=== PATIENT | female | born 1940 | race Caucasian/White ===

== ENCOUNTER → 2018-01-03 07:42 | Outpatient (CLI) | payer MEDICARE, SELFPAY ==
[2018-01-03 09:02] LABS: Anion Gap 8 (5-15); BUN 23 mg/dL (7-18); Calcium,Total 10.3 mg/dL (8.5-10.1); Chloride 104 mmol/L (98-107); Creatinine, Serum 1.21 mg/dL (0.55-1.02); EST Glomerular Filtration Rate 46 mL/min (>60); Est Glom Filt Rate - Afr Amer 55 mL/min (>60); Glucose 93 mg/dL (74-106); Potassium 3.9 mmol/L (3.5-5.1); Sodium Level 144 mmol/L (136-145); T4 Free Direct 1.19 ng/dL (0.76-1.46); Thyroid Stim Hormone (TSH) 2.64 uIU/mL (0.358-3.74)
[2018-01-03 09:19] LABS: PTHIN 152.3 pg/mL (18.4-80.1); Vitamin D,25 Hydroxy 32.3 ng/mL (29.95-100.01)
== END ==
PROVIDERS: Family Provider Family Medicine; PCP Family Medicine; Visit Provider Internal Medicine Endocrinology, Diabetes & Metabolism
DX: E21.0 Primary hyperparathyroidism (principal); E03.9 Hypothyroidism, unspecified; E55.9 Vitamin D deficiency, unspecified
CPT/HCPCS: 36415; 80048; 82306; 82330; 83970; 84439; 84443

== ENCOUNTER → 2018-01-17 09:53 | Outpatient (CLI) | payer MEDICARE, SELFPAY ==
--- NOTE | 2018-01-17 10:10 | RAD_ITS ---
STUDY: X-RAY CHEST REASON FOR EXAM: Female, 77 years old. SOB / SOA TECHNIQUE: Frontal and lateral views of the chest. COMPARISON: 8.917 FINDINGS: Chronic appearing increased interstitial lung markings. There is an elevated right hemidiaphragm. Scoliosis of the thoracic spine. There is no demonstrated pleural abnormality. Enlarged heart size. Normal mediastinum and awais. Normal visualized pulmonary arteries. There is atherosclerotic calcification of the aortic arch with tortuosity. There are diffuse degenerative changes of the visualized thoracic spine. There is degenerative osteoarthritis of the bilateral shoulders. There is no demonstrated abnormality of the visualized soft tissue structures of the upper abdomen. RAD/Chest PA and Lateral IMPRESSION: There are no acute findings. Electronically Signed: Cb Ng MD at 17:02 EDT , Service support ,
== END ==
PROVIDERS: Family Provider Family Medicine; PCP Family Medicine; Visit Provider Family Medicine
DX: R06.02 Shortness of breath (principal); I48.0 Paroxysmal atrial fibrillation
CPT/HCPCS: 71046

== ENCOUNTER → 2018-03-06 12:34 | Outpatient (CLI) | payer MEDICARE, SELFPAY ==
--- NOTE | 2018-03-06 13:54 | STE_ITS ---
Reason For Study: DYSPNEA/SOB Stress Results Protocol: Dobutamine Stress Echocardiogram Maximum Predicted HR: 141 bpm Target HR: 120 bpm% Maximum Predicted HR: 95 % DurationHeart Rate Stage (mm:ss) (bpm) BPDos eComment BASELINE 81 136/62 PT UNABLE TO TURN, STUDY DONE ON BACK DSE- 10 MCG 4:06 84 144/6810.00 DSE- 20 MCG 3:15 11 0 137/6720.00 DSE- 30 MCG 3:23 13 4 143/5730.00ATRIAL FIBRILLATION RECOVERY 81 103/50 SPONTANEOUSLY CONVERTED BACK TO SR W/RBBB Stress Duration: 10:44 mm:ss Maximum Stress HR: 134 bpm Baseline Echocardiogram Findings The estimated ejection fraction is 65 %. Stress Echo Wall motion Data Resting WMIntermediate WMStress WM Resting Wall Motion Wall Motion Stress No regional wall motion No regional wall motion abnormalities noted. abnormalities noted. EKG Data The baseline ECG demonstrates normal sinus rhythm with at rate of _ beats per minute. The patient was titrated from 10 mcg to a maximun of 30 mcg of dobutamine during the stress. The maximum heart rate attained was 134 beats per minute. This was 95% of maximum predicted heart rate. At peak infusion, upsloping ST changes only were noted, which did not meet the criteria for ischemia. No clinical angina was noted. Interpretation Summary The estimated ejection fraction is 65 %. The patient was titrated from 10 mcg to a maximun of 30 mcg of dobutamine during the stress. Normal, adequate, dobutamine echocardiogram. Negative for ischemia by EKG and echocardiographic criteria. No anginal symptoms noted. Patient developed frequent PACs and probably transient atrial fibrillation at peak infusion which spontaneously reverted back to normal sinus rhythm during recovery. Appropriate blood pressure response to dobutamine. Final LVEF is 75%. No complications. Ordering Physician: Prakash Cordova Referring Physician: Prakash Cordova Performed By: Lisa Coats RDCS
--- NOTE | 2018-03-06 14:28 | PFTCOMP ---
COMPLETE PULMONARY FUNCTION TEST INTERPRETATION Brief HPI: Patient is a 77 year old female, currently under the care of Dr. Cordova, who presents to [facility] for complete pulmonary function tests secondary to diagnosis of dyspnea. Respiratory therapist reports good effort and reproducible results. Interpretation: Forced expiration spirometry shows no large airways obstructive ventilatory defect with an FEV1 of 87% predicted. There is no significant bronchodilator response by ATS criteria. Spirograms are of poor quality and plateau slowly, indicating slowly emptying areas of the lungs. The patient had only 4 seconds of exhalation, likely underestimating FVC. The respiratory flow volume loop shows a normal pattern. Lung volumes by body plethysmography show an elevated total lung capacity at 5.15 L, 131% predicted. All other lung volumes are elevated symmetrically. Diffusion capacity by carbon monoxide is decreased at 45% predicted. The airway resistance is normal. No previous pulmonary function tests were available for review. Impression: Isolated reduction in diffusion capacity consistent with a pulmonary vascular disorder. Patient does have hyperinflation on lung exam. Consider chest imaging if not done previously.
== END ==
PROVIDERS: Family Provider Family Medicine; PCP Family Medicine; Visit Provider Internal Medicine Cardiovascular Disease
DX: R06.09 Other forms of dyspnea (principal); I50.31 Acute diastolic (congestive) heart failure; R00.1 Bradycardia, unspecified
CPT/HCPCS: 93017; 93350; 94060; 94726; 94729; J7030; A4216

== ENCOUNTER → 2018-03-20 10:16 | Outpatient (CLI) | payer MEDICARE, SELFPAY ==
--- NOTE | 2018-03-20 10:29 | BD_ITS ---
STUDY: DUAL ENERGY X-RAY ABSORPTIOMETRY / DXA REASON FOR EXAM: Female, 78 years old. The patient is postmenopausal. Loss of height. TECHNIQUE: Bone Mineral Density (BMD) measurements of lumbar spine and left hip were obtained. The patient is status post right hip replacement. COMPARISON: Comparison is made with prior study dated March 27, 2005. FINDINGS: Lumbar Spine (L1-L4): g/cm2 (0.869) / T-score (-2.5) / Z-score (-0.6) Findings are suggestive of osteoporosis with a high fracture risk. Left Femur Total: g/cm2 (0.663) / T-score (-2.7) / Z-score (-0.7) Left Femoral Neck: g/cm2 (0.605) / T-score (-3.1) / Z-score (-1.0) The T-Scores on the most recent prior examination were: Lumbar Spine (L1-L4): There has been worsening of bone density since the previous examination. Left Femur Total: which represents a worsening of 31.3%. BD/Dexa Bone Density Study IMPRESSION: The patient is considered osteoporotic as outlined below according to World Awais Organization (WHO) criteria with a high fracture risk. There has been worsening of bone density since the previous examination. Reference Information: The T-score is the number of standard deviations above or below the standard which is normal for young adults at their peak bone mineral density. The World Health Organization (WHO) interprets the T-scores as follows: Above -1 Normal bone density Between -1 and -2.5 Osteopenia Equal to / or below -2.5 Osteoporosis As a practical clinical guideline, osteopenia may be graded as follows: Mild -1 through -1.5 Moderate -1.6 through -2.0 Severe -2.1 through -2.4 The Z-score is the number of standard deviations above or below age-matched controls. A Z-score of less than -1.5 would be considered abnormal. References: 1. NIH Osteoporosis and Related Bone Diseases http://www.osteo.org 2. International Society for Clinical Densitometry http://www.iscd.org 3. National Osteoporosis Foundation http://www.nof.org Electronically Signed: Bharath Barclay MD at 13:04 EDT Tel [phone], Service support ,
== END ==
PROVIDERS: Family Provider Family Medicine; PCP Family Medicine; Visit Provider Internal Medicine Endocrinology, Diabetes & Metabolism
DX: M85.9 Disorder of bone density and structure, unspecified (principal); N95.9 Unspecified menopausal and perimenopausal disorder
CPT/HCPCS: 77080

== ENCOUNTER 2018-03-24 14:01 | Emergency (ER) | payer MEDICARE, SELFPAY ==
[2018-03-24 14:02] VITALS: BP 154/55; PULSE 69; RESP 22; TEMP 36.8; O2SAT 95; BMI 36.1
--- NOTE | 2018-03-24 16:18 | ED.DCSUM_ITS ---
- ER Visit Summary Date of Service: 03/24/18 Chief Complaint: Tongue bleeding History of Present Illness: The patient is a 78 F who presents with a bleeding tongue wound. She is on Eliquis due to history of atrial fibrillation. She states that about 3 hours prior to presentation she began to have bleeding from her tongue. She is uncertain if she bit it or if it was related to something she ate. She denies any pain. She did feel dizzy when she first started bleeding but that has improved. No chest pain or shortness of breath. Physical Examination: Physical exam afebrile vitals are unremarkable There is a 5 mm wound on the top left side of the tongue with mild persistent oozing and bleeding that appeared consistent with having bitten her tongue Heart regular rate Lungs clear Test Results: Not indicated Emergency Department Course and Treatment: Initially had the patient hold pressure but she would not consistently apply pressure because she states it hurt to do so. I took a piece of gauze and soaked this in thrombin placed this on the tongue and used a nosebleed clamp to hold pressure. When I went back into reevaluate her the patient had removed this. Given that she is unable to persistently apply pressure or hold topical medications she was injected with a half a cc of 1% lidocaine with epinephrine which did achieve hemostasis. Patient was advised to use a soft diet. She will continue her current medications and follow-up with her primary care physician. She was discharged. Treatment Plan: [] Disposition: Discharge Impression: Tongue laceration This note was generated with [employer] dictation software. It may contain incorrect words, spelling, and punctuation that were not noted in review of the chart prior to signing ED Disposition - Plan for ED Patient: Chief Complaint: Dental Referrals: Wu Elena MD [Primary Care Provider] -
--- NOTE | 2018-03-24 16:18 | ED.DEP ---
ED Disposition - Plan for ED Patient: Chief Complaint: Dental Instructions: ED Laceration Mouth Referrals: Wu Elena MD [Primary Care Provider] -
== END 2018-03-24 16:33 | disposition home or self-care (01) ==
PROVIDERS: Emergency Provider Emergency Medicine; Family Provider Family Medicine; PCP Family Medicine
DX: S01.512A Laceration without foreign body of oral cavity, initial encounter (principal); I48.91 Unspecified atrial fibrillation; I11.0 Hypertensive heart disease with heart failure; I50.9 Heart failure, unspecified; E78.00 Pure hypercholesterolemia, unspecified; F32.9 Major depressive disorder, single episode, unspecified; Z86.73 Personal history of transient ischemic attack (TIA), and cerebral infarction without residual deficits; Z79.02 Long term (current) use of antithrombotics/antiplatelets; Z79.51 Long term (current) use of inhaled steroids; Z79.82 Long term (current) use of aspirin; Z79.899 Other long term (current) drug therapy; W26.9XXA Contact with unspecified sharp object(s), initial encounter; Y93.89 Activity, other specified; Y92.89 Other specified places as the place of occurrence of the external cause; Y99.8 Other external cause status
CPT/HCPCS: 99282

== ENCOUNTER → 2018-05-06 10:46 | Outpatient (CLI) | payer MEDICARE, SELFPAY ==
[2018-05-06 11:00] VITALS: PULSE 55; PULSE 58; PULSE 64; PULSE 66; PULSE 74; PULSE 77; PULSE 80; O2SAT 90; O2SAT 92; O2SAT 93; O2SAT 94; O2SAT 96; O2SAT 98
--- NOTE | 2018-05-06 11:00 | CPS ---
Pt arrived via walker on 3L oxygen pulse dose flow via nasal cannula. Spo2 on 3L was 98%. Pt placed on room air prior to start of test. Spo2 remained at 98%.
--- NOTE | 2018-05-06 13:30 | PCM.PSN.6M ---
PSN 6 Minute Walk Test - 6 Minute Walk Test 6 Minute Walk Test: 6 Minute Walk Test PSN:6-Minute Walk Test Start: 05/06/18 11:34 Freq: Status: Active Protocol: RESP.6MINW [place] 05/06/18 11:[place] [facility] [place]06/18 11:47 [facility] [id number] 6 Minute Walk Test Date Performed 05/06/18 Time Performed 11:00 Height 4 ft 11 in Weight: 83.915 kg Weight in Pounds 185.[address]: Jonah Daley Assistive device used: Walker Pre-test Oxygen Delivery Method Room Air Pulse Ox (%) 98 Pulse Rate (60-100 beats/min) 55 L Dyspnea Johnathan Scale (0-10) 1 Exertion Johnathan Scale (6-20) 6 1st minute Oxygen Delivery Method Room Air Pulse Ox (%) 96 Pulse Rate (60-100 beats/min) 64 Number of Rests Taken 0 2nd minute Oxygen Delivery Method Room Air Pulse Ox (%) 94 Pulse Rate (60-100 beats/min) 66 Number of Rests Taken 0 Reported Symptoms Increased Work of Breathing 3rd minute Oxygen Delivery Method Room Air Pulse Ox (%) 92 Pulse Rate (60-100 beats/min) 74 Number of Rests Taken 0 Reported Symptoms Increased Work of Breathing 4th minute Oxygen Delivery Method Room Air Pulse Ox (%) 94 Pulse Rate (60-100 beats/min) 74 Number of Rests Taken 0 Reported Symptoms Increased Work of Breathing 5th minute Oxygen Delivery Method Room Air Pulse Ox (%) 90 Pulse Rate (60-100 beats/min) 80 Number of Rests Taken 0 Reported Symptoms Increased Work of Breathing 6th minute Oxygen Delivery Method Room Air Pulse Ox (%) 93 Pulse Rate (60-100 beats/min) 77 Number of Rests Taken 0 Reported Symptoms Increased Work of Breathing Post-test Oxygen Delivery Method Room Air Pulse Ox (%) 98 Pulse Rate (60-100 beats/min) 58 L Dyspnea Johnathan Scale (0-10) 3 Exertion Johnathan Scale (6-20) 13 Number of Rests Taken 0 Full Laps Walked 6 Partial Lap, Number of Tiles Walked 15 Total Distance Walked (ft) 369 05/06/18 11:00 (created 05/06/18 11:39) Cardiopulmonary Services by Gilda Wood Pt arrived via walker on 3L oxygen pulse dose flow via nasal cannula. Spo2 on 3L was 98%. Pt placed on room air prior to start of test. Spo2 remained at 98%. Initialized on 05/06/18 11:39 - END OF NOTE - Interpretation Interpretation: The patient arrived on 3 L pulse dose oxygen, but testing was completed on room air. The patient was able to walk a total of 369 feet over the course of 6 minutes on room air with the assistance of a walker in no breaks. The patient did experience significant desaturation from a baseline of 98% to as low as 90% with ambulation. No significant tachycardia was noted. These findings are consistent with a respiratory limitation exercise tolerance. - Recommendations Recommendations: No supplemental oxygen is indicated at this time based on this testing. Cannot exclude nocturnal hypoxemia.
== END ==
PROVIDERS: Family Provider Family Medicine; PCP Family Medicine; Visit Provider Internal Medicine Critical Care Medicine
DX: R06.02 Shortness of breath (principal)
CPT/HCPCS: 94618

== ENCOUNTER → 2018-07-07 07:55 | Outpatient (CLI) | payer MEDICARE, SELFPAY ==
[2018-07-07 09:19] LABS: PTHIN 167.6 pg/mL (18.4-80.1); Vitamin D,25 Hydroxy 26.2 ng/mL (29.95-100.01)
[2018-07-07 09:22] LABS: BUN 28 mg/dL (7-18); Glucose 92 mg/dL (74-106)
[2018-07-07 09:23] LABS: Anion Gap 8 (5-15); BUN/Creat Ratio 23.3 RATIO (10-20); Calcium,Total 10.2 mg/dL (8.5-10.1); Chloride 105 mmol/L (98-107); EST Glomerular Filtration Rate 46 mL/min (>60); Est Glom Filt Rate - Afr Amer 56 mL/min (>60); Sodium Level 143 mmol/L (136-145); T4 Free Direct 1.26 ng/dL (0.76-1.46); Thyroid Stim Hormone (TSH) 0.64 uIU/mL (0.358-3.74)
== END ==
PROVIDERS: Family Provider Family Medicine; PCP Family Medicine; Referring Provider Internal Medicine Endocrinology, Diabetes & Metabolism; Visit Provider Internal Medicine Endocrinology, Diabetes & Metabolism
DX: E03.9 Hypothyroidism, unspecified (principal); E21.0 Primary hyperparathyroidism; E55.9 Vitamin D deficiency, unspecified
CPT/HCPCS: 36415; 80048; 82306; 82330; 83970; 84439; 84443

== ENCOUNTER → 2018-09-30 10:19 | Outpatient (CLI) | payer MEDICARE, SELFPAY ==
[2018-07-24 14:31] VITALS: BMI 36.9
--- NOTE | 2018-09-30 10:22 | BI_ITS ---
MAMMOGRAPHY - BILATERAL SCREENING REASON FOR EXAM: Female, 78 years old. Routine annual screening examination. PERTINENT HISTORY: Non-contributory. TECHNIQUE: Digital bilateral breast neal (3D mammographic acquisition) in the CC and MLO projections. 2-D mediolateral oblique (MLO) and craniocaudad (CC) views of both breasts were obtained. CAD: Full Field Digital Mammography with Computer Added Detection was performed. COMPARISON: Comparison is made with prior examination dated September 13, 2017 and August 29, 2016. FINDINGS: Breast Composition: There are scattered areas of fibroglandular density. There are no dominant masses or suspicious calcifications. No other significant abnormalities are identified. There has been no significant change since the prior study. BI/SCREENING MAMM (CAD), BILAT IMPRESSION: Stable bilateral screening mammogram. Yearly follow-up mammogram recommended. (A) ASSESSMENT CATEGORY: BIRADS Category 1: Negative. A letter regarding these results will be sent to the patient by the facility within 30 days. Approximately 10% of breast cancers are not detected by mammography. A normal mammogram should not delay biopsy of a clinically suspicious abnormality. [id number] Electronically Signed: Bharath Barclay MD at 11:18 EST Tel [phone], Service support ,
--- OUTSIDE RECORDS SUMMARY | 2018-12-02 13:02 | XMS RPT_ITS ---
:1940 Author Organization [place] Support Name Relationship Address Phone MITRA DE LA CRUZ Unavailable [address] + [place] [address] PRAKASH DE LA CRUZ Unavailable Unavailable + R Unavailable Unavailable Unavailable MITRA DE LA CRUZ Unavailable [address] + [place] [address] PRAKASH DE LA CRUZ Unavailable . + [place] [address] R Unavailable Unavailable Unavailable MITRA DE LA CRUZ Unavailable [address] + [place] [address] PRAKASH DE LA CRUZ Unavailable Unavailable + [place] [address] R Unavailable Unavailable Unavailable MITRA DE LA CRUZ Unavailable [address] + [place] [address] PRAKASH DE LA CRUZ Unavailable Unavailable + [place] [address] R Unavailable Unavailable Unavailable MITRA DE LA CRUZ Unavailable [address] + [place] [address] PRAKASH DE LA CRUZ Unavailable Unavailable + [place] [address] R Unavailable Unavailable Unavailable MITRA DE LA CRUZ Unavailable [address] + [place] [address] PRAKASH DE LA CRUZ Unavailable Unavailable [phone] MITRA DE LA CRUZ Unavailable [address] + [place] [address] PRAKASH DE LA CRUZ Unavailable Unavailable [phone] MITRA DE LA CRUZ Unavailable [address] + [place] [address] PRAKASH DE LA CRUZ Unavailable [address] + [place] [address] R Unavailable Unavailable Unavailable MITRA DE LA CRUZ Unavailable [address] + [place] [address] PRAKASH DE LA CRUZ Unavailable [address] + [place] [address] R Unavailable Unavailable Unavailable MITRA DE LA CRUZ Unavailable [address] + [place] [address] PRAKASH DE LA CRUZ Unavailable [address] + [place] [address] R Unavailable Unavailable Unavailable MITRA DE LA CRUZ Unavailable [address] + [place] [address] PRAKASH DE LA CRUZ Unavailable Unavailable [phone] MITRA DE LA CRUZ Unavailable [address] + [place] [address] PRAKASH DE LA CRUZ Unavailable [address] + [place] [address] R Unavailable Unavailable Unavailable MITRA DE LA CRUZ Unavailable [address] + [place] [address] PRAKASH DE LA CRUZ Unavailable [address] + [place] [address] R Unavailable Unavailable Unavailable MITRA DE LA CRUZ Unavailable [address] + [place] [address] PRAKASH DE LA CRUZ Unavailable [address] + [place] [address] R Unavailable Unavailable Unavailable MITRA DE LA CRUZ Unavailable [address] + [place] [address] PRAKASH DE LA CRUZ Unavailable [address] + [place] [address] R Unavailable Unavailable Unavailable MITRA DE LA CRUZ Unavailable [address] + [place] [address] PRAKASH DE LA CRUZ Unavailable [address] + [place] [address] R Unavailable Unavailable Unavailable KATTY ANAND Unavailable Unavailable + PRAKASH ANAND Unavailable Unavailable + KATTY ANAND Unavailable Unavailable + CHENGPRAKASH Unavailable Unavailable + MITRA DE LA CRUZ Unavailable [address] + [place] [address] R Unavailable Unavailable Unavailable MITRA DE LA CRUZ Unavailable [address] + [place] [address] R Unavailable Unavailable Unavailable MITRA DE LA CRUZ Unavailable [address] + [place] [address] R Unavailable Unavailable Unavailable Care Team Providers Name Role Phone Arley Malik Attending Unavailable [place], Wu Primary Care Unavailable Tyrell, Noel Y Attending Unavailable Tyrell, Noel Y Referring Unavailable [place], Wu Primary Care Unavailable Mireille Sofia Attending Unavailable Oswaldo, Wu Referring Unavailable Tyrell, Noel Y Attending Unavailable Tyrell, Noel Y Referring Unavailable [place], Wu Primary Care Unavailable Pablo Jang Attending Unavailable Jonah Daley D.O. Referring Unavailable Jonah Daley D.O. Attending Unavailable Jonah Daley D.O. Referring Unavailable [place], Wu Primary Care Unavailable Jonah Daley D.O. Attending Unavailable [place], Wu Referring Unavailable [place], Wu Primary Care Unavailable Jelly Fernández Attending Unavailable Prakash Cordova Attending Unavailable Pablo Jang Attending Unavailable Prakash Cordova Referring Unavailable [place], Wu Primary Care Unavailable Vidal Franks Attending Unavailable Prakash Cordova Attending Unavailable Prakash Cordova Referring Unavailable [place], Wu Primary Care Unavailable Prakash Cordova Attending Unavailable Oswaldo, Wu Referring Unavailable [place], Wu Primary Care Unavailable Oswaldo, Wu Attending Unavailable [place], Wu Referring Unavailable [place], Wu Primary Care Unavailable Tyrell, Noel Y Attending Unavailable Tyrell, Noel Y Referring Unavailable [place], Wu Primary Care Unavailable Prakash Cordova Attending Unavailable [place], Wu Referring Unavailable [place], Wu Primary Care Unavailable Naomi WHARTON (LEBRON) Referring Unavailable WU ELENA Attending Unavailable WU ELENA Attending Unavailable Naomi WHARTON (LEBRON) Referring Unavailable WU ELENA Attending Unavailable WU ELENA Referring Unavailable WU ELENA Referring Unavailable WU ELENA Attending Unavailable WU ELENA Referring Unavailable WU ELENA Referring Unavailable WU ELENA Attending Unavailable WU ELENA Referring Unavailable WU ELENA Referring Unavailable WU ELENA Attending Unavailable LUCHO CURTIS., DR. YONY Drew. Attending Unavailable OSWALDO CURTIS, WU Primary Care Unavailable TYRELL CURTIS, NOEL Y Attending Unavailable OSWALDO CURTIS, WU Primary Care Unavailable TYRELL CURTIS, NOEL Y Attending Unavailable OSWALDO CURTIS, WU Primary Care Unavailable Gerhard, Dr. Kirk Linares Attending Unavailable *SELF, REFERRED Referring Unavailable *SELF, REFERRED Primary Care Unavailable Dr. Nathen Newton Attending Unavailable Gerhard, Dr. Kirk Linares Referring Unavailable *SELF, REFERRED Primary Care Unavailable PROBLEMS PROBLEMS DATE TYPE CONDITION / CODE ATTENDING STATUS SOURCE Unknown E21.0 - Primary Tyrell, Active [facility] hyperparathyroidism / [facility] Community E21.0(ICD-10) Hospital Repository Unknown E55.9 - Vitamin D Tyrell, Active [facility] deficiency, unspecified No[facility] Y Community / E55.9(ICD-10) Hospital Repository Unknown E03.9 - Hypothyroidism, Tyrell, Active [facility] 8 unspecified / Noel Y Community E03.9(ICD-10) Hospital Repository Active Occlusion and stenosis NA Active [facility] 8 of unspecified carotid Clinic Main artery / I65.29(ICD-10) [facility] Repository Unknown R06.02 - Shortness of Pablo Jang Active [facility] 8 breath / R06.02(ICD-10) [facility] Hospital Repository Unknown E78.5 - Hyperlipidemia, Prakash Cordova Active [facility] 8 unspecified / Community E78.5(ICD-10) Hospital Repository Unknown I48.0 - Paroxysmal Prakash Cordova Active [facility] 8 atrial fibrillation / Community I48.0(ICD-10) Hospital Repository Unknown Z86.73 - Personal Prakash Cordova Active [facility] 8 history of transient Community ischemic attack (TIA), Hospital and cerebral infarction Repository without residual deficits / Z86.73(ICD-10) Unknown R06.09 - Other forms of Pablo Jang Active [facility] 8 dyspnea / R06.09(ICD-10) [facility] Hospital Repository Unknown I50.31 - Acute diastolic Prakash Cordova Active [facility] 8 (congestive) heart Community failure / I50.31(ICD-10) Hospital Repository Unknown R00.1 - Bradycardia, Prakash Cordova Active [facility] 8 unspecified / Community R00.1(ICD-10) Hospital Repository Active Hypothyroidism, NA Active [facility] unspecified / Clinic Main E03.9(ICD-10) [facility] Rep[facility] Active Bradycardia, unspecified NA Active [facility] / R00.1(ICD-10) Clinic Main [facility] Active Shortness of breath / NA Active [facility] 8 R06.02(ICD-10) [facility] Main [place] Repository Active Unknown / UNK(Unknown) WU ELENA Active [facility] 8 J [facility] Main [place] Repository Active Thoracic aortic NA Active [facility] 7 aneurysm, without Clinic Main rupture / I71.2(ICD-10) [facility] Repository Active Hypercalcemia / NA Active [facility] 8 E83.52(ICD-10) [facility] Repository PROCEDURES PROCEDURES No Procedure Records FoundRESULTS RESULTS SCREENING MAMM (CAD), Observed: 09/30/2018 Status: F Source: [facility] 10:23 AM [facility] REPOSITORY Imaging Services [address] [place] [address] SCREENING MAMM (CAD), BIL MR#: [id number] Acct: [id number] Name: KALINA DE LA CRUZ Rep #: [id number] : 1940 F 78 From: Bharath Barclay MD PCP: Wu Elena MD Status: [facility] Study: SCREENING MAMM (CAD), BILAT Date of Exam: 09/30/18 Exam# [id number] Ordering Dr: Arley Malik MD MAMMOGRAPHY - BILATERAL SCREENING REASON FOR EXAM: Female, 78 years old. Routine annual screening examination. PERTINENT HISTORY: Non-contributory. TECHNIQUE: Digital bilateral breast neal (3D mammographic acquisition) in the CC and MLO projections. 2-D mediolateral oblique (MLO) and craniocaudad (CC) views of both breasts were obtained. CAD: Full Field Digital Mammography with Computer Added Detection was performed. COMPARISON: Comparison is made with prior examination dated September 13, 2017 and August 29, 2016. FINDINGS: Breast Composition: There are scattered areas of fibroglandular density. There are no dominant masses or suspicious calcifications. No other significant abnormalities are identified. There has been no significant change since the prior study. BI/SCREENING MAMM (CAD), BILAT IMPRESSION: Stable bilateral screening mammogram. Yearly follow-up mammogram recommended. (A) ASSESSMENT CATEGORY: BIRADS Category 1: Negative. A letter regarding these results will be sent to the patient by the facility within 30 days. Approximately 10% of breast cancers are not detected by mammography. A normal mammogram should not delay biopsy of a clinically suspicious abnormality. [id number] Electronically Signed: Bharath Barclay MD at 11:18 EST Tel [phone], Service support , CC: Arley Malik MD; Wu Elena MD Database Programmer: Signed CARDIOLOGY VISIT Observed: 07/28/2018 Status: F Source: [facility] RE[facility] 3:46 PM [facility] REPOSITORY [facility] [address] [place] [address]. [address] [place] [address] OFFICE VISIT Date of Service: 07/24/18 MR#: [id number] Acct: [id number] Name: KALINA DE LA CRUZ Rep #: [id number] : 1940 Provider: Mireille Sofia Age/Sex: 78/F Location[place] [facility] [place]: Signed HPI HPI Chief Complaint: Routine f/u Details: KALINA DE LA CRUZ, is a 78 F who presents to the office today for a cardiovascular follow-up. She recently established cardiac care with us. She has a history of hypertension, diastolic dysfunction, atrial fibrillation with history of CVA in 2016, hyperlipidemia and obstructive sleep apnea. She does not have any chest discomfort/heaviness/tightness. Her exercise tolerance is stable for her age. She does not have any worsening symptoms of shortness of breath. She does not have any orthopnea. She denies PND. She does not have any symptoms of congestive heart failure. She does occasionally have palpitations, especially when she is stressed. She does occasionally have lightheadedness /dizziness. She does not have any near-syncope or syncope. She does occasionally have lower extremity edema. She does not have any symptoms of claudication. Intake Vital Signs07/24/18 Height 4 ft 11 in 07/24/18 Weight: 183 lb 07/24/18 Body Mass Index (BMI) 36.9 07/24/18 Blood Pressure 128/60 H 07/24/18 Blood Pressure Location Lt brachial 07/24/18 Blood Pressure Position Sitting Intake Visit Reasons: 6 M Haz Tech Required: No Accompanied by: None Is patient in pain?: No Allergies adhesive Allergy (Verified 07/24/18 14:39) Rash irbesartan Allergy (Verified 07/24/18 14:39) Unknown solifenacin [From Vesicare] Allergy (Verified 07/24/18 14:39) Unknown sulindac [Sulindac] Allergy (Verified 07/24/18 14:39) Unknown atorvastatin [From Lipitor] Adverse Reaction (Verified 07/24/18 14:39) Unknown lisinopril Adverse Reaction (Verified 07/24/18 14:39) Other losartan potassium [From Cozaar] Adverse Reaction (Verified 07/24/18 14:39) Other metoprolol Adverse Reaction (Verified 07/24/18 14:39) GI Upset ramipril [From Altace] Adverse Reaction (Verified 07/24/18 14:39) Other tramadol Adverse Reaction (Verified 07/24/18 14:39) Unknown Medications Apixaban [Eliquis] 5 mg PO BID 04/17/17 [History Confirmed 07/24/18] Aspirin [Aspirin, Baby] 81 mg PO DAILY@0800 04/17/17 [History Confirmed 07/24/18] Atorvastatin Calcium [Lipitor] 10 mg PO QHS 04/17/17 [History Confirmed 07/24/18] Clobetasol Propionate [Temovate Cream (BKC)] 1 applic TOPICAL BID 04/17/17 [History Confirmed 07/24/18] Fluticasone 0.05% [Flonase Nasal [place]] 1 spray NASAL DAILY 04/17/17 [History Confirmed 07/24/18] Polyethylene Glycol 3350 [Miralax] 17 gm PO DAILY 04/17/17 [History Confirmed 07/24/18] Sertraline HCl [Zoloft] 50 mg PO DAILY 04/17/17 [History Confirmed 07/24/18] albuterol sulfate HFA 90 mcg/actuation aerosol inhaler 2 puff INHALATION Q4H PRN g 09/27/17 [History Confirmed 07/24/18] hydrocortisone 2.5 % topical cream 1 applic TOPICAL BID-QID PRN 09/27/17 [History Confirmed 07/24/18] ketoconazole 2 % topical cream 1 applic TOPICAL .COMPLEX 09/27/17 [History Confirmed 07/24/18] levothyroxine 100 mcg tablet 100 mcg PO .COMPLEX 09/27/17 [History Confirmed 07/24/18] nystatin 100,000 unit/gram topical powder 1 applic TOPICAL .COMPLEX 09/27/17 [History Confirmed 07/24/18] potassium chloride ER 10 mEq tablet,extended release 10 meq PO QDAY 09/27/17 [History Confirmed 07/24/18] flecainide 50 mg tablet 50 mg PO Q12H 10/01/17 [History Confirmed 07/24/18] amlodipine 5 mg tablet 5 mg PO QDAY 01/21/18 [History Confirmed 07/24/18] atenolol 50 mg tablet 25 mg PO BID tab 01/21/18 [History Confirmed 07/24/18] hydrochlorothiazide 25 mg tablet 25 mg PO QDAY #30 tab 01/30/18 [Rx Confirmed 07/24/18] Ejection fraction %: 65 to 70 PFSH Medical History Hyperlipidemia (Chronic) Obstructive sleep apnea (Chronic) Carotid stenosis (Chronic) Chronic kidney disease (Chronic) Dementia (Chronic) Meningioma (Chronic) Chronic diastolic heart failure (Chronic) Paroxysmal atrial fibrillation (Chronic) Diastolic CHF, acute (Chronic) Dyspnea on exertion (Chronic) Hyperparathyroidism (Chronic) Hypothyroidism (Chronic) Lymphomatoid papulosis (Chronic) Hypertension (Chronic) Obesity (Chronic) Right bundle branch block (Chronic) AV block, 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) GERD (gastroesophageal reflux disease) (Chronic) Anxiety and depression (Chronic) Thoracic aortic aneurysm (Chronic) History of CVA (cerebrovascular accident) (Chronic) Osteoarthritis (Chronic) Surgical History History of esophageal dilatation (Chronic) H/O total knee replacement (Chronic) History of incisional hernia repair (Chronic) History of total hip replacement (Chronic) Hx of cholecystectomy (Chronic) Family History Father CVA (cerebral vascular accident) Mother CAD (coronary artery disease) Congestive heart failure Social History Smoking Status: Never smoker second hand exposure: No alcohol intake: never substance use type: does not use caffeine: No what type of physical activity do you participate in: walking ROS Const Const: Negative for weakness, fatigue, fever(s) or headache(s) Eyes Eyes: Negative for blind spots, loss of peripheral vision or transient loss of vision ENT ENT: Negative for headache(s), dizziness, tinnitus or Nosebleed/epistaxis Cardio Chest Pain: No Palpitations: No Edema: None Muscle aches with walking: None Resp Respiratory: Negative for SOB with activity, SOB at rest, SOB orthopnea\SOB lying down or Cough GI GI: Negative nausea, vomiting, heartburn or vomiting blood/hematemesis : Negative for hematuria Musc Musc: Negative for muscle aches/ myalgia Neuro Neuro: Negative for weakness, headache(s), dizziness, near syncope, syncope, lightheadedness or orthostatic symptoms Wood Hematologic/Lymphatic: Negative for easy bleeding Endo Endo: Negative for fatigue Cardiology Exam Const Appearance: cooperative, no acute distress and well developed Orientation: alert, awake and oriented x3 Head Head: normocephalic and atraumatic Mouth: moist mucous membranes Eyes General: appearance normal, both eyes and all related structures Conjunctivae: conjunctivae normal Pupils: PERRL EOM: EOM intact bilaterally Neck Neck: normal visual inspection, no lymphadenopathy and no JVD Carotids: Negative bruit Neck Mass: Negative Neck mass Chest Chest inspection: normal inspection of the chest and symmetric chest movement Auscultation: Bilateral: Diminished Lung Sounds Cardio Palpation: normal PMI Rate: regular rate Rhythm: regular rhythm Heart sounds: S1 normal and S2 normal; negative rub, gallop or murmur GI GI: normal to inspection, soft, no hepatosplenomegaly and bowel sounds present; negative tender Neuro General: alert, awake, oriented x3, CN's II-XI intact bilaterally and moves all extremities Extremities Pulses: Normal: Right Posterior Tibial Pulse, Left Posterior Tibial Pulse, Right Radial Pulse, Left Radial Pulse Lower Extremity Edema: None: Bilateral Psych Psychological: anxious Supplemental Info Stress echocardiogram in 2018 demonstrated: The estimated ejection fraction is 65 %. The patient was titrated from 10 mcg to a maximun of 30 mcg of dobutamine during the stress. Normal, adequate, dobutamine echocardiogram. Negative for ischemia by EKG and echocardiographic criteria. No anginal symptoms noted. Patient developed frequent PACs and probably transient atrial fibrillation at peak infusion which spontaneously reverted back to normal sinus rhythm during recovery. Appropriate blood pressure response to dobutamine. Final LVEF is 75%. No complications. PFT in 2018 demonstrated: Isolated reduction in diffusion capacity consistent with a pulmonary vascular disorder. Patient does have hyperinflation on lung exam. Consider chest imaging if not done previously. Assessment AND Plan 1. Essential hypertension I10 Plan Blood pressure is well controlled on current medications, we do not recommend any changes at this time. 2. Dyspnea on exertion R06.09 Plan Patient does not feel that this has worsened. She does continue to have shortness of breath with exertion. She is concerned about her oxygen being discontinued. Encouraged her to discuss this with her primary care doctor and pulmonology. Feel that her shortness of breath is multifactorial and is likely related to her debility in addition to anxiety. 3. Paroxysmal atrial fibrillation I48.0 Plan Patient has had a few minimal recurrences. She will continue with her rate limiting medication her anti-arrhythmic and her factor Xa inhibitor. 4. Pure hypercholesterolemia E78.00; E78.0 Plan This is managed by her primary care doctor. She will continue with her low-dose statin. Plan Detail Additional Comments Thank you for allowing us to participate in patient's plan of care, if you have any questions please do not hesitate to call. This note was generated using a voice recognition system and there may be incorrect words, spelling or punctuation errors that were not noted when reviewing the office note prior to saving. Follow Up 6 Months (6-9 months with MARTHAN) Coding Level of Care Code Off vis,est,level 3 Diagnoses Essential hypertension I10 Hypertension type: essential hypertension Dyspnea on exertion R06.09 Paroxysmal atrial fibrillation I48.0 Pure hypercholesterolemia E78.00; E78.0 Hyperlipidemia type: pure hypercholesterolemia Coding Level of Care Code Off vis,est,level 3 Diagnoses Essential hypertension I10 Hypertension type: essential hypertension Dyspnea on exertion R06.09 Paroxysmal atrial fibrillation I48.0 Pure hypercholesterolemia E78.00; E78.0 Hyperlipidemia type: pure hypercholesterolemia 07/28/18 0819 <Electronically signed by Mireille FRANCOIS> Date Mireille FRANCOIS Cosigner Signature: Date (if applicable) CC: Wu Elena MD PROGRESS Observed: 07/11/2018 Status: COMPLETED Source: [place] 8:42 AM [facility] [place] REPOSITORY [facility] ID: [id number] Author: Wu Elena Service: (none) Author Type: Physician Type: Progress Notes Filed: 07/11/2018 8:59 AM Note Text: Patient presents with: Recheck HPI: Patient presents today for office visit for follow up. Overall doing well. CARDIO:no significant chest pain. Sees cardiology and pulmonary soon. Breathing is gradually a little worse. No worsening cough. No edema. Never got results of her 6 minute walk test. ENDO:sees endo for her hypercalcemia. Just had labs done. HYPOTHYROID:stable. ANTICOAG:no bleeding issues. PSYCH:deals with her husbands memory issues. DERM: sees derm regularly. Still using oxygen. Using walker. No falls. Component Latest Ref Rng AND Units 01/17/2018 WBC 3.70 - 11.00 k/uL 10.13 RBC 3.90 - 5.20 m/uL 4.20 Hemoglobin 11.5 - 15.5 g/dL 13.0 Hematocrit 36.0 - 46.0 % 41.1 MCV 80.0 - 100.0 fL 97.9 MCH 26.0 - 34.0 pG 31.0 MCHC 30.5 - 36.0 g/dL 31.6 RDW-CV 11.5 - 15.0 % 14.0 Platelet Count 150 - 400 k/uL 249 MPV 9.0 - 12.7 fL 12.7 Neut% % 69.6 Abs Neut (ANC) 1.45 - 7.50 k/uL 7.06 Lymph% % 17.4 Abs Lymph 1.00 - 4.00 k/uL 1.76 Placer% % 9.5 Abs Placer <0.87 k/uL 0.96 (H) Eosin% % 2.9 Abs Eosin <0.46 k/uL 0.29 Baso% % 0.6 Abs Baso <0.11 k/uL 0.06 Nucleated Reds 0 /100 WBC 0.0 Absolute nRBC <0.01 k/uL <0.01 Diff Type Auto Diff Protein, Total 6.3 - 8.0 g/dL 7.2 Albumin 3.9 - 4.9 g/dL 4.2 Calcium 8.5 - 10.2 mg/dL 11.0 (H) Bilirubin, Total 0.2 - 1.3 mg/dL 0.4 Alkaline Phosphatase 32 - 117 U/L 100 AST 13 - 35 U/L 23 Glucose 74 - 99 mg/dL 87 BUN 7 - 21 mg/dL 19 Creatinine 0.58 - 0.96 mg/dL 1.14 (H) Sodium 136 - 144 mmol/L 142 Potassium 3.7 - 5.1 mmol/L 4.4 Chloride 97 - 105 mmol/L 100 CO2 22 - 30 mmol/L 27 Anion Gap 9 - 18 mmol/L 15 ALT 7 - 38 U/L 9 eGFR- 56 eGFR-All Other Races . 46 Total Cholesterol, Nonfasting <200 mg/dL 182 Triglycerides, Nonfasting <150 mg/dL 132 HDL Cholesterol, Nonfasting >39 mg/dL 57 LDL Cholesterol, Nonfasting <100 mg/dL 99 Non HDL Cholesterol, Nonfasting <130 mg/dL 125 VLDL Cholesterol, Nonfasting <30 mg/dL 26 Total Chol/HDL Ratio, Nonfasting <5.10 mg/dL 3.19 LDL/HDL Ratio, Nonfasting <2.54 mg/dL 1.74 TSH 0.400 - 5.500 uU/mL 2.510 NT Pro BNP <450 pg/mL 290 MEDICATIONS: Current Outpatient Prescriptions: hydroCHLOROthiazide (HYDRODIURIL, ESIDRIX) 25 mg tablet Take 25 mg by mouth once daily. levothyroxine (SYNTHROID) 100 mcg tablet Take 1 tablet by mouth once daily. Does not take on Saturday fluticasone (FLONASE) 50 mcg/actuation nasal spray Use 1 [place] in each nostril daily at bedtime. before lying down. hydrocortisone 2.5 % cream Apply 1 application to affected area twice daily. Location: under breasts and groin area apixaban (ELIQUIS) 5 mg tab(s) Take 1 tablet by mouth twice daily. atenolol (TENORMIN) 50 mg tablet Take 0.5 tablets by mouth twice daily. amLODIPine (NORVASC) 5 mg tablet Take 1 tablet by mouth once daily. nystatin (MYCOSTATIN) powder Apply 1 application to affected area four times daily. flecainide (TAMBOCOR) 50 mg tablet Take 1 tablet by mouth twice daily. sertraline (ZOLOFT) 50 mg tablet Take 1 tablet by mouth once daily. ketoconazole (NIZORAL) 2 % cream Apply to affected area sparingly twice daily for fungal rash clobetasol (TEMOVATE) 0.05 % ointment Apply 1 application to affected area twice daily. apply as directed Facial Mask misc To use with Oxygen.Hypoxia, rhinitis potassium chloride (KLOR-CON 10) 10 mEq tablet Take 1 tablet by mouth once daily. atorvastatin (LIPITOR) 10 mg tablet Take 1 tablet by mouth daily at bedtime. For cholesterol. polyethylene glycol 3350 (MIRALAX) 17 gram/dose powder One capful with 8 oz of water each day albuterol HFA (PROAIR HFA) 90 mcg/actuation inhaler Inhale 2 Puffs as instructed every 4 hours as needed for Wheezing/Shortness of Breath. aspirin, enteric coated (ASPIRIN, ENTERIC COATED) 81 mg EC tablet Take 81 mg by mouth once daily. No current facility-administered medications for this visit. ALLERGIES: ALLERGIES Allergen Reactions - Adhesive Tape (Lora* Other: See Comments skin thinning, peels - Altace [Ramipril] Cough see note 04/01/06 - Cozaar [Losartan Po* Cough sx began shortly after stopping BRII-I 04/14 - Irbesartan Other: See Comments headache, dizziness - Lipitor [Atorvastat* Elevated CK. - Lisinopril Cough see note 05/12/03 - Sulindac GI Upset - Tramadol Rash - Vesicare [Solifenac* Intolerance Patient had constipation; dry mouth; nausea PAST MEDICAL HISTORY Diagnosis Date - Abnormal electrocardiogram (ECG) (EKG) RBBB, 1 degree AVB - Adjustment disorder with depressed mood - Benign neoplasm of colon - Carotid stenosis recheck in 03/24 - Chronic kidney disease, stage III (moderate) (HCC) - CVA (cerebral vascular accident) (HCC) - Dementia - Diverticulosis of colon (without mention of hemorrhage) - Essential hypertension, benign - Generalized osteoarthrosis, unspecified site - Gout - Headache(784.0) - Hyperparathyroidism (HCC) 2013 - Lymphomatoid papulosis (HCC) - Meningioma (HCC) - Obesity, unspecified - Other and unspecified hyperlipidemia - Unspecified hypothyroidism PAST SURGICAL HISTORY Procedure Laterality Date - COLONOSCOP W/ OR W/O [facility] SPEC 02/08/99 Colonoscopy - COLONOSCOP W/ OR W/O [facility] SPEC 07/12/2008 Colonoscopy - EGD 01/18/2017 - EGD W/O OR W/BRUSH/WASH 11/04/2012 EGD - EGD W/O OR W/BRUSH/WASH 01/18/2017 - INSER NON-TUNNEL CVC >= 5 YR 06/19/07 - LAP CHOLECYSTECT/CHOLANGIOGRAPHY 06/19/07 - LAPAROSCOPY, SURGICAL, APPENDECTOMY 06/19/07 - REPAIR INCIS HERNIA W MESH 11-18-12 - REPAIR INCISIONAL HERNIA,MATILDE 11-18-12 - TOTAL HIP REPLACEMENT Hip replacement, total, right - TOTAL KNEE REPLACEMENT Knee replacement, total, left and right - TOTAL KNEE REPLACEMENT 2013 Right FAMILY HISTORY Problem Relation Age of Onset - other (tia) Father - other (chf) Mother - other (mi) Maternal Grandfather - other (chf) Maternal Grandmother - other (nonhodgkins lymphoma) Daughter - Prostate Cancer Brother Social History Marital status: Spouse name: Mitra Years of education: Number of children: 3 Occupational History Occupation Employer Comment [employer]* Social History Main Topics Smoking status: Never Smoker Smokeless tobacco: Never Used Alcohol use: Yes Comment: socially Drug use: No Reviewed current medications, allergies, past medical history, surgical history, family history and social history today. REVIEW OF SYSTEMS GI: Negative for change in bowel habit : No history of dysuria, frequency or incontinence All other reviewed and negative other than HPI. HEALTH MAINTENANCE: Reviewed health maintenance issues today and recommended the following in detail. There are no preventive care reminders to display for this patient. VITALS: BP 132/62 Pulse (!) 52 Resp 18 Wt 83.5 kg (184 lb) BMI 35.94 kg/m? Last 4 Encounter Wt Readings: Date: Wt: 07/11/2018 83.5 kg (184 lb) 05/21/2018 82.1 kg (181 lb) 01/17/2018 81.9 kg (180 lb 9.6 oz) 10/03/2017 83.5 kg (184 lb) PHYSICAL EXAMINATION: General appearance: Well appearing, alert, in no acute distress, well-hydrated, well nourished. Skin: Skin color, texture, turgor normal, no suspicious rashes or lesions Head: Normocephalic, no masses, lesions, tenderness or abnormalities Neck: Supple, no adenopathy; thyroid symmetric, normal size, no bruits Lungs: Lungs clear to auscultation. No wheezing, rhonchi, rales Heart: RRR without murmur, gallop, or rubs. No ectopy Abdomen: Normal abdominal exam, Abdomen soft, non-tender. Bowel sounds normal. No masses, organomegaly Extremities: No deformities, edema, skin discoloration, clubbing or cyanosis. Good capillary refill. Musculoskeletal: No joint swelling, deformity, or tenderness Psych: alert and pleasant. ASSESSMENT/PLAN: 1. Paroxysmal atrial fibrillation (HCC) - ICD9: 427.31, ICD10: I48.0 (primary diagnosis) - call if any issues. 2. Chronic anticoagulation - ICD9: V58.61, ICD10: Z79.01 - call if any issues. 3. Essential hypertension, benign - ICD9: 401.1, ICD10: I10 - good control - Continue current medication(s) - Goal of BP <130/80 4. Chronic kidney disease, stage III (moderate) (HCC) - ICD9: 585.3, ICD10: N18.3 - Call if any issues. - CBC + DIFF - BASIC METABOLIC PNL 5. Hyperlipidemia, unspecified hyperlipidemia type - ICD9: 272.4, ICD10: E78.5 Wu Elena MD RTO in six months and prn. CNOV Observed: 07/11/2018 Status: COMPLETED Source: [place] 8:00 AM [facility] REPOSITORY Office Visit (FAMPWS) KALINA DE LA CRUZ ([id number]) 1940 F Date Time Provider Department 07/11/18 8:00 AM [facility] ELENA During your visit today, we recorded the following information about you: Pulse Respiration Blood pressure Weight 52/minute 18/minute 132/62 83.5 kg Sylvie Garcia [employer] COUNCIL DIRECTOR 07/11/2018 8:15 AM Signed Has been a little more short of breath. Is scheduled to see Dr Cordova on 07/24/18. Denies swelling. Having a little more palpitations. Feels her nose is a little more stuffed up. Using [place], Vicks, and Vicks nasal spray. Seeing Dr Santillan next week for follow up. Wu Elena MD 07/11/2018 8:59 AM Signed Patient presents with: Recheck HPI: Patient presents today for office visit for follow up. Overall doing well. CARDIO:no significant chest pain. Sees cardiology and pulmonary soon. Breathing is gradually a little worse. No worsening cough. No edema. Never got results of her 6 minute walk test. ENDO:sees endo for her hypercalcemia. Just had labs done. HYPOTHYROID:stable. ANTICOAG:no bleeding issues. PSYCH:deals with her husbands memory issues. DERM: sees derm regularly. Still using oxygen. Using walker. No falls. Component Latest Ref Rng AND Units 01/17/2018 WBC 3.70 - 11.00 k/uL 10.13 RBC 3.90 - 5.20 m/uL 4.20 Hemoglobin 11.5 - 15.5 g/dL 13.0 Hematocrit 36.0 - 46.0 % 41.1 MCV 80.0 - 100.0 fL 97.9 MCH 26.0 - 34.0 pG 31.0 MCHC 30.5 - 36.0 g/dL 31.6 RDW-CV 11.5 - 15.0 % 14.0 Platelet Count 150 - 400 k/uL 249 MPV 9.0 - 12.7 fL 12.7 Neut% % 69.6 Abs Neut (ANC) 1.45 - 7.50 k/uL 7.06 Lymph% % 17.4 Abs Lymph 1.00 - 4.00 k/uL 1.76 Placer% % 9.5 Abs Placer <0.87 k/uL 0.96 (H) Eosin% % 2.9 Abs Eosin <0.46 k/uL 0.29 Baso% % 0.6 Abs Baso <0.11 k/uL 0.06 Nucleated Reds 0 /100 WBC 0.0 Absolute nRBC <0.01 k/uL <0.01 Diff Type Auto Diff Protein, Total 6.3 - 8.0 g/dL 7.2 Albumin 3.9 - 4.9 g/dL 4.2 Calcium 8.5 - 10.2 mg/dL 11.0 (H) Bilirubin, Total 0.2 - 1.3 mg/dL 0.4 Alkaline Phosphatase 32 - 117 U/L 100 AST 13 - 35 U/L 23 Glucose 74 - 99 mg/dL 87 BUN 7 - 21 mg/dL 19 Creatinine 0.58 - 0.96 mg/dL 1.14 (H) Sodium 136 - 144 mmol/L 142 Potassium 3.7 - 5.1 mmol/L 4.4 Chloride 97 - 105 mmol/L 100 CO2 22 - 30 mmol/L 27 Anion Gap 9 - 18 mmol/L 15 ALT 7 - 38 U/L 9 eGFR- 56 eGFR-All Other Races . 46 Total Cholesterol, Nonfasting <200 mg/dL 182 Triglycerides, Nonfasting <150 mg/dL 132 HDL Cholesterol, Nonfasting >39 mg/dL 57 LDL Cholesterol, Nonfasting <100 mg/dL 99 Non HDL Cholesterol, Nonfasting <130 mg/dL 125 VLDL Cholesterol, Nonfasting <30 mg/dL 26 Total Chol/HDL Ratio, Nonfasting <5.10 mg/dL 3.19 LDL/HDL Ratio, Nonfasting <2.54 mg/dL 1.74 TSH 0.400 - 5.500 uU/mL 2.510 NT Pro BNP <450 pg/mL 290 MEDICATIONS: Current Outpatient Prescriptions: hydroCHLOROthiazide (HYDRODIURIL, ESIDRIX) 25 mg tablet Take 25 mg by mouth once daily. levothyroxine (SYNTHROID) 100 mcg tablet Take 1 tablet by mouth once daily. Does not take on Saturday fluticasone (FLONASE) 50 mcg/actuation nasal spray Use 1 [place] in each nostril daily at bedtime. before lying down. hydrocortisone 2.5 % cream Apply 1 application to affected area twice daily. Location: under breasts and groin area apixaban (ELIQUIS) 5 mg tab(s) Take 1 tablet by mouth twice daily. atenolol (TENORMIN) 50 mg tablet Take 0.5 tablets by mouth twice daily. amLODIPine (NORVASC) 5 mg tablet Take 1 tablet by mouth once daily. nystatin (MYCOSTATIN) powder Apply 1 application to affected area four times daily. flecainide (TAMBOCOR) 50 mg tablet Take 1 tablet by mouth twice daily. sertraline (ZOLOFT) 50 mg tablet Take 1 tablet by mouth once daily. ketoconazole (NIZORAL) 2 % cream Apply to affected area sparingly twice daily for fungal rash clobetasol (TEMOVATE) 0.05 % ointment Apply 1 application to affected area twice daily. apply as directed Facial Mask misc To use with Oxygen.Hypoxia, rhinitis potassium chloride (KLOR-CON 10) 10 mEq tablet Take 1 tablet by mouth once daily. atorvastatin (LIPITOR) 10 mg tablet Take 1 tablet by mouth daily at bedtime. For cholesterol. polyethylene glycol 3350 (MIRALAX) 17 gram/dose powder One capful with 8 oz of water each day albuterol HFA (PROAIR HFA) 90 mcg/actuation inhaler Inhale 2 Puffs as instructed every 4 hours as needed for Wheezing/Shortness of Breath. aspirin, enteric coated (ASPIRIN, ENTERIC COATED) 81 mg EC tablet Take 81 mg by mouth once daily. No current facility-administered medications for this visit. ALLERGIES: ALLERGIES Allergen Reactions - Adhesive Tape (Lora* Other: See Comments skin thinning, peels - Altace [Ramipril] Cough see note 04/01/06 - Cozaar [Losartan Po* Cough sx began shortly after stopping BRII-I 04/14 - Irbesartan Other: See Comments headache, dizziness - Lipitor [Atorvastat* Elevated CK. - Lisinopril Cough see note 05/12/03 - Sulindac GI Upset - Tramadol Rash - Vesicare [Solifenac* Intolerance Patient had constipation; dry mouth; nausea PAST MEDICAL HISTORY Diagnosis Date - Abnormal electrocardiogram (ECG) (EKG) RBBB, 1 degree AVB - Adjustment disorder with depressed mood - Benign neoplasm of colon - Carotid stenosis recheck in 03/24 - Chronic kidney disease, stage III (moderate) (HCC) - CVA (cerebral vascular accident) (HCC) - Dementia - Diverticulosis of colon (without mention of hemorrhage) - Essential hypertension, benign - Generalized osteoarthrosis, unspecified site - Gout - Headache(784.0) - Hyperparathyroidism (HCC) 2013 - Lymphomatoid papulosis (HCC) - Meningioma (HCC) - Obesity, unspecified - Other and unspecified hyperlipidemia - Unspecified hypothyroidism PAST SURGICAL HISTORY Procedure Laterality Date - COLONOSCOP W/ OR W/O [facility] SPEC 02/08/99 Colonoscopy - COLONOSCOP W/ OR W/O [facility] SPEC 07/12/2008 Colonoscopy - EGD 01/18/2017 - EGD W/O OR W/BRUSH/WASH 11/04/2012 EGD - EGD W/O OR W/BRUSH/WASH 01/18/2017 - INSER NON-TUNNEL CVC >= 5 YR 06/19/07 - LAP CHOLECYSTECT/CHOLANGIOGRAPHY 06/19/07 - LAPAROSCOPY, SURGICAL, APPENDECTOMY 06/19/07 - REPAIR INCIS HERNIA W MESH 11-18-12 - REPAIR INCISIONAL HERNIA,MATILDE 11-18-12 - TOTAL HIP REPLACEMENT Hip replacement, total, right - TOTAL KNEE REPLACEMENT Knee replacement, total, left and right - TOTAL KNEE REPLACEMENT 2013 Right FAMILY HISTORY Problem Relation Age of Onset - other (tia) Father - other (chf) Mother - other (mi) Maternal Grandfather - other (chf) Maternal Grandmother - other (nonhodgkins lymphoma) Daughter - Prostate Cancer Brother Social History Marital status: Spouse name: Mitra Years of education: Number of children: 3 Occupational History Occupation Employer Comment [employer]* Social History Main Topics Smoking status: Never Smoker Smokeless tobacco: Never Used Alcohol use: Yes Comment: socially Drug use: No Reviewed current medications, allergies, past medical history, surgical history, family history and social history today. REVIEW OF SYSTEMS GI: Negative for change in bowel habit : No history of dysuria, frequency or incontinence All other reviewed and negative other than HPI. HEALTH MAINTENANCE: Reviewed health maintenance issues today and recommended the following in detail. There are no preventive care reminders to display for this patient. VITALS: BP 132/62 Pulse (!) 52 Resp 18 Wt 83.5 kg (184 lb) BMI 35.94 kg/m? Last 4 Encounter Wt Readings: Date: Wt: 07/11/2018 83.5 kg (184 lb) 05/21/2018 82.1 kg (181 lb) 01/17/2018 81.9 kg (180 lb 9.6 oz) 10/03/2017 83.5 kg (184 lb) PHYSICAL EXAMINATION: General appearance: Well appearing, alert, in no acute distress, well-hydrated, well nourished. Skin: Skin color, texture, turgor normal, no suspicious rashes or lesions Head: Normocephalic, no masses, lesions, tenderness or abnormalities Neck: Supple, no adenopathy; thyroid symmetric, normal size, no bruits Lungs: Lungs clear to auscultation. No wheezing, rhonchi, rales Heart: RRR without murmur, gallop, or rubs. No ectopy Abdomen: Normal abdominal exam, Abdomen soft, non-tender. Bowel sounds normal. No masses, organomegaly Extremities: No deformities, edema, skin discoloration, clubbing or cyanosis. Good capillary refill. Musculoskeletal: No joint swelling, deformity, or tenderness Psych: alert and pleasant. ASSESSMENT/PLAN: 1. Paroxysmal atrial fibrillation (HCC) - ICD9: 427.31, ICD10: I48.0 (primary diagnosis) - call if any issues. 2. Chronic anticoagulation - ICD9: V58.61, ICD10: Z79.01 - call if any issues. 3. Essential hypertension, benign - ICD9: 401.1, ICD10: I10 - good control - Continue current medication(s) - Goal of BP <130/80 4. Chronic kidney disease, stage III (moderate) (HCC) - ICD9: 585.3, ICD10: N18.3 - Call if any issues. - CBC + DIFF - BASIC METABOLIC PNL 5. Hyperlipidemia, unspecified hyperlipidemia type - ICD9: 272.4, ICD10: E78.5 Wu Elena MD RTO in six months and prn. Referring Provider: SELF [[id number]] Allergies As of Date: 07/11/2018 Noted Allergy Reaction ADHESIVE TAPE (ROSINS) 02/21/2011 14 - Other: See Comments Comments: skin thinning, peels ALTACE (RAMIPRIL) 04/01/2006 3 - Cough Comments: see note 04/01/06 COZAAR (LOSARTAN POTASSIUM) 05/06/2006 3 - Cough Comments: sx began shortly after stopping BRII-I 04/14 IRBESARTAN 04/16/2013 14 - Other: See Comments Comments: headache, dizziness LIPITOR (ATORVASTATIN CALCIUM) 03/28/2009 Comments: Elevated CK. LISINOPRIL 11/29/2005 3 - Cough Comments: see note 05/12/03 SULINDAC 11/09/2009 8 - GI Upset TRAMADOL 07/04/2011 2 - Rash VESICARE (SOLIFENACIN SUCCINATE) 10/05/2010 5 - Intolerance Comments: Patient had constipation; dry mouth; nausea Date Reviewed: 07/11/2018 Reviewed by: Sylvie Garcia LPN - Fully Assessed Reason for Visit: Recheck [92] Primary Visit Diagnosis:Paroxysmal atrial fibrillation (HCC) [I48.0] Other Visit Diagnoses:Chronic anticoagulation [Z79.01] Essential hypertension, benign [I10] Chronic kidney disease, stage III (moderate) (HCC) [N18.3] Hyperlipidemia, unspecified hyperlipidemia type [E78.5] Order(s):CBC + DIFF [SQCBCDIF] Order #: [id number] FUTURE BASIC METABOLIC PNL [SQBMP] Order #: [id number] FUTURE Prescriptions as of 07/11/2018 Sig: HYDROCHLOROTHIAZIDE 25 MG TAB* Take 25 mg by mouth once shital* LEVOTHYROXINE 100 MCG TABLET Take 1 tablet by mouth once d* FLUTICASONE 50 MCG/ACTUATION * Use 1 [place] in each nostril d* HYDROCORTISONE 2.5 % TOPICAL * Apply 1 application to affect* APIXABAN 5 MG TABLET Take 1 tablet by mouth twice * ATENOLOL 50 MG TABLET Take 0.5 tablets by mouth twi* AMLODIPINE 5 MG TABLET Take 1 tablet by mouth once d* NYSTATIN 100,000 UNIT/GRAM TO* Apply 1 application to affect* FLECAINIDE 50 MG TABLET Take 1 tablet by mouth twice * SERTRALINE 50 MG TABLET Take 1 tablet by mouth once d* KETOCONAZOLE 2 % TOPICAL CREAM Apply to affected area sparin* CLOBETASOL 0.05 % TOPICAL OIN* Apply 1 application to affect* FACIAL MASK To use with Oxygen. Hypoxi* POTASSIUM CHLORIDE ER 10 MEQ * Take 1 tablet by mouth once d* ATORVASTATIN 10 MG TABLET Take 1 tablet by mouth daily * POLYETHYLENE GLYCOL 3350 17 G* One capful with 8 oz of water* ALBUTEROL SULFATE HFA 90 MCG/* Inhale 2 Puffs as instructed * ASPIRIN 81 MG TABLET,DELAYED * Take 81 mg by mouth once shital* Problem List As Of Date 07/11/2018 Noted Resolved BENIGN HYPERTENSION [I10] INVALID FOR* Hypothyroidism [E03.9] INVALID FOR* More... OBESITY NOS [E66.9] INVALID FOR* Major depressive disorder, recurrent episode, u*INVALID FOR*08/30/2014 GENERAL OSTEOARTHROSIS [M15.9] INVALID FOR*01/12/2008 Hyperlipidemia [E78.5] INVALID FOR* CHOLECYSTITIS SEE ALSO GALLBLADDER ACUTE WITH*INVALID FOR*09/20/2008 CHRONIC KIDNEY DISEASE, STAGE I [N18.1] INVALID FOR*09/20/2008 Osteoarthritis [M19.90] INVALID FOR* CHRONIC KIDNEY DISEASE, STAGE III (MOD) [N18.3] INVALID FOR* More... 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 Bilateral carotid artery stenosis [I65.23] INVALID FOR* More... Shortness of breath [R06.02] INVALID FOR*01/25/2017 More... RODOLFO (obstructive sleep apnea) [G47.33] INVALID FOR* Meningioma (HCC) [D32.9] More... Memory loss [R41.3] INVALID FOR* More... Atrial fibrillation (HCC) [I48.91] INVALID FOR* More... Thoracic aortic aneurysm without rupture (HCC) *INVALID FOR* More... Hypercalcemia [E83.52] INVALID FOR* Chronic anticoagulation [Z79.01] INVALID FOR* Left renal mass [N28.89] INVALID FOR* More... Other osteoporosis without current pathological*INVALID FOR* More... Chronic respiratory failure with hypoxia (HCC) *INVALID FOR* More... Visit Notes: >> Sylvie Garcia [employer] COUNCIL DIRECTOR SatJul 11, 2018 8:09 AM Status: Signed Has been a little more short of breath. Is scheduled to see Dr Cordova on 07/24/18. Denies swelling. Having a little more palpitations. Feels her nose is a little more stuffed up. Using [place], Vicks, and Vicks nasal spray. Seeing Dr Santillan next week for follow up. Disposition: Return in about 6 months (around 01/08/2019). Follow-up and Disposition History Recorded Encounter Status:Closed by [facility] ELENA MD on 07/11/18 VITAMIN D,25 HYDROXY Collected: 07/07/2018 Status: F Source: [place] 8:02 AM [facility] REPOSITORY TYPE CODE TESTS RESULT OUT OF REFERENCE UNITS RANGE LAB L506.1000 29.95-100.01 ng/mL Low Vitamin D 26.2 25-OH Result Comment: Vitamin D 25(OH) Status Range Deficiency <20 ng/mL (50nmol/L) Insuffciency 20 - 30 ng/mL (50 - 75 nmol/L) Sufficiency 30 - 100 ng/mL (75 - 250 nmol/L) Toxicity >100 ng/mL (>250 nmol/L) Performed By: #### L506.1000 #### [facility] [address] [place], [address] PTHIN Collected: 07/07/2018 Status: F Source: [place] 8:02 AM [facility] REPOSITORY TYPE CODE TESTS RESULT OUT OF RANGE REFERENCE UNITS LAB L509.1000 18.4-80.1 pg/mL High PTHIN 167.6 Performed By: #### L509.1000 #### [facility] [address] [place], [address] BASIC METABOLIC Collected: 07/07/2018 Status: F Source: [place] PROFILE (BMP) 8:02 AM [facility] REPOSITORY TYPE CODE TESTS RESULT OUT OF RANGE REFERENCE UNITS LAB L501.0100 74-106 mg/dL Normal GLU 92 Result Comment: Please note revised GLUCOSE reference range effective 2017. LAB L501.1000 7-18 mg/dL High BUN 28 LAB L501.1100 0.55-1.02 mg/dL High CREAT,SERUM 1.20 Result Comment: The validity of the calculated GFR AND GFRAA in patients over 70 years has not been determined. Clinical correlation is essential. LAB L501.1110 >60 mL/min Low EST GFR 46 Result Comment: Non- GFR Calc LAB L501.1115 >60 mL/min Low EST GFR - AA 56 Result Comment: GFR Calc LAB L501.1300 10-20 RATIO High BUN/CRE 23.3 LAB L501.2200 8.5-10.1 mg/dL High CA 10.2 LAB L501.5300 136-145 mmol/L NA Normal 143 LAB L501.5600 3.5-5.1 mmol/L K Normal 4.0 LAB L501.5900 98-107 mmol/L CL Normal 105 LAB L501.6100 21.0-32.0 mmol/L Normal CO2 30.0 LAB L501.6200 5-15 Normal GAP 8 Performed By: #### L500.2500, L501.9520, L506.0400 #### [facility] [address] [place], [place], [id number] THYROID STIM HORMONE Collected: 07/07/2018 Status: F Source: [place] (TSH) 8:02 AM [facility] REPOSITORY TYPE CODE TESTS RESULT OUT OF RANGE REFERENCE UNITS LAB L501.9520 0.358-3.74 uIU/mL Normal TSH 0.64 Performed By: #### L500.2500, L501.9520, L506.0400 #### [facility] [address] [place], [place], [id number] T4 FREE DIRECT Collected: 07/07/2018 Status: F Source: [place] 8:02 AM [facility] REPOSITORY TYPE CODE TESTS RESULT OUT OF RANGE REFERENCE UNITS LAB L506.0400 0.76-1.46 ng/dL Normal T4 FREE 1.26 DIRECT Performed By: #### L500.2500, L501.9520, L506.0400 #### [facility] [place], [address] CALCIUM IONIZED Collected: 07/07/2018 Status: F Source: [place] 8:02 AM [facility] REPOSITORY TYPE CODE TESTS RESULT OUT OF REFERENCE UNITS RANGE LAB L3100.9600 4.5-5.6 mg/dL High IONIZED CA 6.2 Result Comment: Performed at: - [facility] [address] [id number] Project Account Manager: Garret Bean PhD, Phone: [phone] Performed By: #### L3100.9600 #### [facility] (refer to report for specific site) refer to report for address and phone number PROGRESS Observed: 05/21/2018 Status: COMPLETED Source: [place] 8:21 AM [facility] REPOSITORY HNO ID: [id number] Author: Wu Elena Service: (none) Author Type: Physician Type: Progress Notes Filed: 05/21/2018 9:08 AM Note Text: Patient presents with: Recheck Imm/Inj: Flu Vaccine HPI: Patient presents today for office visit for follow up. HYPERTENSION: bp at home has been stable. No side effects from meds. HLD: no myalgias.requests cholesterol was just done. Anticoagulation: had bitten her tongue and had bleeding. They ended up giving her an injection to stop it. She said they called in an ? ENT to fix it. CAD:sees Dr Cordova in July. No chest pain, no increased swelling. No new dizziness. NEURO: has seen neurology. No changes in mentation. HYPOTHYROID:most recent tsh was stable. No new issues. PULM: no worsening shortness of breath. Has seen Dr. Daley. Has not been there recently. Still wearing oxygen Just saw urology. Now seeing every other year. No changes. PSYCH: DERM: no new skin lesions. Only has to see derm prn ENDO:saw Dr. Santillan. She had bone density and is now being treated for her bone density, Component Latest Ref Rng AND Units 01/17/2018 WBC 3.70 - 11.00 k/uL 10.13 RBC 3.90 - 5.20 m/uL 4.20 Hemoglobin 11.5 - 15.5 g/dL 13.0 Hematocrit 36.0 - 46.0 % 41.1 MCV 80.0 - 100.0 fL 97.9 MCH 26.0 - 34.0 pG 31.0 MCHC 30.5 - 36.0 g/dL 31.6 RDW-CV 11.5 - 15.0 % 14.0 Platelet Count 150 - 400 k/uL 249 MPV 9.0 - 12.7 fL 12.7 Neut% % 69.6 Abs Neut (ANC) 1.45 - 7.50 k/uL 7.06 Lymph% % 17.4 Abs Lymph 1.00 - 4.00 k/uL 1.76 Placer% % 9.5 Abs Placer <0.87 k/uL 0.96 (H) Eosin% % 2.9 Abs Eosin <0.46 k/uL 0.29 Baso% % 0.6 Abs Baso <0.11 k/uL 0.06 Nucleated Reds 0 /100 WBC 0.0 Absolute nRBC <0.01 k/uL <0.01 Diff Type Auto Diff Protein, Total 6.3 - 8.0 g/dL 7.2 Albumin 3.9 - 4.9 g/dL 4.2 Calcium 8.5 - 10.2 mg/dL 11.0 (H) Bilirubin, Total 0.2 - 1.3 mg/dL 0.4 Alkaline Phosphatase 32 - 117 U/L 100 AST 13 - 35 U/L 23 Glucose 74 - 99 mg/dL 87 BUN 7 - 21 mg/dL 19 Creatinine 0.58 - 0.96 mg/dL 1.14 (H) Sodium 136 - 144 mmol/L 142 Potassium 3.7 - 5.1 mmol/L 4.4 Chloride 97 - 105 mmol/L 100 CO2 22 - 30 mmol/L 27 Anion Gap 9 - 18 mmol/L 15 ALT 7 - 38 U/L 9 eGFR- 56 eGFR-All Other Races . 46 Total Cholesterol, Nonfasting <200 mg/dL 182 Triglycerides, Nonfasting <150 mg/dL 132 HDL Cholesterol, Nonfasting >39 mg/dL 57 LDL Cholesterol, Nonfasting <100 mg/dL 99 Non HDL Cholesterol, Nonfasting <130 mg/dL 125 VLDL Cholesterol, Nonfasting <30 mg/dL 26 Total Chol/HDL Ratio, Nonfasting <5.10 mg/dL 3.19 LDL/HDL Ratio, Nonfasting <2.54 mg/dL 1.74 TSH 0.400 - 5.500 uU/mL 2.510 NT Pro BNP <450 pg/mL 290 MEDICATIONS: Current Outpatient Prescriptions: hydroCHLOROthiazide (HYDRODIURIL, ESIDRIX) 25 mg tablet Take 25 mg by mouth once daily. fluticasone (FLONASE) 50 mcg/actuation nasal spray Use 1 [place] in each nostril daily at bedtime. before lying down. hydrocortisone 2.5 % cream Apply 1 application to affected area twice daily. Location: under breasts and groin area apixaban (ELIQUIS) 5 mg tab(s) Take 1 tablet by mouth twice daily. atenolol (TENORMIN) 50 mg tablet Take 0.5 tablets by mouth twice daily. amLODIPine (NORVASC) 5 mg tablet Take 1 tablet by mouth once daily. nystatin (MYCOSTATIN) powder Apply 1 application to affected area four times daily. flecainide (TAMBOCOR) 50 mg tablet Take 1 tablet by mouth twice daily. sertraline (ZOLOFT) 50 mg tablet Take 1 tablet by mouth once daily. ketoconazole (NIZORAL) 2 % cream Apply to affected area sparingly twice daily for fungal rash clobetasol (TEMOVATE) 0.05 % ointment Apply 1 application to affected area twice daily. apply as directed Facial Mask misc To use with Oxygen.Hypoxia, rhinitis potassium chloride (KLOR-CON 10) 10 mEq tablet Take 1 tablet by mouth once daily. atorvastatin (LIPITOR) 10 mg tablet Take 1 tablet by mouth daily at bedtime. For cholesterol. levothyroxine (SYNTHROID) 100 mcg tablet Take 1 tablet by mouth once daily. Does not take on Saturday polyethylene glycol 3350 (MIRALAX) 17 gram/dose powder One capful with 8 oz of water each day albuterol HFA (PROAIR HFA) 90 mcg/actuation inhaler Inhale 2 Puffs as instructed every 4 hours as needed for Wheezing/Shortness of Breath. aspirin, enteric coated (ASPIRIN, ENTERIC COATED) 81 mg EC tablet Take 81 mg by mouth once daily. No current facility-administered medications for this visit. ALLERGIES: ALLERGIES Allergen Reactions - Adhesive Tape (Lora* Other: See Comments skin thinning, peels - Altace [Ramipril] Cough see note 04/01/06 - Cozaar [Losartan Po* Cough sx began shortly after stopping BRII-I 04/14 - Irbesartan Other: See Comments headache, dizziness - Lipitor [Atorvastat* Elevated CK. - Lisinopril Cough see note 05/12/03 - Sulindac GI Upset - Tramadol Rash - Vesicare [Solifenac* Intolerance Patient had constipation; dry mouth; nausea PAST MEDICAL HISTORY Diagnosis Date - Abnormal electrocardiogram (ECG) (EKG) RBBB, 1 degree AVB - Adjustment disorder with depressed mood - Benign neoplasm of colon - Carotid stenosis recheck in 03/24 - Chronic kidney disease, stage III (moderate) (HCC) - CVA (cerebral vascular accident) (HCC) - Dementia - Diverticulosis of colon (without mention of hemorrhage) - Essential hypertension, benign - Generalized osteoarthrosis, unspecified site - Gout - Headache(784.0) - Hyperparathyroidism (HCC) 2013 - Lymphomatoid papulosis (HCC) - Meningioma (HCC) - Obesity, unspecified - Other and unspecified hyperlipidemia - Unspecified hypothyroidism PAST SURGICAL HISTORY Procedure Laterality Date - COLONOSCOP W/ OR W/O [facility] SPEC 02/08/99 Colonoscopy - COLONOSCOP W/ OR W/O [facility] SPEC 07/12/2008 Colonoscopy - EGD 01/18/2017 - EGD W/O OR W/BRUSH/WASH 11/04/2012 EGD - EGD W/O OR W/BRUSH/WASH 01/18/2017 - INSER NON-TUNNEL CVC >= 5 YR 06/19/07 - LAP CHOLECYSTECT/CHOLANGIOGRAPHY 06/19/07 - LAPAROSCOPY, SURGICAL, APPENDECTOMY 06/19/07 - REPAIR INCIS HERNIA W MESH 11-18-12 - REPAIR INCISIONAL HERNIA,MATILDE 11-18-12 - TOTAL HIP REPLACEMENT Hip replacement, total, right - TOTAL KNEE REPLACEMENT Knee replacement, total, left and right - TOTAL KNEE REPLACEMENT 2013 Right FAMILY HISTORY Problem Relation Age of Onset - other (tia) Father - other (chf) Mother - other (mi) Maternal Grandfather - other (chf) Maternal Grandmother - other (nonhodgkins lymphoma) Daughter - Prostate Cancer Brother Social History Marital status: Spouse name: Mitra Years of education: Number of children: 3 Occupational History Occupation Employer Comment [employer]* Social History Main Topics Smoking status: Never Smoker Smokeless tobacco: Never Used Alcohol use: Yes Comment: socially Drug use: No Reviewed current medications, allergies, past medical history, surgical history, family history and social history today. REVIEW OF SYSTEMS Neuro: uses walker at home. GI: Negative for change in bowel habit, uses occasional mirlax : some chronic frequency. wears depends. All other reviewed and negative other than HPI. HEALTH MAINTENANCE: Reviewed health maintenance issues today and recommended the following in detail. BP CONTROLLED (<130/80) due on 1956 INFLUENZA(1) due on 05/10/2018 VITALS: BP 118/68 Pulse (!) 52 Resp 16 Wt 82.1 kg (181 lb) BMI 35.35 kg/m? Last 4 Encounter Wt Readings: Date: Wt: 05/21/2018 82.1 kg (181 lb) 01/17/2018 81.9 kg (180 lb 9.6 oz) 10/03/2017 83.5 kg (184 lb) 04/18/2017 85.7 kg (189 lb) PHYSICAL EXAMINATION: General appearance: Well appearing, alert, in no acute distress, well-hydrated, well nourished. and wearing oxygen and using walker Skin: Skin color, texture, turgor normal, no suspicious rashes or lesions Head: Normocephalic, no masses, lesions, tenderness or abnormalities Oropharynx: tongue shows no lesion. Neck: Supple, no adenopathy; thyroid symmetric, normal size, no bruits Lungs: Lungs clear to auscultation. No wheezing, rhonchi, rales Heart: RRR without murmur, gallop, or rubs. No ectopy Abdomen: Normal abdominal exam, Abdomen soft, non-tender. Bowel sounds normal. No masses, organomegaly Extremities: No deformities, edema, skin discoloration, clubbing or cyanosis. Good capillary refill. Psych: alert and oriented. ASSESSMENT/PLAN: 1. Paroxysmal atrial fibrillation (HCC) - ICD9: 427.31, ICD10: I48.0 (primary diagnosis) - continue to see Dr. Cordova. Call if any issues. 2. Need for vaccination - ICD9: V05.9, ICD10: Z23 - INFLUENZA SEASONAL HIGH DOSE AGE 65+ 3. Other osteoporosis without current pathological fracture - ICD9: 733.09, ICD10: M81.8 - Reviewed the need for Calcium and Vitamin D supplements and weight bearing exercise as tolerated 4. Chronic respiratory failure with hypoxia (HCC) - ICD9: 518.83, 799.02, ICD10: J96.11 - continue oxygen. 5. Left renal mass - ICD9: 593.9, ICD10: N28.89 - seeing [facility]. 6. Chronic anticoagulation - ICD9: V58.61, ICD10: Z79.01 - call if any bleeding. 7. Meningioma (HCC) - ICD9: 225.2, ICD10: D32.9 - most recent mri was negative. 8. Memory loss - ICD9: 780.93, ICD10: R41.3 - stable. 9. Hyperparathyroidism (HCC) - ICD9: 252.00, ICD10: E21.3 - sees Dr. Palmer 10. Lymphomatoid papulosis (HCC) - ICD9: 709.8, ICD10: C86.6 - no new skin lesions 11. Essential hypertension, benign - ICD9: 401.1, ICD10: I10 - good control - Continue current medication(s) - Goal of BP <130/80 12. Hypothyroidism, unspecified type - ICD9: 244.9, ICD10: E03.9 - Instructed patient on importance of taking on an empty stomach either first thing in the morning or at bedtime. - LEVOTHYROXINE 100 MCG TABLET 13. Hyperlipidemia, unspecified hyperlipidemia type - ICD9: 272.4, ICD10: E78.5 - good control - Continue current medication. 14. Chronic kidney disease, stage III (moderate) (HCC) - ICD9: 585.3, ICD10: N18.3 - stable 15. Thoracic aortic aneurysm without rupture (HCC) - ICD9: 441.2, ICD10: I71.2 - most recent ct showed just ectasia. 16. Stenosis of carotid artery, unspecified laterality - ICD9: 433.10, ICD10: I65.29 - recheck - US CAROTID ARTERIES [facility]TA [facility] Wu Elena MD PROGRESS Observed: 05/21/2018 Status: COMPLETED Source: [place] 8:15 AM [facility] REPOSITORY HNO ID: [id number] Author: Katty Morales Ma Service: (none) Author Type: (none) Type: Progress Notes Filed: 05/21/2018 9:08 AM Note Text: Influenza Vaccine Documentation: ? Patient is identified by name and date of : Yes ? Patient is older than 6 months of age: Yes ? Patient denies a severe allergy to any vaccine component or to a previous dose of influenza vaccine: Yes FOR EGG ALLERGY CONCERNS, REFER TO PROVIDER. ? Denies allergy to gelatin, formaldehyde, thimerosol :Yes ? Patient is afebrile and not moderately or severely ill: Yes ? Does the patient have a history of Guillain ?Comfort Syndrome (a severe paralytic illness): No ? Denies bone marrow transplant prior 6 months or solid organ transplant prior 3 months: Yes ? Denies a history of fainting after a prior injection or medical procedure? Yes If patient has fainted in the past, the CDC recommends sitting or lying down for 15 minutes after the vaccination. ? VIS sheet provided: Yes ? See Immunization Form in [facility] for details of immunizations administered today. If patient reports dizziness, vision changes or ringing in the ears post vaccination ? please have patient sit or lie down for 15 minutes. CNOV Observed: 05/21/2018 Status: COMPLETED Source: [place] 8:00 AM [facility] REPOSITORY [facility] KALINA DE LA CRUZ ([id number]) 1940 F Date Time Provider Department 05/21/18 8:00 AM [facility] During your visit today, we recorded the following information about you: Pulse Respiration Blood pressure Weight 52/minute 16/minute 118/68 82.1 kg Katty Morales Ma 05/21/2018 9:08 AM Signed Influenza Vaccine Documentation: ? Patient is identified by name and date of : Yes ? Patient is older than 6 months of age: Yes ? Patient denies a severe allergy to any vaccine component or to a previous dose of influenza vaccine: Yes FOR EGG ALLERGY CONCERNS, REFER TO PROVIDER. ? Denies allergy to gelatin, formaldehyde, thimerosol :Yes ? Patient is afebrile and not moderately or severely ill: Yes ? Does the patient have a history of Guillain ?Comfort Syndrome (a severe paralytic illness): No ? Denies bone marrow transplant prior 6 months or solid organ transplant prior 3 months: Yes ? Denies a history of fainting after a prior injection or medical procedure? Yes If patient has fainted in the past, the CDC recommends sitting or lying down for 15 minutes after the vaccination. ? VIS sheet provided: Yes ? See Immunization Form in [facility] for details of immunizations administered today. If patient reports dizziness, vision changes or ringing in the ears post vaccination ? please have patient sit or lie down for 15 minutes. Wu Elena MD 05/21/2018 9:08 AM Signed Patient presents with: Recheck Imm/Inj: Flu Vaccine HPI: Patient presents today for office visit for follow up. HYPERTENSION: bp at home has been stable. No side effects from meds. HLD: no myalgias.requests cholesterol was just done. Anticoagulation: had bitten her tongue and had bleeding. They ended up giving her an injection to stop it. She said they called in an ? ENT to fix it. CAD:sees Dr Cordova in July. No chest pain, no increased swelling. No new dizziness. NEURO: has seen neurology. No changes in mentation. HYPOTHYROID:most recent tsh was stable. No new issues. PULM: no worsening shortness of breath. Has seen Dr. Daley. Has not been there recently. Still wearing oxygen Just saw urology. Now seeing every other year. No changes. PSYCH: DERM: no new skin lesions. Only has to see derm prn ENDO:saw Dr. Santillan. She had bone density and is now being treated for her bone density, Component Latest Ref Rng AND Units 01/17/2018 WBC 3.70 - 11.00 k/uL 10.13 RBC 3.90 - 5.20 m/uL 4.20 Hemoglobin 11.5 - 15.5 g/dL 13.0 Hematocrit 36.0 - 46.0 % 41.1 MCV 80.0 - 100.0 fL 97.9 MCH 26.0 - 34.0 pG 31.0 MCHC 30.5 - 36.0 g/dL 31.6 RDW-CV 11.5 - 15.0 % 14.0 Platelet Count 150 - 400 k/uL 249 MPV 9.0 - 12.7 fL 12.7 Neut% % 69.6 Abs Neut (ANC) 1.45 - 7.50 k/uL 7.06 Lymph% % 17.4 Abs Lymph 1.00 - 4.00 k/uL 1.76 Placer% % 9.5 Abs Placer <0.87 k/uL 0.96 (H) Eosin% % 2.9 Abs Eosin <0.46 k/uL 0.29 Baso% % 0.6 Abs Baso <0.11 k/uL 0.06 Nucleated Reds 0 /100 WBC 0.0 Absolute nRBC <0.01 k/uL <0.01 Diff Type Auto Diff Protein, Total 6.3 - 8.0 g/dL 7.2 Albumin 3.9 - 4.9 g/dL 4.2 Calcium 8.5 - 10.2 mg/dL 11.0 (H) Bilirubin, Total 0.2 - 1.3 mg/dL 0.4 Alkaline Phosphatase 32 - 117 U/L 100 AST 13 - 35 U/L 23 Glucose 74 - 99 mg/dL 87 BUN 7 - 21 mg/dL 19 Creatinine 0.58 - 0.96 mg/dL 1.14 (H) Sodium 136 - 144 mmol/L 142 Potassium 3.7 - 5.1 mmol/L 4.4 Chloride 97 - 105 mmol/L 100 CO2 22 - 30 mmol/L 27 Anion Gap 9 - 18 mmol/L 15 ALT 7 - 38 U/L 9 eGFR- 56 eGFR-All Other Races . 46 Total Cholesterol, Nonfasting <200 mg/dL 182 Triglycerides, Nonfasting <150 mg/dL 132 HDL Cholesterol, Nonfasting >39 mg/dL 57 LDL Cholesterol, Nonfasting <100 mg/dL 99 Non HDL Cholesterol, Nonfasting <130 mg/dL 125 VLDL Cholesterol, Nonfasting <30 mg/dL 26 Total Chol/HDL Ratio, Nonfasting <5.10 mg/dL 3.19 LDL/HDL Ratio, Nonfasting <2.54 mg/dL 1.74 TSH 0.400 - 5.500 uU/mL 2.510 NT Pro BNP <450 pg/mL 290 MEDICATIONS: Current Outpatient Prescriptions: hydroCHLOROthiazide (HYDRODIURIL, ESIDRIX) 25 mg tablet Take 25 mg by mouth once daily. fluticasone (FLONASE) 50 mcg/actuation nasal spray Use 1 [place] in each nostril daily at bedtime. before lying down. hydrocortisone 2.5 % cream Apply 1 application to affected area twice daily. Location: under breasts and groin area apixaban (ELIQUIS) 5 mg tab(s) Take 1 tablet by mouth twice daily. atenolol (TENORMIN) 50 mg tablet Take 0.5 tablets by mouth twice daily. amLODIPine (NORVASC) 5 mg tablet Take 1 tablet by mouth once daily. nystatin (MYCOSTATIN) powder Apply 1 application to affected area four times daily. flecainide (TAMBOCOR) 50 mg tablet Take 1 tablet by mouth twice daily. sertraline (ZOLOFT) 50 mg tablet Take 1 tablet by mouth once daily. ketoconazole (NIZORAL) 2 % cream Apply to affected area sparingly twice daily for fungal rash clobetasol (TEMOVATE) 0.05 % ointment Apply 1 application to affected area twice daily. apply as directed Facial Mask misc To use with Oxygen.Hypoxia, rhinitis potassium chloride (KLOR-CON 10) 10 mEq tablet Take 1 tablet by mouth once daily. atorvastatin (LIPITOR) 10 mg tablet Take 1 tablet by mouth daily at bedtime. For cholesterol. levothyroxine (SYNTHROID) 100 mcg tablet Take 1 tablet by mouth once daily. Does not take on Saturday polyethylene glycol 3350 (MIRALAX) 17 gram/dose powder One capful with 8 oz of water each day albuterol HFA (PROAIR HFA) 90 mcg/actuation inhaler Inhale 2 Puffs as instructed every 4 hours as needed for Wheezing/Shortness of Breath. aspirin, enteric coated (ASPIRIN, ENTERIC COATED) 81 mg EC tablet Take 81 mg by mouth once daily. No current facility-administered medications for this visit. ALLERGIES: ALLERGIES Allergen Reactions - Adhesive Tape (Lora* Other: See Comments skin thinning, peels - Altace [Ramipril] Cough see note 04/01/06 - Cozaar [Losartan Po* Cough sx began shortly after stopping BRII-I 04/14 - Irbesartan Other: See Comments headache, dizziness - Lipitor [Atorvastat* Elevated CK. - Lisinopril Cough see note 05/12/03 - Sulindac GI Upset - Tramadol Rash - Vesicare [Solifenac* Intolerance Patient had constipation; dry mouth; nausea PAST MEDICAL HISTORY Diagnosis Date - Abnormal electrocardiogram (ECG) (EKG) RBBB, 1 degree AVB - Adjustment disorder with depressed mood - Benign neoplasm of colon - Carotid stenosis recheck in 03/24 - Chronic kidney disease, stage III (moderate) (HCC) - CVA (cerebral vascular accident) (HCC) - Dementia - Diverticulosis of colon (without mention of hemorrhage) - Essential hypertension, benign - Generalized osteoarthrosis, unspecified site - Gout - Headache(784.0) - Hyperparathyroidism (HCC) 2013 - Lymphomatoid papulosis (HCC) - Meningioma (HCC) - Obesity, unspecified - Other and unspecified hyperlipidemia - Unspecified hypothyroidism PAST SURGICAL HISTORY Procedure Laterality Date - COLONOSCOP W/ OR W/O [facility] SPEC 02/08/99 Colonoscopy - COLONOSCOP W/ OR W/O [facility] SPEC 07/12/2008 Colonoscopy - EGD 01/18/2017 - EGD W/O OR W/BRUSH/WASH 11/04/2012 EGD - EGD W/O OR W/BRUSH/WASH 01/18/2017 - INSER NON-TUNNEL CVC >= 5 YR 06/19/07 - LAP CHOLECYSTECT/CHOLANGIOGRAPHY 06/19/07 - LAPAROSCOPY, SURGICAL, APPENDECTOMY 06/19/07 - REPAIR INCIS HERNIA W MESH 11-18-12 - REPAIR INCISIONAL HERNIA,MATILDE 11-18-12 - TOTAL HIP REPLACEMENT Hip replacement, total, right - TOTAL KNEE REPLACEMENT Knee replacement, total, left and right - TOTAL KNEE REPLACEMENT 2013 Right FAMILY HISTORY Problem Relation Age of Onset - other (tia) Father - other (chf) Mother - other (mi) Maternal Grandfather - other (chf) Maternal Grandmother - other (nonhodgkins lymphoma) Daughter - Prostate Cancer Brother Social History Marital status: Spouse name: Mitra Years of education: Number of children: 3 Occupational History Occupation Employer Comment [employer]* Social History Main Topics Smoking status: Never Smoker Smokeless tobacco: Never Used Alcohol use: Yes Comment: socially Drug use: No Reviewed current medications, allergies, past medical history, surgical history, family history and social history today. REVIEW OF SYSTEMS Neuro: uses walker at home. GI: Negative for change in bowel habit, uses occasional mirlax : some chronic frequency. wears depends. All other reviewed and negative other than HPI. HEALTH MAINTENANCE: Reviewed health maintenance issues today and recommended the following in detail. BP CONTROLLED (<130/80) due on 1956 INFLUENZA(1) due on 05/10/2018 VITALS: BP 118/68 Pulse (!) 52 Resp 16 Wt 82.1 kg (181 lb) BMI 35.35 kg/m? Last 4 Encounter Wt Readings: Date: Wt: 05/21/2018 82.1 kg (181 lb) 01/17/2018 81.9 kg (180 lb 9.6 oz) 10/03/2017 83.5 kg (184 lb) 04/18/2017 85.7 kg (189 lb) PHYSICAL EXAMINATION: General appearance: Well appearing, alert, in no acute distress, well-hydrated, well nourished. and wearing oxygen and using walker Skin: Skin color, texture, turgor normal, no suspicious rashes or lesions Head: Normocephalic, no masses, lesions, tenderness or abnormalities Oropharynx: tongue shows no lesion. Neck: Supple, no adenopathy; thyroid symmetric, normal size, no bruits Lungs: Lungs clear to auscultation. No wheezing, rhonchi, rales Heart: RRR without murmur, gallop, or rubs. No ectopy Abdomen: Normal abdominal exam, Abdomen soft, non-tender. Bowel sounds normal. No masses, organomegaly Extremities: No deformities, edema, skin discoloration, clubbing or cyanosis. Good capillary refill. Psych: alert and oriented. ASSESSMENT/PLAN: 1. Paroxysmal atrial fibrillation (HCC) - ICD9: 427.31, ICD10: I48.0 (primary diagnosis) - continue to see Dr. Cordova. Call if any issues. 2. Need for vaccination - ICD9: V05.9, ICD10: Z23 - INFLUENZA SEASONAL HIGH DOSE AGE 65+ 3. Other osteoporosis without current pathological fracture - ICD9: 733.09, ICD10: M81.8 - Reviewed the need for Calcium and Vitamin D supplements and weight bearing exercise as tolerated 4. Chronic respiratory failure with hypoxia (HCC) - ICD9: 518.83, 799.02, ICD10: J96.11 - continue oxygen. 5. Left renal mass - ICD9: 593.9, ICD10: N28.89 - seeing [facility]. 6. Chronic anticoagulation - ICD9: V58.61, ICD10: Z79.01 - call if any bleeding. 7. Meningioma (HCC) - ICD9: 225.2, ICD10: D32.9 - most recent mri was negative. 8. Memory loss - ICD9: 780.93, ICD10: R41.3 - stable. 9. Hyperparathyroidism (HCC) - ICD9: 252.00, ICD10: E21.3 - sees Dr. Palmer 10. Lymphomatoid papulosis (HCC) - ICD9: 709.8, ICD10: C86.6 - no new skin lesions 11. Essential hypertension, benign - ICD9: 401.1, ICD10: I10 - good control - Continue current medication(s) - Goal of BP <130/80 12. Hypothyroidism, unspecified type - ICD9: 244.9, ICD10: E03.9 - Instructed patient on importance of taking on an empty stomach either first thing in the morning or at bedtime. - LEVOTHYROXINE 100 MCG TABLET 13. Hyperlipidemia, unspecified hyperlipidemia type - ICD9: 272.4, ICD10: E78.5 - good control - Continue current medication. 14. Chronic kidney disease, stage III (moderate) (HCC) - ICD9: 585.3, ICD10: N18.3 - stable 15. Thoracic aortic aneurysm without rupture (HCC) - ICD9: 441.2, ICD10: I71.2 - most recent ct showed just ectasia. 16. Stenosis of carotid artery, unspecified laterality - ICD9: 433.10, ICD10: I65.29 - recheck - US CAROTID ARTERIES [facility] Wu Elena MD Referring Provider: WU ELENA [[id number]] Allergies As of Date: 05/21/2018 Noted Allergy Reaction ADHESIVE TAPE (ROSINS) 02/21/2011 14 - Other: See Comments Comments: skin thinning, peels ALTACE (RAMIPRIL) 04/01/2006 3 - Cough Comments: see note 04/01/06 COZAAR (LOSARTAN POTASSIUM) 05/06/2006 3 - Cough Comments: sx began shortly after stopping BRII-I 04/14 IRBESARTAN 04/16/2013 14 - Other: See Comments Comments: headache, dizziness LIPITOR (ATORVASTATIN CALCIUM) 03/28/2009 Comments: Elevated CK. LISINOPRIL 11/29/2005 3 - Cough Comments: see note 05/12/03 SULINDAC 11/09/2009 8 - GI Upset TRAMADOL 07/04/2011 2 - Rash VESICARE (SOLIFENACIN SUCCINATE) 10/05/2010 5 - Intolerance Comments: Patient had constipation; dry mouth; nausea Date Reviewed: 05/21/2018 Reviewed by: Katty Morales Ma - Fully Assessed Reason for Visit: Recheck [92] Imm/Inj [58] Cmt: Flu Vaccine Reason For Visit History Recorded Primary Visit Diagnosis:Paroxysmal atrial fibrillation (HCC) [I48.0] Other Visit Diagnoses:Need for vaccination [Z23] Other osteoporosis without current pathological fracture [M81.8] Chronic respiratory failure with hypoxia (HCC) [J96.11] Left renal mass [N28.89] Chronic anticoagulation [Z79.01] Meningioma (HCC) [D32.9] Memory loss [R41.3] Hyperparathyroidism (HCC) [E21.3] Lymphomatoid papulosis (HCC) [C86.6] Essential hypertension, benign [I10] Hypothyroidism, unspecified type [E03.9] Hyperlipidemia, unspecified hyperlipidemia type [E78.5] Chronic kidney disease, stage III (moderate) (HCC) [N18.3] Thoracic aortic aneurysm without rupture (HCC) [I71.2] Stenosis of carotid artery, unspecified laterality [I65.29] Order(s):INFLUENZA SEASONAL HIGH DOSE AGE 65+ [[id number]] Order #: [id number] levothyroxine (SYNTHROID) 100 mcg tabletTake 1 tablet by mouth once daily. Does not take on SaturdayDisp: 30 tabletRfl: 11 CAROTID ARTERIES [facility] [[id number]] Order #: [id number] FUTURE Prescriptions as of 05/21/2018 Sig: HYDROCHLOROTHIAZIDE 25 MG TAB* Take 25 mg by mouth once shital* LEVOTHYROXINE 100 MCG TABLET Take 1 tablet by mouth once d* FLUTICASONE 50 MCG/ACTUATION * Use 1 [place] in each nostril d* HYDROCORTISONE 2.5 % TOPICAL * Apply 1 application to affect* APIXABAN 5 MG TABLET Take 1 tablet by mouth twice * ATENOLOL 50 MG TABLET Take 0.5 tablets by mouth twi* AMLODIPINE 5 MG TABLET Take 1 tablet by mouth once d* NYSTATIN 100,000 UNIT/GRAM TO* Apply 1 application to affect* FLECAINIDE 50 MG TABLET Take 1 tablet by mouth twice * SERTRALINE 50 MG TABLET Take 1 tablet by mouth once d* KETOCONAZOLE 2 % TOPICAL CREAM Apply to affected area sparin* CLOBETASOL 0.05 % TOPICAL OIN* Apply 1 application to affect* FACIAL MASK To use with Oxygen. Hypoxi* POTASSIUM CHLORIDE ER 10 MEQ * Take 1 tablet by mouth once d* ATORVASTATIN 10 MG TABLET Take 1 tablet by mouth daily * POLYETHYLENE GLYCOL 3350 17 G* One capful with 8 oz of water* ALBUTEROL SULFATE HFA 90 MCG/* Inhale 2 Puffs as instructed * ASPIRIN 81 MG TABLET,DELAYED * Take 81 mg by mouth once shital* Problem List As Of Date 05/21/2018 Noted Resolved BENIGN HYPERTENSION [I10] INVALID FOR* Hypothyroidism [E03.9] INVALID FOR* More... OBESITY NOS [E66.9] INVALID FOR* Major depressive disorder, recurrent episode, u*INVALID FOR*08/30/2014 GENERAL OSTEOARTHROSIS [M15.9] INVALID FOR*01/12/2008 Hyperlipidemia [E78.5] INVALID FOR* CHOLECYSTITIS SEE ALSO GALLBLADDER ACUTE WITH*INVALID FOR*09/20/2008 CHRONIC KIDNEY DISEASE, STAGE I [N18.1] INVALID FOR*09/20/2008 Osteoarthritis [M19.90] INVALID FOR* CHRONIC KIDNEY DISEASE, STAGE III (MOD) [N18.3] INVALID FOR* More... 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 Bilateral carotid artery stenosis [I65.23] INVALID FOR* More... Shortness of breath [R06.02] INVALID FOR*01/25/2017 More... RODOLFO (obstructive sleep apnea) [G47.33] INVALID FOR* Meningioma (HCC) [D32.9] More... Memory loss [R41.3] INVALID FOR* More... Atrial fibrillation (HCC) [I48.91] INVALID FOR* More... Thoracic aortic aneurysm without rupture (HCC) *INVALID FOR* More... Hypercalcemia [E83.52] INVALID FOR* Chronic anticoagulation [Z79.01] INVALID FOR* Left renal mass [N28.89] INVALID FOR* More... Other osteoporosis without current pathological*INVALID FOR* More... Chronic respiratory failure with hypoxia (HCC) *INVALID FOR* More... Prescriptions ordered this encounter Disp Refills Start End LEVOTHYROXINE 100 MCG TABLET 30 t* 11 05/21/2018 Route: ORAL Sig: Take 1 tablet by mouth once daily. Does not take on Saturday Medications Discontinued During This Encounter furosemide (LASIX) 20 mg tablet 60 t* 1 01/27/2018 05/21/2018 Route: ORAL Sig: Take 1 tablet by mouth once daily. Disc: Discontinued by another Health Care Provider pantoprazole DR (PROTONIX) 40 mg tab* 30 t* 5 02/07/2017 05/21/2018 Route: ORAL Sig: Take 1 tablet by mouth once daily. Disc: Discontinued by another Health Care Provider levothyroxine (SYNTHROID) 100 mcg ta* 07/19/2017 05/21/2018 Class: Med Update Route: ORAL Sig: Take 1 tablet by mouth once daily. Does not take on Saturday Disc: Reason for discontinue is not on file. Disposition: Return in about 3 months (around 08/20/2018). Follow-up and Disposition History Recorded Encounter Status:Closed by WU ELENA MD on 05/21/18 6 MINUTE WALK TEST Observed: 05/06/2018 Status: F Source: [facility] 1:31 PM [facility] REPOSITORY Pulmonary Services/Neurology [address] [place] [address] MR#: [id number] Acct: [id number] Name: KALINA DE LA CRUZ Rep #: [id number] : 1940 78 From: Pablo Jang MD Referring Dr: Jonah Daley D.O. Date: Ordering Dr: Sex: F C Location: PSN PSN 6 Minute Walk Test - 6 Minute Walk Test 6 Minute Walk Test: 6 Minute Walk Test PSN:6-Minute Walk Test Start: 05/06/18 11:34 Freq: Status: Active Protocol: [id number] Document 05/06/18 11:00 [facility] (Rec: 05/06/18 11:47 [facility] [id number]) 6 Minute Walk Test Date Performed 05/06/18 Time Performed 11:00 Height 4 ft 11 in Weight: 83.915 kg Weight in Pounds 185.[address]: Jonah Daley Assistive device used: Walker Pre-test Oxygen Delivery Method Room Air Pulse Ox (%) 98 Pulse Rate (60-100 beats/min) 55 L Dyspnea Johnathan Scale (0-10) 1 Exertion Johnathan Scale (6-20) 6 1st minute Oxygen Delivery Method Room Air Pulse Ox (%) 96 Pulse Rate (60-100 beats/min) 64 Number of Rests Taken 0 2nd minute Oxygen Delivery Method Room Air Pulse Ox (%) 94 Pulse Rate (60-100 beats/min) 66 Number of Rests Taken 0 Reported Symptoms Increased Work of Breathing 3rd minute Oxygen Delivery Method Room Air Pulse Ox (%) 92 Pulse Rate (60-100 beats/min) 74 Number of Rests Taken 0 Reported Symptoms Increased Work of Breathing 4th minute Oxygen Delivery Method Room Air Pulse Ox (%) 94 Pulse Rate (60-100 beats/min) 74 Number of Rests Taken 0 Reported Symptoms Increased Work of Breathing 5th minute Oxygen Delivery Method Room Air Pulse Ox (%) 90 Pulse Rate (60-100 beats/min) 80 Number of Rests Taken 0 Reported Symptoms Increased Work of Breathing 6th minute Oxygen Delivery Method Room Air Pulse Ox (%) 93 Pulse Rate (60-100 beats/min) 77 Number of Rests Taken 0 Reported Symptoms Increased Work of Breathing Post-test Oxygen Delivery Method Room Air Pulse Ox (%) 98 Pulse Rate (60-100 beats/min) 58 L Dyspnea Johnathan Scale (0-10) 3 Exertion Johnathan Scale (6-20) 13 Number of Rests Taken 0 Full Laps Walked 6 Partial Lap, Number of Tiles Walked 15 Total Distance Walked (ft) 369 05/06/18 11:00 (created 05/06/18 11:39) Cardiopulmonary Services by Gilda Wood Pt arrived via walker on 3L oxygen pulse dose flow via nasal cannula. Spo2 on 3L was 98%. Pt placed on room air prior to start of test. Spo2 remained at 98%. Initialized on 05/06/18 11:39 - END OF NOTE - Interpretation Interpretation: The patient arrived on 3 L pulse dose oxygen, but testing was completed on room air. The patient was able to walk a total of 369 feet over the course of 6 minutes on room air with the assistance of a walker in no breaks. The patient did experience significant desaturation from a baseline of 98% to as low as 90% with ambulation. No significant tachycardia was noted. These findings are consistent with a respiratory limitation exercise tolerance. - Recommendations Recommendations: No supplemental oxygen is indicated at this time based on this testing. Cannot exclude nocturnal hypoxemia. 05/06/18 1331 <Electronically signed by Pablo Jang MD> Date Pablo Jang MD CC: Date Dictated: 05/06/181329 Date Transcribed: 05/06/181329 Database Programmer: Pablo Jang Signed BMP Collected: 04/22/2018 Status: F Source: [facility] 9:27 AM [facility] REPOSITORY TYPE CODE TESTS RESULT OUT OF REFERENCE UNITS RANGE LAB GLU(LOINC) 82-115 mg/dL Glucose Level 84 LAB NA(LOINC) 136-145 mEq/L Sodium Level 144 LAB K(LOINC) 3.5-5.0 mEq/L Potassium Level 4.0 LAB CL(LOINC) 98-110 mEq/L Chloride 106 LAB CO2(LOINC) 22-32 mEq/L CO2 30 LAB EBAL(LOINC 4.0-15.0 mEq/L ) Electrolyte Balance 8.0 LAB BUN(LOINC) 8.0-22.0 mg/dL BUN High 25.0 LAB CRE(LOINC) 0.50-1.20 mg/dL Creatinine Lvl (s) 1.08 LAB BC(LOINC) 10.0-22.0 ratio High BUN/Creatinine 23.1 Ratio LAB CA(LOINC) 8.4-10.1 mg/dL Calcium Lvl High 10.7 Performed By: #### BMP, GFR #### [place] [address] .GFR Collected: 04/22/2018 Status: F Source: [facility] 9:27 AM [facility] REPOSITORY TYPE CODE TESTS RESULT OUT OF REFERENCE UNITS RANGE LAB GFRAA(LOINC ml/min/1.73 ) sqm GFR 59 [place] Result Comment: GFR Population mean for , Non- Americans Ages 20-29 = 116 mL/min/1.73 sq.m. Ages 30-39 = 107 mL/min/1.73 sq.m. Ages 40-49 = 99 mL/min/1.73 sq.m. Ages 50-59 = 93 mL/min/1.73 sq.m. Ages 60-69 = 85 mL/min/1.73 sq.m. Ages 70+ = 75 mL/min/1.73 sq.m. Chronic Kidney Disease: Less than 60 mL/min/1.73 square meters End Stage Renal Disease: Less than 15 mL/min/1.73 square meters LAB GFRNO(LOINC) ml/min/1.73sqm GFR Non- 49 Result Comment: GFR Population mean for , Non- Americans Ages 20-29 = 116 mL/min/1.73 sq.m. Ages 30-39 = 107 mL/min/1.73 sq.m. Ages 40-49 = 99 mL/min/1.73 sq.m. Ages 50-59 = 93 mL/min/1.73 sq.m. Ages 60-69 = 85 mL/min/1.73 sq.m. Ages 70+ = 75 mL/min/1.73 sq.m. Chronic Kidney Disease: Less than 60 mL/min/1.73 square meters End Stage Renal Disease: Less than 15 mL/min/1.73 square meters Performed By: #### BMP, GFR #### [facility] [address] [place] [id number] CARDIOLOGY VISIT Observed: 04/17/2018 Status: F Source: [facility] 1:55 PM [facility] REPOSITORY [facility] [address] [place] [address] OFFICE VISIT Date of Service: 04/17/18 MR#: [id number] Acct: [id number] Name: KALINA DE LA CRUZ Rep #: [id number] : 1940 Provider: Prakash Cordova MD Age/Sex: 78/F Location: [facility] Status: Signed HPI [facility] Chief Complaint: Routine f/u Details: KALINA DE LA CRUZ, is a 78 nondiabetic f who is a former patient of Dr. Caceres and Dr. Clements, originally referred for establishment of care. She has a history of hypertension, diastolic dysfunction, hypertension, nondiabetic, lifelong non-smoker, who apparently has chronic O2 requirements for unknown reasons, previously seen Dr. Daley. She has never had a catheterization. She is a lifelong non-smoker. In addition she has hyperlipidemia, atrial fibrillation on chronic flecainide and Eliquis therapy, last EKG dated 07/19/17 showed normal sinus rhythm with right bundle branch block, previous to that her last atrial fibrillation EKG documented was April 28, 2017. She reports that she had a CVA in July 2016, affecting her speech and some lower extremity movement, which has completely resolved. She is unclear whether she was diagnosed with atrial fibrillation at that time. Apparently she has a history of reactive airway disease and was taken off beta-kaila therapy and allegedly substituted for Cardizem therapy. She was also diagnosed with obstructive sleep apnea, and tried CPAP for 3 months but was unable to tolerate it. She apparently underwent a recent non-walking nuclear stress test in January 2017 which was negative for inducible ischemia. Her most recent echocardiogram dated 11/12/16 showed an EF of 65%, normal RV function, unable to estimate RVSP. Most recent carotid ultrasound dated 02/07/17 showed minimal bilateral disease. She is on chronic O2 therapy, although her PCP apparently orders it. Apparently she was to undergo a DC cardioversion in July 2017 however she had spontaneously converted. Patient denies any chest pain, angina, but does complain of dyspnea on exertion and shortness of breath. I was called by Dr. Daley, her balance screwhead polisher this morning to address her oxygen therapy issues. Apparently her 6 minute walk test demonstrated no desaturation in the past, and he cannot ascertain why she has been on chronic oxygen therapy all this time. Upon asking the patient she adamantly requests continuing her oxygen as she has significant dyspnea on exertion with oxygen walking with her walker. Her symptoms are markedly worsened without oxygen. It is also possible that this may induce anxiety which may trigger her atrial fibrillation despite flecainide therapy In our office today her blood pressure is 120/60, pulse of 56 and regular. Her physical exam is as below. Her lipids as of 01/24/17 show an HDL of 49 and an LDL of 71. Her echocardiogram dated 11/12/16 showed EF of 60%, mild left atrial enlargement. Intake Vital Signs04/17/18 Height 4 ft 11 in 04/17/18 Weight: 183 lb 04/17/18 Body Mass Index (BMI) 36.9 04/17/18 Blood Pressure 120/60 Intake Visit Reasons: 6 M Haz Tech Required: No Is patient in pain?: No Allergies adhesive Allergy (Verified 04/17/18 13:07) Rash irbesartan Allergy (Verified 04/17/18 13:07) Unknown solifenacin [From Vesicare] Allergy (Verified 04/17/18 13:07) Unknown sulindac [Sulindac] Allergy (Verified 04/17/18 13:07) Unknown atorvastatin [From Lipitor] Adverse Reaction (Verified 04/17/18 13:07) Unknown lisinopril Adverse Reaction (Verified 04/17/18 13:07) Other losartan potassium [From Cozaar] Adverse Reaction (Verified 04/17/18 13:07) Other metoprolol Adverse Reaction (Verified 04/17/18 13:07) GI Upset ramipril [From Altace] Adverse Reaction (Verified 04/17/18 13:07) Other tramadol Adverse Reaction (Verified 04/17/18 13:07) Unknown Medications Apixaban [Eliquis] 5 mg PO BID 04/17/17 [History Confirmed 04/17/18] Aspirin [Aspirin, Baby] 81 mg PO DAILY@0800 04/17/17 [History Confirmed 04/17/18] Atorvastatin Calcium [Lipitor] 10 mg PO QHS 04/17/17 [History Confirmed 04/17/18] Clobetasol Propionate [Temovate Cream (BKC)] 1 applic TOPICAL BID 04/17/17 [History Confirmed 04/17/18] Fluticasone 0.05% [Flonase Nasal [place]] 1 spray NASAL DAILY 04/17/17 [History Confirmed 04/17/18] Polyethylene Glycol 3350 [Miralax] 17 gm PO DAILY 04/17/17 [History Confirmed 04/17/18] Sertraline HCl [Zoloft] 50 mg PO DAILY 04/17/17 [History Confirmed 04/17/18] albuterol sulfate HFA 90 mcg/actuation aerosol inhaler 2 puff INHALATION Q4H PRN g 09/27/17 [History Confirmed 04/17/18] hydrocortisone 2.5 % topical cream 1 applic TOPICAL BID-QID PRN 09/27/17 [History Confirmed 04/17/18] ketoconazole 2 % topical cream 1 applic TOPICAL .COMPLEX 09/27/17 [History Confirmed 04/17/18] levothyroxine 100 mcg tablet 100 mcg PO .COMPLEX 09/27/17 [History Confirmed 04/17/18] nystatin 100,000 unit/gram topical powder 1 applic TOPICAL .COMPLEX 09/27/17 [History Confirmed 04/17/18] potassium chloride ER 10 mEq tablet,extended release 10 meq PO QDAY 09/27/17 [History Confirmed 04/17/18] flecainide 50 mg tablet 50 mg PO Q12H 10/01/17 [History Confirmed 04/17/18] amlodipine 5 mg tablet 5 mg PO QDAY 01/21/18 [History Confirmed 04/17/18] atenolol 50 mg tablet 25 mg PO BID tab 01/21/18 [History Confirmed 04/17/18] hydrochlorothiazide 25 mg tablet 25 mg PO QDAY #30 tab 01/30/18 [Rx Confirmed 04/17/18] [facility] Medical History Hyperlipidemia (Chronic) Obstructive sleep apnea (Chronic) Carotid stenosis (Chronic) Chronic kidney disease (Chronic) Dementia (Chronic) Meningioma (Chronic) Chronic diastolic heart failure (Chronic) Paroxysmal atrial fibrillation (Chronic) Diastolic CHF, acute (Chronic) Dyspnea on exertion (Chronic) Hyperparathyroidism (Chronic) Hypothyroidism (Chronic) Lymphomatoid papulosis (Chronic) Hypertension (Chronic) Obesity (Chronic) Right bundle branch block (Chronic) AV block, 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) GERD (gastroesophageal reflux disease) (Chronic) Anxiety and depression (Chronic) Thoracic aortic aneurysm (Chronic) History of CVA (cerebrovascular accident) (Chronic) History of incisional hernia repair (Chronic) Osteoarthritis (Chronic) Surgical History History of esophageal dilatation (Chronic) 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) Hx of cholecystectomy (Chronic) Family History Father CVA (cerebral vascular accident) Mother CAD (coronary artery disease) Congestive heart failure Social History Smoking Status: Never smoker second hand exposure: No alcohol intake: never substance use type: does not use caffeine: No what type of physical activity do you participate in: walking ROS Const Const: Positive for other (Wears oxygen); negative for fatigue, weakness, body ache, fever(s), headache(s), chills, frequent falls, night sweats, daytime sleepiness, difficulty sleeping, excessive sweating, weight gain, weight loss, increased appetite, poor appetite or anorexia Eyes Eyes: Negative for blind spots, loss of peripheral vision, transient loss of vision, blurry vision, change in vision, double vision, floaters, tunnel vision or other ENT ENT: Negative for headache(s), dizziness, hearing loss, tinnitus, Nosebleed/epistaxis, balance problems, post nasal drip, lip swelling, tongue swelling, bleeding gums, hoarseness, neck pain, dry mouth or other Cardio Chest Pain: No Palpitations: No Muscle aches with walking: None Resp Respiratory: Positive for SOB with activity and wheezing; negative for SOB at rest, SOB orthopnea\SOB lying down, Coughing up blood/hemoptysis, chest congestion, pain on inspiration, snoring, stridor, crackles, paroxysmal nocturnal dyspnea or other GI GI: Negative nausea, vomiting, heartburn, constipation, belching, bloating, cramping, vomiting blood/hematemesis, bright, red blood in stools, black,tarry stools, loose stools, Difficulty Swallowing or other : Negative for hematuria, frequent nighttime urination/ nocturia, erectile dysfunction or abnormal vaginal bleeding Musc Musc: Negative for balance problems, muscle aches/ myalgia, muscle weakness or joint pain Skin Skin: Negative redness, non-healing lesions, rash, unusual bruising, skin ulcer, wounds, jaundice or other Neuro Neuro: Positive for other (walker for balance, has scoliosis); negative for weakness, headache(s), frequent falls, blurry vision, double vision, dizziness, lightheadedness, near syncope, syncope, orthostatic symptoms, confusion, memory loss, restless legs, vertigo, seizures or lack of coordination Wood Hematologic/Lymphatic: Negative for easy bleeding, easy bruising, enlarged lymph nodes or other Endo Endo: Negative for fatigue, excessive sweating, cold intolerance, heat intolerance, flushing, increased thirst/drinking, increased hunger, hair loss, hair growth or other Psych Psych: Negative for anxiety, depression, thoughts of harming anyone, thoughts of harming yourself, visual hallucinations, panic attacks or audible hallucinations Allergy Allergy/Immunology: Negative for lip swelling, Negative for tongue swelling, Negative for rash, Negative for throat swelling, Negative for hives Cardiology Exam Const Appearance: cooperative, healthy appearing and no acute distress Nutritional Appearance: well nourished Orientation: alert, oriented x3 and oriented to person Head Head: normal to inspection, atraumatic and normocephalic Nose: external nose normal Face and Sinus: face symmetric Mouth: oral mucosae normal Eyes General: appearance normal, both eyes and all related structures Eyelids: eyelids normal Conjunctivae: conjunctivae normal Pupils: PERRL and normal by confrontation EOM: EOM intact bilaterally Neck Neck: normal visual inspection and full ROM Carotids: normal carotid upstroke Chest Chest inspection: normal inspection of the chest Auscultation: Bilateral: Clear to Auscultation Cardio Palpation: normal PMI Rate: regular rate Rhythm: regular rhythm Heart sounds: S1 normal and S2 normal GI GI: normal to inspection, no hepatosplenomegaly and bowel sounds present Neuro General: alert, oriented x3, awake, CN's II-XI intact bilaterally and moves all extremities Skin Skin: no rashes or lesions noted Extremities Pulses: Normal: Right Femoral Pulse, Left Femoral Pulse, Right Dorsalis Pedis Pulse, Left Dorsalis Pedis Pulse, Right Posterior Tibial Pulse, Left Posterior Tibial Pulse, Right Radial Pulse, Left Radial Pulse Lower Extremity Edema: None: Bilateral Psych Psychological: normal affect Assessment AND Plan 1. Paroxysmal atrial fibrillation I48.0 Plan 1. Atrial fibrillation: The patient appears to be in normal sinus rhythm by physical exam today. EKG confirms that. Her recent stress test in January 2017 was negative for inducible ischemia. She is asymptomatic from a anginal standpoint. Recommend the patient continue her baby aspirin, atenolol, flecainide, hydrochlorothiazide and potassium supplementation. We will hold off on repeat stress testing at this time. I would also recommend that the patient continue chronic O2 therapy going forward despite less than obvious reasons for substantiating her O2 therapy as this will decrease the chance of anxiety, which would precipitate atrial fibrillation. 2. Hyperlipidemia E78.5 Plan 2. Hyperlipidemia: Her LDL and HDL cholesterol are fairly well-controlled as of January 2016. Repeat lipid profile is pending. Continue Zocor. 3. History of CVA (cerebrovascular accident) Z86.73 Plan 3. History of CVA: Patient is currently on chronic Eliquis therapy and doing well. Continue antilipid therapy. Her blood pressure is optimized. 4. Return office in 4 months with either myself or an COUNTY MANAGER This note was generated using a voice recognition system and there may be incorrect words, spelling or punctuation that were not noted when reviewing the office note prior to saving. Plan Detail Follow Up +4M (Cordova or COUNTY MANAGER) Coding Level of Care Code Off vis,est,level 3 Diagnoses Paroxysmal atrial fibrillation I48.0 Hyperlipidemia E78.5 History of CVA (cerebrovascular accident) Z86.73 Coding Level of Care Code Off vis,est,level 3 Diagnoses Paroxysmal atrial fibrillation I48.0 Hyperlipidemia E78.5 History of CVA (cerebrovascular accident) Z86.73 04/17/18 1355 <Electronically signed by Prakash Cordova MD> Date Prakash Cordova MD Cosigner Signature: Date (if applicable) CC: Wu Elena MD PULMONARY VISIT REPORT Observed: 04/17/2018 Status: F Source: [facility] 7:26 AM [facility] Pulmonary Medicine of [address] [place] [address] OFFICE VISIT Date of Service: 04/17/18 MR#: [id number] Acct: [id number] Name: KALINA DE LA CRUZ Rep #: [id number] : 1940 Provider: Jonah Daley D.O. Age/Sex: 78/F [facility] Status: Signed Assessment AND Plan 1. SOB (shortness of breath) R06.02 Plan The patient's exertional dyspnea is likely multifactorial in etiology with obesity, generalized deconditioning, paroxysmal atrial fibrillation and heart failure with preserved ejection fraction all likely contributing. In addition, the patient is a great deal of underlying anxiety, which may also be contributing to her perception of dyspnea. Although the patient was previously being treated for asthma, my clinical suspicion for underlying reactive airway disease is low. Her previous spirometric results indicated no evidence of an obstructive impairment and showed no bronchodilator response. In addition, the patient has never had a significant subjective improvement with the use of albuterol. The patient was started on supplemental oxygen in 2016 following a hospitalization for atrial fibrillation with RVR and decompensated heart failure. Her ongoing oxygen need has never been reassessed since that time. Therefore, I have asked the patient to obtain a repeat 6 minute walk test to assess for ongoing exertional hypoxemia. Orders Orders: 2. RODOLFO (obstructive sleep apnea) G47.33 Plan The patient has known obstructive sleep apnea, but has been adamant that she is not willing to utilize nocturnal Pap therapy, despite recommendations to the contrary. 3. Obesity E66.9 Plan Weight loss through dietary modification and a graded exercise regimen is strongly encouraged. Plan Detail Follow Up 6 Months (CSM) HPI HPI Comments Details: The patient is an 78-year-old female who presents to the clinic today for a routine scheduled follow-up office visit. If you recall, the patient was initially referred to me in 2015 for evaluation of shortness of breath. The patient had been previously followed by Dr. Hicks and was on treatment for presumed asthma. Pulmonary function testing dated January 2016 revealed normal spirometry without a significant response to aerosolized bronchodilators and normal lung volumes. Repeat pulmonary function testing completed in February 2018 revealed normal spirometry, with lung volumes indicating a trend towards hyperinflation and air-trapping. Diffusing capacity was moderately reduced. The patient did complete a walking oximetry study in October 2016 which revealed no need for supplemental oxygen with exertion. However, the patient was hospitalized in January 2017 with atrial fibrillation and decompensated heart failure. When she was discharged from that hospitalization, she was sent home on supplemental oxygen. She has never been reevaluated for her ongoing oxygen requirement since that time. She also has known obstructive sleep apnea with an AHI of 27.5 noted on her last polysomnogram dated February 2016. She has severe underlying anxiety and depression, which has limited her tolerance to nocturnal positive pressure ventilation. She remains noncompliant with use of nocturnal Pap therapy to this day. Today, she reports a multitude of various medical ailments. She is scheduled to follow-up with her newspaper peddler, Dr. Cordova, this afternoon. She remains on 3 L/min of supplemental oxygen with exertion. She reports little overall change in the degree of her exertional dyspnea. She is currently anticoagulated and rate controlled for her underlying paroxysmal atrial fibrillation. She also has underlying heart failure with preserved ejection fraction, for which she is prescribed a daily diuretic. As noted previously, the patient has never had any significant symptom response to the use of albuterol. She reports that she primarily sleeps in her recliner due to shortness of breath upon assuming a supine position. She does report a great deal of fatigue and an occasional dry cough. Her weight has been relatively stable. She denies fevers, chills or night sweats. Intake Vital Signs04/17/18 Height 4 ft 11 in 04/17/18 Weight: 183 lb 04/17/18 Body Mass Index (BMI) 36.9 04/17/18 Blood Pressure 135/57 Intake Visit Reasons: Abnormal PFT Chief Complaint: Routine f/u DME Vendor: [employer] Accompanied by: Self Allergies adhesive Allergy (Verified 04/15/18 18:08) Rash irbesartan Allergy (Verified 04/15/18 18:08) Unknown solifenacin [From Vesicare] Allergy (Verified 04/15/18 18:08) Unknown sulindac [Sulindac] Allergy (Verified 04/15/18 18:08) Unknown atorvastatin [From Lipitor] Adverse Reaction (Verified 04/15/18 18:08) Unknown lisinopril Adverse Reaction (Verified 04/15/18 18:08) Other losartan potassium [From Cozaar] Adverse Reaction (Verified 04/15/18 18:08) Other metoprolol Adverse Reaction (Verified 04/15/18 18:08) GI Upset ramipril [From Altace] Adverse Reaction (Verified 04/15/18 18:08) Other tramadol Adverse Reaction (Verified 04/15/18 18:08) Unknown Medications Apixaban [Eliquis] 5 mg PO BID 04/17/17 [History Confirmed 03/24/18] Aspirin [Aspirin, Baby] 81 mg PO DAILY@0800 04/17/17 [History Confirmed 03/24/18] Atorvastatin Calcium [Lipitor] 10 mg PO QHS 04/17/17 [History Confirmed 03/24/18] Clobetasol Propionate [Temovate Cream (BKC)] 1 applic TOPICAL BID 04/17/17 [History Confirmed 03/24/18] Fluticasone 0.05% [Flonase Nasal [place]] 1 spray NASAL DAILY 04/17/17 [History Confirmed 03/24/18] Polyethylene Glycol 3350 [Miralax] 17 gm PO DAILY 04/17/17 [History Confirmed 03/24/18] Sertraline HCl [Zoloft] 50 mg PO DAILY 04/17/17 [History Confirmed 03/24/18] albuterol sulfate HFA 90 mcg/actuation aerosol inhaler 2 puff INHALATION Q4H PRN g 09/27/17 [History Confirmed 03/24/18] hydrocortisone 2.5 % topical cream 1 applic TOPICAL BID-QID PRN 09/27/17 [History Confirmed 03/24/18] ketoconazole 2 % topical cream 1 applic TOPICAL .COMPLEX 09/27/17 [History Confirmed 03/24/18] levothyroxine 100 mcg tablet 100 mcg PO .COMPLEX 09/27/17 [History Confirmed 03/24/18] nystatin 100,000 unit/gram topical powder 1 applic TOPICAL .COMPLEX 09/27/17 [History Confirmed 03/24/18] potassium chloride ER 10 mEq tablet,extended release 10 meq PO QDAY 09/27/17 [History Confirmed 03/24/18] flecainide 50 mg tablet 50 mg PO Q12H 10/01/17 [History Confirmed 03/24/18] amlodipine 5 mg tablet 5 mg PO QDAY 01/21/18 [History Confirmed 03/24/18] atenolol 50 mg tablet 25 mg PO BID tab 01/21/18 [History Confirmed 03/24/18] hydrochlorothiazide 25 mg tablet 25 mg PO QDAY #30 tab 01/30/18 [Rx Confirmed 03/24/18] PFSH Medical History Hyperlipidemia (Chronic) Obstructive sleep apnea (Chronic) Carotid stenosis (Chronic) Chronic kidney disease (Chronic) Dementia (Chronic) Meningioma (Chronic) Chronic diastolic heart failure (Chronic) Paroxysmal atrial fibrillation (Chronic) Diastolic CHF, acute (Chronic) Dyspnea on exertion (Chronic) Hyperparathyroidism (Chronic) Hypothyroidism (Chronic) Lymphomatoid papulosis (Chronic) Hypertension (Chronic) Obesity (Chronic) Right bundle branch block (Chronic) AV block, 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) GERD (gastroesophageal reflux disease) (Chronic) Anxiety and depression (Chronic) Thoracic aortic aneurysm (Chronic) History of CVA (cerebrovascular accident) (Chronic) History of incisional hernia repair (Chronic) Osteoarthritis (Chronic) Surgical History History of esophageal dilatation (Chronic) 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) Hx of cholecystectomy (Chronic) Family History Father CVA (cerebral vascular accident) Mother CAD (coronary artery disease) Congestive heart failure Social History Smoking Status: Never smoker second hand exposure: No alcohol intake: never substance use type: does not use caffeine: No what type of physical activity do you participate in: walking Review of Systems Const CONSTITUTIONAL: Positive fatigue; negative anorexia, body ache, chills, daytime sleepiness, fever(s), night sweats, oral thrush, stops breathing during sleep, weight loss, sleeping in chair, weight loss, weight gain, frequent colds, seasonal allergies, other, headache(s) or orthopnea EETM Ear Nose Throat Mouth: Positive dry mouth in morning and hard of hearing; negative hoarseness, change in vision, itchy eyes, eye pain, swallowing Difficulty, ear pain, nose bleed, headache(s), mouth pain, nasal congestion, nasal discharge, post nasal drip, sinus pain, sinus pressure, sore throat, other or hearing normal Cardio Cardiovascular: Negative chest pain, chest pain at rest, chest pain with activity, irregular heart rhythm, edema, shortness of breath when lying down, palpitations, murmur or other Resp Respiratory: Positive as per HPI and cough cough: Positive non-productive; negative shortness of breath, pain with cough, wheezing, chest congestion, chest tightness, pain on inspiration, inhalers, increase use of rescue inhalers, snoring, apnea or other Gastro Gastrointestional: Negative bloody stools, change in appetite, difficulty swallowing, reflux, hematemesis, melena stool, loose stool, constipation or other Genitourinary: Negative blood in urine, nocturia, pain with urination or other Musc Musculoskeletal: Negative body pain, back pain, neck pain or other Skin/Breast Skin/Breast: Negative dry skin, itching, rash, unusual bruising, breast lump or other Neuro Neurological: Negative restless legs, confusion, weakness or other Psych Psychocological: Negative abnormal sleep pattern, anxiety, thoughts of hurting self/others, hopelessness or other Lymph Lymphatic: Negative easy bleeding, easy bruising, swollen lymph nodes or other Exam Const Constitutional: Positive conversant, cooperative, in no acute respiratory distress, well developed, well nourished, good hygiene, obese and wearing supplemental oxygen Head Head: Positive normocephalic and atraumatic; negative cyanosis of lips/distal nose Eyes Eye: Positive clear conjunctiva; negative nystagmus or scleral abnormality Ears Ear: Positive hard of hearing and external ears normal; negative hearing normal Nose Nose: Positive external nose normal; negative epistaxis Mouth Mouth: Positive oral mucosae normal and posterior oropharynx is adequate; negative no lesions or post nasal drip Mallampati Score: III: Mallampati Score Neck Neck: Positive normal visual inspection and trachea midline; negative lymphadenopathy Chest Wall Chest: Positive symmetric chest movement Normal AP diameter. Resp lung sounds: Positive good air exchange and normal expiratory time; negative wheezes, rhonchi or rales Cardio Cardiac: Positive regular rate, regular rhythm, S1 normal and S2 normal; negative rub, gallop or murmur GI GI: Positive normal bowel sounds and obese Soft without distention Genitourinary: Positive deferred [facility] Musculoskeletal: Positive using an assistive device for ambulation Skin Pulmonary Skin Exam: Positive intact and dermal atrophy; negative lesion, ulcers or rash Scattered ecchymoses over forearms. Pulses Pulse: Yes Pedal pulses present: Extremities Extremities: No clubbing, No cyanosis, Yes edema Location: lower extremity Neuro Neurologic: Yes conversant, Yes no focal neuro deficits, Yes cooperative Lymph Lymphatic: No lymphadenopathy Psych Appearance: Positive grossly normal Mental Status: Positive mental status grossly normal Mood: Positive congruent mood Affect: Positive normal affect Coding Level of Care Code Off vis,est,level 3 Diagnoses SOB (shortness of breath) R06.02 RODOLFO (obstructive sleep apnea) G47.33 Obesity E66.9 04/17/18 0726 <Electronically signed by Jonah Daley DO> Date Jonah Daley DO Cosigner Signature: Date (if applicable) CC: Wu Elena MD US RENAL Observed: 03/27/2018 Status: F Source: [facility] 8:00 AM [facility] REPOSIT[facility] ORIGINAL Ultrasound retroperitoneum Complete: Attention Urinary tract Clinical Statement: LEFT RENAL MASS, Comparison: Ultrasound 03/21/2017 The right and left kidneys measure 8.3 cm. and 10.3 cm. in length, respectively. RIGHT renal echogenicity is borderline increased. There is no pelvocaliectasis, mass or stone RIGHT kidney. The LEFT kidn ey again demonstrates an exophytic hypoechoic lesion of 1.9 cm that is unchanged from the earlier study. There is moderate posterior acoustic enhancement and this is strongly favored to be a complex cyst with some internal echoes.. There is no free fluid seen in the abdomen. Urinary bladder is poorly distended. Impression: Stable LEFT renal hypoechoic lesion that is favored to be a complex cyst. Interpreted By: Cosmo Segura MD Preliminary Report By: Cosmo Segura MD Electronically Signed By: Cosmo Segura MD Dictated Date: 03/27/2018 8:51:50 AM Prelim Date: 03/27/2018 8:51:50 AM Sign Date: 03/27/2018 8:56:10 AM DISCHARGE INSTRUCTION Observed: 03/24/2018 Status: F Source: [facility] 4:19 PM [facility] REPOSITORY Medical Records Department [address] [place] [address] Discharge Instruction 03/24/18 1618 MR#: [id number] Acct: [id number] Name: KALINA DE LA CRUZ Rep #: [id number] : 1940 78 From: Vidal Franks MD PCP: Wu Elena MD Status: REG ER ED Disposition - Plan for ED Patient: Chief Complaint: Dental Instructions: ED Laceration Mouth Referrals: Wu Elena MD [Primary Care Provider] - What to do if you have Problems For any increased pain, shortness of breath, bleeding, nausea or vomiting, chest pain, or any unexpected problems, contact your Primary Care Provider. Call [facility] ([phone]) or report to the closest Emergency Room. Call 911 if necessary. 03/24/18 1619 <Electronically signed by Vidal Franks MD> Date Vidal Franks MD Cosigner Signature (If Indicated): Date CC: Wu Elena MD EMERGENCY DEPARTMENT Observed: 03/24/2018 Status: F Source: [facility] SUMMARY 4:18 PM [facility] REPOSITORY Medical Records Department [address] [place] [address] Emergency Department Summary 03/24/18 1615 MR#: [id number] Acct: [id number] Name: KALINA DE LA CRUZ Rep #: [id number] : 1940 78 From: Vidal Franks MD PCP: Wu Elena MD Status: REG ER - ER Visit Summary Date of Service: 03/24/18 Chief Complaint: Tongue bleeding History of Present Illness: The patient is a 78 F who presents with a bleeding tongue wound. She is on Eliquis due to history of atrial fibrillation. She states that about 3 hours prior to presentation she began to have bleeding from her tongue. She is uncertain if she bit it or if it was related to something she ate. She denies any pain. She did feel dizzy when she first started bleeding but that has improved. No chest pain or shortness of breath. Physical Examination: Physical exam afebrile vitals are unremarkable There is a 5 mm wound on the top left side of the tongue with mild persistent oozing and bleeding that appeared consistent with having bitten her tongue Heart regular rate Lungs clear Test Results: Not indicated Emergency Department Course and Treatment: Initially had the patient hold pressure but she would not consistently apply pressure because she states it hurt to do so. I took a piece of gauze and soaked this in thrombin placed this on the tongue and used a nosebleed clamp to hold pressure. When I went back into reevaluate her the patient had removed this. Given that she is unable to persistently apply pressure or hold topical medications she was injected with a half a cc of 1% lidocaine with epinephrine which did achieve hemostasis. Patient was advised to use a soft diet. She will continue her current medications and follow-up with her primary care physician. She was discharged. Treatment Plan: [] Disposition: Discharge Impression: Tongue laceration This note was generated with Chirpme dictation software. It may contain incorrect words, spelling, and punctuation that were not noted in review of the chart prior to signing ED Disposition - Plan for ED Patient: Chief Complaint: Dental Referrals: Wu Elena MD [Primary Care Provider] - What to do if you have Problems For any increased pain, shortness of breath, bleeding, nausea or vomiting, chest pain, or any unexpected problems, contact your Primary Care Provider. Call [facility] ([phone]) or report to the closest Emergency Room. Call 911 if necessary. 03/24/18 1798 <Electronically signed by Vidal Franks MD> Date Vidal Franks MD Cosigner Signature (If Indicated): Date CC: Wu Elena MD DEXA BONE DENSITY Observed: 03/20/2018 Status: F Source: [facility] STUDY 10:21 AM [facility] REPOSITORY Imaging Services [address] [place], [place] [address] [address] Dexa Bone Density Study MR#: [id number] Acct: [id number] Name: KALINA DE LA CRUZ Rep #: [id number] : 1940 F 78 From: Bharath Barclay MD PCP: Wu Elena MD Status: REG CLI Study: Dexa Bone Density Study Date of Exam: 03/20/18 Exam# [id number] Ordering Dr: Noel Santillan STUDY: DUAL ENERGY X-RAY ABSORPTIOMETRY / DXA REASON FOR EXAM: Female, 78 years old. The patient is postmenopausal. Loss of height. TECHNIQUE: Bone Mineral Density (BMD) measurements of lumbar spine and left hip were obtained. The patient is status post right hip replacement. COMPARISON: Comparison is made with prior study dated March 27, 2005. FINDINGS: Lumbar Spine (L1-L4): g/cm2 (0.869) / T-score (-2.5) / Z-score (-0.6) Findings are suggestive of osteoporosis with a high fracture risk. Left Femur Total: g/cm2 (0.663) / T-score (-2.7) / Z- score (-0.7) Left Femoral Neck: g/cm2 (0.605) / T-score (-3.1) / Z- score (-1.0) The T-Scores on the most recent prior examination were: Lumbar Spine (L1-L4): There has been worsening of bone density since the previous examination. Left Femur Total: which represents a worsening of 31.3%. BD/Dexa Bone Density Study IMPRESSION: The patient is considered osteoporotic as outlined below according to World Awais Organization (WHO) criteria with a high fracture risk. There has been worsening of bone density since the previous examination. Reference Information: The T-score is the number of standard deviations above or below the standard which is normal for young adults at their peak bone mineral density. The World Health Organization (WHO) interprets the T-scores as follows: Above -1 Normal bone density Between -1 and -2.5 Osteopenia Equal to / or below -2.5 Osteoporosis As a practical clinical guideline, osteopenia may be graded as follows: Mild -1 through -1.5 Moderate -1.6 through -2.0 Severe -2.1 through -2.4 The Z-score is the number of standard deviations above or below age-matched controls. A Z-score of less than -1.5 would be considered abnormal. References: 1. NIH Osteoporosis and Related Bone Diseases http://www.osteo.org 2. International Society for Clinical Densitometry http://www.iscd.org 3. National Osteoporosis Foundation http://www.nof.org Electronically Signed: Bharath Barclay MD at 13:04 EDT Tel [phone], Service support , CC: Noel Santillan; Wu Elena MD Database Programmer: Signed STRESS TEST ECHO W/O Observed: 03/07/2018 Status: F Source: [facility] CONTRAST 9:21 AM [facility] REPOSITORY Cardiovascular Services [address] [place] [address] Stress Test Echo w/o Contrast MR#: [id number] Acct: [id number] Name: KALINA DE LA CRUZ Rep #: [id number] : 1940 77 From: Prakash Cordova MD Primary Care: Wu Elena MD Status: REG CLI Ordering Dr: Prakash Cordova MD Sex: F C Reason For Study: DYSPNEA/SOB Stress Results Protocol: Dobutamine Stress Echocardiogram Maximum Predicted HR: 141 bpm Target HR: 120 bpm% Maximum Predicted HR: 95 % DurationHeart Rate Stage (mm:ss) (bpm) BPDos eComment BASELINE 81 136/62 PT UNABLE TO TURN, STUDY DONE ON BACK DSE- 10 MCG 4:06 84 144/6810.00 DSE- 20 MCG 3:15 11 0 137/6720.00 DSE- 30 MCG 3:23 13 4 143/5730.00ATRIAL FIBRILLATION RECOVERY 81 103/50 SPONTANEOUSLY CONVERTED BACK TO SR W/RBBB Stress Duration: 10:44 mm:ss Maximum Stress HR: 134 bpm Baseline Echocardiogram Findings The estimated ejection fraction is 65 %. Stress Echo Wall motion Data Resting WMIntermediate WMStress WM Resting Wall Motion Wall Motion Stress No regional wall motion No regional wall motion abnormalities noted. abnormalities noted. EKG Data The baseline ECG demonstrates normal sinus rhythm with at rate of _ beats per minute. The patient was titrated from 10 mcg to a maximun of 30 mcg of dobutamine during the stress. The maximum heart rate attained was 134 beats per minute. This was 95% of maximum predicted heart rate. At peak infusion, upsloping ST changes only were noted, which did not meet the criteria for ischemia. No clinical angina was noted. Interpretation Summary The estimated ejection fraction is 65 %. The patient was titrated from 10 mcg to a maximun of 30 mcg of dobutamine during the stress. Normal, adequate, dobutamine echocardiogram. Negative for ischemia by EKG and echocardiographic criteria. No anginal symptoms noted. Patient developed frequent PACs and probably transient atrial fibrillation at peak infusion which spontaneously reverted back to normal sinus rhythm during recovery. Appropriate blood pressure response to dobutamine. Final LVEF is 75%. No complications. Ordering Physician: Prakash Cordova Referring Physician: Prakash Cordova Performed By: Lisa Coats RDCS 03/07/18919 Date Prakash Cordova MD CC: Prakash Cordova MD; Wu Elena MD Date Dictated: 03/06/18 1357 Date Transcribed: 03/07/18919 Database Programmer: Signed PULMONARY FUNCTION Observed: 03/06/2018 Status: F Source: [facility] REPORT COMP 2:31 PM [facility] REPOSITORY Pulmonary Services/Neurology [address] [place] [address] MR#: [id number] Acct: [id number] Name: KALINA DE LA CRUZ Rep #: [id number] : 1940 77 From: Pablo Jang MD Referring Dr: Prakash Cordova MD Status: REG CLI Ordering Dr: Date: Location: [facility] Sex: F C COMPLETE PULMONARY FUNCTION TEST INTERPRETATION Brief HPI: Patient is a 77 year old female, currently under the care of Dr. Cordova, who presents to [facility] for complete pulmonary function tests secondary to diagnosis of dyspnea. Respiratory therapist reports good effort and reproducible results. Interpretation: Forced expiration spirometry shows no large airways obstructive ventilatory defect with an FEV1 of 87% predicted. There is no significant bronchodilator response by ATS criteria. Spirograms are of poor quality and plateau slowly, indicating slowly emptying areas of the lungs. The patient had only 4 seconds of exhalation, likely underestimating FVC. The respiratory flow volume loop shows a normal pattern. Lung volumes by body plethysmography show an elevated total lung capacity at 5.15 L, 131% predicted. All other lung volumes are elevated symmetrically. Diffusion capacity by carbon monoxide is decreased at 45% predicted. The airway resistance is normal. No previous pulmonary function tests were available for review. Impression: Isolated reduction in diffusion capacity consistent with a pulmonary vascular disorder. Patient does have hyperinflation on lung exam. Consider chest imaging if not done previously. 03/06/18 1431 <Electronically signed by Pablo Jang MD> Date Pablo Jang MD CC: Pablo Jang MD; Prakash Cordova MD; Wu Elena MD Date Dictated: 03/06/18 1428 Date Transcribed: 03/06/181427 Database Programmer: AVRIL Signed DERMATOPATHOLOGY Observed: 02/04/2018 Status: F Source: [place] 12:00 [facility] Pathologist: NATHEN NEWTON MD Date of Procedure: 02/04/2018 Date Received: 02/05/2018 Date Reported 02/06/2018 Submitting Physician: KIRK LOO MD Location: [facility] Copy To/Referring/Attending: CHANDLER CORDOVA MD FINAL DIAGNOSIS SKIN, CENTRAL NECK, SHAVE BIOPSY: SEBORRHEIC KERATOSIS, PRESENT ON THE DEEP AND PERIPHERAL MARGIN. Electronically Signed Out by NATHEN NEWTON M.D. Electronically Signed Out By NATHEN NEWTON MD/[facility] Microscopic Description: Microscopic analysis shows a papillomatous proliferation of bland keratinocytes with hyperkeratosis, acanthosis and pseudohorn cysts. Inflammatory cells are present in the dermis and infiltrate the keratosis. Clinical History: PInk exophytic verrucous papule. Acrochordon vs. VV vs. SCCIS. Shave Biopsy. ([facility]) Specimens Submitted As: A: SKIN, CENTRAL NECK Gross Description: Received in formalin is a ryan-brown piece of skin measuring [id number]. The specimen is inked and embedded in toto. ink/02/05/2018 Performed By: #### D #### Dermatopathology CARDIOLOGY VISIT Observed: 01/21/2018 Status: F Source: [facility] REPORT 2:31 PM [facility] REPOSITORY [facility] [address] [place] [address] OFFICE VISIT Date of Service: 01/21/18 MR#: [id number] Acct: [id number] Name: KALINA DE LA CRUZ Rep #: [id number] : 1940 Provider: Prakash Cordova MD Age/Sex: 77/F Location: [facility] Status: Signed HPI HPI Chief Complaint: Routine f/u Details: CHF, needs local card.: Chief Complaint: Afib.CHF; establishment of care Details: KALINA DE LA CRUZ, is a 77 nondiabetic f who is a former patient of Dr. Caceres and Dr. Clements, referred for establishment of care. She has a history of hypertension, diastolic dysfunction, hypertension, nondiabetic, lifelong non-smoker, who apparently has chronic O2 requirements for unknown reasons, previously seen Dr. Daley. She has never had a catheterization. She is a lifelong non-smoker. In addition she has hyperlipidemia, atrial fibrillation on chronic flecainide and Eliquis therapy, last EKG dated 07/19/17 showed normal sinus rhythm with right bundle branch block, previous to that her last atrial fibrillation EKG documented was April 28, 2017. She reports that she had a CVA in July 2016, affecting her speech and some lower extremity movement, which has completely resolved. She is unclear whether she was diagnosed with atrial fibrillation at that time. Apparently she has a history of reactive airway disease and was taken off beta-kaila therapy and allegedly substituted for Cardizem therapy. She was also diagnosed with obstructive sleep apnea, and tried CPAP for 3 months but was unable to tolerated. She apparently underwent a recent non-walking nuclear stress test in January 2017 which was a non-walking nuclear stress test and which was negative for inducible ischemia. Her most recent echocardiogram dated 11/12/16 showed an EF of 65%, normal RV function, unable to estimate RVSP. Most recent carotid ultrasound dated 02/07/17 showed minimal bilateral disease. She is on chronic O2 therapy, although her PCP apparently orders it. Apparently she was to undergo a DC cardioversion in July 2017 however she had spontaneously converted. He reports that approximately 2 months ago she was restarted on her atenolol, but I am uncertain whether she is taking both atenolol and Cardizem. The patient claims that she is not taking Cardizem but she is not sure. In addition approximately 3 weeks ago her atenolol was increased from 25 twice daily to 50 twice daily and since that time the patient has had progressively worsening dyspnea on exertion, shortness of breath and bradycardia. When the patient was shown a picture of the Cardizem pill, she claims that she is taking that as well twice a day. Recently in Dr. Mcpherson's office on 01/17/18 EKG was performed which showed normal sinus rhythm with first-degree AV block and right bundle branch block. In our office today her blood pressure is 112/60, pulse of 50 and regular. Her physical exam is as below. Her lipids as of 01/24/17 show an HDL of 49 and an LDL of 71. Her echocardiogram dated 11/12/16 showed EF of 60%, mild left atrial enlargement. Intake Vital Signs01/21/18 Height 5 ft 01/21/18 Weight: 183 lb Intake Visit Reasons: per PCP, sob Allergies adhesive Allergy (Verified 09/27/17 09:19) Rash irbesartan Allergy (Verified 09/27/17 09:19) Unknown solifenacin [From Vesicare] Allergy (Verified 09/27/17 09:19) Unknown sulindac [Sulindac] Allergy (Verified 09/27/17 09:19) Unknown atorvastatin [From Lipitor] Adverse Reaction (Verified 09/27/17 09:19) Unknown lisinopril Adverse Reaction (Verified 09/27/17 09:19) Other losartan potassium [From Cozaar] Adverse Reaction (Verified 09/27/17 09:19) Other ramipril [From Altace] Adverse Reaction (Verified 09/27/17 09:19) Other tramadol Adverse Reaction (Verified 09/27/17 09:19) Unknown Medications Apixaban [Eliquis] 5 mg PO BID 04/17/17 [History Confirmed 01/21/18] Aspirin [Aspirin, Baby] 81 mg PO DAILY@0800 04/17/17 [History Confirmed 01/21/18] Atorvastatin Calcium [Lipitor] 10 mg PO QHS 04/17/17 [History Confirmed 01/21/18] Clobetasol Propionate [Temovate Cream (BKC)] 1 applic TOPICAL BID 04/17/17 [History Confirmed 01/21/18] Fluticasone 0.05% [Flonase Nasal [place]] 1 spray NASAL DAILY 04/17/17 [History Confirmed 01/21/18] Polyethylene Glycol 3350 [Miralax] 17 gm PO DAILY 04/17/17 [History Confirmed 01/21/18] Sertraline HCl [Zoloft] 50 mg PO DAILY 04/17/17 [History Confirmed 01/21/18] albuterol sulfate HFA 90 mcg/actuation aerosol inhaler 2 puff INHALATION Q4H PRN g 09/27/17 [History Confirmed 01/21/18] furosemide 20 mg tablet 20 mg PO QDAY 09/27/17 [History Confirmed 01/21/18] hydrocortisone 2.5 % topical cream 1 applic TOPICAL BID-QID PRN 09/27/17 [History Confirmed 01/21/18] ketoconazole 2 % topical cream 1 applic TOPICAL .COMPLEX 09/27/17 [History Confirmed 01/21/18] levothyroxine 100 mcg tablet 100 mcg PO .COMPLEX 09/27/17 [History Confirmed 01/21/18] nystatin 100,000 unit/gram topical powder 1 applic TOPICAL .COMPLEX 09/27/17 [History Confirmed 01/21/18] potassium chloride ER 10 mEq tablet,extended release 10 meq PO QDAY 09/27/17 [History Confirmed 01/21/18] flecainide 50 mg tablet 50 mg PO Q12H 10/01/17 [History Confirmed 01/21/18] amlodipine 5 mg tablet 5 mg PO QDAY 01/21/18 [History Confirmed 01/21/18] atenolol 50 mg tablet 25 mg PO BID tab 01/21/18 [History Confirmed 01/21/18] PFSH Medical History Paroxysmal atrial fibrillation (Chronic) Diastolic CHF, acute (Chronic) Dyspnea on exertion (Chronic) Hyperlipemia (Chronic) Hyperparathyroidism (Chronic) Hypothyroidism (Chronic) Lymphomatoid papulosis (Chronic) Hypertension (Chronic) Obesity (Chronic) Right bundle branch block (Chronic) AV block, 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) GERD (gastroesophageal reflux disease) (Chronic) Anxiety and depression (Chronic) Thoracic aortic aneurysm (Chronic) History of CVA (cerebrovascular accident) (Chronic) Carotid stenosis (Chronic) Chronic diastolic heart failure (Chronic) Chronic kidney disease (Chronic) Dementia (Chronic) History of incisional hernia repair (Chronic) Meningioma (Chronic) Obstructive sleep apnea (Chronic) Osteoarthritis (Chronic) Surgical History History of esophageal dilatation (Chronic) 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) Hx of cholecystectomy (Chronic) Family History Father CVA (cerebral vascular accident) Social History Smoking Status: Never smoker ROS Const Const: Positive for weakness and fatigue; negative for headache(s) Eyes Eyes: Negative for loss of peripheral vision, transient loss of vision or blurry vision ENT ENT: Negative for headache(s), dizziness, Nosebleed/epistaxis or balance problems Cardio Chest Pain: No Palpitations: Yes (occasional fluttering) Edema: None Muscle aches with walking: None Resp Respiratory: Positive for SOB with activity (SOB with little activity); negative for SOB at rest, SOB orthopnea\SOB lying down or paroxysmal nocturnal dyspnea Additional Details: continuous O2 at 2L GI GI: Negative nausea or heartburn : Negative for hematuria Musc Musc: Negative for muscle aches/ myalgia, muscle weakness, joint pain or balance problems Skin Skin: Negative non-healing lesions, unusual bruising or rash Neuro Neuro: Positive for weakness; negative for blurry vision, headache(s) or dizziness Wood Hematologic/Lymphatic: Negative for easy bruising Endo Endo: Positive for fatigue Psych Psych: Negative for anxiety or depression Allergy Allergy/Immunology: Negative for hives, Negative for rash Cardiology Exam Const Appearance: cooperative, healthy appearing and no acute distress Nutritional Appearance: well nourished Orientation: alert, oriented x3 and oriented to person Head Head: normal to inspection, atraumatic and normocephalic Nose: external nose normal Face and Sinus: face symmetric Mouth: oral mucosae normal Eyes General: appearance normal, both eyes and all related structures Eyelids: eyelids normal Conjunctivae: conjunctivae normal Pupils: PERRL and normal by confrontation EOM: EOM intact bilaterally Neck Neck: normal visual inspection and full ROM Carotids: normal carotid upstroke Chest Chest inspection: normal inspection of the chest Auscultation: Bilateral: Clear to Auscultation Cardio Palpation: normal PMI Rate: regular rate Rhythm: regular rhythm Heart sounds: S1 normal and S2 normal GI GI: normal to inspection, no hepatosplenomegaly and bowel sounds present Neuro General: alert, oriented x3, awake, CN's II-XI intact bilaterally and moves all extremities Skin Skin: no rashes or lesions noted Extremities Pulses: Normal: Right Femoral Pulse, Left Femoral Pulse, Right Dorsalis Pedis Pulse, Left Dorsalis Pedis Pulse, Right Posterior Tibial Pulse, Left Posterior Tibial Pulse, Right Radial Pulse, Left Radial Pulse Lower Extremity Edema: None: Bilateral Psych Psychological: normal affect Assessment AND Plan 1. Bradycardia R00.1 Plan 1. Bradycardia: The patient may have inadvertently doubled up on both Cardizem as well as atenolol at home. She seems somewhat confused about her medications, not surprisingly given the complexity of her illness and multiple doctors. I believe the patient requires a medicine audit and when she gets home she is going to line up her medicines and call our office regarding what she is on right now. My suggestion at this point assuming she is not on Cardizem is to reduce her atenolol from 50 twice daily to 25 twice daily and return in 2 weeks time for a blood pressure check. If the patient is on Cardizem, I would recommend discontinuation of her atenolol and replacing it with another antihypertensive medication that will not cause bronchospasm. This could be in the form of Imdur 30 mg p.o. daily. Orders Orders: 2. Hyperlipemia E78.5 Plan 2. Hyperlipidemia: We will repeat a lipid profile. 3. Paroxysmal atrial fibrillation I48.0 Plan 3. Paroxysmal atrial fibrillation: The patient is in normal sinus rhythm by EKG on 01/17/18 as well as clinically today. Ideally she should be on beta-blockers however this may be affecting her pulmonary health. I recommended that she undergo a dobutamine echocardiogram to evaluate for possible ischemia as well as to maintain her flecainide therapy. In addition I recommend that she be referred to Dr. Pablo Jang specifically to evaluate her pulmonary status to determine why it is she requires chronic O2 therapy. She does not wish to go back to Dr. Daley or Dr. Hicks. We will order pulmonary function test to determine if she has intrinsic pulmonary disease. 4. Return office in 6 months. This note was generated using a voice recognition system and there may be incorrect words, spelling or punctuation that were not noted when reviewing the office note prior to saving. Plan Detail Other Orders Orders: Other Medications New: Discontinued: Follow Up +6M (Art) +2 weeks (BP Check) Coding Level of Care Code Off vis,est,level 3 Diagnoses Bradycardia R00.1 Hyperlipemia E78.5 Paroxysmal atrial fibrillation I48.0 Coding Level of Care Code Off vis,est,level 3 Diagnoses Bradycardia R00.1 Hyperlipemia E78.5 Paroxysmal atrial fibrillation I48.0 01/21/18 1431 <Electronically signed by Prakash Cordova MD> Date Prakash Cordova MD [facility] Signature: Date (if applicable) CC: Wu Elena MD CNPN Observed: 01/21/2018 Status: COMPLETED Source: JAMIE 12:00 AM [facility] Quietly Telephone (FAMPWS) DE LA CRUZKALINA ([id number]) 1940 F Date Time Provider Department 01/21/18 WU ELENA During your visit today, we recorded the following information about you: Lora Nina RN, RN 01/21/2018 4:33 PM Signed Pt calls to report she saw Dr. Cordova today who scheduled her for a nuclear stress test and echo at the end of February. Pt states her Atenolol was decreased to 25mg (from 50mg) and Cardizem was d/c. Pt aware PCP is out of office this week. Pt wanted to provide an update. Sylvie Garcia LPN 01/21/2018 5:[address] Cordova office sent note to office for update also. Allergies As of Date: 01/21/2018 Noted Allergy Reaction ADHESIVE TAPE (ROSINS) 02/21/2011 14 - Other: See Comments Comments: skin thinning, peels ALTACE (RAMIPRIL) 04/01/2006 3 - Cough Comments: see note 04/01/06 COZAAR (LOSARTAN POTASSIUM) 05/06/2006 3 - Cough Comments: sx began shortly after stopping BRII-I 04/14 IRBESARTAN 04/16/2013 14 - Other: See Comments Comments: headache, dizziness LIPITOR (ATORVASTATIN CALCIUM) 03/28/2009 Comments: Elevated CK. LISINOPRIL 11/29/2005 3 - Cough Comments: see note 05/12/03 SULINDAC 11/09/2009 8 - GI Upset TRAMADOL 07/04/2011 2 - Rash VESICARE (SOLIFENACIN SUCCINATE) 10/05/2010 5 - Intolerance Comments: Patient had constipation; dry mouth; nausea Date Reviewed: 12/04/2017 Reviewed by: Katty Morales Ma - Fully Assessed Reason for Visit: Pt Update [Other] Visit Diagnoses:Paroxysmal atrial fibrillation (HCC) [I48.0] Essential hypertension, benign [I10] Order(s):atenolol (TENORMIN) 50 mg tabletTake 0.5 tablets by mouth twice daily.Disp: 60 tabletRfl: 5 Prescriptions as of 01/21/2018 Sig: ATENOLOL 50 MG TABLET Take 0.5 tablets by mouth twi* AMLODIPINE 5 MG TABLET Take 1 tablet by mouth once d* NYSTATIN 100,000 UNIT/GRAM TO* Apply 1 application to affect* FLECAINIDE 50 MG TABLET Take 1 tablet by mouth twice * SERTRALINE 50 MG TABLET Take 1 tablet by mouth once d* KETOCONAZOLE 2 % TOPICAL CREAM Apply to affected area sparin* HYDROCORTISONE 2.5 % TOPICAL * Apply 1 application to affect* FLUTICASONE 50 MCG/ACTUATION * Use 1 [place] in each nostril d* CLOBETASOL 0.05 % TOPICAL OIN* Apply 1 application to affect* ELIQUIS 5 MG TABLET TAKE 1 TABLET TWICE DAILY FACIAL MASK To use with Oxygen. Hypoxi* POTASSIUM CHLORIDE ER 10 MEQ * Take 1 tablet by mouth once d* ATORVASTATIN 10 MG TABLET Take 1 tablet by mouth daily * LEVOTHYROXINE 100 MCG TABLET Take 1 tablet by mouth once d* FUROSEMIDE 20 MG TABLET Take 1 tablet by mouth once d* POLYETHYLENE GLYCOL 3350 17 G* One capful with 8 oz of water* PANTOPRAZOLE 40 MG TABLET,DEL* Take 1 tablet by mouth once d* ALBUTEROL SULFATE HFA 90 MCG/* Inhale 2 Puffs as instructed * ASPIRIN 81 MG TABLET,DELAYED * Take 81 mg by mouth once shital* Problem List As Of Date 01/21/2018 Noted Resolved BENIGN HYPERTENSION [I10] INVALID FOR* Hypothyroidism [E03.9] INVALID FOR* More... OBESITY NOS [E66.9] INVALID FOR* Major depressive disorder, recurrent episode, u*INVALID FOR*08/30/2014 GENERAL OSTEOARTHROSIS [M15.9] INVALID FOR*01/12/2008 Hyperlipidemia [E78.5] INVALID FOR* CHOLECYSTITIS SEE ALSO GALLBLADDER ACUTE WITH*INVALID FOR*09/20/2008 CHRONIC KIDNEY DISEASE, STAGE I [N18.1] INVALID FOR*09/20/2008 Osteoarthritis [M19.90] INVALID FOR* CHRONIC KIDNEY DISEASE, STAGE III (MOD) [N18.3] INVALID FOR* More... 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 Bilateral carotid artery stenosis [I65.23] INVALID FOR* More... Shortness of breath [R06.02] INVALID FOR*01/25/2017 More... RODOLFO (obstructive sleep apnea) [G47.33] INVALID FOR* Meningioma (HCC) [D32.9] More... Memory loss [R41.3] INVALID FOR* More... Atrial fibrillation (HCC) [I48.91] INVALID FOR* More... Thoracic aortic aneurysm without rupture (HCC) *INVALID FOR* More... Hypercalcemia [E83.52] INVALID FOR* Chronic anticoagulation [Z79.01] INVALID FOR* Left renal mass [N28.89] INVALID FOR* More... Prescriptions ordered this encounter Disp Refills Start End ATENOLOL 50 MG TABLET 60 t* 5 01/21/2018 Class: Med Update Route: ORAL Sig: Take 0.5 tablets by mouth twice daily. Cosign required by WU ELENA[[id number]] Medications Discontinued During This Encounter atenolol (TENORMIN) 50 mg tablet 60 t* 5 12/13/2017 01/21/2018 Route: ORAL Sig: Take 1 tablet by mouth twice daily. Disc: Reason for discontinue is not on file. Encounter Status:Closed by SYLVIE GARCIA LPN on 01/21/18 CHEST PA AND LATERAL Observed: 01/17/2018 Status: F Source: YOLANDA 10:07 AM [facility] REPOSITORY Imaging Services [address] [place] [address] Chest PA and Lateral MR#: [id number] Acct: [id number] Name: KALINA DE LA CRUZ Rep #: [id number] : 1940 F 77 From: Cb Ng MD PCP: Wu Elena MD Status: REG CLI Study: Chest PA and Lateral Date of Exam: 01/17/18 Exam# [id number] Ordering Dr: Wu Elena MD STUDY: X-RAY CHEST REASON FOR EXAM: Female, 77 years old. SOB / SOA TECHNIQUE: Frontal and lateral views of the chest. COMPARISON: 8.9 FINDINGS: Chronic appearing increased interstitial lung markings. There is an elevated right hemidiaphragm. Scoliosis of the thoracic spine. There is no demonstrated pleural abnormality. Enlarged heart size. Normal mediastinum and awais. Normal visualized pulmonary arteries. There is atherosclerotic calcification of the aortic arch with tortuosity. There are diffuse degenerative changes of the visualized thoracic spine. There is degenerative osteoarthritis of the bilateral shoulders. There is no demonstrated abnormality of the visualized soft tissue structures of the upper abdomen. RAD/Chest PA and Lateral IMPRESSION: There are no acute findings. Electronically Signed: Cb Ng MD at 17:02 EDT , Service support , CC: Wu Elena MD Database Programmer: Signed CBC AND DIFFERENTIAL Collected: 01/17/2018 Status: F Source: MAG[place]OL[place] 9:35 AM [facility] REPOS[facility] TYPE CODE TESTS RESULT OUT OF REFERENCE UNITS RANGE LAB WBC 3.70-11.00 k/uL WBC 10.13 LAB RBC 3.90-5.20 m/uL RBC 4.20 LAB HGB 11.5-15.5 g/dL Hemoglobin 13.0 LAB HCT 36.0-46.0 % Hematocrit 41.1 LAB MCV 80.0-100.0 fL MCV 97.9 LAB MCH 26.0-34.0 pG MCH 31.0 LAB MCHC 30.5-36.0 g/dL MCHC 31.6 LAB RDWCV 11.5-15.0 % RDW-CV 14.0 LAB PLTCT 150-400 k/uL Platelet Count 249 LAB MPV 9.0-12.7 fL MPV 12.7 LAB ANEUT % Neut% 69.6 LAB AANEUT 1.45-7.50 k/uL Abs Neut 7.06 LAB ALYMP % Lymph% 17.4 LAB AALYMP 1.00-4.00 k/uL Abs Lymph 1.76 LAB AMONO % Placer% 9.5 LAB AAMONO <0.87 k/uL Abs Placer High 0.96 LAB AEOS % Eosin% 2.9 LAB AAEOS <0.46 k/uL Abs Eosin 0.29 LAB ABASO % Baso% 0.6 LAB AABASO <0.11 k/uL Abs Baso 0.06 LAB AUNRBC 0 /100 WBC NRBCs 0.0 LAB ABNRBC <0.01 k/uL Absolute nRBC <0.01 LAB DTYP DTYPE Auto Diff Performed By: #### CBCDIF, CMP, LIPNF, NTBNP, TSH #### [facility] [address] [place], [place] [address] COMP METABOLIC PANEL Collected: 01/17/2018 Status: F Source: [place] 9:35 AM [facility] REPOSITORY TYPE CODE TESTS RESULT OUT OF REFERENCE UNITS RANGE LAB TP 6.3-8.0 g/dL Protein, Total 7.2 LAB ALB 3.9-4.9 g/dL Albumin 4.2 LAB CA 8.5-10.2 mg/dL Calcium, High Total 11.0 LAB TBIL 0.2-1.3 mg/dL Bilirubin, Total 0.4 LAB ALKP 32-117 U/L Alkaline Phosphatase 100 LAB AST 13-35 U/L AST 23 LAB GLU 74-99 mg/dL Glucose 87 Result Comment: The [place] Diabetes Association (ADA) provides guidance for cutoff values for fasting glucose and random glucose. The ADA defines fasting as no caloric intake for at least 8 hours. Fas ting plasma glucose results between 100 to 125 mg/dL indicate increased risk for diabetes (prediabetes). Fasting plasma glucose results greater than or equal to 126 mg/dL meet the criteria for diagnosis of diabetes. In the absence of unequivocal hyperglycemia, results should be confirmed by repeat testing. In a patient with classic symptoms of hyperglycemia or hyperglycemic crisis, random plasma glucose results greater than or equal to 200 mg/dL meet the criteria for diagnosis of diabetes. Reference: Standards of Medical Care in Diabetes 2016, [place] Diabetes Association. Diabetes Care. 2016.39(Suppl 1). LAB BUN 7-21 mg/dL BUN 19 LAB CRET 0.58-0.96 mg/dL Creatinine High 1.14 LAB NA 136-144 mmol/L Sodium 142 LAB K 3.7-5.1 mmol/L Potassium 4.4 LAB CL 97-105 mmol/L Chloride 100 LAB CO2 22-30 mmol/L CO2 27 LAB AGAP 9-18 mmol/L Anion Gap 15 LAB ALT 7-38 U/L ALT 9 LAB GFRAA eGFR- Amer. 56 LAB GFRNAA . eGFR-All Other Races 46 Result Comment: eGFR (Estimated GFR) Units of measure: mL/min/1.73 meters squared eGFR is derived from the reexpressed MDRD Study equation using the following parameters: serum creatinine, age, gender and race. The creatinine assay has been calibrated to be traceable to IDMS. An eGFR <60 mL/min/1.73m2 for >3 months is consistent with chronic kidney disease. Refer to KDOQI guidelines for clinical interpretation. In patients with unstable renal function, e.g. those with acute kidney injury, the eGFR may not accurately reflect actual GFR. Performed By: #### CBCDIF, CMP, LIPNF, NTBNP, TSH #### [facility] [address] [place] [address] LIPID PANEL, NONFAST Collected: 01/17/2018 Status: F Source: [place] 9:35 AM [facility] REPOSITORY TYPE CODE TESTS RESULT OUT OF REFERENCE UNITS RANGE LAB CHOLNF <200 mg/dL Total Cholesterol NF 182 Result Comment: <200 mg/dL, Desirable 200-239 mg/dL, Borderline high >239 mg/dL, High LAB TRIGNF <150 mg/dL Triglycerides, NF 132 Result Comment: <150 mg/dL, Normal 150-199 mg/dL, Borderline high 200-499 mg/dL, High >499 mg/dL, Very high LAB HDLNF >39 mg/dL HDL Cholesterol, NF 57 Result Comment: 40-59 mg/dL, Acceptable >59 mg/dL, High: Negative risk factor for coronary heart disease <40 mg/dL, Low: Positive risk factor for coronary heart disease LAB LDLNF <100 mg/dL LDL Cholesterol, NF 99 Result Comment: <100 mg/dL, Optimal 100-129 mg/dL, Near optimal/above optimal 130-159 mg/dL, Borderline high 160-189 mg/dL, High >189 mg/dL, Very high Secondary prevention optimal LDL Cholesterol levels are recommended to be < 70 mg/dL LAB NOHDLN <130 mg/dL Non HDL Chol, 125 NF Result Comment: <130 mg/dL, Optimal 130-159 mg/dL, Near optimal/above optimal 160-189 mg/dL, Borderline high 190-219 mg/dL, High >219 mg/dL, Very high Secondary prevention optimal non HDL Cholesterol levels are recommended to be < 100 mg/dL LAB VLDLNF <30 mg/dL VLDL Cholesterol, NF 26 LAB TCHDLN <5.10 mg/dL T Chol/HDL Ratio NF 3.19 LAB LDLHDN <2.54 mg/dL LDL/HDL Ratio, NF 1.74 Result Comment: Reference: 1. National Cholesterol Education Program ATP III Guideline At-A-Glance Quick Desk Reference: National Heart, Lung, and Blood [place]. National Institutes of Health. 2001: NIH Publication No. 01-3305. 2. An International Atherosclerosis Society position paper: global recommendations for the management of dyslipidemia: executive summary, Atherosclerosis. 2014: 232(2):410-413. Performed By: #### CBCDIF, CMP, LIPNF, NTBNP, TSH #### [facility] [address] [address] NT PRO BNP Collected: 01/17/2018 Status: F Source: MAG[place] 9:35 AM [facility] REPOSITORY TYPE CODE TESTS RESULT OUT OF REFERENCE UNITS RANGE LAB PBNP <450 pg/mL PRO B Natr 290 Peptide Performed By: #### CBCDIF, CMP, LIPNF, NTBNP, TSH #### [facility] [address] [place], [place] [address] TSH Collected: 01/17/2018 Status: F Source: MAG[place] 9:35 AM [facility] REPOSITORY TYPE CODE TESTS RESULT OUT OF RANGE REFERENCE UNITS LAB TSH 0.400-5.500 uU/mL TSH 2.510 Performed By: #### CBCDIF, CMP, LIPNF, NTBNP, TSH #### [facility] [address] [place], [place] [address] PROGRESS Observed: 01/17/2018 Status: COMPLETED Source: MAGNOLIA 8:31 AM [facility] REPOSITORY O ID: [id number] Author: Wu Elena Service: (none) Author Type: Physician Type: Progress Notes Filed: 01/17/2018 9:11 AM Note Text: Patient presents with: Hypertension Bradycardia HPI: Patient presents today for office visit for follow up. Nursing Notes: Katty Morales Ma 01/17/2018 8:27 AM Signed CARDIO: Pt received call from Dr. David's office yesterday. Fax came in from her [employer]. Dr David feels her pulse is too low and his blood pressure was too high. She was told to stop her Diltiazem and start Amlodipine 5 mg. Pt states that she has been short of breath for the last week. She still has a cough. She has several pulse rates dipping into the 40's. bp is good, however, her pulse rate is 49 today. She is actually seeing Dr. Cordova now. Will forward the [employer] notes to him. I will see if there is a way we can notify them to have them routed to the correct specialist. I do agree that we need to try and see if we can get her heart rate up. Her bp has overall not been bad recently as well. Usually in the 130's. She did have one recent systolic bp of 99. No chest pain, new palpitations. No new dizziness. No syncope. Having some shortness of breath for two weeks since sick. Still coughing some. Has a mild cough is occasionally productive and is white. No fever. No increased swelling. Usually resolves with rest. She wonders if some of it is anxiety related. MEDICATIONS: Current Outpatient Prescriptions: nystatin (MYCOSTATIN) powder Apply 1 application to affected area four times daily. flecainide (TAMBOCOR) 50 mg tablet Take 1 tablet by mouth twice daily. sertraline (ZOLOFT) 50 mg tablet Take 1 tablet by mouth once daily. ketoconazole (NIZORAL) 2 % cream Apply to affected area sparingly twice daily for fungal rash hydrocortisone 2.5 % cream Apply 1 application to affected area twice daily. Location: under breasts and groin area fluticasone (FLONASE) 50 mcg/actuation nasal spray Use 1 [place] in each nostril daily at bedtime. before lying down. clobetasol (TEMOVATE) 0.05 % ointment Apply 1 application to affected area twice daily. apply as directed ELIQUIS 5 mg tab tab(s) TAKE 1 TABLET TWICE DAILY Facial Mask misc To use with Oxygen.Hypoxia, rhinitis potassium chloride (KLOR-CON 10) 10 mEq tablet Take 1 tablet by mouth once daily. atorvastatin (LIPITOR) 10 mg tablet Take 1 tablet by mouth daily at bedtime. For cholesterol. levothyroxine (SYNTHROID) 100 mcg tablet Take 1 tablet by mouth once daily. Does not take on Saturday furosemide (LASIX) 20 mg tablet Take 1 tablet by mouth once daily. polyethylene glycol 3350 (MIRALAX) 17 gram/dose powder One capful with 8 oz of water each day pantoprazole DR (PROTONIX) 40 mg tablet Take 1 tablet by mouth once daily. albuterol HFA (PROAIR HFA) 90 mcg/actuation inhaler Inhale 2 Puffs as instructed every 4 hours as needed for Wheezing/Shortness of Breath. aspirin, enteric coated (ASPIRIN, ENTERIC COATED) 81 mg EC tablet Take 81 mg by mouth once daily. amLODIPine (NORVASC) 5 mg tablet Take 1 tablet by mouth once daily. atenolol (TENORMIN) 50 mg tablet Take 1 tablet by mouth twice daily. No current facility-administered medications for this visit. ALLERGIES: ALLERGIES Allergen Reactions - Adhesive Tape (Lora* Other: See Comments skin thinning, peels - Altace [Ramipril] Cough see note 04/01/06 - Cozaar [Losartan Po* Cough sx began shortly after stopping BRII-I 04/14 - Irbesartan Other: See Comments headache, dizziness - Lipitor [Atorvastat* Elevated CK. - Lisinopril Cough see note 05/12/03 - Sulindac GI Upset - Tramadol Rash - Vesicare [Solifenac* Intolerance Patient had constipation; dry mouth; nausea PAST MEDICAL HISTORY Diagnosis Date - Adjustment disorder with depressed mood - Benign neoplasm of colon - Carotid stenosis recheck in 03/24 - Chronic kidney disease, stage III (moderate) - CVA (cerebral vascular accident) (HCC) - Dementia - Diverticulosis of colon (without mention of hemorrhage) - Essential hypertension, benign - Generalized osteoarthrosis, unspecified site - Gout - Headache(784.0) - Hyperparathyroidism (HCC) 2013 - Lymphomatoid papulosis (HCC) - Meningioma (HCC) - Obesity, unspecified - Other and unspecified hyperlipidemia - Unspecified hypothyroidism PAST SURGICAL HISTORY Procedure Laterality Date - COLONOSCOP W/ OR W/O BRS SPEC 02/08/99 Colonoscopy - COLONOSCOP W/ OR W/O BRSH SPEC 07/12/2008 Colonoscopy - EGD 01/18/2017 - EGD W/O OR W/BRUSH/WASH 11/04/2012 EGD - EGD W/O OR W/BRUSH/WASH 01/18/2017 - INSER NON-TUNNEL CVC >= 5 YR 06/19/07 - LAP CHOLECYSTECT/CHOLANGIOGRAPHY 06/19/07 - LAPAROSCOPY, SURGICAL, APPENDECTOMY 06/19/07 - REPAIR INCIS HERNIA W MESH 11-18-12 - REPAIR INCISIONAL HERNIA,MATILDE 11-18-12 - TOTAL HIP REPLACEMENT Hip replacement, total, right - TOTAL KNEE REPLACEMENT Knee replacement, total, left and right - TOTAL KNEE REPLACEMENT 2013 Right FAMILY HISTORY Problem Relation Age of Onset - tia [OTHER] Father - chf [OTHER] Mother - mi [OTHER] Maternal Grandfather - chf [OTHER] Maternal Grandmother - nonhodgkins lymphoma [OTHER] Daughter - Prostate Cancer Brother Social History Marital status: Spouse name: Mitra Years of education: Number of children: 3 Occupational History Occupation Employer Comment [employer]* Social History Main Topics Smoking status: Never Smoker Smokeless tobacco: Never Used Alcohol use: Yes Comment: socially Drug use: No Reviewed current medications, allergies, past medical history, surgical history, family history and social history today. REVIEW OF SYSTEMS All other reviewed and negative other than HPI. HEALTH MAINTENANCE: Reviewed health maintenance issues today and recommended the following in detail. VITALS: BP 132/60 Pulse (!) 49 Wt 81.9 kg (180 lb 9.6 oz) SpO2 98% BMI 35.27 kg/m? Last 4 Encounter Wt Readings: Date: Wt: 01/17/2018 81.9 kg (180 lb 9.6 oz) 10/03/2017 83.5 kg (184 lb) 04/18/2017 85.7 kg (189 lb) 04/11/2017 88 kg (194 lb) PHYSICAL EXAMINATION: General appearance: Well appearing, alert, in no acute distress, well-hydrated, well nourished. Skin: Skin color, texture, turgor normal, no suspicious rashes or lesions Head: Normocephalic, no masses, lesions, tenderness or abnormalities Neck: supple, no lymphadenopathy. Lungs: Lungs clear to auscultation. No wheezing, rhonchi, rales Heart: RRR without murmur, gallop, or rubs. No ectopy Abdomen: Normal abdominal exam, Abdomen soft, non-tender. Bowel sounds normal. No masses, organomegaly Extremities: No deformities, edema, skin discoloration, clubbing or cyanosis. Good capillary refill. ASSESSMENT/PLAN: 1. Bradycardia - ICD9: 427.89, ICD10: R00.1 (primary diagnosis) - stop diltiazem and start amlodipine. - check labs. Call with bp and pulses in one week. -RTO in one month - will send info to Dr. Cordova and see if we can get [employer] to send the info to them - ECG COMPLETE W INTERPRETATION-appears to be unchanged. 2. Paroxysmal atrial fibrillation (HCC) - ICD9: 427.31, ICD10: I48.0 - -continue meds. Follow vitals. - XR CHEST 2V FRONTAL/LAT 3. Chronic anticoagulation - ICD9: V58.61, ICD10: Z79.01 - stable. 4. SOB (shortness of breath) - ICD9: 786.05, ICD10: R06.02 - will have her follow with cardiology. Check labs and chest xray - CBC + DIFF - COMP METABOLIC PANEL - NT PRO BNP - XR CHEST 2V FRONTAL/LAT - ECG COMPLETE W INTERPRETATION 5. Hypothyroidism, unspecified type - ICD9: 244.9, ICD10: E03.9 - TSH BLD - LIPID PANEL, NONFASTING 6. Essential hypertension, benign - ICD9: 401.1, ICD10: I10 - Bp is actually better controlled currently. Will follow with med change. Wu Elena MD RTO in one month and prn. CNOV Observed: 01/17/2018 Status: COMPLETED Source: [place] 8:20 AM [facility] REPOSITORY Office Visit (FAMPWS) KALINA DE LA CRUZ ([id number]) 1940 F Date Time Provider Department 01/17/18 8:20 AM WU ELENAWS During your visit today, we recorded the following information about you: Pulse Blood pressure Weight 49/minute 132/60 81.9 kg Katty Morales Ma 01/17/2018 8:27 AM Signed CARDIO: Pt received call from Dr. David's office yesterday. Fax came in from her [employer]. Dr David feels her pulse is too low and his blood pressure was too high. She was told to stop her Diltiazem and start Amlodipine 5 mg. Pt states that she has been short of breath for the last week. She still has a cough. Wu Elena 01/17/2018 9:11 AM Signed Patient presents with: Hypertension Bradycardia HPI: Patient presents today for office visit for follow up. Nursing Notes: Katty Morales Ma 01/17/2018 8:27 AM Signed CARDIO: Pt received call from Dr. David's office yesterday. Fax came in from her [employer]. Dr David feels her pulse is too low and his blood pressure was too high. She was told to stop her Diltiazem and start Amlodipine 5 mg. Pt states that she has been short of breath for the last week. She still has a cough. She has several pulse rates dipping into the 40's. bp is good, however, her pulse rate is 49 today. She is actually seeing Dr. Cordova now. Will forward the [employer] notes to him. I will see if there is a way we can notify them to have them routed to the correct specialist. I do agree that we need to try and see if we can get her heart rate up. Her bp has overall not been bad recently as well. Usually in the 130's. She did have one recent systolic bp of 99. No chest pain, new palpitations. No new dizziness. No syncope. Having some shortness of breath for two weeks since sick. Still coughing some. Has a mild cough is occasionally productive and is white. No fever. No increased swelling. Usually resolves with rest. She wonders if some of it is anxiety related. MEDICATIONS: Current Outpatient Prescriptions: nystatin (MYCOSTATIN) powder Apply 1 application to affected area four times daily. flecainide (TAMBOCOR) 50 mg tablet Take 1 tablet by mouth twice daily. sertraline (ZOLOFT) 50 mg tablet Take 1 tablet by mouth once daily. ketoconazole (NIZORAL) 2 % cream Apply to affected area sparingly twice daily for fungal rash hydrocortisone 2.5 % cream Apply 1 application to affected area twice daily. Location: under breasts and groin area fluticasone (FLONASE) 50 mcg/actuation nasal spray Use 1 [place] in each nostril daily at bedtime. before lying down. clobetasol (TEMOVATE) 0.05 % ointment Apply 1 application to affected area twice daily. apply as directed ELIQUIS 5 mg tab tab(s) TAKE 1 TABLET TWICE DAILY Facial Mask misc To use with Oxygen.Hypoxia, rhinitis potassium chloride (KLOR-CON 10) 10 mEq tablet Take 1 tablet by mouth once daily. atorvastatin (LIPITOR) 10 mg tablet Take 1 tablet by mouth daily at bedtime. For cholesterol. levothyroxine (SYNTHROID) 100 mcg tablet Take 1 tablet by mouth once daily. Does not take on Saturday furosemide (LASIX) 20 mg tablet Take 1 tablet by mouth once daily. polyethylene glycol 3350 (MIRALAX) 17 gram/dose powder One capful with 8 oz of water each day pantoprazole DR (PROTONIX) 40 mg tablet Take 1 tablet by mouth once daily. albuterol HFA (PROAIR HFA) 90 mcg/actuation inhaler Inhale 2 Puffs as instructed every 4 hours as needed for Wheezing/Shortness of Breath. aspirin, enteric coated (ASPIRIN, ENTERIC COATED) 81 mg EC tablet Take 81 mg by mouth once daily. amLODIPine (NORVASC) 5 mg tablet Take 1 tablet by mouth once daily. atenolol (TENORMIN) 50 mg tablet Take 1 tablet by mouth twice daily. No current facility-administered medications for this visit. ALLERGIES: ALLERGIES Allergen Reactions - Adhesive Tape (Lora* Other: See Comments skin thinning, peels - Altace [Ramipril] Cough see note 04/01/06 - Cozaar [Losartan Po* Cough sx began shortly after stopping BRII-I 04/14 - Irbesartan Other: See Comments headache, dizziness - Lipitor [Atorvastat* Elevated CK. - Lisinopril Cough see note 05/12/03 - Sulindac GI Upset - Tramadol Rash - Vesicare [Solifenac* Intolerance Patient had constipation; dry mouth; nausea PAST MEDICAL HISTORY Diagnosis Date - Adjustment disorder with depressed mood - Benign neoplasm of colon - Carotid stenosis recheck in 03/24 - Chronic kidney disease, stage III (moderate) - CVA (cerebral vascular accident) (HCC) - Dementia - Diverticulosis of colon (without mention of hemorrhage) - Essential hypertension, benign - Generalized osteoarthrosis, unspecified site - Gout - Headache(784.0) - Hyperparathyroidism (HCC) 2013 - Lymphomatoid papulosis (HCC) - Meningioma (HCC) - Obesity, unspecified - Other and unspecified hyperlipidemia - Unspecified hypothyroidism PAST SURGICAL HISTORY Procedure Laterality Date - COLONOSCOP W/ OR W/O BRSH SPEC 02/08/99 Colonoscopy - COLONOSCOP W/ OR W/O BRSH SPEC 07/12/2008 Colonoscopy - EGD 01/18/2017 - EGD W/O OR W/BRUSH/WASH 11/04/2012 EGD - EGD W/O OR W/BRUSH/WASH 01/18/2017 - INSER NON-TUNNEL CVC >= 5 YR 06/19/07 - LAP CHOLECYSTECT/CHOLANGIOGRAPHY 06/19/07 - LAPAROSCOPY, SURGICAL, APPENDECTOMY 06/19/07 - REPAIR INCIS HERNIA W MESH 11-18-12 - REPAIR INCISIONAL HERNIA,MATILDE 11-18-12 - TOTAL HIP REPLACEMENT Hip replacement, total, right - TOTAL KNEE REPLACEMENT Knee replacement, total, left and right - TOTAL KNEE REPLACEMENT 2013 Right FAMILY HISTORY Problem Relation Age of Onset - tia [OTHER] Father - chf [OTHER] Mother - mi [OTHER] Maternal Grandfather - chf [OTHER] Maternal Grandmother - nonhodgkins lymphoma [OTHER] Daughter - Prostate Cancer Brother Social History Marital status: Spouse name: Mitra Years of education: Number of children: 3 Occupational History Occupation Employer Comment [employer]* Social History Main Topics Smoking status: Never Smoker Smokeless tobacco: Never Used Alcohol use: Yes Comment: socially Drug use: No Reviewed current medications, allergies, past medical history, surgical history, family history and social history today. REVIEW OF SYSTEMS All other reviewed and negative other than HPI. HEALTH MAINTENANCE: Reviewed health maintenance issues today and recommended the following in detail. VITALS: BP 132/60 Pulse (!) 49 Wt 81.9 kg (180 lb 9.6 oz) SpO2 98% BMI 35.27 kg/m? Last 4 Encounter Wt Readings: Date: Wt: 01/17/2018 81.9 kg (180 lb 9.6 oz) 10/03/2017 83.5 kg (184 lb) 04/18/2017 85.7 kg (189 lb) 04/11/2017 88 kg (194 lb) PHYSICAL EXAMINATION: General appearance: Well appearing, alert, in no acute distress, well-hydrated, well nourished. Skin: Skin color, texture, turgor normal, no suspicious rashes or lesions Head: Normocephalic, no masses, lesions, tenderness or abnormalities Neck: supple, no lymphadenopathy. Lungs: Lungs clear to auscultation. No wheezing, rhonchi, rales Heart: RRR without murmur, gallop, or rubs. No ectopy Abdomen: Normal abdominal exam, Abdomen soft, non-tender. Bowel sounds normal. No masses, organomegaly Extremities: No deformities, edema, skin discoloration, clubbing or cyanosis. Good capillary refill. ASSESSMENT/PLAN: 1. Bradycardia - ICD9: 427.89, ICD10: R00.1 (primary diagnosis) - stop diltiazem and start amlodipine. - check labs. Call with bp and pulses in one week. -RTO in one month - will send info to Dr. Cordova and see if we can get [employer] to send the info to them - ECG COMPLETE W INTERPRETATION-appears to be unchanged. 2. Paroxysmal atrial fibrillation (HCC) - ICD9: 427.31, ICD10: I48.0 - -continue meds. Follow vitals. - XR CHEST 2V FRONTAL/LAT 3. Chronic anticoagulation - ICD9: V58.61, ICD10: Z79.01 - stable. 4. SOB (shortness of breath) - ICD9: 786.05, ICD10: R06.02 - will have her follow with cardiology. Check labs and chest xray - CBC + DIFF - COMP METABOLIC PANEL - NT PRO BNP - XR CHEST 2V FRONTAL/LAT - ECG COMPLETE W INTERPRETATION 5. Hypothyroidism, unspecified type - ICD9: 244.9, ICD10: E03.9 - TSH BLD - LIPID PANEL, NONFASTING 6. Essential hypertension, benign - ICD9: 401.1, ICD10: I10 - Bp is actually better controlled currently. Will follow with med change. Wu Elena MD RTO in one month and prn. Wu Elena 01/17/2018 9:06 AM Signed Make changes with bp meds Call list of bp's and pulses in one week. Referring Provider: SELF [[id number]] Allergies As of Date: 01/17/2018 Noted Allergy Reaction ADHESIVE TAPE (ROSINS) 02/21/2011 14 - Other: See Comments Comments: skin thinning, peels ALTACE (RAMIPRIL) 04/01/2006 3 - Cough Comments: see note 04/01/06 COZAAR (LOSARTAN POTASSIUM) 05/06/2006 3 - Cough Comments: sx began shortly after stopping BRII-I 04/14 IRBESARTAN 04/16/2013 14 - Other: See Comments Comments: headache, dizziness LIPITOR (ATORVASTATIN CALCIUM) 03/28/2009 Comments: Elevated CK. LISINOPRIL 11/29/2005 3 - Cough Comments: see note 05/12/03 SULINDAC 11/09/2009 8 - GI Upset TRAMADOL 07/04/2011 2 - Rash VESICARE (SOLIFENACIN SUCCINATE) 10/05/2010 5 - Intolerance Comments: Patient had constipation; dry mouth; nausea Date Reviewed: 12/04/2017 Reviewed by: Katty Morales Ma - Fully Assessed Reason for Visit: Hypertension [168] Bradycardia [998] Primary Visit Diagnosis:Bradycardia [R00.1] Other Visit Diagnoses:Paroxysmal atrial fibrillation (HCC) [I48.0] Chronic anticoagulation [Z79.01] SOB (shortness of breath) [R06.02] Hypothyroidism, unspecified type [E03.9] Essential hypertension, benign [I10] Order(s):CBC + DIFF [SQCBCDIF] Order #: [id number] FUTURE COMP METABOLIC PANEL [SQCMP] Order #: [id number] FUTURE TSH BLD [SQTSH] Order #: [id number] FUTURE LIPID PANEL, NONFASTING [SQLIPNF] Order #: [id number] FUTURE NT PRO BNP [SQNTBNP] Order #: [id number] FUTURE XR CHEST 2V FRONTAL/LAT [3828516] Order #: [id number] FUTURE ECG COMPLETE W INTERPRETATION [ECG01] Order #: [id number] FUTURE CONSULT TO CARDIOLOGY [9004] Order #: [id number]: 1 Prescriptions as of 01/17/2018 Sig: NYSTATIN 100,000 UNIT/GRAM TO* Apply 1 application to affect* FLECAINIDE 50 MG TABLET Take 1 tablet by mouth twice * SERTRALINE 50 MG TABLET Take 1 tablet by mouth once d* KETOCONAZOLE 2 % TOPICAL CREAM Apply to affected area sparin* HYDROCORTISONE 2.5 % TOPICAL * Apply 1 application to affect* FLUTICASONE 50 MCG/ACTUATION * Use 1 [place] in each nostril d* CLOBETASOL 0.05 % TOPICAL OIN* Apply 1 application to affect* ELIQUIS 5 MG TABLET TAKE 1 TABLET TWICE DAILY FACIAL MASK To use with Oxygen. Hypoxi* POTASSIUM CHLORIDE ER 10 MEQ * Take 1 tablet by mouth once d* ATORVASTATIN 10 MG TABLET Take 1 tablet by mouth daily * LEVOTHYROXINE 100 MCG TABLET Take 1 tablet by mouth once d* FUROSEMIDE 20 MG TABLET Take 1 tablet by mouth once d* POLYETHYLENE GLYCOL 3350 17 G* One capful with 8 oz of water* PANTOPRAZOLE 40 MG TABLET,DEL* Take 1 tablet by mouth once d* ALBUTEROL SULFATE HFA 90 MCG/* Inhale 2 Puffs as instructed * ASPIRIN 81 MG TABLET,DELAYED * Take 81 mg by mouth once shital* AMLODIPINE 5 MG TABLET Take 1 tablet by mouth once d* ATENOLOL 50 MG TABLET Take 1 tablet by mouth twice * Problem List As Of Date 01/17/2018 Noted Resolved BENIGN HYPERTENSION [I10] INVALID FOR* Hypothyroidism [E03.9] INVALID FOR* More... OBESITY NOS [E66.9] INVALID FOR* Major depressive disorder, recurrent episode, u*INVALID FOR*08/30/2014 GENERAL OSTEOARTHROSIS [M15.9] INVALID FOR*01/12/2008 Hyperlipidemia [E78.5] INVALID FOR* CHOLECYSTITIS SEE ALSO GALLBLADDER ACUTE WITH*INVALID FOR*09/20/2008 CHRONIC KIDNEY DISEASE, STAGE I [N18.1] INVALID FOR*09/20/2008 Osteoarthritis [M19.90] INVALID FOR* CHRONIC KIDNEY DISEASE, STAGE III (MOD) [N18.3] INVALID FOR* More... 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 Bilateral carotid artery stenosis [I65.23] INVALID FOR* More... Shortness of breath [R06.02] INVALID FOR*01/25/2017 More... RODOLFO (obstructive sleep apnea) [G47.33] INVALID FOR* Meningioma (HCC) [D32.9] More... Memory loss [R41.3] INVALID FOR* More... Atrial fibrillation (HCC) [I48.91] INVALID FOR* More... Thoracic aortic aneurysm without rupture (HCC) *INVALID FOR* More... Hypercalcemia [E83.52] INVALID FOR* Chronic anticoagulation [Z79.01] INVALID FOR* Left renal mass [N28.89] INVALID FOR* More... Other instructions from your clinician: Make changes with bp meds Call list of bp's and pulses in one week. Visit Notes: >> Carmen EasonKatty SatJanuary 17, 2018 8:21 AM Status: Signed CARDIO: Pt received call from Dr. David's office yesterday. Fax came in from her [employer]. Dr David feels her pulse is too low and his blood pressure was too high. She was told to stop her Diltiazem and start Amlodipine 5 mg. Pt states that she has been short of breath for the last week. She still has a cough. Medications Discontinued During This Encounter benzonatate (TESSALON PERLE) 100 mg * 30 c* 0 12/04/2017 01/17/2018 Route: ORAL Sig: Take 1 capsule by mouth three times daily as needed for Cough. Disc: Course of therapy completed cholecalciferol, vitamin D3, 400 uni* 11/23/2017 01/17/2018 Class: Med Update Route: ORAL Sig: Take 1 capsule by mouth once daily. Disc: Discontinued by another Health Care Provider Disposition: Return in about 4 weeks (around 02/14/2018). Follow-up and Disposition History Recorded Encounter Status:Closed by WU ELENA MD on 01/17/18 CNNURSE Observed: 01/13/2018 Status: COMPLETED Source: [place] 2:15 PM [facility] REPOSITORY Nurse Visit (FAMPWS) KALINA DE LA CRUZ ([id number]) 1940 F Date Time Provider Department 01/13/18 2:15 PM [facility] your visit today, we recorded the following information about you: Pulse Blood pressure 54/minute 110/58 Liliya Rivers LPN 01/13/2018 2:16 PM Signed Manual Readin/58 Pulse: 54 Reason for blood pressure check - Last BP elevated and Medication adjustment Patient is: Taking medication as prescribed Yes Took medication today Yes If no, date medication last taken N/A Experiencing side effects No BP was elevated at home per TE on 12/13/17. Atenolol was increased to 50mg twice daily. Tolerating medication change well. Reports home readings have ranged 138-162/58-69 (did not bring home monitor today). Denies any chest pain, unusual shortness of breath, or dizziness. Does note headaches 1-2/wk; does not treat with anything. Drinks decaf. No personal history of tobacco use; no current exposure. Alert and oriented. Pt has been identified by name and birthdate: Yes Allergies reviewed: Yes Latex allergy: no. Medication - prescribed and OTC reviewed and updated: Yes Do you need any prescription refills prior to your next visit: No Health Maintenance: Reviewed and not up to date and provider notified Patient advised to continue with current medications and would be contacted with any further instructions after review by PCP. Liliya Rivers LPN Referring Provider: WU ELENA [[id number]] Allergies As of Date: 01/13/2018 Noted Allergy Reaction ADHESIVE TAPE (ROSINS) 02/21/2011 14 - Other: See Comments Comments: skin thinning, peels ALTACE (RAMIPRIL) 04/01/2006 3 - Cough Comments: see note 04/01/06 COZAAR (LOSARTAN POTASSIUM) 05/06/2006 3 - Cough Comments: sx began shortly after stopping BRII-I 04/14 IRBESARTAN 04/16/2013 14 - Other: See Comments Comments: headache, dizziness LIPITOR (ATORVASTATIN CALCIUM) 03/28/2009 Comments: Elevated CK. LISINOPRIL 11/29/2005 3 - Cough Comments: see note 05/12/03 SULINDAC 11/09/2009 8 - GI Upset TRAMADOL 07/04/2011 2 - Rash VESICARE (SOLIFENACIN SUCCINATE) 10/05/2010 5 - Intolerance Comments: Patient had constipation; dry mouth; nausea Date Reviewed: 12/04/2017 Reviewed by: Katty Morlaes Ma - Fully Assessed Reason for Visit: Blood Pressure Check [195] Primary Visit Diagnosis:Essential hypertension, benign [I10] Prescriptions as of 01/13/2018 Sig: NYSTATIN 100,000 UNIT/GRAM TO* Apply 1 application to affect* ATENOLOL 50 MG TABLET Take 1 tablet by mouth twice * BENZONATATE 100 MG CAPSULE Take 1 capsule by mouth three* FLECAINIDE 50 MG TABLET Take 1 tablet by mouth twice * CHOLECALCIFEROL (VITAMIN D3) * Take 1 capsule by mouth once * SERTRALINE 50 MG TABLET Take 1 tablet by mouth once d* KETOCONAZOLE 2 % TOPICAL CREAM Apply to affected area sparin* HYDROCORTISONE 2.5 % TOPICAL * Apply 1 application to affect* FLUTICASONE 50 MCG/ACTUATION * Use 1 [place] in each nostril d* CLOBETASOL 0.05 % TOPICAL OIN* Apply 1 application to affect* DILTIAZEM SR 120 MG 24 HR CAP Take 1 capsule by mouth twice* ELIQUIS 5 MG TABLET TAKE 1 TABLET TWICE DAILY FACIAL MASK To use with Oxygen. Hypoxi* POTASSIUM CHLORIDE ER 10 MEQ * Take 1 tablet by mouth once d* ATORVASTATIN 10 MG TABLET Take 1 tablet by mouth daily * LEVOTHYROXINE 100 MCG TABLET Take 1 tablet by mouth once d* FUROSEMIDE 20 MG TABLET Take 1 tablet by mouth once d* POLYETHYLENE GLYCOL 3350 17 G* One capful with 8 oz of water* PANTOPRAZOLE 40 MG TABLET,DEL* Take 1 tablet by mouth once d* ALBUTEROL SULFATE HFA 90 MCG/* Inhale 2 Puffs as instructed * ASPIRIN 81 MG TABLET,DELAYED * Take 81 mg by mouth once shital* Problem List As Of Date 01/13/2018 Noted Resolved BENIGN HYPERTENSION [I10] INVALID FOR* Hypothyroidism [E03.9] INVALID FOR* More... OBESITY NOS [E66.9] INVALID FOR* Major depressive disorder, recurrent episode, u*INVALID FOR*08/30/2014 GENERAL OSTEOARTHROSIS [M15.9] INVALID FOR*01/12/2008 Hyperlipidemia [E78.5] INVALID FOR* CHOLECYSTITIS SEE ALSO GALLBLADDER ACUTE WITH*INVALID FOR*09/20/2008 CHRONIC KIDNEY DISEASE, STAGE I [N18.1] INVALID FOR*09/20/2008 Osteoarthritis [M19.90] INVALID FOR* CHRONIC KIDNEY DISEASE, STAGE III (MOD) [N18.3] INVALID FOR* More... 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 Bilateral carotid artery stenosis [I65.23] INVALID FOR* More... Shortness of breath [R06.02] INVALID FOR*01/25/2017 More... RODOLFO (obstructive sleep apnea) [G47.33] INVALID FOR* Meningioma (HCC) [D32.9] More... Memory loss [R41.3] INVALID FOR* More... Atrial fibrillation (HCC) [I48.91] INVALID FOR* More... Thoracic aortic aneurysm without rupture (HCC) *INVALID FOR* More... Hypercalcemia [E83.52] INVALID FOR* Chronic anticoagulation [Z79.01] INVALID FOR* Left renal mass [N28.89] INVALID FOR* More... Encounter Status:Closed by LILIYA RIEVRS LPN on 01/13/18 PROGRESS Observed: 01/13/2018 Status: COMPLETED Source: [place] 2:07 PM [facility] REPOSITORY HNO ID: [id number] Author: Liliya Rivers LPN Service: (none) Author Type: (none) Type: Progress Notes Filed: 01/13/2018 2:16 PM Note Text: Manual Readin/58 Pulse: 54 Reason for blood pressure check - Last BP elevated and Medication adjustment Patient is: Taking medication as prescribed Yes Took medication today Yes If no, date medication last taken N/A Experiencing side effects No BP was elevated at home per TE on 12/13/17. Atenolol was increased to 50mg twice daily. Tolerating medication change well. Reports home readings have ranged 138-162/58-69 (did not bring home monitor today). Denies any chest pain, unusual shortness of breath, or dizziness. Does note headaches 1-2/wk; does not treat with anything. Drinks decaf. No personal history of tobacco use; no current exposure. Alert and oriented. Pt has been identified by name and birthdate: Yes Allergies reviewed: Yes Latex allergy: no. Medication - prescribed and OTC reviewed and updated: Yes Do you need any prescription refills prior to your next visit: No Health Maintenance: Reviewed and not up to date and provider notified Patient advised to continue with current medications and would be contacted with any further instructions after review by PCP. Liliya Rivers LPN BASIC METABOLIC Collected: 01/03/2018 Status: F Source: [place] PROFILE (BMP) 7:55 AM [facility] REPOSITORY TYPE CODE TESTS RESULT OUT OF RANGE REFERENCE UNITS LAB L501.0100 74-106 mg/dL Normal GLU 93 Result Comment: Please note revised GLUCOSE reference range effective 2017. LAB L501.1000 7-18 mg/dL High BUN 23 LAB L501.1100 0.55-1.02 mg/dL High CREAT,SERUM 1.21 Result Comment: The validity of the calculated GFR AND GFRAA in patients over 70 years has not been determined. Clinical correlation is essential. LAB L501.1110 >60 mL/min Low EST GFR 46 Result Comment: Non- GFR Calc LAB L501.1115 >60 mL/min Low EST GFR - AA 55 Result Comment: GFR Calc LAB L501.1300 10-20 RATIO Normal BUN/CRE 19.0 LAB L501.2200 8.5-10.1 mg/dL High CA 10.3 LAB L501.5300 136-145 mmol/L NA Normal 144 LAB L501.5600 3.5-5.1 mmol/L K Normal 3.9 LAB L501.5900 98-107 mmol/L CL Normal 104 LAB L501.6100 21.0-32.0 mmol/L Normal CO2 32.0 LAB L501.6200 5-15 Normal GAP 8 Performed By: #### L500.2500, L501.9520, L506.0400 #### [facility] [address] [place], [address] THYROID STIM HORMONE Collected: 01/03/2018 Status: F Source: HOLT (TSH) 7:55 AM [facility] REPOSITORY TYPE CODE TESTS RESULT OUT OF RANGE REFERENCE UNITS LAB L501.9520 0.358-3.74 uIU/mL Normal TSH 2.64 Performed By: #### L500.2500, L501.9520, L506.0400 #### [facility] [address] [place], [address] T4 FREE DIRECT Collected: 01/03/2018 Status: F Source: HOLT 7:55 AM [facility] REPOSITORY TYPE CODE TESTS RESULT OUT OF RANGE REFERENCE UNITS LAB L506.0400 0.76-1.46 ng/dL Normal T4 FREE 1.19 DIRECT Performed By: #### L500.2500, L501.9520, L506.0400 #### [facility] [address] [place], [address] PTHIN Collected: 01/03/2018 Status: F Source: HOLT 7:55 AM [facility] REPOSITORY TYPE CODE TESTS RESULT OUT OF RANGE REFERENCE UNITS LAB L509.1000 18.4-80.1 pg/mL High PTHIN 152.3 Result Comment: Please Note: PTH INTACT METHOD AND REFERENCE RANGE CHANGE Effective 08/28/2017. Performed By: #### L509.1000 #### [facility] [address] [place], [id number] VITAMIN D,25 HYDROXY Collected: 01/03/2018 Status: F Source: HOLT 7:55 AM [facility] REPOSITORY TYPE CODE TESTS RESULT OUT OF RANGE REFERENCE UNITS LAB L506.1000 29.95-100.01 ng/mL Normal Vitamin D 32.3 25-OH Result Comment: Vitamin D 25(OH) Status Range Deficiency <20 ng/mL (50nmol/L) Insuffciency 20 - 30 ng/mL (50 - 75 nmol/L) Sufficiency 30 - 100 ng/mL (75 - 250 nmol/L) Toxicity >100 ng/mL (>250 nmol/L) Performed By: #### [id number] #### [facility] [address] [place], [address] CALCIUM IONIZED Collected: 01/03/2018 Status: F Source: HOLT 7:55 AM [facility] REPOSITORY TYPE CODE TESTS RESULT OUT OF REFERENCE UNITS RANGE LAB L3100.9600 4.5-5.6 mg/dL High IONIZED CA 6.2 Result Comment: Performed at: - [facility] [id number] Project Account Manager: Garret Bean PhD, Phone: [phone] Performed By: #### [id number] #### [facility] (refer to report for specific site) refer to report for address and phone number CNPN Observed: 12/12/2017 Status: COMPLETED Source: JAMIE 12:00 AM [facility] REPOSITORY [facility] KALINA DE LA CRUZ ([id number]) 1940 F Date Time Provider Department 12/12/17 [facility]WS During your visit today, we recorded the following information about you: Zohreh Barahona, RN, RN 12/12/2017 2:43 PM Signed Pt called back to report that [employer] insurance voiced that pt does need a referral to see Dr Loo her Internet Developer @ . Wu Elena MD 12/12/2017 2:53 PM Signed Ok, see other te December Shyanne PAC 12/16/2017 4:57 PM Signed Tried to reach patients insurance to inquire about this request, on hold for 10+ minutes and was unable to wait any longer. Will try again tomorrow. December Shyanne PAC 12/17/2017 11:12 AM Signed Spoke to [facility] with patients [employer] insurance, she stated that referral is required for with Dr Loo. PSR does not handle so will forward to an email [employer] team to work on referral. Unsure why Epic referral states not required as it was never worked and automatically falls to that status of not required. December Shyanne PAC 12/19/2017 10:12 AM Signed Spoke with spouse who will inform patient still pending referral, informed him that she may be able to expedite the process by calling the insurance herself. Syvlie Garcia LPN 12/27/2017 9:26 AM Signed Letter received that this is authorized. Faxed to number below and insurance sent letter to patient. Allergies As of Date: 12/12/2017 Noted Allergy Reaction ADHESIVE TAPE (ROSINS) 02/21/2011 14 - Other: See Comments Comments: skin thinning, peels ALTACE (RAMIPRIL) 04/01/2006 3 - Cough Comments: see note 04/01/06 COZAAR (LOSARTAN POTASSIUM) 05/06/2006 3 - Cough Comments: sx began shortly after stopping BRII-I 04/14 IRBESARTAN 04/16/2013 14 - Other: See Comments Comments: headache, dizziness LIPITOR (ATORVASTATIN CALCIUM) 03/28/2009 Comments: Elevated CK. LISINOPRIL 11/29/2005 3 - Cough Comments: see note 05/12/03 SULINDAC 11/09/2009 8 - GI Upset TRAMADOL 07/04/2011 2 - Rash VESICARE (SOLIFENACIN SUCCINATE) 10/05/2010 5 - Intolerance Comments: Patient had constipation; dry mouth; nausea Date Reviewed: 12/04/2017 Reviewed by: Katty Morales Ma - Fully Assessed Reason for Visit: Referral Request [124] Prescriptions as of 12/12/2017 Sig: BENZONATATE 100 MG CAPSULE Take 1 capsule by mouth three* FLECAINIDE 50 MG TABLET Take 1 tablet by mouth twice * CHOLECALCIFEROL (VITAMIN D3) * Take 1 capsule by mouth once * SERTRALINE 50 MG TABLET Take 1 tablet by mouth once d* KETOCONAZOLE 2 % TOPICAL CREAM Apply to affected area sparin* HYDROCORTISONE 2.5 % TOPICAL * Apply 1 application to affect* FLUTICASONE 50 MCG/ACTUATION * Use 1 [place] in each nostril d* CLOBETASOL 0.05 % TOPICAL OIN* Apply 1 application to affect* DILTIAZEM SR 120 MG 24 HR CAP Take 1 capsule by mouth twice* X ATENOLOL 25 MG TABLET Take 1 tablet by mouth twice * ELIQUIS 5 MG TABLET TAKE 1 TABLET TWICE DAILY FACIAL MASK To use with Oxygen. Hypoxi* POTASSIUM CHLORIDE ER 10 MEQ * Take 1 tablet by mouth once d* ATORVASTATIN 10 MG TABLET Take 1 tablet by mouth daily * LEVOTHYROXINE 100 MCG TABLET Take 1 tablet by mouth once d* FUROSEMIDE 20 MG TABLET Take 1 tablet by mouth once d* POLYETHYLENE GLYCOL 3350 17 G* One capful with 8 oz of water* PANTOPRAZOLE 40 MG TABLET,DEL* Take 1 tablet by mouth once d* ALBUTEROL SULFATE HFA 90 MCG/* Inhale 2 Puffs as instructed * ASPIRIN 81 MG TABLET,DELAYED * Take 81 mg by mouth once shital* Problem List As Of Date 12/12/2017 Noted Resolved BENIGN HYPERTENSION [I10] INVALID FOR* Hypothyroidism [E03.9] INVALID FOR* More... OBESITY NOS [E66.9] INVALID FOR* Major depressive disorder, recurrent episode, u*INVALID FOR*08/30/2014 GENERAL OSTEOARTHROSIS [M15.9] INVALID FOR*01/12/2008 Hyperlipidemia [E78.5] INVALID FOR* CHOLECYSTITIS SEE ALSO GALLBLADDER ACUTE WITH*INVALID FOR*09/20/2008 CHRONIC KIDNEY DISEASE, STAGE I [N18.1] INVALID FOR*09/20/2008 Osteoarthritis [M19.90] INVALID FOR* CHRONIC KIDNEY DISEASE, STAGE III (MOD) [N18.3] INVALID FOR* More... 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 Bilateral carotid artery stenosis [I65.23] INVALID FOR* More... Shortness of breath [R06.02] INVALID FOR*01/25/2017 More... RODOLFO (obstructive sleep apnea) [G47.33] INVALID FOR* Meningioma (HCC) [D32.9] More... Memory loss [R41.3] INVALID FOR* More... Atrial fibrillation (HCC) [I48.91] INVALID FOR* More... Thoracic aortic aneurysm without rupture (HCC) *INVALID FOR* More... Hypercalcemia [E83.52] INVALID FOR* Chronic anticoagulation [Z79.01] INVALID FOR* Left renal mass [N28.89] INVALID FOR* More... Encounter Status:Closed by JESSI DOUGHERTY on 12/19/17 PROGRESS Observed: 12/06/2017 Status: COMPLETED Source: [place]OL[place] 11:25 AM [facility] REPOSITORY O ID: [id number] Author: Rebekah Arevalo Ct Service: (none) Author Type: (none) Type: Progress Notes Filed: 12/06/2017 11:25 AM Note Text: Radiology Service Progress Note PATIENT NAME: Kalina De La Cruz DATE OF SERVICE: December 06, 2017 TIME: 11:25 AM PATIENT IDENTITY VERIFICATION COMPLETED USING TWO (2) METHODS: Patient confirmed name verbally and Date of . PATIENT GENDER DATA: Female. status: : No status: NO. PATIENT RELEVANT IMPLANT DATA REVIEWED: Not Applicable RADIOLOGY DEPARTMENT: CT; Exam(s) Completed: Chest PERIPHERAL IV DATA: Not applicable SIGNED BY: Rebekah Arevalo Ct December 06, 2017 11:[address] CHEST WO IVCON Observed: 12/06/2017 Status: F Source: MAGNOLIA 8:37 AM [facility] REPOSITORY * * *Final Report* * * DATE OF EXAM: Dec 06 2017 8:37AM [facility] 0541 - CT CHEST WO IVCON / PROCEDURE REASON: Thoracic aortic aneurysm, without rupture * * * * Physician Interpretation * * * * EXAMINATION: CHEST CT WITHOUT CONTRAST Indication: Thoracic aortic aneurysm, without rupture Technique: Spiral CT acquisition of the chest from the thoracic inlet to the upper abdomen without contrast. MQ: [id number] CT Dose-Length Product: 295 mGy*cm CT Dose Reduction Employed: Automated exposure control (AEC) Comparison: 09/04/2017 chest radiograph RESULT: Limitations: None. Lines, tubes, and devices: None. Lung parenchyma and pleura: No consolidation. More likely benign 4 mm nodule in the left upper lobe 5:32. Benign calcified granuloma in the right lower lobe. Scattered subpleural linear and to a lesser degree groundglass density in the mid and lower lungs more likely secondary to chronic disease. Bronchial calcifications centrally. Minimal traction bronchiectasis in the left base. No pleural effusion. Thoracic inlet, heart, and mediastinum: Mild ascending aorta ectasia measures 4 cm diameter at level of pulmonary trunk. Aortic arteriosclerosis. Calcification at aortic and mitral annulus. Calcification at distal left anterior descending coronary artery. No lymphadenopathy. No pericardial effusion. Bones and soft tissues: Dorsal spondylosis and scoliosis with a right convex thoracic curvature. Upper abdomen: No abnormality in the imaged upper abdomen. IMPRESSION: Mild ascending aorta ectasia measures 4 cm diameter. No lung consolidation. Scattered subpleural linear and to a lesser degree groundglass density in the mid and lower lungs more likely secondary to chronic disease. More likely benign 4 mm nodule in the left upper lobe. Incidental Finding: No follow-up imaging for this incidentally detected lung nodule is recommended. If there are risk factors for lung malignancy or if the nodule has suspicious features (eg spiculated or upper lobe location), a follow-up chest CT exam could be obtained in 12 months. Database Programmer: CLEOPATRA Transcribe Date/Time: Dec 08 2017 5:17P Dictated by : Rajendra DAILEY MD This examination was interpreted and the report reviewed and electronically signed by: Rajendra DAILEY MD on Dec 08 2017 5:26PM EST [id number] PROGRESS Observed: 12/04/2017 Status: COMPLETED Source: MAGNOLIA 10:27 AM [facility] REPOSITORY O ID: [id number] Author: Wu Elena Service: (none) Author Type: Physician Type: Progress Notes Filed: 12/04/2017 10:47 AM Note Text: Patient presents with: URI HPI: Patient presents today for office visit for follow up. Nursing Notes: Katty Morales Ma 12/04/2017 10:16 AM Signed DURATION OF SYMPTOMS: Began 4 days ago ONSET OF SYMPTOMS: Gradual FEVER: Not checked BODYACHES: No TIREDNESS: Mild HEADACHE: Mild EAR SYMPTOMS: no STUFFY NOSE: Yes POST NASAL DRIP: yes SNEEZING: Yes SORE THROAT: Yes - mild COUGH: Yes, dry and with sputum production CHEST DISCOMFORT: No SHORTNESS OF BREATH: Yes - at rest WHEEZING: No SPUTUM PRODUCTION: Yellow OVER THE COUNTER MEDICATION PATIENT IS TAKING: Patient is using saline and vicks nasal inhaler Seems more in her head. and son are ill. Can't breathe out of her nose. No nausea, vomiting, diarrhea. MEDICATIONS: Current Outpatient Prescriptions: flecainide (TAMBOCOR) 50 mg tablet Take 1 tablet by mouth twice daily. cholecalciferol, vitamin D3, 400 unit cap Take 1 capsule by mouth once daily. sertraline (ZOLOFT) 50 mg tablet Take 1 tablet by mouth once daily. ketoconazole (NIZORAL) 2 % cream Apply to affected area sparingly twice daily for fungal rash hydrocortisone 2.5 % cream Apply 1 application to affected area twice daily. Location: under breasts and groin area fluticasone (FLONASE) 50 mcg/actuation nasal spray Use 1 [place] in each nostril daily at bedtime. before lying down. clobetasol (TEMOVATE) 0.05 % ointment Apply 1 application to affected area twice daily. apply as directed atenolol (TENORMIN) 25 mg tablet Take 1 tablet by mouth twice daily. diltiazem CD (CARDIZEM CD) 120 mg 24 hr capsule Take 1 capsule by mouth twice daily. ELIQUIS 5 mg tab tab(s) TAKE 1 TABLET TWICE DAILY Facial Mask misc To use with Oxygen.Hypoxia, rhinitis potassium chloride (KLOR-CON 10) 10 mEq tablet Take 1 tablet by mouth once daily. atorvastatin (LIPITOR) 10 mg tablet Take 1 tablet by mouth daily at bedtime. For cholesterol. levothyroxine (SYNTHROID) 100 mcg tablet Take 1 tablet by mouth once daily. Does not take on Saturday furosemide (LASIX) 20 mg tablet Take 1 tablet by mouth once daily. polyethylene glycol 3350 (MIRALAX) 17 gram/dose powder One capful with 8 oz of water each day pantoprazole DR (PROTONIX) 40 mg tablet Take 1 tablet by mouth once daily. albuterol HFA (PROAIR HFA) 90 mcg/actuation inhaler Inhale 2 Puffs as instructed every 4 hours as needed for Wheezing/Shortness of Breath. aspirin, enteric coated (ASPIRIN, ENTERIC COATED) 81 mg EC tablet Take 81 mg by mouth once daily. No current facility-administered medications for this visit. ALLERGIES: ALLERGIES Allergen Reactions - Adhesive Tape (Lora* Other: See Comments skin thinning, peels - Altace [Ramipril] Cough see note 04/01/06 - Cozaar [Losartan Po* Cough sx began shortly after stopping BRII-I 04/14 - Irbesartan Other: See Comments headache, dizziness - Lipitor [Atorvastat* Elevated CK. - Lisinopril Cough see note 05/12/03 - Sulindac GI Upset - Tramadol Rash - Vesicare [Solifenac* Intolerance Patient had constipation; dry mouth; nausea PAST MEDICAL HISTORY Diagnosis Date - Adjustment disorder with depressed mood - Benign neoplasm of colon - Carotid stenosis recheck in 03/24 - Chronic kidney disease, stage III (moderate) - CVA (cerebral vascular accident) (HCC) - Dementia - Diverticulosis of colon (without mention of hemorrhage) - Essential hypertension, benign - Generalized osteoarthrosis, unspecified site - Gout - Headache(784.0) - Hyperparathyroidism (HCC) 2013 - Lymphomatoid papulosis (HCC) - Meningioma (HCC) - Obesity, unspecified - Other and unspecified hyperlipidemia - Unspecified hypothyroidism PAST SURGICAL HISTORY Procedure Laterality Date - COLONOSCOP W/ OR W/O [facility] SPEC 02/08/99 Colonoscopy - COLONOSCOP W/ OR W/O [facility] SPEC 07/12/2008 Colonoscopy - EGD 01/18/2017 - EGD W/O OR W/BRUSH/WASH 11/04/2012 EGD - EGD W/O OR W/BRUSH/WASH 01/18/2017 - INSER NON-TUNNEL CVC >= 5 YR 06/19/07 - LAP CHOLECYSTECT/CHOLANGIOGRAPHY 06/19/07 - LAPAROSCOPY, SURGICAL, APPENDECTOMY 06/19/07 - REPAIR INCIS HERNIA W MESH 11-18-12 - REPAIR INCISIONAL HERNIA,MATILDE 11-18-12 - TOTAL HIP REPLACEMENT Hip replacement, total, right - TOTAL KNEE REPLACEMENT Knee replacement, total, left and right - TOTAL KNEE REPLACEMENT 2014 Right FAMILY HISTORY Problem Relation Age of Onset - tia [OTHER] Father - chf [OTHER] Mother - mi [OTHER] Maternal Grandfather - chf [OTHER] Maternal Grandmother - nonhodgkins lymphoma [OTHER] Daughter - Prostate Cancer Brother Social History Marital status: Spouse name: Mitra Years of education: Number of children: 3 Occupational History Occupation Employer Comment [employer]* Social History Main Topics Smoking status: Never Smoker Smokeless status: Never Used Alcohol use: Yes Comment: socially Drug use: No Reviewed current medications, allergies, past medical history, surgical history, family history and social history today. REVIEW OF SYSTEMS All other reviewed and negative other than HPI. HEALTH MAINTENANCE: Reviewed health maintenance issues today and recommended the following in detail. There are no preventive care reminders to display for this patient. VITALS: BP 126/60 Pulse (!) 50 Temp 36.3 ?C (97.3 ?F) (Tympanic) SpO2 96% Brought in home cuff. Last 4 Encounter Wt Readings: Date: Wt: 10/03/2017 83.5 kg (184 lb) 04/18/2017 85.7 kg (189 lb) 04/11/2017 88 kg (194 lb) 03/29/2017 87.2 kg (192 lb 3.2 oz) PHYSICAL EXAMINATION: General appearance: Well appearing, alert, in no acute distress, well-hydrated, well nourished. Skin: Skin color, texture, turgor normal, no suspicious rashes or lesions Head: Normocephalic, no masses, lesions, tenderness or abnormalities Ears: External ears normal, canals clear Nose/Sinuses: Nares normal, septum midline, mucosa normal, no drainage or sinus tenderness Oropharynx: Lips, mucosa, and tongue normal, teeth and gums normal, oropharynx normal Neck: Supple, no adenopathy Lungs: Lungs clear to auscultation. No wheezing, rhonchi, rales Heart: RRR without murmur, gallop, or rubs. No ectopy Abdomen: Normal abdominal exam, Abdomen soft, non-tender. Bowel sounds normal. No masses, organomegaly Extremities: No deformities, edema, skin discoloration, clubbing or cyanosis. Good capillary refill. ASSESSMENT/PLAN: 1. URI, acute - ICD9: 465.9, ICD10: J06.9 - Discussed viral etiology and rationale for treatment. - Symptomatic treatment with prn analgesia - Supportive care with fluids and rest - Follow up in one week if symptoms persist or sooner if worsening of symptoms - use mucinex prn - BENZONATATE 100 MG CAPSULE Wu Elena MD CNOV Observed: 12/04/2017 Status: COMPLETED Source: [place] 10:00 AM [facility] REPOSITORY [facility] KALINA DE LA CRUZ ([id number]) 1940 F Date Time Provider Department 12/04/17 10:00 AM [facility] During your visit today, we recorded the following information about you: Temperature Pulse Blood pressure 97.3 degrees 50/minute 126/60 Katty Morales Ma 12/04/2017 10:16 AM Signed DURATION OF SYMPTOMS: Began 4 days ago ONSET OF SYMPTOMS: Gradual FEVER: Not checked BODYACHES: No TIREDNESS: Mild HEADACHE: Mild EAR SYMPTOMS: no STUFFY NOSE: Yes POST NASAL DRIP: yes SNEEZING: Yes SORE THROAT: Yes - mild COUGH: Yes, dry and with sputum production CHEST DISCOMFORT: No SHORTNESS OF BREATH: Yes - at rest WHEEZING: No SPUTUM PRODUCTION: Yellow OVER THE COUNTER MEDICATION PATIENT IS TAKING: Patient is using saline and vicks nasal inhaler Wu Elena MD 12/04/2017 10:47 AM Signed Patient presents with: URI HPI: Patient presents today for office visit for follow up. Nursing Notes: Katty Morales Ma 12/04/2017 10:16 AM Signed DURATION OF SYMPTOMS: Began 4 days ago ONSET OF SYMPTOMS: Gradual FEVER: Not checked BODYACHES: No TIREDNESS: Mild HEADACHE: Mild EAR SYMPTOMS: no STUFFY NOSE: Yes POST NASAL DRIP: yes SNEEZING: Yes SORE THROAT: Yes - mild COUGH: Yes, dry and with sputum production CHEST DISCOMFORT: No SHORTNESS OF BREATH: Yes - at rest WHEEZING: No SPUTUM PRODUCTION: Yellow OVER THE COUNTER MEDICATION PATIENT IS TAKING: Patient is using saline and vicks nasal inhaler Seems more in her head. and son are ill. Can't breathe out of her nose. No nausea, vomiting, diarrhea. MEDICATIONS: Current Outpatient Prescriptions: flecainide (TAMBOCOR) 50 mg tablet Take 1 tablet by mouth twice daily. cholecalciferol, vitamin D3, 400 unit cap Take 1 capsule by mouth once daily. sertraline (ZOLOFT) 50 mg tablet Take 1 tablet by mouth once daily. ketoconazole (NIZORAL) 2 % cream Apply to affected area sparingly twice daily for fungal rash hydrocortisone 2.5 % cream Apply 1 application to affected area twice daily. Location: under breasts and groin area fluticasone (FLONASE) 50 mcg/actuation nasal spray Use 1 [place] in each nostril daily at bedtime. before lying down. clobetasol (TEMOVATE) 0.05 % ointment Apply 1 application to affected area twice daily. apply as directed atenolol (TENORMIN) 25 mg tablet Take 1 tablet by mouth twice daily. diltiazem CD (CARDIZEM CD) 120 mg 24 hr capsule Take 1 capsule by mouth twice daily. ELIQUIS 5 mg tab tab(s) TAKE 1 TABLET TWICE DAILY Facial Mask misc To use with Oxygen.Hypoxia, rhinitis potassium chloride (KLOR-CON 10) 10 mEq tablet Take 1 tablet by mouth once daily. atorvastatin (LIPITOR) 10 mg tablet Take 1 tablet by mouth daily at bedtime. For cholesterol. levothyroxine (SYNTHROID) 100 mcg tablet Take 1 tablet by mouth once daily. Does not take on Saturday furosemide (LASIX) 20 mg tablet Take 1 tablet by mouth once daily. polyethylene glycol 3350 (MIRALAX) 17 gram/dose powder One capful with 8 oz of water each day pantoprazole DR (PROTONIX) 40 mg tablet Take 1 tablet by mouth once daily. albuterol HFA (PROAIR HFA) 90 mcg/actuation inhaler Inhale 2 Puffs as instructed every 4 hours as needed for Wheezing/Shortness of Breath. aspirin, enteric coated (ASPIRIN, ENTERIC COATED) 81 mg EC tablet Take 81 mg by mouth once daily. No current facility-administered medications for this visit. ALLERGIES: ALLERGIES Allergen Reactions - Adhesive Tape (Lora* Other: See Comments skin thinning, peels - Altace [Ramipril] Cough see note 04/01/06 - Cozaar [Losartan Po* Cough sx began shortly after stopping BRII-I 04/14 - Irbesartan Other: See Comments headache, dizziness - Lipitor [Atorvastat* Elevated CK. - Lisinopril Cough see note 05/12/03 - Sulindac GI Upset - Tramadol Rash - Vesicare [Solifenac* Intolerance Patient had constipation; dry mouth; nausea PAST MEDICAL HISTORY Diagnosis Date - Adjustment disorder with depressed mood - Benign neoplasm of colon - Carotid stenosis recheck in 03/24 - Chronic kidney disease, stage III (moderate) - CVA (cerebral vascular accident) (HCC) - Dementia - Diverticulosis of colon (without mention of hemorrhage) - Essential hypertension, benign - Generalized osteoarthrosis, unspecified site - Gout - Headache(784.0) - Hyperparathyroidism (HCC) 2013 - Lymphomatoid papulosis (HCC) - Meningioma (HCC) - Obesity, unspecified - Other and unspecified hyperlipidemia - Unspecified hypothyroidism PAST SURGICAL HISTORY Procedure Laterality Date - COLONOSCOP W/ OR W/O [facility] SPEC 02/08/99 Colonoscopy - COLONOSCOP W/ OR W/O [facility] SPEC 07/12/2008 Colonoscopy - EGD 01/18/2017 - EGD W/O OR W/BRUSH/WASH 11/04/2012 EGD - EGD W/O OR W/BRUSH/WASH 01/18/2017 - INSER NON-TUNNEL CVC ANDgt;= 5 YR 06/19/07 - LAP CHOLECYSTECT/CHOLANGIOGRAPHY 06/19/07 - LAPAROSCOPY, SURGICAL, APPENDECTOMY 06/19/07 - REPAIR INCIS HERNIA W MESH 11-18-12 - REPAIR INCISIONAL HERNIA,MATILDE 11-18-12 - TOTAL HIP REPLACEMENT Hip replacement, total, right - TOTAL KNEE REPLACEMENT Knee replacement, total, left and right - TOTAL KNEE REPLACEMENT 2013 Right FAMILY HISTORY Problem Relation Age of Onset - tia [OTHER] Father - chf [OTHER] Mother - mi [OTHER] Maternal Grandfather - chf [OTHER] Maternal Grandmother - nonhodgkins lymphoma [OTHER] Daughter - Prostate Cancer Brother Social History Marital status: Spouse name: Mitra Years of education: Number of children: 3 Occupational History Occupation Employer Comment [employer]* Social History Main Topics Smoking status: Never Smoker Smokeless status: Never Used Alcohol use: Yes Comment: socially Drug use: No Reviewed current medications, allergies, past medical history, surgical history, family history and social history today. REVIEW OF SYSTEMS All other reviewed and negative other than HPI. HEALTH MAINTENANCE: Reviewed health maintenance issues today and recommended the following in detail. There are no preventive care reminders to display for this patient. VITALS: BP 126/60 Pulse (!) 50 Temp 36.3 ?C (97.3 ?F) (Tympanic) SpO2 96% Brought in home cuff. Last 4 Encounter Wt Readings: Date: Wt: 10/03/2017 83.5 kg (184 lb) 04/18/2017 85.7 kg (189 lb) 04/11/2017 88 kg (194 lb) 03/29/2017 87.2 kg (192 lb 3.2 oz) PHYSICAL EXAMINATION: General appearance: Well appearing, alert, in no acute distress, well-hydrated, well nourished. Skin: Skin color, texture, turgor normal, no suspicious rashes or lesions Head: Normocephalic, no masses, lesions, tenderness or abnormalities Ears: External ears normal, canals clear Nose/Sinuses: Nares normal, septum midline, mucosa normal, no drainage or sinus tenderness Oropharynx: Lips, mucosa, and tongue normal, teeth and gums normal, oropharynx normal Neck: Supple, no adenopathy Lungs: Lungs clear to auscultation. No wheezing, rhonchi, rales Heart: RRR without murmur, gallop, or rubs. No ectopy Abdomen: Normal abdominal exam, Abdomen soft, non-tender. Bowel sounds normal. No masses, organomegaly Extremities: No deformities, edema, skin discoloration, clubbing or cyanosis. Good capillary refill. ASSESSMENT/PLAN: 1. URI, acute - ICD9: 465.9, ICD10: J06.9 - Discussed viral etiology and rationale for treatment. - Symptomatic treatment with prn analgesia - Supportive care with fluids and rest - Follow up in one week if symptoms persist or sooner if worsening of symptoms - use mucinex prn - BENZONATATE 100 MG CAPSULE Wu Elena MD Referring Provider: SELF [[id number]] Allergies As of Date: 12/04/2017 Noted Allergy Reaction ADHESIVE TAPE (ROSINS) 02/21/2011 14 - Other: See Comments Comments: skin thinning, peels ALTACE (RAMIPRIL) 04/01/2006 3 - Cough Comments: see note 04/01/06 COZAAR (LOSARTAN POTASSIUM) 05/06/2006 3 - Cough Comments: sx began shortly after stopping BRII-I 04/14 IRBESARTAN 04/16/2013 14 - Other: See Comments Comments: headache, dizziness LIPITOR (ATORVASTATIN CALCIUM) 03/28/2009 Comments: Elevated CK. LISINOPRIL 11/29/2005 3 - Cough Comments: see note 05/12/03 SULINDAC 11/09/2009 8 - GI Upset TRAMADOL 07/04/2011 2 - Rash VESICARE (SOLIFENACIN SUCCINATE) 10/05/2010 5 - Intolerance Comments: Patient had constipation; dry mouth; nausea Date Reviewed: 12/04/2017 Reviewed by: Katty Morales Ma - Fully Assessed Reason for Visit: URI [115] Primary Visit Diagnosis:URI, acute [J06.9] Order(s):benzonatate (TESSALON PERLE) 100 mg capsuleTake 1 capsule by mouth three times daily as needed for Cough.Disp: 30 capsuleRfl: 0 Prescriptions as of 12/04/2017 Sig: FLECAINIDE 50 MG TABLET Take 1 tablet by mouth twice * CHOLECALCIFEROL (VITAMIN D3) * Take 1 capsule by mouth once * SERTRALINE 50 MG TABLET Take 1 tablet by mouth once d* KETOCONAZOLE 2 % TOPICAL CREAM Apply to affected area sparin* HYDROCORTISONE 2.5 % TOPICAL * Apply 1 application to affect* FLUTICASONE 50 MCG/ACTUATION * Use 1 [place] in each nostril d* CLOBETASOL 0.05 % TOPICAL OIN* Apply 1 application to affect* ATENOLOL 25 MG TABLET Take 1 tablet by mouth twice * DILTIAZEM SR 120 MG 24 HR CAP Take 1 capsule by mouth twice* ELIQUIS 5 MG TABLET TAKE 1 TABLET TWICE DAILY FACIAL MASK To use with Oxygen. Hypoxi* POTASSIUM CHLORIDE ER 10 MEQ * Take 1 tablet by mouth once d* ATORVASTATIN 10 MG TABLET Take 1 tablet by mouth daily * LEVOTHYROXINE 100 MCG TABLET Take 1 tablet by mouth once d* FUROSEMIDE 20 MG TABLET Take 1 tablet by mouth once d* POLYETHYLENE GLYCOL 3350 17 G* One capful with 8 oz of water* PANTOPRAZOLE 40 MG TABLET,DEL* Take 1 tablet by mouth once d* ALBUTEROL SULFATE HFA 90 MCG/* Inhale 2 Puffs as instructed * ASPIRIN 81 MG TABLET,DELAYED * Take 81 mg by mouth once shital* BENZONATATE 100 MG CAPSULE Take 1 capsule by mouth three* Problem List As Of Date 12/04/2017 Noted Resolved BENIGN HYPERTENSION [I10] INVALID FOR* Hypothyroidism [E03.9] INVALID FOR* More... OBESITY NOS [E66.9] INVALID FOR* Major depressive disorder, recurrent episode, u*INVALID FOR*08/30/2014 GENERAL OSTEOARTHROSIS [M15.9] INVALID FOR*01/12/2008 Hyperlipidemia [E78.5] INVALID FOR* CHOLECYSTITIS SEE ALSO GALLBLADDER ACUTE WITH*INVALID FOR*09/20/2008 CHRONIC KIDNEY DISEASE, STAGE I [N18.1] INVALID FOR*09/20/2008 Osteoarthritis [M19.90] INVALID FOR* CHRONIC KIDNEY DISEASE, STAGE III (MOD) [N18.3] INVALID FOR* More... 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 Bilateral carotid artery stenosis [I65.23] INVALID FOR* More... Shortness of breath [R06.02] INVALID FOR*01/25/2017 More... RODOLFO (obstructive sleep apnea) [G47.33] INVALID FOR* Meningioma (HCC) [D32.9] More... Memory loss [R41.3] INVALID FOR* More... Atrial fibrillation (HCC) [I48.91] INVALID FOR* More... Thoracic aortic aneurysm without rupture (HCC) *INVALID FOR* More... Hypercalcemia [E83.52] INVALID FOR* Chronic anticoagulation [Z79.01] INVALID FOR* Left renal mass [N28.89] INVALID FOR* More... Visit Notes: >> Katty Morales Ma SatDec 04, 2017 9:58 AM Status: Signed DURATION OF SYMPTOMS: Began 4 days ago ONSET OF SYMPTOMS: Gradual FEVER: Not checked BODYACHES: No TIREDNESS: Mild HEADACHE: Mild EAR SYMPTOMS: no STUFFY NOSE: Yes POST NASAL DRIP: yes SNEEZING: Yes SORE THROAT: Yes - mild COUGH: Yes, dry and with sputum production CHEST DISCOMFORT: No SHORTNESS OF BREATH: Yes - at rest WHEEZING: No SPUTUM PRODUCTION: Yellow OVER THE COUNTER MEDICATION PATIENT IS TAKING: Patient is using saline and vicks nasal inhaler Prescriptions ordered this encounter Disp Refills Start End BENZONATATE 100 MG CAPSULE 30 c* 0 12/04/2017 Route: ORAL Sig: Take 1 capsule by mouth three times daily as needed for Cough. Disposition: Return if symptoms worsen or fail to improve. Follow-up and Disposition History Recorded Classic SmartForms filed during this visit: [place] Encounter Status:Closed by WU ELENA MD on 12/04/17 PROGRESS Observed: 11/23/2017 Status: COMPLETED Source: [place] 11:36 AM [facility] RE[facility] O ID: [id number] Author: Wu Elena Service: (none) Author Type: Physician Type: Progress Notes Filed: 11/23/2017 12:01 PM Note Text: Patient presents with: Blood Pressure: reports still with minimal elevation at home when checking HPI: Patient presents today for office visit for follow up. HYPERTENSION: changed back to atenolol. bp is good here. Last time she checked her machine it was invalid. No chest pain. Occasional shortness of breath. I discussed that I would like to recheck her bp cuff one more time since she reports they got a new cuff. She brings in papers from her insurance asking about tetanus, bone density and lipids. All have been done. endo has been watching her bone density. Sees Dr. Hathaway next week. Sees [facility]. Sees endo regularly. Sees Dr. Cordova as well. Sees derm at -Dr. Loo.-due for follow up. MEDICATIONS: Current Outpatient Prescriptions: sertraline (ZOLOFT) 50 mg tablet Take 1 tablet by mouth once daily. atenolol (TENORMIN) 25 mg tablet Take 1 tablet by mouth twice daily. diltiazem CD (CARDIZEM CD) 120 mg 24 hr capsule Take 1 capsule by mouth twice daily. flecainide (TAMBOCOR) 50 mg tablet Take 2 tablets by mouth twice daily. ELIQUIS 5 mg tab tab(s) TAKE 1 TABLET TWICE DAILY potassium chloride (KLOR-CON 10) 10 mEq tablet Take 1 tablet by mouth once daily. atorvastatin (LIPITOR) 10 mg tablet Take 1 tablet by mouth daily at bedtime. For cholesterol. furosemide (LASIX) 20 mg tablet Take 1 tablet by mouth once daily. Cholecalciferol, Vitamin D3, 1,000 unit cap Take 1 capsule by mouth twice daily. albuterol HFA (PROAIR HFA) 90 mcg/actuation inhaler Inhale 2 Puffs as instructed every 4 hours as needed for Wheezing/Shortness of Breath. aspirin, enteric coated (ASPIRIN, ENTERIC COATED) 81 mg EC tablet Take 81 mg by mouth once daily. ketoconazole (NIZORAL) 2 % cream Apply to affected area sparingly twice daily for fungal rash hydrocortisone 2.5 % cream Apply 1 application to affected area twice daily. Location: under breasts and groin area fluticasone (FLONASE) 50 mcg/actuation nasal spray Use 1 [place] in each nostril daily at bedtime. before lying down. clobetasol (TEMOVATE) 0.05 % ointment Apply 1 application to affected area twice daily. apply as directed Facial Mask misc To use with Oxygen.Hypoxia, rhinitis levothyroxine (SYNTHROID) 100 mcg tablet Take 1 tablet by mouth once daily. Does not take on Saturday polyethylene glycol 3350 (MIRALAX) 17 gram/dose powder One capful with 8 oz of water each day pantoprazole DR (PROTONIX) 40 mg tablet Take 1 tablet by mouth once daily. (Patient not taking: Reported on 10/14/2017 ) No current facility-administered medications for this visit. ALLERGIES: ALLERGIES Allergen Reactions - Adhesive Tape (Lora* Other: See Comments skin thinning, peels - Altace [Ramipril] Cough see note 04/01/06 - Cozaar [Losartan Po* Cough sx began shortly after stopping BRII-I 04/14 - Irbesartan Other: See Comments headache, dizziness - Lipitor [Atorvastat* Elevated CK. - Lisinopril Cough see note 05/12/03 - Sulindac GI Upset - Tramadol Rash - Vesicare [Solifenac* Intolerance Patient had constipation; dry mouth; nausea PAST MEDICAL HISTORY Diagnosis Date - Adjustment disorder with depressed mood - Benign neoplasm of colon - Carotid stenosis recheck in 03/24 - Chronic kidney disease, stage III (moderate) - CVA (cerebral vascular accident) (HCC) - Dementia - Diverticulosis of colon (without mention of hemorrhage) - Essential hypertension, benign - Generalized osteoarthrosis, unspecified site - Gout - Headache(784.0) - Hyperparathyroidism (HCC) 2013 - Lymphomatoid papulosis (HCC) - Meningioma (HCC) - Obesity, unspecified - Other and unspecified hyperlipidemia - Unspecified hypothyroidism PAST SURGICAL HISTORY Procedure Laterality Date - COLONOSCOP W/ OR W/O [facility] SPEC 02/08/99 Colonoscopy - COLONOSCOP W/ OR W/O [facility] SPEC 07/12/2008 Colonoscopy - EGD 01/18/2017 - EGD W/O OR W/BRUSH/WASH 11/04/2012 EGD - EGD W/O OR W/BRUSH/WASH 01/18/2017 - INSER NON-TUNNEL CVC >= 5 YR 06/19/07 - LAP CHOLECYSTECT/CHOLANGIOGRAPHY 06/19/07 - LAPAROSCOPY, SURGICAL, APPENDECTOMY 06/19/07 - REPAIR INCIS HERNIA W MESH 11-18-12 - REPAIR INCISIONAL HERNIA,MATILDE 11-18-12 - TOTAL HIP REPLACEMENT Hip replacement, total, right - TOTAL KNEE REPLACEMENT Knee replacement, total, left and right - TOTAL KNEE REPLACEMENT 2013 Right FAMILY HISTORY Problem Relation Age of Onset - tia [OTHER] Father - chf [OTHER] Mother - mi [OTHER] Maternal Grandfather - chf [OTHER] Maternal Grandmother - nonhodgkins lymphoma [OTHER] Daughter - Prostate Cancer Brother Social History Marital status: Spouse name: Mitra Years of education: Number of children: 3 Occupational History Occupation Employer Comment [employer]* Social History Main Topics Smoking status: Never Smoker Smokeless status: Never Used Alcohol use: Yes Comment: socially Drug use: No Reviewed current medications, allergies, past medical history, surgical history, family history and social history today. REVIEW OF SYSTEMS All other reviewed and negative other than HPI. HEALTH MAINTENANCE: Reviewed health maintenance issues today and recommended the following in detail. There are no preventive care reminders to display for this patient. VITALS: BP 132/62 Pulse 60 Resp 14 Last 4 Encounter Wt Readings: Date: Wt: 10/03/2017 83.5 kg (184 lb) 04/18/2017 85.7 kg (189 lb) 04/11/2017 88 kg (194 lb) 03/29/2017 87.2 kg (192 lb 3.2 oz) PHYSICAL EXAMINATION: General appearance: Well appearing, alert, in no acute distress, well-hydrated, well nourished. Skin: Skin color, texture, turgor normal, no suspicious rashes or lesions Head: Normocephalic, no masses, lesions, tenderness or abnormalities Lungs: Lungs clear to auscultation. No wheezing, rhonchi, rales Heart: RRR without murmur, gallop, or rubs. No ectopy Abdomen: Normal abdominal exam, Abdomen soft, non-tender. Bowel sounds normal. No masses, organomegaly Extremities: No deformities, edema, skin discoloration, clubbing or cyanosis. Good capillary refill. ASSESSMENT/PLAN: 1. Essential hypertension, benign - ICD9: 401.1, ICD10: I10 (primary diagnosis) - Recommended regular aerobic exercise. - Recommend home blood pressure monitoring, to bring results in on next visit - Will bring in her machine - Goal of BP <140/90 2. Left renal mass - ICD9: 593.9, ICD10: N28.89 - follow with urology 3. Hypothyroidism, unspecified type - ICD9: 244.9, ICD10: E03.9 - continue current meds. 4. Chronic kidney disease, stage III (moderate) - ICD9: 585.3, ICD10: N18.3 - follow labs. 5. Lymphomatoid papulosis (HCC) - ICD9: 709.8, ICD10: C86.6 - see derm 6. Meningioma (HCC) - ICD9: 225.2, ICD10: D32.9 7. Paroxysmal atrial fibrillation (HCC) - ICD9: 427.31, ICD10: I48.0 - call if any issues. 8. Thoracic aortic aneurysm without rupture (HCC) - ICD9: 441.2, ICD10: I71.2 - check ct. - CT CHEST WO IVCON Wu Elena MD RTO in three months and prn. CNOV Observed: 11/23/2017 Status: COMPLETED Source: [place] 11:20 AM [facility] REPOSITORY [facility] KALINA DE LA CRUZ ([id number]) 1940 F Date Time Provider Department 11/23/17 11:20 AM [facility] During your visit today, we recorded the following information about you: Pulse Respiration Blood pressure 60/minute 14/minute 132/62 Wu Elena MD 11/23/2017 12:01 PM Signed Patient presents with: Blood Pressure: reports still with minimal elevation at home when checking HPI: Patient presents today for office visit for follow up. HYPERTENSION: changed back to atenolol. bp is good here. Last time she checked her machine it was invalid. No chest pain. Occasional shortness of breath. I discussed that I would like to recheck her bp cuff one more time since she reports they got a new cuff. She brings in papers from her insurance asking about tetanus, bone density and lipids. All have been done. rylan has been watching her bone density. Sees Dr. Hathaway next week. Sees [facility]. Sees rylan regularly. Sees Dr. Cordova as well. Sees tejal at -Dr. Loo.-due for follow up. MEDICATIONS: Current Outpatient Prescriptions: sertraline (ZOLOFT) 50 mg tablet Take 1 tablet by mouth once daily. atenolol (TENORMIN) 25 mg tablet Take 1 tablet by mouth twice daily. diltiazem CD (CARDIZEM CD) 120 mg 24 hr capsule Take 1 capsule by mouth twice daily. flecainide (TAMBOCOR) 50 mg tablet Take 2 tablets by mouth twice daily. ELIQUIS 5 mg tab tab(s) TAKE 1 TABLET TWICE DAILY potassium chloride (KLOR-CON 10) 10 mEq tablet Take 1 tablet by mouth once daily. atorvastatin (LIPITOR) 10 mg tablet Take 1 tablet by mouth daily at bedtime. For cholesterol. furosemide (LASIX) 20 mg tablet Take 1 tablet by mouth once daily. Cholecalciferol, Vitamin D3, 1,000 unit cap Take 1 capsule by mouth twice daily. albuterol HFA (PROAIR HFA) 90 mcg/actuation inhaler Inhale 2 Puffs as instructed every 4 hours as needed for Wheezing/Shortness of Breath. aspirin, enteric coated (ASPIRIN, ENTERIC COATED) 81 mg EC tablet Take 81 mg by mouth once daily. ketoconazole (NIZORAL) 2 % cream Apply to affected area sparingly twice daily for fungal rash hydrocortisone 2.5 % cream Apply 1 application to affected area twice daily. Location: under breasts and groin area fluticasone (FLONASE) 50 mcg/actuation nasal spray Use 1 [place] in each nostril daily at bedtime. before lying down. clobetasol (TEMOVATE) 0.05 % ointment Apply 1 application to affected area twice daily. apply as directed Facial Mask misc To use with Oxygen.Hypoxia, rhinitis levothyroxine (SYNTHROID) 100 mcg tablet Take 1 tablet by mouth once daily. Does not take on Saturday polyethylene glycol 3350 (MIRALAX) 17 gram/dose powder One capful with 8 oz of water each day pantoprazole DR (PROTONIX) 40 mg tablet Take 1 tablet by mouth once daily. (Patient not taking: Reported on 10/14/2017 ) No current facility-administered medications for this visit. ALLERGIES: ALLERGIES Allergen Reactions - Adhesive Tape (Lora* Other: See Comments skin thinning, peels - Altace [Ramipril] Cough see note 04/01/06 - Cozaar [Losartan Po* Cough sx began shortly after stopping BRII-I 04/14 - Irbesartan Other: See Comments headache, dizziness - Lipitor [Atorvastat* Elevated CK. - Lisinopril Cough see note 05/12/03 - Sulindac GI Upset - Tramadol Rash - Vesicare [Solifenac* Intolerance Patient had constipation; dry mouth; nausea PAST MEDICAL HISTORY Diagnosis Date - Adjustment disorder with depressed mood - Benign neoplasm of colon - Carotid stenosis recheck in 03/24 - Chronic kidney disease, stage III (moderate) - CVA (cerebral vascular accident) (HCC) - Dementia - Diverticulosis of colon (without mention of hemorrhage) - Essential hypertension, benign - Generalized osteoarthrosis, unspecified site - Gout - Headache(784.0) - Hyperparathyroidism (HCC) 2013 - Lymphomatoid papulosis (HCC) - Meningioma (HCC) - Obesity, unspecified - Other and unspecified hyperlipidemia - Unspecified hypothyroidism PAST SURGICAL HISTORY Procedure Laterality Date - COLONOSCOP W/ OR W/O [facility] SPEC 02/08/99 Colonoscopy - COLONOSCOP W/ OR W/O [facility] SPEC 07/12/2008 Colonoscopy - EGD 01/18/2017 - EGD W/O OR W/BRUSH/WASH 11/04/2012 EGD - EGD W/O OR W/BRUSH/WASH 01/18/2017 - INSER NON-TUNNEL CVC ANDgt;= 5 YR 06/19/07 - LAP CHOLECYSTECT/CHOLANGIOGRAPHY 06/19/07 - LAPAROSCOPY, SURGICAL, APPENDECTOMY 06/19/07 - REPAIR INCIS HERNIA W MESH 11-18-12 - REPAIR INCISIONAL HERNIA,MATILDE 11-18-12 - TOTAL HIP REPLACEMENT Hip replacement, total, right - TOTAL KNEE REPLACEMENT Knee replacement, total, left and right - TOTAL KNEE REPLACEMENT 2013 Right FAMILY HISTORY Problem Relation Age of Onset - tia [OTHER] Father - chf [OTHER] Mother - mi [OTHER] Maternal Grandfather - chf [OTHER] Maternal Grandmother - nonhodgkins lymphoma [OTHER] Daughter - Prostate Cancer Brother Social History Marital status: Spouse name: Mitra Years of education: Number of children: 3 Occupational History Occupation Employer Comment [employer]* Social History Main Topics Smoking status: Never Smoker Smokeless status: Never Used Alcohol use: Yes Comment: socially Drug use: No Reviewed current medications, allergies, past medical history, surgical history, family history and social history today. REVIEW OF SYSTEMS All other reviewed and negative other than HPI. HEALTH MAINTENANCE: Reviewed health maintenance issues today and recommended the following in detail. There are no preventive care reminders to display for this patient. VITALS: BP 132/62 Pulse 60 Resp 14 Last 4 Encounter Wt Readings: Date: Wt: 10/03/2017 83.5 kg (184 lb) 04/18/2017 85.7 kg (189 lb) 04/11/2017 88 kg (194 lb) 03/29/2017 87.2 kg (192 lb 3.2 oz) PHYSICAL EXAMINATION: General appearance: Well appearing, alert, in no acute distress, well-hydrated, well nourished. Skin: Skin color, texture, turgor normal, no suspicious rashes or lesions Head: Normocephalic, no masses, lesions, tenderness or abnormalities Lungs: Lungs clear to auscultation. No wheezing, rhonchi, rales Heart: RRR without murmur, gallop, or rubs. No ectopy Abdomen: Normal abdominal exam, Abdomen soft, non-tender. Bowel sounds normal. No masses, organomegaly Extremities: No deformities, edema, skin discoloration, clubbing or cyanosis. Good capillary refill. ASSESSMENT/PLAN: 1. Essential hypertension, benign - ICD9: 401.1, ICD10: I10 (primary diagnosis) - Recommended regular aerobic exercise. - Recommend home blood pressure monitoring, to bring results in on next visit - Will bring in her machine - Goal of BP ANDlt;140/90 2. Left renal mass - ICD9: 593.9, ICD10: N28.89 - follow with urology 3. Hypothyroidism, unspecified type - ICD9: 244.9, ICD10: E03.9 - continue current meds. 4. Chronic kidney disease, stage III (moderate) - ICD9: 585.3, ICD10: N18.3 - follow labs. 5. Lymphomatoid papulosis (HCC) - ICD9: 709.8, ICD10: C86.6 - see derm 6. Meningioma (HCC) - ICD9: 225.2, ICD10: D32.9 7. Paroxysmal atrial fibrillation (HCC) - ICD9: 427.31, ICD10: I48.0 - call if any issues. 8. Thoracic aortic aneurysm without rupture (HCC) - ICD9: 441.2, ICD10: I71.2 - check ct. - CT CHEST WO IVCON Wu Elena MD RTO in three months and prn. Wu Elena MD 11/23/2017 12:01 PM Signed Addended by: WU ELENA MD on: 11/23/2017 12:01 PM Modules accepted: Orders Referring Provider: Naomi WHARTON (LEBRON) [[id number]] Allergies As of Date: 11/23/2017 Noted Allergy Reaction ADHESIVE TAPE (ROSINS) 02/21/2011 14 - Other: See Comments Comments: skin thinning, peels ALTACE (RAMIPRIL) 04/01/2006 3 - Cough Comments: see note 04/01/06 COZAAR (LOSARTAN POTASSIUM) 05/06/2006 3 - Cough Comments: sx began shortly after stopping BRII-I 04/14 IRBESARTAN 04/16/2013 14 - Other: See Comments Comments: headache, dizziness LIPITOR (ATORVASTATIN CALCIUM) 03/28/2009 Comments: Elevated CK. LISINOPRIL 11/29/2005 3 - Cough Comments: see note 05/12/03 SULINDAC 11/09/2009 8 - GI Upset TRAMADOL 07/04/2011 2 - Rash VESICARE (SOLIFENACIN SUCCINATE) 10/05/2010 5 - Intolerance Comments: Patient had constipation; dry mouth; nausea Date Reviewed: 10/14/2017 Reviewed by: Sylvie Garcia LPN - Fully Assessed Reason for Visit: Blood Pressure [15] Cmt: reports still with minimal elevation at home when checking Reason For Visit History Recorded Primary Visit Diagnosis:Essential hypertension, benign [I10] Other Visit Diagnoses:Left renal mass [N28.89] Hypothyroidism, unspecified type [E03.9] Chronic kidney disease, stage III (moderate) [N18.3] Lymphomatoid papulosis (HCC) [C86.6] Meningioma (HCC) [D32.9] Paroxysmal atrial fibrillation (HCC) [I48.0] Thoracic aortic aneurysm without rupture (HCC) [I71.2] Mixed hyperlipidemia [E78.2] Order(s):flecainide (TAMBOCOR) 50 mg tabletTake 1 tablet by mouth twice daily.Disp: 60 tabletRfl: 1 cholecalciferol, vitamin D3, 400 unit capTake 1 capsule by mouth once daily.Disp: Rfl: CT CHEST WO IVCON [[id number]] Order #: [id number] FUTURE CBC + DIFF [SQCBCDIF] Order #: [id number] FUTURE COMP METABOLIC PANEL [SQCMP] Order #: [id number] FUTURE LIPID PANEL BASIC [SQLIPB] Order #: [id number] FUTURE TSH BLD [SQTS] Order #: [id number] FUTURE CONSULT TO DERMATOLOGY [9006] Order #: [id number]: 1 Prescriptions as of 11/23/2017 Sig: FLECAINIDE 50 MG TABLET Take 1 tablet by mouth twice * SERTRALINE 50 MG TABLET Take 1 tablet by mouth once d* ATENOLOL 25 MG TABLET Take 1 tablet by mouth twice * DILTIAZEM SR 120 MG 24 HR CAP Take 1 capsule by mouth twice* ELIQUIS 5 MG TABLET TAKE 1 TABLET TWICE DAILY POTASSIUM CHLORIDE ER 10 MEQ * Take 1 tablet by mouth once d* ATORVASTATIN 10 MG TABLET Take 1 tablet by mouth daily * FUROSEMIDE 20 MG TABLET Take 1 tablet by mouth once d* ALBUTEROL SULFATE HFA 90 MCG/* Inhale 2 Puffs as instructed * ASPIRIN 81 MG TABLET,DELAYED * Take 81 mg by mouth once shital* CHOLECALCIFEROL (VITAMIN D3) * Take 1 capsule by mouth once * KETOCONAZOLE 2 % TOPICAL CREAM Apply to affected area sparin* HYDROCORTISONE 2.5 % TOPICAL * Apply 1 application to affect* FLUTICASONE 50 MCG/ACTUATION * Use 1 [place] in each nostril d* CLOBETASOL 0.05 % TOPICAL OIN* Apply 1 application to affect* FACIAL MASK To use with Oxygen. Hypoxi* LEVOTHYROXINE 100 MCG TABLET Take 1 tablet by mouth once d* POLYETHYLENE GLYCOL 3350 17 G* One capful with 8 oz of water* PANTOPRAZOLE 40 MG TABLET,DEL* Take 1 tablet by mouth once d* Patient not taking: Reported on 10/14/2017 Problem List As Of Date 11/23/2017 Noted Resolved BENIGN HYPERTENSION [I10] INVALID FOR* Hypothyroidism [E03.9] INVALID FOR* More... OBESITY NOS [E66.9] INVALID FOR* Major depressive disorder, recurrent episode, u*INVALID FOR*08/30/2014 GENERAL OSTEOARTHROSIS [M15.9] INVALID FOR*01/12/2008 Hyperlipidemia [E78.5] INVALID FOR* CHOLECYSTITIS SEE ALSO GALLBLADDER ACUTE WITH*INVALID FOR*09/20/2008 CHRONIC KIDNEY DISEASE, STAGE I [N18.1] INVALID FOR*09/20/2008 Osteoarthritis [M19.90] INVALID FOR* CHRONIC KIDNEY DISEASE, STAGE III (MOD) [N18.3] INVALID FOR* More... 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 Bilateral carotid artery stenosis [I65.23] INVALID FOR* More... Shortness of breath [R06.02] INVALID FOR*01/25/2017 More... RODOLFO (obstructive sleep apnea) [G47.33] INVALID FOR* Meningioma (HCC) [D32.9] More... Memory loss [R41.3] INVALID FOR* More... Atrial fibrillation (HCC) [I48.91] INVALID FOR* More... Thoracic aortic aneurysm without rupture (HCC) *INVALID FOR* More... Hypercalcemia [E83.52] INVALID FOR* Chronic anticoagulation [Z79.01] INVALID FOR* Left renal mass [N28.89] INVALID FOR* More... Prescriptions ordered this encounter Disp Refills Start End FLECAINIDE 50 MG TABLET 60 t* 1 11/23/2017 Class: Med Update Route: ORAL Sig: Take 1 tablet by mouth twice daily. CHOLECALCIFEROL (VITAMIN D3) 400 UNI* 11/23/2017 Class: Med Update Route: ORAL Sig: Take 1 capsule by mouth once daily. Medications Discontinued During This Encounter flecainide (TAMBOCOR) 50 mg tablet 60 t* 1 08/22/2017 11/23/2017 Route: ORAL Sig: Take 2 tablets by mouth twice daily. Disc: Reason for discontinue is not on file. Cholecalciferol, Vitamin D3, 1,000 u* 01/28/2017 11/23/2017 Class: Med Update Route: ORAL Sig: Take 1 capsule by mouth twice daily. Disc: Reason for discontinue is not on file. Disposition: Return in about 3 months (around 02/23/2018). Follow-up and Disposition History Recorded Encounter Status:Closed by WU ELENA MD on 11/23/17 PROGRESS Observed: 10/14/2017 Status: COMPLETED Source: [place] 3:27 PM [facility] HNO ID: [id number] Author: Wu Elena Service: (none) Author Type: Physician Type: Progress Notes Filed: 10/14/2017 6:45 PM Note Text: Patient presents with: Blood Pressure Wants to go back on atenolol. Is on a much lower dose of beta kaila than when we first switched her due to manufacturing isseus. She basically wants back on atenolol which is now available again. Says she feels tired and has headaches. She states she was fine until that was changed No new chest pain No new shortness of breath. No new edema. Reviewed labs. Labs show hypercalcemia but she normally sees endo for the same regularly. She is not a surgical candidate. Component Latest Ref Rng AND Units 10/03/2017 10/07/2017 WBC 3.70 - 11.00 k/uL 8.05 RBC 3.90 - 5.20 m/uL 3.92 Hemoglobin 11.5 - 15.5 g/dL 12.2 Hematocrit 36.0 - 46.0 % 38.3 MCV 80.0 - 100.0 fL 97.7 MCH 26.0 - 34.0 pG 31.1 MCHC 30.5 - 36.0 g/dL 31.9 RDW-CV 11.5 - 15.0 % 13.7 Platelet Count 150 - 400 k/uL 240 MPV 9.0 - 12.7 fL 12.5 Neut% % 65.0 Abs Neut (ANC) 1.45 - 7.50 k/uL 5.23 Lymph% % 19.1 Abs Lymph 1.00 - 4.00 k/uL 1.54 Placer% % 9.7 Abs Placer <0.87 k/uL 0.78 Eosin% % 5.5 Abs Eosin <0.46 k/uL 0.44 Baso% % 0.7 Abs Baso <0.11 k/uL 0.06 Nucleated Reds 0 /100 WBC 0.0 Absolute nRBC <0.01 k/uL <0.01 Diff Type Auto Diff Protein, Total 6.3 - 8.0 g/dL 7.1 Albumin 3.9 - 4.9 g/dL 3.9 Calcium 8.5 - 10.2 mg/dL 10.8 (H) Bilirubin, Total 0.2 - 1.3 mg/dL 0.5 Alkaline Phosphatase 32 - 117 U/L 120 (H) AST 13 - 35 U/L 18 Glucose 74 - 99 mg/dL 94 BUN 7 - 21 mg/dL 15 Creatinine 0.58 - 0.96 mg/dL 1.17 (H) Sodium 136 - 144 mmol/L 143 Potassium 3.7 - 5.1 mmol/L 4.0 Chloride 97 - 105 mmol/L 103 CO2 22 - 30 mmol/L 29 Anion Gap 9 - 18 mmol/L 11 ALT 7 - 38 U/L 8 eGFR- 54 eGFR-All Other Races . 45 Ionized Calcium 1.08 - 1.30 mmol/L 1.43 (H) Normalized CAlcium 1.08 - 1.30 mmol/L 1.39 (H) NT Pro BNP <450 pg/mL 174 PTH, Intact 15 - 65 pg/mL 98 (H) Vitamin D 25 Hydroxy 31.0 - 80.0 ng/mL 38.6 MEDICATIONS: Current Outpatient Prescriptions: ELIQUIS 5 mg tab tab(s) TAKE 1 TABLET TWICE DAILY metoprolol succinate ER (TOPROL XL) 25 mg 24 hr tablet Take one tablet daily potassium chloride (KLOR-CON 10) 10 mEq tablet Take 1 tablet by mouth once daily. atorvastatin (LIPITOR) 10 mg tablet Take 1 tablet by mouth daily at bedtime. For cholesterol. levothyroxine (SYNTHROID) 100 mcg tablet Take 1 tablet by mouth once daily. Does not take on Saturday furosemide (LASIX) 20 mg tablet Take 1 tablet by mouth once daily. sertraline (ZOLOFT) 50 mg tablet Take 1 tablet by mouth once daily. polyethylene glycol 3350 (MIRALAX) 17 gram/dose powder One capful with 8 oz of water each day diltiazem CD (CARDIZEM CD) 120 mg 24 hr capsule Take 2 capsules by mouth once daily. (Patient taking differently: Take 120 mg by mouth twice daily. ) Cholecalciferol, Vitamin D3, 1,000 unit cap Take 1 capsule by mouth twice daily. aspirin, enteric coated (ASPIRIN, ENTERIC COATED) 81 mg EC tablet Take 81 mg by mouth once daily. nystatin (MYCOSTATIN) powder Apply 1 application to affected area four times daily. flecainide (TAMBOCOR) 50 mg tablet Take 2 tablets by mouth twice daily. Facial Mask misc To use with Oxygen.Hypoxia, rhinitis ketoconazole (NIZORAL) 2 % cream Apply to affected area sparingly twice daily for fungal rash hydrocortisone 2.5 % cream Apply 1 application to affected area twice daily. Location: under breasts and groin area fluticasone (FLONASE) 50 mcg/actuation nasal spray Use 1 [place] in each nostril daily at bedtime. before lying down. pantoprazole DR (PROTONIX) 40 mg tablet Take 1 tablet by mouth once daily. (Patient not taking: Reported on 10/14/2017 ) clobetasol (TEMOVATE) 0.05 % ointment Apply 1 application to affected area twice daily. apply as directed albuterol HFA (PROAIR HFA) 90 mcg/actuation inhaler Inhale 2 Puffs as instructed every 4 hours as needed for Wheezing/Shortness of Breath. hydrocortisone (PROCTOCORT) 1 % crea 1 application by RECTAL route twice daily as needed. No current facility-administered medications for this visit. ALLERGIES: ALLERGIES Allergen Reactions - Adhesive Tape (Lora* Other: See Comments skin thinning, peels - Altace [Ramipril] Cough see note 04/01/06 - Cozaar [Losartan Po* Cough sx began shortly after stopping BRII-I 04/14 - Irbesartan Other: See Comments headache, dizziness - Lipitor [Atorvastat* Elevated CK. - Lisinopril Cough see note 05/12/03 - Sulindac GI Upset - Tramadol Rash - Vesicare [Solifenac* Intolerance Patient had constipation; dry mouth; nausea PAST MEDICAL HISTORY Diagnosis Date - Adjustment disorder with depressed mood - Benign neoplasm of colon - Carotid stenosis recheck in 03/24 - Chronic kidney disease, stage III (moderate) - CVA (cerebral vascular accident) (HCC) - Dementia - Diverticulosis of colon (without mention of hemorrhage) - Essential hypertension, benign - Generalized osteoarthrosis, unspecified site - Gout - Headache(784.0) - Hyperparathyroidism (HCC) 2013 - Lymphomatoid papulosis (HCC) - Meningioma (HCC) - Obesity, unspecified - Other and unspecified hyperlipidemia - Unspecified hypothyroidism PAST SURGICAL HISTORY Procedure Laterality Date - COLONOSCOP W/ OR W/O [facility] SPEC 02/08/99 Colonoscopy - COLONOSCOP W/ OR W/O [facility] SPEC 07/12/2008 Colonoscopy - EGD 01/18/2017 - EGD W/O OR W/BRUSH/WASH 11/04/2012 EGD - EGD W/O OR W/BRUSH/WASH 01/18/2017 - INSER NON-TUNNEL CVC >= 5 YR 06/19/07 - LAP CHOLECYSTECT/CHOLANGIOGRAPHY 06/19/07 - LAPAROSCOPY, SURGICAL, APPENDECTOMY 06/19/07 - REPAIR INCIS HERNIA W MESH 11-18-12 - REPAIR INCISIONAL HERNIA,MATILDE 11-18-12 - TOTAL HIP REPLACEMENT Hip replacement, total, right - TOTAL KNEE REPLACEMENT Knee replacement, total, left and right - TOTAL KNEE REPLACEMENT 2014 Right FAMILY HISTORY Problem Relation Age of Onset - tia [OTHER] Father - chf [OTHER] Mother - mi [OTHER] Maternal Grandfather - chf [OTHER] Maternal Grandmother - nonhodgkins lymphoma [OTHER] Daughter - Prostate Cancer Brother Social History Marital status: Spouse name: Mitra Years of education: Number of children: 3 Occupational History Occupation Employer Comment [employer]* Social History Main Topics Smoking status: Never Smoker Smokeless status: Never Used Alcohol use: Yes Comment: socially Drug use: No Reviewed current medications, allergies, past medical history, surgical history, family history and social history today. REVIEW OF SYSTEMS All other reviewed and negative other than HPI. HEALTH MAINTENANCE: Reviewed health maintenance issues today and recommended the following in detail. There are no preventive care reminders to display for this patient. VITALS: BP 132/62 Pulse (!) 56 Resp 14 Last 4 Encounter Wt Readings: Date: Wt: 10/03/2017 83.5 kg (184 lb) 04/18/2017 85.7 kg (189 lb) 04/11/2017 88 kg (194 lb) 03/29/2017 87.2 kg (192 lb 3.2 oz) PHYSICAL EXAMINATION: General appearance: alert Skin: Skin color, texture, turgor normal, no suspicious rashes or lesions Lungs: Lungs clear to auscultation. No wheezing, rhonchi, rales Heart: RRR without murmur, gallop, or rubs. No ectopy Abdomen: Normal abdominal exam, Abdomen soft, non-tender. Bowel sounds normal. No masses, organomegaly Extremities: No deformities, edema, skin discoloration, clubbing or cyanosis. Good capillary refill. ASSESSMENT/PLAN: 1. Paroxysmal atrial fibrillation (HCC) - ICD9: 427.31, ICD10: I48.0 (primary diagnosis) - stop metoprolol. Start atenol at a lower dose that what she used to take. She is to check pulse and bp daily and call results on Saturday. Call if any issues. Will let cardiology know. - ATENOLOL 25 MG TABLET - DILTIAZEM SR 120 MG 24 HR CAP 2. Hyperparathyroidism (HCC) - ICD9: 252.00, ICD10: E21.3 - continue to see Dr. Santillan 3. Hypothyroidism, unspecified type - ICD9: 244.9, ICD10: E03.9 - Instructed patient on importance of taking on an empty stomach either first thing in the morning or at bedtime. 4. Chronic kidney disease, stage III (moderate) - ICD9: 585.3, ICD10: N18.3 5. Essential hypertension, benign - ICD9: 401.1, ICD10: I10 - good control - Goal of BP <140/90 - ATENOLOL 25 MG TABLET - DILTIAZEM SR 120 MG 24 HR CAP Wu Elena MD RTO in one month and prn. CALCIUM, IONIZED Collected: 10/07/2017 Status: F Source: [place] 11:14 AM [facility] REPOSITORY TYPE CODE TESTS RESULT OUT OF REFERENCE UNITS RANGE LAB ICAL 1.08-1.30 mmol/L Calcium, High Ionized 1.43 LAB NCA 1.08-1.30 mmol/L Calcium, High Normalized 1.39 Performed By: #### ICA, PTHI, VITD #### [facility] [address] [place], [place] [address] PTH, INTACT Collected: 10/07/2017 Status: F Source: [place] 11:14 AM [facility] REPOSITORY TYPE CODE TESTS RESULT OUT OF REFERENCE UNITS RANGE LAB PTH 15-65 pg/mL High PTH, Intact 98 Performed By: #### ICA, PTHI, VITD #### [facility] [address] [place], [place] [address] VITAMIN D 25 HYDROXY Collected: 10/07/2017 Status: F Source: [place] 11:14 AM [facility] REPOSITORY TYPE CODE TESTS RESULT OUT OF REFERENCE UNITS RANGE LAB VITD 31.0-80.0 ng/mL Vitamin D 25 38.6 Hydroxy Result Comment: Classification of 25 [place] Vitamin D status: Insufficiency/Moderate Deficiency: < or = 30 ng/mL Sufficiency/Optimal Levels: 31 to 80 ng/mL Toxicity: > 100 ng/mL Test performed by chemiluminescent immunoassay. Performed By: #### ICA, PTHI, VITD #### [facility] [address] [place], [place] [address] ALLERGIES ALLERGIES DATE TYPE / NAME / CODE REACTION SEVERITY SOURCE CODE 07/24/2018 Drug losartan Other Unknown [place] Allergy/41 potassium/[id number] [facility] [id number]([facility](RXNORM) [facility]) Repository 07/24/2018 Drug lisinopril/[id number] Other Unknown [place] Allergy/41 658(RXNORM) [facility] 3939459([facility]) Repository 07/24/2018 Drug sulindac/[id number] Unknown Unknown [place] Allergy/41 6(RXNORM) [facility] 3117031([facility]) Repository 07/24/2018 Drug adhesive/[id number] Rash Unknown [place] Allergy/41 5(RXNORM) [facility] 4583223([facility]) Repository 07/24/2018 Drug ramipril/[id number] Other Unknown [place] Allergy/41 5(RXNORM) [facility] 3895564([facility]) Repository 07/24/2018 Drug metoprolol/[id number] gi upset Unknown [place] Allergy/41 627(RXNORM) [facility] 0029477([facility]) Repository 07/24/2018 Drug tramadol/[id number] Unknown Unknown [place] Allergy/41 0(RXNORM) [facility] 6586488([facility]) Repository 07/24/2018 Drug atorvastatin/F0060 Unknown Unknown [place] Allergy/41 67984(RXNORM) [facility] 6206145([facility]) Repository 07/24/2018 Drug irbesartan/[id number] Unknown Unknown [place] Allergy/41 921(RXNORM) [facility] 0248753([facility]) Repository 07/24/2018 Drug solifenacin/V15758 Unknown Unknown [place] Allergy/41 8712(RXNORM) [facility] 7632496( Hospital OMED CT) Repository 04/16/2013 DRUG IRBESARTAN OTHER: SEE C [facility] INGREDI/[address] [place] 7997638(SN Repository OMED CT) 07/04/2011 DRUG TRAMADOL RASH [facility] INGREDI/[address] [place] 2663327(SN Repository OMED CT) 02/21/2011 Chemical/4 ADHESIVE TAPE OTHER: SEE C [facility] [id number](S (ROSINS) [place] NOMED CT) Repository 10/05/2010 DRUG SOLIFENACIN INTOLERANCE [facility] INGREDI/41 SUCCINATE [place] 3612161(SN Repository OMED CT) 11/09/2009 DRUG SULINDAC GI UPSET [facility] INGREDI/41 [place] 1224074(SN Repository OMED CT) 03/28/2009 [facility] [place] 4066375(SN Repository OMED CT) 05/06/2006 DRUG LOSARTAN POTASSIUM COUGH [facility] INGREDI/ [place] 2734416(SN Repository OMED CT) 04/01/2006 DRUG RAMIPRIL COUGH [facility] INGREDI/ [place] 3868928(SN Repository OMED CT) 11/29/2005 DRUG L[facility]INOPRIL COUGH [facility] [place] 4918767(SN Repository OMED CT) ENCOUNTERS ENCOUNTERS ADMIT/DISCHARGE ACCOUNT NUMBER ADMITTING ENCOUNTER LOCATION SOURCE CLASS 09/30/2018 [id number] Ambulatory [facility] ding:OPBI Repository 07/24/2018/07/24/20 [id number] Ambulatory BMSBuilding: [place] Repository 07/11/2018/07/14/20 [id number] Ambulatory [address] [place] Repository 07/07/2018 [id number] Ambulatory [facility] ding:LAB Repository 05/22/2018/05/22/20 [id number] Ambulatory [address] [place] Repository 05/21/2018/05/22/20 [id number] Ambulatory [address] [place] Repository 05/06/2018 [id number] Ambulatory BMSBuilding: [place] [facility] Repository 05/06/2018 [id number] Ambulatory [facility] ding:PSN Repository 04/30/2018 [id number] Ambulatory ABuilding:IN [facility] Repository 04/22/2018/04/22/20 [id number] Ambulatory AULTMANBuild Ricardo 18 ing:[facility] Repository 04/17/2018/04/17/20 [id number] Ambulatory BMSBuilding: [place] 18 BMS.[facility] Repository 04/17/2018/04/17/20 [id number] Ambulatory BMSBuilding: [place] 18 BMS.[facility] Repository 04/15/2018 [id number] Ambulatory BMSBuilding: [place] BMS.[facility] Repository 03/27/2018/03/27/20 [id number] Ambulatory AULTMANBuild [place] 18 ing:[facility] Repository 03/24/2018/03/24/20 [id number] Emergency [address] ding:ED Repository 03/20/2018 [id number] Ambulatory [facility] ding:OPBD Repository 03/06/2018 [id number] Ambulatory BMSBuilding: [facility] Repository 03/06/2018 [id number] Ambulatory BMSBuilding: [facility] Repository 03/06/2018 [id number] Ambulatory [facility] ding:PSN Repository 02/04/2018 [id number] Ambulatory [address] [place] [address] Repository 02/04/2018 [id number] Ambulatory [address] [place] [address] Repository 01/21/2018/01/22/20 [id number] Ambulatory BMSBuilding: [place] 18 BMS.[facility] Repository 01/17/2018 [id number] Ambulatory [facility] ding:RAD Repository 01/17/2018/02/01/20 [id number] Ambulatory [address] Repository 01/17/2018/01/18/20 [id number] Ambulatory [address] Repository 01/17/2018/01/21/20 [id number] Ambulatory [address] Repository 01/13/2018/01/15/20 [id number] Ambulatory [address] Repository 01/03/2018 [id number] Ambulatory [facility] ding:LAB Repository 12/06/2017/12/07/19 [id number] Ambulatory [address] Repository 12/04/2017/12/06/19 [id number] Ambulatory [address] Repository 11/23/2017/11/26/19 [id number] Ambulatory [address] Repository 10/14/2017/10/14/19 [id number] Ambulatory [address] Repository 10/07/2017/10/07/[id number] Repository PAYERS PAYERS ENCOUNTER GUARANTOR PAYER SUBSCRIBER SOURCE 09/30/2018 MITRA [id number] Insurance:LINDA [facility] [id number] Number: Repository [address]Zdz: 330 [id number] [phone] () Date:7773-50-24BX [address] [place] [address]JC: 09/30/2018 Secondary NOT GIVENUNK [place] Insurance:SELF PAY [facility] Number: Effective Repository Date:2018-08-08 07/24/2018 MITRA Guerrero [id number] Insurance:LINDA [facility]OB: [facility] [id number]. [facility] Number: Repository [id number]: 330 [id number] [phone] () Date:4253-19-18NU [address] [address]RF: 07/24/2018 Secondary NOT GIVENUNK [place] Insurance:SELF PAY [facility] Number: Effective Repository Date:2018-07-23 07/07/2018 MITRA MADERA Naomi [place] [id number] Insurance:LINDA [facility]ITRICKNCOB: [facility] [id number]. Rita's Hospital Number: Repository [id number]: (330 [id number] [phone] () Date:2464-70-18ZS [facility] [address] [place] [address]WZ: 07/07/2018 Secondary NOT GIVENUNK [place] Insurance:SELF PAY [facility] Number: Effective Repository Date:2018-07-07 05/06/2018 Mitra B Primary KALINA Salgado [id number] Insurance:LINDA HENDRICKSDOB: [facility] HEALTH PLAN [id number] [facility] Number: Repository [address]Xro: 330 [id number] [phone] () Date:5333-68-41SP [facility] [address] [place] [address]DZ: 05/06/2018 Secondary NOT GIVENUNK [place] Insurance:SELF PAY [facility] Number: Effective Repository Date:2018-05-06 05/06/2018 Mitra B Primary KALINA Salgado [facility] [id number] Insurance:LINDA HENDRICKSDOB: [facility] HEALTH [facility] [id number] J. Carter Specialty Hospital and Nursing FacilityOPolunitypoint [facility] Number: Repository [id number]: 330 [id number] [phone] () Date:5933-13-62AB [facility] [address] [place] [address]KC: 05/06/2018 Secondary NOT GIVENUNK [place] Insurance:SELF PAY [facility] Number: Effective Repository Date:2018-04-17 04/30/2018 [facility] Primary KALINA Salgado [facility]SD[facility]: Insurance:PRIME TIME HENDRICKSDOB: [facility] HEALTH ([place])Policy [id number] Repository [facility] Number: [address] [place], [place] [id number] [place], [place] [address]Efq: (330) Date:2018-04-17 91254Cer: [id number] [phone] ()Tel: ([phone]) Name:[address] () [address], [place] [phone] () [address]WL: 04/22/2018 KALINA Salgado Primary KALINA Salgado [facility] HospitalRICKSDOB: Insurance:PRIME TIME HENDRICKSDOB: [facility] HEALTH ([place])Policy [id number] Repository [facility] Number: [address] [place], [place] [id number] [place], [place] [address]Qxt: ([phone]) Date:2018-04-22 70[address]Nrj: [id number] [phone] ()Tel: ([phone]) Name:[address] () [address], [place] [phone] (WP) [address]GL: 04/17/2018 Mitra Sanchez Primary KALINA CurtisBl[facility] Medical [id number] Insurance:LINDA [facility]SDOB: [facility] HEALTH PLAN [id number] J. Carter Specialty Hospital and Nursing FacilityOPolunitypoint [facility] Number: Repository [id number]: 330 [id number] [phone] () Date:3840-39-65HW [address] [address]OC: 04/17/2018 Secondary NOT GIVENUNK [place] Insurance:SELF PAY [facility] Number: Effective Repository Date:2018-04-17 04/17/2018 Mitra Sanchez Primary KALINA CurtisBluffton Regional Medical [id number] Insurance:LINDA [facility]ITRICKSDOB: [facility] HEALTH [facility] [id number] J. Carter Specialty Hospital and Nursing FacilityOPolunitypoint health[facility] Number: Repository [id number]: 330 [id number] [phone] () Date:3921-05-42HA [address] [address]ZD: 04/17/2018 Secondary NOT GIVENUNK [place] Insurance:SELF PAY [facility] Number: Effective Repository Date:2018-04-10 04/15/2018 Mitra B Primary KALINA Guerrero [id number] Insurance:LINDA HENDRICKSDOB: [facility] HEALTH PLAN [id number], [place] HMOPolunitypoint health-[facility] Number: Repository [address]Udk: 330 [id number] [phone] (HP) Date:4613-07-23KM [address] [address]MJ: 04/15/2018 Secondary NOT GIVENUNK [place] Insurance:SELF PAY [facility] Number: Effective Repository Date:2018-04-15 03/27/2018 KALINA Salgado Primary KALINA Salgado [facility] HENDRICKSDOB: Insurance:PRIME TIME HENDRICKSDOB: [facility] [id number] HEALTH ([place])Policy [id number] [facility] Number: [address] [place], [place] [id number] [place], [place] [address]Cno: 330) Date:2017-09-09 32327Axv: 6948-09-51Hgvs [phone] (HP)Tel: ([phone]) Name:NPO AKI () () [address], [place] [phone] () [address]ZX: 03/24/2018 Mitra Sanchez Primary KALINA Guerrero [id number] Insurance:LINDA BEATRIZRICKSDOB: [facility] [id number] J. Carter Specialty Hospital and Nursing FacilityOPolunitypoint health[facility] Number: Repository [id number]: 330 [id number] [phone] (HP) Date:7225-75-51YV [address] [address]MK: 03/24/2018 Secondary NOT GIVENUNK [place] Insurance:SELF PAY [facility] Number: Effective Repository Date:2018-03-24 03/20/2018 Mitra Sanchez Primary KALINA Guerrero [id number] Insurance:LINDA HENDRICKSDOB: [facility] Center[facility] [id number] Healthcare System [facility] Number: Repository [address]Ooh: 330 [id number] [phone] (HP) Date:6817-96-83QQ [address] [address]MO: 03/20/2018 Secondary NOT GIVENUNK [place] Insurance:SELF PAY [facility] Number: Effective Repository Date:2018-02-17 03/06/2018 Mitra B Primary KALINA Guerrero [id number] Insurance:LINDA HENDRICKSDOB: [facility] [id number] Healthcare System [facility] Number: Repository [id number]: (330 [id number] [phone] (HP) Date:1443-93-12KE [address] [address]UB: 03/06/2018 Secondary NOT GIVENUNK [place] Insurance:SELF PAY [facility] Number: Effective Repository Date:2018-03-06 03/06/2018 Mitra B Primary KALINA Guerrero [id number] Insurance:LINDA HENDRICKSDOB: [facility] [id number] Healthcare System [facility] Number: Repository [id number]: (330 [id number] [phone] (HP) Date:3020-45-12LM [address] [address]IT: 03/06/2018 Secondary NOT GIVENUNK [place] Insurance:SELF PAY [facility] Number: Effective Repository Date:2018-03-06 03/06/2018 Mitra B Primary KALINA Guerrero [id number] Insurance:LINDA HENDRICKSDOB: [facility] [id number] Healthcare System [facility] Number: Repository [address]Vas: 330 [id number] [phone] (HP) Date:7487-26-57US [address] [address]HN: 03/06/2018 Secondary NOT GIVENUNK [place] Insurance:SELF PAY [facility] Number: Effective Repository Date:2018-01-21 02/04/2018 Count includes the [facility] AKUASDOB: Insurance:Medicare [facility]IT[facility]ICKSDOB: [facility] Number: [id number] Repository MARTINEZ STAPPLE [id number] [address] [place], [place] Date:5811-95-14Hfxe [place] [phone]: Name:[facility] [id number]: [address] [place] [address] () [phone]: [phone]) () [phone] 02/04/2018 Critical access hospitalJOANSDOB: Insurance:Medicare [facility]ITRICKSDOB: [facility] Number: [id number] Repository MARTINEZ STAPPLE [id number] [address] [place], [place] Date:2494-73-48Vkkb [place] [id number]: Name:[facility] [id number]: [address], [place] (HP) [phone]: [phone]) (HP) [phone] 01/21/2018 Mitra [facility] KALINA Guerrero [id number] Insurance:LINDA HENDRICKSDOB: [facility] StApple [facility] HEALTH PLAN [id number] Healthcare [facility] Number: Repository [address]Ohm: 330 [id number] [phone] (HP) Date:2417-71-69IM [address] [place] [address]XR: 01/21/2018 Secondary NOT GIVENUNK [place] Insurance:SELF PAY [facility] Number: Effective Repository Date:2018-01-21 01/17/2018 [facility] KALINA Salgado [place] [id number] Insurance:LINDA HENDRICKSDOB: [facility] HEALTH PLAN [id number] [facility] Hospital[facility]: Repository [id number]: [phone] [id number] [phone] () Date:[id number] [address] [address]DW: 01/17/2018 Secondary NOT GIVENUNK [place] Insurance:SELF PAY [facility] Number: Effective Repository Date:2018-01-17 01/03/2018 Mitra [id number] Insurance:LINDA FOSTEROB: [facility] [id number] HMOPolicy Number: Repository [id number]: [phone] [id number] [phone] () Date:[id number] [facility] [address] [address]SF: 01/03/2018 Secondary NOT GIVENUNK [place] Insurance:SELF PAY [facility] Number: Effective Repository Date:2018-01-03
== END ==
PROVIDERS: Family Provider Family Medicine; PCP Family Medicine; Visit Provider Obstetrics & Gynecology
DX: Z12.31 Encounter for screening mammogram for malignant neoplasm of breast (principal)
CPT/HCPCS: 77063; 77067

== ENCOUNTER → 2018-12-26 | Outpatient (CLI) | payer MEDICARE, SELFPAY ==
[2018-07-24 14:31] VITALS: BMI 36.9
[2018-12-26 08:53] LABS: Anion Gap 3 (5-15); BUN 23 mg/dL (7-18); BUN/Creat Ratio 21.7 RATIO (10-20); Calcium,Total 10.2 mg/dL (8.5-10.1); Chloride 110 mmol/L (98-107); Creatinine, Serum 1.06 mg/dL (0.55-1.02); EST Glomerular Filtration Rate 53 mL/min (>60); Est Glom Filt Rate - Afr Amer 64 mL/min (>60); Glucose 87 mg/dL (74-106); Potassium 3.9 mmol/L (3.5-5.1); Sodium Level 142 mmol/L (136-145); T4 Free Direct 1.42 ng/dL (0.76-1.46); Thyroid Stim Hormone (TSH) 0.54 uIU/mL (0.358-3.74)
[2018-12-26 08:55] LABS: Vitamin D,25 Hydroxy 20.4 ng/mL (29.95-100.01)
[2018-12-26 08:56] LABS: PTHIN 176.5 pg/mL (18.4-80.1)
== END | disposition home or self-care (01) ==
PROVIDERS: Family Provider Family Medicine; PCP Family Medicine; Referring Provider Internal Medicine Endocrinology, Diabetes & Metabolism; Visit Provider Internal Medicine Endocrinology, Diabetes & Metabolism
DX: E55.9 Vitamin D deficiency, unspecified (principal); E21.0 Primary hyperparathyroidism; E03.9 Hypothyroidism, unspecified
CPT/HCPCS: 36415; 80048; 82306; 82330; 83970; 84439; 84443

== ENCOUNTER → 2019-02-06 | Outpatient (CLI) | payer MEDICARE, SELFPAY ==
[2019-01-02 13:58] VITALS: BMI 36.3
--- NOTE | 2019-02-06 09:21 | STE_ITS ---
Reason For Study: Paroxysmal Atrial Fibrillation Stress Results Maximum Predicted HR: 140 bpm Target HR: 119 bpm % Maximum Predicted HR: 87 % DurationHeart Rate Stage (mm:ss) (bpm) BP Dose Baseline 61 126/62 10 mcg 3:00 60 141/6510.00 20 mcg 3:00 85 151/5820.00 30 mcg 3:00 116 153/4230.00 40 mcg 2:04 122 132/8540.00 Recovery 86 138/72 Stress Duration: 11:04 mm:ss Maximum Stress HR: 122 bpm Baseline Echocardiogram Findings The estimated ejection fraction is 65 %. Stress Echo Wall motion Data Resting WM Intermediate WM Stress WM Resting Wall Motion Wall Motion Stress No regional wall motion No regional wall motion abnormalities noted. abnormalities noted. EKG Data The baseline ECG displays normal sinus rhythm. The patient was titrated from 10 mcg to a maximum of 40 mcg of dobutamine during the stress. The maximum heart rate attained was 148 beats per minute. This was 105% of maximum predicted heart rate. During dobutamine infusion, there were no ST or T wave changes noted to suggest ischemia. No clinical angina was noted. Interpretation Summary The estimated ejection fraction is 65 %. Normal, adequate, dobutamine echocardiogram. Negative for ischemia by EKG and echocardiographic criteria. No anginal symptoms noted. No arrhythmias noted. Appropriate blood pressure response to dobutamine. Test terminated due to the attainment of target heart rate. Final LVEF of 75%. No complications. Ordering Physician: Prakash Cordova Referring Physician: Prakash Cordova Performed By: Danielle Enciso, CLAYTON, RVT
== END | disposition home or self-care (01) ==
LOC: CVS 09:20
PROVIDERS: Family Provider Family Medicine; PCP Family Medicine; Referring Provider Internal Medicine Cardiovascular Disease; Visit Provider Internal Medicine Cardiovascular Disease
DX: I50.32 Chronic diastolic (congestive) heart failure (principal); I48.0 Paroxysmal atrial fibrillation
CPT/HCPCS: 93017; 93350; J7040; Q9957; A4216

== ENCOUNTER → 2019-02-19 | Outpatient (CLI) | payer MEDICARE, SELFPAY ==
[2019-02-12 14:25] VITALS: BMI 37.0
[2019-02-19 10:17] LABS: AST(SGOT) 15 U/L (15-37); Alanine Aminotransfer ALT/SGPT 15 U/L (13-56); Albumin, Serum 3.4 g/dL (3.2-5.0); Alkaline Phosphatase 87 U/L (45-117); Bilirubin, Direct 0.22 mg/dL (0.00-0.30); Cholesterol 161 mg/dL (200); Globulin 3.8 g/dL (2.2-4.2); High Density Lipoprotein 61 mg/dL; Protein, Total 7.2 g/dL (6.4-8.2); Triglycerides 88 mg/dL; Very Low Density Lipoprotein 18 mg/dL (5-40)
== END | disposition home or self-care (01) ==
LOC: LAB 08:15
PROVIDERS: Family Provider Family Medicine; PCP Family Medicine; Referring Provider Internal Medicine Cardiovascular Disease; Visit Provider Internal Medicine Cardiovascular Disease
DX: E78.5 Hyperlipidemia, unspecified (principal)
CPT/HCPCS: 36415; 80061; 80076

== ENCOUNTER → 2019-05-08 | Outpatient (CLI) | payer MEDICARE, SELFPAY ==
[2019-02-12 14:25] VITALS: BMI 37.0
== END | disposition home or self-care (01) ==
LOC: LABSPEC 15:41
PROVIDERS: Family Provider Family Medicine; PCP Family Medicine; Referring Provider Otolaryngology Otolaryngology/Facial Plastic Surgery; Visit Provider Otolaryngology Otolaryngology/Facial Plastic Surgery
DX: J34.89 Other specified disorders of nose and nasal sinuses (principal)
CPT/HCPCS: 87070; 87205

== ENCOUNTER → 2019-07-06 | Outpatient (CLI) | payer MEDICARE, SELFPAY ==
[2019-02-12 14:25] VITALS: BMI 37.0
[2019-07-06 09:45] LABS: Vitamin D,25 Hydroxy 31.6 ng/mL (29.95-100.01)
[2019-07-06 09:47] LABS: PTHIN 205.6 pg/mL (18.4-80.1)
[2019-07-06 09:48] LABS: Anion Gap 5 (5-15); BUN 23 mg/dL (7-18); BUN/Creat Ratio 19.3 RATIO (10-20); Calcium,Total 10.2 mg/dL (8.5-10.1); Chloride 106 mmol/L (98-107); Creatinine, Serum 1.19 mg/dL (0.55-1.02); EST Glomerular Filtration Rate 46 mL/min (>60); Est Glom Filt Rate - Afr Amer 56 mL/min (>60); Glucose 92 mg/dL (74-106); Potassium 3.6 mmol/L (3.5-5.1); Sodium Level 142 mmol/L (136-145); T4 Free Direct 1.37 ng/dL (0.76-1.46); Thyroid Stim Hormone (TSH) 0.69 uIU/mL (0.358-3.74)
== END | disposition home or self-care (01) ==
LOC: LAB 08:38
PROVIDERS: Family Provider Family Medicine; PCP Family Medicine; Referring Provider Internal Medicine Endocrinology, Diabetes & Metabolism; Visit Provider Internal Medicine Endocrinology, Diabetes & Metabolism
DX: E21.0 Primary hyperparathyroidism (principal); E03.9 Hypothyroidism, unspecified; E55.9 Vitamin D deficiency, unspecified
CPT/HCPCS: 36415; 80048; 82306; 82330; 83970; 84439; 84443

== ENCOUNTER → 2019-08-14 12:51 | Outpatient (CLI) | payer MEDICARE, SELFPAY ==
[2019-07-27 11:03] VITALS: BMI 37.1
--- NOTE | 2019-08-14 12:52 | ECHOCS_ITS ---
Reason For Study: AFib/Flutter Procedure This was a 2D Doppler, Color Flow transthoracic echocardiogram. The study was technically difficult. Contrast injection was performed. Exam performed in department. Left Ventricle Normal size and thickness. The estimated ejection fraction is 65 %. Stage 2 diastolic dysfunction. No regional wall motion abnormalities noted. Right Ventricle Normal size and thickness. Normal systolic function. Atria The left atrium is mildly enlarged. Normal right atrium. Normal atrial septum. Bubble contrast study negative for right to left interatrial shunt. Mitral Valve Mild diffuse mitral valve thickening. Mild mitral annular calcification extending into the posterior leaflet. Tricuspid Valve Normal tricuspid valve. Mild (1+) tricuspid valve insufficiency. Right ventricular systolic pressure estimated to be 29 mmHg. Aortic Valve Trisinus/trileaflet aortic valve. Mild focal aortic valve thickening. Pulmonic Valve Normal pulmonic valve. Trivial pulmonic valve insufficiency. Great Vessels Normal aortic root. Normal arch. Normal inferior vena cava. Inferior vena cava collapse with sniff. Pericardium/Pleural No pericardial effusion. Medication 22 gauge I.V. with prn adaptor inserted into right arm. Diluted definity 3ml given slow IV push to enhance endocardial definition. Performed a rapid injection of agitated mix of 9 cc saline and 1cc air to assess for atrial septal defect. MMode/2D Measurements & Calculations LVIDd: 3.4 cm IVSd: 1.00 cm Ao root diam: 3.6 cm LVIDs: 2.3 cm LVPWd: 0.91 cm LA dimension: 3.9 cm FS: 30.9 % LAV(MOD-sp4): 79.7 ml LA A4 area: 24.6 cm2 RA A4 area: 15.5 cm2 Time Measurements MV dec time: 0.25 sec Doppler Measurements & Calculations MV E max rl: 99.0 cm/sec MV V2 max: 110.7 cm/sec MV P1/2t max rl: 107.9 cm/sec MV A max rl: 45.1 cm/sec MV max P.9 mmHg MV P1/2t: 132.2 msec MV E/A: 2.2 MV V2 mean: 62.5 cm/sec MV dec slope: 239.0 cm/sec2 MV mean P.8 mmHg MV V2 VTI: 38.6 cm MVA(P1/2t): 1.7 cm2 Ao V2 max: 104.9 cm/sec LV V1 max: 100.3 cm/sec PA V2 max: 103.0 cm/sec Ao max P.4 mmHg LV V1 max P.0 mmHg Ao V2 mean: 71.2 cm/sec LV V1 mean P.9 mmHg Ao mean P.3 mmHg LV V1 mean: 64.7 cm/sec Ao V2 VTI: 24.0 cm LV V1 VTI: 21.6 cm TR max rl: 247.0 cm/sec TR max P.4 mmHg Interpretation Summary The estimated ejection fraction is 65 %. Stage 2 diastolic dysfunction. The left atrium is mildly enlarged. Bubble contrast study negative for right to left interatrial shunt. Mild (1+) tricuspid valve insufficiency. Right ventricular systolic pressure estimated to be 29 mmHg. Compared to echo report dated 01/14/2017, no appreciable changes noted. Ordering Physician: Prakash Cordova Referring Physician: Prakash Cordova Performed By: Markus Palacio RCS
== END ==
PROVIDERS: Family Provider Family Medicine; PCP Family Medicine; Referring Provider Internal Medicine Cardiovascular Disease; Visit Provider Internal Medicine Cardiovascular Disease
DX: G47.33 Obstructive sleep apnea (adult) (pediatric) (principal)
CPT/HCPCS: 93306; Q9957; A4216; C8929

== ENCOUNTER → 2019-10-01 10:24 | Outpatient (CLI) | payer MEDICARE, SELFPAY ==
[2019-07-27 11:03] VITALS: BMI 37.1
--- NOTE | 2019-10-01 10:30 | BI_ITS ---
MAMMOGRAPHY - BILATERAL SCREENING REASON FOR EXAM: Female, 79 years old. Routine annual screening examination. PERTINENT HISTORY: Non-contributory. TECHNIQUE: Digital bilateral breast debbie (3D mammographic acquisition) in the CC and MLO projections. 2-D mediolateral oblique (MLO) and craniocaudad (CC) views of both breasts were obtained. CAD: Full Field Digital Mammography with Computer Added Detection was performed. COMPARISON: Comparison is made with prior examination dated September 30, 2018 and September 13, 2017. FINDINGS: Breast Composition: There are scattered areas of fibroglandular density. There are no dominant masses or suspicious calcifications. The right breast is smaller than the left. This is unchanged. No other significant abnormalities are identified. There has been no significant change since the prior study. BI/SCREEN MAMM (CAD) W/DEBBIE BILAT IMPRESSION: Stable bilateral screening mammogram. Yearly follow-up mammogram recommended. (A) ASSESSMENT CATEGORY: BIRADS Category 2: Benign. A letter regarding these results will be sent to the patient by the facility within 30 days. Approximately 10% of breast cancers are not detected by mammography. A normal mammogram should not delay biopsy of a clinically suspicious abnormality. [id number] Electronically Signed: Bharath Barclay, at 13:39 EST , Service support ,
== END ==
PROVIDERS: Family Provider Family Medicine; PCP Family Medicine; Referring Provider Obstetrics & Gynecology; Visit Provider Obstetrics & Gynecology
DX: Z12.31 Encounter for screening mammogram for malignant neoplasm of breast (principal)
CPT/HCPCS: 77063; 77067

== ENCOUNTER → 2019-10-21 15:20 | Outpatient (CLI) | payer MEDICARE, SELFPAY ==
[2019-07-27 11:03] VITALS: BMI 37.1
[2019-10-21 18:31] LABS: Absolute Lymphocyte Count 2.39 X10^3/uL (0.83-4.51); Absolute Neutrophil Count 7.5 X10^3/uL (2.0-7.7); Basophil# 0.09 X10^3/uL; Basophil% 0.8 % (0-1); Eosinophil# 0.25 X10^3/uL; Eosinophils% 2.2 % (0-5); Hematocrit 40.9 % (37-47); Hemoglobin 13.1 g/dL (12.0-15.0); Lymphocyte # 2.39 X10^3/ul (4.0); Lymphocyte % 21.2 % (19-41); Mean Corpuscular Hgb 30.5 pg (27.0-32.0); Mean Corpuscular Volume 95.3 fL (81-99); Mean Platelet Vol. 11.3 fl (6.2-12.0); Monocyte# 0.99 X10^3/uL; Monocyte% 8.8 % (0-10); NRBC Flagged by Analyzer 0 % (0-5); Neutrophil # 7.49 X10^3/uL (2.7-7.7); Neutrophil % 66.6 % (47-70); Platelet Count 225 K/mm3 (150-450); RBC Distribution Width CV 13.4 % (11.6-14.6); RBC Distribution Width SD 47.5 fl (35.1-43.9); Red Blood Count 4.29 M/mm3 (4.2-5.4); White Blood Count 11.3 K/mm3 (4.4-11.0)
[2019-10-21 19:03] LABS: ALB/GLOB Ratio 0.9 RATIO (0.9-2.4); AST(SGOT) 15 U/L (15-37); Alanine Aminotransfer ALT/SGPT 19 U/L (13-56); Albumin, Serum 3.6 g/dL (3.2-5.0); Alkaline Phosphatase 73 U/L (45-117); Anion Gap 6 (5-15); BUN 23 mg/dL (7-18); BUN/Creat Ratio 19.2 RATIO (10-20); Calcium,Total 10.8 mg/dL (8.5-10.1); Chloride 108 mmol/L (98-107); EST Glomerular Filtration Rate 46 mL/min (>60); Est Glom Filt Rate - Afr Amer 55 mL/min (>60); Globulin 3.8 g/dL (2.2-4.2); Glucose 99 mg/dL (74-106); Potassium 3.9 mmol/L (3.5-5.1); Protein, Total 7.4 g/dL (6.4-8.2); Sodium Level 140 mmol/L (136-145); Thyroid Stim Hormone (TSH) 0.95 uIU/mL (0.358-3.74)
== END ==
PROVIDERS: PCP Family Medicine Geriatric Medicine; Referring Provider Family Medicine Geriatric Medicine; Visit Provider Family Medicine Geriatric Medicine
DX: R53.83 Other fatigue (principal)
CPT/HCPCS: 36415; 80053; 84443; 85025

== ENCOUNTER → 2019-10-22 16:13 | Outpatient (CLI) | payer MEDICARE, SELFPAY ==
[2019-07-27 11:03] VITALS: BMI 37.1
[2019-10-22 17:37] LABS: Erythrocyte Sedimentation Rate 9 mm/hr (0-30)
[2019-10-22 17:50] LABS: Uric Acid 9.3 mg/dL (2.6-6.0)
== END ==
PROVIDERS: PCP Family Medicine Geriatric Medicine; Visit Provider Family Medicine Geriatric Medicine
DX: R79.9 Abnormal finding of blood chemistry, unspecified (principal)
CPT/HCPCS: 36415; 84550; 85652; 86140

== ENCOUNTER → 2019-10-23 12:16 | Outpatient (CLI) | payer MEDICARE, SELFPAY ==
[2019-07-27 11:03] VITALS: BMI 37.1
== END ==
PROVIDERS: PCP Family Medicine Geriatric Medicine; Referring Provider Family Medicine Geriatric Medicine; Visit Provider Family Medicine Geriatric Medicine
DX: R06.02 Shortness of breath (principal)

== ENCOUNTER → 2019-12-01 07:57 | Outpatient (CLI) | payer MEDICARE, SELFPAY ==
[2019-11-20 14:07] VITALS: BMI 35.5
[2019-12-01 09:05] LABS: Anion Gap 5 (5-15); BUN 23 mg/dL (7-18); BUN/Creat Ratio 19.5 RATIO (10-20); Calcium,Total 10.4 mg/dL (8.5-10.1); Chloride 108 mmol/L (98-107); Creatinine, Serum 1.18 mg/dL (0.55-1.02); EST Glomerular Filtration Rate 47 mL/min (>60); Est Glom Filt Rate - Afr Amer 56 mL/min (>60); Glucose 96 mg/dL (74-106); Sodium Level 142 mmol/L (136-145)
== END ==
PROVIDERS: PCP Family Medicine Geriatric Medicine; Referring Provider Psychiatry & Neurology Neurology; Visit Provider Psychiatry & Neurology Neurology
DX: I69.30 Unspecified sequelae of cerebral infarction (principal)
CPT/HCPCS: 36415; 80048

== ENCOUNTER 2019-12-05 10:35 | Emergency (ER) | payer MEDICARE, SELFPAY ==
[2019-11-20 14:07] VITALS: BMI 35.5
[2019-12-05] VITALS (10 sets, daily range): BP systolic 96–174; BP diastolic 60–110; PULSE 65–100; RESP 16–36; TEMP 36.4; O2SAT 93–98; BMI 35.8
--- NOTE | 2019-12-05 10:54 | RAD_ITS ---
STUDY: X-RAY CHEST REASON FOR EXAM: Female, 79 years old. PALPITATIONS TECHNIQUE: AP upright portable view. COMPARISON: 01/17/2018. FINDINGS: The lungs are clear and expanded. There is no demonstrated pleural abnormality. Normal size heart. Normal mediastinum and awais. Normal visualized pulmonary arteries. Mild atherosclerotic calcification of the thoracic aorta. S-shaped scoliosis of the thoracolumbar spine is unchanged. Normal visualized ribs, clavicles, and shoulders. There is no demonstrated abnormality of the visualized soft tissue structures of the upper abdomen. RAD/Chest 1 View (Portable) IMPRESSION: 1. No acute cardiopulmonary pathology. 2. Moderate S-shaped scoliosis of the thoracolumbar spine. 3. No significant interval change when compared to 01/17/2018. Electronically Signed: Nato Elder MD at 11:57 EDT , Service support ,
--- NOTE | 2019-12-05 10:54 | EKG12_ITS ---
Test Reason : Blood Pressure : / mmHG Vent. Rate : 093 BPM Atrial Rate : 096 BPM P-R Int : 000 ms QRS Dur : 162 ms QT Int : 414 ms P-R-T Axes : 000 041 -10 degrees QTc Int : 514 ms Atrial fibrillation Indeterminate axis Right bundle branch block Abnormal ECG Confirmed by SARAH CURTIS, EVA ([id number]), newspaper copy editor IZABELA CALLAWAY ([id number]) on 12/08/2019 9:19:18 AM Referred By: MARTI Confirmed By:EVA SMITH MD
--- NOTE | 2019-12-05 10:55 | ED.VIS.GEN ---
History of Present Illness Chief Complaint: Palpitations Detail of Chief Complaint: CALABRESE Informant: Patient, PCP - Dr. Cordova Onset: - - unk -- see below Timing: Intermittent Quality: dyspnea with exertion Location: chest Current Severity: gone, now that she is at rest Maximum Severity: Moderate Worsened by: exertion Relieved by: rest Associated Symptoms: mild dull left lower chest / upper abd pain that lasts seconds, random Narrative: Patient has a history of A. fib, for which she is on metoprolol and flecainide, as well as Eliquis long-term. She has had dyspnea with exertion chronically, that is been no different lately but she noticed when she took her vital signs at home that her pulse was in the 90s and occasionally just over 100, she states that is unusual for her. Other than that she has no specific symptoms to lead her to believe that maybe she was in atrial fibrillation, which usually she is not. She talked with her fitting room maintenance mechanic, and as a result took extra doses of her medications which she otherwise has not missed, and still having symptoms so she was advised to come to the ED for possible cardioversion. She states she first noticed her tachycardia 4 days ago. She denies any recent travel. No fevers or coughing, she has intermittent chest discomfort that is chronic and no different or worse in the past 4 days, her last episode was 5 minutes prior to arrival. She denies any associated symptoms with that, she feels no palpitations, lightheadedness, syncope. No leg swelling. She has a history of congestive heart failure and has home oxygen in case she needs it, she has used it off and on last couple days with no significant difference in her symptoms which occur only with exertion. Her intermittent left lower chest discomfort does not radiate in to arms, back, jaw, neck when she gets it. 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 (14) Meningioma Status: Chronic (15) Obesity Status: Chronic (16) Obstructive sleep apnea Status: Chronic (17) Paroxysmal atrial fibrillation Status: Chronic (18) Right bundle branch block Status: Chronic (19) Thoracic aortic aneurysm Status: Chronic Comment: 3.9 cm Past Medical History - Allergies and Home Meds Allergies/Adverse Reactions: Allergies adhesive Allergy (Verified 12/05/19 10:42) Rash irbesartan Allergy (Verified 12/05/19 10:42) Unknown solifenacin [From Vesicare] Allergy (Verified 12/05/19 10:42) Unknown sulindac [Sulindac] Allergy (Verified 12/05/19 10:42) Unknown atorvastatin [From Lipitor] Adverse Reaction (Verified 12/05/19 10:42) Unknown lisinopril Adverse Reaction (Verified 12/05/19 10:42) Other COUGH losartan potassium [From Cozaar] Adverse Reaction (Verified 12/05/19 10:42) Other metoprolol Adverse Reaction (Verified 12/05/19 10:42) GI Upset ramipril [From Altace] Adverse Reaction (Verified 12/05/19 10:42) Other tramadol Adverse Reaction (Verified 12/05/19 10:42) Unknown Primary Care Physician: Denny Romano Chi, MD [Primary Care Provider] - Surgical History: appendectomy, cholecystectomy, herniorrhaphy - With mesh, extensive per patient, total hip arthroplasty - Right, total knee arthroplasty - Bilateral, - - Esophageal dilation Lives: Alone Smoking Status: Never smoker Drugs: None - Family History Paternal Family History: Family History (Last Reviewed 11/20/19 @ 14:08 by Jelly Fernández) Father CVA (cerebral vascular accident) Mother CAD (coronary artery disease) Congestive heart failure Family History: Reports: Stroke, No pertinent history - No history of lung disease or autoimmune disease Maternal Family History: Family History (Last Reviewed 11/20/19 @ 14:08 by Jelly Fernández) Father CVA (cerebral vascular accident) Mother CAD (coronary artery disease) Congestive heart failure Family History: Reports: Stroke, No pertinent history - No history of lung disease autoimmune disease Review of Systems General: Denies: Chills, Fever, Sweats Eyes: Denies: Visual changes - bilaterally, Diplopia ENT: Denies: Bilateral ear pain, Rhinorrhea, Sore throat Cardiovascular: Reports: Chest pain. Denies: Palpitations, Heart racing Respiratory: Reports: Dyspnea on exertion. Denies: Cough, Sputum, Orthopnea Gastrointestinal: Denies: Abdominal pain, Nausea, Vomiting, Diarrhea, Melena, Hematochezia Genitourinary: Denies: Dysuria, Hematuria, Frequency Musculoskeletal: Denies: Neck pain, Back pain, Swelling, Extremity Pain Skin: Denies: Rash, Wounds Neurological: Denies: Headache, Weakness, Numbness Psych: Reports: Anxiety. Denies: Suicidal thoughts Physical Exam Vital Signs/Narrative: Vital Signs Temp Pulse Resp BP 12/05/19 10:39 97.5 F L 90 26 H 131/82 H Inital Vital Signs reviewed: Yes General: Well nourished, Well developed, No Acute Distress Head: Normocephalic, Atraumatic Eyes: Perrl, EOMI ENT: Moist mucous membranes, No rhinorrhea Neck: Supple, Nontender, No lymphadenopathy, No JVD Cardiovascular: Normal S1, Irregular, Murmur - 1/6 systolic. split S2.. Negative for: Tachycardia Respiratory: No distress, CTA bilaterally, Chest nontender Abdomen: Soft, Nontender, Nondistended, Normal bowel sounds Back: Nontender, Normal Inspection Extremities: Nontender, No edema. Negative for: Calf Tenderness Skin: Normal color, No rash, No Trauma Neurological: Alert, Oriented x3, Cranial nerves II-XII grossly intact, Normal Strength, Normal Sensation, Normal Gait Psychological: Normal affect, Normal Mood Diagnostic/Tx/Re-eval Impressions Chest X-Ray 12/05/19 10:54 IMPRESSION: 1. No acute cardiopulmonary pathology. 2. Moderate S-shaped scoliosis of the thoracolumbar spine. 3. No significant interval change when compared to 01/17/2018. Electronically Signed: Nato Elder MD at 11:57 EDT , Service support , 12/05/19 10:54 Chest 1 View (Portable) [RAD] Stat Laboratory Results 12/05/19 12/05/19 10:50 10:50 WBC 8.5 RBC 4.51 Hgb 14.1 Hct 43.9 MCV 97.3 MCH 31.3 MCHC 32.1 RDW Std Deviation 47.9 H RDW Coeff of Cricket 13.3 Plt Count 224 MPV 11.1 Immature Gran % (Auto) 0.400 Neut % (Auto) 72.6 H Lymph % (Auto) 17.5 L [place] % (Auto) 8.2 Eos % (Auto) 0.7 Baso % (Auto) 0.6 Absolute Neuts (auto) 6.2 Absolute Lymphs (auto) 1.49 Nucleated RBC % 0 Sodium 143 Potassium 3.6 Chloride 106 Carbon Dioxide 31.0 Anion Gap 6 BUN 34 H Creatinine 1.39 H Estim Creat Clear Calc 40.34 Est GFR (MDRD) Af Amer 47 L Est GFR (MDRD) Non-Af 39 L BUN/Creatinine Ratio 24.5 H Glucose 116 H Calcium 10.7 H Troponin I < 0.015 - Rhythm Strip Rhythm Strip: A-fib Rate: 93 Ectopy: None - EKG Initial EKG Interpretation: No Acute Injury Pattern, Atrial Fibrillation, RBBB Prior: Unchanged - Medical Decision Making Other than chronic renal insufficiency, labs and troponin are unremarkable. Her EKG shows a stable right bundle branch block with rate controlled atrial fibrillation and no acute injury. Her chest x-ray is unremarkable, showing chronic changes but nothing acute to suggest acute illness. Discussed with Dr. Cordova her fitting room maintenance mechanic, who agrees that cardioversion would be appropriate for her and if successful, discharging her home to follow-up as an outpatient. The patient consents to that, but she ate a couple hours prior to arrival. She had a very light meal, some cereal, milk, prune juice. Therefore we waited 4 hours postprandial, she consented, was monitored, and sedated with etomidate 10 mg in addition to fentanyl 25 mcg for pain control. With 1 attempt at 200 J she was successfully cardioverted. When she awoke, she felt fine and there were no complications. She was monitored for period of time and discharged home in stable condition and advised to follow-up with her fitting room maintenance mechanic after the weekend. - Critical Care Time Critical care time (excluding procedures): 30-74 minutes - 30 min, Including time spent:, Discussing w/Patient &/or Family/Thimble Press Operator, Discussing w/Consultants, Performing Direct Patient Care at Bedside - Not including procedure time Procedures Procedure(s): 1. -Procedural sedation --after informed consent, patient was n.p.o. for 4.5 hours, she was pretreated with fentanyl 25 mcg, followed by etomidate 10 mg. Nasal cannula was placed as well as slow IV fluids. She was monitored closely on the monitor and by nursing. I push the etomidate IV myself. There were no complications and the patient recovered uneventfully. 2. -Electric cardioversion --patient underwent synchronized cardioversion at 200 J biphasic once which was successful in converting her from atrial fibrillation to normal sinus rhythm. This was verified by repeat EKG. There were no complications and patient tolerated well. ED Disposition - Plan for ED Patient: Disposition: Home or Assisted Living Diagnosis: Atrial fibrillation status post cardioversion Instructions: ED AFIB, ED Cardioversion Electrical Referrals: Denny Romano Chi, MD [Primary Care Provider] - Prakash Cordova MD [STAFF PHYSICIAN] - 5-7 Days
[2019-12-05 11:10] LABS: Absolute Lymphocyte Count 1.49 X10^3/uL (0.83-4.51); Absolute Neutrophil Count 6.2 X10^3/uL (2.0-7.7); Basophil# 0.05 X10^3/uL; Basophil% 0.6 % (0-1); Eosinophil# 0.06 X10^3/uL; Eosinophils% 0.7 % (0-5); Hematocrit 43.9 % (37-47); Hemoglobin 14.1 g/dL (12.0-15.0); Lymphocyte # 1.49 X10^3/ul (4.0); Lymphocyte % 17.5 % (19-41); Mean Corp Hgb Conc 32.1 g/dL (32-36); Mean Corpuscular Hgb 31.3 pg (27.0-32.0); Mean Corpuscular Volume 97.3 fL (81-99); Mean Platelet Vol. 11.1 fl (6.2-12.0); Monocyte% 8.2 % (0-10); NRBC Flagged by Analyzer 0 % (0-5); Neutrophil % 72.6 % (47-70); Platelet Count 224 K/mm3 (150-450); RBC Distribution Width CV 13.3 % (11.6-14.6); RBC Distribution Width SD 47.9 fl (35.1-43.9); Red Blood Count 4.51 M/mm3 (4.2-5.4); White Blood Count 8.5 K/mm3 (4.4-11.0)
[2019-12-05 11:23] LABS: BUN 34 mg/dL (7-18); Creatinine, Serum 1.39 mg/dL (0.55-1.02); Estimated Creatinine Clearance 40.34 ml/min; Glucose 116 mg/dL (74-106)
[2019-12-05 11:24] LABS: Anion Gap 6 (5-15); BUN/Creat Ratio 24.5 RATIO (10-20); Calcium,Total 10.7 mg/dL (8.5-10.1); Chloride 106 mmol/L (98-107); EST Glomerular Filtration Rate 39 mL/min (>60); Est Glom Filt Rate - Afr Amer 47 mL/min (>60); Potassium 3.6 mmol/L (3.5-5.1); Sodium Level 143 mmol/L (136-145)
[2019-12-05] MEDS: 0.9% Normal Saline 1,000 ML 15 ML IV (13:08)
[2019-12-05] MEDS: fentaNYL 100 MCG/2 ML Ampul 25 MCG IV (13:08)
[2019-12-05] MEDS: Etomidate 20 MG/10 ML Vial 10 MG IV (13:36)
--- NOTE | 2019-12-05 13:40 | EKG12_ITS ---
Test Reason : Blood Pressure : / mmHG Vent. Rate : 066 BPM Atrial Rate : 066 BPM P-R Int : 292 ms QRS Dur : 174 ms QT Int : 458 ms P-R-T Axes : 090 005 -16 degrees QTc Int : 480 ms Sinus rhythm with 1st degree A-V block Right bundle branch block Abnormal ECG Confirmed by SARAH CURTIS, EVA ([id number]), editorial manager IZABELA CALLAWAY ([id number]) on 12/08/2019 9:20:20 AM Referred By: REBECCA Confirmed By:EVA SMITH MD
== END 2019-12-05 14:39 | disposition home or self-care (01) ==
PROVIDERS: Emergency Provider Emergency Medicine; PCP Family Medicine Geriatric Medicine
DX: I48.0 Paroxysmal atrial fibrillation (principal); Z79.01 Long term (current) use of anticoagulants; Z99.81 Dependence on supplemental oxygen
CPT/HCPCS: 71045; 80048; 84484; 85025; 92960; 93005; 96374; 96375; 99284; J7030; A4216

== ENCOUNTER → 2020-02-02 14:24 | Outpatient (CLI) | payer MEDICARE, SELFPAY ==
[2019-12-16 13:23] VITALS: BMI 35.8
[2020-02-02 16:19] LABS: Absolute Lymphocyte Count 1.44 X10^3/uL (0.83-4.51); Absolute Neutrophil Count 7.6 X10^3/uL (2.0-7.7); Basophil# 0.06 X10^3/uL; Basophil% 0.6 % (0-1); Eosinophil# 0.17 X10^3/uL; Eosinophils% 1.6 % (0-5); Hematocrit 41.3 % (37-47); Hemoglobin 13.1 g/dL (12.0-15.0); Lymphocyte # 1.44 X10^3/ul (4.0); Lymphocyte % 13.7 % (19-41); Mean Corp Hgb Conc 31.7 g/dL (32-36); Mean Corpuscular Hgb 31.3 pg (27.0-32.0); Mean Corpuscular Volume 98.6 fL (81-99); Mean Platelet Vol. 11.7 fl (6.2-12.0); Monocyte# 1.12 X10^3/uL; Monocyte% 10.7 % (0-10); NRBC Flagged by Analyzer 0 % (0-5); Neutrophil # 7.62 X10^3/uL (2.7-7.7); Neutrophil % 72.7 % (47-70); Platelet Count 285 K/mm3 (150-450); RBC Distribution Width CV 13.2 % (11.6-14.6); Red Blood Count 4.19 M/mm3 (4.2-5.4); White Blood Count 10.5 K/mm3 (4.4-11.0)
[2020-02-02 16:34] LABS: Anion Gap 8 (5-15); BUN 28 mg/dL (7-18); BUN/Creat Ratio 23.1 RATIO (10-20); Calcium,Total 10.5 mg/dL (8.5-10.1); Chloride 103 mmol/L (98-107); Creatinine, Serum 1.21 mg/dL (0.55-1.02); EST Glomerular Filtration Rate 45 mL/min (>60); Est Glom Filt Rate - Afr Amer 55 mL/min (>60); Glucose 98 mg/dL (74-106); Potassium 3.5 mmol/L (3.5-5.1); Sodium Level 140 mmol/L (136-145); Uric Acid 4.9 mg/dL (2.6-6.0)
[2020-02-02 16:38] LABS: Erythrocyte Sedimentation Rate 24 mm/hr (0-30)
== END ==
PROVIDERS: PCP Family Medicine Geriatric Medicine; Visit Provider Family Medicine Geriatric Medicine
DX: R79.9 Abnormal finding of blood chemistry, unspecified (principal)
CPT/HCPCS: 36415; 80048; 84550; 85025; 85652; 86140

== ENCOUNTER 2020-02-06 07:17 | Inpatient (IN) | payer MEDICARE, SELFPAY ==
[2019-12-16 13:23] VITALS: BMI 35.8
[2020-02-06] VITALS (12 sets, daily range): BP systolic 98–111; BP diastolic 56–81; PULSE 93–118; RESP 18–19; TEMP 36.6–37.2; O2SAT 98–100; BMI 35.4; BMI 34.6
--- NOTE | 2020-02-06 07:35 | EKG12_ITS ---
Test Reason : GI BLEED Blood Pressure : / mmHG Vent. Rate : 110 BPM Atrial Rate : 122 BPM P-R Int : 000 ms QRS Dur : 162 ms QT Int : 384 ms P-R-T Axes : 000 065 -21 degrees QTc Int : 519 ms Atrial fibrillation Right bundle branch block Abnormal ECG Confirmed by SARAH CURTIS, EVA ([id number]), editorial assistant MARIALUISA SWENSON ([id number]) on 02/09/2020 1:33:40 PM Referred By: BB Confirmed By:EVA SMITH MD
--- NOTE | 2020-02-06 07:38 | ED.DCSUM_ITS ---
History of Present Illness Chief Complaint: GI Bleed Informant: Patient Onset: Days - 3 Context: Gradual Onset Timing: Intermittent Quality: melena, followed by BRB Location: rectal Current Severity: Moderate Maximum Severity: Moderate Worsened by: nothing Relieved by: nothing Associated Symptoms: weak, dizzy, a little sob, palpitations off and on Narrative: Patient states 3 days ago the day after she saw her PCP and chemical supervisor, she started having melanotic stools. This morning she awoke and had mostly bright red blood mixed with melena. She has been feeling weak and lightheaded, no near syncope or syncope. Mild left lower quadrant abdominal pain intermittently, gone right now. A little short of breath and feeling palpitations off and on, without any chest discomfort. She has a history of atrial fibrillation for which she takes multiple medications including Eliquis. She last took her dose last evening around 12 hours ago. She states before seen her doctor and chemical supervisor, she had a near syncopal versus syncopal episode while she was at a grocery store the day before that, and felt poorly the rest of that day but did not go to the hospital. She said her foot was hurting because of gout and she received an injection in her buttock at her doctor's visit which really helped with that pain which now is better. She had some medication adjustments by her chemical supervisor. She has a history of congestive heart failure as well. 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 (13) Meningioma Status: Chronic (14) Obstructive sleep apnea Status: Chronic (15) Paroxysmal atrial fibrillation Status: Chronic (16) Thoracic aortic aneurysm Status: Chronic Comment: 3.9 cm Past Medical History - Allergies and Home Meds Allergies/Adverse Reactions: Allergies adhesive Allergy (Verified 02/06/20 07:22) Rash irbesartan Allergy (Verified 02/06/20 07:22) Unknown solifenacin [From Vesicare] Allergy (Verified 02/06/20 07:22) Unknown sulindac [Sulindac] Allergy (Verified 02/06/20 07:22) Unknown atorvastatin [From Lipitor] Adverse Reaction (Verified 02/06/20 07:22) Unknown lisinopril Adverse Reaction (Verified 02/06/20 07:22) Other COUGH losartan potassium [From Cozaar] Adverse Reaction (Verified 02/06/20 07:22) Other metoprolol Adverse Reaction (Verified 02/06/20 07:22) GI Upset ramipril [From Altace] Adverse Reaction (Verified 02/06/20 07:22) Other tramadol Adverse Reaction (Verified 02/06/20 07:22) Unknown Primary Care Physician: Denny Romano Chi, MD [Primary Care Provider] - Surgical History: appendectomy, cholecystectomy, herniorrhaphy - With mesh, extensive per patient, total hip arthroplasty - Right, total knee arthroplasty - Bilateral, - - Esophageal dilation Lives: Spouse/ Significant Other Smoking Status: Never smoker - Family History Paternal Family History: Family History (Last Reviewed 12/16/19 @ 13:27 by JOANN VelazquezC) Father CVA (cerebral vascular accident) Mother CAD (coronary artery disease) Congestive heart failure Family History: Reports: Stroke, No pertinent history - No history of lung disease or autoimmune disease Maternal Family History: Family History (Last Reviewed 12/16/19 @ 13:27 by JOANN VelazquezC) Father CVA (cerebral vascular accident) Mother CAD (coronary artery disease) Congestive heart failure Family History: Reports: Stroke, No pertinent history - No history of lung disease autoimmune disease Review of Systems General: Reports: Malaise. Denies: Chills, Fever, Sweats Eyes: Denies: Visual changes - bilaterally, Diplopia ENT: Denies: Rhinorrhea, Sore throat Cardiovascular: Reports: Palpitations. Denies: Chest pain Respiratory: Denies: Dyspnea, Cough, Dyspnea on exertion Gastrointestinal: Reports: Abdominal pain, Melena, Hematochezia. Denies: Nausea, Vomiting, Diarrhea Genitourinary: Denies: Dysuria, Hematuria, Frequency Musculoskeletal: Denies: Neck pain, Back pain, Swelling, Extremity Pain Skin: Denies: Rash, Wounds Neurological: Denies: Headache, Weakness, Numbness Physical Exam Vital Signs/Narrative: Vital Signs Temp Pulse Resp BP Pulse Ox 02/06/20 07:18 98.9 F 118 H 19 H 110/81 H 100 Inital Vital Signs reviewed: Yes General: Well nourished, Well developed, No Acute Distress Head: Normocephalic, Atraumatic Eyes: Perrl, EOMI ENT: Moist mucous membranes, No rhinorrhea Neck: Supple, Nontender, No JVD Cardiovascular: No murmurs, Irregular, Tachycardia Respiratory: No distress, CTA bilaterally, Chest nontender Abdomen: Soft, Nontender, Nondistended, Hyperactive bowel sounds. Negative for: Pulsatile mass Rectal: Nontender, - - Stool melanotic without gross bleeding, possibly a trace of red grossly; presumed to be guaiac positive given history Back: Nontender, Normal Inspection. Negative for: CVA tenderness Extremities: Nontender, No edema. Negative for: Calf Tenderness Skin: Normal color, No rash, No Trauma Neurological: Alert, Oriented x3, Cranial nerves II-XII grossly intact, Normal Strength, Normal Sensation Psychological: Normal affect, Normal Mood Diagnostic/Tx/Re-eval Laboratory Tests 02/06/20 02/06/20 Range/Units 07:25 07:25 WBC 15.0 H (4.4-11.0) K/mm3 RBC 3.14 L (4.2-5.4) M/mm3 Hgb 10.1 L (12.0-15.0) g/dL Hct 30.6 L (37-47) % MCV 97.5 (81-99) fL MCH 32.2 H (27.0-32.0) pg MCHC 33.0 (32-36) g/dL RDW Std Deviation 47.8 H (35.1-43.9) fl RDW Coeff of Cricket 13.5 (11.6-14.6) % Plt Count 302 (150-450) K/mm3 MPV 11.9 (6.2-12.0) fl Immature Gran % (Auto) 0.900 (0.0-0.9) % Neut % (Auto) 84.5 H (47-70) % Lymph % (Auto) 7.2 L (19-41) % [place] % (Auto) 7.3 (0-10) % Eos % (Auto) 0.0 (0-5) % Baso % (Auto) 0.1 (0-1) % Absolute Neuts (auto) 12.7 H (2.0-7.7) X10^3/uL Absolute Lymphs (auto) 1.08 (0.83-4.51) X10^3/uL Nucleated RBC % 0.2 (0-5) % Sodium 145 (136-145) mmol/L Potassium 4.2 (3.5-5.1) mmol/L Chloride 108 H (98-107) mmol/L Carbon Dioxide 27.0 (21.0-32.0) mmol/L Anion Gap 10 (5-15) BUN 117 H* (7-18) mg/dL Creatinine 1.64 H (0.55-1.02) mg/dL Estim Creat Clear Calc 33.85 ml/min Est GFR (MDRD) Af Amer 39 L (>60) mL/min Est GFR (MDRD) Non-Af 32 L (>60) mL/min BUN/Creatinine Ratio 71.3 H (10-20) RATIO Glucose 172 H (74-106) mg/dL Calcium 9.9 (8.5-10.1) mg/dL Troponin I 0.017 (<0.045) ng/mL - Rhythm Strip Rhythm Strip: A-fib Rate: 120 Ectopy: None - EKG Initial EKG Interpretation: No Acute Injury Pattern, Atrial Fibrillation, RBBB, AV Block - 1st deg, Non-Specific ST Changes Prior: Unchanged - Medical Decision Making Patient was typed and screened for blood transfusion, she was given IV fluids and Protonix 80 mg IV. She did not have active gross bleeding in the emergency department. Her hemoglobin is down 3 g in less than 1 week, with a BUN over 100, all consistent with her clinical appearance of upper GI bleeding. She was given fluids and we saw a trend toward lower heart rate and her rapid A. fib, I do not think emergent imaging is necessary, she has a very benign abdominal exam and her lungs are clear. I think she is feeling a little short of breath because of her rapid A. fib, she is not currently feeling short of breath lying/sitting in the ER. She does not need a transfusion right now, but as her blood counts equilibrate after the IV fluids, her numbers could appear lower. Discussed with surgery Dr. Velazquez since we do not have gastroenterology avai lable here. She is comfortable consulting on this pt for poss EGD. Discussed w/ hospitalist. ED Disposition - Plan for ED Patient: Disposition: Acute Care Hospital [facility] Diagnosis: Upper GI bleeding, Acute blood loss anemia, Atrial fibrillation with rapid ventricular response Referrals: Denny Romano Chi, MD [Primary Care Provider] -
[2020-02-06 07:49] LABS: Absolute Lymphocyte Count 1.08 X10^3/uL (0.83-4.51); Absolute Neutrophil Count 12.7 X10^3/uL (2.0-7.7); Basophil# 0.01 X10^3/uL; Basophil% 0.1 % (0-1); Hematocrit 30.6 % (37-47); Hemoglobin 10.1 g/dL (12.0-15.0); Lymphocyte # 1.08 X10^3/ul (4.0); Lymphocyte % 7.2 % (19-41); Mean Corpuscular Hgb 32.2 pg (27.0-32.0); Mean Corpuscular Volume 97.5 fL (81-99); Mean Platelet Vol. 11.9 fl (6.2-12.0); Monocyte# 1.09 X10^3/uL; Monocyte% 7.3 % (0-10); NRBC Flagged by Analyzer 0.2 % (0-5); Neutrophil % 84.5 % (47-70); Platelet Count 302 K/mm3 (150-450); RBC Distribution Width CV 13.5 % (11.6-14.6); RBC Distribution Width SD 47.8 fl (35.1-43.9); Red Blood Count 3.14 M/mm3 (4.2-5.4)
[2020-02-06] MEDS: 0.9% Normal Saline 1,000 ML 1000 ML IV (08:00)
[2020-02-06 08:08] LABS: Anion Gap 10 (5-15); BUN 117 mg/dL (7-18); BUN/Creat Ratio 71.3 RATIO (10-20); Calcium,Total 9.9 mg/dL (8.5-10.1); Chloride 108 mmol/L (98-107); Creatinine, Serum 1.64 mg/dL (0.55-1.02); EST Glomerular Filtration Rate 32 mL/min (>60); Est Glom Filt Rate - Afr Amer 39 mL/min (>60); Estimated Creatinine Clearance 33.85 ml/min; Glucose 172 mg/dL (74-106); Potassium 4.2 mmol/L (3.5-5.1); Sodium Level 145 mmol/L (136-145)
--- NOTE | 2020-02-06 08:53 | ED.RN ---
SPOKE TO SON THADDEUS, UPDATED ON ADMISSION
--- NOTE | 2020-02-06 09:11 | PCM.HP.STD ---
Problem List (1) Upper GI bleeding Status: Acute (2) Acute blood loss anemia Status: Acute (3) Atrial fibrillation with rapid ventricular response Status: Acute (4) Hyperlipidemia Status: Chronic Qualifiers: Hyperlipidemia type: pure hypercholesterolemia Qualified Code(s): E78.00 - Pure hypercholesterolemia, unspecified; E78.0 - Pure hypercholesterolemia (5) Obstructive sleep apnea Status: Chronic (6) Carotid stenosis Status: Chronic (7) Chronic kidney disease Status: Chronic (8) Dementia Status: Chronic (9) Meningioma Status: Chronic (10) Chronic diastolic heart failure Status: Chronic (11) Bradycardia Status: Acute (12) Paroxysmal atrial fibrillation Status: Chronic (13) Diastolic CHF, acute Status: Chronic (14) Dyspnea on exertion Status: Chronic (15) Hyperparathyroidism Status: Chronic (16) Hypothyroidism Status: Chronic (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 (18) Hypertension Status: Chronic Qualifiers: Hypertension type: essential hypertension Qualified Code(s): I10 - Essential (primary) hypertension (19) Obesity Status: Chronic (20) Right bundle branch block Status: Chronic (21) AV block, 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 Today patient developed melena plus some small bouts of blood. Presented to the emergency room. In the emergency room patient was noted to be melanotic and had a hemoglobin of 10.1. Patient had a CBC performed on the of this month and her hemoglobin was 13.1 at that time. Patient has been on apixaban for atrial fibrillation. Denies any NSAIDs. Does have some abdominal pain in the left flank. [] Past Medical History Past Medical History (Chronic Problems): Chronic Problems (Last Reviewed 12/16/19 @ 13:27 by JOANN VelazquezC) Hyperlipidemia (Chronic) Obstructive sleep apnea (Chronic) Carotid stenosis (Chronic) Chronic kidney disease (Chronic) Dementia (Chronic) Meningioma (Chronic) Chronic diastolic heart failure (Chronic) Paroxysmal atrial fibrillation (Chronic) Diastolic CHF, acute (Chronic) Dyspnea on exertion (Chronic) Hyperparathyroidism (Chronic) Hypothyroidism (Chronic) Lymphomatoid papulosis (Chronic) Hypertension (Chronic) Obesity (Chronic) Right bundle branch block (Chronic) AV block, 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) GERD (gastroesophageal reflux disease) (Chronic) History of esophageal dilatation (Chronic) Anxiety and depression (Chronic) Thoracic aortic aneurysm (Chronic) 3.9 cm History of CVA (cerebrovascular accident) (Chronic) Medical History: Medical History (Last Reviewed 02/06/20 @ 09:[address] Dakota Yanes, DO) Hyperlipidemia (Chronic) E78.5 Obstructive sleep apnea (Chronic) G47.33 Carotid stenosis (Chronic) I65.29 Chronic kidney disease (Chronic) N18.9 Dementia (Chronic) F03.90 Meningioma (Chronic) D32.9 Chronic diastolic heart failure (Chronic) I50.32 Paroxysmal atrial fibrillation (Chronic) I48.0 Diastolic CHF, acute (Chronic) I50.31 Dyspnea on exertion (Chronic) R06.09 Hyperparathyroidism (Chronic) E21.3 Hypothyroidism (Chronic) E03.9 Lymphomatoid papulosis (Chronic) C86.6 Hypertension (Chronic) I10 Obesity (Chronic) E66.9 Right bundle branch block (Chronic) I45.10 AV block, 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) I44.0 GERD (gastroesophageal reflux disease) (Chronic) K21.9 Anxiety and depression (Chronic) F41.9, F32.9 Thoracic aortic aneurysm (Chronic) I71.2 3.9 cm History of CVA (cerebrovascular accident) (Chronic) Z86.73 Osteoarthritis M19.90 Allergies adhesive Allergy (Verified 02/06/20 07:22) Rash irbesartan Allergy (Verified 02/06/20 07:22) Unknown solifenacin [From Vesicare] Allergy (Verified 02/06/20 07:22) Unknown sulindac [Sulindac] Allergy (Verified 02/06/20 07:22) Unknown atorvastatin [From Lipitor] Adverse Reaction (Verified 02/06/20 07:22) Unknown lisinopril Adverse Reaction (Verified 02/06/20 07:22) Other COUGH losartan potassium [From Cozaar] Adverse Reaction (Verified 02/06/20 07:22) Other metoprolol Adverse Reaction (Verified 02/06/20 07:22) GI Upset ramipril [From Altace] Adverse Reaction (Verified 02/06/20 07:22) Other tramadol Adverse Reaction (Verified 02/06/20 07:22) Unknown Home Medications: Ambulatory Orders Medication Instructions Recorded Apixaban [Eliquis] 5 mg PO BID 04/17/17 Atorvastatin Calcium [Lipitor] 10 mg PO QHS 04/17/17 Clobetasol Propionate [Temovate 1 applic TOPICAL BID 04/17/17 Cream ([facility])] Fluticasone 0.05% [Flonase Nasal 1 spray NASAL DAILY 04/17/17 [place]] albuterol sulfate 90 mcg/actuation 2 puff INHALATION Q4H PRN g 09/27/17 aerosol inhaler hydrocortisone 2.5 % topical cream 1 applic TOPICAL BID-QID PRN 09/27/17 ketoconazole 2 % topical cream 1 applic TOPICAL .COMPLEX 09/27/17 levothyroxine 100 mcg tablet 100 mcg PO .COMPLEX 09/27/17 flecainide 50 mg tablet 50 mg PO Q12H #180 tab 09/10/19 atenolol 25 mg tablet 25 mg PO BID #180 tab 11/13/19 febuxostat 40 mg tablet 80 mg PO DAILY 11/20/19 phenylephrine HCl 0.5 % nasal spray 1 spray INTRANASAL QHS ml 11/20/19 nystatin 100,000 unit/gram topical 1 applic TOPICAL .COMPLEX PRN 12/16/19 powder amlodipine 5 mg tablet 5 mg PO QDAY #90 tab 01/04/20 furosemide 40 mg tablet 40 mg PO DAILY #90 tab 02/03/20 potassium chloride 20 mEq 20 meq PO BID #180 tab 02/03/20 tablet,extended release prednisone 10 mg tablet 10 mg PO .COMPLEX #1 tab 02/03/20 Colchicine 0.6 mg PO DAILY PRN 02/06/20 Surgical History: Surgical History (Last Reviewed 02/06/20 @ 09:[address] Dakota Yanes, DO) History of esophageal dilatation (Chronic) Z98.890 H/O total knee replacement Z96.659 History of incisional hernia repair Z98.890, Z87.19 History of total hip replacement Z96.649 Hx of cholecystectomy Z98.890, Z90.49 Surgical History: appendectomy, cholecystectomy, herniorrhaphy - With mesh, extensive per patient, total hip arthroplasty - Right, total knee arthroplasty - Bilateral, - - Esophageal dilation Psychiatric History: No pertinent psych hx [employer] History: - - Tubal ligation Lives: Spouse/ Significant Other Smoking Status: Never smoker - *Family History Paternal Family History: Family History (Last Reviewed 02/06/20 @ 09:[address] Dakota Yanes DO) Father CVA (cerebral vascular accident) Mother CAD (coronary artery disease) Congestive heart failure History Items: Stroke, No pertinent history - No history of lung disease or autoimmune disease Maternal Family History: Family History (Last Reviewed 02/06/20 @ 09:[address] Dakota Yanes DO) Father CVA (cerebral vascular accident) Mother CAD (coronary artery disease) Congestive heart failure History Items: Stroke, No pertinent history - No history of lung disease autoimmune disease Review of Systems Constitutional: Denies: Chills, Fever, Weight Change Eyes: Denies: Blurred vision, Double vision HEENT: Denies: Head Aches, Sinus Congestion, Sinus Drainage Cardiovascular: Reports: Light Headedness, Palpitations. Denies: Chest Pain Respiratory: Denies: Cough, Shortness of breath at rest, Sputum production Gastrointestinal: Reports: Abdominal Pain, Hematochezia, Melena. Denies: Hematemesis Genitourinary: Denies: Dysuria Skin: Denies: Rash, Wounds Hematologic/ Lymphatic: Reports: Easy Bruising. Denies: Easy Bleeding, Hx of blood clot Comment: All review of systems were negative except as mentioned above in the history of present illness and the other review of systems. VTE Information - Inpt Only VTE Present on Admission: No VTE Mechan Device Prophylaxis: SCD's VTE Pharm Prophylaxis ordered?: No Reason prophylaxis not ordered:: Medical Contraindication Patient Problems: Active and Suspected Problems (Last Reviewed 12/16/19 @ 13:27 by Arley Garcia, MANAGER LIBRARY-C) Upper GI bleeding (Acute) Acute blood loss anemia (Acute) Atrial fibrillation with rapid ventricular response (Acute) - Physical Exam Vitals/I&O's: Vital Signs Temp Pulse Resp BP Pulse Ox 37.2 C 104 H 18 109/78 100 02/06/20 08:51 02/06/20 08:51 02/06/20 08:51 02/06/20 08:51 02/06/20 08:51 Oxygen Flow Rate (L/min) 3 Oxygen Delivery Method Nasal Cannula Weight: 79.7 kg Body Mass Index (BMI) 35.4 Finger Stick Blood Glucose 132 Intake and Output for Last 24 Hours 02/04/20 02/05/20 02/06/20 23:59 23:59 23:59 Intake Total 1035 / 1035 Balance 1035 / 1035 General: Alert, Cooperative, No apparent distress, - - hard of hearing HEENT: Atraumatic, Normocephalic Oral: Moist Mucosa, No Gingival or Mucosal Lesions/ Ulcerations Neck: No Nodes, Thyroid Normal Size and Texture Lungs: Clear to auscultation, Normal air movement, No rhonchi, No wheeze, No rales Cardiovascular: Regular rate, Regular Rhythm, Normal S1, Normal S2, No murmurs Abdomen: Bowel Sounds Present, Soft, Non-Distended, Tender - Slight in the left side of her abdomen. No rebound Extremities: No edema, No Calf Tenderness Skin: No rashes, No breakdown, - - Some old bruising on her hands Musculoskeletal: No Tenderness to Palpation of Joints or Extremities, No Muscle Wasting Neurological: Sensory exam intact to light touch and pain, - - No clonus Psych/Mental Status: Normal Affect, Appropriate Laboratory Results 02/06/20 07:25: WBC 15.0 H, RBC 3.14 L, Hgb 10.1 L, Hct 30.6 L, MCV 97.5, MCH 32.2 H, MCHC 33.0, RDW Std Deviation 47.8 H, RDW Coeff of Cricket 13.5, Plt Count 302, MPV 11.9, Immature Gran % (Auto) 0.900, Neut % (Auto) 84.5 H, Lymph % (Auto) 7.2 L, [place] % (Auto) 7.3, Eos % (Auto) 0.0, Baso % (Auto) 0.1, Absolute Neuts (auto) 12.7 H, Absolute Lymphs (auto) 1.08, Nucleated RBC % 0.2 02/06/20 07:25: Sodium 145, Potassium 4.2, Chloride 108 H, Carbon Dioxide 27.0, Anion Gap 10, BUN 117 H*, Creatinine 1.64 H, Estim Creat Clear Calc 33.85, Est GFR (MDRD) Af Amer 39 L, Est GFR (MDRD) Non-Af 32 L, BUN/Creatinine Ratio 71.3 H, Glucose 172 H, Calcium 9.9, Troponin I 0.017 02/06/20 07:25: Blood Type Pending, Antibody Screen Pending Assessment/Plan All Active Problems (Last Reviewed 12/16/19 @ 13:27 by Arley Garcia, MANAGER LIBRARY-C) Upper GI bleeding (Acute) Acute blood loss anemia (Acute) Atrial fibrillation with rapid ventricular response (Acute) Bradycardia (Acute) Confusion (Resolved) Esophageal stricture (Resolved) Expressive aphasia (Resolved) Hypoxia (Resolved) 1. GI bleed: Suspect upper. Exacerbated by apixaban. Patient be n.p.o. with exception of meds. Protonix has been given in the emergency room and will continue with Protonix [address] Velazquez, general surgery, was contacted through the emergency room and will be on consultation. Plan is for endoscopy on the as patient did receive apixaban last night. Appears that this started several days ago this patient has been noticing melena since Saturday. 2. Acute blood loss anemia: Secondary to above. Hemoglobin 10.1. No indication to transfuse at this time. Patient has been typed and screened already. 3. Atrial fibrillation with RVR: Likely reactive with the acute blood loss anemia. Would continue with the flecainide for now. Patient is on atenolol but will hold with that as her blood pressure is on the lower end of normal. Blood pressure is stable or improved, then could consider adding atenolol. Apixaban will be held given the anemia and GI bleed 4. VTE prophylaxis with SCDs as chemical prophylaxis contraindicated in light of the acute hemorrhage. 5. Advanced care planning: Discussed with patient. Patient wished to be full CODE STATUS. Patient has had no recent exposure to anyone with COVID nor denies any symptoms associated with disease at this point time. Inpatient E&M: 50968 Init Hosp L3
[2020-02-06 09:40] LABS: Hematocrit 28.7 % (37-47); Hemoglobin 9.1 g/dL (12.0-15.0)
[2020-02-06] MEDS: 0.9% Saline Lock 10 ML Syringe IV (09:50)
[2020-02-06] MEDS: Lactated Ringers 1,000 ML 100 ML IV ×2 (09:50→18:58)
--- NOTE | 2020-02-06 10:04 | PCM.CONS.GEN ---
Reason for Consult Date of Consultation: 02/06/20 History of Present Illness: The patient is a 79 year old F presented to the ER due to melena. Patient's normal hemoglobins previously was 13 on admit it was 10.1 currently it was 9.1. Patient has had no further bowel movement since she came to the ER. Patient states that prior to the ER she had black stools as well as some red stools. Patient is on Eliquis due to A. fib last took last night. Patient states since she is been having black stools. Patient is not on any PPI at home. Patient denies ever having EGD previously in the past. Patient states her last colonoscopy was in [address] Carias and states it was normal. Currently patient is n.p.o. with sips/ice chips and on Protonix IV gtt. Past Medical History Past Medical History (Chronic Problems): Chronic Problems (Last Reviewed 02/06/20 @ 09:[address] Dakota Yanes DO) Hyperlipidemia (Chronic) Obstructive sleep apnea (Chronic) Carotid stenosis (Chronic) Chronic kidney disease (Chronic) Dementia (Chronic) Meningioma (Chronic) Chronic diastolic heart failure (Chronic) Paroxysmal atrial fibrillation (Chronic) Diastolic CHF, acute (Chronic) Dyspnea on exertion (Chronic) Hyperparathyroidism (Chronic) Hypothyroidism (Chronic) Lymphomatoid papulosis (Chronic) Hypertension (Chronic) Obesity (Chronic) Right bundle branch block (Chronic) AV block, 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) GERD (gastroesophageal reflux disease) (Chronic) History of esophageal dilatation (Chronic) Anxiety and depression (Chronic) Thoracic aortic aneurysm (Chronic) 3.9 cm History of CVA (cerebrovascular accident) (Chronic) Medical History: Medical History (Last Reviewed 02/06/20 @ 09:[address] Dakota Yanes DO) Hyperlipidemia (Chronic) E78.5 Obstructive sleep apnea (Chronic) G47.33 Carotid stenosis (Chronic) I65.29 Chronic kidney disease (Chronic) N18.9 Dementia (Chronic) F03.90 Meningioma (Chronic) D32.9 Chronic diastolic heart failure (Chronic) I50.32 Paroxysmal atrial fibrillation (Chronic) I48.0 Diastolic CHF, acute (Chronic) I50.31 Dyspnea on exertion (Chronic) R06.09 Hyperparathyroidism (Chronic) E21.3 Hypothyroidism (Chronic) E03.9 Lymphomatoid papulosis (Chronic) C86.6 Hypertension (Chronic) I10 Obesity (Chronic) E66.9 Right bundle branch block (Chronic) I45.10 AV block, 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) I44.0 GERD (gastroesophageal reflux disease) (Chronic) K21.9 Anxiety and depression (Chronic) F41.9, F32.9 Thoracic aortic aneurysm (Chronic) I71.2 3.9 cm History of CVA (cerebrovascular accident) (Chronic) Z86.73 Osteoarthritis M19.90 Allergies adhesive Allergy (Verified 02/06/20 07:22) Rash irbesartan Allergy (Verified 02/06/20 07:22) Unknown solifenacin [From Vesicare] Allergy (Verified 02/06/20 07:22) Unknown sulindac [Sulindac] Allergy (Verified 02/06/20 07:22) Unknown atorvastatin [From Lipitor] Adverse Reaction (Verified 02/06/20 07:22) Unknown lisinopril Adverse Reaction (Verified 02/06/20 07:22) Other COUGH losartan potassium [From Cozaar] Adverse Reaction (Verified 02/06/20 07:22) Other metoprolol Adverse Reaction (Verified 02/06/20 07:22) GI Upset ramipril [From Altace] Adverse Reaction (Verified 02/06/20 07:22) Other tramadol Adverse Reaction (Verified 02/06/20 07:22) Unknown Home Medications: Ambulatory Orders Medication Instructions Recorded Apixaban [Eliquis] 5 mg PO BID 04/17/17 Atorvastatin Calcium [Lipitor] 10 mg PO QHS 04/17/17 Clobetasol Propionate [Temovate 1 applic TOPICAL BID 04/17/17 Cream ([facility])] Fluticasone 0.05% [Flonase Nasal 1 spray NASAL DAILY 04/17/17 [place]] albuterol sulfate 90 mcg/actuation 2 puff INHALATION Q4H PRN g 09/27/17 aerosol inhaler hydrocortisone 2.5 % topical cream 1 applic TOPICAL BID-QID PRN 09/27/17 ketoconazole 2 % topical cream 1 applic TOPICAL .COMPLEX PRN 09/27/17 levothyroxine 100 mcg tablet 100 mcg PO .COMPLEX 09/27/17 flecainide 50 mg tablet 50 mg PO Q12H #180 tab 09/10/19 atenolol 25 mg tablet 25 mg PO BID #180 tab 11/13/19 febuxostat 40 mg tablet 80 mg PO DAILY 11/20/19 phenylephrine HCl 0.5 % nasal spray 1 spray INTRANASAL QHS ml 11/20/19 nystatin 100,000 unit/gram topical 1 applic TOPICAL .COMPLEX PRN 12/16/19 powder amlodipine 5 mg tablet 5 mg PO QDAY #90 tab 01/04/20 furosemide 40 mg tablet 40 mg PO DAILY #90 tab 02/03/20 potassium chloride 20 mEq 20 meq PO BID #180 tab 02/03/20 tablet,extended release prednisone 10 mg tablet 10 mg PO .COMPLEX #1 tab 02/03/20 Colchicine 0.6 mg PO DAILY PRN 02/06/20 Surgical History: Surgical History (Last Reviewed 02/06/20 @ 09:[address] Dakota Yanes DO) History of esophageal dilatation (Chronic) Z98.890 H/O total knee replacement Z96.659 History of incisional hernia repair Z98.890, Z87.19 History of total hip replacement Z96.649 Hx of cholecystectomy Z98.890, Z90.49 Surgical History: appendectomy, cholecystectomy, herniorrhaphy - With mesh, extensive per patient, total hip arthroplasty - Right, total knee arthroplasty - Bilateral, - - Esophageal dilation Psychiatric History: No pertinent psych hx [employer] History: - - Tubal ligation Lives: Spouse/ Significant Other Smoking Status: Never smoker - *Family History Paternal Family History: Family History (Last Reviewed 02/06/20 @ 09:[address] Dakota Yanes DO) Father CVA (cerebral vascular accident) Mother CAD (coronary artery disease) Congestive heart failure History Items: Stroke, No pertinent history - No history of lung disease or autoimmune disease Maternal Family History: Family History (Last Reviewed 02/06/20 @ 09:[address] Dakota Yanes DO) Father CVA (cerebral vascular accident) Mother CAD (coronary artery disease) Congestive heart failure History Items: Stroke, No pertinent history - No history of lung disease autoimmune disease Review of Systems Constitutional: Denies: Fever Eyes: Denies: Drainage HEENT: Denies: Difficulty Swallowing Cardiovascular: Denies: Chest Pain Respiratory: Reports: Shortness of Breath - Patient states she is on 2-1/2 L of O2 at night and occasionally during the day Gastrointestinal: Reports: Abdominal Pain - Occasional left-sided abdominal pain, none currently, Hematochezia, Melena. Denies: Nausea, Vomiting Genitourinary: Denies: Dysuria Musculoskeletal: Denies: Joint Tenderness Skin: Denies: Rash Neurological: Reports: Balance problems - Patient states she did fall at the grocery store on Saturday Psychiatric: Denies: Anxiety, Depression Hematologic/ Lymphatic: Reports: Easy Bruising, Easy Bleeding Patient Problems: Active and Suspected Problems (Last Reviewed 02/06/20 @ 09:[address] Dakota Yanes, DO) Upper GI bleeding (Acute) Acute blood loss anemia (Acute) Atrial fibrillation with rapid ventricular response (Acute) - Physical Exam Vitals/I&O's: Vital Signs Temp Pulse Resp BP Pulse Ox 98.9 F 115 H 18 110/68 98 02/06/20 09:54 02/06/20 09:54 02/06/20 09:54 02/06/20 09:54 02/06/20 09:54 Oxygen Flow Rate (L/min) 2.5 Oxygen Delivery Method Nasal Cannula Weight: 171 lb 8.314 oz Body Mass Index (BMI) 34.6 Finger Stick Blood Glucose 132 Intake and Output for Last 24 Hours 02/04/20 02/05/20 02/06/20 23:59 23:59 23:59 Intake Total 1035 / 1035 Balance 1035 / 1035 General: Alert, Oriented x3, Cooperative, No apparent distress HEENT: Atraumatic Lungs: Normal air movement Cardiovascular: Irregular Rate, Tachycardic Abdomen: Soft, Non Tender, Non-Distended, - - CHELSY only showed melanotic stool no bright red blood or maroon blood on exam Extremities: No clubbing, No cyanosis, No edema Neurological: Cranial nerves II-XII grossly intact Psych/Mental Status: Anxious Laboratory Results 02/06/20 07:25: WBC 15.0 H, RBC 3.14 L, Hgb 10.1 L, Hct 30.6 L, MCV 97.5, MCH 32.2 H, MCHC 33.0, RDW Std Deviation 47.8 H, RDW Coeff of Cricket 13.5, Plt Count 302, MPV 11.9, Immature Gran % (Auto) 0.900, Neut % (Auto) 84.5 H, Lymph % (Auto) 7.2 L, [place] % (Auto) 7.3, Eos % (Auto) 0.0, Baso % (Auto) 0.1, Absolute Neuts (auto) 12.7 H, Absolute Lymphs (auto) 1.08, Nucleated RBC % 0.2 02/06/20 07:25: Sodium 145, Potassium 4.2, Chloride 108 H, Carbon Dioxide 27.0, Anion Gap 10, BUN 117 H*, Creatinine 1.64 H, Estim Creat Clear Calc 33.85, Est GFR (MDRD) Af Amer 39 L, Est GFR (MDRD) Non-Af 32 L, BUN/Creatinine Ratio 71.3 H, Glucose 172 H, Calcium 9.9, Troponin I 0.017 02/06/20 07:25: Blood Type A POSITIVE, Antibody Screen NEGATIVE 02/06/20 09:35: Hgb 9.1 L, Hct 28.7 L Current Medications Acetaminophen (Tylenol) 650 mg PO Q6H PRN PRN PRN Reason: Pain Score 1-10/Temp > 100.7 F Acetaminophen (Tylenol) 650 mg RECTAL Q4H PRN PRN PRN Reason: Pain Score 1-10/Temp > 100.7 F Albuterol Sulfate (Ventolin Aerosols) 2.5 mg INHALATION Q4H PRN PRN Reason: SOB &/OR WHEEZING Clobetasol Propionate (Temovate Cream (Bkc)) 1 applic TOPICAL BID [facility]; Protocol Dextrose (D50w Syringe) 0 gm IV X1 PRN; Protocol PRN Reason: Hypoglycemia Flecainide Acetate (Tambocor) 50 mg PO Q12 [facility] Fluticasone Propionate (Flonase Nasal [place]) 1 spray NASAL DAILY [facility] Glucagon () 1 mg IM .X1 PRN PRN Reason: Hypoglycemia Hydrocortisone (Hytone) 1 applic TOPICAL 4X/DAY PRN PRN; Protocol PRN Reason: RASH/TOPICAL IRRITATION Lactated Ringer's () 1,000 mls @ 100 mls/hr IV .Q10H [facility] Last Admin: 02/06/20 09:50 Dose: 100 mls/hr Documented by: Pantoprazole Sodium 40 mg/ (Sodium Chloride) 110 mls @ 330 mls/hr IV Q12 [facility] Sodium Chloride () 500 mls @ 15 mls/hr IV PRN PRN PRN Reason: Blood Transfusion Sodium Chloride () 250 mls @ 15 mls/hr IV .[id number] PRN PRN Reason: Saline Flush Sodium Chloride () 250 mls @ 15 mls/hr IV .[id number] PRN PRN Reason: Additional IVPB Infusion Ketoconazole (Nizoral) 1 applic TOPICAL .COMPLEX [facility]; Protocol Nystatin (Mycostatin Powder) 1 applic TOPICAL BID PRN PRN; Protocol PRN Reason: IRRITATION Ondansetron HCl (Zofran) 4 mg IV Q8H PRN PRN PRN Reason: NAUSEA/VOMITING Phenylephrine HCl (Umesh-Synephrine) 1 spray NASAL QHS [facility] Sodium Chloride () 10 - 40 ml IV UD PRN PRN Reason: SALINE FLUSH Last Admin: 02/06/20 09:50 Dose: 10 ml Documented by: Assessment/Plan All Active Problems (Last Reviewed 02/06/20 @ 09:[address] Dakota Yanes, DO) Upper GI bleeding (Acute) Acute blood loss anemia (Acute) Atrial fibrillation with rapid ventricular response (Acute) Bradycardia (Acute) Confusion (Resolved) Esophageal stricture (Resolved) Expressive aphasia (Resolved) Hypoxia (Resolved) 79-year-old female with GI bleed, melena, on Eliquis for A. fib last taken last night, anemia Admit to hospitalist, continue H&H checks-type and screen completed, Protonix IV, Eliquis held I have discussed the above with the patient. EGD is scheduled for 8 AM tomorrow morning. I have offered the patient EGD for evaluation. Discussed with patient that if did not find an obvious source on EGD would plan to prep for colonoscopy to be completed on Saturday--CHELSY did not show any maroon or bright red blood only Melena will continue to monitor bowel movements. I have explained the risks/benefits of the procedure and described the procedure. I have discussed the risks with the patient, including but not limited to: infection, bleeding, perforation of the GI tract requiring emergency surgery, inability to complete the procedure, injury to any internal organs, complications of anesthesia, etc. - the patient understands and agrees to proceed. I have answered all the patient's questions to the patient's satisfaction and the patient has no further questions. Josiane Velazquez M.D. Pager: [phone] [facility] [address] [place], [place] [address], [address] [place] [address] Office: [phone] Procedure Criteria Procedure Type: Essential Procedure Essential: Yes Criteria Statement: On 11/24/2019 the [facility] ([facility]) Public Order signed by [facility] Director Noelle Saenz M.D., regarding the Management of Non-Essential Surgeries and Procedures for the purpose of preserving Personal Protective Equipment (PPE) and critical hospital capacity and resources within [place] went into effect as of 11/25/2019 at 5:00PM. According to the [facility] Public Order: This action will remain in full force and effect until the State of Emergency declared by the Governor no longer exists or the Director of the [facility] rescinds or modifies this Order. This [facility] order stated all non-essential or elective surgeries and procedures that utilize PPE should be delayed unless there is undue risk to the current or future health of a patient. After reviewing the aforementioned [facility] Public Order and the patient's clinical case, I have determined that the scheduled procedure meets the criteria to go forward. Risk to Patient if Procedure Delayed: Threat to patient's life if surgery or procedure is delayed Inpatient E&M: 33298 Init Hosp L2
--- NOTE | 2020-02-06 11:09 | NURSING ---
This RN called and updated the pt's son, Prakash and .
[2020-02-06] MEDS: Flecainide 100 MG Tablet 50 MG PO ×2 (11:59→20:49)
[2020-02-06] MEDS: Fluticasone 0.05% 1 SPRAY NASAL.SRY NASAL (12:00)
[2020-02-06 13:26] LABS: Hematocrit 26.3 % (37-47); Hemoglobin 8.3 g/dL (12.0-15.0)
[2020-02-06] MEDS: Acetaminophen 325 MG Tablet 650 MG PO ×2 (16:06→23:42)
--- NOTE | 2020-02-06 16:15 | NURSING ---
This RN taking over care at this time
[2020-02-06 19:38] LABS: Hematocrit 26.5 % (37-47); Hemoglobin 8.5 g/dL (12.0-15.0)
[2020-02-06] MEDS: Phenylephrine 0.25% 15 ML NASAL.SRY 1 SPRAY NASAL (20:48)
--- NOTE | 2020-02-06 20:58 | NURSING ---
Patient requesting all HS medications given early this shift
[2020-02-07] VITALS (18 sets, daily range): BP systolic 83–116; BP diastolic 44–70; PULSE 72–121; RESP 16–20; TEMP 36.3–36.6; O2SAT 96–100; BMI 34.6
[2020-02-07 01:35] LABS: Hematocrit 25.2 % (37-47)
[2020-02-07] MEDS: Lactated Ringers 1,000 ML 100 ML IV ×2 (05:07→09:12)
--- NOTE | 2020-02-07 05:55 | EKG12_ITS ---
Test Reason : AM EKG Blood Pressure : / mmHG Vent. Rate : 094 BPM Atrial Rate : 214 BPM P-R Int : 000 ms QRS Dur : 166 ms QT Int : 406 ms P-R-T Axes : 000 066 -33 degrees QTc Int : 507 ms Atrial fibrillation Right bundle branch block Abnormal ECG When compared with ECG of 05-DEC-2019 13:48, Atrial fibrillation has replaced Sinus rhythm Questionable change in QRS axis Confirmed by SARAH CURTIS, EVA ([id number]), medical editor MARIALUISA SWENSON ([id number]) on 02/09/2020 1:59:26 PM Referred By: Confirmed By:EVA SMITH MD
[2020-02-07] MEDS: Nystatin Powder 15gm Bottle 1 APPLIC TOPICAL (06:07)
[2020-02-07 06:58] LABS: Absolute Lymphocyte Count 1.78 X10^3/uL (0.83-4.51); Basophil# 0.01 X10^3/uL; Basophil% 0.1 % (0-1); Eosinophil# 0.02 X10^3/uL; Eosinophils% 0.2 % (0-5); Hematocrit 27.9 % (37-47); Hemoglobin 8.7 g/dL (12.0-15.0); Lymphocyte # 1.78 X10^3/ul (4.0); Lymphocyte % 16.6 % (19-41); Mean Corp Hgb Conc 31.2 g/dL (32-36); Mean Corpuscular Hgb 32.1 pg (27.0-32.0); Monocyte# 0.79 X10^3/uL; Monocyte% 7.4 % (0-10); NRBC Flagged by Analyzer 0 % (0-5); Neutrophil # 8.04 X10^3/uL (2.7-7.7); Neutrophil % 75.1 % (47-70); Platelet Count 212 K/mm3 (150-450); RBC Distribution Width CV 13.7 % (11.6-14.6); RBC Distribution Width SD 51.3 fl (35.1-43.9); Red Blood Count 2.71 M/mm3 (4.2-5.4); White Blood Count 10.7 K/mm3 (4.4-11.0)
[2020-02-07 07:11] LABS: Anion Gap 2 (5-15); BUN 76 mg/dL (7-18); BUN/Creat Ratio 67.9 RATIO (10-20); Chloride 116 mmol/L (98-107); Creatinine, Serum 1.12 mg/dL (0.55-1.02); EST Glomerular Filtration Rate 50 mL/min (>60); Est Glom Filt Rate - Afr Amer 60 mL/min (>60); Estimated Creatinine Clearance 48.38 ml/min; Glucose 90 mg/dL (74-106); Potassium 3.9 mmol/L (3.5-5.1); Sodium Level 147 mmol/L (136-145)
--- NOTE | 2020-02-07 07:45 | PN.SURG_ITS ---
Patient Problems: Active and Suspected Problems (Last Reviewed 02/06/20 @ 09:[address] Dakota Yanes, DO) Upper GI bleeding (Acute) Acute blood loss anemia (Acute) Atrial fibrillation with rapid ventricular response (Acute) Subjective: Hemoglobin in mid eights yesterday around 8 at night - Physical Exam Vitals/I&O's: Vital Signs Temp Pulse Resp BP Pulse Ox 97.6 F L 113 H 18 116/44 L 99 02/07/20 06:10 02/07/20 07:00 02/07/20 06:10 02/07/20 06:10 02/07/20 07:05 Oxygen Flow Rate (L/min) 2.5 Oxygen Delivery Method Room Air Weight: 171 lb 8.314 oz Body Mass Index (BMI) 34.6 Finger Stick Blood Glucose 132 Intake and Output for Last 24 Hours 02/05/20 02/06/20 02/07/20 23:59 23:59 23:59 Intake Total 2579.99 / 2579.99 513.33 / 513.33 Output Total 1050 / 1050 625 / 625 Balance 1529.99 / 1529.99 -111.67 / -111.67 Microbiology Past 72 Hours 02/06/20 11:00 Mucosa - Nasopharyngeal Coronavirus COVID-19 PCR - Final Laboratory Results 02/06/20 07:25: WBC 15.0 H, RBC 3.14 L, Hgb 10.1 L, Hct 30.6 L, MCV 97.5, MCH 32.2 H, MCHC 33.0, RDW Std Deviation 47.8 H, RDW Coeff of Cricket 13.5, Plt Count 302, MPV 11.9, Immature Gran % (Auto) 0.900, Neut % (Auto) 84.5 H, Lymph % (Auto) 7.2 L, [place] % (Auto) 7.3, Eos % (Auto) 0.0, Baso % (Auto) 0.1, Absolute Neuts (auto) 12.7 H, Absolute Lymphs (auto) 1.08, Nucleated RBC % 0.2 02/06/20 07:25: Sodium 145, Potassium 4.2, Chloride 108 H, Carbon Dioxide 27.0, Anion Gap 10, BUN 117 H*, Creatinine 1.64 H, Estim Creat Clear Calc 33.85, Est GFR (MDRD) Af Amer 39 L, Est GFR (MDRD) Non-Af 32 L, BUN/Creatinine Ratio 71.3 H , Glucose 172 H, Calcium 9.9, Troponin I 0.017 02/06/20 07:25: Blood Type A POSITIVE, Antibody Screen NEGATIVE 02/06/20 09:35: Hgb 9.1 L, Hct 28.7 L 02/06/20 13:05: Hgb 8.3 L, Hct 26.3 L 02/06/20 19:13: Hgb 8.5 L, Hct 26.5 L 02/07/20 01:26: Hgb 8.0 L, Hct 25.2 L 02/07/20 06:19: WBC Pending, RBC Pending, Hgb Pending, Hct Pending, MCV Pending, MCH Pending, MCHC Pending, RDW Std Deviation Pending, RDW Coeff of Cricket Pending, Plt Count Pending, Neut % (Auto) Pending, Absolute Neuts (auto) Pending 02/07/20 06:19: Sodium 147 H, Potassium 3.9, Chloride 116 H, Carbon Dioxide 29.0, Anion Gap 2 L, BUN 76 H, Creatinine 1.12 H, Estim Creat Clear Calc 48.38, Est GFR (MDRD) Af Amer 60, Est GFR (MDRD) Non-Af 50 L, BUN/Creatinine Ratio 67.9 H, Glucose 90, Calcium 10.0 Current Medications Acetaminophen (Tylenol) 650 mg PO Q6H PRN PRN PRN Reason: Pain Score 1-10/Temp > 100.7 F Last Admin: 02/06/20 23:42 Dose: 650 mg Documented by: Acetaminophen (Tylenol) 650 mg RECTAL Q4H PRN PRN PRN Reason: Pain Score 1-10/Temp > 100.7 F Albuterol Sulfate (Ventolin Aerosols) 2.5 mg INHALATION Q4H PRN PRN Reason: SOB &/OR WHEEZING Clobetasol Propionate (Temovate Cream (Bkc)) 1 applic TOPICAL BID [facility]; Protocol Last Admin: 02/06/20 20:49 Dose: Not Given Documented by: Dextrose (D50w Syringe) 0 gm IV X1 PRN; Protocol PRN Reason: Hypoglycemia Flecainide Acetate (Tambocor) 50 mg PO Q12 [facility] Last Admin: 02/06/20 20:49 Dose: 50 mg Documented by: Fluticasone Propionate (Flonase Nasal [place]) 1 spray NASAL DAILY [facility] Last Admin: 02/06/20 12:00 Dose: 1 spray Documented by: Glucagon () 1 mg IM .X1 PRN PRN Reason: Hypoglycemia Hydrocortisone (Hytone) 1 applic TOPICAL 4X/DAY PRN PRN; Protocol PRN Reason: RASH/TOPICAL IRRITATION Lactated Ringer's () 1,000 mls @ 100 mls/hr IV .Q10H [facility] Last Admin: 02/07/20 05:07 Dose: 100 mls/hr Documented by: Pantoprazole Sodium 40 mg/ (Sodium Chloride) 110 mls @ 330 mls/hr IV Q12 [facility] Last Infusion: 02/06/20 21:15 Dose: Infused Documented by: Sodium Chloride () 500 mls @ 15 mls/hr IV PRN PRN PRN Reason: Blood Transfusion Sodium Chloride () 250 mls @ 15 mls/hr IV .[id number] PRN PRN Reason: Saline Flush Sodium Chloride () 250 mls @ 15 mls/hr IV .[id number] PRN PRN Reason: Additional IVPB Infusion Nystatin (Mycostatin Powder) 1 applic TOPICAL BID PRN PRN; Protocol PRN Reason: IRRITATION Last Admin: 02/07/20 06:07 Dose: 1 applic Documented by: Ondansetron HCl (Zofran) 4 mg IV Q8H PRN PRN PRN Reason: NAUSEA/VOMITING Phenylephrine HCl (Umesh-Synephrine) 1 spray NASAL QHS [facility] Last Admin: 02/06/20 20:48 Dose: 1 spray Documented by: Sodium Chloride () 10 - 40 ml IV UD PRN PRN Reason: SALINE FLUSH Last Admin: 02/06/20 09:50 Dose: 10 ml Documented by: Medical Necessity - Tobacco Use Smoking Status: Never smoker Assessment/Plan All Active Problems (Last Reviewed 02/06/20 @ 09:[address] Dakota Yanes, DO) Upper GI bleeding (Acute) Acute blood loss anemia (Acute) Atrial fibrillation with rapid ventricular response (Acute) Bradycardia (Acute) Confusion (Resolved) Esophageal stricture (Resolved) Expressive aphasia (Resolved) Hypoxia (Resolved) 79-year-old female with GI bleed, melena, on Eliquis for A. fib last taken last night, anemia EGD this morning. Josiane Velazquez M.D. Pager: [phone] [facility] [address] [place] [address], [address] [place] [address] Office: [phone]
--- NOTE | 2020-02-07 08:05 | IMM_PTH ---
PATIENT: SANTY DE LA CRUZ LOC: [facility] U#:[id number] AGE/SX: 79/F ROOM: [facility] RE02/06/[address]: Dr. Benjamin Erwin MD : 1940 BED: 1 DIS: 02/10/2020 SPEC #: [id number] RECD: 02/08/20 09:48 STATUS: SOUT REQ #: [id number] BROOK: 02/07/20 08:[address]: Josiane Velazquez DEPT: IMMUNOHISTOCHEMISTRY RECD BY: Germaine Saini ENTERED: 02/08/20 09:49 SP TYPE: IMMUNO OTHR DR: MD Dr. Dakota Lopez DO Dr. Tai Chi Kwok, MD Tissues: A - Stomach, NOS Procedures: H Pylori (initial) PHYSICIAN & INSTITUTION [place] [id number] SPECIMEN INFORMATION: Tissue Source: A - Antrum biopsy Clinical Info: Upper GI bleed Specimen Number: [id number] CPT code: 99600 METHODOLOGY: Deparaffinized sections of prefer/formalin-fixed tissue or PAP/DQ stained slides are incubated with monoclonal/polyclonal antibodies/oligonucleotide probes. Localization is made via biotin free immunoperoxidase method. Appropriate controls are performed and reacted as expected. Results on target cell population are indicated in the following table: RESULTS: ANTIBODY / CLONE RESULT Block A H Pylori (polyclonal) negative These tests were developed and their performance characteristics determined by [facility]. They may not have been cleared or approved by the U.S. Food and Drug Administration. The FDA has determined that such clearance or approval is not necessary. INTERPRETATION: A. Antrum biopsy: Negative for Helicobacter pylori organisms. AM:ana 02/10/20
--- NOTE | 2020-02-07 08:05 | EGD_PTH ---
PATIENT: SANTY DE LA CRUZ LOC: [facility] U#:[id number] AGE/SX: 79/F ROOM: [facility] RE02/06/[address]: Dr. Benjamin Erwin MD : 1940 BED: 1 DIS: 02/10/2020 SPEC #: [id number] RECD: 02/07/20 09:32 STATUS: LISA REChristine #: [id number] BROOK: 02/07/20 08:[address]: Josiane Velazquez DEPT: SURGICAL PATHOLOGY RECD BY: Bran Uribe ENTERED: 02/08/20 09:21 SP TYPE: EGD BIOPSY OTHR DR: MD Dr. Dakota Lopez DO Dr. Tai Chi Kwok, MD Tissues: A - Gastric mucous membrane B - Gastric mucous membrane Procedures: Special Stain Group II Special Stain Group I Surgery Specimen Level IV GMS Stain (control) Alcian Blue/PAS (control) HEADER OPERATION: EGD ([facility]) PRE-OP DIAGNOSIS: Upper GI bleed TISSUE SUBMITTED: A - Antrum biopsy for histo and H. pylori, B - GE junction biopsy MICROSCOPIC DIAGNOSIS A. Gastric antrum, biopsy: Mild chronic gastritis. See comment. B. Gastroesophageal junction, biopsy: Junctional mucosa with mild chronic inflammation. Squamous mucosa with mild acute inflammation. Negative for fungal organisms. See comment. AM:ana 02/09/20 COMMENT A. The results of immunohistochemistry for Helicobacter pylori will be reported separately ([id number]). B. Alcian blue/PAS stain with matched control supports the above diagnosis. GMS stain with matched control was used in the evaluation of this case. MICROSCOPIC DESCRIPTION Slides are reviewed. GROSS DESCRIPTION A - Received in fixative is one container labeled with the patient's name and designated antrum biopsy. The specimen consists of one irregular fragment of light ryan soft tissue that measures 0.6 x 0.3 x 0.1 cm. The specimen is totally submitted in one cassette. B - Received in fixative is one container labeled with the patient's name and designated GE junction. The specimen consists of two irregular fragments of light ryan soft tissue that in aggregate measure 0.5 x 0.2 x 0.1 cm. The specimen is totally submitted in one cassette. / AM:ana 02/08/20 TC:5 CPT: 67155 x2, 36808, 05993
--- NOTE | 2020-02-07 09:11 | PCM.PN.HOSP ---
Patient Problems: Active and Suspected Problems (Last Reviewed 02/06/20 @ 09:[address] Dakota Yanes, DO) Upper GI bleeding (Acute) Acute blood loss anemia (Acute) Atrial fibrillation with rapid ventricular response (Acute) Reason for Visit: GI bleed Subjective: EGD today showing an ulcer with adherent clot. Pt tired. Denies abdominal pain. Vitals/I&O's: Vital Signs Temp Pulse Resp BP Pulse Ox 36.3 C L 106 H 18 114/68 100 02/07/20 08:50 02/07/20 08:50 02/07/20 08:50 02/07/20 08:50 02/07/20 08:50 Oxygen Flow Rate (L/min) 2 Oxygen Delivery Method Nasal Cannula Weight: 77.8 kg Body Mass Index (BMI) 34.6 Finger Stick Blood Glucose 132 Intake and Output for Last 24 Hours 02/05/20 02/06/20 02/07/20 23:59 23:59 23:59 Intake Total 2579.99 / 2579.99 513.33 / 513.33 Output Total 1050 / 1050 625 / 625 Balance 1529.99 / 1529.99 -111.67 / -111.67 General: Alert, No apparent distress HEENT: Atraumatic, Normocephalic Oral: Moist Mucosa, No Gingival or Mucosal Lesions/ Ulcerations Neck: No Nodes, Thyroid Normal Size and Texture Lungs: Clear to auscultation, Normal air movement, No rhonchi, No wheeze, No rales Cardiovascular: Regular rate, Regular Rhythm, Normal S1, Normal S2, No murmurs Abdomen: Bowel Sounds Present, Soft, Non Tender, Non-Distended, No Hepato-splenomegaly Extremities: No edema, No Calf Tenderness Psych/Mental Status: Normal Affect, Appropriate Microbiology Past 72 Hours 02/06/20 11:00 Mucosa - Nasopharyngeal Coronavirus COVID-19 PCR - Final Laboratory Results 02/06/20 07:25: Blood Type A POSITIVE, Antibody Screen NEGATIVE 02/06/20 09:35: Hgb 9.1 L, Hct 28.7 L 02/06/20 13:05: Hgb 8.3 L, Hct 26.3 L 02/06/20 19:13: Hgb 8.5 L, Hct 26.5 L 02/07/20 01:26: Hgb 8.0 L, Hct 25.2 L 02/07/20 06:19: WBC 10.7, RBC 2.71 L, Hgb 8.7 L, Hct 27.9 L, MCV 103.0 H D, MCH 32.1 H, MCHC 31.2 L D, RDW Std Deviation 51.3 H, RDW Coeff of Cricket 13.7, Plt Count 212, MPV 12.0, Immature Gran % (Auto) 0.600, Neut % (Auto) 75.1 H, Lymph % (Auto) 16.6 L, [place] % (Auto) 7.4, Eos % (Auto) 0.2, Baso % (Auto) 0.1, Absolute Neuts (auto) 8.0 H, Absolute Lymphs (auto) 1.78, Nucleated RBC % 0 02/07/20 06:19: Sodium 147 H, Potassium 3.9, Chloride 116 H, Carbon Dioxide 29.0, Anion Gap 2 L, BUN 76 H, Creatinine 1.12 H, Estim Creat Clear Calc 48.38, Est GFR (MDRD) Af Amer 60, Est GFR (MDRD) Non-Af 50 L, BUN/Creatinine Ratio 67.9 H, Glucose 90, Calcium 10.0 Current Medications Acetaminophen (Tylenol) 650 mg PO Q6H PRN PRN PRN Reason: Pain Score 1-10/Temp > 100.7 F Last Admin: 02/06/20 23:42 Dose: 650 mg Documented by: Acetaminophen (Tylenol) 650 mg RECTAL Q4H PRN PRN PRN Reason: Pain Score 1-10/Temp > 100.7 F Albuterol Sulfate (Ventolin Aerosols) 2.5 mg INHALATION Q4H PRN PRN Reason: SOB &/OR WHEEZING Clobetasol Propionate (Temovate Cream (Bkc)) 1 applic TOPICAL BID [facility]; Protocol Last Admin: 02/06/20 20:49 Dose: Not Given Documented by: Dextrose (D50w Syringe) 0 gm IV X1 PRN; Protocol PRN Reason: Hypoglycemia Flecainide Acetate (Tambocor) 50 mg PO Q12 [facility] Last Admin: 02/06/20 20:49 Dose: 50 mg Documented by: Fluticasone Propionate (Flonase Nasal [place]) 1 spray NASAL DAILY [facility] Last Admin: 02/06/20 12:00 Dose: 1 spray Documented by: Glucagon () 1 mg IM .X1 PRN PRN Reason: Hypoglycemia Hydrocortisone (Hytone) 1 applic TOPICAL 4X/DAY PRN PRN; Protocol PRN Reason: RASH/TOPICAL IRRITATION Lactated Ringer's () 1,000 mls @ 100 mls/hr IV .Q10H [facility] Last Admin: 02/07/20 05:07 Dose: 100 mls/hr Documented by: Pantoprazole Sodium 40 mg/ (Sodium Chloride) 110 mls @ 330 mls/hr IV Q12 [facility] Last Infusion: 02/06/20 21:15 Dose: Infused Documented by: Sodium Chloride () 500 mls @ 15 mls/hr IV PRN PRN PRN Reason: Blood Transfusion Sodium Chloride () 250 mls @ 15 mls/hr IV .[id number] PRN PRN Reason: Saline Flush Sodium Chloride () 250 mls @ 15 mls/hr IV .[id number] PRN PRN Reason: Additional IVPB Infusion Nystatin (Mycostatin Powder) 1 applic TOPICAL BID PRN PRN; Protocol PRN Reason: IRRITATION Last Admin: 02/07/20 06:07 Dose: 1 applic Documented by: Ondansetron HCl (Zofran) 4 mg IV Q8H PRN PRN PRN Reason: NAUSEA/VOMITING Phenylephrine HCl (Umesh-Synephrine) 1 spray NASAL QHS [facility] Last Admin: 02/06/20 20:48 Dose: 1 spray Documented by: Sodium Chloride () 10 - 40 ml IV UD PRN PRN Reason: SALINE FLUSH Last Admin: 02/06/20 09:50 Dose: 10 ml Documented by: Sucralfate (Carafate) 1 gm PO 1HR_ACHS [facility] STROKE Vital Signs/Narrative: Vital Signs Temp Pulse Resp BP Pulse Ox 02/07/20 08:50 36.3 C L 106 H 18 114/68 100 02/07/20 08:31 36.3 C L 83 18 99/70 100 02/07/20 08:25 105 H 16 93/65 100 02/07/20 08:20 102 H 18 95/62 100 02/07/20 08:15 121 H 16 99/55 L 100 02/07/20 08:11 36.4 C L 72 16 83/52 L 100 02/07/20 07:05 99 02/07/20 07:00 113 H 02/07/20 06:10 36.4 C L 111 H 18 116/44 L 99 Medical Necessity - Tobacco Use Smoking Status: Never smoker Assessment/Plan All Active Problems (Last Reviewed 02/06/20 @ 09:[address] Dakota Yanes, DO) Upper GI bleeding (Acute) Acute blood loss anemia (Acute) Atrial fibrillation with rapid ventricular response (Acute) Bradycardia (Acute) Confusion (Resolved) Esophageal stricture (Resolved) Expressive aphasia (Resolved) Hypoxia (Resolved) 1. GI bleed: Suspect upper. Exacerbated by apixaban. DW Dr. Velazquez, PUD with adherent clot that could not be removed. No anticoagulation until she follows up in the coming weeks and no ASA for 1 week. Continue PPI. 2. Acute blood loss anemia: Secondary to above. Hemoglobin 10.1. No indication to transfuse at this time. Patient has been typed and screened already. Keep Hg greater than or equal to 8 given known cardiac history. 3. Atrial fibrillation with RVR: Likely reactive with the acute blood loss anemia. Would continue with the flecainide for now. Resume atenolol. No anticoagulation given PUD and GI bleed for now (see above) 4. VTE prophylaxis with SCDs as chemical prophylaxis contraindicated in light of the acute hemorrhage. 5. Advanced care planning: Discussed with patient. Patient wished to be full CODE STATUS. 6. Gout: resume febuxostat. hold colchicine and prednisone for now. 7. HFpEF: EF 65% from 08/17/2019. Chronic and compensated. Continue to hold furosemide given low normal BP at this time. Consider restarting if BP remains stable. Also hold potassium while off furosemide Inpatient E&M: 62763 Subs Hosp L2
[2020-02-07] MEDS: Fluticasone 0.05% 1 SPRAY NASAL.SRY NASAL (09:14)
[2020-02-07] MEDS: Flecainide 100 MG Tablet 50 MG PO ×2 (09:15→22:31)
--- NOTE | 2020-02-07 09:24 | OP.EGD_ITS ---
Patient Name: Kalina Casey Procedure Date: 02/07/2020 7:14 AM Date of : 1940 Age: 79 Procedure: Upper GI endoscopy Indications: Melena Providers: Josiane Velazquez MD Medicines: Monitored Anesthesia Care Patient Profile: This is an 79 year old female. Complications: No immediate complications. Procedure: Pre-Anesthesia Assessment: - Prior to the procedure, a History and Physical was performed, and patient medications and allergies were reviewed. The patient's tolerance of previous anesthesia was also reviewed. The risks and benefits of the procedure and the sedation options and risks were discussed with the patient. All questions were answered, and informed consent was obtained. Prior Anticoagulants: The patient has taken Eliquis (apixaban), last dose was 2 days prior to procedure. ASA Grade Assessment: Per anesthesia. After reviewing the risks and benefits, the patient was deemed in satisfactory condition to undergo the procedure. After obtaining informed consent, the endoscope was passed under direct vision. Throughout the procedure, the patient's blood pressure, pulse, and oxygen saturations were monitored continuously. The gastroscope was introduced through the mouth, and advanced to the second part of duodenum. The upper GI endoscopy was accomplished without difficulty. The patient tolerated the procedure well. Scope In: 7:58:59 AM Scope Out: 8:06:43 AM Total Procedure Duration Time 0 hours 7 minutes 44 seconds Findings: The Z-line was irregular and was found 40 cm from the incisors. Biopsies were taken with a cold forceps for histology. One non-bleeding cratered gastric ulcer with adherent clot was found in the prepyloric region of the stomach. The lesion was 4 mm in largest dimension. Biopsies were taken with a cold forceps for histology. Biopsies were taken with a cold forceps for Helicobacter pylori cultures. Localized mildly erythematous mucosa without active bleeding was found in the duodenal bulb. The exam of the duodenum was otherwise normal. A small hiatal hernia was present. Impression: - Z-line irregular, 40 cm from the incisors. Biopsied. - Non-bleeding gastric ulcer with adherent clot. Biopsied. - Erythematous duodenopathy. - Small hiatal hernia. Recommendation: - Await pathology results. - Return patient to hospital [facility] for ongoing care. - Clear liquid diet. - - Use Protonix (pantoprazole) 40 mg PO BID at discharge - Use sucralfate tablets 1 gram PO QID for 1 month. - OK to restart aspirin in 5-7 days if hemoglobin improving and no further melena; hold eliquis for 3 weeks, may rescope before resuming. - No aspirin, ibuprofen, naproxen, or other non-steroidal anti-inflammatory drugs for 5 days. Procedure Code(s): --- Professional --- 68380, Esophagogastroduodenoscopy, flexible, transoral; with biopsy, single or multiple Diagnosis Code(s): --- Professional --- K22.8, Other specified diseases of esophagus K25.4, Chronic or unspecified gastric ulcer with hemorrhage K31.89, Other diseases of stomach and duodenum K44.9, Diaphragmatic hernia without obstruction or gangrene K92.1, Melena (includes Hematochezia) CPT copyright 2017 [employer]. All rights reserved. The codes documented in this report are preliminary and upon journalism professor review may be revised to meet current compliance requirements. MD Josiane Larsen MD 02/07/2020 9:24:00 AM This report has been signed electronically. Number of Addenda: 0 Note Initiated On: 02/07/2020 7:14 AM
--- NOTE | 2020-02-07 09:24 | OP.CCLET_ITS ---
02/07/2020 Denny Romano MD [address] [place] [address] Re : Upper GI endoscopy procedure for Kalina Casey Dear Dr. Romano This procedure was performed on Friday, February 07, 2020. My impressions and recommendations are as follows: Impressions : - Z-line irregular, 40 cm from the incisors. Biopsied. - Non-bleeding gastric ulcer with adherent clot. Biopsied. - Erythematous duodenopathy. - Small hiatal hernia. Recommendations : - Await pathology results. - Return patient to hospital [facility] for ongoing care. - Clear liquid diet. - - Use Protonix (pantoprazole) 40 mg PO BID at discharge - Use sucralfate tablets 1 gram PO QID for 1 month. - OK to restart aspirin in 5-7 days if hemoglobin improving and no further melena; hold eliquis for 3 weeks, may rescope before resuming. - No aspirin, ibuprofen, naproxen, or other non-steroidal anti-inflammatory drugs for 5 days. My findings are described in the full procedure note, which is enclosed. If I can be of further assistance, please feel free to contact me at Doctor phone number(s): , Work: . Sincerely, MD Josiane Larsen MD 02/07/2020 9:24:00 AM This report has been signed electronically.
[2020-02-07] MEDS: Atenolol 25 MG Tablet PO ×2 (09:28→22:32)
[2020-02-07] MEDS: 0.9% Saline Lock 10 ML Syringe IV (09:39)
[2020-02-07] MEDS: Febuxostat 40 MG TABLET 80 MG PO (10:55)
[2020-02-07] MEDS: Sucralfate 1 GM Tablet PO ×3 (10:56→22:30)
[2020-02-07] MEDS: Acetaminophen 325 MG Tablet 650 MG PO (15:19)
[2020-02-07] MEDS: Phenylephrine 0.25% 15 ML NASAL.SRY 1 SPRAY NASAL (22:31)
[2020-02-08] VITALS (17 sets, daily range): BP systolic 100–134; BP diastolic 56–80; PULSE 89–117; RESP 14–19; TEMP 36.2–37.1; O2SAT 98–100
--- NOTE | 2020-02-08 00:03 | NURSING ---
Pt. report given to Marisel AQUINO who is taking over care for this pt.
--- NOTE | 2020-02-08 00:18 | NURSING ---
Verbal report received from Itz Tobar RN. This RN resuming care of pt at this time.
[2020-02-08 05:19] LABS: Eosinophil# 0.16 X10^3/uL; Eosinophils% 1.6 % (0-5); Lymphocyte % 13.6 % (19-41); Mean Platelet Vol. 11.6 fl (6.2-12.0); Monocyte% 6.8 % (0-10); NRBC Flagged by Analyzer 0.2 % (0-5); Neutrophil # 7.95 X10^3/uL (2.7-7.7); Neutrophil % 77.2 % (47-70); Platelet Count 186 K/mm3 (150-450); RBC Distribution Width CV 13.2 % (11.6-14.6); RBC Distribution Width SD 48.3 fl (35.1-43.9); White Blood Count 10.3 K/mm3 (4.4-11.0)
[2020-02-08 05:37] LABS: Anion Gap 3 (5-15); BUN 49 mg/dL (7-18); BUN/Creat Ratio 50.1 RATIO (10-20); Calcium,Total 9.7 mg/dL (8.5-10.1); Chloride 114 mmol/L (98-107); Creatinine, Serum 0.98 mg/dL (0.55-1.02); EST Glomerular Filtration Rate 58 mL/min (>60); Est Glom Filt Rate - Afr Amer 70 mL/min (>60); Glucose 98 mg/dL (74-106); Potassium 3.9 mmol/L (3.5-5.1); Sodium Level 146 mmol/L (136-145)
[2020-02-08] MEDS: Levothyroxine 100 MCG Tablet PO (06:27)
[2020-02-08] MEDS: Sucralfate 1 GM Tablet PO ×4 (06:27→21:41)
--- NOTE | 2020-02-08 08:34 | PCM.PN.HOSP ---
Patient Problems: Active and Suspected Problems (Last Reviewed 02/06/20 @ 09:[address] Dakota Yanes, DO) Upper GI bleeding (Acute) Acute blood loss anemia (Acute) Atrial fibrillation with rapid ventricular response (Acute) Reason for Visit: GI bleed and symptomatic anemia Subjective: Patient is an 79-year-old lady with history of paroxysmal A. fib on systemic anticoagulation with apixaban who presented with melena. Patient underwent EGD on 02/07/2020 which demonstrated a gastric ulcer with an adherent clot Patient seen complains of feeling excessively tired. Hemoglobin did drop from 8.6-8.0 decision was made to transfuse patient with 1 unit PRBC Objective: GENERAL: cooperative HEENT: Atraumatic; EYES; Anicteric, Normal Conjunctiva NECK; supple, normal thyroid, RESPIRATORY: Diminished to auscultation CARDIOVASCULAR: Irregular S1 S2, GI: soft, normoactive bowel sounds, : No Renal angle tenderness; EXTREMITIES: No edema, no clubbing, MUSCULOSKELETAL: no muscle waisting NEURO: Awake; no lateralizing signs. SKIN: No Rash PSYCH; Flat affect Vitals/I&O's: Vital Signs Temp Pulse Resp BP Pulse Ox 97.8 F 90 17 113/68 100 02/08/20 06:22 02/08/20 06:54 02/08/20 06:22 02/08/20 06:22 02/08/20 06:22 Oxygen Flow Rate (L/min) 3 Oxygen Delivery Method Nasal Cannula Weight: 78.4 kg Body Mass Index (BMI) 34.6 Finger Stick Blood Glucose 132 Intake and Output for Last 24 Hours 02/06/20 02/07/20 02/08/20 23:59 23:59 23:59 Intake Total 2579.99 / 2579.99 1701.66 / 1701.66 250 / 250 Output Total 1050 / 1050 1925 / 1925 350 / 350 Balance 1529.99 / 1529.99 -223.34 / -223.34 -100 / -100 Microbiology Past 72 Hours 02/06/20 11:00 Mucosa - Nasopharyngeal Coronavirus COVID-19 PCR - Final Laboratory Results 02/08/20 05:10: WBC 10.3, RBC 2.50 L, Hgb 8.0 L, Hct 25.0 L, MCV 100.0 H, MCH 32.0, MCHC 32.0, RDW Std Deviation 48.3 H, RDW Coeff of Cricket 13.2, Plt Count 186, MPV 11.6, Immature Gran % (Auto) 0.800, Neut % (Auto) 77.2 H, Lymph % (Auto) 13.6 L, [place] % (Auto) 6.8, Eos % (Auto) 1.6, Baso % (Auto) 0.0, Absolute Neuts (auto) 8.0 H, Absolute Lymphs (auto) 1.40, Nucleated RBC % 0.2 02/08/20 05:10: Sodium 146 H, Potassium 3.9, Chloride 114 H, Carbon Dioxide 29.0, Anion Gap 3 L, BUN 49 H, Creatinine 0.98, Estim Creat Clear Calc 55.30, Est GFR (MDRD) Af Amer 70, Est GFR (MDRD) Non-Af 58 L, BUN/Creatinine Ratio 50.1 H, Glucose 98, Calcium 9.7 Current Medications Acetaminophen (Tylenol) 650 mg PO Q6H PRN PRN PRN Reason: Pain Score 1-10/Temp > 100.7 F Last Admin: 02/07/20 15:19 Dose: 650 mg Documented by: Acetaminophen (Tylenol) 650 mg RECTAL Q4H PRN PRN PRN Reason: Pain Score 1-10/Temp > 100.7 F Albuterol Sulfate (Ventolin Aerosols) 2.5 mg INHALATION Q4H PRN PRN Reason: SOB &/OR WHEEZING Atenolol (Tenormin (Beta Ivan)) 25 mg PO BID [facility] Last Admin: 02/07/20 22:32 Dose: 25 mg Documented by: Clobetasol Propionate (Temovate Cream (Bkc)) 1 applic TOPICAL BID [facility]; Protocol Last Admin: 02/07/20 22:32 Dose: Not Given Documented by: Dextrose (D50w Syringe) 0 gm IV X1 PRN; Protocol PRN Reason: Hypoglycemia Febuxostat (Uloric) 80 mg PO DAILY [facility] Last Admin: 02/07/20 10:55 Dose: 80 mg Documented by: Flecainide Acetate (Tambocor) 50 mg PO Q12 [facility] Last Admin: 02/07/20 22:31 Dose: 50 mg Documented by: Fluticasone Propionate (Flonase Nasal [place]) 1 spray NASAL DAILY [facility] Last Admin: 02/07/20 09:14 Dose: 1 spray Documented by: Glucagon () 1 mg IM .X1 PRN PRN Reason: Hypoglycemia Hydrocortisone (Hytone) 1 applic TOPICAL 4X/DAY PRN PRN; Protocol PRN Reason: RASH/TOPICAL IRRITATION Pantoprazole Sodium 40 mg/ (Sodium Chloride) 110 mls @ 330 mls/hr IV Q12 [facility] Last Infusion: 02/07/20 22:50 Dose: Infused Documented by: Sodium Chloride () 500 mls @ 15 mls/hr IV PRN PRN PRN Reason: Blood Transfusion Sodium Chloride () 250 mls @ 15 mls/hr IV .[id number] PRN PRN Reason: Saline Flush Sodium Chloride () 250 mls @ 15 mls/hr IV .[id number] PRN PRN Reason: Additional IVPB Infusion Levothyroxine Sodium (Synthroid) 100 mcg PO [id number]@0600 [facility] Last Admin: 02/08/20 06:27 Dose: 100 mcg Documented by: Nystatin (Mycostatin Powder) 1 applic TOPICAL BID PRN PRN; Protocol PRN Reason: IRRITATION Last Admin: 02/07/20 06:07 Dose: 1 applic Documented by: Ondansetron HCl (Zofran) 4 mg IV Q8H PRN PRN PRN Reason: NAUSEA/VOMITING Phenylephrine HCl (Umesh-Synephrine) 1 spray NASAL QHS [facility] Last Admin: 02/07/20 22:31 Dose: 1 spray Documented by: Sodium Chloride () 10 - 40 ml IV UD PRN PRN Reason: SALINE FLUSH Last Admin: 02/07/20 09:39 Dose: 10 ml Documented by: Sucralfate (Carafate) 1 gm PO 1HR_ACHS [facility] Last Admin: 02/08/20 06:27 Dose: 1 gm Documented by: STROKE Vital Signs/Narrative: Vital Signs Temp Pulse Resp BP Pulse Ox 02/08/20 06:54 90 02/08/20 06:22 97.8 F 93 17 113/68 100 Medical Necessity - Tobacco Use Smoking Status: Never smoker Assessment/Plan All Active Problems (Last Reviewed 02/06/20 @ 09:[address] Dakota Yanes, DO) Upper GI bleeding (Acute) Acute blood loss anemia (Acute) Atrial fibrillation with rapid ventricular response (Acute) Bradycardia (Acute) Confusion (Resolved) Esophageal stricture (Resolved) Expressive aphasia (Resolved) Hypoxia (Resolved) Patient is an 79-year-old lady with history of paroxysmal A. fib on systemic anticoagulation with apixaban who presented with melena. Patient underwent EGD on 02/07/2020 which demonstrated a gastric ulcer with an adherent clot . Upper GI bleed ?Patient underwent EGD on 02/06/1930 which demonstrated nonbleeding gastric ulcer with adherent clot which was biopsied. Patient was also noted to have erythematous to adenopathy with small hiatal hernia. It was thought patient apixaban might of exacerbated her GI bleed has subsequently been stopped. Patient placed on PPI 2. Acute blood loss anemia ?With patient being symptomatic an order was given for patient to be transfused with 1 unit PRBC with posttransfusion H&H ordered for a.m. 3. Paroxysmal A. fib with RVR ?It was felt patient anemia contributing did continue patient's rate controlling agents including flecainide. Atenolol was held in view of relatively low blood pressure 4. Essential hypertension ?Patient BP meds held in view of relatively low BP this a.m. 5. Gout ?Patient is on febuxostat 6. Chronic congestive heart failure with preserved ejection fraction ?EF 65% from an echo obtained on 08/17/2019. Currently compensated. Patient is on Lasix at home held in view of relatively low blood pressure 7. DVT prophylaxis ?Chemoprophylaxis contraindicated in view of patient presentation CODE STATUS full code Inpatient E&M: 27220 Subs Hosp L2
[2020-02-08] MEDS: Febuxostat 40 MG TABLET 80 MG PO (08:38)
[2020-02-08] MEDS: Fluticasone 0.05% 1 SPRAY NASAL.SRY NASAL (08:39)
[2020-02-08] MEDS: Clobetasol Propionate 0.05% Cream 1 APPLIC TOPICAL (08:40)
[2020-02-08] MEDS: Flecainide 100 MG Tablet 50 MG PO ×2 (09:31→21:42)
[2020-02-08] MEDS: Acetaminophen 325 MG Tablet 650 MG PO ×2 (11:13→23:54)
--- NOTE | 2020-02-08 11:19 | CASEMGMT ---
MILES ABRAHAM assessment: Face to Face with patient for initial transition planning/care coordination assessment. MILES ABRAHAM introduced self and role at [facility], pt voices understanding and consents to assessment at this time. Pt is hard of hearing. Pt is A/Ox4 at this time and answers all questions appropriately at this time. Care providers, pharmacy, and demographics verified at this time. Presentation: Hx Afib, on eliquis-SOB, dk red stools and some bright red bleeding Admitting dx: GI bleed PCP: Juan Antonio Specialists: Art, cardio; Tyrell, catering administrative assistant in [place]; King, lighting fixtures decorator Preferred Pharmacy: [facility] Insurance: [employer] Prescription Benefit: [employer] Living Will/HPOA: Pt does have LW/HPOA and is aware that they are on file at [facility] at this time. Pt's , Hector Casey, is HPOA. LNOK: Hector Casey, ; Prakash Casey, son Living Arrangements: Pt states lives with and son in 1 story home and states no concerns at home at this time. Pt states son assists with ADL's, if needed. Transportation: Pt states /son drive and states no transportation concerns at this time. DME/HHC: Pt states has a walk-in shower, walker, and 2.5liters home oxygen thru [facility]. Pt states no need for any further DME at this time. Pt states no hx of HHC or SNF in the past, but pt is active with [facility]. Call to Moncho at [facility] to notify of pt admission, voices understanding. Pt states no concerns with going home at time of discharge. Pt is retired. Pt states does not smoke or drink ETOH. Pt states no further concerns/needs at this time. CM to follow for any further discharge planning/needs. Advised pt to ask for CM if any further questions/concerns/needs arise, voices understanding. Pt Goal: Home Plan: [place] MILES ABRAHAM
--- NOTE | 2020-02-08 12:46 | CASEMGMT ---
Pt is aware that LW/POA forms are not on chart. She informed CM that her is Healthcare POA. KEERTHI Chopra
[2020-02-08] MEDS: Atenolol 25 MG Tablet PO (21:43)
[2020-02-08] MEDS: Phenylephrine 0.25% 15 ML NASAL.SRY 1 SPRAY NASAL (21:44)
[2020-02-08] MEDS: 0.9% Saline Lock 10 ML Syringe IV (21:48)
[2020-02-09] VITALS (12 sets, daily range): BP systolic 108–125; BP diastolic 57–91; PULSE 93–121; RESP 16–19; TEMP 36.6–37; O2SAT 93–99
[2020-02-09 05:34] LABS: Hematocrit 28.1 % (37-47); Hemoglobin 9.2 g/dL (12.0-15.0); Mean Corp Hgb Conc 32.7 g/dL (32-36); Mean Corpuscular Hgb 31.7 pg (27.0-32.0); Mean Corpuscular Volume 96.9 fL (81-99); Mean Platelet Vol. 11.5 fl (6.2-12.0); Platelet Count 192 K/mm3 (150-450); RBC Distribution Width SD 49.3 fl (35.1-43.9); White Blood Count 12.6 K/mm3 (4.4-11.0)
[2020-02-09 05:54] LABS: Anion Gap 4 (5-15); BUN 33 mg/dL (7-18); Calcium,Total 9.6 mg/dL (8.5-10.1); Chloride 111 mmol/L (98-107); Creatinine, Serum 1.03 mg/dL (0.55-1.02); EST Glomerular Filtration Rate 55 mL/min (>60); Est Glom Filt Rate - Afr Amer 66 mL/min (>60); Estimated Creatinine Clearance 53.02 ml/min; Glucose 107 mg/dL (74-106); Magnesium 1.8 mg/dL (1.6-2.6); Sodium Level 143 mmol/L (136-145)
[2020-02-09] MEDS: Sucralfate 1 GM Tablet PO ×4 (06:17→21:20)
[2020-02-09] MEDS: Levothyroxine 100 MCG Tablet PO (06:17)
[2020-02-09] MEDS: Fluticasone 0.05% 1 SPRAY NASAL.SRY NASAL (08:43)
[2020-02-09] MEDS: Flecainide 100 MG Tablet 50 MG PO ×2 (08:44→21:21)
[2020-02-09] MEDS: Atenolol 25 MG Tablet PO ×2 (08:44→21:20)
[2020-02-09] MEDS: Febuxostat 40 MG TABLET 80 MG PO (08:45)
--- NOTE | 2020-02-09 09:12 | PCM.PN.HOSP ---
Patient Problems: Active and Suspected Problems (Last Reviewed 02/06/20 @ 09:[address] Dakota Yanes, DO) Upper GI bleeding (Acute) Acute blood loss anemia (Acute) Atrial fibrillation with rapid ventricular response (Acute) Reason for Visit: Follow-up upper GI bleed Subjective: Hemoglobin came up from 8-9.2. Complains of feeling weak this a.m. Patient to undergo PT/OT eval and treatment this a.m. Objective: GENERAL: cooperative HEENT: Atraumatic; EYES; Anicteric, Normal Conjunctiva NECK; supple, normal thyroid, RESPIRATORY: Diminished to auscultation CARDIOVASCULAR: Irregular S1 S2, GI: soft, normoactive bowel sounds, : No Renal angle tenderness; EXTREMITIES: No edema, no clubbing, MUSCULOSKELETAL: no muscle waisting NEURO: Awake; no lateralizing signs. SKIN: No Rash PSYCH; Flat affect Vitals/I&O's: Vital Signs Temp Pulse Resp BP Pulse Ox 98.0 F 102 H 18 110/57 L 93 02/09/20 08:42 02/09/20 08:42 02/09/20 08:42 02/09/20 08:42 02/09/20 08:42 Oxygen Flow Rate (L/min) 2 Oxygen Delivery Method Room Air Weight: 79.2 kg Body Mass Index (BMI) 34.6 Finger Stick Blood Glucose 132 Intake and Output for Last 24 Hours 02/07/20 02/08/20 02/09/20 23:59 23:59 23:59 Intake Total 1701.66 / 1701.66 1820 / 1820 Output Total 1925 / 1925 850 / 850 Balance -223.34 / -223.34 970 / 970 Microbiology Past 72 Hours 02/06/20 11:00 Mucosa - Nasopharyngeal Coronavirus COVID-19 PCR - Final Laboratory Results 02/06/20 07:25: Crossmatch See Detail 02/09/20 05:28: WBC 12.6 H, RBC 2.90 L, Hgb 9.2 L, Hct 28.1 L, MCV 96.9, MCH 31.7, MCHC 32.7, RDW Std Deviation 49.3 H, RDW Coeff of Cricket 14.0, Plt Count 192, MPV 11.5 02/09/20 05:28: Sodium 143, Potassium 4.0, Chloride 111 H, Carbon Dioxide 28.0, Anion Gap 4 L, BUN 33 H, Creatinine 1.03 H, Estim Creat Clear Calc 53.02, Est GFR (MDRD) Af Amer 66, Est GFR (MDRD) Non-Af 55 L, BUN/Creatinine Ratio 32.0 H, Glucose 107 H, Calcium 9.6, Magnesium 1.8 Current Medications Acetaminophen (Tylenol) 650 mg PO Q6H PRN PRN PRN Reason: Pain Score 1-10/Temp > 100.7 F Last Admin: 02/08/20 23:54 Dose: 650 mg Documented by: Acetaminophen (Tylenol) 650 mg RECTAL Q4H PRN PRN PRN Reason: Pain Score 1-10/Temp > 100.7 F Albuterol Sulfate (Ventolin Aerosols) 2.5 mg INHALATION Q4H PRN PRN Reason: SOB &/OR WHEEZING Atenolol (Tenormin (Beta Ivan)) 25 mg PO BID [facility] Last Admin: 02/09/20 08:44 Dose: 25 mg Documented by: Clobetasol Propionate (Temovate Cream (Bkc)) 1 applic TOPICAL BID [facility]; Protocol Last Admin: 02/09/20 08:45 Dose: Not Given Documented by: Dextrose (D50w Syringe) 0 gm IV X1 PRN; Protocol PRN Reason: Hypoglycemia Febuxostat (Uloric) 80 mg PO DAILY [facility] Last Admin: 02/09/20 08:45 Dose: 80 mg Documented by: Flecainide Acetate (Tambocor) 50 mg PO Q12 [facility] Last Admin: 02/09/20 08:44 Dose: 50 mg Documented by: Fluticasone Propionate (Flonase Nasal [place]) 1 spray NASAL DAILY [facility] Last Admin: 02/09/20 08:43 Dose: 1 spray Documented by: Glucagon () 1 mg IM .X1 PRN PRN Reason: Hypoglycemia Hydrocortisone (Hytone) 1 applic TOPICAL 4X/DAY PRN PRN; Protocol PRN Reason: RASH/TOPICAL IRRITATION Pantoprazole Sodium 40 mg/ (Sodium Chloride) 110 mls @ 330 mls/hr IV Q12 [facility] Last Admin: 02/09/20 08:43 Dose: 330 mls/hr Documented by: Sodium Chloride () 500 mls @ 15 mls/hr IV PRN PRN PRN Reason: Blood Transfusion Sodium Chloride () 250 mls @ 15 mls/hr IV .[id number] PRN PRN Reason: Saline Flush Sodium Chloride () 250 mls @ 15 mls/hr IV .[id number] PRN PRN Reason: Additional IVPB Infusion Levothyroxine Sodium (Synthroid) 100 mcg PO MoTuWeThFrSa@0600 [facility] Last Admin: 02/09/20 06:17 Dose: 100 mcg Documented by: Nystatin (Mycostatin Powder) 1 applic TOPICAL BID PRN PRN; Protocol PRN Reason: IRRITATION Last Admin: 02/07/20 06:07 Dose: 1 applic Documented by: Ondansetron HCl (Zofran) 4 mg IV Q8H PRN PRN PRN Reason: NAUSEA/VOMITING Phenylephrine HCl (Umesh-Synephrine) 1 spray NASAL QHS [facility] Last Admin: 02/08/20 21:44 Dose: 1 spray Documented by: Sodium Chloride () 10 - 40 ml IV UD PRN PRN Reason: SALINE FLUSH Last Admin: 02/08/20 21:48 Dose: 10 ml Documented by: Sucralfate (Carafate) 1 gm PO 1HR_ACHS [facility] Last Admin: 02/09/20 06:17 Dose: 1 gm Documented by: STROKE Vital Signs/Narrative: Vital Signs Temp Pulse Resp BP Pulse Ox 02/09/20 08:42 98.0 F 102 H 18 110/57 L 93 02/09/20 07:45 98 02/09/20 06:54 93 Medical Necessity - Tobacco Use Smoking Status: Never smoker Assessment/Plan All Active Problems (Last Reviewed 02/06/20 @ 09:[address] Dakota Yanes, DO) Upper GI bleeding (Acute) Acute blood loss anemia (Acute) Atrial fibrillation with rapid ventricular response (Acute) Bradycardia (Acute) Confusion (Resolved) Esophageal stricture (Resolved) Expressive aphasia (Resolved) Hypoxia (Resolved) Patient is an 79-year-old lady with history of paroxysmal A. fib on systemic anticoagulation with apixaban who presented with melena. Patient underwent EGD on 02/07/2020 which demonstrated a gastric ulcer with an adherent clot 1. Upper GI bleed ?Patient underwent EGD on 02/06/1930 which demonstrated nonbleeding gastric ulcer with adherent clot which was biopsied. Patient was also noted to have erythematous to adenopathy with small hiatal hernia. It was thought patient apixaban might of exacerbated her GI bleed has subsequently been stopped. Patient placed on PPI 2. Acute blood loss anemia ?With patient being symptomatic an order was given for patient to be transfused with 1 unit PRBC with posttransfusion H&H ordered for a.m. ?02/09/2020: Hemoglobin up to 9.2 3. Paroxysmal A. fib with RVR ?It was felt patient anemia contributing did continue patient's rate controlling agents including flecainide. Atenolol was held in view of relatively low blood pressure 4. Essential hypertension ?Patient BP meds held in view of relatively low BP this a.m. 5. Gout ?Patient is on febuxostat 6. Chronic congestive heart failure with preserved ejection fraction ?EF 65% from an echo obtained on 08/17/2019. Currently compensated. Patient is on Lasix at home held in view of relatively low blood pressure 7. DVT prophylaxis ?Chemoprophylaxis contraindicated in view of patient presentation 8. Physical deconditioning - Requested for PT OT eval and social work program coordinator to assist with discharge planning CODE STATUS full code Inpatient E&M: 84232 Subs Hosp L2
[2020-02-09] MEDS: Acetaminophen 325 MG Tablet 650 MG PO (10:15)
--- NOTE | 2020-02-09 17:35 | NURSING ---
Updated patient's son, Prakash, on patient status. He is requesting CM/SW call him in regards to discharge planning.
[2020-02-09] MEDS: Phenylephrine 0.25% 15 ML NASAL.SRY 1 SPRAY NASAL (21:22)
[2020-02-09] MEDS: 0.9% Saline Lock 10 ML Syringe IV (21:23)
[2020-02-10] MEDS: Acetaminophen 325 MG Tablet 650 MG PO ×2 (00:09→09:10)
[2020-02-10 02:45] VITALS: BP 117/68; PULSE 99; RESP 19; TEMP 36.9; O2SAT 99
[2020-02-10 03:08] VITALS: PULSE 86
[2020-02-10 06:11] LABS: Hematocrit 27.9 % (37-47); Hemoglobin 9.2 g/dL (12.0-15.0); Mean Corpuscular Hgb 32.3 pg (27.0-32.0); Mean Corpuscular Volume 97.9 fL (81-99); Mean Platelet Vol. 12.1 fl (6.2-12.0); Platelet Count 200 K/mm3 (150-450); RBC Distribution Width CV 13.8 % (11.6-14.6); RBC Distribution Width SD 48.7 fl (35.1-43.9); Red Blood Count 2.85 M/mm3 (4.2-5.4); White Blood Count 12.4 K/mm3 (4.4-11.0)
[2020-02-10] MEDS: Levothyroxine 100 MCG Tablet PO (06:19)
[2020-02-10] MEDS: Sucralfate 1 GM Tablet PO ×2 (06:19→11:12)
[2020-02-10 06:39] LABS: Anion Gap 6 (5-15); BUN 27 mg/dL (7-18); BUN/Creat Ratio 23.5 RATIO (10-20); Calcium,Total 9.5 mg/dL (8.5-10.1); Chloride 111 mmol/L (98-107); Creatinine, Serum 1.15 mg/dL (0.55-1.02); EST Glomerular Filtration Rate 48 mL/min (>60); Est Glom Filt Rate - Afr Amer 58 mL/min (>60); Estimated Creatinine Clearance 48.03 ml/min; Glucose 125 mg/dL (74-106); Potassium 3.7 mmol/L (3.5-5.1); Sodium Level 144 mmol/L (136-145)
[2020-02-10 07:00] VITALS: PULSE 97
[2020-02-10 07:29] VITALS: O2SAT 96
[2020-02-10 08:45] VITALS: BP 106/65; PULSE 75; RESP 18; TEMP 36.8; O2SAT 97
[2020-02-10] MEDS: Fluticasone 0.05% 1 SPRAY NASAL.SRY NASAL (09:10)
[2020-02-10] MEDS: Febuxostat 40 MG TABLET 80 MG PO (09:11)
[2020-02-10] MEDS: Flecainide 100 MG Tablet 50 MG PO (09:11)
[2020-02-10] MEDS: Atenolol 25 MG Tablet PO (09:11)
[2020-02-10] MEDS: Clobetasol Propionate 0.05% Cream 1 APPLIC TOPICAL (09:12)
--- NOTE | 2020-02-10 10:45 | PCM.DC ---
- Discharge Diagnoses Current Active Problems: Current Active and Chronic Problems (Last Reviewed 02/06/20 @ 09:[address] Dakota Yanes, DO) Upper GI bleeding (Acute) Acute blood loss anemia (Acute) Atrial fibrillation with rapid ventricular response (Acute) You will use the following diet at home:: Regular Your food should be the consistency of: Regular Discharge Activity: Return to Normal Activity Allergies/Adverse Reactions: Allergies adhesive Allergy (Verified 02/06/20 07:22) Rash irbesartan Allergy (Verified 02/06/20 07:22) Unknown solifenacin [From Vesicare] Allergy (Verified 02/06/20 07:22) Unknown sulindac [Sulindac] Allergy (Verified 02/06/20 07:22) Unknown atorvastatin [From Lipitor] Adverse Reaction (Verified 02/06/20 07:22) Unknown lisinopril Adverse Reaction (Verified 02/06/20 07:22) Other COUGH losartan potassium [From Cozaar] Adverse Reaction (Verified 02/06/20 07:22) Other metoprolol Adverse Reaction (Verified 02/06/20 07:22) GI Upset ramipril [From Altace] Adverse Reaction (Verified 02/06/20 07:22) Other tramadol Adverse Reaction (Verified 02/06/20 07:22) Unknown Medications to take at Discharge Atorvastatin Calcium [Lipitor] 10 mg PO QHS 04/17/17 Clobetasol Propionate [Temovate Cream (BKC)] 1 applic TOPICAL BID 04/17/17 Fluticasone 0.05% [Flonase Nasal [place]] 1 spray NASAL DAILY 04/17/17 albuterol sulfate 90 mcg/actuation aerosol inhaler 2 puff INHALATION Q4H PRN g 09/27/17 hydrocortisone 2.5 % topical cream 1 applic TOPICAL BID-QID PRN 09/27/17 ketoconazole 2 % topical cream 1 applic TOPICAL .COMPLEX PRN 09/27/17 levothyroxine 100 mcg tablet 100 mcg PO .COMPLEX 09/27/17 flecainide 50 mg tablet 50 mg PO Q12H #180 tab 09/10/19 atenolol 25 mg tablet 25 mg PO BID #180 tab 11/13/19 febuxostat 40 mg tablet 80 mg PO DAILY 11/20/19 phenylephrine HCl 0.5 % nasal spray 1 spray INTRANASAL QHS ml 11/20/19 nystatin 100,000 unit/gram topical powder 1 applic TOPICAL .COMPLEX PRN 12/16/19 amlodipine 5 mg tablet 5 mg PO QDAY #90 tab 01/04/20 furosemide 40 mg tablet 40 mg PO DAILY #90 tab 02/03/20 potassium chloride 20 mEq tablet,extended release 20 meq PO BID #180 tab 02/03/20 Colchicine 0.6 mg PO DAILY PRN 02/06/20 Pantoprazole Sodium [Protonix] 40 mg PO DAILY #120 tab 02/10/20 Sucralfate [Carafate] 1 gm PO 1HR_ACHS #120 tab 02/10/20 The following prescriptions were given: Sucralfate [Carafate] 1 gm PO 1HR_ACHS #120 tab Transmission Status: Pending to [facility] Pantoprazole Sodium [Protonix] 40 mg PO DAILY #120 tab Transmission Status: Pending to [facility] Primary Care Physician: Denyn Romano Chi, MD [Primary Care Provider] - Please follow up with your Primary Care Physician in: In 1 to 2 weeks Test Results: Test results from this visit will be discussed in further detail at your follow-up appointment, if applicable. Please Follow Up With: Stress/Echo Please Follow Up With: Denny Romano Chi, MD Please Follow Up With: Josiane Velazquez MD When: In 2 to 3 weeks Proposed Discharge Date: 02/10/20
--- NOTE | 2020-02-10 10:51 | PCM.DC.SUM ---
Discharge Date and Diagnosis - Problem List Patient Problems: Active and Suspected Problems (Last Reviewed 02/06/20 @ 09:[address] Dakota Yanes DO) Upper GI bleeding (Acute) Acute blood loss anemia (Acute) Atrial fibrillation with rapid ventricular response (Acute) Date of Admission: 02/06/20 Date of Discharge: 02/10/20 - Primary Discharge Diagnosis Acute Problems: Active Problems (Last Reviewed 02/06/20 @ 09:[address] Dakota Yanes DO) Upper GI bleeding (Acute) Acute blood loss anemia (Acute) Atrial fibrillation with rapid ventricular response (Acute) - Secondary Discharge Diagnosis Chronic Problems: Chronic Problems (Last Reviewed 02/06/20 @ 09:[address] Dakota Yanes DO) Hyperlipidemia (Chronic) Obstructive sleep apnea (Chronic) Carotid stenosis (Chronic) Chronic kidney disease (Chronic) Dementia (Chronic) Meningioma (Chronic) Chronic diastolic heart failure (Chronic) Paroxysmal atrial fibrillation (Chronic) Diastolic CHF, acute (Chronic) Dyspnea on exertion (Chronic) Hyperparathyroidism (Chronic) Hypothyroidism (Chronic) Lymphomatoid papulosis (Chronic) Hypertension (Chronic) Obesity (Chronic) Right bundle branch block (Chronic) AV block, 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) GERD (gastroesophageal reflux disease) (Chronic) History of esophageal dilatation (Chronic) Anxiety and depression (Chronic) Thoracic aortic aneurysm (Chronic) 3.9 cm History of CVA (cerebrovascular accident) (Chronic) Hospital Course and Treatment Operations: None Summary of Care Provided: Patient is an 79-year-old lady with history of paroxysmal A. fib on systemic anticoagulation with apixaban who presented with melena. Patient underwent EGD on 02/07/2020 which demonstrated a gastric ulcer with an adherent clot 1. Upper GI bleed ?Patient underwent EGD on 02/06/1930 which demonstrated nonbleeding gastric ulcer with adherent clot which was biopsied. Patient was also noted to have erythematous to adenopathy with small hiatal hernia. It was thought patient apixaban might of exacerbated her GI bleed has subsequently been stopped. Patient placed on PPI -02/10/2020; patient was deemed stable for discharge prescription was written for PPI as well as sucralfate. Instructed to follow-up with PCP and general surgery. 2. Acute blood loss anemia ?With patient being symptomatic an order was given for patient to be transfused with 1 unit PRBC with posttransfusion H&H ordered for a.m. ?02/09/2020: Hemoglobin up to 9.2 3. Paroxysmal A. fib with RVR ?It was felt patient anemia contributing did continue patient's rate controlling agents including flecainide. Atenolol was held in view of relatively low blood pressure 4. Essential hypertension ?Patient BP meds held in view of relatively low BP this a.m. ?02/10/2020: Amlodipine was discontinued on discharge 5. Gout ?Patient is on febuxostat 6. Chronic congestive heart failure with preserved ejection fraction ?EF 65% from an echo obtained on 08/17/2019. Currently compensated. Patient is on Lasix at home held in view of relatively low blood pressure 7. DVT prophylaxis ?Chemoprophylaxis contraindicated in view of patient presentation 8. Physical deconditioning - Requested for PT OT eval and social research assistant to assist with discharge planning ?Patient was discharged home with home health with PT. Patient Problems: Active and Suspected Problems (Last Reviewed 02/06/20 @ 09:[address] Dakota Yanes, DO) Upper GI bleeding (Acute) Acute blood loss anemia (Acute) Atrial fibrillation with rapid ventricular response (Acute) Objective: GENERAL: cooperative HEENT: Atraumatic; EYES; Anicteric, Normal Conjunctiva NECK; supple, normal thyroid, RESPIRATORY: Diminished to auscultation CARDIOVASCULAR: Irregular S1 S2, GI: soft, normoactive bowel sounds, : No Renal angle tenderness; EXTREMITIES: No edema, no clubbing, MUSCULOSKELETAL: no muscle waisting NEURO: Awake; no lateralizing signs. SKIN: No Rash PSYCH; Flat affect - Physical Exam Vitals/I&O's: Vital Signs Temp Pulse Resp BP Pulse Ox 98.3 F 75 18 106/65 97 02/10/20 08:45 02/10/20 08:45 02/10/20 08:45 02/10/20 08:45 02/10/20 08:45 Oxygen Flow Rate (L/min) 2 Oxygen Delivery Method Room Air Weight: 79.3 kg Body Mass Index (BMI) 34.6 Finger Stick Blood Glucose 132 Intake and Output for Last 24 Hours 02/08/20 02/09/20 02/10/20 23:59 23:59 23:59 Intake Total 1820 / 1820 960 / 960 732 / 732 Output Total 850 / 850 800 / 800 250 / 250 Balance 970 / 970 160 / 160 482 / 482 Laboratory Results 02/10/20 05:32: WBC 12.4 H, RBC 2.85 L, Hgb 9.2 L, Hct 27.9 L, MCV 97.9, MCH 32.3 H, MCHC 33.0, RDW Std Deviation 48.7 H, RDW Coeff of Cricket 13.8, Plt Count 200, MPV 12.1 H 02/10/20 05:32: Sodium 144, Potassium 3.7, Chloride 111 H, Carbon Dioxide 27.0, Anion Gap 6, BUN 27 H, Creatinine 1.15 H, Estim Creat Clear Calc 48.03, Est GFR (MDRD) Af Amer 58 L, Est GFR (MDRD) Non-Af 48 L, BUN/Creatinine Ratio 23.5 H, Glucose 125 H, Calcium 9.5 Current Medications Acetaminophen (Tylenol) 650 mg PO Q6H PRN PRN PRN Reason: Pain Score 1-10/Temp > 100.7 F Last Admin: 02/10/20 09:10 Dose: 650 mg Documented by: Acetaminophen (Tylenol) 650 mg RECTAL Q4H PRN PRN PRN Reason: Pain Score 1-10/Temp > 100.7 F Albuterol Sulfate (Ventolin Aerosols) 2.5 mg INHALATION Q4H PRN PRN Reason: SOB &/OR WHEEZING Atenolol (Tenormin (Beta Ivan)) 25 mg PO BID [facility] Last Admin: 02/10/20 09:11 Dose: 25 mg Documented by: Clobetasol Propionate (Temovate Cream (Bkc)) 1 applic TOPICAL BID [facility]; Protocol Last Admin: 02/10/20 09:12 Dose: 1 applicatio Documented by: Dextrose (D50w Syringe) 0 gm IV X1 PRN; Protocol PRN Reason: Hypoglycemia Febuxostat (Uloric) 80 mg PO DAILY [facility] Last Admin: 02/10/20 09:11 Dose: 80 mg Documented by: Flecainide Acetate (Tambocor) 50 mg PO Q12 [facility] Last Admin: 02/10/20 09:11 Dose: 50 mg Documented by: Fluticasone Propionate (Flonase Nasal [place]) 1 spray NASAL DAILY [facility] Last Admin: 02/10/20 09:10 Dose: 1 spray Documented by: Glucagon () 1 mg IM .X1 PRN PRN Reason: Hypoglycemia Hydrocortisone (Hytone) 1 applic TOPICAL 4X/DAY PRN PRN; Protocol PRN Reason: RASH/TOPICAL IRRITATION Pantoprazole Sodium 40 mg/ (Sodium Chloride) 110 mls @ 330 mls/hr IV Q12 [facility] Last Infusion: 02/10/20 09:30 Dose: Infused Documented by: Sodium Chloride () 500 mls @ 15 mls/hr IV PRN PRN PRN Reason: Blood Transfusion Sodium Chloride () 250 mls @ 15 mls/hr IV .[id number] PRN PRN Reason: Saline Flush Sodium Chloride () 250 mls @ 15 mls/hr IV .[id number] PRN PRN Reason: Additional IVPB Infusion Levothyroxine Sodium (Synthroid) 100 mcg PO MoTuWeThFrSa@0600 [facility] Last Admin: 02/10/20 06:19 Dose: 100 mcg Documented by: Nystatin (Mycostatin Powder) 1 applic TOPICAL BID PRN PRN; Protocol PRN Reason: IRRITATION Last Admin: 02/07/20 06:07 Dose: 1 applic Documented by: Ondansetron HCl (Zofran) 4 mg IV Q8H PRN PRN PRN Reason: NAUSEA/VOMITING Phenylephrine HCl (Umesh-Synephrine) 1 spray NASAL QHS [facility] Last Admin: 02/09/20 21:22 Dose: 1 spray Documented by: Sodium Chloride () 10 - 40 ml IV UD PRN PRN Reason: SALINE FLUSH Last Admin: 02/09/20 21:23 Dose: 10 ml Documented by: Sucralfate (Carafate) 1 gm PO 1HR_ACHS [facility] Last Admin: 02/10/20 06:19 Dose: 1 gm Documented by: Discharge Diet: No Restrictions Discharge Activity: Return to Normal Activity Home Medications: Medications to take at Discharge Atorvastatin Calcium [Lipitor] 10 mg PO QHS 04/17/17 Clobetasol Propionate [Temovate Cream (BKC)] 1 applic TOPICAL BID 04/17/17 Fluticasone 0.05% [Flonase Nasal [place]] 1 spray NASAL DAILY 04/17/17 albuterol sulfate 90 mcg/actuation aerosol inhaler 2 puff INHALATION Q4H PRN g 09/27/17 hydrocortisone 2.5 % topical cream 1 applic TOPICAL BID-QID PRN 09/27/17 ketoconazole 2 % topical cream 1 applic TOPICAL .COMPLEX PRN 09/27/17 levothyroxine 100 mcg tablet 100 mcg PO .COMPLEX 09/27/17 flecainide 50 mg tablet 50 mg PO Q12H #180 tab 09/10/19 atenolol 25 mg tablet 25 mg PO BID #180 tab 11/13/19 febuxostat 40 mg tablet 80 mg PO DAILY 11/20/19 phenylephrine HCl 0.5 % nasal spray 1 spray INTRANASAL QHS ml 11/20/19 nystatin 100,000 unit/gram topical powder 1 applic TOPICAL .COMPLEX PRN 12/16/19 furosemide 40 mg tablet 40 mg PO DAILY #90 tab 02/03/20 potassium chloride 20 mEq tablet,extended release 20 meq PO BID #180 tab 02/03/20 Colchicine 0.6 mg PO DAILY PRN 02/06/20 Pantoprazole Sodium [Protonix] 40 mg PO DAILY #120 tab 02/10/20 Sucralfate [Carafate] 1 gm PO 1HR_ACHS #120 tab 02/10/20 Following Prescrptions Were Given to Patient: Sucralfate [Carafate] 1 gm PO 1HR_ACHS #120 tab Transmission Status: Received by [facility] Pantoprazole Sodium [Protonix] 40 mg PO DAILY #120 tab Transmission Status: Received by [facility] Primary Care Physician: Denny Romano Chi, MD [Primary Care Provider] - Please follow up with your Primary Care Physician in: In 1 to 2 weeks Please Follow Up With: Stress/Echo Please Follow Up With: Denny Romano Chi, MD Please Follow Up With: Josiane Velazquez MD When: In 2 to 3 weeks Disposition: Home with Home Health Minutes spent on discharge:: 35 Patient Condition:: Stable Medical Necessity - Tobacco Use Smoking Status: Never smoker Meaningful Use Info Meaningful Use Diagnoses (Choose all that apply): None applicable Inpatient E&M: 33214 [facility]
--- NOTE | 2020-02-10 10:58 | CASEMGMT ---
YIN spoke with patient about a d/c plan. She was adamant with SW and physician she has to go home as she has a who has Dementia and she helps care for him. RN CM spoke with patient's son who was concerned with patient returning home as patient told him it took 2 people to help her get up. This is not the case and she went over therapy notes with him and he said she doesn't walk much around there home to begin with. YIN spoke with patient and she is in agreement with [facility] as they are the only in network agency in [facility]. YIN called [facility] with referral for PT/OT. Plan: Home with [facility] PT and OT Nedra ROBLES MSW
--- NOTE | 2020-02-10 11:33 | PHA.DC.MC ---
Pharmacy Service has performed discharge medication reconciliation and counseling for this patient. 1. PANTOPRAZOLE 40MG PO DAILY 2. SUCRALFATE 1GM PO 1HR_ACHS The patient's discharge medication list was reviewed for discrepancies and discrepancies were resolved. Home Medications Atorvastatin Calcium [Lipitor] 10 mg PO QHS 04/17/17 Clobetasol Propionate [Temovate Cream (BKC)] 1 applic TOPICAL BID 04/17/17 Fluticasone 0.05% [Flonase Nasal [place]] 1 spray NASAL DAILY 04/17/17 albuterol sulfate 90 mcg/actuation aerosol inhaler 2 puff INHALATION Q4H PRN g 09/27/17 hydrocortisone 2.5 % topical cream 1 applic TOPICAL BID-QID PRN 09/27/17 ketoconazole 2 % topical cream 1 applic TOPICAL .COMPLEX PRN 09/27/17 levothyroxine 100 mcg tablet 100 mcg PO .COMPLEX 09/27/17 flecainide 50 mg tablet 50 mg PO Q12H #180 tab 09/10/19 atenolol 25 mg tablet 25 mg PO BID #180 tab 11/13/19 febuxostat 40 mg tablet 80 mg PO DAILY 11/20/19 phenylephrine HCl 0.5 % nasal spray 1 spray INTRANASAL QHS ml 11/20/19 nystatin 100,000 unit/gram topical powder 1 applic TOPICAL .COMPLEX PRN 12/16/19 furosemide 40 mg tablet 40 mg PO DAILY #90 tab 02/03/20 potassium chloride 20 mEq tablet,extended release 20 meq PO BID #180 tab 02/03/20 Colchicine 0.6 mg PO DAILY PRN 02/06/20 Pantoprazole Sodium [Protonix] 40 mg PO DAILY #120 tab 02/10/20 Sucralfate [Carafate] 1 gm PO 1HR_ACHS #120 tab 02/10/20 The patient was counseled on the following discharge medications and changes in medications for homegoing were reviewed. The Reason for Use, instructions for use, and potential side effects were reviewed for all new medications. The patient's questions regarding all of their medications were answered. The patient was able to verbally demonstrate an understanding of their discharge medications.
--- NOTE | 2020-02-10 12:52 | CASEMGMT ---
Call to Moncho at [facility] to notify of pt discharge today and that pt set up with [facility] PT/OT at discharge, voices understanding and states they will still see pt in conjunction with C. Gerber AQUINO CM
[2020-02-10 14:31] VITALS: BP 125/81; PULSE 101; RESP 18; TEMP 36.6; O2SAT 96
--- NOTE | 2020-02-11 15:27 | CASEMGMT ---
MILES ABRAHAM Discharge F/U Phone Call LACE: 13 Strata: 3 Discharge date: 02/10/2020 Call date: 02/11/2020 Call time: [id number] Admission dx: GI Bleed Pt states has been doing 'a lot better' since discharge and states no further black stools. Pt states no questions regarding discharge instructions or medications at this time. Pt states she has not heard from [facility] to set up time for PT/OT to come out and this MILES ABRAHAM advised her that would place call to check on referral, pt voices understanding and gratitude at this time. Pt states no suggestions for [facility] at this time. Pt voices no further questions/concerns/needs at this time. Call to Keisha at [facility] and she states that therapy should go out tomorrow to see pt. Gerber AQUINO CM
== END 2020-02-10 15:01 | disposition home or self-care (01) | DRG 377 ==
LOC: ED 08:46 → PCU 09:21
PROVIDERS: Surgery; Emergency Provider Emergency Medicine; PCP Family Medicine Geriatric Medicine; Visit Provider Internal Medicine
PROC: 0DJ08ZZ Inspection of Upper Intestinal Tract, Via Natural or Artificial Opening Endoscopic (ICD-10-PCS; CPT 43235; principal; 2020-02-07 08:00)
DX: K25.4 Chronic or unspecified gastric ulcer with hemorrhage (principal); I50.33 Acute on chronic diastolic (congestive) heart failure; D62 Acute posthemorrhagic anemia; I48.0 Paroxysmal atrial fibrillation; M10.9 Gout, unspecified; F32.9 Major depressive disorder, single episode, unspecified; F41.9 Anxiety disorder, unspecified; I11.0 Hypertensive heart disease with heart failure; F03.90 Unspecified dementia, unspecified severity, without behavioral disturbance, psychotic disturbance, mood disturbance, and anxiety; Z86.73 Personal history of transient ischemic attack (TIA), and cerebral infarction without residual deficits; E78.5 Hyperlipidemia, unspecified; E21.3 Hyperparathyroidism, unspecified; E03.9 Hypothyroidism, unspecified; Z85.72 Personal history of non-Hodgkin lymphomas; G47.33 Obstructive sleep apnea (adult) (pediatric); I71.2 Thoracic aortic aneurysm, without rupture; Z79.02 Long term (current) use of antithrombotics/antiplatelets; Z79.899 Other long term (current) drug therapy; K44.9 Diaphragmatic hernia without obstruction or gangrene; E66.9 Obesity, unspecified; Z68.35 Body mass index [BMI] 35.0-35.9, adult; K29.50 Unspecified chronic gastritis without bleeding; K21.0 Gastro-esophageal reflux disease with esophagitis
CPT/HCPCS: 36415; 80048; 83735; 84484; 85014; 85018; 85025; 85027; 86644; 86850; 86900; 86901; 86920; 87635; 88305; 88312; 88313; 88342; 93005; 97110; 97116; 97162; 97165; 97530; 97535; 99285; G2023; J7030; J7040; J7120; P9040; A4216; J3490; U0004

== ENCOUNTER → 2020-02-17 09:21 | Outpatient (CLI) | payer MEDICARE, SELFPAY ==
[2019-12-16 13:23] VITALS: BMI 35.8
[2020-02-07 01:05] VITALS: BMI 34.6
--- NOTE | 2020-02-17 09:26 | STEWCON_ITS ---
Reason For Study: AFIB/FLUTTER Stress Results Protocol: Dobutamine Stress With Definity Maximum Predicted HR: 139 bpm Target HR: 118 bpm % Maximum Predicted HR: 91 % DurationHeart Rate Stage (mm:ss) (bpm) BP Dose Comment BASELINE 111 119/68 5 CC TOTAL DEFINITY FOR TEST STAGE 1 4:20 127 114/7010.00 RECOVERY 116 102/64 Stress Duration: 4:20 mm:ss Maximum Stress HR: 127 bpm Baseline Echocardiogram Findings The estimated ejection fraction is 65 %. Stress Echo Wall motion Data Resting WM Intermediate WM Stress WM Resting Wall Motion Wall Motion Stress No regional wall motion No regional wall motion abnormalities noted. abnormalities noted. EKG Data The baseline ECG displays normal sinus rhythm. The patient was titrated from 10 mcg to a maximum of 20 mcg of dobutamine during the stress. The maximum heart rate attained was 134 beats per minute. This was 96% of maximum predicted heart rate. During dobutamine infusion, there were no ST or T wave changes noted to suggest ischemia. No clinical angina was noted. No arrhythmias noted. Interpretation Summary The estimated ejection fraction is 65 %. Normal, adequate, dobutamine echocardiogram. Negative for ischemia by EKG and echocardiographic criteria. No anginal symptoms noted. No arrhythmias noted. Appropriate blood pressure response to dobutamine. Test terminated due to the attainment target heart rate. Final LVEF is 75%. Decrease sensitivity due to poor echo windows requiring Definity agent. Patient tolerated procedure well. No complications. The study was technically difficult. Contrast injection was performed. Ordering Physician: Prakash Cordova Referring Physician: Prakash Cordova Performed By: Danielle Enciso, C[place], RVT
[2020-02-17 10:57] LABS: Anion Gap 8 (5-15); BUN 40 mg/dL (7-18); Calcium,Total 10.5 mg/dL (8.5-10.1); Chloride 105 mmol/L (98-107); EST Glomerular Filtration Rate 25 mL/min (>60); Est Glom Filt Rate - Afr Amer 31 mL/min (>60); Glucose 109 mg/dL (74-106); Potassium 4.5 mmol/L (3.5-5.1); Sodium Level 141 mmol/L (136-145)
== END ==
PROVIDERS: Nurse Practitioner Family; PCP Family Medicine Geriatric Medicine; Referring Provider Internal Medicine Cardiovascular Disease; Visit Provider Internal Medicine Cardiovascular Disease
DX: I48.0 Paroxysmal atrial fibrillation (principal); I48.92 Unspecified atrial flutter; I50.32 Chronic diastolic (congestive) heart failure; N18.9 Chronic kidney disease, unspecified
CPT/HCPCS: 36415; 80048; 93017; 93350; J7040; Q9957; A4216; C8928

== ENCOUNTER → 2020-03-01 10:25 | Outpatient (CLI) | payer MEDICARE, SELFPAY ==
[2020-02-07 01:05] VITALS: BMI 34.6
[2020-03-01 12:48] LABS: Albumin, Serum 3.2 g/dL (3.2-5.0); BUN 38 mg/dL (7-18); BUN/Creat Ratio 22.2 RATIO (10-20); Calcium,Total 10.5 mg/dL (8.5-10.1); Chloride 103 mmol/L (98-107); Creatinine, Serum 1.71 mg/dL (0.55-1.02); EST Glomerular Filtration Rate 30 mL/min (>60); Est Glom Filt Rate - Afr Amer 37 mL/min (>60); Glucose 101 mg/dL (74-106); Phosphorus 2.3 mg/dL (2.5-4.9); Potassium 4.4 mmol/L (3.5-5.1); Sodium Level 141 mmol/L (136-145)
== END ==
PROVIDERS: PCP Family Medicine Geriatric Medicine; Referring Provider Internal Medicine Nephrology; Visit Provider Internal Medicine Nephrology
DX: N17.9 Acute kidney failure, unspecified (principal)
CPT/HCPCS: 36415; 80069

== ENCOUNTER 2020-03-04 09:04 | Outpatient (RCR) | payer MEDICARE, SELFPAY ==
[2020-02-07 01:05] VITALS: BMI 34.6
[2020-03-03 09:40] VITALS: BMI 34.9
[2020-03-04 10:34] VITALS: BP 120/82; PULSE 107; RESP 18; TEMP 36.2; BMI 34.3
--- NOTE | 2020-03-04 17:03 | PCM.WC.HP ---
(1) Pressure ulcer of right buttock, stage 2 Status: Chronic Current Visit: Yes Code(s): L89.312 - Pressure ulcer of right buttock, stage 2 (2) Chronic kidney disease Status: Chronic Current Visit: Yes Qualifiers: Chronic kidney disease stage: unspecified stage Qualified Code(s): N18.9 - Chronic kidney disease, unspecified Code(s): N18.9 - Chronic kidney disease, unspecified (3) Hypothyroidism Status: Chronic Current Visit: Yes Qualifiers: Hypothyroidism type: unspecified Qualified Code(s): E03.9 - Hypothyroidism, unspecified Code(s): E03.9 - Hypothyroidism, unspecified (4) Hypertension Status: Chronic Current Visit: Yes Qualifiers: Hypertension type: unspecified Qualified Code(s): I10 - Essential (primary) hypertension Code(s): I10 - Essential (primary) hypertension (5) Obesity Status: Chronic Current Visit: No Qualifiers: Obesity type: unspecified obesity type Code(s): E66.9 - Obesity, unspecified History of Present Illness Date of Service: 03/04/20 Chief Complaint: Ulcer of right buttock History of Wound: Kalina is a pleasant 79 yo female who presents to the wound healing center for evaluation and treatment of a nonhealing ulcer of her right buttock. She was recently hospitalized for an upper GI bleed and developed a pressure ulcer of right buttock. She sits and sleeps in a recliner due to chronic back pain from scoliosis. She has been trying to offload the area but has not been able to tolerate this. Her daughter has been applying duoderm to the area based on recommendation of RN from Home Health. She has moderate drainage from the ulcer and denies any odor or erythema. She does have urinary and bowel incontinence. Her daughter has been trying to keep the area clean and washes with soap and water. Denies fever, chills. Past Medical History Past Medical History: Chronic Problems (Last Reviewed 03/03/20 @ 09:40 by Jelly Fernández) Pressure ulcer of right buttock, stage 2 (Chronic) Hyperlipidemia (Chronic) Obstructive sleep apnea (Chronic) Carotid stenosis (Chronic) Chronic kidney disease (Chronic) Dementia (Chronic) Meningioma (Chronic) Chronic diastolic heart failure (Chronic) Paroxysmal atrial fibrillation (Chronic) Diastolic CHF, acute (Chronic) Dyspnea on exertion (Chronic) Hyperparathyroidism (Chronic) Hypothyroidism (Chronic) Lymphomatoid papulosis (Chronic) Hypertension (Chronic) Obesity (Chronic) Right bundle branch block (Chronic) AV block, 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) GERD (gastroesophageal reflux disease) (Chronic) History of esophageal dilatation (Chronic) Anxiety and depression (Chronic) Thoracic aortic aneurysm (Chronic) 3.9 cm History of CVA (cerebrovascular accident) (Chronic) Surgical History: appendectomy, cholecystectomy, herniorrhaphy - With mesh, extensive per patient, total hip arthroplasty - Right, total knee arthroplasty - Bilateral, - - Esophageal dilation Allergies/Adverse Reactions: Allergies adhesive Allergy (Verified 03/04/20 09:23) Rash irbesartan Allergy (Verified 03/04/20 09:23) Unknown solifenacin [From Vesicare] Allergy (Verified 03/04/20 09:23) Unknown sulindac [Sulindac] Allergy (Verified 03/04/20 09:23) Unknown atorvastatin [From Lipitor] Adverse Reaction (Verified 03/04/20 09:23) Unknown lisinopril Adverse Reaction (Verified 03/04/20 09:23) Other COUGH losartan potassium [From Cozaar] Adverse Reaction (Verified 03/04/20 09:23) Other metoprolol Adverse Reaction (Verified 03/04/20 09:23) GI Upset ramipril [From Altace] Adverse Reaction (Verified 03/04/20 09:23) Other tramadol Adverse Reaction (Verified 02/06/20 07:22) Unknown Home Medications: Ambulatory Orders Medication Instructions Recorded Atorvastatin Calcium [Lipitor] 10 mg PO QHS 04/17/17 Clobetasol Propionate [Temovate 1 applic TOPICAL BID 04/17/17 Cream ([facility])] Fluticasone 0.05% [Flonase Nasal 1 spray NASAL DAILY 04/17/17 [place]] albuterol sulfate 90 mcg/actuation 2 puff INHALATION Q4H PRN g 09/27/17 aerosol inhaler hydrocortisone 2.5 % topical cream 1 applic TOPICAL BID-QID PRN 09/27/17 levothyroxine 100 mcg tablet 100 mcg PO .COMPLEX 09/27/17 flecainide 50 mg tablet 50 mg PO Q12H #180 tab 09/10/19 atenolol 25 mg tablet 25 mg PO BID #180 tab 11/13/19 phenylephrine HCl 0.5 % nasal spray 1 spray INTRANASAL QHS ml 11/20/19 nystatin 100,000 unit/gram topical 1 applic TOPICAL .COMPLEX PRN 12/16/19 powder potassium chloride 20 mEq 20 meq PO BID #180 tab 02/03/20 tablet,extended release Colchicine 0.6 mg PO DAILY PRN 02/06/20 Pantoprazole Sodium [Protonix] 40 mg PO DAILY #120 tab 02/10/20 Sucralfate [Carafate] 1 gm PO 1HR_ACHS #120 tab 02/10/20 allopurinol 300 mg tablet 300 mg PO DAILY 03/03/20 furosemide 40 mg tablet 40 mg PO DAILY tab 03/03/20 Colchicine 0.6 mg PO DAILY 03/04/20 - Family History Paternal Family History: Family History (Last Reviewed 03/03/20 @ 09:40 by Jelly Fernández) Father CVA (cerebral vascular accident) Mother CAD (coronary artery disease) Congestive heart failure Stroke, No pertinent history - No history of lung disease or autoimmune disease Maternal Family History: Family History (Last Reviewed 03/03/20 @ 09:40 by Jelly Fernández) Father CVA (cerebral vascular accident) Mother CAD (coronary artery disease) Congestive heart failure Stroke, No pertinent history - No history of lung disease autoimmune disease Lives: With Family Smoking Status: Never smoker Tobacco Use: Non-smoker Alcohol: None Drugs: None Review of Systems Constitutional: Denies: Chills, Fever, Weight Change Eyes: Denies: Pain, Vision Change HEENT: Denies: Difficulty Hearing, Difficulty Swallowing, Sinus Congestion Cardiovascular: Denies: Chest Pain, Palpitations Respiratory: Denies: Cough, Shortness of Breath Gastrointestinal: Denies: Diarrhea, Nausea, Vomiting Genitourinary: Denies: Dysuria, Hematuria Musculoskeletal: Reports: Back Pain, Muscle pain Skin: Reports: Wounds Endocrine: Denies: Heat/ Cold Intolerance, Polydipsia, Polyuria Hematologic/ Lymphatic: Denies: Easy Bruising, Easy Bleeding - Physical Exam Vital Signs Temp Pulse Resp BP 97.2 F L 107 H 18 120/82 H 03/04/20 10:34 03/04/20 10:34 03/04/20 10:34 03/04/20 10:34 General: Alert, Oriented x3, Cooperative, No apparent distress HEENT: Atraumatic, Normocephalic Oral: Moist Mucosa Abdomen: Obese Skin: Ulcer/ Wound Wound Measurements and Assessment - Nurse 1 - General Ulcer Measurement Start: 03/04/20 09:22 Freq: Status: Active Protocol: Activity Type Activity Date Activity User E-Sign Co-Sign Detail Recorded Client Recorded Date Recorded By Document 03/04/20 10:34 RB [id number] 03/04/20 10:43 RB 03/04/20 10:34 Wound Center Nurse 1 [Ulcer Assessment] R buttocks -Combined with other wound No -Current Size (cm) - Length 0.4 -Current Size (cm) - Width 0.2 -Current Size (cm) - Depth 0.2 -Total Square Cm 0.08 -Photo Taken Yes -Tunneling No -Undermining/Tunneling No -Circular Undermining No -Exudate Amt Medium -Exudate Type Serosanguineous -Wound Margin Flat & Intact -Granulation Amt Medium (34-66%) -Granulation Quality [place] -Slough/Fibrin Yes -Necrosis Amt Small (1-33%) -Necrotic Tissue Type Adherent Slough -Structure Exposed N/A -Texture (Neha-wound Skin Appearance) Assessed, Scarring -Moisture (Neha-wound Skin Appearance Assessed ) -Color (Neha-wound Skin Appearance) Assessed -Temperature (Neha-wound Skin No Abnormality Appearance) (Pt Warm) -Tenderness on Palpation (Neha-wound No Skin Appearance) -Ulcer Cleansing Wound Cleanser -Foul Odor after Cleansing No -Anesthetic Used 4% Lidocaine Solution - Nurse 2 - General Ulcer CM Notes Start: 03/04/20 09:22 Freq: Status: Active Protocol: Activity Type Activity Date Activity User E-Sign Co-Sign Detail Recorded Client Recorded Date Recorded By Document 03/04/20 11:02 DV [id number] 03/04/20 11:05 DV 03/04/20 11:02 Wound Center Nurse 2 [Procedure/Treatment] -Time 11:02 -Correct Patient Yes -Correct Side, Site, Position Yes -Correct Procedure Yes -Procedure Performed Yes -Type of Procedure Debridement -Clinical Debridement Subcutaneous -Post Debridement Size (cm) - Length 0.4 -Post Debridement Size (cm) - Width 0.3 -Post Debridement Size (cm) - Depth 0.2 -Total Square Cm 0.12 -Wound/Ulcer Outcome Healed- Epithelialized -Ulcer Cleansing Rinsed/ Irrigated with Saline -Foul Odor after Cleansing No -Bioengineered Tissue No -Bleeding Controlled with Pressure -Offloading No -Treatment Response Procedure Tolerated Well [See Physician Procedure note for Specifics] Psych/Mental Status: Normal Affect, Appropriate Debridement Note Post-Debridement Measurements/Treatment WC - Nurse 2 - General Ulcer CM Notes Start: 03/04/20 09:22 Freq: Status: Active Protocol: Activity Type Activity Date Activity User E-Sign Co-Sign Detail Recorded Client Recorded Date Recorded By Document 03/04/20 11:02 DV [id number] 03/04/20 11:05 DV 03/04/20 11:02 Wound Center Nurse 2 R buttocks -Time 11:02 -Correct Patient Yes -Correct Side, Site, Position Yes -Correct Procedure Yes -Procedure Performed Yes -Type of Procedure Debridement -Clinical Debridement Subcutaneous -Post Debridement Size (cm) - Length 0.4 -Post Debridement Size (cm) - Width 0.3 -Post Debridement Size (cm) - Depth 0.2 -Total Square Cm 0.12 -Wound/Ulcer Outcome Healed- Epithelialized -Ulcer Cleansing Rinsed/ Irrigated with Saline -Foul Odor after Cleansing No -Bioengineered Tissue No -Bleeding Controlled with Pressure -Offloading No -Treatment Response Procedure Tolerated Well Wound debrided: right buttocks Laterality: Right Wound Grade/Stage: Stage 2 Type of Debridement: Excisional debridement Anesthesia Used: 4% Lidocaine Solution, 5% Lidocaine Gel Depth: Down to and including healthy tissue, in the subcutaneous layer Percentage of wound debrided: 100 Instrument Used: 3mm curette Tissue Removed: Yellow slough, devitalized tissue Severity: Fat Layer Exposed Amount of bleeding with debridement: Mild Bleeding Controlled with: Compression and gauze Patient tolerated procedure well Assessment/Plan Active Problems (Last Reviewed 03/03/20 @ 09:40 by eJlly Fernández) Pressure ulcer of right buttock, stage 2 (Chronic) Chronic kidney disease (Chronic) Hypothyroidism (Chronic) Hypertension (Chronic) Assessment: Stage 2 pressure ulcer right buttock Plan: Kalina's ulcer was evaluated and debrided today as above. No signs of infection are present. Will initiate dressings of Sophia moistened for moderate drainage and cover with optifoam or allevyn or other foam dressing with adhesive border to provide offloading and prevent contamination with urine or feces. Changes daily and as needed for soiling the dressing. Wash with soap and water and pat dry. She will increase protein intake, offload the area with a blanket or pillow as demonstrated. Continue Home Health services and will have her follow up in 1 week for nurse visit and 2 weeks for wound care visit. Advised to call with any worsening of ulcer, increased drainage or erythema.
== END 2020-03-08 23:59 ==
LOC: WC 09:04
PROVIDERS: PCP Family Medicine Geriatric Medicine; Visit Provider Family Medicine
DX: L89.312 Pressure ulcer of right buttock, stage 2 (principal); N17.9 Acute kidney failure, unspecified; E11.22 Type 2 diabetes mellitus with diabetic chronic kidney disease; I13.0 Hypertensive heart and chronic kidney disease with heart failure and stage 1 through stage 4 chronic kidney disease, or unspecified chronic kidney disease; I50.32 Chronic diastolic (congestive) heart failure; N18.9 Chronic kidney disease, unspecified; I48.0 Paroxysmal atrial fibrillation; E78.5 Hyperlipidemia, unspecified; E03.9 Hypothyroidism, unspecified; G89.29 Other chronic pain; M54.9 Dorsalgia, unspecified; R15.9 Full incontinence of feces; R32 Unspecified urinary incontinence; F03.90 Unspecified dementia, unspecified severity, without behavioral disturbance, psychotic disturbance, mood disturbance, and anxiety; G47.33 Obstructive sleep apnea (adult) (pediatric); K21.9 Gastro-esophageal reflux disease without esophagitis; F32.9 Major depressive disorder, single episode, unspecified; F41.9 Anxiety disorder, unspecified; E66.9 Obesity, unspecified; Z79.01 Long term (current) use of anticoagulants; Z79.899 Other long term (current) drug therapy; Z79.51 Long term (current) use of inhaled steroids; Z79.890 Hormone replacement therapy; Z96.641 Presence of right artificial hip joint; Z96.653 Presence of artificial knee joint, bilateral; Z86.73 Personal history of transient ischemic attack (TIA), and cerebral infarction without residual deficits
CPT/HCPCS: 11042; 36415; 80048; 99213; G0463

== ENCOUNTER → 2020-03-04 09:56 | Outpatient (CLI) | payer MEDICARE, SELFPAY ==
[2020-02-07 01:05] VITALS: BMI 34.6
[2020-03-03 09:40] VITALS: BMI 34.9
[2020-03-04 12:38] LABS: Anion Gap 5 (5-15); BUN 33 mg/dL (7-18); BUN/Creat Ratio 21.9 RATIO (10-20); Calcium,Total 10.8 mg/dL (8.5-10.1); Chloride 109 mmol/L (98-107); Creatinine, Serum 1.51 mg/dL (0.55-1.02); EST Glomerular Filtration Rate 35 mL/min (>60); Est Glom Filt Rate - Afr Amer 42 mL/min (>60); Glucose 105 mg/dL (74-106); Potassium 4.3 mmol/L (3.5-5.1); Sodium Level 141 mmol/L (136-145)
== END ==
PROVIDERS: PCP Family Medicine Geriatric Medicine; Referring Provider Internal Medicine Nephrology; Visit Provider Internal Medicine Nephrology
DX: N17.9 Acute kidney failure, unspecified (principal)
CPT/HCPCS: 36415; 80048

== ENCOUNTER → 2020-03-08 08:06 | Outpatient (CLI) | payer MEDICARE, SELFPAY ==
[2020-02-07 01:05] VITALS: BMI 34.6
[2020-03-04 10:34] VITALS: BMI 34.3
--- NOTE | 2020-03-08 08:08 | US_ITS ---
STUDY: RENAL ULTRASOUND - COMPLETE REASON FOR EXAM: Female, 79 years old. RENAL MASS TECHNIQUE: Ultrasound evaluation of the kidneys was performed with real-time and static elise-scale imaging. COMPARISON: None. FINDINGS: RIGHT KIDNEY: Normal location of the right kidney, which is atrophic. The right kidney measures 8.7 x 4 x 3.2 cm. There is a thin cortex of the right kidney. The renal cortex measures 0.9 cm. There is no right renal mass or cyst. There are no right renal calculi. There is no right hydronephrosis. DISTAL RIGHT URETER: There is non-visualization of the distal right ureter. There is no demonstrated right ureterovesical junction calculus. There is a visualized right ureteral jet. LEFT KIDNEY: Normal location of the left kidney, which is normal in size. The left kidney measures 9.9 x 4.7 x 3.9 cm. There is a normal cortex of the left kidney. The renal cortex measures 1 cm. There is a hypoechoic nodule measuring 1.5 x 1.6 x 1.3 possibly representing complex cyst. CT would be helpful for more definitive evaluation There are no left renal calculi. There is no left hydronephrosis. DISTAL LEFT URETER: There is non-visualization of the distal left ureter. There is no demonstrated left ureterovesical junction calculus. There is a visualized left ureteral jet. Diffusely increased cortical echoes are seen consistent with nonspecific renal parenchymal disease BLADDER: Not visualized due to patient voiding prior to exam. US/Kidney and Bladder IMPRESSION: Findings consistent with nonspecific renal parenchymal disease. Small hypoechoic nodule in the left kidney possibly representing complex cyst however CT with contrast or MRI would be helpful for further evaluation Electronically Signed: Parag Bender MD at 16:56 EDT , Service support ,
== END ==
PROVIDERS: PCP Family Medicine Geriatric Medicine; Referring Provider Internal Medicine Nephrology; Visit Provider Internal Medicine Nephrology
DX: N28.89 Other specified disorders of kidney and ureter (principal)
CPT/HCPCS: 76770

== ENCOUNTER → 2020-03-08 13:28 | Outpatient (CLI) | payer MEDICARE, SELFPAY ==
[2020-03-04 10:34] VITALS: BMI 34.3
[2020-03-08 13:52] LABS: Hematocrit 35.1 % (37-47); Hemoglobin 10.9 g/dL (12.0-15.0); Mean Corp Hgb Conc 31.1 g/dL (32-36); Mean Corpuscular Volume 102.9 fL (81-99); Platelet Count 238 K/mm3 (150-450); RBC Distribution Width CV 13.6 % (11.6-14.6); RBC Distribution Width SD 51.4 fl (35.1-43.9); Red Blood Count 3.41 M/mm3 (4.2-5.4)
[2020-03-08 14:11] LABS: AST(SGOT) 11 U/L (15-37); Alanine Aminotransfer ALT/SGPT 21 U/L (13-56); Alkaline Phosphatase 78 U/L (45-117); Anion Gap 4 (5-15); BUN 30 mg/dL (7-18); BUN/Creat Ratio 18.5 RATIO (10-20); Bilirubin, Direct 0.22 mg/dL (0.00-0.30); Chloride 108 mmol/L (98-107); Cholesterol 127 mg/dL (200); Creatinine, Serum 1.62 mg/dL (0.55-1.02); EST Glomerular Filtration Rate 32 mL/min (>60); Est Glom Filt Rate - Afr Amer 39 mL/min (>60); Glucose 127 mg/dL (74-106); High Density Lipoprotein 46 mg/dL; Potassium 3.6 mmol/L (3.5-5.1); Sodium Level 141 mmol/L (136-145); Triglycerides 114 mg/dL; Very Low Density Lipoprotein 23 mg/dL (5-40)
== END ==
PROVIDERS: Internal Medicine Cardiovascular Disease; PCP Family Medicine Geriatric Medicine; Referring Provider Surgery; Visit Provider Surgery
DX: E78.5 Hyperlipidemia, unspecified (principal); N17.9 Acute kidney failure, unspecified; D62 Acute posthemorrhagic anemia
CPT/HCPCS: 76770; 80048; 80061; 80076; 85027

== ENCOUNTER 2020-03-18 12:01 | Outpatient (RCR) | payer MEDICARE, SELFPAY ==
[2020-03-09 00:39] VITALS: BP 120/82; PULSE 107; RESP 18; TEMP 36.2
--- NOTE | 2020-03-10 09:58 | WC ---
Returned a call to Ana, a nurse from [facility] regarding patient supplies and why we did not provide them. Patient has MCR and HH is to order supplies for the patient. The patient was provided with 2 Sophia before she left office last week and she was told if any issues arose to please call us. Ana informed me that the patients supplies were ordered but it can take a week or longer to receive them so I offered to give another Sophia and was told it wasnt needed. I will inform Charli of the situation.
[2020-03-18 12:17] VITALS: BP 110/65; PULSE 98; RESP 20; TEMP 37.1; BMI 34.3
[2020-03-18 12:27] VITALS: BMI 34.3
--- NOTE | 2020-03-18 16:49 | PCM.WC.PN ---
(1) Pressure ulcer of right buttock, stage 2 Status: Chronic Current Visit: Yes Code(s): L89.312 - Pressure ulcer of right buttock, stage 2 (2) Dementia Status: Chronic Current Visit: Yes Qualifiers: Dementia type: unspecified type Dementia behavioral disturbance: without behavioral disturbance Qualified Code(s): F03.90 - Unspecified dementia without behavioral disturbance Code(s): F03.90 - Unspecified dementia without behavioral disturbance (3) Obesity Status: Chronic Current Visit: Yes Qualifiers: Obesity type: unspecified obesity type Code(s): E66.9 - Obesity, unspecified Type of Wound Date of Service: 03/18/20 Chief Complaint: Ulcer of right buttock History of Wound: Kalina is a pleasant 79 yo female who presents to the wound healing center for evaluation and treatment of a nonhealing ulcer of her right buttock. She was recently hospitalized for an upper GI bleed and developed a pressure ulcer of right buttock. She sits and sleeps in a recliner due to chronic back pain from scoliosis. She has been trying to offload the area but has not been able to tolerate this. Her daughter has been applying duoderm to the area based on recommendation of RN from Home Health. She has moderate drainage from the ulcer and denies any odor or erythema. She does have urinary and bowel incontinence. Her daughter has been trying to keep the area clean and washes with soap and water. Denies fever, chills. Progress of Wound: Kalina presents for follow up of a stage 2 pressure ulcer of her right buttock. It is healed today. - Physical Exam Vital Signs Temp Pulse Resp BP 98.7 F 98 20 H 110/65 03/18/20 12:17 03/18/20 12:17 03/18/20 12:17 03/18/20 12:17 General: Alert, Oriented x3, Cooperative, No apparent distress HEENT: Atraumatic, Normocephalic Abdomen: Obese Skin: Ulcer/ Wound Wound Measurements and Assessment WC - Nurse 1 - General Ulcer Measurement Start: 03/18/20 12:17 Freq: Status: Active Protocol: Activity Type Activity Date Activity User E-Sign Co-Sign Detail Recorded Client Recorded Date Recorded By Document 03/18/20 12:17 MW [id number] 03/18/20 12:28 MW Document 03/18/20 12:27 MW [id number] 03/18/20 12:28 MW 03/18/20 03/18/20 12:17 12:27 Wound Center Nurse 1 [Ulcer Assessment] R buttocks -Combined with other wound No -Current Size (cm) - Length 0.1 -Current Size (cm) - Width 0.1 -Current Size (cm) - Depth 0.1 -Total Square Cm 0.01 -Date of Last Picture (Recall this 03/18/20 field) -Photo Taken Yes -Epithelialization Large 67-100% -Tunneling No -Undermining/Tunneling No -Circular Undermining No -Exudate Amt None Present -Granulation Amt None Present (0 %) -Granulation Quality N/A -Slough/Fibrin No -Necrosis Amt None Present (0 %) -Texture (Neha-wound Skin Appearance) Assessed, Scarring -Moisture (Neha-wound Skin Appearance No Abnormality, ) Assessed -Color (Neha-wound Skin Appearance) No Abnormality, Assessed -Temperature (Neha-wound Skin No Abnormality Appearance) (Pt Warm) -Tenderness on Palpation (Neha-wound No Skin Appearance) -Ulcer Cleansing Rinsed/ Irrigated with Saline -Foul Odor after Cleansing No [Edema Assessment] -Lower Limb Edema Present No WC - Nurse 2 - General Ulcer CM Notes Start: 03/18/20 12:17 Freq: Status: Active Protocol: Activity Type Activity Date Activity User E-Sign Co-Sign Detail Recorded Client Recorded Date Recorded By Document 03/18/20 12:40 DV [id number] 03/18/20 12:43 DV 03/18/20 12:40 Wound Center Nurse 2 [Procedure/Treatment] R buttocks -Time 12:40 -Correct Patient Yes -Correct Side, Site, Position Yes -Correct Procedure No -Procedure Performed No -Post Debridement Size (cm) - Length 0 -Post Debridement Size (cm) - Width 0 -Post Debridement Size (cm) - Depth 0 -Total Square Cm 0 -Wound/Ulcer Outcome Healed- Epithelialized [See Physician Procedure note for Specifics] Pain Scale: 0-10 Numeric [Pain] -Is Patient Pain Free? Yes Psych/Mental Status: Normal Affect Debridement Note Post-Debridement Measurements/Treatment WC - Nurse 2 - General Ulcer CM Notes Start: 03/18/20 12:17 Freq: Status: Active Protocol: Activity Type Activity Date Activity User E-Sign Co-Sign Detail Recorded Client Recorded Date Recorded By Document 03/18/20 12:40 DV [id number] 03/18/20 12:43 DV 03/18/20 12:40 Wound Center Nurse 2 R buttocks -Time 12:40 -Correct Patient Yes -Correct Side, Site, Position Yes -Correct Procedure No -Procedure Performed No -Post Debridement Size (cm) - Length 0 -Post Debridement Size (cm) - Width 0 -Post Debridement Size (cm) - Depth 0 -Total Square Cm 0 -Wound/Ulcer Outcome Healed- Epithelialized Pain Scale: 0-10 Numeric Is Patient Pain Free? Yes Wound debrided: right buttock Laterality: Right No debridement was completed today - ulcer is healed Assessment/Plan Active Problems (Last Reviewed 03/08/20 @ 13:02 by Amie Gordillo) Pressure ulcer of right buttock, stage 2 (Chronic) Dementia (Chronic) Obesity (Chronic) Assessment: Stage 2 pressure ulcer right buttock Plan: Kalina's ulcer was evaluated and is healed today. She was encouraged to use Desitin or calmoseptine to prevent breakdown of her skin. Continue offloading. Advised to call with any new ulcerations but will be discharged currently.
== END 2020-04-08 23:59 ==
LOC: WC 12:01
PROVIDERS: PCP Family Medicine Geriatric Medicine; Visit Provider Family Medicine
DX: L89.312 Pressure ulcer of right buttock, stage 2 (principal); F03.90 Unspecified dementia, unspecified severity, without behavioral disturbance, psychotic disturbance, mood disturbance, and anxiety; E66.9 Obesity, unspecified; N17.9 Acute kidney failure, unspecified; M54.9 Dorsalgia, unspecified; G89.29 Other chronic pain; R15.9 Full incontinence of feces
CPT/HCPCS: 99212; G0463

== ENCOUNTER 2020-03-19 10:00 | Inpatient (IN) | payer MEDICARE, SELFPAY ==
[2020-03-18 12:27] VITALS: BMI 34.3
[2020-03-19] VITALS (16 sets, daily range): BP systolic 108–147; BP diastolic 64–104; PULSE 95–118; RESP 18–26; TEMP 36.6–37.1; O2SAT 95–100; BMI 35.8; BMI 34.0
--- NOTE | 2020-03-19 10:15 | EKG12_ITS ---
Test Reason : CP SOB Blood Pressure : / mmHG Vent. Rate : 114 BPM Atrial Rate : 102 BPM P-R Int : 000 ms QRS Dur : 098 ms QT Int : 338 ms P-R-T Axes : 000 110 -48 degrees QTc Int : 465 ms Atrial fibrillation with rapid ventricular response Incomplete right bundle branch block Possible Right ventricular hypertrophy ST elevation consider inferior injury or acute infarct Consider right ventricular involvement in acute inferior infarct Abnormal ECG Confirmed by SARAH CURTIS, EVA ([id number]), social media editor IZABELA CALLAWAY ([id number]) on 03/21/2020 1:07:41 PM Referred By: CARMEN Confirmed By:EVA SMITH MD
--- NOTE | 2020-03-19 10:15 | RAD_ITS ---
STUDY: X-RAY CHEST REASON FOR EXAM: Female, 80 years old. Chest pain. TECHNIQUE: Single AP portable view of the chest. COMPARISON: December 05, 2019. FINDINGS: The lungs are clear and expanded. There is no demonstrated pleural abnormality. Normal size heart. Normal mediastinum and awais. Normal visualized pulmonary arteries. There is atherosclerotic calcification of the aortic arch with tortuosity. Stable degenerative changes and dextroscoliosis. Normal visualized ribs, clavicles, and shoulders. There is no demonstrated abnormality of the visualized soft tissue structures of the upper abdomen. RAD/Chest 1 View (Portable) IMPRESSION: No acute abnormality or interval change. Electronically Signed: Zak Ashby DO at 11:04 EDT Tel [phone], Service support ,
--- NOTE | 2020-03-19 10:16 | ED.DCSUM_ITS ---
History of Present Illness Chief Complaint: Shortness of Breath Informant: Patient Narrative: Patient is an 80-year-old female with a complicated past medical history including strokes, DVTs, atrial fibrillation not currently anticoagulated, thoracic aortic aneurysm, CHF, hypothyroidism who presents to the emergency department for shortness of breath. She is also been having some intermittent back pain starting yesterday. She denies ever having this before in the past. She does not know any aggravating or relieving factors. Movement does not aggravate it. Deep breaths also does not aggravate it. She is currently denying having any back pain at this point. She has not had any chest pain through any of this. She has not had any cough, cold, congestion symptoms. Denies any fevers or chills. She does have a history of COPD and 2.5 L of supplemental oxygen at baseline. She does have chronic leg swelling which she takes Lasix for. The swelling is currently at her baseline. She denies an abdominal pain or nausea/vomiting. No diaphoresis. Past Medical History - Allergies and Home Meds Allergies/Adverse Reactions: Allergies adhesive Allergy (Verified 03/19/20 10:03) Rash irbesartan Allergy (Verified 03/19/20 10:03) Unknown solifenacin [From Vesicare] Allergy (Verified 03/19/20 10:03) Unknown sulindac [Sulindac] Allergy (Verified 03/19/20 10:03) Unknown atorvastatin [From Lipitor] Adverse Reaction (Verified 03/19/20 10:03) Unknown lisinopril Adverse Reaction (Verified 03/19/20 10:03) Other COUGH losartan potassium [From Cozaar] Adverse Reaction (Verified 03/19/20 10:03) Other metoprolol Adverse Reaction (Verified 03/19/20 10:03) GI Upset ramipril [From Altace] Adverse Reaction (Verified 03/19/20 10:03) Other tramadol Adverse Reaction (Verified 03/19/20 10:03) Unknown Prior records reviewed: Yes Past Medical History: - - See HPI Surgical History: appendectomy, cholecystectomy, herniorrhaphy - With mesh, extensive per patient, total hip arthroplasty - Right, total knee arthroplasty - Bilateral, - - Esophageal dilation Smoking Status: Never smoker Drugs: None - Family History Paternal Family History: Family History (Last Reviewed 03/08/20 @ 13:02 by Amie Gordillo) Father CVA (cerebral vascular accident) Mother CAD (coronary artery disease) Congestive heart failure Family History: Reports: Stroke, No pertinent history - No history of lung disease or autoimmune disease Maternal Family History: Family History (Last Reviewed 03/08/20 @ 13:02 by Amie Gordillo) Father CVA (cerebral vascular accident) Mother CAD (coronary artery disease) Congestive heart failure Family History: Reports: Stroke, No pertinent history - No history of lung disease autoimmune disease Review of Systems All systems negative except as indicated General: Denies: Chills, Fever, Sweats Eyes: Denies: Visual changes - bilaterally, Diplopia ENT: Denies: Rhinorrhea, Sore throat Cardiovascular: Denies: Chest pain, Palpitations Respiratory: Reports: Dyspnea. Denies: Cough Gastrointestinal: Denies: Abdominal pain, Nausea, Vomiting, Diarrhea, Melena, Hematochezia Genitourinary: Denies: Dysuria, Hematuria, Frequency Musculoskeletal: Reports: Back pain. Denies: Extremity Pain Skin: Denies: Rash, Wounds Neurological: Denies: Headache, Weakness, Numbness Physical Exam Vital Signs/Narrative: Vital Signs Temp Pulse Resp BP Pulse Ox 03/19/20 10:06 26 H 147/104 H 03/19/20 10:05 98.7 F 95 19 H 121/82 H 100 03/19/20 10:01 98.7 F 95 19 H 121/82 H 100 Inital Vital Signs reviewed: Yes General: Well nourished, Well developed, No Acute Distress Head: Normocephalic, Atraumatic Eyes: Perrl, EOMI ENT: Moist mucous membranes, No rhinorrhea Neck: Supple, Nontender Cardiovascular: Regular rate, No murmurs, Irregular, - - 2+ radial pulse bilaterally Respiratory: No distress, CTA bilaterally, Chest nontender Abdomen: Soft, Nontender, Nondistended, Normal bowel sounds Back: Nontender, Normal Inspection Extremities: Nontender, Edema - 1+ pitting edema bilaterally, slightly worse on the right Skin: Normal color, No rash Neurological: Alert, Cranial nerves II-XII grossly intact, Normal Strength, Normal Sensation Psychological: Normal affect, Normal Mood Diagnostic/Tx/Re-eval - EKG Initial EKG Interpretation: - - EKG interpretation shows a ventricular rate of 114 bpm and irregularly irregular rhythm. Right bundle branch block present. Mild ST segment elevations in lead III and V1. Typical changes. No contingent lead ST changes. Prior EKG for comparison was performed on February 062019 which does have a similar appearance. - Medical Decision Making Patient presents to the emerge department for back pain and shortness of breath. She states that she still has some difficulty breathing although she is on her baseline oxygen and satting 100%. Her back pain has resolved at this point. Basic lab work being obtained along with chest x-ray. Reviewing the patient's medical history she has a history of thoracic aneurysm. She is still complaining of the back pain. That does not seem musculoskeletal. We will do a CT angios of the chest/abdomen/pelvis to evaluate this. She does have chronic kidney disease. I did discuss risks associated with contrast on top of this. Given the life-threatening situation of a thoracic aneurysm/dissection I do feel that this is still an appropriate test. CT scan did not show any evidence of dissection but unfortunately there were bilateral pulmonary embolism. She has been off of her Eliquis which was stopped by her foot caster whenever she had a upper GI bleed from a ulcer. Are planning on restarting the Eliquis in the next 2 weeks. Given the fact she has a bleeding ulcer we will start her on heparin without the bolus. She otherwise has been stable throughout ED stay. No evidence of right heart strain on CT scan. CT scan of the abdomen showed a mass off the posterior aspect of the left kidney. She does not have a elevated troponin. BNP is mildly elevated. She is on her baseline oxygen. Will bring into the hospital for further evaluation and management. This was all made aware to the patient and she understands and is agreeable with this. ED Disposition - Plan for ED Patient: Disposition: Acute Care Hospital [facility] Diagnosis: Bilateral pulmonary embolism, Dyspnea, Back pain, Kidney mass
[2020-03-19 10:22] LABS: Absolute Lymphocyte Count 0.85 X10^3/uL (0.83-4.51); Absolute Neutrophil Count 10.2 X10^3/uL (2.0-7.7); Basophil# 0.03 X10^3/uL; Basophil% 0.2 % (0-1); Eosinophil# 0.03 X10^3/uL; Eosinophils% 0.2 % (0-5); Hematocrit 35.7 % (37-47); Lymphocyte # 0.85 X10^3/ul (4.0); Lymphocyte % 6.9 % (19-41); Mean Corp Hgb Conc 30.8 g/dL (32-36); Mean Corpuscular Hgb 31.6 pg (27.0-32.0); Mean Corpuscular Volume 102.6 fL (81-99); Monocyte# 1.17 X10^3/uL; Monocyte% 9.5 % (0-10); NRBC Flagged by Analyzer 0 % (0-5); Neutrophil # 10.23 X10^3/uL (2.7-7.7); Neutrophil % 82.6 % (47-70); Platelet Count 224 K/mm3 (150-450); RBC Distribution Width CV 14.1 % (11.6-14.6); RBC Distribution Width SD 52.9 fl (35.1-43.9); Red Blood Count 3.48 M/mm3 (4.2-5.4); White Blood Count 12.4 K/mm3 (4.4-11.0)
[2020-03-19 10:37] LABS: Anion Gap 4 (5-15); BUN 29 mg/dL (7-18); BUN/Creat Ratio 18.7 RATIO (10-20); Calcium,Total 10.1 mg/dL (8.5-10.1); Chloride 107 mmol/L (98-107); Creatinine, Serum 1.55 mg/dL (0.55-1.02); EST Glomerular Filtration Rate 34 mL/min (>60); Est Glom Filt Rate - Afr Amer 41 mL/min (>60); Estimated Creatinine Clearance 35.52 ml/min; Glucose 116 mg/dL (74-106); Magnesium 1.9 mg/dL (1.6-2.6); Potassium 4.5 mmol/L (3.5-5.1); Sodium Level 142 mmol/L (136-145)
--- NOTE | 2020-03-19 11:06 | CT_ITS ---
STUDY: CTA CHEST REASON FOR EXAM: Female, 80 years old. Pain. History of aneurysm. TECHNIQUE: The examination was performed with the intravenous administration of 75 mL of Isovue-370. Post-processing of the angiographic images was performed, with multiplanar reformation and 3D reconstruction. Individualized dose optimization techniques were used for this CT. COMPARISON: CT of chest, December 26, 2016. FINDINGS: Normal enhancement of the main pulmonary artery and right and left pulmonary arteries. Incomplete filling defects in the right upper lobe peripheral pulmonary artery best seen on image 47 of series 2. There is not complete pulmonary emboli in peripheral pulmonary arteries of the medial right lower lobe. Incomplete thrombosis is also seen in the peripheral arteries left upper lobe. There is atherosclerotic tortuosity of the thoracic aorta without aneurysm. There is no demonstrated aortic dissection. Normal heart and pericardium. Normal mediastinum. Normal hilar regions. Normal visualized trachea and bronchi. The lungs are well expanded. Normal pulmonary parenchyma. Small right pleural effusion with subsegmental atelectasis at the right lung base. Normal chest wall structures. There are degenerative changes and dextroscoliosis of the thoracic spine. Normal visualized upper abdomen. CT/CTA Chest W/WO Contrast IMPRESSION: 1. Nonocclusive thrombus in the peripheral arteries the bilateral upper and medial right lower lobes. 2. No aortic aneurysm or dissection. 3. Small right pleural effusion and atelectasis. 4. Dextroscoliosis and degenerative changes of the thoracic spine. N.B. : The above information has been verbally conveyed by Zak Ashby DO to CASTRO MCDUFFIE MD, on 03/19/2020 12:07:07 (ET). Electronically Signed: Zak Ashby DO at 12:17 EDT Tel [phone], Service support ,
--- NOTE | 2020-03-19 11:08 | CT_ITS ---
STUDY: CTA CHEST REASON FOR EXAM: Female, 80 years old. Pain. History of aneurysm. TECHNIQUE: The examination was performed with the intravenous administration of 75 mL of Isovue-370. Post-processing of the angiographic images was performed, with multiplanar reformation and 3D reconstruction. Individualized dose optimization techniques were used for this CT. COMPARISON: CT of chest, December 26, 2016. FINDINGS: Normal enhancement of the main pulmonary artery and right and left pulmonary arteries. Incomplete filling defects in the right upper lobe peripheral pulmonary artery best seen on image 47 of series 2. There is not complete pulmonary emboli in peripheral pulmonary arteries of the medial right lower lobe. Incomplete thrombosis is also seen in the peripheral arteries left upper lobe. There is atherosclerotic tortuosity of the thoracic aorta without aneurysm. There is no demonstrated aortic dissection. Normal heart and pericardium. Normal mediastinum. Normal hilar regions. Normal visualized trachea and bronchi. The lungs are well expanded. Normal pulmonary parenchyma. Small right pleural effusion with subsegmental atelectasis at the right lung base. Normal chest wall structures. There are degenerative changes and dextroscoliosis of the thoracic spine. Normal visualized upper abdomen. IMPRESSION: 1. Nonocclusive thrombus in the peripheral arteries the bilateral upper and medial right lower lobes. 2. No aortic aneurysm or dissection. 3. Small right pleural effusion and atelectasis. 4. Dextroscoliosis and degenerative changes of the thoracic spine. N.B. : The above information has been verbally conveyed by Zak Ashby DO to CASTRO MCDUFFIE MD, on 03/19/2020 12:07:07 (ET). Electronically Signed: Zak Ashby DO at 12:17 EDT Tel [phone], Service support , STUDY: CTA OF THE ABDOMINAL AORTA REASON FOR EXAM: Female, 80 years old. Back pain. History of aneurysm. TECHNIQUE: Axial CT angiography multi-detector data acquisition was obtained from the diaphragm to the ischial tuberosities following intravenous administration of 75 mL of Isovue-370. Axial images and MIP images were reconstructed from the axial data set. Post-processing of the angiographic images was performed, with multiplanar reformation and 3D reconstruction. Individualized dose optimization techniques were used for this CT. TECHNICAL QUALITY: Good COMPARISON: CTA of the chest, March 19, 2020. MRI of the abdomen, May 22, 2017. CT of the abdomen and pelvis, April 27, 2017. Descriptors of Narrowing: None (0%) Mild (< 50%) Moderate (50-70%) Severe (70-90%) Subtotal/Total Occlusion (90-100%) Non-Evaluable (technically non-diagnostic FINDINGS: Abdominal aorta: . Atherosclerotic changes of the abdominal aorta without aneurysm, dissection or stricture. Celiac and superior mesenteric arteries: There is atherosclerotic changes of the origin of both the celiac artery and SMA without significant stenosis. Inferior mesenteric artery: No demonstrated narrowing. Right renal artery(arteries): No demonstrated narrowing. Left renal artery(arteries): No demonstrated narrowing. Right common iliac artery: Atherosclerotic changes with mild stenosis Right external iliac artery: No demonstrated narrowing. Right internal iliac artery: Atherosclerotic changes with mild stenosis Left common iliac artery: Atherosclerotic changes with mild stenosis Left external iliac artery: No demonstrated narrowing. Left internal iliac artery: Atherosclerotic changes with mild stenosis Small right pleural effusion with subsegmental atelectasis. Left lung is clear. The heart is normal in size. Normal liver. Normal gallbladder and biliary ductal system. Normal spleen. Normal pancreas. Normal adrenal glands. Normal right kidney and right ureter. There is no enhancing exophytic mass off the left kidney measuring 1.5 cm in diameter. The left kidney is otherwise unremarkable. Normal left ureter. Bilateral stomach. Normal small bowel. Sigmoid diverticulosis without acute inflammatory change. Otherwise normal colon. Question appendectomy. Normal urinary bladder. Normal uterus and adnexa. There is no pelvic lymphadenopathy. No free air or free fluid is seen within the peritoneal cavity. Normal abdominal wall. There is levoscoliosis and degenerative change lumbar spine. There is a right artificial hip. CT/CT ANGIO ABD&PEL W/O&W/DYE IMPRESSION: 1. No evidence of abdominal aortic aneurysm or dissection. 2. Enhancing mass off the posterior aspect of the left kidney. Cyst appears unchanged in size from an MRI of May 22, 2017. 3. Right pleural effusion with atelectasis. 4. Diverticulosis without acute inflammatory change. N.B. : The above information has been verbally conveyed by Zak Ashby DO to CASTRO MCDUFFIE MD, on 03/19/2020 12:07:07 (ET). Electronically Signed: Zak Ashby DO at 12:17 EDT Tel [phone], Service support ,
[2020-03-19 11:37] LABS: BNP,B-Type NATRIURETIC PEPTIDE 708.5 pg/mL (0-100)
[2020-03-19 12:39] LABS: Partial Thromboplast Time 28.1 Seconds (24.1-36.2)
[2020-03-19] MEDS: HEPARIN/D5w 25,000 UNITS 25,000 UNITS/250 ML IV.SOLN. 10 UNITS IV (13:05)
--- NOTE | 2020-03-19 13:23 | ECHOCS_ITS ---
Reason For Study: Acute PE Procedure This was a 2D Doppler, Color Flow transthoracic echocardiogram. The study was technically difficult. Contrast injection was performed. Exam performed portable in patient room. Left Ventricle Normal LV size. Left ventricular systolic function is normal. The estimated ejection fraction is 60 %. Stage 3 diastolic dysfunction. Right Ventricle Normal RV size. Normal systolic function. Atria The left atrium is mildly enlarged. Normal right atrium. Mitral Valve There is mild mitral annular calcification. Tricuspid Valve Normal tricuspid valve. Mild (1+) tricuspid valve insufficiency. Pulmonary artery systolic pressure is 28 mmHg. Aortic Valve Trisinus/trileaflet aortic valve. Mild focal aortic valve calcification. Medication Diluted definity 2ml given slow IV push to enhance endocardial definition. MMode/2D Measurements & Calculations LVIDd: 3.7 cm IVSd: 1.1 cm LA dimension: 4.1 cm LVIDs: 2.4 cm LVPWd: 0.96 cm FS: 34.9 % LAV(MOD-sp4): 78.0 ml LA A4 area: 25.7 cm2 RA A4 area: 17.7 cm2 Time Measurements MV dec time: 0.13 sec Doppler Measurements & Calculations MV E max rl: 106.4 cm/sec Ao V2 max: 88.3 cm/sec LV V1 max: 75.1 cm/sec MV A max rl: 31.0 cm/sec Ao max P.1 mmHg LV V1 max P.3 mmHg MV E/A: 3.4 MR max rl: 423.5 cm/sec PA V2 max: 71.3 cm/sec TR max rl: 243.1 cm/sec MR max P.7 mmHg TR max P.6 mmHg MR mean rl: 324.4 cm/sec MR mean P.0 mmHg MR VTI: 116.1 cm Interpretation Summary Normal LV size. Left ventricular systolic function is normal. The estimated ejection fraction is 60 %. Stage 3 diastolic dysfunction. Pulmonary artery systolic pressure is 28 mmHg. Compared to prior study, there is no significant change. Contrast injection was performed. Ordering Physician: Naina Llamas Referring Physician: Denny Romano Chi Performed By: Markus Palacio RCS
--- NOTE | 2020-03-19 13:54 | PCM.HP.STD ---
Problem List (1) Bilateral pulmonary embolism Status: Acute History of Present Illness Date of Admission: 03/19/20 The patient is a 80 year old F who presented to the ED from home today c/o SOB with exertion x 2 days. She is on 2.5 L at baseline and is typically not SOB with exertion when she wears her O2. She was also complaint of intermittent mid back pain that started yesterday. She had never had this before and it has no relieving or aggravating factors. She has no fever or chills and has been dong well. At baseline she lives with her and son and ambulates with a walker. A CTA was done in the ED and B upper lobe and R ML peripheral PE were identified. Her labs upon review are at baseline for her and her VS show slight tachycardia (115-120) that is Afib, her BP is stable at 120's/80-90's and her RR is 19-20 with an SpO2 98% on 2 L. At the end of January she was admitted with an UGIB and an ulcer was found with an adherent clot. This did not have to be intervened upon and she has been stable and per f/u notes from Dr. Velazquez she was cleared to restart her NOAC, stop the carafate and go to PPI daily. She was started on a heparin ggt in the ED. Past Medical History Past Medical History (Chronic Problems): Chronic Problems (Last Reviewed 03/08/20 @ 13:02 by Amie Gordillo) Pressure ulcer of right buttock, stage 2 (Chronic) Hyperlipidemia (Chronic) Obstructive sleep apnea (Chronic) Carotid stenosis (Chronic) Chronic kidney disease (Chronic) Dementia (Chronic) Meningioma (Chronic) Chronic diastolic heart failure (Chronic) Paroxysmal atrial fibrillation (Chronic) Diastolic CHF, acute (Chronic) Dyspnea on exertion (Chronic) Hyperparathyroidism (Chronic) Hypothyroidism (Chronic) Lymphomatoid papulosis (Chronic) Hypertension (Chronic) Obesity (Chronic) Right bundle branch block (Chronic) AV block, 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 Naina Llamas DO) Hyperlipidemia (Chronic) E78.5 Obstructive sleep apnea (Chronic) G47.33 Carotid stenosis (Chronic) I65.29 Chronic kidney disease (Chronic) N18.9 Dementia (Chronic) F03.90 Meningioma (Chronic) D32.9 Chronic diastolic heart failure (Chronic) I50.32 Paroxysmal atrial fibrillation (Chronic) I48.0 Diastolic CHF, acute (Chronic) I50.31 Dyspnea on exertion (Chronic) R06.09 Hyperparathyroidism (Chronic) E21.3 Hypothyroidism (Chronic) E03.9 Lymphomatoid papulosis (Chronic) C86.6 Hypertension (Chronic) I10 Obesity (Chronic) E66.9 Right bundle branch block (Chronic) I45.10 AV block, 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) I44.0 GERD (gastroesophageal reflux disease) (Chronic) K21.9 Anxiety and depression (Chronic) F41.9, F32.9 Thoracic aortic aneurysm (Chronic) I71.2 3.9 cm History of CVA (cerebrovascular accident) (Chronic) Z86.73 Osteoarthritis M19.90 Allergies adhesive Allergy (Verified 03/19/20 10:03) Rash irbesartan Allergy (Verified 03/19/20 10:03) Unknown solifenacin [From Vesicare] Allergy (Verified 03/19/20 10:03) Unknown sulindac [Sulindac] Allergy (Verified 03/19/20 10:03) Unknown atorvastatin [From Lipitor] Adverse Reaction (Verified 03/19/20 10:03) Unknown lisinopril Adverse Reaction (Verified 03/19/20 10:03) Other COUGH losartan potassium [From Cozaar] Adverse Reaction (Verified 03/19/20 10:03) Other metoprolol Adverse Reaction (Verified 03/19/20 10:03) GI Upset ramipril [From Altace] Adverse Reaction (Verified 03/19/20 10:03) Other tramadol Adverse Reaction (Verified 03/19/20 10:03) Unknown Home Medications: Ambulatory Orders Medication Instructions Recorded Atorvastatin Calcium [Lipitor] 10 mg PO QHS 04/17/17 Clobetasol Propionate [Temovate 1 applic TOPICAL BID 04/17/17 Cream (BK)] Fluticasone 0.05% [Flonase Nasal 1 spray NASAL DAILY 04/17/17 [place]] albuterol sulfate 90 mcg/actuation 2 puff INHALATION Q4H PRN g 09/27/17 aerosol inhaler hydrocortisone 2.5 % topical cream 1 applic TOPICAL BID-QID PRN 09/27/17 levothyroxine 100 mcg tablet 100 mcg PO .COMPLEX 09/27/17 flecainide 50 mg tablet 50 mg PO Q12H #180 tab 09/10/19 atenolol 25 mg tablet 25 mg PO BID #180 tab 11/13/19 phenylephrine HCl 0.5 % nasal spray 1 spray INTRANASAL QHS ml 11/20/19 nystatin 100,000 unit/gram topical 1 applic TOPICAL .COMPLEX PRN 12/16/19 powder potassium chloride 20 mEq 20 meq PO BID #180 tab 02/03/20 tablet,extended release Colchicine 0.6 mg PO DAILY PRN 02/06/20 Pantoprazole Sodium [Protonix] 40 mg PO DAILY #120 tab 02/10/20 Sucralfate [Carafate] 1 gm PO 1HR_ACHS #120 tab 02/10/20 allopurinol 300 mg tablet 300 mg PO DAILY 03/03/20 furosemide 40 mg tablet 40 mg PO DAILY tab 03/03/20 Colchicine 0.6 mg PO DAILY 03/04/20 Pantoprazole Sodium 40 mg PO DAILY #30 tablet. 03/08/20 Surgical History: Surgical History (Last Reviewed 03/19/20 @ 14:[address] 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: - - Tubal ligation Smoking Status: Never smoker Drugs: None - *Family History Paternal Family History: Family History (Last Reviewed 03/08/20 @ 13:02 by Amie Gordillo) Father CVA (cerebral vascular accident) Mother CAD (coronary artery disease) Congestive heart failure History Items: Stroke, No pertinent history - No history of lung disease or autoimmune disease Maternal Family History: Family History (Last Reviewed 03/08/20 @ 13:02 by Amie Gordillo) Father CVA (cerebral vascular accident) Mother CAD (coronary artery disease) Congestive heart failure History Items: Stroke, No pertinent history - No history of lung disease autoimmune disease Review of Systems Constitutional: Denies: Anorexia, Chills, Fever, Night Sweats, Malaise, Weakness, Weight Change, Fatigue Eyes: Denies: Blurred vision, Cataracts, Conjunctivae Inflammation, Double vision, Pain, Redness, Vision Change HEENT: Reports: Difficulty Hearing. Denies: Dysphasia, Ear Pain, Nasal bleeding, Nasal Congestion, Post Nasal Drip, Sinus Congestion, Sinus Drainage, Sore Throat Cardiovascular: Reports: Edema - chronic. Denies: Chest Pain, Claudication, Chest Pressure, Chest Tightness, Heaviness, Light Headedness, Orthopnea, Palpitations, Paroxysmal Noc. Dyspnea, Syncope Respiratory: Reports: Pleuritic Pain, Shortness of Breath, Shortness of breath upon exertion. Denies: Cough, Hemoptysis, Shortness of breath at rest, Sputum production, Wheezing Gastrointestinal: Denies: Abdominal Pain, Constipation, Diarrhea, Dyspepsia, Hematemesis, Hematochezia, Nausea, Melena, Vomiting Genitourinary: Reports: Incontinence, Urgency. Denies: Dysuria, Frequency, Hematuria, Hesitancy, Nocturia, Retention Musculoskeletal: Reports: Back Pain - midback. Denies: Joint Pain, Joint stiffness, Joint swelling, Joint Tenderness, Muscle pain, Neck Pain Skin: Denies: Dryness, Jaundice, Lesions, Pruritis, Rash, Skin Changes, Wounds Neurological: Denies: Balance problems, Blurred vision, Double vision, Change in Speech, Slurred speech, Confusion, Difficulty swallowing, Focal weakness, Headaches, Incoordination, Numbness, Tingling, Tremor, Seizures Psychiatric: Denies: Anxiety, Depression, Homicidal Ideations, Suicidal Ideations Endocrine: Denies: Change in Body Habitus, Heat/ Cold Intolerance, Polydipsia, Polyuria, Hx of Irradiation, Hx of Thyroiditis Hematologic/ Lymphatic: Reports: Anemia. Denies: Adenopathy, Easy Bleeding, Petechiae, Purpura VTE Information - Inpt Only VTE Present on Admission: Yes - PE VTE Mechan Device Prophylaxis: None VTE Pharm Prophylaxis ordered?: No VTE Suspected: Suspected PE Patient Problems: Active and Suspected Problems (Last Reviewed 06/30/20 @ 13:02 by Amie Gordillo) Bilateral pulmonary embolism (Acute) Dyspnea (Acute) Back pain (Acute) - Physical Exam Vitals/I&O's: Vital Signs Temp Pulse Resp BP Pulse Ox 98.7 F 117 H 19 H 108/72 99 03/19/20 12:41 03/19/20 13:00 03/19/20 13:00 03/19/20 13:00 03/19/20 13:00 Oxygen Flow Rate (L/min) 3 Oxygen Delivery Method Nasal Cannula Weight: 80.4 kg Body Mass Index (BMI) 35.8 Finger Stick Blood Glucose 132 General: Alert, Oriented x3, Cooperative, No apparent distress, Well developed, Well nourished, - - Elderly WF sitting up in bed HEENT: Atraumatic, PERRLA, EOMI, Normocephalic, EAC Clear Oral: Moist Mucosa, No Gingival or Mucosal Lesions/ Ulcerations Neck: Supple, No JVD, Negative Hepatojugular Reflux, No Nodes, No Nuchal Rigidity, Trachea Midline, Thyroid Normal Size and Texture Lungs: Clear to auscultation, No rhonchi, No wheeze, No rales, Diminished - diffusely Cardiovascular: Normal S1, Normal S2, Irregular Rate, Murmur - 2/6 SM, No rub noted, No Gallop, Tachycardic Abdomen: Bowel Sounds Present, Soft, Non Tender, Non-Distended, No Hepato-splenomegaly, Passing Flatus, Obese, No hernias noted Extremities: No clubbing, No cyanosis, Capillary Refill Less than 3 Seconds, No Calf Tenderness, Edema, Peripheral Pulses Normal Skin: No rashes, No breakdown, - - pale Musculoskeletal: No Tenderness to Palpation of Joints or Extremities, No Muscle Wasting, Arthritic Changes Lymphatic: No Cervical, Supraclavicular, or Inguinal Adenopathy Neurological: Cranial nerves II-XII grossly intact, Deep Tendon Reflexes 2+/4 and Symmetrical, Neuro grossly intact, Motor Exam 5/5 strength throughout, Muscle tone normal, Coordination normal Psych/Mental Status: Normal Affect, Appropriate, Alert and oriented to time, place, person, mood and affect Laboratory Results 03/19/20 10:10: WBC 12.4 H, RBC 3.48 L, Hgb 11.0 L, Hct 35.7 L, MCV 102.6 H, MCH 31.6, MCHC 30.8 L, RDW Std Deviation 52.9 H, RDW Coeff of Cricket 14.1, Plt Count 224, MPV 11.0, Immature Gran % (Auto) 0.600, Neut % (Auto) 82.6 H, Lymph % (Auto) 6.9 L, [place] % (Auto) 9.5, Eos % (Auto) 0.2, Baso % (Auto) 0.2, Absolute Neuts (auto) 10.2 H, Absolute Lymphs (auto) 0.85, Nucleated RBC % 0 03/19/20 10:10: Sodium 142, Potassium 4.5, Chloride 107, Carbon Dioxide 31.0, Anion Gap 4 L, BUN 29 H, Creatinine 1.55 H, Estim Creat Clear Calc 35.52, Est GFR (MDRD) Af Amer 41 L, Est GFR (MDRD) Non-Af 34 L, BUN/Creatinine Ratio 18.7, Glucose 116 H, Calcium 10.1, Magnesium 1.9, Troponin I < 0.015 03/19/20 10:10: B-Natriuretic Peptide 708.5 H 03/19/20 10:10: APTT 28.1 Current Medications Acetaminophen (Tylenol) 650 mg PO Q6H PRN PRN PRN Reason: Pain Score 1-10/Temp > 100.7 F Al Hydroxide/Mg Hydroxide (Mylanta Ii) 30 ml PO Q6H PRN PRN PRN Reason: Gastric Burning Albuterol Sulfate (Ventolin Aerosols) 2.5 mg INHALATION Q4H PRN PRN Reason: SOB &/OR WHEEZING Allopurinol (Zyloprim) 300 mg PO DAILY [facility] Atenolol (Tenormin (Beta Ivan)) 25 mg PO BID [facility] Atorvastatin Calcium (Lipitor) 10 mg PO QHS [facility] Colchicine (Colchicine) 0.6 mg PO DAILY [facility] Dextrose (D50w Syringe) 0 gm IV X1 PRN; Protocol PRN Reason: Hypoglycemia Flecainide Acetate (Tambocor) 50 mg PO Q12 [facility] Fluticasone Propionate (Flonase Nasal [place]) 1 spray NASAL DAILY [facility] Furosemide (Lasix) 40 mg PO DAILY [place] Glucagon () 1 mg IM .X1 PRN PRN Reason: Hypoglycemia Heparin Sodium (Porcine) (Heparin Na) 0 unit IV UD PRN; Protocol Heparin Sodium/Dextrose () 25,000 units in 250 mls @ 1 mls/hr IV .Q250H [facility]; Protocol Last Admin: 03/19/20 13:05 Dose: 1,000 units/hr, 10 mls/hr Documented by: Levothyroxine Sodium (Synthroid) 100 mcg PO [id number] [facility] Magnesium Hydroxide (Milk Of Magnesia) 30 ml PO DAILY PRN PRN PRN Reason: Constipation Melatonin (Melatonin) 3 mg PO QHS PRN PRN PRN Reason: INSOMNIA Pantoprazole Sodium (Protonix) 40 mg PO DAILY [place] Potassium Chloride (K-Dur) 20 meq PO BID [place] Sucralfate (Carafate) 1 gm PO 1HR_ACHS [facility] Assessment/Plan All Active Problems (Last Reviewed 03/08/20 @ 13:02 by Amie Gordillo) Upper GI bleeding (Acute) Acute blood loss anemia (Acute) Atrial fibrillation with rapid ventricular response (Acute) Bilateral pulmonary embolism (Acute) Dyspnea (Acute) Back pain (Acute) Bradycardia (Acute) Confusion (Resolved) Esophageal stricture (Resolved) Expressive aphasia (Resolved) Hypoxia (Resolved) B Nonocclusive Pulmonary Emboli B upper and R middle lobe -with h/o recent bleeding gastric ulcer start heparin ggt without bolus -if no bleeding will start eliquis tomorrow (2.5 BID) -check troponins -check echo -if bleeds will need filter -supplemental O2 (baseline 2 L and pt on 2 L) Recent UGIB 2/2 Gastric Ulcer -EGD on showed ulcer with adherent clot -NOAC held but per nots from Dr. Velazquez on 03/08 if CBC stable would be ok to start NOAC -[facility] and was 10.9 with the 03/08 CBC; 11.0 today -per note also ok to d/c carafate but contiue PPI daily indefinitely -Protonix daily at hs Mild Anemia -stable -recheck in am and watch for s/o bleeding with heparin ggt HTN/HFpEF/HPL/AF -continue Flecanide -contiue BB -continue Lasix -continue Chronic K supplementation -BNP up with PE--> recheck in am Chronic Hypoxic Respiratory Failure -on baseline O2 at 2 L -continue and monitor for decompensation with PE -continue HFA Gout -continue colchicine and allopurinol Hypothyroidism -continue Synthroid RODOLFO -non-compliant as does not tolerate CPAP CKD stage 3 -stable -repeat in am Mild Cognitive Impairment -seems pretty minimal as pt is quite knowledgeable about her history DVT -full anticoagulant Code status Full Inpatient E&M: 15841 Init Hosp L3
--- NOTE | 2020-03-19 14:44 | CASEMGMT ---
MILES ABRAHAM Face to Face with patient for initial transition planning/care coordination assessment. MILES ABRAHAM introduced self and role at [facility]. Patient lying in bed, alert and oriented. Patient willing to participate in assessment and is able to answer all questions appropriately. Care providers, pharmacy, and demographics verified. Patient wishes to discharge home with resumption of [facility] HHC and CCN. Patient states she has no further needs or concerns at this time. CM to follow for discharge planning needs that may arise. PCP: Juan Antonio Specialists: Art bucket turner Preferred Pharmacy: [facility] Insurance: [employer] Prescription Benefit: yes Living Will/HPOA: yes, Hector Casey HPOA LNOK: , son Living Arrangements: Patient lives with and son in 1 story home with 3 steps and railing to enter the home. Patient states she is independent for toileting and dressing, has aid for bathing Transportation: son DME/HHC: Patient states she has raised toilet, grab bars, walker, and oxygen with portable concentrator through [place]. Patient states she is current with [facility] HHC and CCN. Disposition Plan: Patient to discharge home with HHC, CCN, family support, and follow-up plans in place. Nola HUMMEL, RN, CM
[2020-03-19 19:45] LABS: Partial Thromboplast Time 76.9 Seconds (24.1-36.2)
[2020-03-19] MEDS: HEPARIN/D5w 25,000 UNITS 25,000 UNITS/250 ML IV.SOLN. 9 UNITS IV (21:24)
[2020-03-19] MEDS: Pantoprazole Sodium 40 MG Tablet PO (21:25)
[2020-03-19] MEDS: Atorvastatin Calcium 10 MG Tablet PO (21:26)
[2020-03-19] MEDS: Flecainide 100 MG Tablet 50 MG PO (21:26)
[2020-03-19] MEDS: Atenolol 25 MG Tablet PO (21:26)
[2020-03-20] VITALS (15 sets, daily range): BP systolic 89–109; BP diastolic 56–69; PULSE 91–125; RESP 16–18; TEMP 36.4–36.9; O2SAT 94–98
[2020-03-20 03:24] LABS: Absolute Lymphocyte Count 1.05 X10^3/uL (0.83-4.51); Basophil# 0.04 X10^3/uL; Basophil% 0.3 % (0-1); Eosinophil# 0.04 X10^3/uL; Eosinophils% 0.3 % (0-5); Hematocrit 32.4 % (37-47); Hemoglobin 10.2 g/dL (12.0-15.0); Lymphocyte # 1.05 X10^3/ul (4.0); Lymphocyte % 9.2 % (19-41); Mean Corp Hgb Conc 31.5 g/dL (32-36); Mean Corpuscular Hgb 31.3 pg (27.0-32.0); Mean Corpuscular Volume 99.4 fL (81-99); Mean Platelet Vol. 11.2 fl (6.2-12.0); Monocyte# 1.25 X10^3/uL; Monocyte% 10.9 % (0-10); NRBC Flagged by Analyzer 0 % (0-5); Neutrophil # 9.01 X10^3/uL (2.7-7.7); Neutrophil % 78.9 % (47-70); Platelet Count 196 K/mm3 (150-450); RBC Distribution Width CV 13.8 % (11.6-14.6); RBC Distribution Width SD 49.4 fl (35.1-43.9); Red Blood Count 3.26 M/mm3 (4.2-5.4); White Blood Count 11.4 K/mm3 (4.4-11.0)
[2020-03-20 03:42] LABS: BNP,B-Type NATRIURETIC PEPTIDE 535.8 pg/mL (0-100)
[2020-03-20 03:55] LABS: ALB/GLOB Ratio 0.9 RATIO (0.9-2.4); AST(SGOT) 13 U/L (15-37); Alanine Aminotransfer ALT/SGPT 19 U/L (13-56); Albumin, Serum 2.7 g/dL (3.2-5.0); Alkaline Phosphatase 73 U/L (45-117); Anion Gap 7 (5-15); BUN 28 mg/dL (7-18); BUN/Creat Ratio 18.9 RATIO (10-20); Calcium,Total 9.6 mg/dL (8.5-10.1); Chloride 103 mmol/L (98-107); Creatinine, Serum 1.48 mg/dL (0.55-1.02); EST Glomerular Filtration Rate 36 mL/min (>60); Est Glom Filt Rate - Afr Amer 43 mL/min (>60); Estimated Creatinine Clearance 35.44 ml/min; Glucose 102 mg/dL (74-106); Magnesium 1.8 mg/dL (1.6-2.6); Protein, Total 5.7 g/dL (6.4-8.2); Sodium Level 141 mmol/L (136-145)
[2020-03-20 04:07] LABS: Phosphorus 2.9 mg/dL (2.5-4.9)
--- NOTE | 2020-03-20 05:06 | NURSING ---
Heparin drip paused per protocol at this time, unable to adjust titration on MAR to reflect this.
--- NOTE | 2020-03-20 07:32 | NURSING ---
Heparin gtt running at 8ml/hr at shift change. Infusion/titration charting corrected with no actual change to rate of infusion.
[2020-03-20] MEDS: Acetaminophen 325 MG Tablet 650 MG PO ×2 (07:49→18:37)
[2020-03-20] MEDS: APIXABAN 2.5 MG TABLET PO ×2 (09:56→20:39)
[2020-03-20] MEDS: Flecainide 100 MG Tablet 50 MG PO ×2 (09:57→20:37)
[2020-03-20] MEDS: Furosemide 40 MG Tablet PO (09:57)
[2020-03-20] MEDS: Atenolol 25 MG Tablet PO ×2 (09:58→20:40)
[2020-03-20] MEDS: Allopurinol 300 MG Tablet PO (09:58)
[2020-03-20] MEDS: Fluticasone 0.05% 1 SPRAY NASAL.SRY NASAL (09:59)
--- NOTE | 2020-03-20 10:51 | PCM.PN.HOSP ---
<Popeye Jones - Last Filed: 03/20/20 11:31> Patient Problems: Active and Suspected Problems (Last Reviewed 03/19/20 @ 14:[address] Naina Llamas DO) Bilateral pulmonary embolism (Acute) Dyspnea (Acute) Back pain (Acute) Reason for Visit: chest / back pain Subjective: Ongoing chest and back pain. chest pain is in the area of the right breast described as burning, 4/10, and worse with deep breath. no fever/chills. minimal SOB. pt comfortable on home chronic o2 (2.5lpm nc). Pt reports she is minimally active and very sedentary at home. Mild tachy this AM, no palp, LH, or dizzines. Vitals/I&O's: Vital Signs Temp Pulse Resp BP Pulse Ox 98.2 F 118 H 18 96/64 96 03/20/20 09:22 03/20/20 09:22 03/20/20 09:22 03/20/20 09:22 03/20/20 09:22 Oxygen Flow Rate (L/min) 2 Oxygen Delivery Method Nasal Cannula Weight: 168 lb 6.931 oz Body Mass Index (BMI) 34.0 Finger Stick Blood Glucose 132 Intake and Output for Last 24 Hours 03/18/20 03/19/20 03/20/20 23:59 23:59 23:59 Intake Total 323.17 / 823.17 894.91 / 894.91 Output Total 700 / 700 Balance 323.17 / 523.17 194.91 / 194.91 General: Alert, Oriented x3, Cooperative HEENT: Atraumatic, PERRLA, EOMI, Normocephalic Neck: Supple, No JVD, Negative Carotid Bruits Lungs: Clear to auscultation, Diminished Cardiovascular: No murmurs, Irregular Rate, Tachycardic Abdomen: Bowel Sounds Present, Soft, Non Tender Extremities: No edema, Capillary Refill Less than 3 Seconds Skin: No rashes, No breakdown Musculoskeletal: No Tenderness to Palpation of Joints or Extremities Neurological: Cranial nerves II-XII grossly intact Psych/Mental Status: Normal Affect, Appropriate, Alert and oriented to time, place, person, mood and affect Laboratory Results 03/19/20 10:10: B-Natriuretic Peptide 708.5 H 03/19/20 10:10: APTT 28.1 03/19/20 13:55: Troponin I 0.019 03/19/20 16:28: Troponin I < 0.015 03/19/20 19:18: APTT 76.9 H 03/20/20 03:10: B-Natriuretic Peptide 535.8 H 03/20/20 03:10: WBC 11.4 H, RBC 3.26 L, Hgb 10.2 L, Hct 32.4 L, MCV 99.4 H, MCH 31.3, MCHC 31.5 L, RDW Std Deviation 49.4 H, RDW Coeff of Cricket 13.8, Plt Count 196, MPV 11.2, Immature Gran % (Auto) 0.400, Neut % (Auto) 78.9 H, Lymph % (Auto) 9.2 L, Bates % (Auto) 10.9 H, Eos % (Auto) 0.3, Baso % (Auto) 0.3, Absolute Neuts (auto) 9.0 H, Absolute Lymphs (auto) 1.05, Nucleated RBC % 0 03/20/20 03:10: Sodium 141, Potassium 4.0, Chloride 103, Carbon Dioxide 31.0, Anion Gap 7, BUN 28 H, Creatinine 1.48 H, Estim Creat Clear Calc 35.44, Est GFR (MDRD) Af Amer 43 L, Est GFR (MDRD) Non-Af 36 L, BUN/Creatinine Ratio 18.9, Glucose 102, Calcium 9.6, Magnesium 1.8, Total Bilirubin 0.90, AST 13 L, ALT 19, Alkaline Phosphatase 73, Total Protein 5.7 L, Albumin 2.7 L, Globulin 3.0, Albumin/Globulin Ratio 0.9 03/20/20 03:10: Phosphorus 2.9 03/20/20 03:10: APTT 85.0 H Current Medications Acetaminophen (Tylenol) 650 mg PO Q6H PRN PRN PRN Reason: Pain Score 1-10/Temp > 100.7 F Last Admin: 03/20/20 07:49 Dose: 650 mg Documented by: Al Hydroxide/Mg Hydroxide (Mylanta Ii) 30 ml PO Q6H PRN PRN PRN Reason: Gastric Burning Albuterol Sulfate (Ventolin Aerosols) 2.5 mg INHALATION Q4H PRN PRN Reason: SOB &/OR WHEEZING Allopurinol (Zyloprim) 300 mg PO DAILY [facility] Last Admin: 03/20/20 09:58 Dose: 300 mg Documented by: Apixaban (Eliquis) 2.5 mg PO BID [facility] Last Admin: 03/20/20 09:56 Dose: 2.5 mg Documented by: Atenolol (Tenormin (Beta Ivan)) 25 mg PO BID [facility] Last Admin: 03/20/20 09:58 Dose: 25 mg Documented by: Atorvastatin Calcium (Lipitor) 10 mg PO QHS [facility] Last Admin: 03/19/20 21:26 Dose: 10 mg Documented by: Colchicine (Colchicine) 0.6 mg PO DAILY [facility] Last Admin: 03/20/20 09:58 Dose: 0.6 mg Documented by: Dextrose (D50w Syringe) 0 gm IV X1 PRN; Protocol PRN Reason: Hypoglycemia Flecainide Acetate (Tambocor) 50 mg PO Q12 [facility] Last Admin: 03/20/20 09:57 Dose: 50 mg Documented by: Fluticasone Propionate (Flonase Nasal [place]) 1 spray NASAL DAILY [facility] Last Admin: 03/20/20 09:59 Dose: 1 applicatio Documented by: Furosemide (Lasix) 40 mg PO DAILY [facility] Last Admin: 03/20/20 09:57 Dose: 40 mg Documented by: Glucagon () 1 mg IM .X1 PRN PRN Reason: Hypoglycemia Levothyroxine Sodium (Synthroid) 100 mcg PO MoTuWeThFrSa@0600 [facility] Magnesium Hydroxide (Milk Of Magnesia) 30 ml PO DAILY PRN PRN PRN Reason: Constipation Melatonin (Melatonin) 3 mg PO QHS PRN PRN PRN Reason: INSOMNIA Nutritional Formula (Lactose Free) (Ensure Enlive) 120 ml PO 4X/DAY [facility] Last Admin: 03/20/20 10:08 Dose: 120 ml Documented by: Pantoprazole Sodium (Protonix) 40 mg PO DAILY@2000 [facility] Last Admin: 03/19/20 21:25 Dose: 40 mg Documented by: Potassium Chloride (K-Dur) 20 meq PO BID [facility] Last Admin: 03/20/20 09:58 Dose: 20 meq Documented by: Sodium Chloride () 10 - 40 ml IV UD PRN PRN Reason: SALINE FLUSH STROKE Vital Signs/Narrative: Vital Signs Temp Pulse Resp BP Pulse Ox 03/20/20 09:22 98.2 F 118 H 18 96/64 96 03/20/20 07:20 95 Medical Necessity - Tobacco Use Smoking Status: Never smoker Assessment/Plan All Active Problems (Last Reviewed 03/19/20 @ 14:[address] Naina Llamas DO) Upper GI bleeding (Acute) Acute blood loss anemia (Acute) Atrial fibrillation with rapid ventricular response (Acute) Bilateral pulmonary embolism (Acute) Dyspnea (Acute) Back pain (Acute) Bradycardia (Acute) Confusion (Resolved) Esophageal stricture (Resolved) Expressive aphasia (Resolved) Hypoxia (Resolved) 1. BL peripheral PEs - heparin to eliquis. repeat AM CBC and watch for bleeding. ongoing tachy. echo in AM. Trop neg x 3. BNP somewhat elevated. 2. Recent upper GI bleed 2/2 gastric ulcer, restarted anticoag given PE, continue PPI. off carafate. 3. Chronic hypoxic resp failure 2/2 COPD/CHF - pt is unclear about if she truly has COPD saying that she was told she had it at one point. Neither CHF or COPD with acute exacerbation at this point. Continue home meds, prn aerosols. avoid heavy albuterol use with tachycardia. 4. Chronic afib - flecainide, atenolol, eliquis. tachy 2/2 PE. 5. Hypothyroidism - synthroid 6. HLD - statin 7. HTN - stable 8. Hx gout- allopurinol/colchicine. 9. CKDIII - stable DVT ppx: eliquis DC planning: monitor overnight for bleeding, likely home tomorrow after echo. This patient was seen by Popeye Jones PA-C under the supervision of Dr. Llamas. <Naina Llamas - Last Filed: 03/20/20 12:20> Subjective: I agree with the above and the following is a reflection of my own independent history and exam Still with pain and SOB that is worse than baseline. Feels a bit better at times. Still some tachycardia at times diana with exertion. Vitals/I&O's: Vital Signs Temp Pulse Resp BP Pulse Ox 98.2 F 118 H 18 96/64 96 03/20/20 09:22 03/20/20 09:22 03/20/20 09:22 03/20/20 09:22 03/20/20 09:22 Oxygen Flow Rate (L/min) 2 Oxygen Delivery Method Nasal Cannula Weight: 76.4 kg Body Mass Index (BMI) 34.0 Finger Stick Blood Glucose 132 Intake and Output for Last 24 Hours 03/18/20 03/19/20 03/20/20 23:59 23:59 23:59 Intake Total 323.17 / 823.17 894.91 / 894.91 Output Total 700 / 700 Balance 323.17 / 523.17 194.91 / 194.91 General: Alert, Oriented x3, Cooperative, No apparent distress, Well developed, Well nourished, - - sitting up in chair, daughter at bedside HEENT: Atraumatic, PERRLA, EOMI, Normocephalic, EAC Clear Oral: Moist Mucosa, No Gingival or Mucosal Lesions/ Ulcerations Neck: Supple, No JVD, Negative Carotid Bruits, Negative Hepatojugular Reflux Lungs: Clear to auscultation, No rhonchi, No wheeze, No rales, Diminished - diffuse Cardiovascular: Regular rate, Normal S1, No murmurs, Irregular Rate, No rub noted, No Gallop, Tachycardic Abdomen: Bowel Sounds Present, Soft, Non Tender, Non-Distended, Obese, No hernias noted Extremities: No clubbing, No cyanosis, No edema, Capillary Refill Less than 3 Seconds, Peripheral Pulses Normal Skin: No rashes, No breakdown Musculoskeletal: No Tenderness to Palpation of Joints or Extremities, No Muscle Wasting, Arthritic Changes Lymphatic: No Cervical, Supraclavicular, or Inguinal Adenopathy Neurological: Cranial nerves II-XII grossly intact, Neuro grossly intact Psych/Mental Status: Normal Affect, Appropriate, Alert and oriented to time, place, person, mood and affect Laboratory Results 03/19/20 10:10: APTT 28.1 03/19/20 13:55: Troponin I 0.019 03/19/20 16:28: Troponin I < 0.015 03/19/20 19:18: APTT 76.9 H 03/20/20 03:10: B-Natriuretic Peptide 535.8 H 03/20/20 03:10: WBC 11.4 H, RBC 3.26 L, Hgb 10.2 L, Hct 32.4 L, MCV 99.4 H, MCH 31.3, MCHC 31.5 L, RDW Std Deviation 49.4 H, RDW Coeff of Cricket 13.8, Plt Count 196, MPV 11.2, Immature Gran % (Auto) 0.400, Neut % (Auto) 78.9 H, Lymph % (Auto) 9.2 L, Bates % (Auto) 10.9 H, Eos % (Auto) 0.3, Baso % (Auto) 0.3, Absolute Neuts (auto) 9.0 H, Absolute Lymphs (auto) 1.05, Nucleated RBC % 0 03/20/20 03:10: Sodium 141, Potassium 4.0, Chloride 103, Carbon Dioxide 31.0, Anion Gap 7, BUN 28 H, Creatinine 1.48 H, Estim Creat Clear Calc 35.44, Est GFR (MDRD) Af Amer 43 L, Est GFR (MDRD) Non-Af 36 L, BUN/Creatinine Ratio 18.9, Glucose 102, Calcium 9.6, Magnesium 1.8, Total Bilirubin 0.90, AST 13 L, ALT 19, Alkaline Phosphatase 73, Total Protein 5.7 L, Albumin 2.7 L, Globulin 3.0, Albumin/Globulin Ratio 0.9 03/20/20 03:10: Phosphorus 2.9 03/20/20 03:10: APTT 85.0 H Current Medications Acetaminophen (Tylenol) 650 mg PO Q6H PRN PRN PRN Reason: Pain Score 1-10/Temp > 100.7 F Last Admin: 03/20/20 07:49 Dose: 650 mg Documented by: Al Hydroxide/Mg Hydroxide (Mylanta Ii) 30 ml PO Q6H PRN PRN PRN Reason: Gastric Burning Albuterol Sulfate (Ventolin Aerosols) 2.5 mg INHALATION Q4H PRN PRN Reason: SOB &/OR WHEEZING Allopurinol (Zyloprim) 300 mg PO DAILY [facility] Last Admin: 03/20/20 09:58 Dose: 300 mg Documented by: Apixaban (Eliquis) 2.5 mg PO BID [facility] Last Admin: 03/20/20 09:56 Dose: 2.5 mg Documented by: Atenolol (Tenormin (Beta Ivan)) 25 mg PO BID [facility] Last Admin: 03/20/20 09:58 Dose: 25 mg Documented by: Atorvastatin Calcium (Lipitor) 10 mg PO QHS [facility] Last Admin: 03/19/20 21:26 Dose: 10 mg Documented by: Colchicine (Colchicine) 0.6 mg PO DAILY [facility] Last Admin: 03/20/20 09:58 Dose: 0.6 mg Documented by: Dextrose (D50w Syringe) 0 gm IV X1 PRN; Protocol PRN Reason: Hypoglycemia Flecainide Acetate (Tambocor) 50 mg PO Q12 [facility] Last Admin: 03/20/20 09:57 Dose: 50 mg Documented by: Fluticasone Propionate (Flonase Nasal [place]) 1 spray NASAL DAILY [facility] Last Admin: 03/20/20 09:59 Dose: 1 applicatio Documented by: Furosemide (Lasix) 40 mg PO DAILY [facility] Last Admin: 03/20/20 09:57 Dose: 40 mg Documented by: Glucagon () 1 mg IM .X1 PRN PRN Reason: Hypoglycemia Levothyroxine Sodium (Synthroid) 100 mcg PO MoTuWeThFrSa@0600 [facility] Magnesium Hydroxide (Milk Of Magnesia) 30 ml PO DAILY PRN PRN PRN Reason: Constipation Melatonin (Melatonin) 3 mg PO QHS PRN PRN PRN Reason: INSOMNIA Nutritional Formula (Lactose Free) (Ensure Enlive) 120 ml PO 4X/DAY [facility] Last Admin: 03/20/20 10:08 Dose: 120 ml Documented by: Pantoprazole Sodium (Protonix) 40 mg PO DAILY@1999 [facility] Last Admin: 03/19/20 21:25 Dose: 40 mg Documented by: Potassium Chloride (K-Dur) 20 meq PO BID [facility] Last Admin: 03/20/20 09:58 Dose: 20 meq Documented by: Sodium Chloride () 10 - 40 ml IV UD PRN PRN Reason: SALINE FLUSH STROKE Vital Signs/Narrative: Vital Signs Temp Pulse Resp BP Pulse Ox 03/20/20 09:22 98.2 F 118 H 18 96/64 96 Assessment/Plan B Nonocclusive Pulmonary Emboli B upper and R middle lobe -with h/o recent bleeding gastric ulcer start heparin ggt without bolus -stable on heparin--> start Eliquis 2.5 mg BID -trop neg x 3 -echo pending -if bleeds will need filter -supplemental O2 (baseline 2 L and pt on 2 L) Recent UGIB 2/2 Gastric Ulcer -EGD 02/07/2020 showed ulcer with adherent clot -NOAC held but per nots from Dr. Velazquez on 03/08 if CBC stable would be ok to start NOAC -[facility] and was 10.9 with the 03/08 CBC; 10.2 today -per note also ok to d/c carafate but continue PPI daily indefinitely -Protonix daily at hs Mild Anemia -stable -trend HTN/HFpEF/HPL/AF -continue Flecanide -contiue BB -continue Lasix -continue Chronic K supplementation -BNP down today some Chronic Hypoxic Respiratory Failure -on baseline O2 at 2.5 L -continue and monitor for decompensation with PE--> SpO2 stable at 96% but CALABRESE more than at baseline -continue HFA Gout -continue colchicine and allopurinol Hypothyroidism -continue Synthroid RODOLFO -non-compliant as does not tolerate CPAP CKD stage 3 -stable -repeat in am Mild Cognitive Impairment -seems pretty minimal as pt is quite knowledgeable about her history DVT -full anticoagulant Code status Full Dispo -per d/w daughter and pt today would like to go to TCU prior to d/c home -may need prior auth Inpatient E&M: [id number] [facility]
[2020-03-20] MEDS: Magnesium Oxide 400 MG Tablet 800 MG PO (13:30)
[2020-03-20] MEDS: Pantoprazole Sodium 40 MG Tablet PO (20:38)
[2020-03-20] MEDS: Atorvastatin Calcium 10 MG Tablet PO (20:38)
[2020-03-21] VITALS (8 sets, daily range): BP systolic 97–117; BP diastolic 63–75; PULSE 99–114; RESP 15–18; TEMP 36.5–37.1; O2SAT 95–97
[2020-03-21 06:00] LABS: Hematocrit 34.1 % (37-47); Hemoglobin 10.5 g/dL (12.0-15.0); Mean Corp Hgb Conc 30.8 g/dL (32-36); Mean Corpuscular Hgb 31.3 pg (27.0-32.0); Mean Corpuscular Volume 101.8 fL (81-99); Mean Platelet Vol. 11.3 fl (6.2-12.0); Platelet Count 211 K/mm3 (150-450); RBC Distribution Width SD 51.4 fl (35.1-43.9); Red Blood Count 3.35 M/mm3 (4.2-5.4); White Blood Count 11.2 K/mm3 (4.4-11.0)
[2020-03-21] MEDS: Levothyroxine 100 MCG Tablet PO (06:01)
[2020-03-21 06:28] LABS: Anion Gap 3 (5-15); BUN 37 mg/dL (7-18); BUN/Creat Ratio 27.4 RATIO (10-20); Calcium,Total 10.1 mg/dL (8.5-10.1); Chloride 106 mmol/L (98-107); Creatinine, Serum 1.35 mg/dL (0.55-1.02); EST Glomerular Filtration Rate 40 mL/min (>60); Est Glom Filt Rate - Afr Amer 48 mL/min (>60); Estimated Creatinine Clearance 39.05 ml/min; Glucose 108 mg/dL (74-106); Potassium 4.7 mmol/L (3.5-5.1); Sodium Level 142 mmol/L (136-145)
[2020-03-21] MEDS: APIXABAN 2.5 MG TABLET PO (08:25)
[2020-03-21] MEDS: Fluticasone 0.05% 1 SPRAY NASAL.SRY NASAL (08:25)
[2020-03-21] MEDS: Allopurinol 300 MG Tablet PO (08:26)
[2020-03-21] MEDS: Flecainide 100 MG Tablet 50 MG PO (08:26)
[2020-03-21] MEDS: Furosemide 40 MG Tablet PO (08:26)
[2020-03-21] MEDS: Atenolol 25 MG Tablet PO (08:27)
--- NOTE | 2020-03-21 09:39 | CASEMGMT ---
Patient would like to go to TCU. YIN called Yenni in TCU and she has a bed for patient. YIN told her SW will submit information to [facility] for authorization. YIN notified patient that TCU will have a bed for her, but we need to get her insurance to approve first. She verbalized understanding. YIN faxed all necessary information to [facility]. [facility] insurance approval. Nedra ROBLES MSW
--- NOTE | 2020-03-21 10:12 | PCM.EXTCARCO ---
- Diet 03/19/20 14:30 Diet: Cardiac/Low Cholesterol - Routine Orders/Code Status Suppository Type: Dulcolax 10mg Suppository Frequency: Daily PRN O2 Frequency: Continuous Keep PO Greater than or Equal to (%): 89 Routine Lab Work: CBC - 5 days, BMP - 5 days Code Status: Full Code - Therapies Physical Therapy: Eval and Treat Occupational Therapy: Eval and Treat - Problem/Diagnosis (1) Bilateral pulmonary embolism Status: Acute Current Visit: Yes (2) Dementia Status: Chronic Current Visit: No (3) Pressure ulcer of right buttock, stage 2 Status: Chronic Current Visit: No (4) Upper GI bleeding Status: Acute Current Visit: No (5) AV block, 1st degree Status: Chronic Current Visit: No (6) Anxiety and depression Status: Chronic Current Visit: No (7) Carotid stenosis Status: Chronic Current Visit: No (8) Chronic diastolic heart failure Status: Chronic Current Visit: No (9) Chronic kidney disease Status: Chronic Current Visit: No (10) GERD (gastroesophageal reflux disease) Status: Chronic Current Visit: No (11) History of CVA (cerebrovascular accident) Status: Chronic Current Visit: No (12) History of esophageal dilatation Status: Chronic Current Visit: No (13) Hyperlipidemia Status: Chronic Current Visit: No (14) Hyperparathyroidism Status: Chronic Current Visit: No (15) Hypertension Status: Chronic Current Visit: No (16) Hypothyroidism Status: Chronic Current Visit: No (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 Current Visit: No (18) Meningioma Status: Chronic Current Visit: No (19) Obstructive sleep apnea Status: Chronic Current Visit: No (20) Paroxysmal atrial fibrillation Status: Chronic Current Visit: No (21) Right bundle branch block Status: Chronic Current Visit: No (22) Thoracic aortic aneurysm Status: Chronic Comment: 3.9 cm Current Visit: No (23) Chronic respiratory failure with hypoxia Status: Chronic Current Visit: Yes - Allergies/Procedures Done in Hospital Allergies/Adverse Reactions: Allergies adhesive Allergy (Verified 03/19/20 10:03) Rash irbesartan Allergy (Verified 03/19/20 10:03) Unknown solifenacin [From Vesicare] Allergy (Verified 03/19/20 10:03) Unknown sulindac [Sulindac] Allergy (Verified 03/19/20 10:03) Unknown atorvastatin [From Lipitor] Adverse Reaction (Verified 03/19/20 10:03) Unknown lisinopril Adverse Reaction (Verified 03/19/20 10:03) Other COUGH losartan potassium [From Cozaar] Adverse Reaction (Verified 03/19/20 10:03) Other metoprolol Adverse Reaction (Verified 03/19/20 10:03) GI Upset ramipril [From Altace] Adverse Reaction (Verified 03/19/20 10:03) Other tramadol Adverse Reaction (Verified 03/19/20 10:03) Unknown Procedures: 2-D Echocardiogram - Type of Care/Length of Stay Estimated LOS: Convalescent Care Less Than 30 days Type of Care Needed: Skilled Rehab Potential: Fair Prognosis: Fair - Additional Orders/Day of Discharge Day of Discharge: 03/21/20 - Follow Up Care Primary Care Physician: Denny Romano Chi, MD [Primary Care Provider] - Please follow up with your Primary Care Physician in: 1-2 weeks Please Follow Up With: Josiane Velazquez MD When: 2 weeks Please Follow Up With: Marlen Llamas DO When: 3-4 weeks Please Follow Up With: Prakash Cordova MD When: 3-4 weeks
--- NOTE | 2020-03-21 10:31 | DS.PCM_ITS ---
<Popeye Jones - Last Filed: 03/21/20 10:33> Discharge Date and Diagnosis - Problem List Patient Problems: Active and Suspected Problems (Last Reviewed 03/19/20 @ 14:[address] Naina Llamas DO) Bilateral pulmonary embolism (Acute) Dyspnea (Acute) Back pain (Acute) Date of Admission: 03/19/20 Date of Discharge: 03/21/20 - Primary Discharge Diagnosis Acute Problems: Active Problems (Last Reviewed 03/19/20 @ 14:[address] Naina Llamas DO) Bilateral pulmonary embolism (Acute) chronic hypoxic resp failure 2/2 copd/chf hx gi bleed chronic afib - Secondary Discharge Diagnosis Chronic Problems: Chronic Problems (Last Reviewed 03/19/20 @ 14:[address] Naina Llamas DO) Pressure ulcer of right buttock, stage 2 (Chronic) Chronic respiratory failure with hypoxia (Chronic) Hyperlipidemia (Chronic) Obstructive sleep apnea (Chronic) Carotid stenosis (Chronic) Chronic kidney disease (Chronic) Dementia (Chronic) Meningioma (Chronic) Chronic diastolic heart failure (Chronic) Paroxysmal atrial fibrillation (Chronic) Diastolic CHF, acute (Chronic) Dyspnea on exertion (Chronic) Hyperparathyroidism (Chronic) Hypothyroidism (Chronic) Lymphomatoid papulosis (Chronic) Hypertension (Chronic) Obesity (Chronic) Right bundle branch block (Chronic) AV block, 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) GERD (gastroesophageal reflux disease) (Chronic) History of esophageal dilatation (Chronic) Anxiety and depression (Chronic) Thoracic aortic aneurysm (Chronic) 3.9 cm History of CVA (cerebrovascular accident) (Chronic) Hospital Course and Treatment Imaging Results: RAD/Chest 1 View (Portable) IMPRESSION: No acute abnormality or interval change. CTA chest IMPRESSION: 1. Nonocclusive thrombus in the peripheral arteries the bilateral upper and medial right lower lobes. 2. No aortic aneurysm or dissection. 3. Small right pleural effusion and atelectasis. 4. Dextroscoliosis and degenerative changes of the thoracic spine. cta abd: IMPRESSION: 1. Nonocclusive thrombus in the peripheral arteries the bilateral upper and medial right lower lobes. 2. No aortic aneurysm or dissection. 3. Small right pleural effusion and atelectasis. 4. Dextroscoliosis and degenerative changes of the thoracic spine. Operations: None Procedures: 2-D Echocardiogram Summary of Care Provided: Hospital course: The patient is a 80 year old F with pmhx notable for chronic afib, off eliquis due to recent upper GI bleed due to ulcer, pt of Dr. Velazquez, who presented to the ER with chest and back pain and SOB. CTA chest revealed BL PEs. She was admitted to the PCU and placed on tele. She was initiated on heparin drip and had no bleeding issues. Home PPI was continued. She was then transitioned to PO eliquis and kept for monitoring for bleeding. She had no issues and will continue eliquis as o/p. She was weak and SNF was recommended by patient, to which the patient was agreeable. She was discharged to SNF in stable condition. Echo is pending at this time. She will need monitoring for black stools and need follow up with her general surgeon. She should also have routine follow up with her lawn service supervisor Dr Cordova and her neprhologist Dr. Llamas. This patient was seen by Popeye Jones PA-C under the supervision of Doctor Erwin. [] Patient Problems: Active and Suspected Problems (Last Reviewed 03/19/20 @ 14:[address] Naina Llamas, DO) Bilateral pulmonary embolism (Acute) Dyspnea (Acute) Back pain (Acute) - Physical Exam Vitals/I&O's: Vital Signs Temp Pulse Resp BP Pulse Ox 97.7 F L 114 H 18 117/64 97 03/21/20 08:20 03/21/20 08:20 03/21/20 08:20 03/21/20 08:20 03/21/20 08:20 Oxygen Flow Rate (L/min) 2 Oxygen Delivery Method Nasal Cannula Weight: 169 lb 12.095 oz Body Mass Index (BMI) 34.0 Finger Stick Blood Glucose 132 Intake and Output for Last 24 Hours 03/19/20 03/20/20 03/21/20 23:59 23:59 23:59 Intake Total 323.17 / 823.17 1494.91 / 1494.91 230 / 230 Output Total 1700 / 1700 400 / 400 Balance 323.17 / 523.17 -205.09 / -205.09 -170 / -170 General: Alert, Oriented x3, Cooperative HEENT: Atraumatic, PERRLA, EOMI, Normocephalic Neck: Supple, No JVD, Negative Carotid Bruits Lungs: Clear to auscultation, Diminished Cardiovascular: No murmurs, Irregular Rate, Tachycardic - low 100s. Abdomen: Bowel Sounds Present, Soft, Non Tender Extremities: No edema, Capillary Refill Less than 3 Seconds Skin: No rashes, No breakdown Musculoskeletal: No Tenderness to Palpation of Joints or Extremities Neurological: Cranial nerves II-XII grossly intact Psych/Mental Status: Normal Affect, Appropriate, Alert and oriented to time, place, person, mood and affect Laboratory Results 03/21/20 05:30: WBC 11.2 H, RBC 3.35 L, Hgb 10.5 L, Hct 34.1 L, MCV 101.8 H, MCH 31.3, MCHC 30.8 L, RDW Std Deviation 51.4 H, RDW Coeff of Cricket 14.0, Plt Count 211, MPV 11.3 03/21/20 05:30: Sodium 142, Potassium 4.7, Chloride 106, Carbon Dioxide 33.0 H, Anion Gap 3 L, BUN 37 H, Creatinine 1.35 H, Estim Creat Clear Calc 39.05, Est GFR (MDRD) Af Amer 48 L, Est GFR (MDRD) Non-Af 40 L, BUN/Creatinine Ratio 27.4 H , Glucose 108 H, Calcium 10.1 Current Medications Acetaminophen (Tylenol) 650 mg PO Q6H PRN PRN PRN Reason: Pain Score 1-10/Temp > 100.7 F Last Admin: 03/20/20 18:37 Dose: 650 mg Documented by: Al Hydroxide/Mg Hydroxide (Mylanta Ii) 30 ml PO Q6H PRN PRN PRN Reason: Gastric Burning Albuterol Sulfate (Ventolin Aerosols) 2.5 mg INHALATION Q4H PRN PRN Reason: SOB &/OR WHEEZING Allopurinol (Zyloprim) 300 mg PO DAILY [facility] Last Admin: 03/21/20 08:26 Dose: 300 mg Documented by: Apixaban (Eliquis) 2.5 mg PO BID [facility] Last Admin: 03/21/20 08:25 Dose: 2.5 mg Documented by: Atenolol (Tenormin (Beta Ivan)) 25 mg PO BID [facility] Last Admin: 03/21/20 08:27 Dose: 25 mg Documented by: Atorvastatin Calcium (Lipitor) 10 mg PO QHS [facility] Last Admin: 03/20/20 20:38 Dose: 10 mg Documented by: Colchicine (Colchicine) 0.6 mg PO DAILY [facility] Last Admin: 03/21/20 08:25 Dose: 0.6 mg Documented by: Dextrose (D50w Syringe) 0 gm IV X1 PRN; Protocol PRN Reason: Hypoglycemia Flecainide Acetate (Tambocor) 50 mg PO Q12 [facility] Last Admin: 03/21/20 08:26 Dose: 50 mg Documented by: Fluticasone Propionate (Flonase Nasal [place]) 1 spray NASAL DAILY [facility] Last Admin: 03/21/20 08:25 Dose: 1 applicatio Documented by: Furosemide (Lasix) 40 mg PO DAILY [facility] Last Admin: 03/21/20 08:26 Dose: 40 mg Documented by: Glucagon () 1 mg IM .X1 PRN PRN Reason: Hypoglycemia Levothyroxine Sodium (Synthroid) 100 mcg PO MoTuWeThFrSa@0600 [facility] Last Admin: 03/21/20 06:01 Dose: 100 mcg Documented by: Magnesium Hydroxide (Milk Of Magnesia) 30 ml PO DAILY PRN PRN PRN Reason: Constipation Melatonin (Melatonin) 3 mg PO QHS PRN PRN PRN Reason: INSOMNIA Metoprolol Tartrate (Lopressor (Beta Ivan)) 2.5 mg IV Q6H PRN PRN PRN Reason: HR >120 Nutritional Formula (Lactose Free) (Ensure Enlive) 120 ml PO 4X/DAY [facility] Last Admin: 03/21/20 08:36 Dose: 120 ml Documented by: Pantoprazole Sodium (Protonix) 40 mg PO DAILY@2000 [facility] Last Admin: 03/20/20 20:38 Dose: 40 mg Documented by: Potassium Chloride (K-Dur) 20 meq PO BID [facility] Last Admin: 03/21/20 08:26 Dose: 20 meq Documented by: Sodium Chloride () 10 - 40 ml IV UD PRN PRN Reason: SALINE FLUSH Discharge Diet: Low fat/ Low Cholesterol, 2000 mg Sodium Diet Discharge Activity: Return to Normal Activity Home Medications: Medications to take at Discharge Atorvastatin Calcium [Lipitor] 10 mg PO QHS 04/17/17 Fluticasone 0.05% [Flonase Nasal [place]] 1 spray NASAL DAILY 04/17/17 albuterol sulfate 90 mcg/actuation aerosol inhaler 2 puff INHALATION Q4H PRN g 09/27/17 levothyroxine 100 mcg tablet 100 mcg PO .COMPLEX 09/27/17 flecainide 50 mg tablet 50 mg PO Q12H #180 tab 09/10/19 atenolol 25 mg tablet 25 mg PO BID #180 tab 11/13/19 nystatin 100,000 unit/gram topical powder 1 applic TOPICAL .COMPLEX PRN 12/16/19 potassium chloride 20 mEq tablet,extended release 20 meq PO BID #180 tab 02/03/20 Colchicine 0.6 mg PO DAILY PRN 02/06/20 Sucralfate [Carafate] 1 gm PO 1HR_ACHS #120 tab 02/10/20 allopurinol 300 mg tablet 300 mg PO DAILY 03/03/20 furosemide 40 mg tablet 40 mg PO DAILY tab 03/03/20 Colchicine 0.6 mg PO DAILY 03/04/20 Pantoprazole Sodium 40 mg PO DAILY #30 tablet. 03/08/20 Acetaminophen [Tylenol Tablet] 650 mg PO Q6H PRN PRN tab 03/21/20 Apixaban [Eliquis] 2.5 mg PO BID tab 03/21/20 Ensure Enlive 120 ml PO 4X/DAY liquid 03/21/20 Mag Hydrox/Al Hydrox/Simeth [Mylanta II] 30 ml PO Q6H PRN PRN udc 03/21/20 Magnesium Hydroxide [Milk Of Magnesia] 30 ml PO DAILY PRN PRN udc 03/21/20 Primary Care Physician: Denny Romano Chi, MD [Primary Care Provider] - Please follow up with your Primary Care Physician in: 1-2 weeks Please Follow Up With: Josiane Velazquez MD When: 2 weeks Please Follow Up With: Marlen Llamas DO When: 3-4 weeks Please Follow Up With: Prakash Cordova MD When: 3-4 weeks Disposition: [facility] facility Minutes spent on discharge:: 35 Patient Condition:: Stable Medical Necessity - Tobacco Use Smoking Status: Never smoker Meaningful Use Info Meaningful Use Diagnoses (Choose all that apply): VTE - VTE Anticoag overlap given w/in hospital stay or rx'd at dc?: No Reason overlap not ordered, prescribed, or given for 5 days: Procedure Not Indicated <Benjamin Erwin - Last Filed: 03/21/20 12:18> Discharge Date and Diagnosis - Primary Discharge Diagnosis Acute Problems: Active Problems (Last Reviewed 03/19/20 @ 14:[address] Naina Llamas DO) Bilateral pulmonary embolism (Acute) Dyspnea (Acute) Back pain (Acute) - Secondary Discharge Diagnosis Chronic Problems: Chronic Problems (Last Reviewed 03/19/20 @ 14:[address] Naina Llamas DO) Pressure ulcer of right buttock, stage 2 (Chronic) Chronic respiratory failure with hypoxia (Chronic) Hyperlipidemia (Chronic) Obstructive sleep apnea (Chronic) Carotid stenosis (Chronic) Chronic kidney disease (Chronic) Dementia (Chronic) Meningioma (Chronic) Chronic diastolic heart failure (Chronic) Paroxysmal atrial fibrillation (Chronic) Diastolic CHF, acute (Chronic) Dyspnea on exertion (Chronic) Hyperparathyroidism (Chronic) Hypothyroidism (Chronic) Lymphomatoid papulosis (Chronic) Hypertension (Chronic) Obesity (Chronic) Right bundle branch block (Chronic) AV block, 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) GERD (gastroesophageal reflux disease) (Chronic) History of esophageal dilatation (Chronic) Anxiety and depression (Chronic) Thoracic aortic aneurysm (Chronic) 3.9 cm History of CVA (cerebrovascular accident) (Chronic) Hospital Course and Treatment Summary of Care Provided: This patient was seen in conjunction with Popeye Jones PA-C . I have independently interviewed and examined the patient and reviewed pertinent historical, laboratory, and other data. Please refer to Popeye Jones PA-C note for details of this patient's presentation, findings, and recommendations. I have reviewed Popeye Jones PA-C note and concur with documented findings. In brief, patient is an 80-year-old lady admitted with shortness of breath. Patient was on Eliquis for A. fib which have been held. Imaging studies obtained on admission was consistent with bilateral pulmonary emboli in the peripheral arteries. Eliquis was resumed she was also found to be significantly deconditioned Hospital course: As documented above - Physical Exam Vitals/I&O's: Vital Signs Temp Pulse Resp BP Pulse Ox 97.7 F L 114 H 18 117/64 97 03/21/20 08:20 03/21/20 08:20 03/21/20 08:20 03/21/20 08:20 03/21/20 08:20 Oxygen Flow Rate (L/min) 2 Oxygen Delivery Method Nasal Cannula Weight: 77 kg Body Mass Index (BMI) 34.0 Finger Stick Blood Glucose 132 Intake and Output for Last 24 Hours 03/19/20 03/20/20 03/21/20 23:59 23:59 23:59 Intake Total 323.17 / 823.17 1494.91 / 1494.91 230 / 230 Output Total 1700 / 1700 400 / 400 Balance 323.17 / 523.17 -205.09 / -205.09 -170 / -170 Laboratory Results 03/21/20 05:30: WBC 11.2 H, RBC 3.35 L, Hgb 10.5 L, Hct 34.1 L, MCV 101.8 H, MCH 31.3, MCHC 30.8 L, RDW Std Deviation 51.4 H, RDW Coeff of Cricket 14.0, Plt Count 211, MPV 11.3 03/21/20 05:30: Sodium 142, Potassium 4.7, Chloride 106, Carbon Dioxide 33.0 H, Anion Gap 3 L, BUN 37 H, Creatinine 1.35 H, Estim Creat Clear Calc 39.05, Est GFR (MDRD) Af Amer 48 L, Est GFR (MDRD) Non-Af 40 L, BUN/Creatinine Ratio 27.4 H , Glucose 108 H, Calcium 10.1 Current Medications Acetaminophen (Tylenol) 650 mg PO Q6H PRN PRN PRN Reason: Pain Score 1-10/Temp > 100.7 F Last Admin: 03/20/20 18:37 Dose: 650 mg Documented by: Al Hydroxide/Mg Hydroxide (Mylanta Ii) 30 ml PO Q6H PRN PRN PRN Reason: Gastric Burning Albuterol Sulfate (Ventolin Aerosols) 2.5 mg INHALATION Q4H PRN PRN Reason: SOB &/OR WHEEZING Allopurinol (Zyloprim) 300 mg PO DAILY [facility] Last Admin: 03/21/20 08:26 Dose: 300 mg Documented by: Apixaban (Eliquis) 2.5 mg PO BID [facility] Last Admin: 03/21/20 08:25 Dose: 2.5 mg Documented by: Atenolol (Tenormin (Beta Ivan)) 25 mg PO BID [facility] Last Admin: 03/21/20 08:27 Dose: 25 mg Documented by: Atorvastatin Calcium (Lipitor) 10 mg PO QHS [facility] Last Admin: 03/20/20 20:38 Dose: 10 mg Documented by: Colchicine (Colchicine) 0.6 mg PO DAILY [facility] Last Admin: 03/21/20 08:25 Dose: 0.6 mg Documented by: Dextrose (D50w Syringe) 0 gm IV X1 PRN; Protocol PRN Reason: Hypoglycemia Flecainide Acetate (Tambocor) 50 mg PO Q12 [facility] Last Admin: 03/21/20 08:26 Dose: 50 mg Documented by: Fluticasone Propionate (Flonase Nasal [place]) 1 spray NASAL DAILY [facility] Last Admin: 03/21/20 08:25 Dose: 1 applicatio Documented by: Furosemide (Lasix) 40 mg PO DAILY [facility] Last Admin: 03/21/20 08:26 Dose: 40 mg Documented by: Glucagon () 1 mg IM .X1 PRN PRN Reason: Hypoglycemia Levothyroxine Sodium (Synthroid) 100 mcg PO MoTuWeThFrSa@0600 [facility] Last Admin: 03/21/20 06:01 Dose: 100 mcg Documented by: Magnesium Hydroxide (Milk Of Magnesia) 30 ml PO DAILY PRN PRN PRN Reason: Constipation Melatonin (Melatonin) 3 mg PO QHS PRN PRN PRN Reason: INSOMNIA Metoprolol Tartrate (Lopressor (Beta Ivan)) 2.5 mg IV Q6H PRN PRN PRN Reason: HR >120 Nutritional Formula (Lactose Free) (Ensure Enlive) 120 ml PO 4X/DAY [facility] Last Admin: 03/21/20 08:36 Dose: 120 ml Documented by: Pantoprazole Sodium (Protonix) 40 mg PO DAILY@1999 [facility] Last Admin: 03/20/20 20:38 Dose: 40 mg Documented by: Potassium Chloride (K-Dur) 20 meq PO BID [facility] Last Admin: 03/21/20 08:26 Dose: 20 meq Documented by: Sodium Chloride () 10 - 40 ml IV UD PRN PRN Reason: SALINE FLUSH Inpatient E&M: 34015 Disch Hosp
--- NOTE | 2020-03-21 10:48 | CASEMGMT ---
Addendum entered by Nola Joshua 03/21/20 13:54: Message left for Lorie at [facility] to advise that pt going to TCU at this time. Gerber AQUINO CM Original Note: Moncho at [facility] updated that pt's plan is to go to TCU at discharge, voices understanding. Gerber AQUINO CM
--- NOTE | 2020-03-21 11:08 | PHA.DC.MR ---
Pharmacy Service has performed discharge medication reconciliation for this patient upon transfer to TCU The patient's discharge medication list was reviewed for discrepancies and discrepancies were resolved. Home Medications Atorvastatin Calcium [Lipitor] 10 mg PO QHS 04/17/17 Fluticasone 0.05% [Flonase Nasal [place]] 1 spray NASAL DAILY 04/17/17 albuterol sulfate 90 mcg/actuation aerosol inhaler 2 puff INHALATION Q4H PRN g 09/27/17 levothyroxine 100 mcg tablet 100 mcg PO .COMPLEX 09/27/17 flecainide 50 mg tablet 50 mg PO Q12H #180 tab 09/10/19 atenolol 25 mg tablet 25 mg PO BID #180 tab 11/13/19 nystatin 100,000 unit/gram topical powder 1 applic TOPICAL .COMPLEX PRN 12/16/19 potassium chloride 20 mEq tablet,extended release 20 meq PO BID #180 tab 02/03/20 Colchicine 0.6 mg PO DAILY PRN 02/06/20 Sucralfate [Carafate] 1 gm PO 1HR_ACHS #120 tab 02/10/20 allopurinol 300 mg tablet 300 mg PO DAILY 03/03/20 furosemide 40 mg tablet 40 mg PO DAILY tab 03/03/20 Colchicine 0.6 mg PO DAILY 03/04/20 Pantoprazole Sodium 40 mg PO DAILY #30 tablet. 03/08/20 Acetaminophen [Tylenol Tablet] 650 mg PO Q6H PRN PRN tab 03/21/20 Apixaban [Eliquis] 2.5 mg PO BID tab 03/21/20 Ensure Enlive 120 ml PO 4X/DAY liquid 03/21/20 Mag Hydrox/Al Hydrox/Simeth [Mylanta II] 30 ml PO Q6H PRN PRN udc 03/21/20 Magnesium Hydroxide [Milk Of Magnesia] 30 ml PO DAILY PRN PRN udc 03/21/20
--- NOTE | 2020-03-21 11:33 | CASEMGMT ---
YIN was asked to talk with patient and her daughter as patient has some concerns. YIN met with patient and her daughter, introduced self and role at [facility]. Patient expressed her concerns with the doctor that is over TCU. She asked if Dr Cordova could be over her care while there and YIN told her that is not an option. SW offered to find another facility for her to go to for rehab. She declined this stating she loves [facility] and still wants to go to [facility]. YIN reminded her she is always in charge of her healthcare and can ask the physician to consult with Dr Cordova. YIN also told her SW will let the director in TCU know her concerns as well as the Cylinder Worker. SW also let them know that we should hear from insurance today so she will likely go to TCU today. Patient and her daughter thanked YIN for listening. YIN called Yenni in TCU and let her know about patient's concerns. YIN also e-mailed Chelo, the TCU SW. Plan: [facility] TCU pending insurance approval. Nedra ROBLES MSW
--- NOTE | 2020-03-21 16:48 | NURSING ---
Report called to TCU [facility].
== END 2020-03-21 16:47 | disposition skilled nursing facility (03) | DRG 176 ==
LOC: ED 12:23 → PCU 13:32
PROVIDERS: Internal Medicine; Physician Assistant; Admitting Provider Internal Medicine; Emergency Provider Emergency Medicine; PCP Family Medicine Geriatric Medicine; Visit Provider Internal Medicine
DX: I26.99 Other pulmonary embolism without acute cor pulmonale (principal); J96.11 Chronic respiratory failure with hypoxia; I48.20 Chronic atrial fibrillation, unspecified; I13.0 Hypertensive heart and chronic kidney disease with heart failure and stage 1 through stage 4 chronic kidney disease, or unspecified chronic kidney disease; I50.32 Chronic diastolic (congestive) heart failure; C86.6 Primary cutaneous CD30-positive T-cell proliferations; J44.9 Chronic obstructive pulmonary disease, unspecified; L89.312 Pressure ulcer of right buttock, stage 2; E78.5 Hyperlipidemia, unspecified; G47.33 Obstructive sleep apnea (adult) (pediatric); N28.89 Other specified disorders of kidney and ureter; F03.90 Unspecified dementia, unspecified severity, without behavioral disturbance, psychotic disturbance, mood disturbance, and anxiety; E03.9 Hypothyroidism, unspecified; F32.9 Major depressive disorder, single episode, unspecified; F41.9 Anxiety disorder, unspecified; I44.0 Atrioventricular block, first degree; I45.10 Unspecified right bundle-branch block; K21.9 Gastro-esophageal reflux disease without esophagitis; Z86.73 Personal history of transient ischemic attack (TIA), and cerebral infarction without residual deficits; Z96.649 Presence of unspecified artificial hip joint; Z82.49 Family history of ischemic heart disease and other diseases of the circulatory system; Z91.19 Patient's noncompliance with other medical treatment and regimen; Z86.011 Personal history of benign neoplasm of the brain; Z85.72 Personal history of non-Hodgkin lymphomas; Z90.49 Acquired absence of other specified parts of digestive tract; Z82.3 Family history of stroke; Z96.659 Presence of unspecified artificial knee joint; Z87.11 Personal history of peptic ulcer disease; E66.9 Obesity, unspecified; Z68.35 Body mass index [BMI] 35.0-35.9, adult; M10.9 Gout, unspecified; N18.3 Chronic kidney disease, stage 3 (moderate); E21.3 Hyperparathyroidism, unspecified; I48.0 Paroxysmal atrial fibrillation; I71.2 Thoracic aortic aneurysm, without rupture
CPT/HCPCS: 36415; 71045; 71275; 74174; 80048; 80053; 83735; 83880; 84100; 84484; 85025; 85027; 85730; 87635; 93005; 93306; 97110; 97116; 97163; 97166; 97530; 97535; 97802; 99212; 99285; G2023; Q9957; Q9967; A4216; C8929; G0463; U0003

== ENCOUNTER 2020-03-21 16:59 | Inpatient (IN) | payer MEDICARE, SELFPAY ==
[2020-03-19 14:41] VITALS: BMI 34.0
[2020-03-21 17:16] VITALS: BP 100/67; PULSE 127; PULSE 135; RESP 16; RESP 18; TEMP 37.1; O2SAT 95; O2SAT 97; BMI 34.2
--- NOTE | 2020-03-21 19:45 | HP.PCM_ITS ---
Problem List (1) Debility Status: Acute (2) Shortness of breath Status: Acute (3) Gastric ulcer Status: Chronic (4) Stroke Status: Chronic (5) DVT (deep venous thrombosis) Status: Chronic (6) Atrial fibrillation Status: Chronic (7) Thoracic aortic aneurysm Status: Chronic (8) Chronic diastolic (congestive) heart failure Status: Chronic (9) COPD (chronic obstructive pulmonary disease) Status: Chronic (10) Gout Status: Chronic (11) Allergic rhinitis Status: Chronic (12) Hypokalemia Status: Chronic (13) Bilateral pulmonary embolism Status: Acute (14) Hyperlipidemia Status: Chronic Qualifiers: (15) Hypothyroidism Status: Chronic Qualifiers: (16) GERD (gastroesophageal reflux disease) Status: Chronic History of Present Illness Date of Admission: 03/21/20 Chief Complaint: Here for rehabilitation, strengthening, prior to discharge home with . 03/19/2020 The patient is a 80 year old Female with below past medical history presented to [facility] Emergency Department with shortness of breath. 03/19/2020 Chest X-ray negative. 03/19/2020 EKG showed atrial fibrillation with rapid ventricular response, incomplete right bundle branch block, possible right ventricular hypertrophy, ST elevation consider inferior injury of acute infract. Consider right ventricular involvement in acute infarct. 03/19/2020 CTA chest bilateral pulmonary embolism. Shortness of breath, intermittent back pain. Oxygen dependent chronic obstructive pulmonary disease. Eliquis recently held due to upper gastrointestinal bleed from gastric ulcer. Heparin IV for bilateral pulmonary embolism. Troponin okay, BNP mildly elevated. 03/19/2020 Admit to Hospital. Heparin IV bilateral pulmonary embolism. Pantoprazole for gastric ulcer, okay to stop Sucralfate. Ok to restart Eliquis if Hemoglobin stable. 03/20/2020 Troponin negative x 3. Eliquis restarted for pulmonary embolism/atrial fibrillation, monitor for bleeding. 03/21/2020 Echo normal LV size. Left ventricular systolic function normal. EF 60%. Stage 3 diastolic dysfunction. Pulmonary artery systolic pressure 28mm HG. 03/21/2020 Admit to TCU with debility, here for rehabilitation, strengthening, prior to discharge home with . Past Medical History Past Medical History (Chronic Problems): Chronic Problems (Last Reviewed 03/19/20 @ 14:[address] Naina Llamas DO) Pressure ulcer of right buttock, stage 2 (Chronic) Chronic respiratory failure with hypoxia (Chronic) Gastric ulcer (Chronic) Stroke (Chronic) DVT (deep venous thrombosis) (Chronic) Atrial fibrillation (Chronic) Thoracic aortic aneurysm (Chronic) Chronic diastolic (congestive) heart failure (Chronic) COPD (chronic obstructive pulmonary disease) (Chronic) Gout (Chronic) Allergic rhinitis (Chronic) Hypokalemia (Chronic) Hyperlipidemia (Chronic) Obstructive sleep apnea (Chronic) Carotid stenosis (Chronic) Chronic kidney disease (Chronic) Dementia (Chronic) Meningioma (Chronic) Chronic diastolic heart failure (Chronic) Paroxysmal atrial fibrillation (Chronic) Diastolic CHF, acute (Chronic) Dyspnea on exertion (Chronic) Hyperparathyroidism (Chronic) Hypothyroidism (Chronic) Lymphomatoid papulosis (Chronic) Hypertension (Chronic) Obesity (Chronic) Right bundle branch block (Chronic) AV block, 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 Naina Llamas, DO) Hyperlipidemia (Chronic) E78.5 Obstructive sleep apnea (Chronic) G47.33 Carotid stenosis (Chronic) I65.29 Chronic kidney disease (Chronic) N18.9 Dementia (Chronic) F03.90 Meningioma (Chronic) D32.9 Chronic diastolic heart failure (Chronic) I50.32 Paroxysmal atrial fibrillation (Chronic) I48.0 Diastolic CHF, acute (Chronic) I50.31 Dyspnea on exertion (Chronic) R06.09 Hyperparathyroidism (Chronic) E21.3 Hypothyroidism (Chronic) E03.9 Lymphomatoid papulosis (Chronic) C86.6 Hypertension (Chronic) I10 Obesity (Chronic) E66.9 Right bundle branch block (Chronic) I45.10 AV block, 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) I44.0 GERD (gastroesophageal reflux disease) (Chronic) K21.9 Anxiety and depression (Chronic) F41.9, F32.9 Thoracic aortic aneurysm (Chronic) I71.2 3.9 cm History of CVA (cerebrovascular accident) (Chronic) Z86.73 Osteoarthritis M19.90 Allergies adhesive Allergy (Verified 03/21/20 18:39) Rash irbesartan Allergy (Verified 03/21/20 18:39) Unknown solifenacin [From Vesicare] Allergy (Verified 03/21/20 18:39) Unknown sulindac [Sulindac] Allergy (Verified 03/21/20 18:39) Unknown atorvastatin [From Lipitor] Adverse Reaction (Verified 03/21/20 18:39) Unknown lisinopril Adverse Reaction (Verified 03/21/20 18:39) Other COUGH losartan potassium [From Cozaar] Adverse Reaction (Verified 03/21/20 18:39) Other metoprolol Adverse Reaction (Verified 03/21/20 18:39) GI Upset ramipril [From Altace] Adverse Reaction (Verified 03/21/20 18:39) Other tramadol Adverse Reaction (Verified 03/21/20 18:39) Unknown Home Medications: Ambulatory Orders Medication Instructions Recorded Atorvastatin Calcium [Lipitor] 10 mg PO QHS 04/17/17 Fluticasone 0.05% [Flonase Nasal 1 spray NASAL DAILY 04/17/17 [place]] albuterol sulfate 90 mcg/actuation 2 puff INHALATION Q4H PRN g 09/27/17 aerosol inhaler levothyroxine 100 mcg tablet 100 mcg PO .COMPLEX 09/27/17 flecainide 50 mg tablet 50 mg PO Q12H #180 tab 09/10/19 atenolol 25 mg tablet 25 mg PO BID #180 tab 11/13/19 nystatin 100,000 unit/gram topical 1 applic TOPICAL .COMPLEX PRN 12/16/19 powder potassium chloride 20 mEq 20 meq PO BID #180 tab 02/03/20 tablet,extended release Colchicine 0.6 mg PO DAILY PRN 02/06/20 Sucralfate [Carafate] 1 gm PO 1HR_ACHS #120 tab 02/10/20 allopurinol 300 mg tablet 300 mg PO DAILY 03/03/20 furosemide 40 mg tablet 40 mg PO DAILY tab 03/03/20 Colchicine 0.6 mg PO DAILY 03/04/20 Pantoprazole Sodium 40 mg PO DAILY #30 tablet. 03/08/20 Acetaminophen [Tylenol Tablet] 650 mg PO Q6H PRN PRN tab 03/21/20 Apixaban [Eliquis] 2.5 mg PO BID tab 03/21/20 Ensure Enlive 120 ml PO 4X/DAY liquid 03/21/20 Mag Hydrox/Al Hydrox/Simeth 30 ml PO Q6H PRN PRN udc 03/21/20 [Mylanta II] Magnesium Hydroxide [Milk Of 30 ml PO DAILY PRN PRN [facility] 03/21/20 Magnesia] Surgical History: Surgical History (Last Reviewed 03/19/20 @ 14:[address] 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 History: - - Tubal ligation Lives: Spouse/ Significant Other Smoking Status: Never smoker Tobacco Use: Non-smoker Alcohol: None Drugs: None - *Family History Paternal Family History: Family History (Last Reviewed 03/08/20 @ 13:02 by Amie Gordillo) Father CVA (cerebral vascular accident) Mother CAD (coronary artery disease) Congestive heart failure History Items: Stroke, No pertinent history - No history of lung disease or autoimmune disease Maternal Family History: Family History (Last Reviewed 03/08/20 @ 13:02 by Amie Gordillo) Father CVA (cerebral vascular accident) Mother CAD (coronary artery disease) Congestive heart failure History Items: Stroke, No pertinent history - No history of lung disease autoimmune disease Review of Systems Constitutional: Reports: Weakness. Denies: Chills, Fever, Weight Change HEENT: Denies: Head Aches, Sinus Congestion, Sinus Drainage Cardiovascular: Denies: Chest Pain, Palpitations Respiratory: Reports: Shortness of Breath. Denies: Cough, Shortness of breath at rest, Sputum production Gastrointestinal: Denies: Abdominal Pain, Nausea, Vomiting Genitourinary: Denies: Dysuria Musculoskeletal: Denies: Joint Pain, Joint Tenderness Skin: Denies: Rash, Wounds Neurological: Denies: Numbness, Tingling, Focal weakness Psychiatric: Denies: Anxiety, Depression, Homicidal Ideations, Suicidal Ideations Hematologic/ Lymphatic: Denies: Easy Bruising, Easy Bleeding VTE Information - Inpt Only VTE Present on Admission: No VTE Mechan Device Prophylaxis: Knee High INDIRA Hose VTE Pharm Prophylaxis ordered?: No Reason prophylaxis not ordered:: Treatment Not Indicated Patient Problems: Active and Suspected Problems (Last Reviewed 03/19/20 @ 14:[address] Naina Llamas DO) Debility (Acute) Shortness of breath (Acute) - Physical Exam Vitals/I&O's: Weight: 76.793 kg Body Mass Index (BMI) 34.2 Finger Stick Blood Glucose 132 General: Alert, Oriented x3, Cooperative HEENT: Atraumatic, PERRLA, EOMI, Normocephalic Neck: Supple, No JVD, Negative Carotid Bruits Lungs: Clear to auscultation, Normal air movement Cardiovascular: Regular rate, No murmurs Abdomen: Bowel Sounds Present, Soft, Non Tender Extremities: No edema, Capillary Refill Less than 3 Seconds Skin: No rashes, No breakdown Musculoskeletal: No Tenderness to Palpation of Joints or Extremities Neurological: Cranial nerves II-XII grossly intact Psych/Mental Status: Normal Affect, Appropriate Current Medications Acetaminophen (Tylenol) 650 mg PO Q6H PRN PRN PRN Reason: Pain Score 1-10/Temp > 100.7 F Al Hydroxide/Mg Hydroxide (Mylanta Ii) 30 ml PO Q6H PRN PRN PRN Reason: Gastric Burning Albuterol Sulfate (Ventolin Hfa (Sp)) 2 puff INHALATION Q4H PRN PRN Reason: SOB &/OR WHEEZING Allopurinol (Zyloprim) 300 mg PO DAILY@0800 [place] Apixaban (Eliquis) 2.5 mg PO BID [facility] Atenolol (Tenormin (Beta Ivan)) 25 mg PO BID [facility] Atorvastatin Calcium (Lipitor) 10 mg PO QHS [place] Bisacodyl (Dulcolax) 10 mg RECTAL DAILY PRN PRN Reason: constipation Colchicine (Colchicine) 0.6 mg PO DAILY [facility] Flecainide Acetate (Tambocor) 50 mg PO Q12 [place] Fluticasone Propionate (Flonase Nasal [place]) 1 spray NASAL DAILY [facility] Furosemide (Lasix) 40 mg PO DAILY [facility] Levothyroxine Sodium (Synthroid) 100 mcg PO MoTuWeThFrSa@0600 [place] Magnesium Hydroxide (Milk Of Magnesia) 30 ml PO DAILY PRN PRN PRN Reason: Constipation Nutritional Formula (Lactose Free) (Ensure Enlive) 120 ml PO 4X/DAY [place] Nystatin (Mycostatin Powder) 1 applic TOPICAL BID PRN PRN; Protocol PRN Reason: IRRITATION Pantoprazole Sodium (Protonix) 40 mg PO DAILY [facility] Potassium Chloride (K-Dur) 20 meq PO BIDCM [facility] Sucralfate (Carafate) 1 gm PO 1HR_ACHS [place] Tuberculin PPD (Tubersol, Aplisol, Ppd) 5 tu ID X1 ONE Stop: 03/22/20 10:01 Tuberculin PPD (Tubersol, Aplisol, Ppd) 5 tu ID X1 ONE Stop: 03/29/20 10:01 Assessment/Plan All Active Problems (Last Reviewed 03/19/20 @ 14:[address] Naina Llamas, DO) Upper GI bleeding (Acute) Acute blood loss anemia (Acute) Atrial fibrillation with rapid ventricular response (Acute) Bilateral pulmonary embolism (Acute) Dyspnea (Acute) Back pain (Acute) Debility (Acute) Shortness of breath (Acute) Bradycardia (Acute) Confusion (Resolved) Esophageal stricture (Resolved) Expressive aphasia (Resolved) Hypoxia (Resolved) 80 year old female with below past medical history significant for recent upper gastrointestinal bleeding secondary to gastric ulcer, hospitalized for bilateral pulmonary embolism, admitted to TCU with debility, here for rehabilitation, strengthening, prior to discharge home with . * Debility - PT/OT. * Pain - Tylenol 1000MG Q6H PRN pain (1-10). * Bowel - Miralax 17GM daily, Senna/colace 1 tablet BID, Dulcolax 10MG NE daily PRN. * Adult immunization - Administer Prevnar 13, Pneumovax 23, Fluzone as appropriate. * DVT prophylaxis - Not necessary, already on Eliquis. * COPD - Ventolin MDI 2 puffs Q4H PRN. * Gout - Allopurinol 300MG daily, colchicine 0.6MG daily. * Pulmonary embolism - Eliquis 2.5MG BID. * Atrial Fibrillation - Atenolol 25MG BID, Flecainide 50MG Q12H, Eliquis 2.5MG BID. * Hyperlipidemia - Atorvastatin 10MG QHS. * Nutrition - Ensure Enlive 120ML 4x/day. * Chronic diastolic heart failure - Atenolol 25MG BID, Lasix 40MG daily. * Hypothyroidism - Levothyroxine 100MCG 6 days/week. * Indigestion - Mylanta II 30ML Q6H PRN. * Tinea Corporis - Nystatin powder BID PRN. * GERD - Pantoprazole 40MG daily. * Hypokalemia - K-Dur 20MEQ BID.
[2020-03-21] MEDS: Atorvastatin Calcium 10 MG Tablet PO (22:18)
[2020-03-22 04:00] VITALS: BP 113/72; PULSE 103; RESP 18; TEMP 36.6; O2SAT 95
[2020-03-22 05:36] LABS: Absolute Lymphocyte Count 1.01 X10^3/uL (0.83-4.51); Absolute Neutrophil Count 10.1 X10^3/uL (2.0-7.7); Basophil# 0.03 X10^3/uL; Basophil% 0.2 % (0-1); Eosinophil# 0.06 X10^3/uL; Eosinophils% 0.5 % (0-5); Hematocrit 33.5 % (37-47); Hemoglobin 10.5 g/dL (12.0-15.0); Lymphocyte # 1.01 X10^3/ul (4.0); Mean Corp Hgb Conc 31.3 g/dL (32-36); Mean Corpuscular Hgb 31.4 pg (27.0-32.0); Mean Corpuscular Volume 100.3 fL (81-99); Mean Platelet Vol. 11.4 fl (6.2-12.0); Monocyte# 1.41 X10^3/uL; Monocyte% 11.1 % (0-10); NRBC Flagged by Analyzer 0 % (0-5); Neutrophil # 10.06 X10^3/uL (2.7-7.7); Neutrophil % 79.5 % (47-70); Platelet Count 227 K/mm3 (150-450); RBC Distribution Width CV 13.9 % (11.6-14.6); RBC Distribution Width SD 50.2 fl (35.1-43.9); Red Blood Count 3.34 M/mm3 (4.2-5.4); White Blood Count 12.7 K/mm3 (4.4-11.0)
[2020-03-22] MEDS: APIXABAN 2.5 MG TABLET PO ×2 (06:10→18:10)
[2020-03-22] MEDS: Pantoprazole Sodium 40 MG Tablet PO (06:10)
[2020-03-22] MEDS: Levothyroxine 100 MCG Tablet PO (06:10)
[2020-03-22] MEDS: Furosemide 40 MG Tablet PO (06:11)
[2020-03-22] MEDS: Flecainide 100 MG Tablet 50 MG PO ×2 (06:11→18:09)
[2020-03-22] MEDS: Atenolol 25 MG Tablet PO ×2 (06:11→18:09)
[2020-03-22] MEDS: Senna/Docusate Sodium 1 Tablet PO ×2 (06:11→18:10)
[2020-03-22 06:23] LABS: Anion Gap 6 (5-15); BUN 33 mg/dL (7-18); BUN/Creat Ratio 25.8 RATIO (10-20); Chloride 101 mmol/L (98-107); Creatinine, Serum 1.28 mg/dL (0.55-1.02); EST Glomerular Filtration Rate 42 mL/min (>60); Est Glom Filt Rate - Afr Amer 51 mL/min (>60); Estimated Creatinine Clearance 41.08 ml/min; Glucose 107 mg/dL (74-106); Potassium 3.9 mmol/L (3.5-5.1); Sodium Level 138 mmol/L (136-145)
[2020-03-22] MEDS: Menthol/Lanolin/Calamine/Znox 113 GM Tube 1 APPLIC TOPICAL ×2 (06:24→21:12)
[2020-03-22] MEDS: Nystatin Powder 15gm Bottle 1 APPLIC TOPICAL ×2 (06:24→21:13)
[2020-03-22 08:33] VITALS: O2SAT 99
[2020-03-22] MEDS: Allopurinol 300 MG Tablet PO (09:22)
[2020-03-22] MEDS: Tuberculin,Purif.prot.deriv. 50 TU/ML Vial 5 ML ID (09:31)
--- NOTE | 2020-03-22 12:32 | CASEMGMT ---
Social Work Discussed code status with pt. Pt confirmed full code. MOLST form completed and placed in chart. Chelo Hill MSW [employer]
[2020-03-22 13:45] VITALS: O2SAT 95
[2020-03-22 15:28] VITALS: BP 104/64; PULSE 106; RESP 22; TEMP 36.7; O2SAT 96
[2020-03-22 20:03] VITALS: PULSE 118; RESP 16; O2SAT 96
[2020-03-22] MEDS: Atorvastatin Calcium 10 MG Tablet PO (21:11)
--- NOTE | 2020-03-22 22:41 | NURSING ---
Addendum entered by Ana Lamb 03/22/20 22:48: Message left with social media editor. Original Note: Pt son in-law, Charli requesting update on pt. Charli stating pt called him stating she was not getting Protonix and staff was not helping her. Charli stating I know she gets very confused and this happened on the other side. Explained to him that pt was receiving medication in the AM. Updated on labs and vital signs. He began to ask questions about discharge and this nurse explained the social media editor would be able to go over all of that. Meli requesting his number be given to social media editor so she can contact him. He thanked this nurse several times for staff taking care of patient.
[2020-03-23] MEDS: Pantoprazole Sodium 40 MG Tablet PO (06:20)
[2020-03-23] MEDS: APIXABAN 2.5 MG TABLET PO ×2 (06:20→18:55)
[2020-03-23] MEDS: Levothyroxine 100 MCG Tablet PO (06:20)
[2020-03-23] MEDS: Furosemide 40 MG Tablet PO (06:21)
[2020-03-23] MEDS: Flecainide 100 MG Tablet 50 MG PO ×2 (06:22→18:55)
[2020-03-23] MEDS: Atenolol 25 MG Tablet PO ×2 (06:23→18:56)
[2020-03-23] MEDS: Menthol/Lanolin/Calamine/Znox 113 GM Tube 1 APPLIC TOPICAL ×2 (06:25→21:53)
[2020-03-23] MEDS: Nystatin Powder 15gm Bottle 1 APPLIC TOPICAL ×2 (06:25→21:56)
[2020-03-23 06:43] VITALS: BP 112/74; PULSE 114; RESP 20; TEMP 36.1; O2SAT 96
[2020-03-23 07:25] VITALS: O2SAT 96
[2020-03-23] MEDS: Allopurinol 300 MG Tablet PO (07:50)
[2020-03-23 10:00] VITALS: RESP 18; O2SAT 96
[2020-03-23 14:45] VITALS: BP 107/53; PULSE 102; RESP 18; TEMP 36.3; O2SAT 97
--- NOTE | 2020-03-23 14:47 | CASEMGMT ---
Social Work Spoke with pt's PHIL Augustin, answered questions about discharge plans and home environment. PHIL explained dynamics between pt and have not been good for awhile, prior to Alzheimer's and neither are going to change. Pt is receiving SW assistance through [facility] and [facility] prior. SW made SISSY and Passport referral prior to admission for additional assistance in the home. Discussed AL or SNF options. PHIL stated pt is adamant about not being in a SNF. Emailed all lists to [facility] for resources regardless. Scheduled care plan meeting for 03/30 at 9 am. Explained [employer] insurance. PHIL very appreciative of assistance. Will continue to follow. Chelo Hill, BUSINESS OFFICE REPRESENTATIVE CAPSULE F[employer]ER
--- NOTE | 2020-03-23 15:24 | PHA.CONS_ITS ---
<Anthony Sheetsi - Last Filed: 03/23/20 15:24> Progress Note - Pharmacy Subjective: TCU Admission Objective: Allergies adhesive Allergy (Verified 03/21/20 18:39) Rash irbesartan Allergy (Verified 03/21/20 18:39) Unknown solifenacin [From Vesicare] Allergy (Verified 03/21/20 18:39) Unknown sulindac [Sulindac] Allergy (Verified 03/21/20 18:39) Unknown atorvastatin [From Lipitor] Adverse Reaction (Verified 03/21/20 18:39) Unknown lisinopril Adverse Reaction (Verified 03/21/20 18:39) Other COUGH losartan potassium [From Cozaar] Adverse Reaction (Verified 03/21/20 18:39) Other metoprolol Adverse Reaction (Verified 03/21/20 18:39) GI Upset ramipril [From Altace] Adverse Reaction (Verified 03/21/20 18:39) Other tramadol Adverse Reaction (Verified 03/21/20 18:39) Unknown Current Medications Generic Name Dose Route Start Last Admin Trade Name Freq PRN Reason Stop Dose Admin Acetaminophen 1,000 mg 03/21/20 20:05 Tylenol PO Q6H PRN PRN Pain Score 1-10/10 Al Hydroxide/Mg Hydroxide 30 ml 03/21/20 18:21 Mylanta Ii PO Q6H PRN PRN Gastric Burning Albuterol Sulfate 2 puff 03/21/20 18:21 Ventolin Hfa (Sp) INHALATION Q4H PRN SOB &/OR WHEEZING Allopurinol 300 mg 03/22/20 08:00 03/23/20 07:50 Zyloprim PO 300 mg DAILY@0800 [facility]INO Administration Apixaban 2.5 mg 03/22/20 06:00 03/23/20 06:20 Eliquis PO 2.5 mg BID CHALINO Administration Atenolol 25 mg 03/22/20 06:00 03/23/20 06:23 Tenormin (Beta Ivan) PO 25 mg BID CHALINO Administration Atorvastatin Calcium 10 mg 03/21/20 22:00 03/22/20 21:11 Lipitor PO 10 mg QHS CHALINO Administration Bisacodyl 10 mg 03/21/20 17:41 Dulcolax RECTAL DAILY PRN constipation Calamine/Phenol 1 applic 03/22/20 06:00 03/23/20 06:25 Calmoseptine Ointment TOPICAL 1 applicatio 0600,2200 CHALINO Administration Protocol Colchicine 0.6 mg 03/22/20 06:00 03/23/20 06:20 Colchicine PO 0.6 mg DAILY CHALINO Administration Flecainide Acetate 50 mg 03/22/20 06:00 03/23/20 06:22 Tambocor PO 50 mg Q12 CHALINO Administration Furosemide 40 mg 03/22/20 06:00 03/23/20 06:21 Lasix PO 40 mg DAILY CHALINO Administration Levothyroxine Sodium 100 mcg 03/22/20 06:00 03/23/20 06:20 Synthroid PO 100 mcg MoTuWeThFrSa@0600 CHALINO Administration Multi-Ingredient Cream 1 applic 03/22/20 22:00 03/22/20 21:12 Eucerin TOPICAL 1 applicatio DAILY@0 CHALINO Administration Protocol Nutritional Formula (Lactose Free) 120 ml 03/21/20 22:00 03/23/20 11:36 Ensure Enlive PO 120 ml 4X/DAY CHALINO Administration Nystatin 1 applic 03/22/20 06:00 03/23/20 06:25 Mycostatin Powder TOPICAL 1 applicatio 00,2200 [facility] Administration Protocol Pantoprazole Sodium 40 mg 03/22/20 06:00 03/23/20 06:20 Protonix PO 40 mg DAILY CHALINO Administration Polyethylene Glycol 17 gm 03/22/20 06:00 03/23/20 06:22 Miralax PO Not Given DAILY [facility]INO Potassium Chloride 20 meq 03/22/20 08:00 03/23/20 07:50 K-Dur PO 20 meq BIDCM CA[facility]INO Administration Senna/Docusate Sodium 1 tablet 03/22/20 06:00 03/23/20 06:20 Senokot-S, Neha-Colace PO Not Given BID [facility] Tuberculin PPD 5 tu 03/29/20 10:00 Tubersol, Aplisol, Ppd ID 03/29/20 10:01 X1 ONE Problem List (Last Reviewed 03/19/20 @ 14:[address] Naina Llamas DO) Debility (Acute) Shortness of breath (Acute) Gastric ulcer (Chronic) Stroke (Chronic) DVT (deep venous thrombosis) (Chronic) Atrial fibrillation (Chronic) Thoracic aortic aneurysm (Chronic) Chronic diastolic (congestive) heart failure (Chronic) COPD (chronic obstructive pulmonary disease) (Chronic) Gout (Chronic) Allergic rhinitis (Chronic) Hypokalemia (Chronic) Vital Signs Temp Pulse Resp BP Pulse Ox 97.3 F L 102 H 18 107/53 L 97 03/23/20 14:45 03/23/20 14:45 03/23/20 14:45 03/23/20 14:45 03/23/20 14:45 Oxygen Flow Rate (L/min) 2 Oxygen Delivery Method Nasal Cannula Weight: 74.984 kg Body Mass Index (BMI) 34.2 Finger Stick Blood Glucose 132 Sodium 138 mmol/L (136-145) 03/22/20 05:10 Potassium 3.9 mmol/L (3.5-5.1) 03/22/20 05:10 Chloride 101 mmol/L (98-107) 03/22/20 05:10 Carbon Dioxide 31.0 mmol/L (21.0-32.0) 03/22/20 05:10 Anion Gap 6 (5-15) 03/22/20 05:10 BUN 33 mg/dL (7-18) H 03/22/20 05:10 Creatinine 1.28 mg/dL (0.55-1.02) H 03/22/20 05:10 Est GFR (MDRD) Af Amer 51 mL/min (>60) L 03/22/20 05:10 Est GFR (MDRD) Non-Af 42 mL/min (>60) L 03/22/20 05:10 BUN/Creatinine Ratio 25.8 RATIO (10-20) H 03/22/20 05:10 Glucose 107 mg/dL (74-106) H 03/22/20 05:10 Assessment/Plan: 1. Pain: acetaminophen 1000MG PO Q6H PRN pain (-06/18). Please continue to monitor for S/S of inadequate pain control and use of PRN medication. 2. COPD: Ventolin MDI 2 puffs Q4H PRN SOB &/OR WHEEZING. Please continue to monitor for SOB and use of PRN medication. 3. Atrial Fibrillation/CHF/PE: Atenolol 25MG BID, Flecainide 50MG Q12H, Eliquis 2.5MG BID, furosemide 40mg PO daily. Please continue to monitor for S/S of bleeding/DVT/stroke, inadequate control of heart rate or rhythm, BP, renal function, and electrolytes. 4. Gout - Allopurinol 300MG PO daily, colchicine 0.6MG PO daily. Please continue to monitor for S/S of acute gout and renal function. 5. Hyperlipidemia: Atorvastatin 10MG QHS. Please continue to monitor lipid panel, LFT's, joint pain, and general pain. Patient had recent lipid panel and LFTs. 6. Hypokalemia: K-Dur 20MEQ PO BID. Please continue to monitor potassium levels. Last level 3.9 mmol/L. 7. GERD: Pantoprazole 40MG PO daily. Please continue to monitor. 8. Hypothyroidism: Levothyroxine 100MCG PO 6 days/week. Please continue to monitor TSH levels. 9. Indigestion: Mylanta II 30ML PO Q6H PRN. Please continue to monitor use of PRN medication. Psychotropic Medications: None Unnecessary Medications: None Bowel Regimen: Miralax 17GM PO daily, Senna/colace 1 tablet PO BID, Dulcolax 10MG NC daily PRN constipation. Please continue to monitor for diarrhea/constipation and use of PRN medication. Date of Note:: 03/23/20 - Provider Comments Provider responsibility: Provider responsible to enter orders to implement recommendations <Denny Romano Chi - Last Filed: 03/23/20 17:44> Progress Note - Pharmacy Subjective: [] Objective: Allergies adhesive Allergy (Verified 03/21/20 18:39) Rash irbesartan Allergy (Verified 03/21/20 18:39) Unknown solifenacin [From Vesicare] Allergy (Verified 03/21/20 18:39) Unknown sulindac [Sulindac] Allergy (Verified 03/21/20 18:39) Unknown atorvastatin [From Lipitor] Adverse Reaction (Verified 03/21/20 18:39) Unknown lisinopril Adverse Reaction (Verified 03/21/20 18:39) Other COUGH losartan potassium [From Cozaar] Adverse Reaction (Verified 03/21/20 18:39) Other metoprolol Adverse Reaction (Verified 03/21/20 18:39) GI Upset ramipril [From Altace] Adverse Reaction (Verified 03/21/20 18:39) Other tramadol Adverse Reaction (Verified 03/21/20 18:39) Unknown Current Medications Generic Name Dose Route Start Last Admin Trade Name Freq PRN Reason Stop Dose Admin Acetaminophen 1,000 mg 03/21/20 20:05 Tylenol PO Q6H PRN PRN Pain Score 1-10/10 Al Hydroxide/Mg Hydroxide 30 ml 03/21/20 18:21 Mylanta Ii PO Q6H PRN PRN Gastric Burning Albuterol Sulfate 2 puff 03/21/20 18:21 Ventolin Hfa (Sp) INHALATION Q4H PRN SOB &/OR WHEEZING Allopurinol 300 mg 03/22/20 08:00 03/23/20 07:50 Zyloprim PO 300 mg DAILY@0800 [facility]ALINO Administration Apixaban 2.5 mg 03/22/20 06:00 03/23/20 06:20 Eliquis PO 2.5 mg BID CHALINO Administration Atenolol 25 mg 03/22/20 06:00 03/23/20 06:23 Tenormin (Beta Ivan) PO 25 mg BID CHALINO Administration Atorvastatin Calcium 10 mg 03/21/20 22:00 03/22/20 21:11 Lipitor PO 10 mg QHS CHALINO Administration Bisacodyl 10 mg 03/21/20 17:41 Dulcolax RECTAL DAILY PRN constipation Calamine/Phenol 1 applic 03/22/20 06:00 03/23/20 06:25 Calmoseptine Ointment TOPICAL 1 applicatio 599,2199 [facility] Administration Protocol Colchicine 0.6 mg 03/22/20 06:00 03/23/20 06:20 Colchicine PO 0.6 mg DAILY CHALINO Administration Flecainide Acetate 50 mg 03/22/20 06:00 03/23/20 06:22 Tambocor PO 50 mg Q12 CHALINO Administration Furosemide 40 mg 03/22/20 06:00 03/23/20 06:21 Lasix PO 40 mg DAILY [facility] Administration Levothyroxine Sodium 100 mcg 03/22/20 06:00 03/23/20 06:20 Synthroid PO 100 mcg MoTuWeThFrSa@0600 CHALINO Administration Multi-Ingredient Cream 1 applic 03/22/20 22:00 03/22/20 21:12 Eucerin TOPICAL 1 applicatio DAILY@2200 [facility] Administration Protocol Nutritional Formula (Lactose Free) 120 ml 03/21/20 22:00 03/23/20 11:36 Ensure Enlive PO 120 ml 4X/DAY [facility]ALINO Administration Nystatin 1 applic 03/22/20 06:00 03/23/20 06:25 Mycostatin Powder TOPICAL 1 applicatio 0600,2200 [facility] Administration Protocol Pantoprazole Sodium 40 mg 03/22/20 06:00 03/23/20 06:20 Protonix PO 40 mg DAILY CHALINO Administration Polyethylene Glycol 17 gm 03/22/20 06:00 03/23/20 06:22 Miralax PO Not Given DAILY [facility]INO Potassium Chloride 20 meq 03/22/20 08:00 03/23/20 07:50 K-Dur PO 20 meq BIDCM CHALINO Administration Senna/Docusate Sodium 1 tablet 03/22/20 06:00 03/23/20 06:20 Senokot-S, Neha-Colace PO Not Given BID [facility] Tuberculin PPD 5 tu 03/29/20 10:00 Tubersol, Aplisol, Ppd ID 03/29/20 10:01 X1 ONE Problem List (Last Reviewed 03/19/20 @ 14:[address] Naina Llamas, DO) Debility (Acute) Shortness of breath (Acute) Gastric ulcer (Chronic) Stroke (Chronic) DVT (deep venous thrombosis) (Chronic) Atrial fibrillation (Chronic) Thoracic aortic aneurysm (Chronic) Chronic diastolic (congestive) heart failure (Chronic) COPD (chronic obstructive pulmonary disease) (Chronic) Gout (Chronic) Allergic rhinitis (Chronic) Hypokalemia (Chronic) Vital Signs Temp Pulse Resp BP Pulse Ox 97.3 F L 102 H 18 107/53 L 97 03/23/20 14:45 03/23/20 14:45 03/23/20 14:45 03/23/20 14:45 03/23/20 14:45 Oxygen Flow Rate (L/min) 2 Oxygen Delivery Method Nasal Cannula Weight: 74.984 kg Body Mass Index (BMI) 34.2 Finger Stick Blood Glucose 132 Sodium 138 mmol/L (136-145) 03/22/20 05:10 Potassium 3.9 mmol/L (3.5-5.1) 03/22/20 05:10 Chloride 101 mmol/L (98-107) 03/22/20 05:10 Carbon Dioxide 31.0 mmol/L (21.0-32.0) 03/22/20 05:10 Anion Gap 6 (5-15) 03/22/20 05:10 BUN 33 mg/dL (7-18) H 03/22/20 05:10 Creatinine 1.28 mg/dL (0.55-1.02) H 03/22/20 05:10 Est GFR (MDRD) Af Amer 51 mL/min (>60) L 03/22/20 05:10 Est GFR (MDRD) Non-Af 42 mL/min (>60) L 03/22/20 05:10 BUN/Creatinine Ratio 25.8 RATIO (10-20) H 03/22/20 05:10 Glucose 107 mg/dL (74-106) H 03/22/20 05:10 Assessment/Plan: Psychotropic Medications: Unnecessary Medications: Bowel Regimen: - Provider Comments Provider responsibility: Provider responsible to enter orders to implement r ecommendations Provider Comments to Recommendations by Pharmacy: Agree
[2020-03-23] MEDS: Atorvastatin Calcium 10 MG Tablet PO (21:50)
--- NOTE | 2020-03-23 21:53 | NURSING ---
Patient upset when this Nurse went into patient's room to administer HS meds. Patient pointing finger and yelling, you better not be giving me any of that stool softener. You and your Doctor are trying to kill me with that. Advised patient that She was not getting any at this time. Patient then said, Well the Nurse this morning gave it to me and I was sick to my stomach all day. Explained to patient that I was her Nurse this morning and I did not administer medication. Also let her know that according to the MAR it was not given at 17:00 hours either. Patient continued to be upset. I advised her that I would make sure not to give her any stool softeners in the morning. I told patient I would print a Medication List off for patient. Patient happy with that. Medication list was printed and given to patient. Patient satisfied at this time.
[2020-03-24] MEDS: Flecainide 100 MG Tablet 50 MG PO ×2 (05:55→17:56)
[2020-03-24] MEDS: Levothyroxine 100 MCG Tablet PO (05:57)
[2020-03-24] MEDS: APIXABAN 2.5 MG TABLET PO ×2 (05:57→17:55)
[2020-03-24] MEDS: Pantoprazole Sodium 40 MG Tablet PO (05:57)
[2020-03-24] MEDS: Atenolol 25 MG Tablet PO ×2 (05:57→17:56)
[2020-03-24] MEDS: Furosemide 40 MG Tablet PO (05:57)
[2020-03-24] MEDS: Menthol/Lanolin/Calamine/Znox 113 GM Tube 1 APPLIC TOPICAL ×2 (05:58→20:28)
[2020-03-24] MEDS: Nystatin Powder 15gm Bottle 1 APPLIC TOPICAL ×2 (05:58→20:28)
[2020-03-24 05:59] VITALS: BP 139/73; PULSE 101; RESP 18; TEMP 36.2; O2SAT 99
[2020-03-24] MEDS: Allopurinol 300 MG Tablet PO (07:45)
[2020-03-24 11:12] VITALS: O2SAT 99
--- NOTE | 2020-03-24 14:17 | NURSING ---
pt requesting lasix be changed to every other day instead of everyday, RN aware
[2020-03-24 15:13] VITALS: BP 115/81; PULSE 120; RESP 16; TEMP 36.3; O2SAT 97
[2020-03-24] MEDS: Atorvastatin Calcium 10 MG Tablet PO (20:29)
[2020-03-25 04:00] VITALS: BP 110/75; PULSE 104; RESP 12; TEMP 36.7; O2SAT 96
[2020-03-25] MEDS: Menthol/Lanolin/Calamine/Znox 113 GM Tube 1 APPLIC TOPICAL ×2 (06:04→21:25)
[2020-03-25] MEDS: Pantoprazole Sodium 40 MG Tablet PO (06:05)
[2020-03-25] MEDS: APIXABAN 2.5 MG TABLET PO ×2 (06:05→17:28)
[2020-03-25] MEDS: Levothyroxine 100 MCG Tablet PO (06:05)
[2020-03-25] MEDS: Flecainide 100 MG Tablet 50 MG PO ×2 (06:05→17:30)
[2020-03-25] MEDS: Atenolol 25 MG Tablet PO ×2 (06:06→17:30)
[2020-03-25] MEDS: Nystatin Powder 15gm Bottle 1 APPLIC TOPICAL ×2 (06:06→21:25)
[2020-03-25] MEDS: Allopurinol 300 MG Tablet PO (08:17)
[2020-03-25 09:21] VITALS: PULSE 95; RESP 16; O2SAT 98
[2020-03-25 14:16] VITALS: BP 110/61; PULSE 94; RESP 16; TEMP 35.8; O2SAT 96
--- NOTE | 2020-03-25 16:14 | RAD_ITS ---
STUDY: X-RAY CHEST REASON FOR EXAM: Female, 80 years old. crackles to b/l lower lobes TECHNIQUE: Frontal and lateral views of the chest. COMPARISON: 03/19/2020. FINDINGS: Elevated right hemidiaphragm, stable. Atelectasis or less likely infiltrate in the right lung base. No gross abnormalities of the left lung. Cannot exclude trace right pleural effusion. There is mild cardiac enlargement. Normal mediastinum and awais. Normal visualized pulmonary arteries. Normal visualized aortic arch and descending thoracic aorta. There are diffuse degenerative changes of the visualized thoracic spine. [id number] dextroconvex scoliosis. Normal visualized ribs, clavicles, and shoulders. There is no demonstrated abnormality of the visualized soft tissue structures of the upper abdomen. RAD/Chest PA and Lateral IMPRESSION: Atelectasis or less likely infiltrate in the right lung base. Electronically Signed: Cayden Thornton MD at 16:37 EDT , Service support ,
[2020-03-25] MEDS: PARoxetine 10 MG Tablet PO (21:21)
[2020-03-25] MEDS: Atorvastatin Calcium 10 MG Tablet PO (21:23)
[2020-03-26 05:45] VITALS: BP 115/81; PULSE 113; RESP 18; TEMP 36.5; O2SAT 96
[2020-03-26] MEDS: Atenolol 25 MG Tablet PO ×2 (05:48→17:12)
[2020-03-26] MEDS: Flecainide 100 MG Tablet 50 MG PO ×2 (05:48→17:12)
[2020-03-26] MEDS: Pantoprazole Sodium 40 MG Tablet PO (05:48)
[2020-03-26] MEDS: Levothyroxine 100 MCG Tablet PO (05:48)
[2020-03-26] MEDS: APIXABAN 2.5 MG TABLET PO ×2 (05:49→17:12)
[2020-03-26] MEDS: Menthol/Lanolin/Calamine/Znox 113 GM Tube 1 APPLIC TOPICAL ×2 (05:52→20:41)
[2020-03-26] MEDS: Nystatin Powder 15gm Bottle 1 APPLIC TOPICAL ×2 (05:52→20:40)
[2020-03-26] MEDS: Allopurinol 300 MG Tablet PO (08:06)
[2020-03-26] MEDS: Furosemide 40 MG Tablet PO (10:30)
[2020-03-26 14:15] VITALS: BP 112/75; PULSE 102; RESP 20; TEMP 35.9; O2SAT 92
[2020-03-26 15:25] VITALS: O2SAT 92
[2020-03-26 16:18] VITALS: RESP 22; O2SAT 94
[2020-03-26] MEDS: Atorvastatin Calcium 10 MG Tablet PO (20:37)
[2020-03-26] MEDS: PARoxetine 10 MG Tablet PO (20:38)
[2020-03-27 00:51] VITALS: PULSE 119; RESP 18; O2SAT 97
[2020-03-27] MEDS: APIXABAN 2.5 MG TABLET PO ×2 (04:52→17:55)
[2020-03-27] MEDS: Levothyroxine 100 MCG Tablet PO (04:52)
[2020-03-27] MEDS: Flecainide 100 MG Tablet 50 MG PO ×2 (04:52→17:55)
[2020-03-27] MEDS: Pantoprazole Sodium 40 MG Tablet PO (04:53)
[2020-03-27] MEDS: Atenolol 25 MG Tablet PO ×2 (04:53→17:56)
[2020-03-27] MEDS: Nystatin Powder 15gm Bottle 1 APPLIC TOPICAL ×2 (05:01→20:34)
[2020-03-27] MEDS: Menthol/Lanolin/Calamine/Znox 113 GM Tube 1 APPLIC TOPICAL ×2 (05:01→20:33)
[2020-03-27 05:03] VITALS: BP 123/71; PULSE 106; RESP 18; TEMP 36.3; O2SAT 96
[2020-03-27 07:00] VITALS: O2SAT 95
[2020-03-27] MEDS: Allopurinol 300 MG Tablet PO (07:55)
[2020-03-27 10:00] VITALS: PULSE 83; RESP 18; O2SAT 98
[2020-03-27 14:27] VITALS: BP 135/78; PULSE 112; RESP 18; TEMP 36; O2SAT 98
[2020-03-27] MEDS: PARoxetine 10 MG Tablet PO (20:36)
[2020-03-27] MEDS: Atorvastatin Calcium 10 MG Tablet PO (20:37)
--- NOTE | 2020-03-27 22:52 | PCA ---
While washing up resident for bed KILN TESTER went to remove matthias wraps and patient kept repeating loudly my socks, my socks, take off my socks. KILN TESTER told patient that was what they were doing and to be patient. Patient was visibly upset and started to tear up, responding with I was having a great day until now and you ruined it This KILN TESTER finished removing the matthias wraps, and asked if there was anything else they needed. Patient said no and thanked KILN TESTER for helping them into bed. call light within reach.
[2020-03-28 04:00] VITALS: BP 109/74; PULSE 108; RESP 12; TEMP 36.6; O2SAT 95
[2020-03-28] MEDS: Nystatin Powder 15gm Bottle 1 APPLIC TOPICAL ×2 (05:44→22:05)
[2020-03-28] MEDS: Menthol/Lanolin/Calamine/Znox 113 GM Tube 1 APPLIC TOPICAL ×2 (05:44→22:07)
[2020-03-28] MEDS: Flecainide 100 MG Tablet 50 MG PO ×2 (05:45→17:22)
[2020-03-28] MEDS: APIXABAN 2.5 MG TABLET PO ×2 (05:45→17:22)
[2020-03-28] MEDS: Pantoprazole Sodium 40 MG Tablet PO (05:45)
[2020-03-28] MEDS: Atenolol 25 MG Tablet PO ×2 (05:46→17:22)
[2020-03-28 07:20] VITALS: O2SAT 99
[2020-03-28] MEDS: Allopurinol 300 MG Tablet PO (08:56)
[2020-03-28] MEDS: Furosemide 40 MG Tablet PO (09:01)
[2020-03-28 12:52] VITALS: BP 118/61; PULSE 98; RESP 18; TEMP 36.3; O2SAT 99
[2020-03-28] MEDS: PARoxetine 10 MG Tablet PO (22:03)
[2020-03-28] MEDS: Atorvastatin Calcium 10 MG Tablet PO (22:03)
[2020-03-28 22:17] VITALS: PULSE 112; RESP 18; O2SAT 97
[2020-03-29 05:20] VITALS: BP 115/69; PULSE 112; RESP 18; TEMP 37; O2SAT 98
[2020-03-29] MEDS: Pantoprazole Sodium 40 MG Tablet PO (05:29)
[2020-03-29] MEDS: Levothyroxine 100 MCG Tablet PO (05:29)
[2020-03-29] MEDS: Atenolol 25 MG Tablet PO ×2 (05:29→17:28)
[2020-03-29] MEDS: APIXABAN 2.5 MG TABLET PO ×2 (05:29→17:28)
[2020-03-29] MEDS: Flecainide 100 MG Tablet 50 MG PO ×2 (05:29→17:29)
[2020-03-29] MEDS: Nystatin Powder 15gm Bottle 1 APPLIC TOPICAL ×2 (05:33→21:55)
[2020-03-29] MEDS: Menthol/Lanolin/Calamine/Znox 113 GM Tube 1 APPLIC TOPICAL ×2 (05:33→21:55)
[2020-03-29 05:39] LABS: Absolute Lymphocyte Count 1.28 X10^3/uL (0.83-4.51); Basophil# 0.03 X10^3/uL; Basophil% 0.4 % (0-1); Eosinophils% 1.4 % (0-5); Hematocrit 35.8 % (37-47); Lymphocyte # 1.28 X10^3/ul (4.0); Lymphocyte % 18.1 % (19-41); Mean Corp Hgb Conc 30.7 g/dL (32-36); Mean Corpuscular Hgb 30.9 pg (27.0-32.0); Mean Corpuscular Volume 100.6 fL (81-99); Mean Platelet Vol. 11.4 fl (6.2-12.0); Monocyte# 0.65 X10^3/uL; Monocyte% 9.2 % (0-10); NRBC Flagged by Analyzer 0 % (0-5); Neutrophil # 4.99 X10^3/uL (2.7-7.7); Neutrophil % 70.5 % (47-70); Platelet Count 286 K/mm3 (150-450); RBC Distribution Width CV 13.6 % (11.6-14.6); Red Blood Count 3.56 M/mm3 (4.2-5.4); White Blood Count 7.1 K/mm3 (4.4-11.0)
[2020-03-29 06:03] LABS: Anion Gap 4 (5-15); BUN 28 mg/dL (7-18); BUN/Creat Ratio 19.7 RATIO (10-20); Chloride 103 mmol/L (98-107); Creatinine, Serum 1.42 mg/dL (0.55-1.02); EST Glomerular Filtration Rate 38 mL/min (>60); Est Glom Filt Rate - Afr Amer 46 mL/min (>60); Estimated Creatinine Clearance 36.16 ml/min; Glucose 92 mg/dL (74-106); Potassium 4.3 mmol/L (3.5-5.1); Sodium Level 138 mmol/L (136-145)
[2020-03-29 06:32] VITALS: O2SAT 98
[2020-03-29] MEDS: Allopurinol 300 MG Tablet PO (08:50)
[2020-03-29 10:15] VITALS: PULSE 85; RESP 18; O2SAT 98
[2020-03-29] MEDS: Tuberculin,Purif.prot.deriv. 50 TU/ML Vial 5 ML ID (10:50)
[2020-03-29 13:48] VITALS: BP 111/73; PULSE 105; RESP 17; TEMP 36.3; O2SAT 98
--- NOTE | 2020-03-29 16:53 | NURSING ---
Nothing new to update to family.
[2020-03-29] MEDS: Atorvastatin Calcium 10 MG Tablet PO (21:36)
[2020-03-29] MEDS: PARoxetine 10 MG Tablet PO (21:38)
[2020-03-30 04:00] VITALS: BP 120/73; PULSE 106; RESP 18; TEMP 36.9; O2SAT 98
[2020-03-30] MEDS: APIXABAN 2.5 MG TABLET PO ×2 (06:17)
[2020-03-30] MEDS: Pantoprazole Sodium 40 MG Tablet PO (06:17)
[2020-03-30] MEDS: Levothyroxine 100 MCG Tablet PO (06:17)
[2020-03-30] MEDS: Flecainide 100 MG Tablet 50 MG PO ×2 (06:19→17:29)
[2020-03-30] MEDS: Atenolol 25 MG Tablet PO ×2 (06:30→17:29)
[2020-03-30] MEDS: Nystatin Powder 15gm Bottle 1 APPLIC TOPICAL ×2 (06:32→21:20)
[2020-03-30] MEDS: Menthol/Lanolin/Calamine/Znox 113 GM Tube 1 APPLIC TOPICAL ×2 (06:33→21:20)
[2020-03-30 07:09] VITALS: O2SAT 92
[2020-03-30] MEDS: Allopurinol 300 MG Tablet PO (07:49)
[2020-03-30] MEDS: Furosemide 20 MG Tablet PO (07:52)
--- NOTE | 2020-03-30 09:49 | CASEMGMT ---
Social Work IDT met with patient, PHIL and dtr via conference call for care plan meeting. Discussed patient's progress in therapy. Pt is SBA for bed mobility and transfers with FWW, ambulating 50 ft SBA for FWW, using 2.5# wts for seated LE exercises. Pt is set up for grooming and UE ADLs while seated, Conner for LE ADLs, SBA -min for toileting managing depends, but pt does not wear depends at home. Pt is on regular, low sodium diet, stopped Ensure Enlive, appetite improved. Pt is out of room isolation 04/04, medical;ly stable. Explained [employer] insurance with [employer]D 04/06,approved 04/09 and continued stay is not guaranteed. Discussed Palliative Medicine. Pt and family agreeable for referral. Pt requesting to DC home - IDT agreeable to [place] 04/01. Family to purchase shower chair. Referral made to Palliative, [facility] For PT/OT/SN/SW, CCN. Plan: DC home 04/01 with above services [place], [place]OW
--- NOTE | 2020-03-30 09:53 | NURSING ---
Plan of care meeting today. family updated then.
--- NOTE | 2020-03-30 11:12 | CCN.REFER ---
Referral received. Patient is currently active with CCN, and CCN visits will resume when patient is discharged.
[2020-03-30 14:23] VITALS: BP 113/72; PULSE 102; RESP 16; TEMP 36.5; O2SAT 97
--- NOTE | 2020-03-30 18:28 | PCM.DC ---
- Discharge Diagnoses Current Active Problems: Current Active and Chronic Problems (Last Reviewed 03/19/20 @ 14:[address] Naina Llamas, DO) Debility (Acute) Shortness of breath (Acute) Gastric ulcer (Chronic) Stroke (Chronic) DVT (deep venous thrombosis) (Chronic) Atrial fibrillation (Chronic) Thoracic aortic aneurysm (Chronic) Chronic diastolic (congestive) heart failure (Chronic) COPD (chronic obstructive pulmonary disease) (Chronic) Gout (Chronic) Allergic rhinitis (Chronic) Hypokalemia (Chronic) You will use the following diet at home:: No restrictions, Regular Your food should be the consistency of: Regular Your liquids should be the consistency of: Regular/Thin Discharge Activity: Return to Normal Activity, May Shower, Use Walker Weight Bearing Status: Weight bearing as tolerated Call your doctor if you observe: Fever of 101 or Higher, Inability to urinate, Inability to have a bowel movement, Shortness of breath, Chest pain, Uncontrolled pain Allergies/Adverse Reactions: Allergies adhesive Allergy (Verified 03/21/20 18:39) Rash irbesartan Allergy (Verified 03/21/20 18:39) Unknown solifenacin [From Vesicare] Allergy (Verified 03/21/20 18:39) Unknown sulindac [Sulindac] Allergy (Verified 03/21/20 18:39) Unknown atorvastatin [From Lipitor] Adverse Reaction (Verified 03/21/20 18:39) Unknown lisinopril Adverse Reaction (Verified 03/21/20 18:39) Other COUGH losartan potassium [From Cozaar] Adverse Reaction (Verified 03/21/20 18:39) Other metoprolol Adverse Reaction (Verified 03/21/20 18:39) GI Upset ramipril [From Altace] Adverse Reaction (Verified 03/21/20 18:39) Other tramadol Adverse Reaction (Verified 03/21/20 18:39) Unknown Medications to take at Discharge Atorvastatin Calcium [Lipitor] 10 mg PO QHS 04/17/17 albuterol sulfate 90 mcg/actuation aerosol inhaler 2 puff INHALATION Q4H PRN g 09/27/17 levothyroxine 100 mcg tablet 100 mcg PO .COMPLEX 09/27/17 flecainide 50 mg tablet 50 mg PO Q12H #180 tab 09/10/19 atenolol 25 mg tablet 25 mg PO BID #180 tab 11/13/19 nystatin 100,000 unit/gram topical powder 1 applic TOPICAL .COMPLEX PRN 12/16/19 Colchicine 0.6 mg PO DAILY PRN 02/06/20 allopurinol 300 mg tablet 300 mg PO DAILY 03/03/20 furosemide 40 mg tablet 40 mg PO DAILY tab 03/03/20 Colchicine 0.6 mg PO DAILY 03/04/20 Pantoprazole Sodium 40 mg PO DAILY #30 tablet. 03/08/20 Acetaminophen [Tylenol] 1,000 mg PO Q6H PRN PRN tab 03/30/20 Apixaban [Eliquis] 2.5 mg PO BID #60 tab 03/30/20 Hydrocortisone 2.5% Crm [Hytone] 1 applic TOPICAL BID PRN PRN tube 03/30/20 Menthol/Lanolin/Calamine/Znox [Calmoseptine Ointment] 1 applic TOPICAL 0600,2200 tube 03/30/20 Mineral Oil/Petrolatum,White [Eucerin] 1 applic TOPICAL DAILY@2200 jar 03/30/20 Paroxetine [Paxil] 10 mg PO QHS #30 tab 03/30/20 Potassium Chloride [K-Tab ER] 20 meq PO BID #60 tab 03/30/20 The following prescriptions were given: Apixaban [Eliquis] 2.5 mg PO BID #60 tab Transmission Status: Pending to [facility] Potassium Chloride [K-Tab ER] 20 meq PO BID #60 tab Transmission Status: Pending to [facility] Paroxetine [Paxil] 10 mg PO QHS #30 tab Transmission Status: Pending to [facility] Primary Care Physician: Denny Romano Chi, MD [Primary Care Provider] - Please follow up with your Primary Care Physician in: 1 week. Test Results: Test results from this visit will be discussed in further detail at your follow-up appointment, if applicable. Proposed Discharge Date: 04/01/20
--- NOTE | 2020-03-30 18:30 | PCM.DC.SUM ---
Discharge Date and Diagnosis - Problem List Patient Problems: Active and Suspected Problems (Last Reviewed 03/19/20 @ 14:[address] Naina Llamas, DO) Debility (Acute) Shortness of breath (Acute) Date of Admission: 03/21/20 Date of Discharge: 04/01/20 - Primary Discharge Diagnosis Acute Problems: Active Problems (Last Reviewed 03/19/20 @ 14:[address] Naina Llamas DO) Debility (Acute) Shortness of breath (Acute) - Secondary Discharge Diagnosis Chronic Problems: Chronic Problems (Last Reviewed 03/19/20 @ 14:[address] Naina Llamas, DO) Pressure ulcer of right buttock, stage 2 (Chronic) Chronic respiratory failure with hypoxia (Chronic) Gastric ulcer (Chronic) Stroke (Chronic) DVT (deep venous thrombosis) (Chronic) Atrial fibrillation (Chronic) Thoracic aortic aneurysm (Chronic) Chronic diastolic (congestive) heart failure (Chronic) COPD (chronic obstructive pulmonary disease) (Chronic) Gout (Chronic) Allergic rhinitis (Chronic) Hypokalemia (Chronic) Hyperlipidemia (Chronic) Obstructive sleep apnea (Chronic) Carotid stenosis (Chronic) Chronic kidney disease (Chronic) Dementia (Chronic) Meningioma (Chronic) Chronic diastolic heart failure (Chronic) Paroxysmal atrial fibrillation (Chronic) Diastolic CHF, acute (Chronic) Dyspnea on exertion (Chronic) Hyperparathyroidism (Chronic) Hypothyroidism (Chronic) Lymphomatoid papulosis (Chronic) Hypertension (Chronic) Obesity (Chronic) Right bundle branch block (Chronic) AV block, 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) GERD (gastroesophageal reflux disease) (Chronic) History of esophageal dilatation (Chronic) Anxiety and depression (Chronic) Thoracic aortic aneurysm (Chronic) 3.9 cm History of CVA (cerebrovascular accident) (Chronic) Hospital Course and Treatment Imaging Results: 03/22/20 13:42 Diet: Regular Diet Is pt able to select menu?: Yes Diet Comments: no added salt Clinical Impression(s) from Imaging Studies Chest X-Ray 03/25/20 16:14 IMPRESSION: Atelectasis or less likely infiltrate in the right lung base. Electronically Signed: Cayden Thornton MD at 16:37 EDT , Service support , Labs (Last 48 Hours) 07/21/20 07/21/20 05:08 05:08 WBC 7.1 RBC 3.56 L Hgb 11.0 L Hct 35.8 L MCV 100.6 H MCH 30.9 MCHC 30.7 L RDW Std Deviation 50.0 H RDW Coeff of Cricket 13.6 Plt Count 286 MPV 11.4 Immature Gran % (Auto) 0.400 Neut % (Auto) 70.5 H Lymph % (Auto) 18.1 L [place] % (Auto) 9.2 Eos % (Auto) 1.4 Baso % (Auto) 0.4 Absolute Neuts (auto) 5.0 Absolute Lymphs (auto) 1.28 Nucleated RBC % 0 Sodium 138 Potassium 4.3 Chloride 103 Carbon Dioxide 31.0 Anion Gap 4 L BUN 28 H Creatinine 1.42 H Estim Creat Clear Calc 36.16 Est GFR (MDRD) Af Amer 46 L Est GFR (MDRD) Non-Af 38 L BUN/Creatinine Ratio 19.7 Glucose 92 Calcium 10.0 Operations: None Procedures: None Summary of Care Provided: The patient is a 80 year old Female with below past medical history significant for recent upper gastrointestinal bleeding secondary to gastric ulcer, hospitalized for bilateral pulmonary embolism, admitted to TCU with debility, here for rehabilitation, strengthening, prior to discharge home with . Discharge home with , [facility] PT/OT/SN/SW, [facility], Palliative referral. Patient Problems: Active and Suspected Problems (Last Reviewed 03/19/20 @ 14:[address] Naina Llamas, DO) Debility (Acute) Shortness of breath (Acute) - Physical Exam Vitals/I&O's: Vital Signs Temp Pulse Resp BP Pulse Ox 97.7 F L 102 H 16 113/72 97 03/30/20 14:23 03/30/20 14:23 03/30/20 14:23 03/30/20 14:23 03/30/20 14:23 Oxygen Flow Rate (L/min) 2 Oxygen Delivery Method Nasal Cannula Weight: 76.26 kg Body Mass Index (BMI) 34.2 Finger Stick Blood Glucose 132 Intake and Output for Last 24 Hours 03/28/20 03/29/20 03/30/20 23:59 23:59 23:59 Intake Total 720 / 720 780 / 780 240 / 240 Balance 720 / 720 780 / 780 240 / 240 Current Medications Acetaminophen (Tylenol) 1,000 mg PO Q6H PRN PRN PRN Reason: Pain Score 1-10/10 Al Hydroxide/Mg Hydroxide (Mylanta Ii) 30 ml PO Q6H PRN PRN PRN Reason: Gastric Burning Albuterol Sulfate (Ventolin Hfa (Sp)) 2 puff INHALATION Q4H PRN PRN Reason: SOB &/OR WHEEZING Allopurinol (Zyloprim) 300 mg PO DAILY@0800 [facility] Last Admin: 03/30/20 07:49 Dose: 300 mg Documented by: Apixaban (Eliquis) 2.5 mg PO BID [facility] Last Admin: 03/30/20 06:17 Dose: 2.5 mg Documented by: Atenolol (Tenormin (Beta Ivan)) 25 mg PO BID [facility] Last Admin: 03/30/20 17:29 Dose: 25 mg Documented by: Atorvastatin Calcium (Lipitor) 10 mg PO QHS [facility] Last Admin: 03/29/20 21:36 Dose: 10 mg Documented by: Bisacodyl (Dulcolax) 10 mg RECTAL DAILY PRN PRN Reason: constipation Calamine/Phenol (Calmoseptine Ointment) 1 applic TOPICAL 0600,2200 [facility]; Protocol Last Admin: 03/30/20 06:33 Dose: 1 applicatio Documented by: Colchicine (Colchicine) 0.6 mg PO DAILY [facility] Last Admin: 03/30/20 06:17 Dose: 0.6 mg Documented by: Flecainide Acetate (Tambocor) 50 mg PO Q12 [facility] Last Admin: 03/30/20 17:29 Dose: 50 mg Documented by: Furosemide (Lasix) 20 mg PO QODAY@1000 [facility] Last Admin: 03/30/20 07:52 Dose: 20 mg Documented by: Hydrocortisone (Hytone) 1 applic TOPICAL BID PRN PRN; Protocol PRN Reason: RASH/TOPICAL IRRITATION Levothyroxine Sodium (Synthroid) 100 mcg PO MoTuWeThFrSa@0600 [facility] Last Admin: 03/30/20 06:17 Dose: 100 mcg Documented by: Multi-Ingredient Cream (Eucerin) 1 applic TOPICAL DAILY@2200 [facility]; Protocol Last Admin: 03/29/20 21:54 Dose: 1 applicatio Documented by: Nystatin (Mycostatin Powder) 1 applic TOPICAL 0600,2200 [facility]; Protocol Last Admin: 03/30/20 06:32 Dose: 1 applicatio Documented by: Pantoprazole Sodium (Protonix) 40 mg PO DAILY [facility] Last Admin: 03/30/20 06:17 Dose: 40 mg Documented by: Paroxetine HCl (Paxil) 10 mg PO QHS [facility] Last Admin: 03/29/20 21:38 Dose: 10 mg Documented by: Polyethylene Glycol (Miralax) 17 gm PO DAILY PRN PRN Reason: Constipation Potassium [facility] ([facility]Dur) [facility] Admin: 03/30/20 17:29 Dose: 20 meq Documented by: Senna/Docusate Sodium (Senokot-S, Neha-Colace) 1 tablet PO BID PRN PRN Reason: Constipation Discharge Diet: No Restrictions Discharge Activity: Return to Normal Activity, May Shower, Use Walker Weight Bearing Status: Weight bearing as tolerated Call your doctor if you observe: Fever of 101 or Higher, Inability to urinate, Inability to have a bowel movement, Shortness of breath, Chest pain, Uncontrolled pain Home Medications: Medications to take at Discharge Atorvastatin Calcium [Lipitor] 10 mg PO QHS 04/17/17 albuterol sulfate 90 mcg/actuation aerosol inhaler 2 puff INHALATION Q4H PRN g 09/27/17 levothyroxine 100 mcg tablet 100 mcg PO .COMPLEX 09/27/17 flecainide 50 mg tablet 50 mg PO Q12H #180 tab 09/10/19 atenolol 25 mg tablet 25 mg PO BID #180 tab 11/13/19 nystatin 100,000 unit/gram topical powder 1 applic TOPICAL .COMPLEX PRN 12/16/19 Colchicine 0.6 mg PO DAILY PRN 02/06/20 allopurinol 300 mg tablet 300 mg PO DAILY 03/03/20 furosemide 40 mg tablet 40 mg PO DAILY tab 03/03/20 Colchicine 0.6 mg PO DAILY 03/04/20 Pantoprazole Sodium 40 mg PO DAILY #30 tablet. 03/08/20 Acetaminophen [Tylenol] 1,000 mg PO Q6H PRN PRN tab 03/30/20 Apixaban [Eliquis] 2.5 mg PO BID #60 tab 03/30/20 Hydrocortisone 2.5% Crm [Hytone] 1 applic TOPICAL BID PRN PRN tube 03/30/20 Menthol/Lanolin/Calamine/Znox [Calmoseptine Ointment] 1 applic TOPICAL 0600,2200 tube 03/30/20 Mineral Oil/Petrolatum,White [Eucerin] 1 applic TOPICAL DAILY@2200 jar 03/30/20 Paroxetine [Paxil] 10 mg PO QHS #30 tab 03/30/20 Potassium Chloride [K-Tab ER] 20 meq PO BID #60 tab 03/30/20 Following Prescrptions Were Given to Patient: Apixaban [Eliquis] 2.5 mg PO BID #60 tab Transmission Status: Pending to [facility] #30 Potassium Chloride [K-Tab ER] 20 meq PO BID #60 tab Transmission Status: Pending to [facility]30 Paroxetine [Paxil] 10 mg PO QHS #30 tab Transmission Status: Pending to [facility]30 Primary Care Physician: Denny Romano Chi, MD [Primary Care Provider] - Please follow up with your Primary Care Physician in: 1 week. Disposition: Home with Home Health Minutes spent on discharge:: 35 Patient Condition:: Stable Medical Necessity - Tobacco Use Smoking Status: Never smoker Tobacco Use: Non-smoker Meaningful Use Info Meaningful Use Diagnoses (Choose all that apply): VTE - VTE Anticoag overlap given w/in hospital stay or rx'd at ct?: Yes Pt receive overlap for 5 days?: No Reason overlap not ordered, prescribed, or given for 5 days: Medical Contraindication
[2020-03-30] MEDS: PARoxetine 10 MG Tablet PO (21:09)
[2020-03-30] MEDS: Atorvastatin Calcium 10 MG Tablet PO (21:12)
[2020-03-30 21:25] VITALS: PULSE 102; RESP 18; O2SAT 98
[2020-03-31 04:00] VITALS: BP 133/83; PULSE 97; RESP 18; TEMP 36.8; O2SAT 97
[2020-03-31] MEDS: APIXABAN 2.5 MG TABLET PO ×2 (05:58→18:00)
[2020-03-31] MEDS: Atenolol 25 MG Tablet PO ×2 (05:58→18:00)
[2020-03-31] MEDS: Flecainide 100 MG Tablet 50 MG PO ×2 (05:58→18:00)
[2020-03-31] MEDS: Pantoprazole Sodium 40 MG Tablet PO (05:59)
[2020-03-31] MEDS: Levothyroxine 100 MCG Tablet PO (05:59)
[2020-03-31] MEDS: Nystatin Powder 15gm Bottle 1 APPLIC TOPICAL ×2 (06:01→20:46)
[2020-03-31] MEDS: Menthol/Lanolin/Calamine/Znox 113 GM Tube 1 APPLIC TOPICAL ×2 (06:03→20:44)
--- NOTE | 2020-03-31 08:16 | MDS.RN ---
Information for the mds was obtained from review of the clinical record, interview of resident, staff, and direct observation of resident's care.
[2020-03-31] MEDS: Allopurinol 300 MG Tablet PO (08:26)
[2020-03-31 13:38] VITALS: BP 112/68; PULSE 106; RESP 16; TEMP 35.9; O2SAT 98
--- NOTE | 2020-03-31 15:00 | MDS.RN ---
Pain interview for avril 04/01/20 completed.
[2020-03-31] MEDS: PARoxetine 10 MG Tablet PO (20:45)
[2020-03-31] MEDS: Atorvastatin Calcium 10 MG Tablet PO (20:45)
[2020-04-01 05:45] VITALS: BP 136/84; PULSE 98; RESP 16; TEMP 36.3; O2SAT 98
[2020-04-01] MEDS: Levothyroxine 100 MCG Tablet PO (05:50)
[2020-04-01] MEDS: Atenolol 25 MG Tablet PO (05:50)
[2020-04-01] MEDS: Pantoprazole Sodium 40 MG Tablet PO (05:51)
[2020-04-01] MEDS: APIXABAN 2.5 MG TABLET PO (05:51)
[2020-04-01] MEDS: Nystatin Powder 15gm Bottle 1 APPLIC TOPICAL (05:51)
[2020-04-01] MEDS: Menthol/Lanolin/Calamine/Znox 113 GM Tube 1 APPLIC TOPICAL (05:52)
[2020-04-01] MEDS: Flecainide 100 MG Tablet 50 MG PO (05:54)
[2020-04-01] MEDS: Allopurinol 300 MG Tablet PO (07:32)
[2020-04-01 07:33] VITALS: O2SAT 98
[2020-04-01] MEDS: Furosemide 20 MG Tablet PO (09:30)
[2020-04-01 09:48] VITALS: PULSE 91; RESP 16; O2SAT 98
[2020-04-01 09:56] VITALS: BP 124/74; PULSE 91; RESP 16; TEMP 36.6; O2SAT 98
== END 2020-04-01 10:30 | disposition home health service (06) | DRG 175 ==
PROVIDERS: Admitting Provider Family Medicine Geriatric Medicine; PCP Family Medicine Geriatric Medicine; Visit Provider Family Medicine Geriatric Medicine
DX: I26.99 Other pulmonary embolism without acute cor pulmonale (principal); K25.4 Chronic or unspecified gastric ulcer with hemorrhage; I50.32 Chronic diastolic (congestive) heart failure; I13.0 Hypertensive heart and chronic kidney disease with heart failure and stage 1 through stage 4 chronic kidney disease, or unspecified chronic kidney disease; J96.11 Chronic respiratory failure with hypoxia; E87.6 Hypokalemia; K21.9 Gastro-esophageal reflux disease without esophagitis; E03.9 Hypothyroidism, unspecified; E78.5 Hyperlipidemia, unspecified; J44.9 Chronic obstructive pulmonary disease, unspecified; B35.4 Tinea corporis; M1A.9XX0 Chronic gout, unspecified, without tophus (tophi); I48.0 Paroxysmal atrial fibrillation; G47.33 Obstructive sleep apnea (adult) (pediatric); E21.3 Hyperparathyroidism, unspecified; E66.9 Obesity, unspecified; Z68.34 Body mass index [BMI] 34.0-34.9, adult; F03.90 Unspecified dementia, unspecified severity, without behavioral disturbance, psychotic disturbance, mood disturbance, and anxiety; N18.9 Chronic kidney disease, unspecified; Z86.718 Personal history of other venous thrombosis and embolism; Z99.81 Dependence on supplemental oxygen; L89.312 Pressure ulcer of right buttock, stage 2; F41.9 Anxiety disorder, unspecified; F32.9 Major depressive disorder, single episode, unspecified
CPT/HCPCS: 36415; 71046; 80048; 85025; 87635; 97110; 97116; 97162; 97166; 97530; 97535; 97802; 99251; G2023; G0463; U0003

== ENCOUNTER 2020-04-03 10:58 | Inpatient (IN) | payer MEDICARE, SELFPAY ==
[2020-03-21 17:16] VITALS: BMI 34.2
[2020-04-03] VITALS (12 sets, daily range): BP systolic 103–143; BP diastolic 65–84; PULSE 83–121; RESP 16–25; TEMP 36.6–37.2; O2SAT 92–100; BMI 32.5; BMI 32.3
--- NOTE | 2020-04-03 11:18 | EKG12_ITS ---
Test Reason : DYSRHYTHMIA Blood Pressure : / mmHG Vent. Rate : 114 BPM Atrial Rate : 111 BPM P-R Int : 000 ms QRS Dur : 174 ms QT Int : 374 ms P-R-T Axes : 000 136 -30 degrees QTc Int : 515 ms Atrial fibrillation with rapid ventricular response with premature ventricular or aberrantly conducte d complexes Right bundle branch block T wave abnormality, consider inferior ischemia Abnormal ECG Confirmed by SARAH CURTIS, EVA ([id number]), editor at large RONIT MARTINEZ ([id number]) on 04/04/2020 1:17:34 PM Referred By: JOSUE Confirmed By:EVA SMITH MD
--- NOTE | 2020-04-03 11:22 | ED.VIS.GEN ---
History of Present Illness Informant: Patient, Family Limited by: Dementia Onset: Days - 2 days Context: Gradual Onset Timing: Continuous Quality: generalized weakness Location: generalized Current Severity: Severe Maximum Severity: Severe Worsened by: movement Relieved by: rest Associated Symptoms: left ankle pain Narrative: 80-year-old female with a history of dementia, atrial fibrillation, pulmonary embolism currently anticoagulated on Eliquis presents to the emergency department for generalized weakness and multiple falls over the last 2 days since being discharged from TCU. She is with her son. He states that she lives with her and his brother, the patient's other son. She has fallen multiple times over the past 2 days. No head injuries. These were witnessed falls. She has not been taking her medications appropriately either. They think that she needs to go to a fdc. History from the patient limited due to her dementia but she has no complaints at this time other than left ankle pain which she injured in her fall yesterday. She is ambulatory after the fall Prior similar symptoms: Yes Recent Illness/Hospitalization: Yes <Gilson Vega - Last Filed: 04/03/20 15:04> <Booker Downey - Last Filed: 04/03/20 15:12> Chief Complaint: Weakness Past Medical History Prior records reviewed: Yes Past Medical History: - - Hypertension, hyperlipidemia, pulmonary embolism, atrial fibrillation, dementia, GI bleed Surgical History: appendectomy, cholecystectomy, herniorrhaphy - With mesh, extensive per patient, total hip arthroplasty - Right, total knee arthroplasty - Bilateral, - - Esophageal dilation Lives: With Family Smoking Status: Never smoker Alcohol: None Drugs: None - Family History Paternal Family History: Family History (Last Reviewed 03/08/20 @ 13:02 by Amie Gordillo) Father CVA (cerebral vascular accident) Mother CAD (coronary artery disease) Congestive heart failure Family History: Reports: Stroke, No pertinent history - No history of lung disease or autoimmune disease Maternal Family History: Family History (Last Reviewed 03/08/20 @ 13:02 by Amie Gordillo) Father CVA (cerebral vascular accident) Mother CAD (coronary artery disease) Congestive heart failure Family History: Reports: Stroke, No pertinent history - No history of lung disease autoimmune disease <Gilson Vega - Last Filed: 04/03/20 15:04> - Family History Paternal Family History: Family History (Last Reviewed 03/08/20 @ 13:02 by Amie Gordillo) Father CVA (cerebral vascular accident) Mother CAD (coronary artery disease) Congestive heart failure Maternal Family History: Family History (Last Reviewed 03/08/20 @ 13:02 by Amie Gordillo) Father CVA (cerebral vascular accident) Mother CAD (coronary artery disease) Congestive heart failure <Downey,Booker - Last Filed: 04/03/20 15:12> - Allergies and Home Meds Allergies/Adverse Reactions: Allergies adhesive Allergy (Verified 04/03/20 11:04) Rash irbesartan Allergy (Verified 04/03/20 11:04) Unknown solifenacin [From Vesicare] Allergy (Verified 04/03/20 11:04) Unknown sulindac [Sulindac] Allergy (Verified 04/03/20 11:04) Unknown atorvastatin [From Lipitor] Adverse Reaction (Verified 04/03/20 11:04) Unknown lisinopril Adverse Reaction (Verified 04/03/20 11:04) Other COUGH losartan potassium [From Cozaar] Adverse Reaction (Verified 04/03/20 11:04) Other metoprolol Adverse Reaction (Verified 04/03/20 11:04) GI Upset ramipril [From Altace] Adverse Reaction (Verified 04/03/20 11:04) Other tramadol Adverse Reaction (Verified 04/03/20 11:04) Unknown Review of Systems General: Denies: Chills, Fever, Sweats Eyes: Denies: Visual changes - bilaterally, Diplopia ENT: Denies: Rhinorrhea, Sore throat Cardiovascular: Denies: Chest pain, Palpitations Respiratory: Denies: Dyspnea, Cough, Dyspnea on exertion Gastrointestinal: Denies: Abdominal pain, Nausea, Vomiting, Diarrhea, Melena, Hematochezia Genitourinary: Denies: Dysuria, Hematuria, Frequency Musculoskeletal: Reports: Swelling, Extremity Pain. Denies: Back pain Skin: Denies: Rash, Wounds Neurological: Denies: Headache, Weakness, Numbness <Gilson Vega - Last Filed: 04/03/20 15:04> Physical Exam Vital Signs/Narrative: Vital Signs Temp Pulse Resp BP Pulse Ox 04/03/20 10:59 98.5 F 116 H 16 143/66 H 92 Inital Vital Signs reviewed: Yes General: Well nourished, Well developed, No Acute Distress Head: Normocephalic, Atraumatic. Negative for: Trauma Eyes: Perrl, EOMI ENT: Moist mucous membranes, No rhinorrhea Neck: Supple, Nontender Cardiovascular: Regular rate, Regular rhythm, No murmurs Respiratory: No distress, CTA bilaterally, Chest nontender Abdomen: Soft, Nontender, Nondistended, Normal bowel sounds Back: Nontender, Normal Inspection Extremities: Nontender, No edema Skin: Normal color, No rash, - - Patient has swelling and bruising lateral malleolus left ankle. Bony tenderness on palpation in this area. There is no bony tenderness of her foot, base of the fifth metatarsal, proximal fibula or over her knee. She is able to plantarflex and dorsiflex actively. No pain over the calcaneus. Normal DP PT pulse. No pain on palpation over either hip. Neurological: Alert, Oriented x3, Cranial nerves II-XII grossly intact, Normal Strength, Normal Sensation Psychological: Normal affect, Normal Mood <Gilson Vega - Last Filed: 04/03/20 15:04> Vital Signs/Narrative: Vital Signs Pulse Resp BP Pulse Ox 04/03/20 13:00 121 H 25 H 122/79 H 100 <Booker Downey - Last Filed: 04/03/20 15:12> Diagnostic/Tx/Re-eval - Rhythm Strip Rhythm Strip: A-fib Rate: 111 Ectopy: None - EKG Initial EKG Interpretation: No Acute Injury Pattern, Atrial Fibrillation Prior: Unchanged - Medical Decision Making Patient is brought in by family after multiple falls over the last 2 days and because she is also been incorrectly taking her medications. She was discharged from TCU 2 days ago but they did not feel she was safe at home. They were attempting to get her sent to a fdc from home but were unable to do so. Metabolic work-up pursued. This was essentially unremarkable. X-ray of the left ankle that she injured from falling was unremarkable. Patient is in atrial fibrillation which is chronic for her. Did speak with social work but again unable to get patient placed from the emergency room. Will require admission. Urinalysis is negative. will admit for placement. <Gilson Vega - Last Filed: 04/03/20 15:04> - Medical Decision Making Patient was seen independently. Patient presents from home after multiple falls since discharge from the TCU on Saturday. She is not able to care for self. She is not able to take her medications. She denies fever or chills. She reports generalized weakness. Vital signs noted and she is tachycardic, tachypneic but not hypoxic. Blood pressure is acceptable. She appears pale. Heart is rapid and regular. Lungs are clear to auscultation. Abdomen soft flabby nontender. She does have evidence of bruising. She is on Eliquis. Since there is no history of head trauma no evidence head trauma imaging of the brain was not undertaken. Patient work-up essentially unremarkable. With history of frequent falls on anticoagulant unable to care for self unable to take her medication correctly hospitalist was paged for admission to the hospital with evaluation for appropriate disposition most likely nursing facility. <Booker Downey - Last Filed: 04/03/20 15:12> ED Disposition <Gilson Vega - Last Filed: 04/03/20 15:04> <Booker Downey - Last Filed: 04/03/20 15:12> - Plan for ED Patient: Diagnosis: Atrial fibrillation, COPD (chronic obstructive pulmonary disease), Chronic diastolic (congestive) heart failure, Left ankle sprain, Multiple falls, Debility
[2020-04-03 11:47] LABS: Absolute Lymphocyte Count 1.03 X10^3/uL (0.83-4.51); Absolute Neutrophil Count 11.5 X10^3/uL (2.0-7.7); Basophil# 0.04 X10^3/uL; Basophil% 0.3 % (0-1); Eosinophil# 0.06 X10^3/uL; Eosinophils% 0.4 % (0-5); Hematocrit 37.2 % (37-47); Hemoglobin 11.7 g/dL (12.0-15.0); Lymphocyte # 1.03 X10^3/ul (4.0); Lymphocyte % 7.5 % (19-41); Mean Corp Hgb Conc 31.5 g/dL (32-36); Mean Corpuscular Volume 98.4 fL (81-99); Mean Platelet Vol. 12.2 fl (6.2-12.0); Monocyte% 7.3 % (0-10); NRBC Flagged by Analyzer 0 % (0-5); Neutrophil # 11.53 X10^3/uL (2.7-7.7); Neutrophil % 83.8 % (47-70); Platelet Count 299 K/mm3 (150-450); Red Blood Count 3.78 M/mm3 (4.2-5.4); White Blood Count 13.8 K/mm3 (4.4-11.0)
--- NOTE | 2020-04-03 11:55 | RAD_ITS ---
STUDY: X-RAY - LEFT ANKLE REASON FOR EXAM: Female, 80 years old. Pt Has Had Several Falls, Pain And Swelling Laterally TECHNIQUE: Three view(s) of the ankle. COMPARISON: None. FINDINGS: Mild diffuse demineralization of the osseous structures. Normal medial and lateral malleoli. Normal tibiotalar articulation and ankle mortise. Plantar calcaneal spur. Degenerative changes of the tarsal joints and of the tarsometatarsal joints. There is soft tissue swelling laterally. RAD/Ankle min 3 Views IMPRESSION: Soft tissue swelling. No demonstrated acute osseous injury. Electronically Signed: Jerod Card MD at 12:54 EDT Tel , Service support ,
[2020-04-03 12:00] LABS: Anion Gap 5 (5-15); BUN 32 mg/dL (7-18); BUN/Creat Ratio 14.7 RATIO (10-20); Calcium,Total 10.5 mg/dL (8.5-10.1); Chloride 105 mmol/L (98-107); Creatinine, Serum 2.18 mg/dL (0.55-1.02); EST Glomerular Filtration Rate 23 mL/min (>60); Est Glom Filt Rate - Afr Amer 28 mL/min (>60); Estimated Creatinine Clearance 22.94 ml/min; Glucose 109 mg/dL (74-106); Potassium 4.6 mmol/L (3.5-5.1); Sodium Level 139 mmol/L (136-145)
[2020-04-03 14:30] LABS: Mucous, Urine 0 SEEN /hpf (<or=2+); Red Blood Cells-Urine 0 SEEN /hpf (0-5); Squamous Epithelial Cells - UA 0 SEEN /hpf (5-10); White Blood Cells 0 SEEN /hpf (0-5)
[2020-04-03 14:33] LABS: Color, Urine Yellow (Yellow); Glucose, Dipstick Normal (Normal); Ketone-Dipstick Negative (Negative); Leukocyte Esterase-Dipstick Negative /ul (Negative); Nitrite-Dipstick Negative (Negative); Occult Blood-Urine Negative /ul (Negative); Protein-Dipstick Negative (Negative); Specific Gravity, Urine 1.015 (1.002-1.030); Urine Bilirubin Dipstick Negative (Negative); Urine Clarity Clear (Clear); Urine Urobilinogen Normal (Normal)
[2020-04-03 14:39] LABS: Bacteria RARE /hpf (None Seen); Hyaline Cast 0-5 SEEN /lpf (0-5)
--- NOTE | 2020-04-03 14:56 | NURSING ---
MED SURG SEMENTI DEBILITY, FREQUENT FALLS
--- NOTE | 2020-04-03 15:09 | NURSING ---
MED SURG SEMENTI DEBILITY, FREQUESNT FALLS
--- NOTE | 2020-04-03 16:33 | HP.PCM_ITS ---
<Popeye Jones - Last Filed: 04/03/20 16:33> Problem List (1) Multiple falls Status: Acute (2) JESSICA (acute kidney injury) Status: Acute (3) Atrial fibrillation with rapid ventricular response Status: Acute (4) Pressure ulcer of right buttock, stage 2 Status: Chronic (5) Bilateral pulmonary embolism Status: Chronic (6) Chronic respiratory failure with hypoxia Status: Chronic (7) Gastric ulcer Status: Chronic (8) Stroke Status: Chronic (9) DVT (deep venous thrombosis) Status: Chronic (10) Thoracic aortic aneurysm Status: Chronic (11) Chronic diastolic (congestive) heart failure Status: Chronic (12) COPD (chronic obstructive pulmonary disease) Status: Chronic (13) Gout Status: Chronic (14) Hyperlipidemia Status: Chronic (15) Obstructive sleep apnea Status: Chronic (16) Carotid stenosis Status: Chronic (17) Chronic kidney disease Status: Chronic Qualifiers: Chronic kidney disease stage: unspecified stage Qualified Code(s): N18.9 - Chronic kidney disease, unspecified (18) Dementia Status: Chronic Qualifiers: Dementia type: unspecified type Dementia behavioral disturbance: without behavioral disturbance Qualified Code(s): F03.90 - Unspecified dementia without behavioral disturbance (19) Meningioma Status: Chronic (20) Paroxysmal atrial fibrillation Status: Chronic (21) Hyperparathyroidism Status: Chronic (22) Hypothyroidism Status: Chronic (23) Hypertension Status: Chronic Qualifiers: Hypertension type: unspecified Qualified Code(s): I10 - Essential (primary) hypertension (24) Obesity Status: Chronic Qualifiers: Obesity type: unspecified obesity type (25) GERD (gastroesophageal reflux disease) Status: Chronic (26) Anxiety and depression Status: Chronic (27) Thoracic aortic aneurysm Status: Chronic Comment: 3.9 cm History of Present Illness Date of Admission: 04/03/20 Chief Complaint: Falls The patient is a 80 year old F with extensive past medical hx as above who presented to the ER with falls. The patient had recently been admitted to the hospital from 03/19/20 to 03/21/20 where she was treated for PE. She was then discharged to the TCU for debility. She states that she was doing well and walking with a walker in the TCU. After she went home she became weaker. The son states that she fell before she even got back into the house. She has fallen 5 times since then. The last time her son and were unable to get her up. She also injured her left ankle, which has ongoing pain and swelling, however there is no acute fracture on xray. She also has not been taking her medications correctly at home, her memory has been poor and she was mixing up different days pills. Her son believes she even took more than one days worth of pills at a time. She denies CP, SOB, dizziness, LH, focal weakness, parasthesias. She came to the ER and appears to have JESSICA and Afib RVR. [] Past Medical History Past Medical History (Chronic Problems): Chronic Problems (Last Reviewed 03/19/20 @ 14:[address] Naina Llamas, DO) Pressure ulcer of right buttock, stage 2 (Chronic) Bilateral pulmonary embolism (Chronic) Chronic respiratory failure with hypoxia (Chronic) Gastric ulcer (Chronic) Stroke (Chronic) DVT (deep venous thrombosis) (Chronic) Atrial fibrillation (Chronic) Thoracic aortic aneurysm (Chronic) Chronic diastolic (congestive) heart failure (Chronic) COPD (chronic obstructive pulmonary disease) (Chronic) Gout (Chronic) Allergic rhinitis (Chronic) Hypokalemia (Chronic) Hyperlipidemia (Chronic) Obstructive sleep apnea (Chronic) Carotid stenosis (Chronic) Chronic kidney disease (Chronic) Dementia (Chronic) Meningioma (Chronic) Chronic diastolic heart failure (Chronic) Paroxysmal atrial fibrillation (Chronic) Diastolic CHF, acute (Chronic) Dyspnea on exertion (Chronic) Hyperparathyroidism (Chronic) Hypothyroidism (Chronic) Lymphomatoid papulosis (Chronic) Hypertension (Chronic) Obesity (Chronic) Right bundle branch block (Chronic) AV block, 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 Naina Llamas, DO) Hyperlipidemia (Chronic) E78.5 Obstructive sleep apnea (Chronic) G47.33 Carotid stenosis (Chronic) I65.29 Chronic kidney disease (Chronic) N18.9 Dementia (Chronic) F03.90 Meningioma (Chronic) D32.9 Chronic diastolic heart failure (Chronic) I50.32 Paroxysmal atrial fibrillation (Chronic) I48.0 Diastolic CHF, acute (Chronic) I50.31 Dyspnea on exertion (Chronic) R06.09 Hyperparathyroidism (Chronic) E21.3 Hypothyroidism (Chronic) E03.9 Lymphomatoid papulosis (Chronic) C86.6 Hypertension (Chronic) I10 Obesity (Chronic) E66.9 Right bundle branch block (Chronic) I45.10 AV block, 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) I44.0 GERD (gastroesophageal reflux disease) (Chronic) K21.9 Anxiety and depression (Chronic) F41.9, F32.9 Thoracic aortic aneurysm (Chronic) I71.2 3.9 cm History of CVA (cerebrovascular accident) (Chronic) Z86.73 Osteoarthritis M19.90 Allergies adhesive Allergy (Verified 04/03/20 11:04) Rash irbesartan Allergy (Verified 04/03/20 11:04) Unknown solifenacin [From Vesicare] Allergy (Verified 04/03/20 11:04) Unknown sulindac [Sulindac] Allergy (Verified 04/03/20 11:04) Unknown atorvastatin [From Lipitor] Adverse Reaction (Verified 04/03/20 11:04) Unknown lisinopril Adverse Reaction (Verified 04/03/20 11:04) Other COUGH losartan potassium [From Cozaar] Adverse Reaction (Verified 04/03/20 11:04) Other metoprolol Adverse Reaction (Verified 04/03/20 11:04) GI Upset ramipril [From Altace] Adverse Reaction (Verified 04/03/20 11:04) Other tramadol Adverse Reaction (Verified 04/03/20 11:04) Unknown Home Medications: Ambulatory Orders Medication Instructions Recorded Atorvastatin Calcium [Lipitor] 10 mg PO QHS 04/17/17 albuterol sulfate 90 mcg/actuation 2 puff INHALATION Q4H PRN g 09/27/17 aerosol inhaler levothyroxine 100 mcg tablet 100 mcg PO .COMPLEX 09/27/17 flecainide 50 mg tablet 50 mg PO Q12H #180 tab 09/10/19 atenolol 25 mg tablet 25 mg PO BID #180 tab 11/13/19 nystatin 100,000 unit/gram topical 1 applic TOPICAL .COMPLEX PRN 12/16/19 powder Colchicine 0.6 mg PO DAILY PRN 02/06/20 allopurinol 300 mg tablet 300 mg PO DAILY 03/03/20 furosemide 40 mg tablet 40 mg PO DAILY tab 03/03/20 Colchicine 0.6 mg PO DAILY 03/04/20 Pantoprazole Sodium 40 mg PO DAILY #30 tablet. 03/08/20 Acetaminophen [Tylenol] 1,000 mg PO Q6H PRN PRN tab 03/30/20 Apixaban [Eliquis] 2.5 mg PO BID #60 tab 03/30/20 Hydrocortisone 2.5% Crm [Hytone] 1 applic TOPICAL BID PRN PRN tube 03/30/20 Menthol/Lanolin/Calamine/Znox 1 applic TOPICAL 0600,2200 tube 03/30/20 [Calmoseptine Ointment] Mineral Oil/Petrolatum,White 1 applic TOPICAL DAILY@2200 jar 03/30/20 [Eucerin] Paroxetine [Paxil] 10 mg PO QHS #30 tab 03/30/20 Potassium Chloride [K-Tab ER] 20 meq PO BID #60 tab 03/30/20 Surgical History: Surgical History (Last Reviewed 03/19/20 @ 14:[address] 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 Lives: With Family Smoking Status: Never smoker Tobacco Use: Non-smoker Alcohol: None Drugs: None - *Family History Paternal Family History: Family History (Last Reviewed 04/03/20 @ 16:40 by ALESSANDRO aCrdoza) Father CVA (cerebral vascular accident) Mother CAD (coronary artery disease) Congestive heart failure History Items: Stroke, No pertinent history - No history of lung disease or autoimmune disease Maternal Family History: Family History (Last Reviewed 04/03/20 @ 16:40 by ALESSANDRO Cardoza) Father CVA (cerebral vascular accident) Mother CAD (coronary artery disease) Congestive heart failure History Items: Stroke, No pertinent history - No history of lung disease autoimmune disease Review of Systems Constitutional: Reports: Weakness. Denies: Chills, Fever, Weight Change HEENT: Denies: Head Aches, Sinus Congestion, Sinus Drainage Cardiovascular: Denies: Chest Pain, Chest Pressure, Chest Tightness, Edema, Heaviness, Light Headedness, Palpitations, Paroxysmal Noc. Dyspnea, Syncope Respiratory: Denies: Cough, Shortness of Breath, Shortness of breath at rest, Sputum production Gastrointestinal: Denies: Abdominal Pain, Nausea, Vomiting Genitourinary: Denies: Dysuria Musculoskeletal: Reports: Joint Pain - left ankle, Joint swelling, Joint Tend erness Skin: Denies: Rash, Wounds Neurological: Denies: Numbness, Tingling, Focal weakness Psychiatric: Denies: Anxiety, Depression, Homicidal Ideations, Suicidal Ideations Hematologic/ Lymphatic: Denies: Easy Bruising, Easy Bleeding VTE Information - Inpt Only VTE Present on Admission: No VTE Mechan Device Prophylaxis: None VTE Pharm Prophylaxis ordered?: Yes Patient Problems: Active and Suspected Problems (Last Reviewed 03/19/20 @ 14:[address] Naina Llamas, DO) Debility (Acute) Left ankle sprain (Acute) Multiple falls (Acute) JESSICA (acute kidney injury) (Acute) - Physical Exam Vitals/I&O's: Vital Signs Temp Pulse Resp BP Pulse Ox 98.9 F 112 H 18 104/84 H 99 04/03/20 16:17 04/03/20 16:17 04/03/20 16:17 04/03/20 16:17 04/03/20 16:17 Oxygen Delivery Method Nasal Cannula Weight: 161 lb Body Mass Index (BMI) 32.5 Finger Stick Blood Glucose 132 General: Alert, Oriented x3, Cooperative HEENT: Atraumatic, PERRLA, EOMI, Normocephalic Neck: Supple, No JVD, Negative Carotid Bruits Lungs: Clear to auscultation, Normal air movement Cardiovascular: Irregular Rate, Tachycardic Abdomen: Bowel Sounds Present, Soft, Non Tender Extremities: No edema, Capillary Refill Less than 3 Seconds Skin: No rashes, No breakdown Musculoskeletal: No Tenderness to Palpation of Joints or Extremities, - - left ankle swelling and tenderness. ROM limited 2/2 pain. Neurological: Cranial nerves II-XII grossly intact Psych/Mental Status: Normal Affect, Appropriate, Alert and oriented to time, place, person, mood and affect Laboratory Results 04/03/20 11:35: WBC 13.8 H, RBC 3.78 L, Hgb 11.7 L, Hct 37.2, MCV 98.4, MCH 31.0, MCHC 31.5 L, RDW Std Deviation 50.0 H, RDW Coeff of Cricket 14.0, Plt Count 299, MPV 12.2 H, Immature Gran % (Auto) 0.700, Neut % (Auto) 83.8 H, Lymph % (Auto) 7.5 L, Day % (Auto) 7.3, Eos % (Auto) 0.4, Baso % (Auto) 0.3, Absolute Neuts (auto) 11.5 H, Absolute Lymphs (auto) 1.03, Nucleated RBC % 0 04/03/20 11:35: Sodium 139, Potassium 4.6, Chloride 105, Carbon Dioxide 29.0, Anion Gap 5, BUN 32 H, Creatinine 2.18 H, Estim Creat Clear Calc 22.94, Est GFR (MDRD) Af Amer 28 L, Est GFR (MDRD) Non-Af 23 L, BUN/Creatinine Ratio 14.7, Glucose 109 H, Calcium 10.5 H 04/03/20 14:25: Urine Color Yellow, Urine Clarity Clear, Urine pH 5.0, Ur Specific [place] 1.015, Urine Protein Negative, Urine Glucose (UA) Normal, Urine Ketones Negative, Urine Occult Blood Negative, Urine Nitrite Negative, Urine Bilirubin Negative, Urine Urobilinogen Normal, Ur Leukocyte Esterase Negative, Urine RBC 0 SEEN, Urine WBC 0 SEEN, Ur Squamous Epith Cells 0 SEEN, Urine Bacteria RARE, Hyaline Casts 0-5 SEEN, Urine Mucus 0 SEEN Assessment/Plan All Active Problems (Last Reviewed 03/19/20 @ 14:[address] Naina Llamas, DO) Upper GI bleeding (Acute) Acute blood loss anemia (Acute) Atrial fibrillation with rapid ventricular response (Acute) Dyspnea (Acute) Back pain (Acute) Debility (Acute) Shortness of breath (Acute) Left ankle sprain (Acute) Multiple falls (Acute) JESSICA (acute kidney injury) (Acute) Bradycardia (Acute) Confusion (Resolved) Esophageal stricture (Resolved) Expressive aphasia (Resolved) Hypoxia (Resolved) 1. Generalized debility - pt left TCU after being recommended to go elsewhere for ongoing therapy, however declined and went home. She fell 5x. Obtain PTOT evals. 2. Left ankle sprain - significant pain and swelling, no fx on xray. RICE therapy initiated. Avoid NSAIDs. 3. Chronic Afib/RVR - mild RVR, likely due to dehydration and pain. Will treat conservatively with IV fluids and monitor on tele overnight. Continue eliquis, atenolol, flecainide 4. JESSICA on CKDIII 2/2 dehydration - fluids. hold lasix. 5. Recent acute BL PEs - continue eliquis 6. Hx GI bleed - monitor Hgb, however she needs to continue eliquis given recent PEs. Pt is on PPI. 7. Dementia - memory is poor and she has been mixing up her medications at home. 8. Chronic diastolic CHF - no exacerbation - avoid over hydration 9. Hx stroke - continue statin / eliquis. 10. Chronic hypoxic resp failure 2/2 COPD/CHF - no exacerbation. BL 2-3 lpm rest/exertion. Incentive spirometer and prn aerosols, avoid excessive albuterol. 11. hypothyroidism - synthroid DVT ppx: eliquis DC planning: SNF This patient was seen by Popeye Jones PA-C under the supervision of Doctor Britton. <Nancy Britton - Last Filed: 04/03/20 17:36> History of Present Illness The patient is a 80 year old F [] Past Medical History Medical History: Medical History (Last Reviewed 03/19/20 @ 14:[address] Naina Llamas, DO) Hyperlipidemia (Chronic) E78.5 Obstructive sleep apnea (Chronic) G47.33 Carotid stenosis (Chronic) I65.29 Chronic kidney disease (Chronic) N18.9 Dementia (Chronic) F03.90 Meningioma (Chronic) D32.9 Chronic diastolic heart failure (Chronic) I50.32 Paroxysmal atrial fibrillation (Chronic) I48.0 Diastolic CHF, acute (Chronic) I50.31 Dyspnea on exertion (Chronic) R06.09 Hyperparathyroidism (Chronic) E21.3 Hypothyroidism (Chronic) E03.9 Lymphomatoid papulosis (Chronic) C86.6 Hypertension (Chronic) I10 Obesity (Chronic) E66.9 Right bundle branch block (Chronic) I45.10 AV block, 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) I44.0 GERD (gastroesophageal reflux disease) (Chronic) K21.9 Anxiety and depression (Chronic) F41.9, F32.9 Thoracic aortic aneurysm (Chronic) I71.2 3.9 cm History of CVA (cerebrovascular accident) (Chronic) Z86.73 Osteoarthritis M19.90 Allergies adhesive Allergy (Verified 04/03/20 11:04) Rash irbesartan Allergy (Verified 04/03/20 11:04) Unknown solifenacin [From Vesicare] Allergy (Verified 04/03/20 11:04) Unknown sulindac [Sulindac] Allergy (Verified 04/03/20 11:04) Unknown atorvastatin [From Lipitor] Adverse Reaction (Verified 04/03/20 11:04) Unknown lisinopril Adverse Reaction (Verified 04/03/20 11:04) Other COUGH losartan potassium [From Cozaar] Adverse Reaction (Verified 04/03/20 11:04) Other metoprolol Adverse Reaction (Verified 04/03/20 11:04) GI Upset ramipril [From Altace] Adverse Reaction (Verified 04/03/20 11:04) Other tramadol Adverse Reaction (Verified 04/03/20 11:04) Unknown Surgical History: Surgical History (Last Reviewed 03/19/20 @ 14:[address] Naina Llamas, DO) History of esophageal dilatation (Chronic) Z98.890 H/O total knee replacement Z96.659 History of incisional hernia repair Z98.890, Z87.19 History of total hip replacement Z96.649 Hx of cholecystectomy Z98.890, Z90.49 - *Family History Paternal Family History: Family History (Last Reviewed 04/03/20 @ 16:40 by ALESSANDRO Cardoza) Father CVA (cerebral vascular accident) Mother CAD (coronary artery disease) Congestive heart failure Maternal Family History: Family History (Last Reviewed 04/03/20 @ 16:40 by ALESSANDRO Cardoza) Father CVA (cerebral vascular accident) Mother CAD (coronary artery disease) Congestive heart failure - Physical Exam Vitals/I&O's: Vital Signs Temp Pulse Resp BP Pulse Ox 98.5 F 83 18 111/77 100 04/03/20 16:46 04/03/20 16:46 04/03/20 16:46 04/03/20 16:46 04/03/20 16:46 Oxygen Flow Rate (L/min) 3 Oxygen Delivery Method Nasal Cannula Weight: 72.5 kg Body Mass Index (BMI) 32.3 Finger Stick Blood Glucose 132 Laboratory Results 04/03/20 11:35: WBC 13.8 H, RBC 3.78 L, Hgb 11.7 L, Hct 37.2, MCV 98.4, MCH 31.0, MCHC 31.5 L, RDW Std Deviation 50.0 H, RDW Coeff of Cricket 14.0, Plt Count 299, MPV 12.2 H, Immature Gran % (Auto) 0.700, Neut % (Auto) 83.8 H, Lymph % (Au to) 7.5 L, Day % (Auto) 7.3, Eos % (Auto) 0.4, Baso % (Auto) 0.3, Absolute Neuts (auto) 11.5 H, Absolute Lymphs (auto) 1.03, Nucleated RBC % 0 04/03/20 11:35: Sodium 139, Potassium 4.6, Chloride 105, Carbon Dioxide 29.0, Anion Gap 5, BUN 32 H, Creatinine 2.18 H, Estim Creat Clear Calc 22.94, Est GFR (MDRD) Af Amer 28 L, Est GFR (MDRD) Non-Af 23 L, BUN/Creatinine Ratio 14.7, Glucose 109 H, Calcium 10.5 H 04/03/20 11:35: Total Bilirubin Pending, Direct Bilirubin Pending, AST Pending, ALT Pending, Alkaline Phosphatase Pending, Total Protein Pending, Albumin Pending 04/03/20 14:25: Urine Color Yellow, Urine Clarity Clear, Urine pH 5.0, Ur Specific [place] 1.015, Urine Protein Negative, Urine Glucose (UA) Normal, Urine Ketones Negative, Urine Occult Blood Negative, Urine Nitrite Negative, Urine Bilirubin Negative, Urine Urobilinogen Normal, Ur Leukocyte Esterase Negative, Urine RBC 0 SEEN, Urine WBC 0 SEEN, Ur Squamous Epith Cells 0 SEEN, Urine Bacteria RARE, Hyaline Casts 0-5 SEEN, Urine Mucus 0 SEEN Current Medications Acetaminophen (Tylenol) 650 mg PO Q6H PRN PRN PRN Reason: Pain Score 1-10/Temp > 100.7 F Al Hydroxide/Mg Hydroxide (Mylanta Ii) 30 ml PO Q6H PRN PRN PRN Reason: Gastric Burning Sodium Chloride () 1,000 mls @ 100 mls/hr IV .Q10H CHALINO Stop: 04/04/20 07:47 Ondansetron HCl (Zofran) 4 mg IV Q8H PRN PRN PRN Reason: NAUSEA/VOMITING Psyllium Hydrophilic Mucilloid (Metamucil) 1 packet PO DAILY PRN PRN PRN Reason: Constipation Sodium Chloride () 10 - 40 ml IV UD PRN PRN Reason: SALINE FLUSH Assessment/Plan This patient was seen in conjunction with ALESSANDRO Cardoza. I have independently interviewed and examined the patient and reviewed pertinent historical, laborat ory, and other data. Please refer to ALESSANDRO Cardoza note for his patient's presentation, findings, and recommendations. I have reviewed and his note and concur with his documentation This is an 80-year-old with past medical history of chronic A. fib, history of recent acute bilateral PE, history of GI bleed, dementia, chronic diastolic CHF who was recently discharged to the TCU after her bilateral PE. Patient was discharged from the TCU 2 days ago. Prior to discharge, it was recommended a patient goes to an SNF care facility. She refused and wanted to be discharged home. Whilst at home, patient has been not been able to walk. She has had multiple falls without hitting her head. These falls were witnessed and were more of the patient tripping and catching herself and sitting down. She lives with her and son who are unable to take care of her. They feel that she needs to go to a intermediate. She denied any new complaint except for left ankle swelling. X-ray of the ankle in the ED was negative for acute fracture. Denies any dizziness or palpitations or chest pain. She is hard of hearing Physical Exam: Gen: Comfortable, not pale, not jaundiced, 3 L of oxygen CVS:HS I +II, regular, no murmurs RESP: Clinically clear to auscultation GI: BS present and normal, soft, nontender, no palpable organs EXT: Left ankle is swollen, tender, edematous ASSESSMENT: 1. Debility, recurrent falls 2. Acute kidney injury kidney stage III, baseline creatinine is around 1.4 3. Left ankle sprain 4. Chronic A. fib with mild RVR likely secondary to dehydration 5. Recent bilateral PE 6. Chronic hypoxic respiratory failure secondary COPD/RODOLFO 7. History of GI bleed 8. Dementia 9. Chronic diastolic CHF Plan: Continue on IV fluids, blood work in a.m. Continue on Eliquis Apply ice to the left ankle PT and OT to evaluate Continue atenolol Social work/case management consult Inpatient E&M: [id number] Init Hosp L2
[2020-04-03 18:02] LABS: AST(SGOT) 32 U/L (15-37); Alanine Aminotransfer ALT/SGPT 27 U/L (13-56); Albumin, Serum 3.3 g/dL (3.2-5.0); Alkaline Phosphatase 87 U/L (45-117); Bilirubin, Direct 0.18 mg/dL (0.00-0.30); Globulin 3.2 g/dL (2.2-4.2); Protein, Total 6.5 g/dL (6.4-8.2)
[2020-04-03] MEDS: 0.9% Normal Saline 1,000 ML 100 ML IV (18:24)
[2020-04-03] MEDS: 0.9% Saline Lock 10 ML Syringe IV (18:24)
--- NOTE | 2020-04-03 18:30 | NURSING ---
1819 Dr Britton texted about heartrate, 110-120, hx afib and BBB, v-tach noted on strip. Rajendra Mei RN
[2020-04-03 18:53] LABS: Magnesium 1.6 mg/dL (1.6-2.6); Thyroid Stim Hormone (TSH) 0.38 uIU/mL (0.358-3.74)
[2020-04-03] MEDS: Metoprolol Tartrate 5 MG/5 ML Vial IV (19:03)
--- NOTE | 2020-04-03 19:55 | NURSING ---
1902 Dr Britton ordered med for heartrate- see Mar. pt tolerated well. Night Nurse-Suzanne Mei RN
[2020-04-03] MEDS: Atenolol 25 MG Tablet PO (20:31)
[2020-04-03] MEDS: PARoxetine 10 MG Tablet PO (21:46)
[2020-04-03] MEDS: Flecainide 100 MG Tablet 50 MG PO (21:46)
[2020-04-03] MEDS: APIXABAN 2.5 MG TABLET PO (21:50)
[2020-04-03] MEDS: Atorvastatin Calcium 10 MG Tablet PO (21:50)
[2020-04-04] VITALS (7 sets, daily range): BP systolic 105–113; BP diastolic 59–75; PULSE 86–96; RESP 18; TEMP 36.7; O2SAT 96–100
[2020-04-04] MEDS: 0.9% Normal Saline 1,000 ML 100 ML IV (03:51)
[2020-04-04] MEDS: Levothyroxine 100 MCG Tablet PO (05:56)
[2020-04-04 06:24] LABS: Absolute Lymphocyte Count 0.96 X10^3/uL (0.83-4.51); Absolute Neutrophil Count 6.3 X10^3/uL (2.0-7.7); Basophil# 0.02 X10^3/uL; Basophil% 0.2 % (0-1); Eosinophil# 0.07 X10^3/uL; Eosinophils% 0.9 % (0-5); Hematocrit 33.3 % (37-47); Hemoglobin 10.1 g/dL (12.0-15.0); Lymphocyte # 0.96 X10^3/ul (4.0); Lymphocyte % 11.9 % (19-41); Mean Corp Hgb Conc 30.3 g/dL (32-36); Mean Corpuscular Hgb 30.3 pg (27.0-32.0); Mean Platelet Vol. 12.2 fl (6.2-12.0); Monocyte# 0.71 X10^3/uL; Monocyte% 8.8 % (0-10); NRBC Flagged by Analyzer 0 % (0-5); Neutrophil # 6.29 X10^3/uL (2.7-7.7); Neutrophil % 77.8 % (47-70); Platelet Count 214 K/mm3 (150-450); RBC Distribution Width CV 14.1 % (11.6-14.6); RBC Distribution Width SD 50.8 fl (35.1-43.9); Red Blood Count 3.33 M/mm3 (4.2-5.4); White Blood Count 8.1 K/mm3 (4.4-11.0)
[2020-04-04 06:38] LABS: ALB/GLOB Ratio 0.9 RATIO (0.9-2.4); AST(SGOT) 18 U/L (15-37); Alanine Aminotransfer ALT/SGPT 19 U/L (13-56); Albumin, Serum 2.5 g/dL (3.2-5.0); Alkaline Phosphatase 74 U/L (45-117); Anion Gap 3 (5-15); BUN 27 mg/dL (7-18); BUN/Creat Ratio 18.2 RATIO (10-20); Calcium,Total 9.3 mg/dL (8.5-10.1); Chloride 109 mmol/L (98-107); Creatinine, Serum 1.48 mg/dL (0.55-1.02); EST Glomerular Filtration Rate 36 mL/min (>60); Est Glom Filt Rate - Afr Amer 43 mL/min (>60); Estimated Creatinine Clearance 35.12 ml/min; Globulin 2.7 g/dL (2.2-4.2); Glucose 92 mg/dL (74-106); Potassium 3.8 mmol/L (3.5-5.1); Protein, Total 5.2 g/dL (6.4-8.2); Sodium Level 142 mmol/L (136-145)
[2020-04-04] MEDS: Atenolol 25 MG Tablet PO (08:02)
[2020-04-04] MEDS: APIXABAN 2.5 MG TABLET PO (08:02)
[2020-04-04] MEDS: Allopurinol 300 MG Tablet PO (08:02)
[2020-04-04] MEDS: Flecainide 100 MG Tablet 50 MG PO (08:02)
[2020-04-04] MEDS: Pantoprazole Sodium 40 MG Tablet PO (08:03)
--- NOTE | 2020-04-04 10:22 | CASEMGMT ---
Addendum entered by Nola Arevalo 04/04/20 13:43: SW received message from Daija at [facility] stating they are able to accept pt and will be faxing over COVID resident screening tool that will need to be completed. [facility] for Ivis AQUINO regarding referral. SW faxed referral to [facility]. Plan: W pending pre-cert. Pt will need negative COVID test. COVID test has been ordered. Original Note: Social Work Assessment Referral Date: 04/04/2020 Date of Assessment: 04/04/2020 Reason for consult: SNF Informant: MD Personal Status: SW met with pt to complete initial assessment. SW introduced self and role at [facility]. Pt is alert and orientated x3. Pt states that she lives with her and son in a one story home with three steps to enter. Pt states that she was discharged from [facility] on 04/01/2020 and was doing well but when pt returned home she was unable to make it up the last step to enter the home. Pt states her was unable to help and her daughter was not able to help. Pt states her PHIL had to come and help her into the home. Pt states Saturday she fell a few times and twisted her ankle. Pt states that she has three canes, walker in shower, and shower chair at home. Pt states PCP is Dr. Romano and Pharmacy is [facility]. Substance Abuse Hx: Pt denied Mental Health Hx: Pt denied HHC: [facility] HH SNF: [facility] SW spoke with pt regarding discharge plans. Pt states she needs to go to SNF for therapy and therapy only. Pt states is agreeable to [facility]. SW explained referral process and that pt will need pre-cert. Pt states understanding. YIN placed a call to [facility] and spoke with Daija. YIN updated Daija that pt had COVID test done 03/22/2020, Daija states pt will need new COVID test. YIN informed Daija that pt is planning on coming for therapy only. YIN updated Daija that pt has [facility], so this worker will need to get pre-cert. YIN faxed referral to [facility]. Plan: [facility] pending acceptance and pre-cert Nola Arevalo MANAGER TECHNICAL, ALUMINUM SIDING INSTALLER
--- NOTE | 2020-04-04 12:07 | PN_ITS ---
Patient Problems: Active and Suspected Problems (Last Reviewed 03/19/20 @ 14:[address] Naina Llamas, DO) Debility (Acute) Left ankle sprain (Acute) Multiple falls (Acute) JESSICA (acute kidney injury) (Acute) Reason for Visit: debility, falls Subjective: Pt now agreeable to further residential. Ongoing left ankle pain and swelling. Pt has not ambulated yet. No fever/chills, nausea,vomiting,diarrhea, cough, or dysuria. Vitals/I&O's: Vital Signs Temp Pulse Resp BP Pulse Ox 98.0 F 91 18 105/75 96 04/04/20 08:00 04/04/20 08:00 04/04/20 08:00 04/04/20 08:00 04/04/20 08:00 Oxygen Flow Rate (L/min) 3 Oxygen Delivery Method Nasal Cannula Weight: 167 lb 5.294 oz Body Mass Index (BMI) 32.3 Finger Stick Blood Glucose 132 Intake and Output for Last 24 Hours 04/02/20 04/03/20 04/04/20 23:59 23:59 23:59 Intake Total 240 / 240 1885 / 1885 Output Total 0 / 0 700 / 700 Balance 240 / 240 1185 / 1185 General: Alert, Oriented x3, Cooperative HEENT: Atraumatic, PERRLA, EOMI, Normocephalic Neck: Supple, No JVD, Negative Carotid Bruits Lungs: Clear to auscultation, Normal air movement Cardiovascular: Regular rate, No murmurs Abdomen: Bowel Sounds Present, Soft, Non Tender Extremities: No edema, Capillary Refill Less than 3 Seconds Skin: No rashes, No breakdown Musculoskeletal: - - left ankle lateral swelling and tenderness. rom limited 2/2 pain. Neurological: Cranial nerves II-XII grossly intact Psych/Mental Status: Normal Affect, Appropriate Laboratory Results 04/03/20 11:35: Total Bilirubin 0.70, Direct Bilirubin 0.18, AST 32, ALT 27, Alkaline Phosphatase 87, Total Protein 6.5, Albumin 3.3, Globulin 3.2 04/03/20 11:35: Magnesium 1.6, TSH 0.38 04/03/20 14:25: Urine Color Yellow, Urine Clarity Clear, Urine pH 5.0, Ur Specific [place] 1.015, Urine Protein Negative, Urine Glucose (UA) Normal, Urine Ketones Negative, Urine Occult Blood Negative, Urine Nitrite Negative, Urine Bilirubin Negative, Urine Urobilinogen Normal, Ur Leukocyte Esterase Negative, Urine RBC 0 SEEN, Urine WBC 0 SEEN, Ur Squamous Epith Cells 0 SEEN, Urine Bacteria RARE, Hyaline Casts 0-5 SEEN, Urine Mucus 0 SEEN 04/04/20 06:04: WBC 8.1, RBC 3.33 L, Hgb 10.1 L, Hct 33.3 L, MCV 100.0 H, MCH 30.3, MCHC 30.3 L, RDW Std Deviation 50.8 H, RDW Coeff of Cricket 14.1, Plt Count 214, MPV 12.2 H, Immature Gran % (Auto) 0.400, Neut % (Auto) 77.8 H, Lymph % (Auto) 11.9 L, [place] % (Auto) 8.8, Eos % (Auto) 0.9, Baso % (Auto) 0.2, Absolute Neuts (auto) 6.3, Absolute Lymphs (auto) 0.96, Nucleated RBC % 0 04/04/20 06:04: Sodium 142, Potassium 3.8, Chloride 109 H, Carbon Dioxide 30.0, Anion Gap 3 L, BUN 27 H, Creatinine 1.48 H, Estim Creat Clear Calc 35.12, Est GFR (MDRD) Af Amer 43 L, Est GFR (MDRD) Non-Af 36 L, BUN/Creatinine Ratio 18.2, Glucose 92, Calcium 9.3, Total Bilirubin 0.80, AST 18, ALT 19, Alkaline Phosphatase 74, Total Protein 5.2 L, Albumin 2.5 L, Globulin 2.7, Albumin/Globulin Ratio 0.9 Current Medications Acetaminophen (Tylenol) 650 mg PO Q6H PRN PRN PRN Reason: Pain Score 1-10/Temp > 100.7 F Al Hydroxide/Mg Hydroxide (Mylanta Ii) 30 ml PO Q6H PRN PRN PRN Reason: Gastric Burning Allopurinol (Zyloprim) 300 mg PO DAILY [facility] Last Admin: 04/04/20 08:02 Dose: 300 mg Documented by: Apixaban (Eliquis) 2.5 mg PO BID [facility] Last Admin: 04/04/20 08:02 Dose: 2.5 mg Documented by: Atenolol (Tenormin (Beta Ivan)) 25 mg PO BID [facility] Last Admin: 04/04/20 08:02 Dose: 25 mg Documented by: Atorvastatin Calcium (Lipitor) 10 mg PO QHS [facility] Last Admin: 04/03/20 21:50 Dose: 10 mg Documented by: Colchicine (Colchicine) 0.6 mg PO DAILY [facility] Last Admin: 04/04/20 08:04 Dose: 0.6 mg Documented by: Flecainide Acetate (Tambocor) 50 mg PO Q12 [facility] Last Admin: 04/04/20 08:02 Dose: 50 mg Documented by: Levothyroxine Sodium (Synthroid) 100 mcg PO MoTuWeThFrSa@0600 [facility] Last Admin: 04/04/20 05:56 Dose: 100 mcg Documented by: Ondansetron HCl (Zofran) 4 mg IV Q8H PRN PRN PRN Reason: NAUSEA/VOMITING Pantoprazole Sodium (Protonix) 40 mg PO DAILY [facility] Last Admin: 04/04/20 08:03 Dose: 40 mg Documented by: Paroxetine HCl (Paxil) 10 mg PO QHS [facility] Last Admin: 04/03/20 21:46 Dose: 10 mg Documented by: Psyllium Hydrophilic Mucilloid (Metamucil) 1 packet PO DAILY PRN PRN PRN Reason: Constipation Sodium Chloride () 10 - 40 ml IV UD PRN PRN Reason: SALINE FLUSH Last Admin: 04/03/20 18:24 Dose: 10 ml Documented by: Medical Necessity - Tobacco Use Smoking Status: Never smoker Tobacco Use: Non-smoker Assessment/Plan All Active Problems (Last Reviewed 03/19/20 @ 14:[address] Naina Llamas, DO) Upper GI bleeding (Acute) Acute blood loss anemia (Acute) Atrial fibrillation with rapid ventricular response (Acute) Dyspnea (Acute) Back pain (Acute) Debility (Acute) Shortness of breath (Acute) Left ankle sprain (Acute) Multiple falls (Acute) JESSICA (acute kidney injury) (Acute) Bradycardia (Acute) Confusion (Resolved) Esophageal stricture (Resolved) Expressive aphasia (Resolved) Hypoxia (Resolved) 1. Generalized debility - pt left TCU after being recommended to go elsewhere for ongoing therapy, however declined and went home. She fell 5x. Obtain PTOT evals. WBC resolved. No infectious etiology suspected. 2. Left ankle sprain - significant pain and swelling, no fx on xray. RICE therapy initiated. Avoid NSAIDs. Complicating #1. 3. Chronic Afib/RVR - RVR resolved. 4. JESSICA on CKDIII 2/2 dehydration - Resolved. stop fluids. resume lasix when appropriate at lower dose. 5. Recent acute BL PEs - continue eliquis 6. Hx GI bleed - monitor Hgb, however she needs to continue eliquis given recent PEs. Pt is on PPI. 7. Dementia - memory is poor and she has been mixing up her medications at home. 8. Chronic diastolic CHF - no exacerbation - off fluids, resume lasix when appropriate at lower dose. 9. Hx stroke - continue statin / eliquis. 10. Chronic hypoxic resp failure 2/2 COPD/CHF - no exacerbation. BL 2-3 lpm rest/exertion. Incentive spirometer and prn aerosols, avoid excessive albuterol. 11. hypothyroidism - synthroid. TSH normal. DVT ppx: toro NGUYEN planning: SNF This patient was seen by Popeye Jones PA-C under the supervision of Doctor Bain
[2020-04-04 14:03] LABS: Probe Check PASS; Specimen Processing Control PASS
--- NOTE | 2020-04-04 14:39 | CASEMGMT ---
Addendum entered by Nola Arevalo 04/04/20 15:23: SW has attempted multiple times to fax referral to [facility] with multiple fax numbers and haven't got fax to go through. SW placed a call to Daija at [facility] and updated her that at this time of day with fax not being able to go through, it is unlikely SW will get pre-cert today, pt will be at [facility] until tomorrow. SW in to speak with pt. SW updated pt on acceptance to [facility] pending insurance. SW updated pt that at this time of day it is unlikely pre-cert will be obtained, so pt will be at [facility] likely until tomorrow. Pt states understanding. SW still waiting for call back from Maritza at [facility] regarding additional fax numbers. Addendum entered by Nola Arevalo 04/04/20 14:59: SW attempted to fax twice the referral to [facility] [employer] at [phone] and it didn't go through. SW placed a call to Maritza at [facility] and left message again asking for a different fax number. Original Note: Social Work Note SW received call from Maritza at [facility] stating she never received clinicals. YIN updated Maritza that this worker has tried multiple times to fax and the fax is not going through. Maritza states to try fax [phone]. SW faxed clinicals to new fax number. SW has COVID results, pt tested negative. SW faxed COVID results and COVID screening tool to [facility]. Plan: [facility] pending pre-cert Nola Arevalo STITCHER STANDARD MACHINE, [employer]
--- NOTE | 2020-04-04 16:00 | CASEMGMT ---
Addendum entered by Nola Arevalo 04/04/20 16:37: Pt's designated person to see pt is her son Prakash. YIN did place a call to Prakash and update him on discharge and approval to [facility] today. Prakash states he was just on the phone with pt and pt told him discharge tomorrow. YIN explained that this worker did update her that it could be today or tomorrow and the discharge is in for pt to discharge today. SW updated Prakash that once transportation is arranged, he can be notified so he is aware of time. Prakash states understanding. YIN placed a call to [facility] and spoke with charge nurse to let Prakash know transportation time. Plan: [facility] today skilled Original Note: Social Work Note SW received call from Maritza at [facility] stating she approves for pt to admit to [facility]. YIN updated Maritza that pt should discharge either today or tomorrow to [facility]. Maritza states understanding. YIN placed a call to Daija at [facility] and left message that pre-cert has been obtained and pt could discharge today to [facility]. YIN updated physician that pre-cert has been obtained. YIN completed convalescent 7000 in [facility]. Original placed on pt's chart. Green sheet placed on pt's chart. SW in to speak with pt. YIN updated pt that pre-cert has been obtained and pt could actually discharge to [facility] today still. SW updated pt that it depends on what the doctor wants to do. Pt states understanding. YIN placed green sheet on chart. YIN updated charge nurse that pre-cert has been obtained, pt can discharge to [facility] if medically ready. Plan: [facility]VM once medically ready Nola Arevalo PROCESS SPECIALIST, [employer]UCKPOINTER CLE[employer]
--- NOTE | 2020-04-04 16:16 | PCM.TXEXTCAR ---
- Diet 04/03/20 16:49 Diet: Cardiac/Low Cholesterol Food consistency:: Regular Liquid Consistency:: Regular/Thin - Routine Orders/Code Status O2 Liters per Minute: 3 O2 Frequency: Continuous Routine Lab Work: BMP - in 5 days - Therapies Weight Bearing: Weight bearing as tolerated Extremity Affected:: Left Lower Physical Therapy: Eval and Treat Occupational Therapy: Eval and Treat - Problem/Diagnosis (1) Atrial fibrillation Status: Chronic Current Visit: Yes (2) COPD (chronic obstructive pulmonary disease) Status: Chronic Current Visit: Yes (3) Gout Status: Chronic Current Visit: No (4) Left ankle sprain Status: Acute Current Visit: Yes (5) Multiple falls Status: Acute Current Visit: Yes (6) JESSICA (acute kidney injury) Status: Acute Current Visit: Yes (7) Hyperlipidemia Status: Chronic Current Visit: No (8) Dementia Status: Chronic Current Visit: No (9) Hypertension Status: Chronic Current Visit: No (10) Chronic diastolic (congestive) heart failure Status: Chronic Current Visit: Yes (11) Chronic respiratory failure with hypoxia Status: Chronic Current Visit: No - Allergies/Procedures Done in Hospital Allergies/Adverse Reactions: Allergies adhesive Allergy (Verified 04/03/20 11:04) Rash irbesartan Allergy (Verified 04/03/20 11:04) Unknown solifenacin [From Vesicare] Allergy (Verified 04/03/20 11:04) Unknown sulindac [Sulindac] Allergy (Verified 04/03/20 11:04) Unknown atorvastatin [From Lipitor] Adverse Reaction (Verified 04/03/20 11:04) Unknown lisinopril Adverse Reaction (Verified 04/03/20 11:04) Other COUGH losartan potassium [From Cozaar] Adverse Reaction (Verified 04/03/20 11:04) Other metoprolol Adverse Reaction (Verified 04/03/20 11:04) GI Upset ramipril [From Altace] Adverse Reaction (Verified 04/03/20 11:04) Other tramadol Adverse Reaction (Verified 04/03/20 11:04) Unknown Procedures: None - Type of Care/Length of Stay Estimated LOS: Convalescent Care Less Than 30 days Type of Care Needed: Skilled Rehab Potential: Good Prognosis: Good - Additional Orders/Day of Discharge H&P will serve as current which was dated: 04/03/20 Day of Discharge: 04/04/20 - Dietary and Speech Recommendations Dietitian Recommendations/Changes: Will provide 120 cc ensure enlive w/ meals bid for increased nutrition d/t variable intake at times - Follow Up Care Primary Care Physician: Denny Romano Chi, MD [Primary Care Provider] -
--- NOTE | 2020-04-04 16:34 | PCM.DC.SUM ---
Discharge Date and Diagnosis - Problem List Patient Problems: Active and Suspected Problems (Last Reviewed 03/19/20 @ 14:[address] Naina Llamas DO) Debility (Acute) Left ankle sprain (Acute) Multiple falls (Acute) JESSICA (acute kidney injury) (Acute) Date of Admission: 04/03/20 Date of Discharge: 04/04/20 - Primary Discharge Diagnosis Acute Problems: Active Problems (Last Reviewed 03/19/20 @ 14:[address] Naina Llamas DO) Debility, recurrent falls JESSICA 2/2 dehydration Afib RVR 2/2 dehydration resolved Left ankle sprain - Secondary Discharge Diagnosis Chronic Problems: Chronic Problems (Last Reviewed 03/19/20 @ 14:[address] Naina Llamas DO) Pressure ulcer of right buttock, stage 2 (Chronic) Bilateral pulmonary embolism (Chronic) Chronic respiratory failure with hypoxia (Chronic) Gastric ulcer (Chronic) Stroke (Chronic) DVT (deep venous thrombosis) (Chronic) Atrial fibrillation (Chronic) Thoracic aortic aneurysm (Chronic) Chronic diastolic (congestive) heart failure (Chronic) COPD (chronic obstructive pulmonary disease) (Chronic) Gout (Chronic) Allergic rhinitis (Chronic) Hypokalemia (Chronic) Hyperlipidemia (Chronic) Obstructive sleep apnea (Chronic) Carotid stenosis (Chronic) Chronic kidney disease (Chronic) Dementia (Chronic) Meningioma (Chronic) Chronic diastolic heart failure (Chronic) Paroxysmal atrial fibrillation (Chronic) Diastolic CHF, acute (Chronic) Dyspnea on exertion (Chronic) Hyperparathyroidism (Chronic) Hypothyroidism (Chronic) Lymphomatoid papulosis (Chronic) Hypertension (Chronic) Obesity (Chronic) Right bundle branch block (Chronic) AV block, 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) GERD (gastroesophageal reflux disease) (Chronic) History of esophageal dilatation (Chronic) Anxiety and depression (Chronic) Thoracic aortic aneurysm (Chronic) 3.9 cm History of CVA (cerebrovascular accident) (Chronic) Hospital Course and Treatment Imaging Results: RAD/Ankle min 3 Views IMPRESSION: Soft tissue swelling. No demonstrated acute osseous injury. Operations: None Procedures: None Summary of Care Provided: Hospital course: The patient is a 80 year old F with pmhx with pmhx notably for recent diagnosis of acute PEs subsequently discharged to SNF, and DCd home from SNF 2 days prior to presentation who came back with multiple falls. The patient fell 5 times since going home. In the ER the patient had mild Afib RVR, JESSICA felt to be due to dehydration. She had injured her left ankle falling however the xray did not show fracture, felt to have sprain. She was admitted to the [facility] surg floor, lasix stopped, IV fluids provided. JESSICA and Afib RVR resolved with IV fluids. The following day she continued to have difficulty ambulating, was agreeable to SNF placement, and discharged to SNF in stable condition. Follow up with PCP as needed. This patient was seen by Popeye Jones PA-C under the supervision of Doctor Bain. [] Patient Problems: Active and Suspected Problems (Last Reviewed 03/19/20 @ 14:[address] Naina Llamas, DO) Debility (Acute) Left ankle sprain (Acute) Multiple falls (Acute) JESSICA (acute kidney injury) (Acute) - Physical Exam Vitals/I&O's: Vital Signs Temp Pulse Resp BP Pulse Ox 98.1 F 96 18 108/59 L 98 04/04/20 14:25 04/04/20 14:25 04/04/20 14:25 04/04/20 14:25 04/04/20 14:25 Oxygen Flow Rate (L/min) 3 Oxygen Delivery Method Nasal Cannula Weight: 167 lb 5.294 oz Body Mass Index (BMI) 32.3 Finger Stick Blood Glucose 132 Intake and Output for Last 24 Hours 04/02/20 04/03/20 04/04/20 23:59 23:59 23:59 Intake Total 240 / 240 1885 / 1885 Output Total 0 / 0 700 / 700 Balance 240 / 240 1185 / 1185 General: Alert, Oriented x3, Cooperative HEENT: Atraumatic, PERRLA, EOMI, Normocephalic Neck: Supple, No JVD, Negative Carotid Bruits Lungs: Clear to auscultation, Normal air movement Cardiovascular: Regular rate, No murmurs Abdomen: Bowel Sounds Present, Soft, Non Tender Extremities: No edema, Capillary Refill Less than 3 Seconds Skin: No rashes, No breakdown Musculoskeletal: No Tenderness to Palpation of Joints or Extremities Neurological: Cranial nerves II-XII grossly intact Psych/Mental Status: Normal Affect, Appropriate, Alert and oriented to time, place, person, mood and affect Laboratory Results 04/03/20 11:35: Total Bilirubin 0.70, Direct Bilirubin 0.18, AST 32, ALT 27, Alkaline Phosphatase 87, Total Protein 6.5, Albumin 3.3, Globulin 3.2 04/03/20 11:35: Magnesium 1.6, TSH 0.38 04/04/20 06:04: WBC 8.1, RBC 3.33 L, Hgb 10.1 L, Hct 33.3 L, MCV 100.0 H, MCH 30.3, MCHC 30.3 L, RDW Std Deviation 50.8 H, RDW Coeff of Cricket 14.1, Plt Count 214, MPV 12.2 H, Immature Gran % (Auto) 0.400, Neut % (Auto) 77.8 H, Lymph % (Auto) 11.9 L, [place] % (Auto) 8.8, Eos % (Auto) 0.9, Baso % (Auto) 0.2, Absolute Neuts (auto) 6.3, Absolute Lymphs (auto) 0.96, Nucleated RBC % 0 04/04/20 06:04: Sodium 142, Potassium 3.8, Chloride 109 H, Carbon Dioxide 30.0, Anion Gap 3 L, BUN 27 H, Creatinine 1.48 H, Estim Creat Clear Calc 35.12, Est GFR (MDRD) Af Amer 43 L, Est GFR (MDRD) Non-Af 36 L, BUN/Creatinine Ratio 18.2, Glucose 92, Calcium 9.3, Total Bilirubin 0.80, AST 18, ALT 19, Alkaline Phosphatase 74, Total Protein 5.2 L, Albumin 2.5 L, Globulin 2.7, Albumin/Globulin Ratio 0.9 04/04/20 12:05: COVID-19 (LUIS) Negative Current Medications Acetaminophen (Tylenol) 650 mg PO Q6H PRN PRN PRN Reason: Pain Score 1-10/Temp > 100.7 F Al Hydroxide/Mg Hydroxide (Mylanta Ii) 30 ml PO Q6H PRN PRN PRN Reason: Gastric Burning Allopurinol (Zyloprim) 300 mg PO DAILY [facility] Last Admin: 04/04/20 08:02 Dose: 300 mg Documented by: Apixaban (Eliquis) 2.5 mg PO BID [facility] Last Admin: 04/04/20 08:02 Dose: 2.5 mg Documented by: Atenolol (Tenormin (Beta Ivan)) 25 mg PO BID [facility] Last Admin: 04/04/20 08:02 Dose: 25 mg Documented by: Atorvastatin Calcium (Lipitor) 10 mg PO QHS [facility] Last Admin: 04/03/20 21:50 Dose: 10 mg Documented by: Colchicine (Colchicine) 0.6 mg PO DAILY [facility] Last Admin: 04/04/20 08:04 Dose: 0.6 mg Documented by: Flecainide Acetate (Tambocor) 50 mg PO Q12 [facility] Last Admin: 04/04/20 08:02 Dose: 50 mg Documented by: Levothyroxine Sodium (Synthroid) 100 mcg PO MoTuWeThFrSa@0600 [facility] Last Admin: 04/04/20 05:56 Dose: 100 mcg Documented by: Ondansetron HCl (Zofran) 4 mg IV Q8H PRN PRN PRN Reason: NAUSEA/VOMITING Pantoprazole Sodium (Protonix) 40 mg PO DAILY [facility] Last Admin: 04/04/20 08:03 Dose: 40 mg Documented by: Paroxetine HCl (Paxil) 10 mg PO QHS [facility] Last Admin: 04/03/20 21:46 Dose: 10 mg Documented by: Psyllium Hydrophilic Mucilloid (Metamucil) 1 packet PO DAILY PRN PRN PRN Reason: Constipation Sodium Chloride () 10 - 40 ml IV UD PRN PRN Reason: SALINE FLUSH Last Admin: 04/03/20 18:24 Dose: 10 ml Documented by: Discharge Diet: Low fat/ Low Cholesterol, 2000 mg Sodium Diet Discharge Activity: Return to Normal Activity Home Medications: Medications to take at Discharge Atorvastatin Calcium [Lipitor] 10 mg PO QHS 04/17/17 levothyroxine 100 mcg tablet 100 mcg PO DAILY 09/27/17 flecainide 50 mg tablet 50 mg PO Q12H #180 tab 09/10/19 allopurinol 300 mg tablet 300 mg PO DAILY 03/03/20 Colchicine 0.6 mg PO DAILY 03/04/20 Apixaban [Eliquis] 2.5 mg PO BID 04/03/20 Atenolol 25 mg PO BID 04/03/20 Pantoprazole Sodium 40 mg PO DAILY 04/03/20 Paroxetine [Paxil] 10 mg PO QHS 04/03/20 Acetaminophen [Tylenol Tablet] 650 mg PO Q6H PRN PRN tab 04/04/20 Albuterol Aerosols [Ventolin Aerosols] 2.5 mg INHALATION Q6H PRN PRN #1 vial 04/04/20 Following Prescrptions Were Given to Patient: Albuterol Aerosols [Ventolin Aerosols] 2.5 mg INHALATION Q6H PRN PRN #1 vial PRN Reason: Dyspnea Primary Care Physician: Denny Romano Chi, MD [Primary Care Provider] - Please follow up with your Primary Care Physician in: as needed Disposition: Home Minutes spent on discharge:: 35 Patient Condition:: Stable Medical Necessity - Tobacco Use Smoking Status: Never smoker Tobacco Use: Non-smoker Meaningful Use Info Meaningful Use Diagnoses (Choose all that apply): None applicable
--- NOTE | 2020-04-04 17:26 | CASEMGMT ---
Social Work Telephone call from Charge nurseJennifer. [facility] is requesting auth number prior to being willing to accept. Telephone call to Daija Hernandez. Daija states to need an auth number prior to being able to accept patient, unable to accept patient on verbal auth approval. Telephone call to Carolann Bryant. Able to obtain auth number of: [id number] for patient. Telephone call to Daija Hernandez. Auth number provided. Daija states to be able to accept patient. Transfer form and discharge instructions faxed to [facility]. Updated Charge nurse that patient is able to be discharged this evening to [facility]. Dewey REEVES, TRAVIS
--- NOTE | 2020-04-04 18:33 | NURSING ---
report called to W for discharge
== END 2020-04-04 18:47 | disposition skilled nursing facility (03) | DRG 563 ==
LOC: ED 12:24 → MS3 15:11
PROVIDERS: Admitting Provider Internal Medicine; Emergency Provider Physician Assistant Medical; PCP Family Medicine Geriatric Medicine; Visit Provider Internal Medicine
DX: S93.402A Sprain of unspecified ligament of left ankle, initial encounter (principal); N17.9 Acute kidney failure, unspecified; I13.0 Hypertensive heart and chronic kidney disease with heart failure and stage 1 through stage 4 chronic kidney disease, or unspecified chronic kidney disease; I50.32 Chronic diastolic (congestive) heart failure; J96.11 Chronic respiratory failure with hypoxia; E86.0 Dehydration; F03.90 Unspecified dementia, unspecified severity, without behavioral disturbance, psychotic disturbance, mood disturbance, and anxiety; W19.XXXA Unspecified fall, initial encounter; Y93.9 Activity, unspecified; Y92.9 Unspecified place or not applicable; I48.0 Paroxysmal atrial fibrillation; E78.5 Hyperlipidemia, unspecified; N18.3 Chronic kidney disease, stage 3 (moderate); R29.6 Repeated falls; J44.9 Chronic obstructive pulmonary disease, unspecified; G47.33 Obstructive sleep apnea (adult) (pediatric); E03.9 Hypothyroidism, unspecified; E21.3 Hyperparathyroidism, unspecified; E66.9 Obesity, unspecified; K21.9 Gastro-esophageal reflux disease without esophagitis; Z68.32 Body mass index [BMI] 32.0-32.9, adult; Z86.711 Personal history of pulmonary embolism; F32.9 Major depressive disorder, single episode, unspecified; F41.9 Anxiety disorder, unspecified; M19.90 Unspecified osteoarthritis, unspecified site
CPT/HCPCS: 36415; 73610; 80048; 80053; 80076; 81001; 83735; 84443; 85025; 87635; 93005; 94799; 97162; 97166; 97802; 99284; J7030; P9612; A4216; U0003

== ENCOUNTER 2020-05-14 08:33 | Inpatient (IN) | payer MEDICARE, SELFPAY ==
[2020-04-03 16:34] VITALS: BMI 32.3
[2020-05-14 08:34] VITALS: BP 104/83; PULSE 97; RESP 18; TEMP 36.6; O2SAT 99; BMI 34.0
--- NOTE | 2020-05-14 08:39 | RAD_ITS ---
STUDY: X-RAY CHEST REASON FOR EXAM: Female, 80 years old. Chest pain. TECHNIQUE: Single AP portable view of the chest. COMPARISON: 03/25/2020 FINDINGS: There is hyperinflation of the lungs consistent with chronic obstructive lung disease (COPD). Hypoventilatory changes in lung bases. Improved atelectatic changes in right lung base. No new infiltrate is seen. There is no demonstrated pleural abnormality. Normal size heart. Normal mediastinum and awais. Normal visualized pulmonary arteries. There is atherosclerotic calcification of the aortic arch with tortuosity. The osseous structures are unchanged. There is no demonstrated abnormality of the visualized soft tissue structures of the upper abdomen. RAD/Chest 1 View (Portable) IMPRESSION: COPD changes. No active pulmonary disease. Electronically Signed: Jerod Card MD at 9:41 EDT Tel , Service support ,
--- NOTE | 2020-05-14 08:39 | CT_ITS ---
STUDY: CT BRAIN WITHOUT CONTRAST REASON FOR EXAM: Female, 80 years old. MULTIPLE FALLS THIS AM RADIATION DOSAGE (If Supplied By Facility): CTDIvol = ( 44.99 ) mGy, DLP = ( 798.92 ) mGycm TECHNIQUE: Transaxial CT imaging of the brain was performed without administration of intravenous contrast material. Individualized dose optimization techniques were used for this CT. COMPARISON: 11/22/2015 FINDINGS: Normal soft tissue structures. Normal calvarium. There is mild cerebral atrophy with widening of the extra-axial spaces and ventricular dilatation. There are areas of decreased attenuation within the white matter tracts of the supratentorial brain, consistent with microvascular disease changes worse than the previous exam. Normal basal ganglia and thalami. Normal brainstem. Normal cerebellum. There is no intracranial hemorrhage. There are no findings of an acute ischemic infarction. There is mild mucosal thickening of the left maxillary sinus. CT/Brain/Head without Contrast IMPRESSION: Chronic involutional changes of the brain. No acute intracranial process. Electronically Signed: Jerod Card MD at 9:50 EDT Tel , Service support ,
--- NOTE | 2020-05-14 08:40 | EKG12_ITS ---
Test Reason : WEAKNESS Blood Pressure : / mmHG Vent. Rate : 101 BPM Atrial Rate : 101 BPM P-R Int : 000 ms QRS Dur : 178 ms QT Int : 368 ms P-R-T Axes : 000 102 -26 degrees QTc Int : 477 ms Atrial fibrillation with rapid ventricular response Right bundle branch block Abnormal ECG Confirmed by HOLLY CURTIS, SARAH ([id number]), restaurant expeditor MARIALUISA SWENSON ([id number]) on 05/18/2020 10:01:30 AM Referred By: LOI Confirmed By:SARAH BARRERA MD
--- NOTE | 2020-05-14 08:45 | ED.VIS.GEN ---
History of Present Illness Chief Complaint: Fall Informant: Patient Narrative: Patient is an 80-year-old female with history including atrial fibrillation, pulmonary embolism, (on Eliquis) CKD, right bundle branch block and multiple falls presenting from home for multiple falls. Patient was actually discharged [facility]. Patient had been placed there because of weakness and falls. She is at home with her who is elderly. Her son comes by to help but does not live there. Patient does not think she hit her head for the falls. She states her last fall she was on the ground for about 30 minutes. She states she is falling because her legs are giving out on her. She denies any chest pain, shortness of breath, difficulty breathing or any other new symptoms. She denies any leg pain to states her legs are weak and give out on her. Patient wears 2 and half liters at baseline. Past Medical History - Allergies and Home Meds Allergies/Adverse Reactions: Allergies adhesive Allergy (Verified 05/14/20 08:49) Rash irbesartan Allergy (Verified 05/14/20 08:49) Unknown solifenacin [From Vesicare] Allergy (Verified 05/14/20 08:49) Unknown sulindac [Sulindac] Allergy (Verified 05/14/20 08:49) Unknown lisinopril Adverse Reaction (Verified 05/14/20 08:49) Other COUGH losartan potassium [From Cozaar] Adverse Reaction (Verified 05/14/20 08:49) Other metoprolol Adverse Reaction (Verified 05/14/20 08:49) GI Upset ramipril [From Altace] Adverse Reaction (Verified 05/14/20 08:49) Other tramadol Adverse Reaction (Verified 05/14/20 08:49) Unknown Past Medical History: - - Chronic diastolic heart failure, CKD, dementia, GERD, hyperlipidemia, hyper parathyroid, hypertension, hypothyroid, RODOLFO, proximal atrial fibrillation, right bundle branch block, thoracic aortic aneurysm, hyperlipidemia, COPD Surgical History: appendectomy, cholecystectomy, herniorrhaphy - With mesh, extensive per patient, total hip arthroplasty - Right, total knee arthroplasty - Bilateral, - - Esophageal dilation Smoking Status: Never smoker - Family History Paternal Family History: Family History (Last Reviewed 04/03/20 @ 16:40 by Popeye FRANCOIS, PA) Father CVA (cerebral vascular accident) Mother CAD (coronary artery disease) Congestive heart failure Family History: Reports: Stroke, No pertinent history - No history of lung disease or autoimmune disease Maternal Family History: Family History (Last Reviewed 04/03/20 @ 16:40 by Popeye FRANCOIS, PA) Father CVA (cerebral vascular accident) Mother CAD (coronary artery disease) Congestive heart failure Family History: Reports: Stroke, No pertinent history - No history of lung disease autoimmune disease Review of Systems General: Denies: Chills, Fever, Sweats Eyes: Denies: Visual changes - bilaterally, Diplopia ENT: Denies: Rhinorrhea, Sore throat Cardiovascular: Denies: Chest pain, Palpitations Respiratory: Denies: Dyspnea, Cough, Dyspnea on exertion Gastrointestinal: Denies: Abdominal pain, Nausea, Vomiting, Diarrhea, Melena, Hematochezia Genitourinary: Denies: Dysuria, Hematuria, Frequency Musculoskeletal: Denies: Back pain, Extremity Pain Skin: Denies: Rash, Wounds Neurological: Reports: Weakness - Leg weakness bilateral. Denies: Headache, Numbness Psych: Denies: Depression, Anxiety Physical Exam Vital Signs/Narrative: Vital Signs Temp Pulse Resp BP Pulse Ox 05/14/20 08:34 98 F 97 18 104/83 H 99 Inital Vital Signs reviewed: Yes General: Well nourished, Well developed, No Acute Distress Head: Normocephalic, Atraumatic Eyes: Perrl, EOMI ENT: Moist mucous membranes, No rhinorrhea Neck: Supple, Nontender, No JVD Cardiovascular: No murmurs, Irregular, Tachycardia Respiratory: No distress, CTA bilaterally, Chest nontender Abdomen: Soft, Nontender, Nondistended, Normal bowel sounds Back: Nontender, Normal Inspection Extremities: Nontender, No edema. Negative for: Tenderness, Edema, Calf Tenderness Skin: Normal color, No rash Neurological: Alert, Oriented x3, Cranial nerves II-XII grossly intact, Normal Strength, Normal Sensation Psychological: Normal affect, Normal Mood Diagnostic/Tx/Re-eval Clinical Impression(s) from Imaging Studies Brain CT 05/14/20 08:39 IMPRESSION: Chronic involutional changes of the brain. No acute intracranial process. Electronically Signed: Jerod Card MD at 9:50 EDT Tel , Service support , Chest X-Ray 05/14/20 08:39 IMPRESSION: COPD changes. No active pulmonary disease. Electronically Signed: Jerod Card MD at 9:41 EDT Tel , Service support , Laboratory Data 05/14/20 05/14/20 05/14/20 08:45 08:45 08:45 WBC 8.3 RBC 3.65 L Hgb 11.1 L Hct 35.8 L MCV 98.1 MCH 30.4 MCHC 31.0 L RDW Std Deviation 57.0 H RDW Coeff of Cricket 15.8 H Plt Count 236 MPV 12.6 H Immature Gran % (Auto) 0.600 Neut % (Auto) 74.3 H Lymph % (Auto) 13.8 L Mcclain % (Auto) 9.9 Eos % (Auto) 1.0 Baso % (Auto) 0.4 Absolute Neuts (auto) 6.2 Absolute Lymphs (auto) 1.15 Nucleated RBC % 0 PT 16.8 H INR 1.4 APTT 30.3 Sodium 138 Potassium 3.9 Chloride 99 Carbon Dioxide 37.0 H Anion Gap 2 L BUN 33 H Creatinine 1.55 H Estim Creat Clear Calc 33.75 Est GFR (MDRD) Af Amer 41 L Est GFR (MDRD) Non-Af 34 L BUN/Creatinine Ratio 21.3 H Glucose 105 Calcium 10.3 H Total Creatine Kinase 100 Troponin I < 0.015 Urine Color Urine Clarity Urine pH Ur Specific [place] Urine Protein Urine Glucose (UA) Urine Ketones Urine Occult Blood Urine Nitrite Urine Bilirubin Urine Urobilinogen Ur Leukocyte Esterase Urine RBC Urine WBC Ur Squamous Epith Cells Urine Bacteria Hyaline Casts Urine Mucus 05/14/20 10:15 WBC RBC Hgb Hct MCV MCH MCHC RDW Std Deviation RDW Coeff of Cricket Plt Count MPV Immature Gran % (Auto) Neut % (Auto) Lymph % (Auto) Mcclain % (Auto) Eos % (Auto) Baso % (Auto) Absolute Neuts (auto) Absolute Lymphs (auto) Nucleated RBC % PT INR APTT Sodium Potassium Chloride Carbon Dioxide Anion Gap BUN Creatinine Estim Creat Clear Calc Est GFR (MDRD) Af Amer Est GFR (MDRD) Non-Af BUN/Creatinine Ratio Glucose Calcium Total Creatine Kinase Troponin I Urine Color Yellow Urine Clarity Clear Urine pH 5.0 Ur Specific [place] 1.010 Urine Protein 15 H Urine Glucose (UA) Normal Urine Ketones Negative Urine Occult Blood Negative Urine Nitrite Negative Urine Bilirubin Negative Urine Urobilinogen Normal Ur Leukocyte Esterase 25 H Urine RBC 0 SEEN Urine WBC 0-5 SEEN Ur Squamous Epith Cells 0 SEEN Urine Bacteria RARE Hyaline Casts 5-10 SEEN Urine Mucus RARE - Rhythm Strip Rhythm Strip: A-fib Rate: 101 Ectopy: None - EKG Initial EKG Interpretation: Atrial Fibrillation, RBBB, - - She will fibrillation at a rate of 101 with apparent conduction Right bundle branch block Normal axis T wave inversions in V2 and V3 Widening of the QRS complex Compared to prior EKG on 04/03/2020 patient is no acute changes - Medical Decision Making Patient is evaluated for generalized weakness and recurrent falls. She not appear to have any injuries from the falls. She is otherwise at her baseline. Patient was discharged home from rehab yesterday because she timed out of her rehab stay per insurance. Patient lives with her elderly and son does not feel safe with her being home as she has multiple falls. She does not appear to have any injuries or laboratory abnormalities on my evaluation in the ER. For placement as I do not think she is safe to be at home. Patient and son are very much in agreement with this. ED Disposition - Plan for ED Patient: Disposition: Acute Care Hospital [facility] Diagnosis: Multiple falls, Generalized weakness, Debility
[2020-05-14 08:56] LABS: Absolute Lymphocyte Count 1.15 X10^3/uL (0.83-4.51); Absolute Neutrophil Count 6.2 X10^3/uL (2.0-7.7); Basophil# 0.03 X10^3/uL; Basophil% 0.4 % (0-1); Eosinophil# 0.08 X10^3/uL; Hematocrit 35.8 % (37-47); Hemoglobin 11.1 g/dL (12.0-15.0); Lymphocyte # 1.15 X10^3/ul (4.0); Lymphocyte % 13.8 % (19-41); Mean Corpuscular Hgb 30.4 pg (27.0-32.0); Mean Corpuscular Volume 98.1 fL (81-99); Mean Platelet Vol. 12.6 fl (6.2-12.0); Monocyte# 0.82 X10^3/uL; Monocyte% 9.9 % (0-10); NRBC Flagged by Analyzer 0 % (0-5); Neutrophil # 6.18 X10^3/uL (2.7-7.7); Neutrophil % 74.3 % (47-70); Platelet Count 236 K/mm3 (150-450); RBC Distribution Width CV 15.8 % (11.6-14.6); Red Blood Count 3.65 M/mm3 (4.2-5.4); White Blood Count 8.3 K/mm3 (4.4-11.0)
[2020-05-14 09:04] LABS: International Normalized Ratio 1.4; Prothrombin Time (Protime)PT. 16.8 SECONDS (11.7-14.9)
[2020-05-14 09:05] LABS: Partial Thromboplast Time 30.3 Seconds (24.1-36.2)
[2020-05-14 09:14] LABS: Anion Gap 2 (5-15); BUN 33 mg/dL (7-18); BUN/Creat Ratio 21.3 RATIO (10-20); CPK Total, Creatine Kinase 100 U/L (26-192); Calcium,Total 10.3 mg/dL (8.5-10.1); Chloride 99 mmol/L (98-107); Creatinine, Serum 1.55 mg/dL (0.55-1.02); EST Glomerular Filtration Rate 34 mL/min (>60); Est Glom Filt Rate - Afr Amer 41 mL/min (>60); Estimated Creatinine Clearance 33.75 ml/min; Glucose 105 mg/dL (74-106); Potassium 3.9 mmol/L (3.5-5.1); Sodium Level 138 mmol/L (136-145)
[2020-05-14 10:18] LABS: Red Blood Cells-Urine 0 SEEN /hpf (0-5); Squamous Epithelial Cells - UA 0 SEEN /hpf (5-10)
[2020-05-14 10:22] LABS: Color, Urine Yellow (Yellow); Glucose, Dipstick Normal (Normal); Ketone-Dipstick Negative (Negative); Leukocyte Esterase-Dipstick 25 /ul (Negative); Nitrite-Dipstick Negative (Negative); Occult Blood-Urine Negative /ul (Negative); Protein-Dipstick 15 mg/dl (Negative); Urine Bilirubin Dipstick Negative (Negative); Urine Clarity Clear (Clear); Urine Urobilinogen Normal (Normal)
[2020-05-14 10:29] LABS: Bacteria RARE /hpf (None Seen); Hyaline Cast 5-10 SEEN /lpf (0-5); Mucous, Urine RARE /hpf (<or=2+); White Blood Cells 0-5 SEEN /hpf (0-5)
--- NOTE | 2020-05-14 10:57 | NURSING ---
NORA, ATTORNEY RECRUITER, IN ROOM
--- NOTE | 2020-05-14 11:15 | HP.PCM_ITS ---
History of Present Illness Date of Admission: 05/14/20 Chief Complaint: Mechanical falls. The patient is a 80 year old F with an extensive past medical history as outlined which includes A. fib and recurrent PEs, on Eliquis as well as CKD and right bundle branch block and a history of multiple falls. Patient was just discharged in a [facility] facility on 05/13/2020. She had been today on account of weakness and falls. She was discharged home and went home yesterday. At home, she was too weak to ambulate by herself and fell several times. She lives with her who is also elderly and has a son who comes by to help but does not live with her. She fell and was on the ground for about 30 min utes. She says her legs keep on giving out and she also complains of left knee pain. Review of symptoms otherwise negative. She denied any lightheadedness, dizziness, palpitations, nausea vomiting or diarrhea. Review of systems otherwise negative. On admission, she was found to have pulse rate of 110 with respiratory rate of 20, temperature of 98 and blood pressure of 103/69. Chemistry showed creatinine of 1.55 initial troponin was negative. CBC was essentially unremarkable. Chest x-ray showed no acute cardiopulmonary process and CT of the brain showed chronic involutional changes with no acute intracranial process. She has been admitted to be managed for debility due to recurrent falls and family is open to long-term placement [] Past Medical History Past Medical History (Chronic Problems): Chronic Problems (Last Reviewed 03/19/20 @ 14:[address] Naina Llamas, DO) Pressure ulcer of right buttock, stage 2 (Chronic) Bilateral pulmonary embolism (Chronic) Chronic respiratory failure with hypoxia (Chronic) Gastric ulcer (Chronic) Stroke (Chronic) DVT (deep venous thrombosis) (Chronic) Atrial fibrillation (Chronic) Thoracic aortic aneurysm (Chronic) Chronic diastolic (congestive) heart failure (Chronic) COPD (chronic obstructive pulmonary disease) (Chronic) Gout (Chronic) Allergic rhinitis (Chronic) Hypokalemia (Chronic) Hyperlipidemia (Chronic) Obstructive sleep apnea (Chronic) Carotid stenosis (Chronic) Chronic kidney disease (Chronic) Dementia (Chronic) Meningioma (Chronic) Chronic diastolic heart failure (Chronic) Paroxysmal atrial fibrillation (Chronic) Diastolic CHF, acute (Chronic) Dyspnea on exertion (Chronic) Hyperparathyroidism (Chronic) Hypothyroidism (Chronic) Lymphomatoid papulosis (Chronic) Hypertension (Chronic) Obesity (Chronic) Right bundle branch block (Chronic) AV block, 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 Naina Llamas, DO) Hyperlipidemia (Chronic) E78.5 Obstructive sleep apnea (Chronic) G47.33 Carotid stenosis (Chronic) I65.29 Chronic kidney disease (Chronic) N18.9 Dementia (Chronic) F03.90 Meningioma (Chronic) D32.9 Chronic diastolic heart failure (Chronic) I50.32 Paroxysmal atrial fibrillation (Chronic) I48.0 Diastolic CHF, acute (Chronic) I50.31 Dyspnea on exertion (Chronic) R06.09 Hyperparathyroidism (Chronic) E21.3 Hypothyroidism (Chronic) E03.9 Lymphomatoid papulosis (Chronic) C86.6 Hypertension (Chronic) I10 Obesity (Chronic) E66.9 Right bundle branch block (Chronic) I45.10 AV block, 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) I44.0 GERD (gastroesophageal reflux disease) (Chronic) K21.9 Anxiety and depression (Chronic) F41.9, F32.9 Thoracic aortic aneurysm (Chronic) I71.2 3.9 cm History of CVA (cerebrovascular accident) (Chronic) Z86.73 Osteoarthritis M19.90 Allergies adhesive Allergy (Verified 05/14/20 08:49) Rash irbesartan Allergy (Verified 05/14/20 08:49) Unknown solifenacin [From Vesicare] Allergy (Verified 05/14/20 08:49) Unknown sulindac [Sulindac] Allergy (Verified 05/14/20 08:49) Unknown atorvastatin [From Lipitor] Adverse Reaction (Verified 05/14/20 08:49) Unknown lisinopril Adverse Reaction (Verified 05/14/20 08:49) Other COUGH losartan potassium [From Cozaar] Adverse Reaction (Verified 05/14/20 08:49) Other metoprolol Adverse Reaction (Verified 05/14/20 08:49) GI Upset ramipril [From Altace] Adverse Reaction (Verified 05/14/20 08:49) Other tramadol Adverse Reaction (Verified 05/14/20 08:49) Unknown Home Medications: Ambulatory Orders Medication Instructions Recorded Atorvastatin Calcium [Lipitor] 10 mg PO QHS 04/17/17 levothyroxine 100 mcg tablet 100 mcg PO DAILY 09/27/17 flecainide 50 mg tablet 50 mg PO Q12H #180 tab 09/10/19 allopurinol 300 mg tablet 300 mg PO DAILY 03/03/20 Colchicine 0.6 mg PO DAILY 03/04/20 Apixaban [Eliquis] 2.5 mg PO BID 04/03/20 Pantoprazole Sodium 40 mg PO DAILY 04/03/20 Paroxetine [Paxil] 10 mg PO QHS 04/03/20 Acetaminophen [Tylenol Tablet] 650 mg PO Q6H PRN PRN tab 04/04/20 Albuterol Aerosols [Ventolin 2.5 mg INHALATION Q6H PRN PRN #1 04/04/20 Aerosols] vial furosemide 20 mg tablet 20 mg PO DAILY 04/20/20 Loperamide [Imodium] 2 mg PO Q6H PRN PRN 05/14/20 Potassium Chloride 10 meq PO BID 05/14/20 Surgical History: Surgical History (Last Reviewed 03/19/20 @ 14:[address] 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: - - Tubal ligation Smoking Status: Never smoker - *Family History Paternal Family History: Family History (Last Reviewed 04/03/20 @ 16:40 by ALESSANDRO Lomeli) Father CVA (cerebral vascular accident) Mother CAD (coronary artery disease) Congestive heart failure History Items: Stroke, No pertinent history - No history of lung disease or autoimmune disease Maternal Family History: Family History (Last Reviewed 04/03/20 @ 16:40 by Popeye FRANCOIS PA) Father CVA (cerebral vascular accident) Mother CAD (coronary artery disease) Congestive heart failure History Items: Stroke, No pertinent history - No history of lung disease autoimmune disease Review of Systems Constitutional: Reports: Weakness, Fatigue. Denies: Chills, Fever, Malaise, Weight Change Eyes: Denies: Blurred vision HEENT: Denies: Head Aches, Sinus Congestion, Sinus Drainage Cardiovascular: Denies: Chest Pain, Palpitations Respiratory: Denies: Cough, Shortness of breath at rest, Sputum production Gastrointestinal: Denies: Abdominal Pain, Nausea, Vomiting Genitourinary: Denies: Dysuria Musculoskeletal: Reports: Joint Pain - elft knee pain. Denies: Arm Pain Skin: Denies: Rash, Wounds Neurological: Denies: Numbness, Tingling, Focal weakness Psychiatric: Denies: Anxiety, Depression, Homicidal Ideations, Suicidal Ideations Hematologic/ Lymphatic: Denies: Easy Bruising, Easy Bleeding VTE Information - Inpt Only VTE Present on Admission: No VTE Pharm Prophylaxis ordered?: Yes - Physical Exam Vitals/I&O's: Vital Signs Temp Pulse Resp BP Pulse Ox 98 F 97 18 104/83 H 99 05/14/20 08:34 05/14/20 08:34 05/14/20 08:34 05/14/20 08:34 05/14/20 08:34 Oxygen Flow Rate (L/min) 2.5 Oxygen Delivery Method Nasal Cannula Weight: 168 lb 6.931 oz Body Mass Index (BMI) 34.0 Finger Stick Blood Glucose 132 General: Alert, Oriented x3, Cooperative, No apparent distress HEENT: Atraumatic, PERRLA, EOMI, Normocephalic Oral: Dry Mucosa Neck: Supple, No JVD, Negative Carotid Bruits Lungs: Clear to auscultation, Normal air movement, No rhonchi, No wheeze, No rales Cardiovascular: Normal S1, Normal S2, No murmurs, Irregular Rate - afib, mild tachycardia Abdomen: Bowel Sounds Present, Soft, Non Tender Extremities: No clubbing, No cyanosis, No edema, Capillary Refill Less than 3 Seconds Skin: No rashes, No breakdown Musculoskeletal: - - left knee mildly swollen, minimally tender to nisa Lymphatic: No Cervical, Supraclavicular, or Inguinal Adenopathy Neurological: Cranial nerves II-XII grossly intact, Neuro grossly intact, Motor Exam 5/5 strength throughout Psych/Mental Status: Normal Affect, Appropriate, Alert and oriented to time, place, person, mood and affect Laboratory Results 05/14/20 08:45: WBC 8.3, RBC 3.65 L, Hgb 11.1 L, Hct 35.8 L, MCV 98.1, MCH 30.4, MCHC 31.0 L, RDW Std Deviation 57.0 H, RDW Coeff of Cricket 15.8 H, Plt Count 236, MPV 12.6 H, Immature Gran % (Auto) 0.600, Neut % (Auto) 74.3 H, Lymph % (Auto) 13.8 L, [place] % (Auto) 9.9, Eos % (Auto) 1.0, Baso % (Auto) 0.4, Absolute Neuts (auto) 6.2, Absolute Lymphs (auto) 1.15, Nucleated RBC % 0 05/14/20 08:45: PT 16.8 H, INR 1.4, APTT 30.3 05/14/20 08:45: Sodium 138, Potassium 3.9, Chloride 99, Carbon Dioxide 37.0 H, Anion Gap 2 L, BUN 33 H, Creatinine 1.55 H, Estim Creat Clear Calc 33.75, Est GFR (MDRD) Af Amer 41 L, Est GFR (MDRD) Non-Af 34 L, BUN/Creatinine Ratio 21.3 H , Glucose 105, Calcium 10.3 H, Total Creatine Kinase 100, Troponin I < 0.015 05/14/20 10:15: Urine Color Yellow, Urine Clarity Clear, Urine pH 5.0, Ur Specific [place] 1.010, Urine Protein 15 H, Urine Glucose (UA) Normal, Urine Ketones Negative, Urine Occult Blood Negative, Urine Nitrite Negative, Urine Bilirubin Negative, Urine Urobilinogen Normal, Ur Leukocyte Esterase 25 H, Urine RBC 0 SEEN, Urine WBC 0-5 SEEN, Ur Squamous Epith Cells 0 SEEN, Urine Bacteria RARE, Hyaline Casts 5-10 SEEN, Urine Mucus RARE Diagnostic Data Brain CT 05/14/20 08:39 IMPRESSION: Chronic involutional changes of the brain. No acute intracranial process. Electronically Signed: Jerod Card MD at 9:50 EDT Tel , Service support , Chest X-Ray 05/14/20 08:39 IMPRESSION: COPD changes. No active pulmonary disease. Electronically Signed: Jerod Card MD at 9:41 EDT Tel , Service support , Assessment/Plan All Active Problems (Last Reviewed 03/19/20 @ 14:[address] Naina Llamas, DO) Upper GI bleeding (Acute) Acute blood loss anemia (Acute) Atrial fibrillation with rapid ventricular response (Acute) Dyspnea (Acute) Back pain (Acute) Debility (Acute) Shortness of breath (Acute) Left ankle sprain (Acute) Multiple falls (Acute) JESSICA (acute kidney injury) (Acute) Bradycardia (Acute) Confusion (Resolved) Esophageal stricture (Resolved) Expressive aphasia (Resolved) Hypoxia (Resolved) 80 y/o admitted with a complaint of mechanical falls # Debility due to recurrent mechanical falls * admit to [facility] * PT/OT consult * fall precautions * get xray of left knee as shes complaining of left knee pain. Depending on findings, consult orthopedics. * #Afib: mildly tachycardic. On flecainide. hold eliquis for today o/a of swollen left knee and history of mechanical falls. # Hypothyroidism: on synthroid # Gout: on allopurinol and colchicine. # CKD: Cr is 1.55. baseline is ~ 1.2, though she was 0.87 on 04/18/2020. Hydrate gently with IV fluid. HFpEF: not in exacerbation. on PO lasix 20mg daily # Hyperlipidemia: on statin # Thoracic aortic aneurysm: stable #History of recurrent PE: Eliquis on hold for today until x-ray of the knee is evaluated to see if she will need a shot to help with the pain. DVT prophylaxis: Lovenox; hold eliquis o.a of severe left knee pain which may require a knee injection by orthopedics. CODE STATUS: DNRCCA no intubation * Patient and son counseled extensively about different types of CODE STATUS including full code, DNR CCA and DNR CCA. Patient elects to be DNRCCA- no intubation. * Total [id number] time 16 minutes. OBSV E&M: 01680 Initial observation care L2 Procedures: 64896 Advncd Care Plan 30 Min
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
--- NOTE | 2020-05-14 11:17 | NURSING ---
MED SURG FALLS, WEAKNESS CHARLES
[2020-05-14 11:28] VITALS: BP 103/69; PULSE 110; RESP 20; TEMP 36.6; O2SAT 99
[2020-05-14 12:24] VITALS: BMI 32.5
--- NOTE | 2020-05-14 12:50 | RAD_ITS ---
STUDY: X-RAY - LEFT KNEE REASON FOR EXAM: Female, 80 years old. LEFT KNEE PAIN AND SWELLING TECHNIQUE: 3 view(s) of the knee. COMPARISON: None. FINDINGS: Status post total left knee replacement. The hardware components are well aligned. Mild suprapatellar effusion is noted. RAD/Knee 3 Views IMPRESSION: Status post total left knee replacement. Mild effusion. Electronically Signed: Sunny Leon DO at 16:09 EDT Tel [phone], Service support ,
[2020-05-14 15:30] VITALS: BP 135/86; PULSE 100; RESP 18; TEMP 36.7; O2SAT 97
[2020-05-14] MEDS: Acetaminophen 325 MG Tablet 650 MG PO (18:41)
[2020-05-14 21:08] VITALS: BP 98/60; PULSE 113; RESP 18; TEMP 36.7; O2SAT 98
[2020-05-14] MEDS: Atorvastatin Calcium 10 MG Tablet PO (21:15)
[2020-05-14] MEDS: Flecainide 100 MG Tablet 50 MG PO (21:15)
[2020-05-14] MEDS: PARoxetine 10 MG Tablet PO (21:15)
[2020-05-14 23:42] VITALS: BP 105/59; PULSE 96; RESP 18; TEMP 36.5; O2SAT 98
[2020-05-15 05:42] VITALS: BP 108/71; PULSE 93; RESP 18; TEMP 36.6; O2SAT 100
[2020-05-15] MEDS: Acetaminophen 325 MG Tablet 650 MG PO ×3 (05:46→21:07)
[2020-05-15 07:19] LABS: Absolute Lymphocyte Count 1.13 X10^3/uL (0.83-4.51); Absolute Neutrophil Count 4.6 X10^3/uL (2.0-7.7); Basophil# 0.03 X10^3/uL; Basophil% 0.5 % (0-1); Eosinophils% 1.5 % (0-5); Hematocrit 32.2 % (37-47); Lymphocyte # 1.13 X10^3/ul (4.0); Lymphocyte % 17.1 % (19-41); Mean Corp Hgb Conc 31.1 g/dL (32-36); Mean Corpuscular Hgb 30.4 pg (27.0-32.0); Mean Corpuscular Volume 97.9 fL (81-99); Mean Platelet Vol. 12.6 fl (6.2-12.0); Monocyte# 0.79 X10^3/uL; Monocyte% 11.9 % (0-10); NRBC Flagged by Analyzer 0 % (0-5); Neutrophil # 4.55 X10^3/uL (2.7-7.7); Neutrophil % 68.7 % (47-70); Platelet Count 180 K/mm3 (150-450); RBC Distribution Width CV 15.8 % (11.6-14.6); RBC Distribution Width SD 55.8 fl (35.1-43.9); Red Blood Count 3.29 M/mm3 (4.2-5.4); White Blood Count 6.6 K/mm3 (4.4-11.0)
--- NOTE | 2020-05-15 07:44 | PN_ITS ---
Patient Problems: Active and Suspected Problems (Last Reviewed 03/19/20 @ 14:[address] Naina Llamas, DO) Debility (Acute) Multiple falls (Acute) Generalized weakness (Acute) Subjective: Patient seen and examined. Left knee pain is much better today, and she has no complaints. She has remained hemodynamically stable. She is awaiting placement. Vitals/I&O's: Vital Signs Temp Pulse Resp BP Pulse Ox 97.9 F 93 18 108/71 100 05/15/20 05:42 05/15/20 05:42 05/15/20 05:42 05/15/20 05:42 05/15/20 05:42 Oxygen Flow Rate (L/min) 2.5 Oxygen Delivery Method Nasal Cannula Weight: 160 lb 14.999 oz Body Mass Index (BMI) 32.5 Finger Stick Blood Glucose 132 Intake and Output for Last 24 Hours 05/13/20 05/14/20 05/15/20 23:59 23:59 23:59 Intake Total 400 / 400 300 / 300 Output Total 700 / 700 200 / 200 Balance -300 / -300 100 / 100 General: Alert, Oriented x3, Cooperative, No apparent distress HEENT: Atraumatic, PERRLA, EOMI, Normocephalic Oral: Dry Mucosa Neck: Supple, No JVD, Negative Carotid Bruits Lungs: Clear to auscultation, Normal air movement, No rhonchi, No wheeze, No rales Cardiovascular: Normal S1, Normal S2, No murmurs, Irregular Rate - afib, rate controlled Abdomen: Bowel Sounds Present, Soft, Non Tender Extremities: No clubbing, No cyanosis, No edema, Capillary Refill Less than 3 Seconds Skin: No rashes, No breakdown Musculoskeletal: - - left knee mildly swollen, minimally tender to touch Lymphatic: No Cervical, Supraclavicular, or Inguinal Adenopathy Neurological: Cranial nerves II-XII grossly intact, Neuro grossly intact, Motor Exam 5/5 strength throughout Psych/Mental Status: Normal Affect, Appropriate, Alert and oriented to time, place, person, mood and affect Laboratory Results 05/14/20 08:45: WBC 8.3, RBC 3.65 L, Hgb 11.1 L, Hct 35.8 L, MCV 98.1, MCH 30.4, MCHC 31.0 L, RDW Std Deviation 57.0 H, RDW Coeff of Cricket 15.8 H, Plt Count 236, MPV 12.6 H, Immature Gran % (Auto) 0.600, Neut % (Auto) 74.3 H, Lymph % (Auto) 13.8 L, [place] % (Auto) 9.9, Eos % (Auto) 1.0, Baso % (Auto) 0.4, Absolute Neuts (auto) 6.2, Absolute Lymphs (auto) 1.15, Nucleated RBC % 0 05/14/20 08:45: PT 16.8 H, INR 1.4, APTT 30.3 05/14/20 08:45: Sodium 138, Potassium 3.9, Chloride 99, Carbon Dioxide 37.0 H, Anion Gap 2 L, BUN 33 H, Creatinine 1.55 H, Estim Creat Clear Calc 33.75, Est GFR (MDRD) Af Amer 41 L, Est GFR (MDRD) Non-Af 34 L, BUN/Creatinine Ratio 21.3 H , Glucose 105, Calcium 10.3 H, Total Creatine Kinase 100, Troponin I < 0.015 05/14/20 10:15: Urine Color Yellow, Urine Clarity Clear, Urine pH 5.0, Ur Specific [place] 1.010, Urine Protein 15 H, Urine Glucose (UA) Normal, Urine Ketones Negative, Urine Occult Blood Negative, Urine Nitrite Negative, Urine Bilirubin Negative, Urine Urobilinogen Normal, Ur Leukocyte Esterase 25 H, Urine RBC 0 SEEN, Urine WBC 0-5 SEEN, Ur Squamous Epith Cells 0 SEEN, Urine Bacteria RARE, Hyaline Casts 5-10 SEEN, Urine Mucus RARE 05/15/20 06:25: WBC 6.6, RBC 3.29 L, Hgb 10.0 L, Hct 32.2 L, MCV 97.9, MCH 30.4, MCHC 31.1 L, RDW Std Deviation 55.8 H, RDW Coeff of Cricket 15.8 H, Plt Count 180, MPV 12.6 H, Immature Gran % (Auto) 0.300, Neut % (Auto) 68.7, Lymph % (Auto) 17.1 L, [place] % (Auto) 11.9 H, Eos % (Auto) 1.5, Baso % (Auto) 0.5, Absolute Neuts (auto) 4.6, Absolute Lymphs (auto) 1.13, Nucleated RBC % 0 05/15/20 06:25: Sodium Pending, Potassium Pending, Chloride Pending, Carbon Dioxide Pending, Anion Gap Pending, BUN Pending, Creatinine Pending, Est GFR (M DRD) Af Amer Pending, Est GFR (MDRD) Non-Af Pending, BUN/Creatinine Ratio Pending, Glucose Pending, Calcium Pending Diagnostic Data Brain CT 05/14/20 08:39 IMPRESSION: Chronic involutional changes of the brain. No acute intracranial process. Electronically Signed: Jerod Card MD at 9:50 EDT Tel , Service support , Chest X-Ray 05/14/20 08:39 IMPRESSION: COPD changes. No active pulmonary disease. Electronically Signed: Jerod Card MD at 9:41 EDT Tel , Service support , Knee X-Ray 05/14/20 12:50 IMPRESSION: Status post total left knee replacement. Mild effusion. Electronically Signed: Sunny Leon DO at 16:09 EDT Tel [phone], Service support , Current Medications Acetaminophen (Tylenol) 650 mg PO Q6H PRN PRN PRN Reason: Pain Score 1-10/Temp > 100.7 F Last Admin: 05/15/20 05:46 Dose: 650 mg Documented by: Albuterol Sulfate (Ventolin Aerosols) 2.5 mg INHALATION Q6H PRN PRN PRN Reason: DYSPNEA Allopurinol (Zyloprim) 300 mg PO DAILY [facility] Atorvastatin Calcium (Lipitor) 10 mg PO QHS [facility] Last Admin: 05/14/20 21:15 Dose: 10 mg Documented by: Colchicine (Colchicine) 0.6 mg PO DAILY [facility] Flecainide Acetate (Tambocor) 50 mg PO BID [facility] Last Admin: 05/14/20 21:15 Dose: 50 mg Documented by: Furosemide (Lasix) 20 mg PO DAILY [facility] Sodium Chloride () 250 mls @ 15 mls/hr IV .[id number] PRN PRN Reason: Saline Flush Sodium Chloride () 250 mls @ 15 mls/hr IV .[id number] PRN PRN Reason: Additional IVPB Infusion Levothyroxine Sodium (Synthroid) 100 mcg PO MoTuWeThFrSa@0600 [facility] Morphine Sulfate () 2 mg IV Q3H PRN PRN PRN Reason: Pain Score 6-10/10 Nutritional Formula (Lactose Free) (Ensure Enlive) 120 ml PO 4X/DAY [facility] Last Admin: 05/14/20 21:15 Dose: Not Given Documented by: Ondansetron HCl (Zofran) 4 mg IV Q8H PRN PRN PRN Reason: NAUSEA/VOMITING Oxycodone HCl (Oxyir) 5 mg PO Q4H PRN PRN PRN Reason: Pain Score 4-5/10 Pantoprazole Sodium (Protonix) 40 mg PO DAILY [facility] Paroxetine HCl (Paxil) 10 mg PO QHS [facility] Last Admin: 05/14/20 21:15 Dose: 10 mg Documented by: Potassium Chloride (K-Dur) 10 meq PO BIDCM [facility] Last Admin: 05/14/20 18:00 Dose: 10 meq Documented by: Sodium Chloride () 10 - 40 ml IV UD PRN PRN Reason: SALINE FLUSH STROKE Vital Signs/Narrative: Vital Signs Temp Pulse Resp BP Pulse Ox 05/15/20 05:42 97.9 F 93 18 108/71 100 Medical Necessity - Tobacco Use Smoking Status: Never smoker Assessment/Plan All Active Problems (Last Reviewed 03/19/20 @ 14:[address] Naina Llamas, DO) Upper GI bleeding (Acute) Acute blood loss anemia (Acute) Atrial fibrillation with rapid ventricular response (Acute) Dyspnea (Acute) Back pain (Acute) Debility (Acute) Shortness of breath (Acute) Left ankle sprain (Acute) Multiple falls (Acute) JESSICA (acute kidney injury) (Acute) Generalized weakness (Acute) Bradycardia (Acute) Confusion (Resolved) Esophageal stricture (Resolved) Expressive aphasia (Resolved) Hypoxia (Resolved) 80 y/o admitted with a complaint of mechanical falls # Debility due to recurrent mechanical falls * OT/OT on board * fall precautions * xray of left knee showed mild effusion and s/p left total knee replacement. * pain is much better. * #Afib: on flecainide. WIll resume eliquis today # Hypothyroidism: on synthroid # Gout: on allopurinol and colchicine. # CKD: Cr today is 1.31. Stable #HFpEF: not in exacerbation. on PO lasix 20mg daily # Hyperlipidemia: on statin # Thoracic aortic aneurysm: stable #History of recurrent PE: resume eliquis DVT prophylaxis: resume eliquis today, as I dont think she will need orthopedic intervention, since knee pain is much much better. CODE STATUS: DNRCCA no intubation Disposition: awaiting placement * OBSV E&M: [id number] Subsequent observation care L2
[2020-05-15 07:46] LABS: Anion Gap 3 (5-15); BUN 32 mg/dL (7-18); BUN/Creat Ratio 24.4 RATIO (10-20); Calcium,Total 10.1 mg/dL (8.5-10.1); Chloride 101 mmol/L (98-107); Creatinine, Serum 1.31 mg/dL (0.55-1.02); EST Glomerular Filtration Rate 41 mL/min (>60); Est Glom Filt Rate - Afr Amer 50 mL/min (>60); Estimated Creatinine Clearance 38.16 ml/min; Glucose 101 mg/dL (74-106); Potassium 3.8 mmol/L (3.5-5.1); Sodium Level 139 mmol/L (136-145)
[2020-05-15 10:00] VITALS: BP 108/69; PULSE 87; RESP 16; TEMP 36.6; O2SAT 99
[2020-05-15] MEDS: Pantoprazole Sodium 40 MG Tablet PO (10:17)
[2020-05-15] MEDS: Furosemide 20 MG Tablet PO (10:17)
[2020-05-15] MEDS: Allopurinol 300 MG Tablet PO (10:17)
[2020-05-15] MEDS: Flecainide 100 MG Tablet 50 MG PO ×2 (10:20→21:07)
[2020-05-15] MEDS: APIXABAN 2.5 MG TABLET PO ×2 (10:22→21:07)
[2020-05-15 14:00] VITALS: BP 141/67; PULSE 96; RESP 16; TEMP 36.8; O2SAT 96
[2020-05-15 20:07] VITALS: BP 101/75; PULSE 110; RESP 16; TEMP 36.8; O2SAT 96
[2020-05-15] MEDS: PARoxetine 10 MG Tablet PO (21:07)
[2020-05-15] MEDS: Atorvastatin Calcium 10 MG Tablet PO (21:07)
[2020-05-16] VITALS (13 sets, daily range): BP systolic 105–132; BP diastolic 62–91; PULSE 93–140; RESP 18–28; TEMP 36.3–37.2; O2SAT 93–98
[2020-05-16] MEDS: Acetaminophen 325 MG Tablet 650 MG PO ×2 (03:08→22:29)
[2020-05-16 06:08] LABS: Absolute Neutrophil Count 5.6 X10^3/uL (2.0-7.7); Basophil# 0.02 X10^3/uL; Basophil% 0.3 % (0-1); Eosinophil# 0.05 X10^3/uL; Eosinophils% 0.6 % (0-5); Hematocrit 31.1 % (37-47); Hemoglobin 9.7 g/dL (12.0-15.0); Lymphocyte % 13.9 % (19-41); Mean Corp Hgb Conc 31.2 g/dL (32-36); Mean Corpuscular Hgb 30.4 pg (27.0-32.0); Mean Corpuscular Volume 97.5 fL (81-99); Mean Platelet Vol. 13.2 fl (6.2-12.0); Monocyte# 1.04 X10^3/uL; Monocyte% 13.2 % (0-10); NRBC Flagged by Analyzer 0 % (0-5); Neutrophil # 5.64 X10^3/uL (2.7-7.7); Neutrophil % 71.4 % (47-70); Platelet Count 167 K/mm3 (150-450); RBC Distribution Width CV 15.9 % (11.6-14.6); RBC Distribution Width SD 56.4 fl (35.1-43.9); Red Blood Count 3.19 M/mm3 (4.2-5.4); White Blood Count 7.9 K/mm3 (4.4-11.0)
[2020-05-16 06:42] LABS: Anion Gap 5 (5-15); BUN 34 mg/dL (7-18); BUN/Creat Ratio 29.6 RATIO (10-20); Calcium,Total 9.9 mg/dL (8.5-10.1); Chloride 101 mmol/L (98-107); Creatinine, Serum 1.15 mg/dL (0.55-1.02); EST Glomerular Filtration Rate 48 mL/min (>60); Est Glom Filt Rate - Afr Amer 58 mL/min (>60); Estimated Creatinine Clearance 43.46 ml/min; Glucose 103 mg/dL (74-106); Sodium Level 139 mmol/L (136-145)
[2020-05-16] MEDS: Levothyroxine 100 MCG Tablet PO (06:42)
--- NOTE | 2020-05-16 07:35 | PCM.PN.HOSP ---
Patient Problems: Active and Suspected Problems (Last Reviewed 03/19/20 @ 14:[address] Naina Llamas, DO) Debility (Acute) Multiple falls (Acute) Generalized weakness (Acute) Subjective: Patient seen and examined. She has no complaints today. She is awaiting placement. Labs and vitals reviewed. Heart rate is slightly elevated at 108 today. She has otherwise remained hemodynamically stable. Vitals/I&O's: Vital Signs Temp Pulse Resp BP Pulse Ox 98.1 F 108 H 20 H 110/65 98 05/16/20 02:20 05/16/20 02:20 05/16/20 02:20 05/16/20 02:20 05/16/20 02:20 Oxygen Flow Rate (L/min) 2.5 Oxygen Delivery Method Nasal Cannula Weight: 160 lb 14.999 oz Body Mass Index (BMI) 32.5 Finger Stick Blood Glucose 132 Intake and Output for Last 24 Hours 05/14/20 05/15/20 05/16/20 23:59 23:59 23:59 Intake Total 400 / 400 1100 / 1100 300 / 300 Output Total 700 / 700 1150 / 1150 250 / 250 Balance -300 / -300 -50 / -50 50 / 50 General: Alert, Oriented x3, Cooperative, No apparent distress HEENT: Atraumatic, PERRLA, EOMI, Normocephalic Oral: Dry Mucosa Neck: Supple, No JVD, Negative Carotid Bruits Lungs: Clear to auscultation, Normal air movement, No rhonchi, No wheeze, No rales Cardiovascular: Normal S1, Normal S2, No murmurs, Irregular Rate - afib, rate controlled Abdomen: Bowel Sounds Present, Soft, Non Tender Extremities: No clubbing, No cyanosis, No edema, Capillary Refill Less than 3 Seconds Skin: No rashes, No breakdown Musculoskeletal: - - left knee mildly swollen, minimally tender to touch Lymphatic: No Cervical, Supraclavicular, or Inguinal Adenopathy Neurological: Cranial nerves II-XII grossly intact, Neuro grossly intact, Motor Exam 5/5 strength throughout Psych/Mental Status: Normal Affect, Appropriate, Alert and oriented to time, place, person, mood and affect Laboratory Results 05/15/20 06:25: Sodium 139, Potassium 3.8, Chloride 101, Carbon Dioxide 35.0 H, Anion Gap 3 L, BUN 32 H, Creatinine 1.31 H, Estim Creat Clear Calc 38.16, Est GFR (MDRD) Af Amer 50 L, Est GFR (MDRD) Non-Af 41 L, BUN/Creatinine Ratio 24.4 H, Glucose 101, Calcium 10.1 05/16/20 05:15: WBC 7.9, RBC 3.19 L, Hgb 9.7 L, Hct 31.1 L, MCV 97.5, MCH 30.4, MCHC 31.2 L, RDW Std Deviation 56.4 H, RDW Coeff of Cricket 15.9 H, Plt Count 167, MPV 13.2 H, Immature Gran % (Auto) 0.600, Neut % (Auto) 71.4 H, Lymph % (Auto) 13.9 L, [place] % (Auto) 13.2 H, Eos % (Auto) 0.6, Baso % (Auto) 0.3, Absolute Neuts (auto) 5.6, Absolute Lymphs (auto) 1.10, Nucleated RBC % 0 05/16/20 05:15: Sodium 139, Potassium 4.0, Chloride 101, Carbon Dioxide 33.0 H, Anion Gap 5, BUN 34 H, Creatinine 1.15 H, Estim Creat Clear Calc 43.46, Est GFR (MDRD) Af Amer 58 L, Est GFR (MDRD) Non-Af 48 L, BUN/Creatinine Ratio 29.6 H, Glucose 103, Calcium 9.9 Current Medications Acetaminophen (Tylenol) 650 mg PO Q6H PRN PRN PRN Reason: Pain Score 1-10/Temp > 100.7 F Last Admin: 05/16/20 03:08 Dose: 650 mg Documented by: Albuterol Sulfate (Ventolin Aerosols) 2.5 mg INHALATION Q6H PRN PRN PRN Reason: DYSPNEA Allopurinol (Zyloprim) 300 mg PO DAILY [facility] Last Admin: 05/15/20 10:17 Dose: 300 mg Documented by: Apixaban (Eliquis) 2.5 mg PO BID [facility] Last Admin: 05/15/20 21:07 Dose: 2.5 mg Documented by: Atorvastatin Calcium (Lipitor) 10 mg PO QHS [facility] Last Admin: 05/15/20 21:07 Dose: 10 mg Documented by: Colchicine (Colchicine) 0.6 mg PO DAILY [facility] Last Admin: 05/15/20 10:18 Dose: 0.6 mg Documented by: Flecainide Acetate (Tambocor) 50 mg PO BID [facility] Last Admin: 05/15/20 21:07 Dose: 50 mg Documented by: Furosemide (Lasix) 20 mg PO DAILY [facility] Last Admin: 05/15/20 10:17 Dose: 20 mg Documented by: Sodium Chloride () 250 mls @ 15 mls/hr IV .[id number] PRN PRN Reason: Saline Flush Sodium Chloride () 250 mls @ 15 mls/hr IV .[id number] PRN PRN Reason: Additional IVPB Infusion Levothyroxine Sodium (Synthroid) 100 mcg PO MoTuWeThFrSa@0600 [facility] Last Admin: 05/16/20 06:42 Dose: 100 mcg Documented by: Morphine Sulfate () 2 mg IV Q3H PRN PRN PRN Reason: Pain Score 6-10/10 Nutritional Formula (Lactose Free) (Ensure Enlive) 120 ml PO 4X/DAY [facility] Last Admin: 05/15/20 21:04 Dose: Not Given Documented by: Ondansetron HCl (Zofran) 4 mg IV Q8H PRN PRN PRN Reason: NAUSEA/VOMITING Oxycodone HCl (Oxyir) 5 mg PO Q4H PRN PRN PRN Reason: Pain Score 4-5/10 Pantoprazole Sodium (Protonix) 40 mg PO DAILY [facility] Last Admin: 05/15/20 10:17 Dose: 40 mg Documented by: Paroxetine HCl (Paxil) 10 mg PO QHS [facility] Last Admin: 05/15/20 21:07 Dose: 10 mg Documented by: [facility]assium [facility]) [facility] Last Admin: 05/15/20 16:24 Dose: 10 meq Documented by: Sodium Chloride () 10 - 40 ml IV UD PRN PRN Reason: SALINE FLUSH Medical Necessity - Tobacco Use Smoking Status: Never smoker Assessment/Plan All Active Problems (Last Reviewed 03/19/20 @ 14:[address] Naina Llamas DO) Upper GI bleeding (Acute) Acute blood loss anemia (Acute) Atrial fibrillation with rapid ventricular response (Acute) Dyspnea (Acute) Back pain (Acute) Debility (Acute) Shortness of breath (Acute) Left ankle sprain (Acute) Multiple falls (Acute) JESSICA (acute kidney injury) (Acute) Generalized weakness (Acute) Bradycardia (Acute) Confusion (Resolved) Esophageal stricture (Resolved) Expressive aphasia (Resolved) Hypoxia (Resolved) 80 y/o admitted with a complaint of mechanical falls # Debility due to recurrent mechanical falls OT/OT on board fall precautions xray of left knee showed mild effusion and s/p left total knee replacement. pain has improved markedly #Afib: on flecainide.on eliquis # Hypothyroidism: on synthroid # Gout: on allopurinol and colchicine. # CKD: Cr today is 1.31. Stable #HFpEF: not in exacerbation. on PO lasix 20mg daily # Hyperlipidemia: on statin # Thoracic aortic aneurysm: stable #History of recurrent PE: on eliquis DVT prophylaxis: on eliquis CODE STATUS: DNRCCA no intubation Disposition: awaiting placement OBSV E&M: [id number] Subsequent observation care L2
[2020-05-16] MEDS: Pantoprazole Sodium 40 MG Tablet PO (09:59)
[2020-05-16] MEDS: Furosemide 20 MG Tablet PO (10:00)
[2020-05-16] MEDS: Flecainide 100 MG Tablet 50 MG PO ×2 (10:00→20:57)
[2020-05-16] MEDS: APIXABAN 2.5 MG TABLET PO ×2 (10:00→20:57)
[2020-05-16] MEDS: Allopurinol 300 MG Tablet PO (10:05)
[2020-05-16] MEDS: 0.9% Saline Lock 10 ML Syringe IV ×3 (14:26→22:36)
[2020-05-16] MEDS: PARoxetine 10 MG Tablet PO (20:55)
[2020-05-16] MEDS: Atorvastatin Calcium 10 MG Tablet PO (20:57)
--- NOTE | 2020-05-16 21:18 | EKG12_ITS ---
Test Reason : TRANS FROM Blood Pressure : / mmHG Vent. Rate : 111 BPM Atrial Rate : 110 BPM P-R Int : 000 ms QRS Dur : 170 ms QT Int : 382 ms P-R-T Axes : 000 117 -14 degrees QTc Int : 519 ms Atrial fibrillation Right bundle branch block T wave abnormality, consider inferior ischemia Abnormal ECG When compared with ECG of 16-MAY-2020 21:15, MANUAL COMPARISON REQUIRED, DATA IS UNCONFIRMED Confirmed by SARAH CURTIS, EVA ([id number]), food editor MARIALUISA SWENSON ([id number]) on 05/19/2020 9:40:49 AM Referred By: DR FONTAINE Confirmed By:EVA SMITH MD
--- NOTE | 2020-05-16 21:31 | NURSING ---
Report received from Clarice AQUINO on [facility]. Pt. to be transferred to 110 for Afib RVR.
--- NOTE | 2020-05-16 21:50 | NURSING ---
Notified by NA that pt was requesting inhaler for SOB. On assessment of this pt HR was noted to be 120-140. EKG was completed and sent to Dr. Vinson. Rhythm interpretation, Afib with RVR. Order for cardiac series and pt to be transferred to PCU obtained. Notified pt's son and daughter Waldemar that pt will be moved to PCU 110.
--- NOTE | 2020-05-16 22:27 | PN_ITS ---
Patient Problems: Active and Suspected Problems (Last Reviewed 03/19/20 @ 14:[address] Naina Llamas DO) Debility (Acute) Multiple falls (Acute) Generalized weakness (Acute) Vitals/I&O's: Vital Signs Temp Pulse Resp BP Pulse Ox 98.1 F 132 H 25 H 132/75 H 98 05/16/20 22:10 05/16/20 22:10 05/16/20 22:10 05/16/20 22:10 05/16/20 22:10 Oxygen Flow Rate (L/min) 3 Oxygen Delivery Method Nasal Cannula Weight: 160 lb 14.999 oz Body Mass Index (BMI) 32.5 Finger Stick Blood Glucose 132 Intake and Output for Last 24 Hours 05/14/20 05/15/20 05/16/20 23:59 23:59 23:59 Intake Total 400 / 400 1100 / 1100 1900 / 1900 Output Total 700 / 700 1150 / 1150 750 / 750 Balance -300 / -300 -50 / -50 1150 / 1150 General: Alert, Confused Cardiovascular: Normal S1, Normal S2, Tachycardic Laboratory Results 05/16/20 05:15: WBC 7.9, RBC 3.19 L, Hgb 9.7 L, Hct 31.1 L, MCV 97.5, MCH 30.4, MCHC 31.2 L, RDW Std Deviation 56.4 H, RDW Coeff of Cricket 15.9 H, Plt Count 167, MPV 13.2 H, Immature Gran % (Auto) 0.600, Neut % (Auto) 71.4 H, Lymph % (Auto) 13.9 L, [place] % (Auto) 13.2 H, Eos % (Auto) 0.6, Baso % (Auto) 0.3, Absolute Neuts (auto) 5.6, Absolute Lymphs (auto) 1.10, Nucleated RBC % 0 05/16/20 05:15: Sodium 139, Potassium 4.0, Chloride 101, Carbon Dioxide 33.0 H, Anion Gap 5, BUN 34 H, Creatinine 1.15 H, Estim Creat Clear Calc 43.46, Est GFR (MDRD) Af Amer 58 L, Est GFR (MDRD) Non-Af 48 L, BUN/Creatinine Ratio 29.6 H, Glucose 103, Calcium 9.9 05/16/20 21:41: Troponin I < 0.015 Current Medications Acetaminophen (Tylenol) 650 mg PO Q6H PRN PRN PRN Reason: Pain Score 1-10/Temp > 100.7 F Last Admin: 05/16/20 03:08 Dose: 650 mg Documented by: Albuterol Sulfate (Ventolin Aerosols) 2.5 mg INHALATION Q6H PRN PRN PRN Reason: DYSPNEA Allopurinol (Zyloprim) 300 mg PO DAILY [facility] Last Admin: 05/16/20 10:05 Dose: 300 mg Documented by: Apixaban (Eliquis) 2.5 mg PO BID [facility] Last Admin: 05/16/20 20:57 Dose: 2.5 mg Documented by: Atorvastatin Calcium (Lipitor) 10 mg PO QHS [facility] Last Admin: 05/16/20 20:57 Dose: 10 mg Documented by: Colchicine (Colchicine) 0.6 mg PO DAILY [facility] Last Admin: 05/16/20 10:01 Dose: 0.6 mg Documented by: Flecainide Acetate (Tambocor) 50 mg PO BID [facility] Last Admin: 05/16/20 20:57 Dose: 50 mg Documented by: Furosemide (Lasix) 20 mg PO DAILY [facility] Last Admin: 05/16/20 10:00 Dose: 20 mg Documented by: Sodium Chloride () 250 mls @ 15 mls/hr IV .[id number] PRN PRN Reason: Saline Flush Sodium Chloride () 250 mls @ 15 mls/hr IV .[id number] PRN PRN Reason: Additional IVPB Infusion Levothyroxine Sodium (Synthroid) 100 mcg PO MoTuWeThFrSa@0600 [facility] Last Admin: 05/16/20 06:42 Dose: 100 mcg Documented by: Morphine Sulfate () 2 mg IV Q3H PRN PRN PRN Reason: Pain Score 6-10/10 Nutritional Formula (Lactose Free) (Ensure Enlive) 120 ml PO 4X/DAY [facility] Last Admin: 05/16/20 20:56 Dose: 120 ml Documented by: Ondansetron HCl (Zofran) 4 mg IV Q8H PRN PRN PRN Reason: NAUSEA/VOMITING Oxycodone HCl (Oxyir) 5 mg PO Q4H PRN PRN PRN Reason: Pain Score 4-5/10 Pantoprazole Sodium (Protonix) 40 mg PO DAILY [facility] Last Admin: 05/16/20 09:59 Dose: 40 mg Documented by: Paroxetine HCl (Paxil) 10 mg PO QHS [facility] Last Admin: 05/16/20 20:55 Dose: 10 mg Documented by: Potassium Chloride (K-Dur) 10 meq PO BIDCM [facility] Last Admin: 05/16/20 18:00 Dose: 10 meq Documented by: Sodium Chloride () 10 - 40 ml IV UD PRN PRN Reason: SALINE FLUSH Last Admin: 05/16/20 14:26 Dose: 10 ml Documented by: STROKE Vital Signs/Narrative: Vital Signs Temp Pulse Resp BP Pulse Ox 05/16/20 22:10 98.1 F 132 H 25 H 132/75 H 98 05/16/20 21:00 140 H 05/16/20 20:45 98.7 F 140 H 18 114/72 93 Medical Necessity - Tobacco Use Smoking Status: Never smoker Assessment/Plan All Active Problems (Last Reviewed 03/19/20 @ 14:[address] Naina Llamas, DO) Upper GI bleeding (Acute) Acute blood loss anemia (Acute) Atrial fibrillation with rapid ventricular response (Acute) Dyspnea (Acute) Back pain (Acute) Debility (Acute) Shortness of breath (Acute) Left ankle sprain (Acute) Multiple falls (Acute) JESSICA (acute kidney injury) (Acute) Generalized weakness (Acute) Bradycardia (Acute) Confusion (Resolved) Esophageal stricture (Resolved) Expressive aphasia (Resolved) Hypoxia (Resolved) called to eval for tachycardia ekg done shows a-fiv rvr with right bundle Branch block with allergy to metoprolol decided to transfer to PCU and use cardizem to manage her rate she was already anticoagulated she had no chest pain or shortness of breath she is axox1 and this was her baseline mental status according to nursing
[2020-05-16] MEDS: dilTIAZem 25 MG/5 ML Vial 10 MG IV BOLUS (22:35)
--- NOTE | 2020-05-16 23:55 | EKG12_ITS ---
Test Reason : A-FIB Blood Pressure : / mmHG Vent. Rate : 139 BPM Atrial Rate : 144 BPM P-R Int : 000 ms QRS Dur : 170 ms QT Int : 318 ms P-R-T Axes : 000 141 -25 degrees QTc Int : 483 ms Atrial fibrillation Right bundle branch block T wave abnormality, consider inferior ischemia Abnormal ECG When compared with ECG of 14-MAY-2020 08:36, MANUAL COMPARISON REQUIRED, DATA IS UNCONFIRMED Confirmed by BALA CURTIS, CARYN ([id number]), videotape editor IZABELA CALLAWAY ([id number]) on 05/20/2020 1:39:44 PM Referred By: CHARLES Confirmed By:TERESA MCKENNA MD
[2020-05-17] VITALS (31 sets, daily range): BP systolic 91–119; BP diastolic 49–98; PULSE 76–105; RESP 18–34; TEMP 36.8–37.2; O2SAT 92–99
[2020-05-17] MEDS: Levothyroxine 100 MCG Tablet PO (05:06)
--- NOTE | 2020-05-17 08:43 | PCM.CONS.C ---
Problem List (1) Atrial fibrillation with rapid ventricular response Status: Acute (2) Chronic diastolic (congestive) heart failure Status: Chronic (3) Thoracic aortic aneurysm Status: Chronic (4) Hypertension Status: Chronic Qualifiers: Hypertension type: unspecified Qualified Code(s): I10 - Essential (primary) hypertension (5) History of CVA (cerebrovascular accident) Status: Chronic Reason for Consult Date of Consultation: 05/17/20 History of Present Illness: The patient is a 80 year old white female with a history of atrial fibrillation, chronic diastolic mediated CHF, thoracic aortic aneurysm, hypertension, remote CVA, previous GI bleed, previous pulmonary emboli, who has previously been followed from a cardiovascular standpoint by [facility] cardiology as well as by Prakash Cordova MD of the [facility], who was referred for evaluation of her atrial fibrillation. She presented to the hospital based upon concerns at home of falling episodes due to issues with her left knee. She is undergoing evaluation care per internal medicine. At home the patient states she has had no chest discomfort and no acute shortness of breath/dyspnea. There has been no orthopnea or PND or worsening lower extremity peripheral pitting edema. She states she has not lost consciousness with any of her falling episodes. She was brought into the hospital and noted to be in her atrial fibrillation which is not new for her. She has undergone evaluation care for this in the past with medical therapy and DC cardioversion. She has been on and off her anticoagulant therapy based upon concerns of GI bleeding evaluation in February of this year. She states she has been back on her anticoagulation she believes for approximately a month following the diagnosis of pulmonary emboli. She does not describe any acute hemorrhagic issues. In the hospital she was noted to be in her atrial fibrillation with a variable ventricular response. There was concern that her ventricular rate increased and she was placed on IV diltiazem. She has been on antiarrhythmic therapy in the past with flecainide/Tambocor. It appears despite its use that she has had recurrent atrial dysrhythmias. [] Past Medical History Allergies/Adverse Reactions: Allergies adhesive Allergy (Verified 05/14/20 08:49) Rash irbesartan Allergy (Verified 05/14/20 08:49) Unknown solifenacin [From Vesicare] Allergy (Verified 05/14/20 08:49) Unknown sulindac [Sulindac] Allergy (Verified 05/14/20 08:49) Unknown lisinopril Adverse Reaction (Verified 05/14/20 08:49) Other COUGH losartan potassium [From Cozaar] Adverse Reaction (Verified 05/14/20 08:49) Other metoprolol Adverse Reaction (Verified 05/14/20 08:49) GI Upset ramipril [From Altace] Adverse Reaction (Verified 05/14/20 08:49) Other tramadol Adverse Reaction (Verified 05/14/20 08:49) Unknown Home Medications: Ambulatory Orders Medication Instructions Recorded Atorvastatin Calcium [Lipitor] 10 mg PO QHS 04/17/17 levothyroxine 100 mcg tablet 100 mcg PO DAILY 09/27/17 flecainide 50 mg tablet 50 mg PO Q12H #180 tab 09/10/19 allopurinol 300 mg tablet 300 mg PO DAILY 03/03/20 Colchicine 0.6 mg PO DAILY 03/04/20 Apixaban [Eliquis] 2.5 mg PO BID 04/03/20 Pantoprazole Sodium 40 mg PO DAILY 04/03/20 Paroxetine [Paxil] 10 mg PO QHS 04/03/20 Acetaminophen [Tylenol Tablet] 650 mg PO Q6H PRN PRN tab 04/04/20 Albuterol Aerosols [Ventolin 2.5 mg INHALATION Q6H PRN PRN #1 04/04/20 Aerosols] vial furosemide 20 mg tablet 20 mg PO DAILY 04/20/20 Loperamide [Imodium] 2 mg PO Q6H PRN PRN 05/14/20 Potassium Chloride 10 meq PO BID 05/14/20 Past Medical History (Chronic Problems): Chronic Problems (Last Reviewed 03/19/20 @ 14:[address] Naina Llamas, DO) Pressure ulcer of right buttock, stage 2 (Chronic) Bilateral pulmonary embolism (Chronic) Chronic respiratory failure with hypoxia (Chronic) Gastric ulcer (Chronic) Stroke (Chronic) DVT (deep venous thrombosis) (Chronic) Atrial fibrillation (Chronic) Thoracic aortic aneurysm (Chronic) Chronic diastolic (congestive) heart failure (Chronic) COPD (chronic obstructive pulmonary disease) (Chronic) Gout (Chronic) Allergic rhinitis (Chronic) Hypokalemia (Chronic) Hyperlipidemia (Chronic) Obstructive sleep apnea (Chronic) Carotid stenosis (Chronic) Chronic kidney disease (Chronic) Dementia (Chronic) Meningioma (Chronic) Chronic diastolic heart failure (Chronic) Paroxysmal atrial fibrillation (Chronic) Diastolic CHF, acute (Chronic) Dyspnea on exertion (Chronic) Hyperparathyroidism (Chronic) Hypothyroidism (Chronic) Lymphomatoid papulosis (Chronic) Hypertension (Chronic) Obesity (Chronic) Right bundle branch block (Chronic) AV block, 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) GERD (gastroesophageal reflux disease) (Chronic) History of esophageal dilatation (Chronic) Anxiety and depression (Chronic) Thoracic aortic aneurysm (Chronic) 3.9 cm History of CVA (cerebrovascular accident) (Chronic) Surgical History: appendectomy, cholecystectomy, herniorrhaphy - With mesh, extensive per patient, total hip arthroplasty - Right, total knee arthroplasty - Bilateral, - - Esophageal dilation Psychiatric History: No pertinent psych hx 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: - - Tubal ligation - *Family History Paternal Family History: Family History (Last Reviewed 04/03/20 @ 16:40 by Popeye FRANCOIS PA) Father CVA (cerebral vascular accident) Mother CAD (coronary artery disease) Congestive heart failure History Items: Stroke, No pertinent history - No history of lung disease or autoimmune disease Maternal Family History: Family History (Last Reviewed 04/03/20 @ 16:40 by Popeye FRANCOIS PA) Father CVA (cerebral vascular accident) Mother CAD (coronary artery disease) Congestive heart failure History Items: Stroke, No pertinent history - No history of lung disease autoimmune disease Lives: Spouse/ Significant Other Smoking Status: Never smoker Alcohol: None Drugs: None Review of Systems - Review of Systems General: Reports: Weakness Cardiovascular: Denies: Chest Discomfort, Shortness of Breath, Orthopnea, PND, Peripheral Edema, Palpitations, Lightheadedness, Dizziness, Near Syncope, Syncope Respiratory: Denies: Cough, Sputum Production, Hemoptysis Gastrointestinal: Denies: Hematemesis, Hematochezia, Melena Genitourinary: Denies: Dysuria, Hematuria Skin: Denies: Rash Neurological: Reports: Falls Subjectve: This is a pleasant hard of hearing 80-year-old white female appears to be resting comfortably at the moment in no acute distress. Objective: Vital Signs Temp Pulse Resp BP Pulse Ox 98.9 F 78 24 H 103/64 99 05/17/20 04:00 05/17/20 08:00 05/17/20 08:00 05/17/20 08:00 05/17/20 08:00 Oxygen Flow Rate (L/min) 2.5 Oxygen Delivery Method Nasal Cannula Weight: 160 lb 14.999 oz Body Mass Index (BMI) 32.5 Finger Stick Blood Glucose 132 Intake and Output for Last 24 Hours 05/15/20 05/16/20 05/17/20 23:59 23:59 23:59 Intake Total 1100 / 1100 1905.16 / 1959.99 173.25 / 173.25 Output Total 1150 / 1150 750 / 750 Balance -50 / -50 1155.16 / 1209.99 173.25 / 173.25 General: Awake, Alert, Oriented x 3, Cooperative, No Acute Distress HEENT: Atraumatic, Normocephalic, PERRL, EOMI, Sclera Non Icteric Neck: Supple, Good ROM, No JVD Lungs: Clear to auscultation Cardiovascular: Irregular Rhythm, Normal S1, Normal S2 Abdomen: Bowel Sounds Present, Soft Extremities: No edema Psych/Mental Status: Appropriate 05/16/20 21:41: Troponin I < 0.015 05/17/20 00:35: Troponin I < 0.015 05/17/20 03:18: Troponin I < 0.015 Rhythm: EKG: ECHO: 03-19-2020 Interpretation Summary Normal LV size. Left ventricular systolic function is normal. The estimated ejection fraction is 60 %. Stage 3 diastolic dysfunction. Pulmonary artery systolic pressure is 28 mmHg. Compared to prior study, there is no significant change. Contrast injection was performed. Stress Test: 02-17-2020 Interpretation Summary The estimated ejection fraction is 65 %. Normal, adequate, dobutamine echocardiogram. Negative for ischemia by EKG and echocardiographic criteria. No anginal symptoms noted. No arrhythmias noted. Appropriate blood pressure response to dobutamine. Test terminated due to the attainment target heart rate. Final LVEF is 75%. Decrease sensitivity due to poor echo windows requiring Definity agent. Patient tolerated procedure well. No complications. The study was technically difficult. Contrast injection was performed. CXR: Preliminary evaluation: No acute cardiopulmonary disease appreciated; please see official report Chest CTA: 03-19-2020 FINDINGS: Normal enhancement of the main pulmonary artery and right and left pulmonary arteries. Incomplete filling defects in the right upper lobe peripheral pulmonary artery best seen on image 47 of series 2. There is not complete pulmonary emboli in peripheral pulmonary arteries of the medial right lower lobe. Incomplete thrombosis is also seen in the peripheral arteries left upper lobe. There is atherosclerotic tortuosity of the thoracic aorta without aneurysm. There is no demonstrated aortic dissection. Normal heart and pericardium. Normal mediastinum. Normal hilar regions. Normal visualized trachea and bronchi. The lungs are well expanded. Normal pulmonary parenchyma. Small right pleural effusion with subsegmental atelectasis at the right lung base. Normal chest wall structures. There are degenerative changes and dextroscoliosis of the thoracic spine. Normal visualized upper abdomen. IMPRESSION: 1. Nonocclusive thrombus in the peripheral arteries the bilateral upper and medial right lower lobes. 2. No aortic aneurysm or dissection. 3. Small right pleural effusion and atelectasis. 4. Dextroscoliosis and degenerative changes of the thoracic spine. Assessment/Plan 1. Atrial fibrillation The patient has a longstanding history of atrial fibrillation. She has been on medical management with rate control in the past, antiarrhythmic therapy, and anticoagulant therapy. At the present time it appears that at her last outpatient office visit she was on control therapy without atenolol which she appeared to be tolerating from a pulmonary standpoint and her antiarrhythmic therapy and her anticoagulant therapy was on temporary hold secondary to concerns of a previous GI bleeding process. At the present time based upon her home medication list it does not appear that she has been on rate control therapy. She has remained on her antiarrhythmic therapy with flecainide/Tambocor in the low dose. She had recently restarted her anticoagulant therapy based upon a history of pulmonary emboli. Status post review the case it appears at this time reasonable that she continue rate control therapy with either a calcium channel antagonist or beta-kaila as tolerated. It appears that her antiarrhythmic therapy is not holding her in sinus rhythm. Thus, it does not appear unreasonable to this be discontinued. She should continue anticoagulant therapy unless otherwise contraindicated. She has undergone other procedures in the past which apparently have included DC cardioversion. They have not been successful in the long-term. 2. Chronic diastolic mediated CHF At the present time she does not appear to have any acute on chronic diastolic mediated CHF issues. Her previous noninvasive studies have been reviewed. She will continue medical therapy as deemed appropriate. 3. Thoracic aortic aneurysm Her most recent chest CT scan comments upon elongation of her thoracic aorta but does not comment on any specific aneurysm. This can be reassessed as deemed appropriate. 4. Hypertension Her blood pressure can be followed. Her medications can be adjusted as deemed appropriate. 5. History of CVA She does have a history of CVA as well as a history of pulmonary emboli. Thus there are reasons that she should continue her anticoagulant therapy based on concerns of atrial fibrillation CVA and separately from her history of pulmonary emboli. Thus her anticoagulation should be continued unless otherwise contraindicated. Overall, the present time, it appears her course will continue with conservative medical management. She is undergone noninvasive evaluation this year. It does not appear the studies need to be repeated at this time. She does not appear to be in need of additional studies, especially invasive studies, at this time. Comment: The patient's case has been previously discussed and reviewed with the patient and Dr. Ashton. This note was generated using a voice recognition system and there may be incorrect words, spelling or punctuation that were not noted when reviewing the office note prior to saving.
[2020-05-17] MEDS: Pantoprazole Sodium 40 MG Tablet PO (10:01)
[2020-05-17] MEDS: Allopurinol 300 MG Tablet PO (10:01)
[2020-05-17] MEDS: Furosemide 20 MG Tablet PO (10:01)
[2020-05-17] MEDS: APIXABAN 2.5 MG TABLET PO ×2 (10:01→21:10)
--- NOTE | 2020-05-17 10:01 | PN_ITS ---
Patient Problems: Active and Suspected Problems (Last Reviewed 03/19/20 @ 14:[address] Naina Llamas, DO) Debility (Acute) Multiple falls (Acute) Generalized weakness (Acute) Subjective: Patient seen and examined. She had no complaints this morning. She denied any nausea, vomiting, fever or chills or diarrhea vomiting. Of note, patient did develop A. fib with RVR overnight and was transferred down to the PCU and started on Cardizem drip. She is on 15 MCG per minute of Cardizem drip today. Cardiology consulted. She has remained hemodynamically stable otherwise. Vitals/I&O's: Vital Signs Temp Pulse Resp BP Pulse Ox 98.9 F 78 24 H 103/64 99 05/17/20 04:00 05/17/20 08:00 05/17/20 08:00 05/17/20 08:00 05/17/20 08:00 Oxygen Flow Rate (L/min) 2.5 Oxygen Delivery Method Nasal Cannula Weight: 160 lb 14.999 oz Body Mass Index (BMI) 32.5 Finger Stick Blood Glucose 132 Intake and Output for Last 24 Hours 05/15/20 05/16/20 05/17/20 23:59 23:59 23:59 Intake Total 1100 / 1100 1905.16 / 1959.99 173.25 / 173.25 Output Total 1150 / 1150 750 / 750 Balance -50 / -50 1155.16 / 1209.99 173.25 / 173.25 General: Alert, Oriented x3, Cooperative, No apparent distress HEENT: Atraumatic, PERRLA, EOMI, Normocephalic Oral: Dry Mucosa Neck: Supple, No JVD, Negative Carotid Bruits Lungs: Clear to auscultation, Normal air movement, No rhonchi, No wheeze, No rales Cardiovascular: Normal S1, Normal S2, No murmurs, Irregular Rate - afib, rate controlled; on cardizem drip Abdomen: Bowel Sounds Present, Soft, Non Tender Extremities: No clubbing, No cyanosis, No edema, Capillary Refill Less than 3 Seconds Skin: No rashes, No breakdown Musculoskeletal: - - left knee mildly swollen, minimally tender to touch Lymphatic: No Cervical, Supraclavicular, or Inguinal Adenopathy Neurological: Cranial nerves II-XII grossly intact, Neuro grossly intact, Motor Exam 5/5 strength throughout Psych/Mental Status: Normal Affect, Appropriate, Alert and oriented to time, place, person, mood and affect Laboratory Results 05/16/20 21:41: Troponin I < 0.015 05/17/20 00:35: Troponin I < 0.015 05/17/20 03:18: Troponin I < 0.015 Current Medications Acetaminophen (Tylenol) 650 mg PO Q6H PRN PRN PRN Reason: Pain Score 1-10/Temp > 100.7 F Last Admin: 05/16/20 22:29 Dose: 650 mg Documented by: Albuterol Sulfate (Ventolin Aerosols) 2.5 mg INHALATION Q6H PRN PRN PRN Reason: DYSPNEA Allopurinol (Zyloprim) 300 mg PO DAILY [facility] Last Admin: 05/16/20 10:05 Dose: 300 mg Documented by: Apixaban (Eliquis) 2.5 mg PO BID [facility] Last Admin: 05/16/20 20:57 Dose: 2.5 mg Documented by: Atorvastatin Calcium (Lipitor) 10 mg PO QHS [facility] Last Admin: 05/16/20 20:57 Dose: 10 mg Documented by: Colchicine (Colchicine) 0.6 mg PO DAILY [facility] Last Admin: 05/16/20 10:01 Dose: 0.6 mg Documented by: Flecainide Acetate (Tambocor) 50 mg PO BID [facility] Last Admin: 05/16/20 20:57 Dose: 50 mg Documented by: Furosemide (Lasix) 20 mg PO DAILY [facility] Last Admin: 05/16/20 10:00 Dose: 20 mg Documented by: Sodium Chloride () 250 mls @ 15 mls/hr IV .[id number] PRN PRN Reason: Saline Flush Sodium Chloride () 250 mls @ 15 mls/hr IV .[id number] PRN PRN Reason: Additional IVPB Infusion Diltiazem HCl 125 mg/ Dextrose 125 mls @ 5 mls/hr IV .Q25H [facility]; Protocol Last Titration: 05/17/20 08:00 Dose: 15 mg/hr, 15 mls/hr Documented by: Levothyroxine Sodium (Synthroid) 100 mcg PO [id number]@0600 [facility] Last Admin: 05/17/20 05:06 Dose: 100 mcg Documented by: Morphine Sulfate () 2 mg IV Q3H PRN PRN PRN Reason: Pain Score 6-10/10 Nutritional Formula (Lactose Free) (Ensure Enlive) 120 ml PO 4X/DAY [facility] Last Admin: 05/16/20 20:56 Dose: 120 ml Documented by: Ondansetron HCl (Zofran) 4 mg IV Q8H PRN PRN PRN Reason: NAUSEA/VOMITING Oxycodone HCl (Oxyir) 5 mg PO Q4H PRN PRN PRN Reason: Pain Score 4-5/10 Pantoprazole Sodium (Protonix) 40 mg PO DAILY [facility] Last Admin: 05/16/20 09:59 Dose: 40 mg Documented by: Paroxetine HCl (Paxil) 10 mg PO QHS [facility] Last Admin: 05/16/20 20:55 Dose: 10 mg Documented by: Potassium Chloride (K-Dur) 10 meq PO BIDCM [facility] Last Admin: 05/16/20 18:00 Dose: 10 meq Documented by: Sodium Chloride () 10 - 40 ml IV UD PRN PRN Reason: SALINE FLUSH Last Admin: 05/16/20 22:36 Dose: 10 ml Documented by: STROKE Vital Signs/Narrative: Vital Signs Pulse Resp BP Pulse Ox 05/17/20 08:00 78 24 H 103/64 99 05/17/20 07:42 94 05/17/20 07:00 92 23 H 104/69 94 Medical Necessity - Tobacco Use Smoking Status: Never smoker Assessment/Plan All Active Problems (Last Reviewed 03/19/20 @ 14:[address] Naina Llamas, DO) Upper GI bleeding (Acute) Acute blood loss anemia (Acute) Atrial fibrillation with rapid ventricular response (Acute) Dyspnea (Acute) Back pain (Acute) Debility (Acute) Shortness of breath (Acute) Left ankle sprain (Acute) Multiple falls (Acute) JESSICA (acute kidney injury) (Acute) Generalized weakness (Acute) Bradycardia (Acute) Confusion (Resolved) Esophageal stricture (Resolved) Expressive aphasia (Resolved) Hypoxia (Resolved) 80 y/o admitted with a complaint of mechanical falls # Debility due to recurrent mechanical falls * OT/OT on board * fall precautions * xray of left knee showed mild effusion and s/p left total knee replacement. * pain has improved markedly * #Afib with RVR: * developed Afib with RVR overnight, requiring start of cardizem drip * still on cardizem drip; now rate controlled * cardiology consulted- started patient on PO cardizem 120mg daily * on eliquis # Hypothyroidism: on synthroid # Gout: on allopurinol and colchicine. # CKD: Cr today is 1.31. Stable #HFpEF: not in exacerbation. on PO lasix 20mg daily # Hyperlipidemia: on statin # Thoracic aortic aneurysm: stable #History of recurrent PE: on eliquis DVT prophylaxis: on eliquis CODE STATUS: DNRCCA no intubation Disposition: awaiting placement.COVID test ordered to facilitate placement. * Inpatient E&M: 57193 Subs Hosp L2
--- NOTE | 2020-05-17 10:07 | CASEMGMT ---
YIN spoke with Khloe at [facility] and they are not in network with [facility]. 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 YIN spoke with patient and let her know this information. She was not pleased with her other options for SNF. She went to [facility] in 2004 and did not like it. Her mom, dad, and brother all at [place]. [facility] YIN called Nereyda at [facility] and their short term rehab unit is not back up and running yet. YIN decided to call [facility] and let them know SW is sending information to see it they are even willing to approve her for skilled since she has used so many skilled days already. Await [facility]'s response. The thought is if they will not approve her for skilled she can go to any SNF that has alf beds which will give her more options. Nedra ROBLES MSW
[2020-05-17] MEDS: dilTIAZem CD 120 MG Capsule PO (11:08)
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
--- NOTE | 2020-05-17 14:59 | CASEMGMT ---
SW spoke with patient and told her that her son really wants her to pick the facility. SW told her that unfortunately she only has 2 options left as she did not want any of the other ones that were in network except [facility]. She said SW could check with [facility]. Her son is coming in tonight and they will talk about it. SW left the list of in network facilities in her room. YIN called [facility] and made referral as well as faxed referral. Await response. YIN has not heard from [facility] yet. Nedra ROBLES ENGLISH INSTRUCTOR
[2020-05-17] MEDS: Acetaminophen 325 MG Tablet 650 MG PO (21:10)
[2020-05-17] MEDS: Atorvastatin Calcium 10 MG Tablet PO (21:11)
[2020-05-17] MEDS: PARoxetine 10 MG Tablet PO (21:11)
[2020-05-18 03:00] VITALS: PULSE 103
[2020-05-18 03:10] VITALS: BP 115/61; PULSE 95; RESP 17; TEMP 36.5; O2SAT 95
[2020-05-18] MEDS: Levothyroxine 100 MCG Tablet PO (05:37)
[2020-05-18 07:00] VITALS: PULSE 99
[2020-05-18 07:48] VITALS: O2SAT 90
--- NOTE | 2020-05-18 09:04 | PCM.PN.CARD ---
Subjectve: The patient states she is feeling somewhat better overall. She has been up to the chair but she states she has not been up and ambulating. Objective: Vital Signs Temp Pulse Resp BP Pulse Ox 97.7 F L 99 17 115/61 95 05/18/20 03:10 05/18/20 07:00 05/18/20 03:10 05/18/20 03:10 05/18/20 03:10 Oxygen Flow Rate (L/min) 3 Oxygen Delivery Method Room Air Weight: 160 lb 14.999 oz Body Mass Index (BMI) 32.5 Finger Stick Blood Glucose 132 Intake and Output for Last 24 Hours 05/16/20 05/17/20 05/18/20 23:59 23:59 23:59 Intake Total 1905.16 / 1959.99 357.00 / 357.00 200 / 200 Output Total 750 / 750 450 / 450 400 / 400 Balance 1155.16 / 1209.99 -93.00 / -93.00 -200 / -200 General: Awake, Alert, Oriented x 3, Cooperative, No Acute Distress HEENT: Atraumatic, Normocephalic, PERRL, EOMI, Sclera Non Icteric Neck: Supple, Good ROM Lungs: Clear to auscultation Cardiovascular: Irregular Rhythm, Normal S1, Normal S2 Abdomen: Bowel Sounds Present, Soft Extremities: Trace RLE Edema, Trace LLE Edema Psych/Mental Status: Appropriate Rhythm: Atrial fibrillation/flutter Medical Necessity - Tobacco Use Smoking Status: Never smoker Assessment/Plan 1. Atrial fibrillation The patient has a longstanding history of atrial fibrillation. She has been on medical management with rate control in the past, antiarrhythmic therapy, and anticoagulant therapy. At the present time she has been changed from IV diltiazem therapy to oral diltiazem therapy. Her rate appears to be reasonably well controlled. Her antiarrhythmic therapy has been discontinued. She remains on anticoagulant therapy. She will continue conservative medical management with adjustment of her medications based upon her rate, blood pressure, etc. There are no plans for further attempts to regain sinus rhythm at this time. 2. Chronic diastolic mediated CHF At the present time she does not appear to have any acute on chronic diastolic mediated CHF issues. Her previous noninvasive studies have been reviewed. She will continue medical therapy as deemed appropriate. 3. Thoracic aortic aneurysm Her most recent chest CT scan comments upon elongation of her thoracic aorta but does not comment on any specific aneurysm. This can be reassessed as deemed appropriate. 4. Hypertension Her blood pressure can be followed. Her medications can be adjusted as deemed appropriate. 5. History of CVA She does have a history of CVA as well as a history of pulmonary emboli. Thus there are reasons that she should continue her anticoagulant therapy based on concerns of atrial fibrillation CVA and separately from her history of pulmonary emboli. Thus her anticoagulation should be continued unless otherwise contraindicated. Overall, the present time, it appears her course will continue with conservative medical management. She is undergone noninvasive evaluation this year. It does not appear the studies need to be repeated at this time. She does not appear to be in need of additional studies, especially invasive studies, at this time. This note was generated using a voice recognition system and there may be incorrect words, spelling or punctuation that were not noted when reviewing the office note prior to saving.
[2020-05-18 09:05] VITALS: BP 117/68; PULSE 112; RESP 20; TEMP 36.4; O2SAT 93
[2020-05-18] MEDS: dilTIAZem CD 120 MG Capsule PO (09:08)
[2020-05-18] MEDS: Furosemide 20 MG Tablet PO (09:08)
[2020-05-18] MEDS: Pantoprazole Sodium 40 MG Tablet PO (09:08)
[2020-05-18] MEDS: Allopurinol 300 MG Tablet PO (09:08)
--- NOTE | 2020-05-18 09:43 | CASEMGMT ---
YIN called Honey with [facility] and they did not receive YIN's fax yesterday. YIN re-faxed the clinicals to [facility]. Await pre-cert. YIN received a call from [facility] and they can accept patient. YIN told Apoorva that patient is ready today and YIN is waiting on [employer] to give approval. Plan: [facility] pending pre-cert. Nedra ROBLES MSW
--- NOTE | 2020-05-18 10:27 | CASEMGMT ---
YIN received a call from [facility] and patient was approved for [facility]. She suggested patient may want to consider staying in a SNF [facility]. SW told her patient and her son have already discussed this and she plans on staying in a alf [facility] this time. YIN will notify physician that patient was approved. Plan: [facility]
--- NOTE | 2020-05-18 11:27 | PCM.TXEXTCAR ---
- Diet 05/14/20 12:51 Diet: Cardiac - Heart Healthy Food consistency:: Regular Liquid Consistency:: Regular/Thin - Routine Orders/Code Status Enema Type: Fleetz Enema Frequency: Daily PRN Suppository Type: Dulcolax 10mg Suppository Frequency: Daily PRN O2 Frequency: Continuous Keep PO Greater than or Equal to (%): 90 - Wound(s) lfa Wound Type: Skin Tear lt grande Wound Type: Skin Tear - Therapies Physical Therapy: Eval and Treat Occupational Therapy: Eval and Treat - Allergies/Procedures Done in Hospital Allergies/Adverse Reactions: Allergies adhesive Allergy (Verified 05/14/20 08:49) Rash irbesartan Allergy (Verified 05/14/20 08:49) Unknown solifenacin [From Vesicare] Allergy (Verified 05/14/20 08:49) Unknown sulindac [Sulindac] Allergy (Verified 05/14/20 08:49) Unknown lisinopril Adverse Reaction (Verified 05/14/20 08:49) Other COUGH losartan potassium [From Cozaar] Adverse Reaction (Verified 05/14/20 08:49) Other metoprolol Adverse Reaction (Verified 05/14/20 08:49) GI Upset ramipril [From Altace] Adverse Reaction (Verified 05/14/20 08:49) Other tramadol Adverse Reaction (Verified 05/14/20 08:49) Unknown Procedures: None - Type of Care/Length of Stay Estimated LOS: Convalescent Care Less Than 30 days Type of Care Needed: Skilled Rehab Potential: Fair Prognosis: Fair - Additional Orders/Day of Discharge Day of Discharge: 05/18/20 - Dietary and Speech Recommendations Dietitian Recommendations/Changes: Rec continue liberal Cardiac diet w/ ONS medpass d/t decreased po intake - Follow Up Care Primary Care Physician: Denny Romano Chi, MD [Primary Care Provider] - Please follow up with your Primary Care Physician in: 1-2 weeks
--- NOTE | 2020-05-18 11:28 | PCM.DC.SUM ---
Discharge Date and Diagnosis - Problem List Patient Problems: Active and Suspected Problems (Last Reviewed 03/19/20 @ 14:[address] Naina Llamas DO) Debility (Acute) Multiple falls (Acute) Generalized weakness (Acute) Date of Admission: 05/14/20 Date of Discharge: 05/18/20 - Primary Discharge Diagnosis Acute Problems: Active Problems (Last Reviewed 03/19/20 @ 14:[address] Naina Llamas DO) Debility (Acute) Multiple falls (Acute) Generalized weakness (Acute) Afib with RVR - Secondary Discharge Diagnosis Chronic Problems: Chronic Problems (Last Reviewed 03/19/20 @ 14:[address] Naina Llamas DO) Pressure ulcer of right buttock, stage 2 (Chronic) Bilateral pulmonary embolism (Chronic) Chronic respiratory failure with hypoxia (Chronic) Gastric ulcer (Chronic) Stroke (Chronic) DVT (deep venous thrombosis) (Chronic) Atrial fibrillation (Chronic) Thoracic aortic aneurysm (Chronic) Chronic diastolic (congestive) heart failure (Chronic) COPD (chronic obstructive pulmonary disease) (Chronic) Gout (Chronic) Allergic rhinitis (Chronic) Hypokalemia (Chronic) Hyperlipidemia (Chronic) Obstructive sleep apnea (Chronic) Carotid stenosis (Chronic) Chronic kidney disease (Chronic) Dementia (Chronic) Meningioma (Chronic) Chronic diastolic heart failure (Chronic) Paroxysmal atrial fibrillation (Chronic) Diastolic CHF, acute (Chronic) Dyspnea on exertion (Chronic) Hyperparathyroidism (Chronic) Hypothyroidism (Chronic) Lymphomatoid papulosis (Chronic) Hypertension (Chronic) Obesity (Chronic) Right bundle branch block (Chronic) AV block, 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 No acute intracranial process. Electronically Signed: Jerod Card MD at 9:50 EDT Tel , Service support , Chest X-Ray 05/14/20 08:39 IMPRESSION: COPD changes. No active pulmonary disease. Electronically Signed: Jerod Card MD at 9:41 EDT Tel , Service support , Knee X-Ray 05/14/20 12:50 IMPRESSION: Status post total left knee replacement. Mild effusion. Electronically Signed: Sunny DO Edward at 16:09 EDT Tel [phone], Service support , Operations: None Procedures: None Summary of Care Provided: The patient is a 80 year old F with an extensive past medical history as outlined which includes A. fib and recurrent PEs, on Eliquis as well as CKD and right bundle branch block and a history of multiple falls. Patient was just discharged in a detention facility on 05/13/2020. She had been today on account of weakness and falls. She was discharged home and went home yesterday. At home, she was too weak to ambulate by herself and fell several times. She lives with her who is also elderly and has a son who comes by to help but does not live with her. She fell and was on the ground for about 30 minutes. She says her legs keep on giving out and she also complains of left knee pain. Review of symptoms otherwise negative. She denied any lightheadedness, dizziness, palpitations, nausea vomiting or diarrhea. Review of systems otherwise negative. On admission, she was found to have pulse rate of 110 with respiratory rate of 20, temperature of 98 and blood pressure of 103/69. Chemistry showed creatinine of 1.55 initial troponin was negative. CBC was essentially unremarkable. Chest x-ray showed no acute cardiopulmonary process and CT of the brain showed chronic involutional changes with no acute intracranial process. She was admitted to be managed for debility due to recurrent falls and family is open to long-term placement. PT OT was consulted. Patient stay was complicated by development of A. fib with RVR which necessitated Cardizem drip. Heart rate was subsequently controlled and cardiology was consulted. She was put on p.o. Cardizem to help with rate control in addition to the flecainide she was taking for rhythm control. Patient remained stable and was discharged to an accepting skilled custodial care facility on 05/18/2020. She is to follow-up with her primary care doctor in 1 week. Patient seen and examined prior to discharge. She had no complaints. Review of symptoms otherwise negative. Labs and vitals reviewed. Home medication reviewed and reconciled. O/E: Vital Signs Temp Pulse Resp BP Pulse Ox 97.6 F L 112 H 20 H 117/68 93 05/18/20 09:05 05/18/20 09:05 05/18/20 09:05 05/18/20 09:05 05/18/20 09:05 General: Alert, Oriented x3, Cooperative, No apparent distress HEENT: Atraumatic, PERRLA, EOMI, Normocephalic Oral: Dry Mucosa Neck: Supple, No JVD, Negative Carotid Bruits Lungs: Clear to auscultation, Normal air movement, No rhonchi, No wheeze, No rales Cardiovascular: Normal S1, Normal S2, No murmurs, Irregular Rate - afib, rate controlled Abdomen: Bowel Sounds Present, Soft, Non Tender Extremities: No clubbing, No cyanosis, No edema, Capillary Refill Less than 3 Seconds Skin: No rashes, No breakdown Musculoskeletal: - - left knee mildly swollen, minimally tender to touch Lymphatic: No Cervical, Supraclavicular, or Inguinal Adenopathy Neurological: Cranial nerves II-XII grossly intact, Neuro grossly intact, Motor Exam 5/5 strength throughout Psych/Mental Status: Normal Affect, Appropriate, Alert and oriented to time, place, person, mood and affect Plan is for discharge to long-term care facility today. Patient Problems: Active and Suspected Problems (Last Reviewed 03/19/20 @ 14:[address] Naina Llamas DO) Debility (Acute) Multiple falls (Acute) Generalized weakness (Acute) - Physical Exam Vitals/I&O's: Vital Signs Temp Pulse Resp BP Pulse Ox 97.6 F L 112 H 20 H 117/68 93 05/18/20 09:05 05/18/20 09:05 05/18/20 09:05 05/18/20 09:05 05/18/20 09:05 Oxygen Flow Rate (L/min) 3 Oxygen Delivery Method Room Air Weight: 160 lb 14.999 oz Body Mass Index (BMI) 32.5 Finger Stick Blood Glucose 132 Intake and Output for Last 24 Hours 05/16/20 05/17/20 05/18/20 23:59 23:59 23:59 Intake Total 1905.16 / 1959.99 357.00 / 357.00 200 / 200 Output Total 750 / 750 450 / 450 400 / 400 Balance 1155.16 / 1209.99 -93.00 / -93.00 -200 / -200 Laboratory Results 05/17/20 11:00: COVID-19 (LUIS) Not Detected Current Medications Acetaminophen (Tylenol) 650 mg PO Q6H PRN PRN PRN Reason: Pain Score 1-10/Temp > 100.7 F Last Admin: 05/17/20 21:10 Dose: 650 mg Documented by: Albuterol Sulfate (Ventolin Aerosols) 2.5 mg INHALATION Q6H PRN PRN PRN Reason: DYSPNEA Allopurinol (Zyloprim) 300 mg PO DAILY [facility] Last Admin: 05/18/20 09:08 Dose: 300 mg Documented by: Apixaban (Eliquis) 2.5 mg PO BID [facility] Last Admin: 05/17/20 21:10 Dose: 2.5 mg Documented by: Atorvastatin Calcium (Lipitor) 10 mg PO QHS [facility] Last Admin: 05/17/20 21:11 Dose: 10 mg Documented by: Colchicine (Colchicine) 0.6 mg PO DAILY [facility] Last Admin: 05/18/20 09:08 Dose: 0.6 mg Documented by: Diltiazem HCl (Cardizem Cd) 120 mg PO DAILY [facility] Last Admin: 05/18/20 09:08 Dose: 120 mg Documented by: Furosemide (Lasix) 20 mg PO DAILY [facility] Last Admin: 05/18/20 09:08 Dose: 20 mg Documented by: Sodium Chloride () 250 mls @ 15 mls/hr IV .[id number] PRN PRN Reason: Saline Flush Sodium Chloride () 250 mls @ 15 mls/hr IV .[id number] PRN PRN Reason: Additional IVPB Infusion Levothyroxine Sodium (Synthroid) 100 mcg PO [id number] [facility] Last Admin: 05/18/20 05:37 Dose: 100 mcg Documented by: Morphine Sulfate () 2 mg IV Q3H PRN PRN PRN Reason: Pain Score 6-10/10 Nutritional Formula (Lactose Free) (Ensure Enlive) 120 ml PO 4X/DAY [facility] Last Admin: 05/18/20 09:08 Dose: 120 ml Documented by: Ondansetron HCl (Zofran) 4 mg IV Q8H PRN PRN PRN Reason: NAUSEA/VOMITING Oxycodone HCl (Oxyir) 5 mg PO Q4H PRN PRN PRN Reason: Pain Score 4-5/10 Pantoprazole Sodium (Protonix) 40 mg PO DAILY [facility] Last Admin: 05/18/20 09:08 Dose: 40 mg Documented by: Paroxetine HCl (Paxil) 10 mg PO QHS [facility] Last Admin: 05/17/20 21:11 Dose: 10 mg Documented by: Potassium [facility] ([facility]Dur) [facility] Last Admin: 05/18/20 09:08 Dose: 10 meq Documented by: Sodium Chloride () 10 - 40 ml IV UD PRN PRN Reason: SALINE FLUSH Last Admin: 05/16/20 22:36 Dose: 10 ml Documented by: Discharge Diet: Low fat/ Low Cholesterol Discharge Activity: Use Walker Weight Bearing Status: Weight bearing as tolerated Call your doctor if you observe: Coldness, Increased Pain Home Medications: Medications to take at Discharge Atorvastatin Calcium [Lipitor] 10 mg PO QHS 04/17/17 levothyroxine 100 mcg tablet 100 mcg PO DAILY 09/27/17 flecainide 50 mg tablet 50 mg PO Q12H #180 tab 09/10/19 allopurinol 300 mg tablet 300 mg PO DAILY 03/03/20 Colchicine 0.6 mg PO DAILY 03/04/20 Apixaban [Eliquis] 2.5 mg PO BID 04/03/20 Pantoprazole Sodium 40 mg PO DAILY 04/03/20 Paroxetine [Paxil] 10 mg PO QHS 04/03/20 Acetaminophen [Tylenol Tablet] 650 mg PO Q6H PRN PRN tab 04/04/20 Albuterol Aerosols [Ventolin Aerosols] 2.5 mg INHALATION Q6H PRN PRN #1 vial 04/04/20 furosemide 20 mg tablet 20 mg PO DAILY 04/20/20 Loperamide [Imodium] 2 mg PO Q6H PRN PRN 05/14/20 Potassium Chloride 10 meq PO BID 05/14/20 Diltiazem CD [Cardizem CD] 120 mg PO DAILY #30 cap 05/18/20 Following Prescriptions Were Given to Patient: Diltiazem CD [Cardizem CD] 120 mg PO DAILY #30 cap Prescription Printed Primary Care Physician: Denny Romano Chi, MD [Primary Care Provider] - Please follow up with your Primary Care Physician in: 1-2 weeks Disposition: Detention facility Minutes spent on discharge:: 40 Patient Condition:: Stable Medical Necessity - Tobacco Use Smoking Status: Never smoker Meaningful Use Info Meaningful Use Diagnoses (Choose all that apply): None applicable Inpatient E&M: 95663 Disch Hosp
[2020-05-18] MEDS: APIXABAN 2.5 MG TABLET PO (11:38)
--- NOTE | 2020-05-18 12:19 | PHA.DC.MR ---
Pharmacy Service has performed discharge medication reconciliation for this patient. The patient's discharge medication list was reviewed for discrepancies and discrepancies were resolved. Home Medications Atorvastatin Calcium [Lipitor] 10 mg PO QHS 04/17/17 levothyroxine 100 mcg tablet 100 mcg PO DAILY 09/27/17 flecainide 50 mg tablet 50 mg PO Q12H #180 tab 09/10/19 allopurinol 300 mg tablet 300 mg PO DAILY 03/03/20 Colchicine 0.6 mg PO DAILY 03/04/20 Apixaban [Eliquis] 2.5 mg PO BID 04/03/20 Pantoprazole Sodium 40 mg PO DAILY 04/03/20 Paroxetine [Paxil] 10 mg PO QHS 04/03/20 Acetaminophen [Tylenol Tablet] 650 mg PO Q6H PRN PRN tab 04/04/20 Albuterol Aerosols [Ventolin Aerosols] 2.5 mg INHALATION Q6H PRN PRN #1 vial 04/04/20 furosemide 20 mg tablet 20 mg PO DAILY 04/20/20 Loperamide [Imodium] 2 mg PO Q6H PRN PRN 05/14/20 Potassium Chloride 10 meq PO BID 05/14/20 Diltiazem CD [Cardizem CD] 120 mg PO DAILY #30 cap 05/18/20
--- NOTE | 2020-05-18 13:30 | NURSING ---
Report called to [facility], spoke with nurse Guerin. aware of transfer.
--- NOTE | 2020-05-18 13:31 | CASEMGMT ---
YIN obtained orders from physician and faxed them to [facility]. 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 YIN called [facility] and arranged for patient to get picked up at via wheelchair van. SW notified patient. SW also called patient's son and let him know. SW also let him know they will get a bill for the wheelchair van as it is not covered by insurance. 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 He asked what he should do. 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 SW also told him that [facility] will be the ones that help him with the referral process. He thanked YIN for the assistance. YIN called Nereyda at [facility] and she said they do not have beds right now, but in a couple of weeks when the unit opens back up they will have beds. YIN told her about patient and that she is going to [facility] for rehab and after she wants to go to [facility] for fdc. Nereyda asked YIN to send her information and she will put her on the list. She will contact family in a week or so. 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 [facility] transported her via wheelchair van and family was notified of charge. Nedra ROBLES MSW
[2020-05-18 14:39] VITALS: BP 122/84; PULSE 108; RESP 18; TEMP 36.9; O2SAT 95
== END 2020-05-18 15:48 | disposition skilled nursing facility (03) | DRG 309 ==
LOC: ED 09:00 → MS3 11:24 → PCU 05-16 21:33
PROVIDERS: Family Medicine; Admitting Provider Student in an Organized Health Care Education/Training Program; Emergency Provider Emergency Medicine; PCP Family Medicine Geriatric Medicine; Visit Provider Student in an Organized Health Care Education/Training Program
DX: I48.0 Paroxysmal atrial fibrillation (principal); I50.32 Chronic diastolic (congestive) heart failure; I13.0 Hypertensive heart and chronic kidney disease with heart failure and stage 1 through stage 4 chronic kidney disease, or unspecified chronic kidney disease; J96.11 Chronic respiratory failure with hypoxia; R53.81 Other malaise; N18.3 Chronic kidney disease, stage 3 (moderate); R53.1 Weakness; R29.6 Repeated falls; I45.10 Unspecified right bundle-branch block; J44.9 Chronic obstructive pulmonary disease, unspecified; F03.90 Unspecified dementia, unspecified severity, without behavioral disturbance, psychotic disturbance, mood disturbance, and anxiety; E78.5 Hyperlipidemia, unspecified; E03.9 Hypothyroidism, unspecified; K21.9 Gastro-esophageal reflux disease without esophagitis; G47.33 Obstructive sleep apnea (adult) (pediatric); E66.9 Obesity, unspecified; F32.9 Major depressive disorder, single episode, unspecified; M1A.9XX0 Chronic gout, unspecified, without tophus (tophi); F41.9 Anxiety disorder, unspecified; M19.90 Unspecified osteoarthritis, unspecified site; Z86.718 Personal history of other venous thrombosis and embolism; Z91.81 History of falling; Z86.73 Personal history of transient ischemic attack (TIA), and cerebral infarction without residual deficits; Z68.34 Body mass index [BMI] 34.0-34.9, adult; I71.2 Thoracic aortic aneurysm, without rupture
CPT/HCPCS: 36415; 70450; 71045; 73562; 80048; 81001; 82550; 84484; 85025; 85610; 85730; 87635; 93005; 97110; 97163; 97166; 97530; 97802; 99285; C9803; A4216; U0003

== ENCOUNTER 2020-05-21 12:12 | Inpatient (IN) | payer MEDICARE, SELFPAY ==
[2020-05-14 12:24] VITALS: BMI 32.5
[2020-05-21] VITALS (26 sets, daily range): BP systolic 101–153; BP diastolic 58–101; PULSE 74–132; RESP 16–32; TEMP 36.6–37; O2SAT 93–99; BMI 34.7; BMI 32.3
--- NOTE | 2020-05-21 12:28 | EKG12_ITS ---
Test Reason : Blood Pressure : / mmHG Vent. Rate : 115 BPM Atrial Rate : 234 BPM P-R Int : 000 ms QRS Dur : 174 ms QT Int : 400 ms P-R-T Axes : 000 118 -19 degrees QTc Int : 553 ms Atrial flutter with variable A-V block Right bundle branch block Abnormal ECG Confirmed by SARAH CURTIS, EVA ([id number]), avid editor IZABELA CALLAWAY ([id number]) on 05/25/2020 11:23:43 AM Referred By: LESLIE Confirmed By:EVA SMITH MD
--- NOTE | 2020-05-21 12:28 | RAD_ITS ---
STUDY: X-RAY CHEST REASON FOR EXAM: Female, 80 years old. DIZZINESS EARLIER TODAY TECHNIQUE: Single AP portable view of the chest. COMPARISON: 05/14/2020 FINDINGS: Linear opacity in the lower right lung consistent with right lower lobe discoid atelectasis There is no demonstrated pleural abnormality. Normal size heart. Normal mediastinum and awais. Normal visualized pulmonary arteries. Normal visualized aortic arch and descending thoracic aorta. There is a dextroscoliosis of the thoracic spine. Normal visualized ribs, clavicles, and shoulders. There is no demonstrated abnormality of the visualized soft tissue structures of the upper abdomen. RAD/Chest 1 View (Portable) IMPRESSION: Some right lower lobe discoid atelectasis. Electronically Signed: William Benz MD at 13:28 EDT Tel , Service support ,
--- NOTE | 2020-05-21 12:31 | ED.DCSUM_ITS ---
History of Present Illness Chief Complaint: Mental Status Change Informant: Patient Narrative: 80-year-old female presenting for evaluation after an episode of dizziness that she had this morning. She states she was lying in bed. She states she was initially evaluated by EKG and then told just to go to the emergency room. She is currently a long term facility for 6 days and is quarantined. She has no chest pain, palpitations, shortness of breath, nausea, vomiting, diarrhea. She denies black or bloody stools. She states she is eating and drinking normally. She has no fevers or chills. Denies urinary frequency or dysuria. - Past Medical History (1) JESSICA (acute kidney injury) Status: Acute (2) Acute blood loss anemia Status: Acute (3) Atrial fibrillation with rapid ventricular response Status: Acute (4) Bradycardia Status: Acute Past Medical History - Allergies and Home Meds Allergies/Adverse Reactions: Allergies adhesive Allergy (Verified 05/14/20 08:49) Rash irbesartan Allergy (Verified 05/14/20 08:49) Unknown solifenacin [From Vesicare] Allergy (Verified 05/14/20 08:49) Unknown sulindac [Sulindac] Allergy (Verified 05/14/20 08:49) Unknown lisinopril Adverse Reaction (Verified 05/14/20 08:49) Other COUGH losartan potassium [From Cozaar] Adverse Reaction (Verified 05/14/20 08:49) Other metoprolol Adverse Reaction (Verified 05/14/20 08:49) GI Upset ramipril [From Altace] Adverse Reaction (Verified 05/14/20 08:49) Other tramadol Adverse Reaction (Verified 05/14/20 08:49) Unknown Primary Care Physician: Denny Romano Chi, MD [COURTESY STAFF PHYSICIAN] - Prior records reviewed: Yes Past Medical History: - - Reviewed and problem list Surgical History: appendectomy, cholecystectomy, herniorrhaphy - With mesh, extensive per patient, total hip arthroplasty - Right, total knee arthroplasty - Bilateral, - - Esophageal dilation Lives: Residential Smoking Status: Never smoker Alcohol: None Drugs: None - Family History Paternal Family History: Family History (Last Reviewed 04/03/20 @ 16:40 by Popeye FRANCOIS, PA) Father CVA (cerebral vascular accident) Mother CAD (coronary artery disease) Congestive heart failure Family History: Reports: Stroke, No pertinent history - No history of lung disease or autoimmune disease Maternal Family History: Family History (Last Reviewed 04/03/20 @ 16:40 by ALESSANDRO Lomeli) Father CVA (cerebral vascular accident) Mother CAD (coronary artery disease) Congestive heart failure Family History: Reports: Stroke, No pertinent history - No history of lung disease autoimmune disease Review of Systems General: Reports: - - Resolved episode of dizziness. Denies: Chills, Fever, Sweats Eyes: Denies: Visual changes - bilaterally, Diplopia ENT: Denies: Rhinorrhea, Sore throat Cardiovascular: Denies: Chest pain, Palpitations Respiratory: Denies: Dyspnea, Cough, Dyspnea on exertion Gastrointestinal: Denies: Abdominal pain, Nausea, Vomiting, Diarrhea, Melena, Hematochezia Genitourinary: Denies: Dysuria, Hematuria, Frequency Musculoskeletal: Denies: Back pain, Extremity Pain Skin: Denies: Rash, Wounds Neurological: Denies: Headache, Weakness, Numbness Physical Exam Vital Signs/Narrative: Vital Signs Temp Pulse Resp BP Pulse Ox 05/21/20 12:16 98.6 F 121 H 18 139/80 H 96 Inital Vital Signs reviewed: Yes General: Well nourished, No Acute Distress Head: Normocephalic, Atraumatic Eyes: Perrl, EOMI ENT: Moist mucous membranes, No rhinorrhea Neck: Supple, Nontender Cardiovascular: Regular rate, Regular rhythm Respiratory: No distress, CTA bilaterally Abdomen: Soft, Nontender, Nondistended Back: Nontender, Normal Inspection Extremities: Nontender, No edema Skin: Normal color, No rash Neurological: Alert, Oriented x3, Cranial nerves II-XII grossly intact Psychological: Normal affect, Normal Mood Diagnostic/Tx/Re-eval Clinical Impression(s) from Imaging Studies Chest X-Ray 05/21/20 12:28 IMPRESSION: Some right lower lobe discoid atelectasis. Electronically Signed: William Benz MD at 13:28 EDT Tel , Service support , Laboratory Data 05/21/20 05/21/20 05/21/20 12:40 12:40 13:00 WBC 8.3 RBC 3.45 L Hgb 10.5 L Hct 33.2 L MCV 96.2 MCH 30.4 MCHC 31.6 L RDW Std Deviation 57.7 H RDW Coeff of Cricket 16.6 H Plt Count 318 MPV 11.8 Immature Gran % (Auto) 0.700 Neut % (Auto) 77.2 H Lymph % (Auto) 11.3 L [place] % (Auto) 9.7 Eos % (Auto) 0.7 Baso % (Auto) 0.4 Absolute Neuts (auto) 6.4 Absolute Lymphs (auto) 0.94 Nucleated RBC % 0 Sodium 141 Potassium 4.0 Chloride 106 Carbon Dioxide 31.0 Anion Gap 4 L BUN 24 H Creatinine 1.30 H Estim Creat Clear Calc 41.02 Est GFR (MDRD) Af Amer 50 L Est GFR (MDRD) Non-Af 42 L BUN/Creatinine Ratio 18.5 Glucose 100 Calcium 10.5 H Total Bilirubin 1.20 H AST 39 H ALT 37 Alkaline Phosphatase 121 H Troponin I 0.021 Total Protein 6.3 L Albumin 2.7 L Globulin 3.6 Albumin/Globulin Ratio 0.8 L Urine Color Yellow Urine Clarity Clear Urine pH 6.5 Ur Specific [place] 1.010 Urine Protein 30 H Urine Glucose (UA) Normal Urine Ketones Negative Urine Occult Blood 10 H Urine Nitrite Negative Urine Bilirubin Negative Urine Urobilinogen 4 H Ur Leukocyte Esterase 500 H Urine RBC 0 SEEN Urine WBC 10-25 SEEN Ur Squamous Epith Cells 0 SEEN Urine Bacteria 0 SEEN Urine Mucus 0 SEEN - EKG Initial EKG Interpretation: Atrial Fibrillation, Atrial Flutter - Medical Decision Making Patient is seen and evaluated on arrival for confusion at the intermediate however she does not appear to be confused. She is alert and oriented x3. She has no focal neurologic deficits. Not complaining of chest pain, shortness of breath. Patient's lab work appears to be stable. Chest x-ray is negative. EKG appears to be a flutter. Patient was given multiple doses of Cardizem without improvement. At this point I will start her on a Cardizem drip and admitted to the hospital. She was found to have a UTI and she will be treated for this with Rocephin. Urine culture is sent. Discussed with Dr. Ashton on admission. Impression 1. A flutter 2. UTI ED Disposition - Plan for ED Patient: Instructions: ED AFIB, Understanding Urinary Tract Infections (UTIs) Prescriptions: Cephalexin [Keflex] 500 mg PO BID 7 Days #14 cap Prescription Printed Referrals: Denny Romano Chi, MD [COURTESY STAFF PHYSICIAN] -
[2020-05-21 12:57] LABS: Absolute Lymphocyte Count 0.94 X10^3/uL (0.83-4.51); Absolute Neutrophil Count 6.4 X10^3/uL (2.0-7.7); Basophil# 0.03 X10^3/uL; Basophil% 0.4 % (0-1); Eosinophil# 0.06 X10^3/uL; Eosinophils% 0.7 % (0-5); Hematocrit 33.2 % (37-47); Hemoglobin 10.5 g/dL (12.0-15.0); Lymphocyte # 0.94 X10^3/ul (4.0); Lymphocyte % 11.3 % (19-41); Mean Corp Hgb Conc 31.6 g/dL (32-36); Mean Corpuscular Hgb 30.4 pg (27.0-32.0); Mean Corpuscular Volume 96.2 fL (81-99); Mean Platelet Vol. 11.8 fl (6.2-12.0); Monocyte% 9.7 % (0-10); NRBC Flagged by Analyzer 0 % (0-5); Neutrophil % 77.2 % (47-70); Platelet Count 318 K/mm3 (150-450); RBC Distribution Width CV 16.6 % (11.6-14.6); RBC Distribution Width SD 57.7 fl (35.1-43.9); Red Blood Count 3.45 M/mm3 (4.2-5.4); White Blood Count 8.3 K/mm3 (4.4-11.0)
[2020-05-21 13:07] LABS: Bacteria 0 SEEN /hpf (None Seen); Mucous, Urine 0 SEEN /hpf (<or=2+); Red Blood Cells-Urine 0 SEEN /hpf (0-5); Squamous Epithelial Cells - UA 0 SEEN /hpf (5-10)
[2020-05-21 13:09] LABS: Color, Urine Yellow (Yellow); Glucose, Dipstick Normal (Normal); Ketone-Dipstick Negative (Negative); Leukocyte Esterase-Dipstick 500 /ul (Negative); Nitrite-Dipstick Negative (Negative); Occult Blood-Urine 10 /ul (Negative); Protein-Dipstick 30 mg/dl (Negative); Urine Bilirubin Dipstick Negative (Negative); Urine Clarity Clear (Clear); Urine Urobilinogen 4 mg/dl (Normal); Urine pH 6.5 (5.0 - 8.0)
[2020-05-21] MEDS: dilTIAZem 25 MG/5 ML Vial 10 MG IV BOLUS ×2 (13:09→14:04)
[2020-05-21 13:15] LABS: White Blood Cells 10-25 SEEN /hpf (0-5)
[2020-05-21 14:08] LABS: ALB/GLOB Ratio 0.8 RATIO (0.9-2.4); AST(SGOT) 39 U/L (15-37); Alanine Aminotransfer ALT/SGPT 37 U/L (13-56); Albumin, Serum 2.7 g/dL (3.2-5.0); Alkaline Phosphatase 121 U/L (45-117); Anion Gap 4 (5-15); BUN 24 mg/dL (7-18); BUN/Creat Ratio 18.5 RATIO (10-20); Calcium,Total 10.5 mg/dL (8.5-10.1); Chloride 106 mmol/L (98-107); EST Glomerular Filtration Rate 42 mL/min (>60); Est Glom Filt Rate - Afr Amer 50 mL/min (>60); Estimated Creatinine Clearance 41.02 ml/min; Globulin 3.6 g/dL (2.2-4.2); Glucose 100 mg/dL (74-106); Protein, Total 6.3 g/dL (6.4-8.2); Sodium Level 141 mmol/L (136-145)
[2020-05-21] MEDS: dilTIAZem 25 MG/5 ML Vial 20 MG IV BOLUS (15:04)
--- NOTE | 2020-05-21 15:23 | ED.RN ---
PT REQUESTS TO SPEAK WITH SON. THIS RN CONTACTED PT SON WITH PT PERMISSION AND INFORMED HOME OF PT ADMISSION. PT ON PHONE WITH SON. AWAITING HOSPITALIST. PT GIVEN WATER AND A SANDWICH TO EAT.
--- NOTE | 2020-05-21 15:24 | HP.PCM_ITS ---
History of Present Illness Date of Admission: 05/21/20 Chief Complaint: tachycardia The patient is a 80 year old F with an extensive past medical history as outlined. She was admitted through the ED on 05/21/2020 with a complaint of altered mental status and tachycardia. Patient is well-known to me from a rec ent previous admission for debility in which she developed A. fib with RVR which required changes to her medication. She was discharged to a [facility] endorsed to home from where she was admitted today with a complaint of altered mental status and dizziness as well as palpitations. Patient states she was lying in bed and was found to be dizzy. An EKG done showed A. fib with RVR. She tells me she was evaluated by physician there and she was told she would need to come to the ED. She denied any fever, chills, admitted to mild shortness of breath, denied any chest pain, nausea vomiting or diarrhea. She does state that she has been having frequent urination but no burning with urination. In the ED, vitals were temperature of 90.6 Fahrenheit with pulse rate of 118 and respiratory rate of 24 as well as BP of 113/86. She was saturating at 95% on 2 L of oxygen.. Of note however heart rate was up to 132 during her stay in the ED. Chest x-ray showed some right lower lobe discoid ate lectasis. CMP showed creatinine of 1.3 and calcium of 10.5. Initial troponin was negative. CBC showed hemoglobin of 10.5 with WBC of 8.3 and platelets of 318. EKG showed atrial flutter, with variable AV block. UA showed 10-25 WBC with 500 leukocyte esterase but 0 bacteria. She is being admitted to to be managed for A. fib with RVR and UTI. [] Past Medical History Past Medical History (Chronic Problems): Chronic Problems (Last Reviewed 03/19/20 @ 14:[address] Naina Llamas DO) Pressure ulcer of right buttock, stage 2 (Chronic) Bilateral pulmonary embolism (Chronic) Chronic respiratory failure with hypoxia (Chronic) Gastric ulcer (Chronic) Stroke (Chronic) DVT (deep venous thrombosis) (Chronic) Atrial fibrillation (Chronic) Thoracic aortic aneurysm (Chronic) Chronic diastolic (congestive) heart failure (Chronic) COPD (chronic obstructive pulmonary disease) (Chronic) Gout (Chronic) Allergic rhinitis (Chronic) Hypokalemia (Chronic) Hyperlipidemia (Chronic) Obstructive sleep apnea (Chronic) Carotid stenosis (Chronic) Chronic kidney disease (Chronic) Dementia (Chronic) Meningioma (Chronic) Chronic diastolic heart failure (Chronic) Paroxysmal atrial fibrillation (Chronic) Diastolic CHF, acute (Chronic) Dyspnea on exertion (Chronic) Hyperparathyroidism (Chronic) Hypothyroidism (Chronic) Lymphomatoid papulosis (Chronic) Hypertension (Chronic) Obesity (Chronic) Right bundle branch block (Chronic) AV block, 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 Naina Llamas, DO) Hyperlipidemia (Chronic) E78.5 Obstructive sleep apnea (Chronic) G47.33 Carotid stenosis (Chronic) I65.29 Chronic kidney disease (Chronic) N18.9 Dementia (Chronic) F03.90 Meningioma (Chronic) D32.9 Chronic diastolic heart failure (Chronic) I50.32 Paroxysmal atrial fibrillation (Chronic) I48.0 Diastolic CHF, acute (Chronic) I50.31 Dyspnea on exertion (Chronic) R06.09 Hyperparathyroidism (Chronic) E21.3 Hypothyroidism (Chronic) E03.9 Lymphomatoid papulosis (Chronic) C86.6 Hypertension (Chronic) I10 Obesity (Chronic) E66.9 Right bundle branch block (Chronic) I45.10 AV block, 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) I44.0 GERD (gastroesophageal reflux disease) (Chronic) K21.9 Anxiety and depression (Chronic) F41.9, F32.9 Thoracic aortic aneurysm (Chronic) I71.2 3.9 cm History of CVA (cerebrovascular accident) (Chronic) Z86.73 Osteoarthritis M19.90 Allergies adhesive Allergy (Verified 05/14/20 08:49) Rash irbesartan Allergy (Verified 05/14/20 08:49) Unknown solifenacin [From Vesicare] Allergy (Verified 05/14/20 08:49) Unknown sulindac [Sulindac] Allergy (Verified 05/14/20 08:49) Unknown lisinopril Adverse Reaction (Verified 05/14/20 08:49) Other COUGH losartan potassium [From Cozaar] Adverse Reaction (Verified 09/05/20 08:49) Other metoprolol Adverse Reaction (Verified 05/14/20 08:49) GI Upset ramipril [From Altace] Adverse Reaction (Verified 05/14/20 08:49) Other tramadol Adverse Reaction (Verified 05/14/20 08:49) Unknown Home Medications: Ambulatory Orders Medication Instructions Recorded Atorvastatin Calcium [Lipitor] 10 mg PO QHS 04/17/17 levothyroxine 100 mcg tablet 100 mcg PO DAILY 09/27/17 flecainide 50 mg tablet 50 mg PO Q12H #180 tab 09/10/19 allopurinol 300 mg tablet 300 mg PO DAILY 03/03/20 Colchicine 0.6 mg PO DAILY 03/04/20 Apixaban [Eliquis] 2.5 mg PO BID 04/03/20 Pantoprazole Sodium 40 mg PO DAILY 04/03/20 Paroxetine [Paxil] 10 mg PO QHS 04/03/20 Albuterol Aerosols [Ventolin 2.5 mg INHALATION Q6H PRN PRN #1 04/04/20 Aerosols] vial furosemide 20 mg tablet 20 mg PO DAILY 04/20/20 Loperamide [Imodium] 2 mg PO Q6H PRN PRN 05/14/20 Potassium Chloride 10 meq PO BID 05/14/20 Diltiazem CD [Cardizem CD] 120 mg PO DAILY #30 cap 05/18/20 Acetaminophen 2 tab PO Q4H PRN PRN 05/21/20 Surgical History: Surgical History (Last Reviewed 03/19/20 @ 14:[address] 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 Lives: [facility] Smoking Status: Never smoker Alcohol: None Drugs: None - *Family History Paternal Family History: Family History (Last Reviewed 04/03/20 @ 16:40 by Popeye Robert PA, PA) Father CVA (cerebral vascular accident) Mother CAD (coronary artery disease) Congestive heart failure History Items: Stroke, No pertinent history - No history of lung disease or autoimmune disease Maternal Family History: Family History (Last Reviewed 04/03/20 @ 16:40 by Popeye FRANCOIS, PA) Father CVA (cerebral vascular accident) Mother CAD (coronary artery disease) Congestive heart failure History Items: Stroke, No pertinent history - No history of lung disease autoimmune disease Review of Systems Constitutional: Denies: Chills, Fever, Weight Change Eyes: Denies: Blurred vision HEENT: Denies: Head Aches, Sinus Congestion, Sinus Drainage Cardiovascular: Denies: Chest Pain, Chest Tightness, Edema, Heaviness, Light Headedness, Palpitations, Syncope Respiratory: Denies: Cough, Shortness of Breath, Shortness of breath at rest, Shortness of breath upon exertion, Sputum production Gastrointestinal: Denies: Abdominal Pain, Nausea, Vomiting Genitourinary: Reports: Frequency. Denies: Dysuria Musculoskeletal: Denies: Joint Pain, Joint Tenderness Skin: Denies: Rash, Wounds Neurological: Denies: Numbness, Tingling, Focal weakness Psychiatric: Denies: Anxiety, Depression, Homicidal Ideations, Suicidal Ideations Hematologic/ Lymphatic: Denies: Easy Bruising, Easy Bleeding VTE Information - Inpt Only VTE Present on Admission: No VTE Pharm Prophylaxis ordered?: Yes - Physical Exam Vitals/I&O's: Vital Signs Temp Pulse Resp BP Pulse Ox 98.6 F 91 17 118/63 96 05/21/20 12:16 05/21/20 15:09 05/21/20 15:09 05/21/20 15:09 05/21/20 15:09 Oxygen Flow Rate (L/min) 2 Oxygen Delivery Method Nasal Cannula Weight: 171 lb 11.2 oz Body Mass Index (BMI) 34.7 Finger Stick Blood Glucose 132 General: Alert, Oriented x3, Cooperative, - - agitated HEENT: Atraumatic, PERRLA, EOMI, Normocephalic Oral: Dry Mucosa Neck: Supple, No JVD, Negative Carotid Bruits Lungs: Clear to auscultation, Normal air movement, No rhonchi, No wheeze, No rales, - - on 2L of oxygen. Cardiovascular: Irregular Rate - afib with RVR, Tachycardic Abdomen: Bowel Sounds Present, Soft, Non Tender Extremities: No clubbing, No cyanosis, No edema, Capillary Refill Less than 3 Seconds Skin: No rashes, No breakdown Musculoskeletal: No Tenderness to Palpation of Joints or Extremities Lymphatic: No Cervical, Supraclavicular, or Inguinal Adenopathy Neurological: Cranial nerves II-XII grossly intact, Neuro grossly intact, Motor Exam 5/5 strength throughout Psych/Mental Status: Agitated, Alert and oriented to time, place, person, mood and affect Laboratory Results 05/21/20 12:40: WBC 8.3, RBC 3.45 L, Hgb 10.5 L, Hct 33.2 L, MCV 96.2, MCH 30.4, MCHC 31.6 L, RDW Std Deviation 57.7 H, RDW Coeff of Cricket 16.6 H, Plt Count 318, MPV 11.8, Immature Gran % (Auto) 0.700, Neut % (Auto) 77.2 H, Lymph % (Auto) 11.3 L, [place] % (Auto) 9.7, Eos % (Auto) 0.7, Baso % (Auto) 0.4, Absolute Neuts (auto) 6.4, Absolute Lymphs (auto) 0.94, Nucleated RBC % 0 05/21/20 12:40: Sodium 141, Potassium 4.0, Chloride 106, Carbon Dioxide 31.0, Anion Gap 4 L, BUN 24 H, Creatinine 1.30 H, Estim Creat Clear Calc 41.02, Est GFR (MDRD) Af Amer 50 L, Est GFR (MDRD) Non-Af 42 L, BUN/Creatinine Ratio 18.5, Glucose 100, Calcium 10.5 H, Total Bilirubin 1.20 H, AST 39 H, ALT 37, Alkaline Phosphatase 121 H, Troponin I 0.021, Total Protein 6.3 L, Albumin 2.7 L, Globulin 3.6, Albumin/Globulin Ratio 0.8 L 05/21/20 13:00: Urine Color Yellow, Urine Clarity Clear, Urine pH 6.5, Ur Specific [place] 1.010, Urine Protein 30 H, Urine Glucose (UA) Normal, Urine Ketones Negative, Urine Occult Blood 10 H, Urine Nitrite Negative, Urine Bilirubin Negative, Urine Urobilinogen 4 H, Ur Leukocyte Esterase 500 H, Urine RBC 0 SEEN, Urine WBC 10-25 SEEN, Ur Squamous Epith Cells 0 SEEN, Urine Bacteria 0 SEEN, Urine Mucus 0 SEEN Diagnostic Data Chest X-Ray 05/21/20 12:28 IMPRESSION: Some right lower lobe discoid atelectasis. Electronically Signed: William Benz MD at 13:28 EDT Tel , Service support , Current Medications Diltiazem HCl 125 mg/ Dextrose 125 mls @ 5 mls/hr IV .Q25H CHALINO; Protocol Ceftriaxone Sodium (Rocephin) 1 gm in 50 mls @ 100 mls/hr IV X1 ONE Stop: 05/21/20 15:46 Assessment/Plan All Active Problems (Last Reviewed 03/19/20 @ 14:[address] Naina Llamas, ) Upper GI bleeding (Acute) Acute blood loss anemia (Acute) Atrial fibrillation with rapid ventricular response (Acute) Dyspnea (Acute) Back pain (Acute) Debility (Acute) Shortness of breath (Acute) Left ankle sprain (Acute) Multiple falls (Acute) JESSICA (acute kidney injury) (Acute) Generalized weakness (Acute) Bradycardia (Acute) Confusion (Resolved) Esophageal stricture (Resolved) Expressive aphasia (Resolved) Hypoxia (Resolved) 80-year-old admitted with a complaint of altered mental status and tachycardia as well as dizziness. # Afib with RVR * HR in the 110s and 120s * on cardizem and flecainide. now on cardizem drip * IV lopressor prn. * cardiology consulted- per discussion with Dr Aponte, will give IV digoxin 0.5mg x 1. medications to be further adjusted as per cardiology * potassium WNL * # UTI; UA showed no bacteria, but UA showed 10-25 wbcs. Will start on IV ceftriaxone. 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 continue lasix o/a of hypercalcemia # hyperlipidemia: on statin # Hypothyroidism: on synthroid # Gout: on allopurinol #CKD 3: Cr is 1.3. Will moitor # hypercalcemia: calcium is 10.5. likely due to CKD 3. 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
[2020-05-21] MEDS: Ceftriaxone 1 GM/50 ML BAG IV (15:50)
--- NOTE | 2020-05-21 16:00 | CM.ED ---
SOCIAL WORK Received call from patient's son/HPOA, Prakash Casey (H) [phone] (C) [phone] voicing frustrations and concerns with patient's decision making. Son stating patient is stating does not want to return to nursing facility in [place]. Son states patient just discharged to facility on Saturday. Discussed patient's current condition and plan for admission. Son states patient is not able to return home as he and his father cannot care for patient. Son states she needs multiple people to help her get out of a chair. Son states prior to last hospitalization patient was having frequent falls at home. Education and emotional support provided to son. Plan: Admit, SW to follow up for safe and appropriate discharge planning. Beronica Wilson, CELLOPHANER, X RAY OPERATOR
[2020-05-21 17:36] LABS: BNP,B-Type NATRIURETIC PEPTIDE 171.3 pg/mL (0-100)
[2020-05-21] MEDS: Digoxin 250 MCG/ML Ampul 500 MCG IV (17:55)
[2020-05-21] MEDS: 0.9% Saline Lock 10 ML Syringe IV ×2 (17:57→21:10)
--- NOTE | 2020-05-21 18:54 | NURSING ---
Called Leah at and spoke to nurse Irwin regarding med list. Provided fax #.
[2020-05-21] MEDS: Carvedilol 3.125 MG TABLET PO (20:37)
[2020-05-21] MEDS: PARoxetine 10 MG Tablet PO (20:37)
[2020-05-21] MEDS: Nystatin Powder 15gm Bottle 1 APPLIC TOPICAL (20:37)
[2020-05-21] MEDS: Atorvastatin Calcium 10 MG Tablet PO (20:37)
[2020-05-21] MEDS: APIXABAN 2.5 MG TABLET PO (20:37)
--- NOTE | 2020-05-21 20:37 | NURSING ---
Pt requesting to have night meds at this time.
[2020-05-21 21:00] LABS: Magnesium 2.2 mg/dL (1.6-2.6)
[2020-05-21] MEDS: Digoxin 250 MCG/ML Ampul IV (21:05)
[2020-05-22] VITALS (28 sets, daily range): BP systolic 115–156; BP diastolic 55–120; PULSE 57–86; RESP 17–28; TEMP 36.1–36.8; O2SAT 93–99
[2020-05-22] MEDS: Nystatin Powder 15gm Bottle 1 APPLIC TOPICAL ×3 (05:19→21:36)
[2020-05-22 06:33] LABS: Absolute Lymphocyte Count 1.24 X10^3/uL (0.83-4.51); Absolute Neutrophil Count 5.6 X10^3/uL (2.0-7.7); Basophil# 0.03 X10^3/uL; Basophil% 0.4 % (0-1); Eosinophil# 0.16 X10^3/uL; Eosinophils% 2.1 % (0-5); Hematocrit 32.1 % (37-47); Hemoglobin 9.9 g/dL (12.0-15.0); Lymphocyte # 1.24 X10^3/ul (4.0); Lymphocyte % 15.9 % (19-41); Mean Corp Hgb Conc 30.8 g/dL (32-36); Mean Corpuscular Volume 97.3 fL (81-99); Monocyte# 0.78 X10^3/uL; NRBC Flagged by Analyzer 0 % (0-5); Neutrophil # 5.55 X10^3/uL (2.7-7.7); Neutrophil % 71.1 % (47-70); Platelet Count 314 K/mm3 (150-450); RBC Distribution Width CV 16.6 % (11.6-14.6); RBC Distribution Width SD 58.2 fl (35.1-43.9); White Blood Count 7.8 K/mm3 (4.4-11.0)
[2020-05-22 06:49] LABS: Anion Gap 4 (5-15); BUN 19 mg/dL (7-18); BUN/Creat Ratio 18.4 RATIO (10-20); Calcium,Total 10.5 mg/dL (8.5-10.1); Chloride 107 mmol/L (98-107); Creatinine, Serum 1.03 mg/dL (0.55-1.02); EST Glomerular Filtration Rate 55 mL/min (>60); Est Glom Filt Rate - Afr Amer 66 mL/min (>60); Estimated Creatinine Clearance 48.06 ml/min; Glucose 93 mg/dL (74-106); Magnesium 2.4 mg/dL (1.6-2.6); Potassium 4.3 mmol/L (3.5-5.1); Sodium Level 139 mmol/L (136-145)
[2020-05-22] MEDS: Allopurinol 300 MG Tablet PO (08:32)
--- NOTE | 2020-05-22 08:35 | PCM.CONS.C ---
Problem List (1) Atrial fibrillation with rapid ventricular response Status: Acute (2) Generalized weakness Status: Acute Reason for Consult Date of Consultation: 05/21/20 Reason for Consultation: Atrial fibrillation with fast ventricular rate History of Present Illness: The patient is a 80 year old F [was standing from the [place] [facility] because of weakness and dizziness. She was found to have atrial fibrillation and fast ventricular rate. She has had atrial fibrillation for a long period time. In the past she has undergone cardioversion. Despite on flecainide patient has returned to atrial fibrillation. Patient had history of CVA, chronic DVT and in March 2020 patient was diagnosed to have pulmonary embolism, anticoagulation was resumed. Despite that, patient has had no recurrence of GI bleed. She is a poor historian. Most of the history obtained through the medical record. She has had limited mobility because of pain in the knees. When I saw her today her heart rates in the 100s despite IV digoxin 0.5 mg dose. Recent admission patient had stress echo which was normal. It also showed diastolic dysfunction of the left ventricle. Systolic ejection fraction was around 60%. There were no significant valvular lesion.] Past Medical History Allergies/Adverse Reactions: Allergies adhesive Allergy (Verified 05/14/20 08:49) Rash irbesartan Allergy (Verified 05/14/20 08:49) Unknown solifenacin [From Vesicare] Allergy (Verified 05/14/20 08:49) Unknown sulindac [Sulindac] Allergy (Verified 05/14/20 08:49) Unknown lisinopril Adverse Reaction (Verified 05/14/20 08:49) Other COUGH losartan potassium [From Cozaar] Adverse Reaction (Verified 05/14/20 08:49) Other metoprolol Adverse Reaction (Verified 05/14/20 08:49) GI Upset ramipril [From Altace] Adverse Reaction (Verified 05/14/20 08:49) Other tramadol Adverse Reaction (Verified 05/14/20 08:49) Unknown Home Medications: Ambulatory Orders Medication Instructions Recorded Atorvastatin Calcium [Lipitor] 10 mg PO QHS 04/17/17 levothyroxine 100 mcg tablet 100 mcg PO DAILY 09/27/17 flecainide 50 mg tablet 50 mg PO Q12H #180 tab 09/10/19 allopurinol 300 mg tablet 300 mg PO DAILY 03/03/20 Colchicine 0.6 mg PO DAILY 03/04/20 Apixaban [Eliquis] 2.5 mg PO BID 04/03/20 Pantoprazole Sodium 40 mg PO DAILY 04/03/20 Paroxetine [Paxil] 10 mg PO QHS 04/03/20 Albuterol Aerosols [Ventolin 2.5 mg INHALATION Q6H PRN PRN #1 04/04/20 Aerosols] vial furosemide 20 mg tablet 20 mg PO DAILY 04/20/20 Loperamide [Imodium] 2 mg PO Q6H PRN PRN 05/14/20 Potassium Chloride 10 meq PO BID 05/14/20 Diltiazem CD [Cardizem CD] 120 mg PO DAILY #30 cap 05/18/20 Acetaminophen 2 tab PO Q4H PRN PRN 05/21/20 Past Medical History (Chronic Problems): Chronic Problems (Last Reviewed 03/19/20 @ 14:[address] Naina Llamas, DO) Pressure ulcer of right buttock, stage 2 (Chronic) Bilateral pulmonary embolism (Chronic) Chronic respiratory failure with hypoxia (Chronic) Gastric ulcer (Chronic) Stroke (Chronic) DVT (deep venous thrombosis) (Chronic) Atrial fibrillation (Chronic) Thoracic aortic aneurysm (Chronic) Chronic diastolic (congestive) heart failure (Chronic) COPD (chronic obstructive pulmonary disease) (Chronic) Gout (Chronic) Allergic rhinitis (Chronic) Hypokalemia (Chronic) Hyperlipidemia (Chronic) Obstructive sleep apnea (Chronic) Carotid stenosis (Chronic) Chronic kidney disease (Chronic) Dementia (Chronic) Meningioma (Chronic) Chronic diastolic heart failure (Chronic) Paroxysmal atrial fibrillation (Chronic) Diastolic CHF, acute (Chronic) Dyspnea on exertion (Chronic) Hyperparathyroidism (Chronic) Hypothyroidism (Chronic) Lymphomatoid papulosis (Chronic) Hypertension (Chronic) Obesity (Chronic) Right bundle branch block (Chronic) AV block, 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) GERD (gastroesophageal reflux disease) (Chronic) History of esophageal dilatation (Chronic) Anxiety and depression (Chronic) Thoracic aortic aneurysm (Chronic) 3.9 cm History of CVA (cerebrovascular accident) (Chronic) Surgical History: appendectomy, cholecystectomy, herniorrhaphy - With mesh, extensive per patient, total hip arthroplasty - Right, total knee arthroplasty - Bilateral, - - Esophageal dilation Psychiatric History: No pertinent psych hx [employer] History: - - Tubal ligation - *Family History Paternal Family History: Family History (Last Reviewed 04/03/20 @ 16:40 by ALESSANDRO Lomeli) Father CVA (cerebral vascular accident) Mother CAD (coronary artery disease) Congestive heart failure History Items: Stroke, No pertinent history - No history of lung disease or autoimmune disease Maternal Family History: Family History (Last Reviewed 04/03/20 @ 16:40 by ALESSANDRO Lomeli) Father CVA (cerebral vascular accident) Mother CAD (coronary artery disease) Congestive heart failure History Items: Stroke, No pertinent history - No history of lung disease autoimmune disease Lives: Jail Smoking Status: Never smoker Alcohol: None Drugs: None Review of Systems - Review of Systems General: Reports: Fatigue Cardiovascular: Reports: Shortness of Breath. Denies: Chest Discomfort, Orthopnea, PND, Peripheral Edema, Palpitations, Lightheadedness, Dizziness, Near Syncope, Syncope Respiratory: Denies: Cough, Sputum Production, Hemoptysis Gastrointestinal: Reports: - - History of GI bleed. Denies: Hematemesis, Hematochezia, Melena Muscoloskeletal: Reports: - - Knee pain Neurological: Reports: Dizziness, Falls, History of CVA Hematologic/ Lymphatic: Reports: Anemia Objective: Vital Signs Temp Pulse Resp BP Pulse Ox 98.3 F 57 L 17 127/58 H 98 05/22/20 06:00 05/22/20 07:00 05/22/20 07:00 05/22/20 07:00 05/22/20 08:18 Oxygen Flow Rate (L/min) 2 Oxygen Delivery Method Nasal Cannula Weight: 159 lb 6.307 oz Body Mass Index (BMI) 32.3 Finger Stick Blood Glucose 132 Intake and Output for Last 24 Hours 05/20/20 05/21/20 05/22/20 23:59 23:59 23:59 Intake Total 114.5 / 124.5 71.50 / 71.50 Output Total 300 / 300 250 / 250 Balance -185.5 / -175.5 -178.50 / -178.50 General: Healthy Appearing, Awake, Alert, No Acute Distress Neck: Supple Lungs: Clear to auscultation Cardiovascular: Irregular Rhythm, No Murmurs - Ventricular rate was fast Abdomen: Bowel Sounds Present, Soft, Non Tender, No HSM, No Organomegaly Extremities: Mild LLE Edema Neurological: No Focal Motor or Sensory Deficit 05/21/20 12:40: WBC 8.3, RBC 3.45 L, Hgb 10.5 L, Hct 33.2 L, MCV 96.2, MCH 30.4, MCHC 31.6 L, Plt Count 318, MPV 11.8, Immature Gran % (Auto) 0.700, Neut % (Auto) 77.2 H, Lymph % (Auto) 11.3 L, [place] % (Auto) 9.7, Eos % (Auto) 0.7, Baso % (Auto) 0.4, Absolute Neuts (auto) 6.4, Nucleated RBC % 0 05/21/20 12:40: Sodium 141, Potassium 4.0, Chloride 106, Carbon Dioxide 31.0, Anion Gap 4 L, BUN 24 H, Creatinine 1.30 H, Est GFR (MDRD) Af Amer 50 L, Est GFR (MDRD) Non-Af 42 L, BUN/Creatinine Ratio 18.5, Glucose 100, Calcium 10.5 H, Total Bilirubin 1.20 H, Troponin I 0.021 05/21/20 12:40: B-Natriuretic Peptide 171.3 H 05/21/20 13:00: Urine Color Yellow, Urine Clarity Clear, Urine pH 6.5, Ur Specific [place] 1.010, Urine Protein 30 H, Urine Glucose (UA) Normal, Urine Ketones Negative, Urine Occult Blood 10 H, Urine Nitrite Negative, Urine Bilirubin Negative, Urine Urobilinogen 4 H, Ur Leukocyte Esterase 500 H, Urine RBC 0 SEEN, Urine WBC 10-25 SEEN 05/21/20 17:21: Troponin I 0.022 05/21/20 20:32: Magnesium 2.2, Troponin I < 0.015 05/22/20 05:35: WBC 7.8, RBC 3.30 L, Hgb 9.9 L, Hct 32.1 L, MCV 97.3, MCH 30.0, MCHC 30.8 L, Plt Count 314, MPV 12.0, Immature Gran % (Auto) 0.500, Neut % (Auto) 71.1 H, Lymph % (Auto) 15.9 L, [place] % (Auto) 10.0, Eos % (Auto) 2.1, Baso % (Auto) 0.4, Absolute Neuts (auto) 5.6, Nucleated RBC % 0 05/22/20 05:35: Sodium 139, Potassium 4.3, Chloride 107, Carbon Dioxide 28.0, Anion Gap 4 L, BUN 19 H, Creatinine 1.03 H, Est GFR (MDRD) Af Amer 66, Est GFR (MDRD) Non-Af 55 L, BUN/Creatinine Ratio 18.4, Glucose 93, Calcium 10.5 H, Magnesium 2.4 Rhythm: EKG: ECHO: Stress Test: Cardiac Cath: PCI: CT Surgery: Holter monitor: EPS: PPM: CXR: Chest CT Scan: Assessment/Plan Atrial fibrillation with fast ventricular rate, mildly symptomatic. At this point, she is still in atrial fibrillation there is no reason to continue flecainide. I would recommend using a combination of beta-kaila, digoxin and calcium kaila for rate control. Further dose of digoxin 0.25 mg IV will be given. There would be no need for further cardiac investigations at this point. She will be treated conservatively with oral anticoagulation especially patient with history of pulmonary embolism, CVA and chronic DVT
--- NOTE | 2020-05-22 09:14 | PCM.PN.HOSP ---
Subjective: Patient seen and examined. She has no complaints and had no active events overnight. She remains on Cardizem drip. Cardiology consulted. She has remained hemodynamically stable. Vitals/I&O's: Vital Signs Temp Pulse Resp BP Pulse Ox 98.3 F 64 22 H 135/72 H 98 05/22/20 06:00 05/22/20 08:00 05/22/20 08:00 05/22/20 08:00 05/22/20 08:18 Oxygen Flow Rate (L/min) 2 Oxygen Delivery Method Nasal Cannula Weight: 159 lb 6.307 oz Body Mass Index (BMI) 32.3 Finger Stick Blood Glucose 132 Intake and Output for Last 24 Hours 05/20/20 05/21/20 05/22/20 23:59 23:59 23:59 Intake Total 114.5 / 124.5 76.50 / 76.50 Output Total 300 / 300 250 / 250 Balance -185.5 / -175.5 -173.50 / -173.50 General: Alert, Oriented x3, Cooperative HEENT: Atraumatic, PERRLA, EOMI, Normocephalic Oral: Dry Mucosa Neck: Supple, No JVD, Negative Carotid Bruits Lungs: Clear to auscultation, Normal air movement, No rhonchi, No wheeze, No rales, - - on 2L of oxygen. Cardiovascular: Irregular Rate - afib, rate controlled. normal S1 and S2, no murmurs Abdomen: Bowel Sounds Present, Soft, Non Tender Extremities: No clubbing, No cyanosis, No edema, Capillary Refill Less than 3 Seconds Skin: No rashes, No breakdown Musculoskeletal: No Tenderness to Palpation of Joints or Extremities Lymphatic: No Cervical, Supraclavicular, or Inguinal Adenopathy Neurological: Cranial nerves II-XII grossly intact, Neuro grossly intact, Motor Exam 5/5 strength throughout Psych/Mental Status: Agitated, Alert and oriented to time, place, person, mood and affect Laboratory Results 05/21/20 12:40: WBC 8.3, RBC 3.45 L, Hgb 10.5 L, Hct 33.2 L, MCV 96.2, MCH 30.4, MCHC 31.6 L, RDW Std Deviation 57.7 H, RDW Coeff of [place] 16.6 H, Plt Count 318, MPV 11.8, Immature Gran % (Auto) 0.700, Neut % (Auto) 77.2 H, Lymph % (Auto) 11.3 L, [place] % (Auto) 9.7, Eos % (Auto) 0.7, Baso % (Auto) 0.4, Absolute Neuts (auto) 6.4, Absolute Lymphs (auto) 0.94, Nucleated RBC % 0 05/21/20 12:40: Sodium 141, Potassium 4.0, Chloride 106, Carbon Dioxide 31.0, Anion Gap 4 L, BUN 24 H, Creatinine 1.30 H, Estim Creat Clear Calc 41.02, Est GFR (MDRD) Af Amer 50 L, Est GFR (MDRD) Non-Af 42 L, BUN/Creatinine Ratio 18.5, Glucose 100, Calcium 10.5 H, Total Bilirubin 1.20 H, AST 39 H, ALT 37, Alkaline Phosphatase 121 H, Troponin I 0.021, Total Protein 6.3 L, Albumin 2.7 L, Globulin 3.6, Albumin/Globulin Ratio 0.8 L 05/21/20 12:40: B-Natriuretic Peptide 171.3 H 05/21/20 13:00: Urine Color Yellow, Urine Clarity Clear, Urine pH 6.5, Ur Specific [place] 1.010, Urine Protein 30 H, Urine Glucose (UA) Normal, Urine Ketones Negative, Urine Occult Blood 10 H, Urine Nitrite Negative, Urine Bilirubin Negative, Urine Urobilinogen 4 H, Ur Leukocyte Esterase 500 H, Urine RBC 0 SEEN, Urine WBC 10-25 SEEN, Ur Squamous Epith Cells 0 SEEN, Urine Bacteria 0 SEEN, Urine Mucus 0 SEEN 05/21/20 17:21: Troponin I 0.022 05/21/20 20:32: Magnesium 2.2, Troponin I < 0.015 05/22/20 05:35: WBC 7.8, RBC 3.30 L, Hgb 9.9 L, Hct 32.1 L, MCV 97.3, MCH 30.0, MCHC 30.8 L, RDW Std Deviation 58.2 H, RDW Coeff of [place] 16.6 H, Plt Count 314, MPV 12.0, Immature Gran % (Auto) 0.500, Neut % (Auto) 71.1 H, Lymph % (Auto) 15.9 L, [place] % (Auto) 10.0, Eos % (Auto) 2.1, Baso % (Auto) 0.4, Absolute Neuts (auto) 5.6, Absolute Lymphs (auto) 1.24, Nucleated RBC % 0 05/22/20 05:35: Sodium 139, Potassium 4.3, Chloride 107, Carbon Dioxide 28.0, Anion Gap 4 L, BUN 19 H, Creatinine 1.03 H, Estim Creat Clear Calc 48.06, Est GFR (MDRD) Af Amer 66, Est GFR (MDRD) Non-Af 55 L, BUN/Creatinine Ratio 18.4, Glucose 93, Calcium 10.5 H, Magnesium 2.4 Diagnostic Data Chest X-Ray 05/21/20 12:28 IMPRESSION: Some right lower lobe discoid atelectasis. Electronically Signed: William Benz MD at 13:28 EDT Tel , Service support , Current Medications Acetaminophen (Tylenol) 650 mg PO Q6H PRN PRN PRN Reason: Pain Score 1-10/Temp > 100.7 F Albuterol Sulfate (Ventolin Aerosols) 2.5 mg INHALATION Q6H PRN PRN PRN Reason: DYSPNEA [facility] Last Admin: 05/22/20 08:32 Dose: 300 mg Documented by: Apixaban (Eliquis) 2.5 mg PO BID [facility] Last Admin: 05/21/20 20:37 Dose: 2.5 mg Documented by: Atorvastatin Calcium (Lipitor) 10 mg PO QHS [facility] Last Admin: 05/21/20 20:37 Dose: 10 mg Documented by: Carvedilol (Coreg) 3.125 mg PO BID [facility] Last Admin: 05/21/20 20:37 Dose: 3.125 mg Documented by: Colchicine (Colchicine) 0.6 mg PO DAILY [facility] Diltiazem HCl (Cardizem Cd) 120 mg PO DAILY [facility] Furosemide (Lasix) 20 mg PO DAILY [facility] Diltiazem HCl 125 mg/ Dextrose 125 mls @ 5 mls/hr IV .Q25H [facility]; Protocol Last Titration: 05/22/20 08:00 Dose: 5 mg/hr, 5 mls/hr Documented by: Sodium Chloride () 250 mls @ 15 mls/hr IV .[id number] PRN PRN Reason: Saline Flush Sodium Chloride () 250 mls @ 15 mls/hr IV .[id number] PRN PRN Reason: Additional IVPB Infusion Ceftriaxone Sodium (Rocephin) 1 gm in 50 mls @ 100 mls/hr IV Q24 [facility] Levothyroxine Sodium (Synthroid) 100 mcg PO [id number] [facility] Loperamide HCl (Imodium) 2 mg PO Q6H PRN PRN PRN Reason: Diarrhea Nitroglycerin (Nitrostat) 0.4 mg SUBLINGUAL Q5M PRN PRN Reason: CARDIAC/CHEST PAIN Nystatin (Mycostatin Powder) 1 applic TOPICAL TID [facility]; Protocol Last Admin: 05/22/20 05:19 Dose: 1 applicatio Documented by: Pantoprazole Sodium (Protonix) 40 mg PO DAILY [facility] Paroxetine HCl (Paxil) 10 mg PO QHS [facility] Last Admin: 05/21/20 20:37 Dose: 10 mg Documented by: Potassium Chloride (K-Dur) 10 meq PO BID [facility] Last Admin: 05/21/20 20:37 Dose: 10 meq Documented by: Sodium Chloride () 10 - 40 ml IV UD PRN PRN Reason: SALINE FLUSH Last Admin: 05/21/20 21:10 Dose: 20 ml Documented by: STROKE Vital Signs/Narrative: Vital Signs Temp Pulse Resp BP Pulse Ox 05/22/20 08:18 98 05/22/20 08:00 64 22 H 135/72 H 05/22/20 07:00 57 L 17 127/58 H 98 05/22/20 06:30 62 20 H 121/62 H 98 05/22/20 06:00 98.3 F 62 19 H 127/61 H 97 05/22/20 05:49 64 22 H 131/70 H 98 05/22/20 05:39 63 22 H 136/68 H 96 05/22/20 05:30 68 23 H 145/120 H 97 05/22/20 05:18 58 L 20 H 135/67 H 95 Medical Necessity - Tobacco Use Smoking Status: Never smoker Assessment/Plan All Active Problems (Last Reviewed 03/19/20 @ 14:[address] Naina Llamas DO) Upper GI bleeding (Acute) Acute blood loss anemia (Acute) Atrial fibrillation with rapid ventricular response (Acute) Dyspnea (Acute) Back pain (Acute) Debility (Acute) Shortness of breath (Acute) Left ankle sprain (Acute) Multiple falls (Acute) JESSICA (acute kidney injury) (Acute) Generalized weakness (Acute) Bradycardia (Acute) Confusion (Resolved) Esophageal stricture (Resolved) Expressive aphasia (Resolved) Hypoxia (Resolved) 80-year-old admitted with a complaint of altered mental status and tachycardia as well as dizziness. # Afib with RVR on cardizem drip; HR now better controlled also on flecainide; received one dose of IV digoxin 0.5mg cardiology on board-Per cardiology recommendations to give 1 further dose of 0.25 mg of IV digoxin. to continue PO cardizem and PO carvedilol Per cardiology, to DC flecainide IV lopressor prn. # UTI; UA showed no bacteria, but UA showed 10-25 wbcs. on IV ceftriaxone. urine cultured Gram positive cocci, possibly enterococcus. 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 continue lasix # hyperlipidemia: on statin # Hypothyroidism: on synthroid # Gout: on allopurinol #CKD 3: Cr is 1.3. Will moitor # hypercalcemia: calcium is still 10.5. hydrate gently with IVF. 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
[2020-05-22] MEDS: Ceftriaxone 1 GM/50 ML BAG IV (10:31)
[2020-05-22] MEDS: APIXABAN 2.5 MG TABLET PO ×2 (10:34→21:36)
[2020-05-22] MEDS: Furosemide 20 MG Tablet PO (10:34)
[2020-05-22] MEDS: Pantoprazole Sodium 40 MG Tablet PO (10:34)
[2020-05-22] MEDS: Carvedilol 3.125 MG TABLET PO ×2 (10:34→21:36)
[2020-05-22] MEDS: dilTIAZem CD 120 MG Capsule PO (11:13)
--- NOTE | 2020-05-22 11:21 | PN.CARD_ITS ---
Subjectve: Heart rate is better. Patient's shortness of breath has improved. Blood pressure is holding Objective: Vital Signs Temp Pulse Resp BP Pulse Ox 98.3 F 86 21 H 116/98 H 98 05/22/20 06:00 05/22/20 10:33 05/22/20 10:00 05/22/20 10:33 05/22/20 10:00 Oxygen Flow Rate (L/min) 2 Oxygen Delivery Method Nasal Cannula Weight: 159 lb 6.307 oz Body Mass Index (BMI) 32.3 Finger Stick Blood Glucose 132 Intake and Output for Last 24 Hours 05/20/20 05/21/20 05/22/20 23:59 23:59 23:59 Intake Total 114.5 / 124.5 92.58 / 92.58 Output Total 300 / 300 250 / 250 Balance -185.5 / -175.5 -157.42 / -157.42 General: No Acute Distress, - - Poor historian Neck: Supple Lungs: Clear to auscultation Cardiovascular: Irregular Rhythm, No Murmurs Abdomen: Bowel Sounds Present, Soft, Non Tender, No HSM, No Organomegaly Psych/Mental Status: Appropriate, Normal Affect, - - Poor memory for recent oswaldo nts 05/21/20 12:40: WBC 8.3, RBC 3.45 L, Hgb 10.5 L, Hct 33.2 L, MCV 96.2, MCH 30.4, MCHC 31.6 L, Plt Count 318, MPV 11.8, Immature Gran % (Auto) 0.700, Neut % (Auto) 77.2 H, Lymph % (Auto) 11.3 L, [place] % (Auto) 9.7, Eos % (Auto) 0.7, Baso % (Auto) 0.4, Absolute Neuts (auto) 6.4, Nucleated RBC % 0 05/21/20 12:40: Sodium 141, Potassium 4.0, Chloride 106, Carbon Dioxide 31.0, Anion Gap 4 L, BUN 24 H, Creatinine 1.30 H, Est GFR (MDRD) Af Amer 50 L, Est GFR (MDRD) Non-Af 42 L, BUN/Creatinine Ratio 18.5, Glucose 100, Calcium 10.5 H, Total Bilirubin 1.20 H, Troponin I 0.021 05/21/20 12:40: B-Natriuretic Peptide 171.3 H 05/21/20 13:00: Urine Color Yellow, Urine Clarity Clear, Urine pH 6.5, Ur Specific [place] 1.010, Urine Protein 30 H, Urine Glucose (UA) Normal, Urine K etones Negative, Urine Occult Blood 10 H, Urine Nitrite Negative, Urine Bilirubin Negative, Urine Urobilinogen 4 H, Ur Leukocyte Esterase 500 H, Urine RBC 0 SEEN, Urine WBC 10-25 SEEN 05/21/20 17:21: Troponin I 0.022 05/21/20 20:32: Magnesium 2.2, Troponin I < 0.015 05/22/20 05:35: WBC 7.8, RBC 3.30 L, Hgb 9.9 L, Hct 32.1 L, MCV 97.3, MCH 30.0, MCHC 30.8 L, Plt Count 314, MPV 12.0, Immature Gran % (Auto) 0.500, Neut % (Auto) 71.1 H, Lymph % (Auto) 15.9 L, [place] % (Auto) 10.0, Eos % (Auto) 2.1, Baso % (Auto) 0.4, Absolute Neuts (auto) 5.6, Nucleated RBC % 0 05/22/20 05:35: Sodium 139, Potassium 4.3, Chloride 107, Carbon Dioxide 28.0, Anion Gap 4 L, BUN 19 H, Creatinine 1.03 H, Est GFR (MDRD) Af Amer 66, Est GFR (MDRD) Non-Af 55 L, BUN/Creatinine Ratio 18.4, Glucose 93, Calcium 10.5 H, Magnesium 2.4 Rhythm: EKG: ECHO: Stress Test: Cardiac Cath: PCI: CT Surgery: Holter monitor: EPS: PPM: CXR: Chest CT Scan: Medical Necessity - Tobacco Use Smoking Status: Never smoker Assessment/Plan Atrial fibrillation with better rate. IV Cardizem will be discontinued. P.o. Cardizem and beta-kaila will be continued. She will be treated conservatively with oral anticoagulation especially patient with history of pulmonary embolism, CVA and chronic DVT
[2020-05-22] MEDS: Atorvastatin Calcium 10 MG Tablet PO (21:36)
[2020-05-22] MEDS: Acetaminophen 325 MG Tablet 650 MG PO (21:36)
[2020-05-22] MEDS: PARoxetine 10 MG Tablet PO (21:36)
[2020-05-23 03:00] VITALS: PULSE 72
[2020-05-23 03:40] VITALS: BP 131/63; PULSE 66; RESP 16; TEMP 36.6; O2SAT 97
[2020-05-23] MEDS: Levothyroxine 100 MCG Tablet PO (05:04)
[2020-05-23] MEDS: Nystatin Powder 15gm Bottle 1 APPLIC TOPICAL ×2 (05:06→15:54)
[2020-05-23 06:27] LABS: Absolute Lymphocyte Count 1.19 X10^3/uL (0.83-4.51); Absolute Neutrophil Count 5.2 X10^3/uL (2.0-7.7); Basophil# 0.02 X10^3/uL; Basophil% 0.3 % (0-1); Eosinophil# 0.19 X10^3/uL; Eosinophils% 2.6 % (0-5); Hematocrit 33.9 % (37-47); Hemoglobin 10.6 g/dL (12.0-15.0); Lymphocyte # 1.19 X10^3/ul (4.0); Lymphocyte % 16.3 % (19-41); Mean Corp Hgb Conc 31.3 g/dL (32-36); Mean Corpuscular Hgb 30.7 pg (27.0-32.0); Mean Corpuscular Volume 98.3 fL (81-99); Mean Platelet Vol. 11.3 fl (6.2-12.0); Monocyte# 0.66 X10^3/uL; Monocyte% 9.1 % (0-10); NRBC Flagged by Analyzer 0 % (0-5); Neutrophil # 5.18 X10^3/uL (2.7-7.7); Neutrophil % 71.2 % (47-70); Platelet Count 347 K/mm3 (150-450); RBC Distribution Width CV 16.6 % (11.6-14.6); RBC Distribution Width SD 58.5 fl (35.1-43.9); Red Blood Count 3.45 M/mm3 (4.2-5.4); White Blood Count 7.3 K/mm3 (4.4-11.0)
[2020-05-23 06:51] LABS: Anion Gap 4 (5-15); BUN 19 mg/dL (7-18); BUN/Creat Ratio 17.1 RATIO (10-20); Calcium,Total 10.3 mg/dL (8.5-10.1); Chloride 104 mmol/L (98-107); Creatinine, Serum 1.11 mg/dL (0.55-1.02); EST Glomerular Filtration Rate 50 mL/min (>60); Est Glom Filt Rate - Afr Amer 61 mL/min (>60); Glucose 100 mg/dL (74-106); Potassium 3.8 mmol/L (3.5-5.1); Sodium Level 141 mmol/L (136-145)
[2020-05-23 07:25] VITALS: O2SAT 95
[2020-05-23 07:26] VITALS: PULSE 78
[2020-05-23] MEDS: Allopurinol 300 MG Tablet PO (08:00)
[2020-05-23] MEDS: Acetaminophen 325 MG Tablet 650 MG PO (08:00)
[2020-05-23] MEDS: dilTIAZem CD 120 MG Capsule PO (09:10)
[2020-05-23] MEDS: Pantoprazole Sodium 40 MG Tablet PO (09:10)
[2020-05-23] MEDS: APIXABAN 2.5 MG TABLET PO (09:11)
[2020-05-23] MEDS: Furosemide 20 MG Tablet PO (09:11)
[2020-05-23] MEDS: Carvedilol 3.125 MG TABLET PO (09:16)
[2020-05-23] MEDS: 0.9% Saline Lock 10 ML Syringe IV (09:17)
[2020-05-23] MEDS: Ceftriaxone 1 GM/50 ML BAG IV (09:17)
--- NOTE | 2020-05-23 09:38 | PCM.PN.CARD ---
Subjectve: The patient has continued her evaluation care which includes her underlying atrial dysrhythmia. She does not complain of chest discomfort or palpitations at this time. There is been no acute respiratory related issues. Objective: Vital Signs Temp Pulse Resp BP Pulse Ox 97.8 F 78 16 131/63 H 95 05/23/20 03:40 05/23/20 07:26 05/23/20 03:40 05/23/20 03:40 05/23/20 07:25 Oxygen Flow Rate (L/min) 2 Oxygen Delivery Method Nasal Cannula Weight: 159 lb 6.307 oz Body Mass Index (BMI) 32.3 Finger Stick Blood Glucose 132 Intake and Output for Last 24 Hours 05/21/20 05/22/20 05/23/20 23:59 23:59 23:59 Intake Total 114.5 / 124.5 1042.58 / 1222.58 180 / 180 Output Total 300 / 300 1300 / 1600 400 / 400 Balance -185.5 / -175.5 -257.42 / -377.42 -220 / -220 General: Awake, Alert, Oriented x 3, Cooperative, No Acute Distress HEENT: Atraumatic, Normocephalic, PERRL, EOMI, Sclera Non Icteric Neck: No JVD Lungs: Clear to auscultation Cardiovascular: Irregular Rhythm, Normal S1, Normal S2 Abdomen: Bowel Sounds Present, Soft Extremities: No edema Psych/Mental Status: Appropriate 05/23/20 05:50: WBC 7.3, RBC 3.45 L, Hgb 10.6 L, Hct 33.9 L, MCV 98.3, MCH 30.7, MCHC 31.3 L, Plt Count 347, MPV 11.3, Immature Gran % (Auto) 0.500, Neut % (Auto) 71.2 H, Lymph % (Auto) 16.3 L, [place] % (Auto) 9.1, Eos % (Auto) 2.6, Baso % (Auto) 0.3, Absolute Neuts (auto) 5.2, Nucleated RBC % 0 05/23/20 05:50: Sodium 141, Potassium 3.8, Chloride 104, Carbon Dioxide 33.0 H, Anion Gap 4 L, BUN 19 H, Creatinine 1.11 H, Est GFR (MDRD) Af Amer 61, Est GFR (MDRD) Non-Af 50 L, BUN/Creatinine Ratio 17.1, Glucose 100, Calcium 10.3 H Rhythm: Atrial fibrillation Medical Necessity - Tobacco Use Smoking Status: Never smoker Assessment/Plan 1. Atrial fibrillation At the present time she continues with her atrial fibrillation. She is on rate control therapy and anticoagulant therapy. Based upon her previous evaluation there are no immediate plans for reattempting antiarrhythmic therapy or for reattempting regaining sinus rhythm noninvasively or invasively. 2. Chronic diastolic mediated CHF The patient has a history of chronic diastolic mediated CHF. She will continue medical therapy with adjustment as needed. 3. Hypertension The patient will continue antihypertensive therapy adjustment as needed. 4. CVA The patient has been evaluated for previous CVA. She will continue evaluation care per internal medicine. Overall, at the present time from a cardiac standpoint, there are no immediate plans for additional cardiac diagnostic studies/intervention. The patient will need continued future outpatient cardiovascular follow-up. This note was generated using a voice recognition system and there may be incorrect words, spelling or punctuation that were not noted when reviewing the office note prior to saving.
[2020-05-23 09:40] VITALS: BP 112/55; PULSE 81; RESP 24; TEMP 36.6; O2SAT 98
[2020-05-23 09:48] LABS: Thyroid Stim Hormone (TSH) 0.16 uIU/mL (0.358-3.74)
--- NOTE | 2020-05-23 09:55 | EKG12_ITS ---
Test Reason : Blood Pressure : / mmHG Vent. Rate : 073 BPM Atrial Rate : 277 BPM P-R Int : 000 ms QRS Dur : 158 ms QT Int : 428 ms P-R-T Axes : 000 005 -31 degrees QTc Int : 471 ms Atrial flutter with variable A-V block Right bundle branch block Abnormal ECG No previous ECGs available Confirmed by SARAH CURTIS, EVA ([id number]), editorial manager IZABELA CALLAWAY ([id number]) on 05/25/2020 11:38:48 AM Referred By: CHARLES Confirmed By:EVA SMITH MD
--- NOTE | 2020-05-23 10:51 | CASEMGMT ---
Addendum entered by Nedra Contreras 05/23/20 11:30: YIN also faxed information to [employer] to obtain insurance authorization for SNF. Nedra REEVES Original Note: SW received a phone call from patient's son. He is frustrated with patient as she keeps coming back and forth to the hospital and then she changes her mind about which SNF she will go to. YIN told him SW will follow up with her and let him know what happens. YIN met with patient, introduced self. YIN asked her which SNF she is going to. She said she does not know. YIN gave her the same list given to her last time with the in network facilities highlighted. YIN told her to look over the list and SW will check back. Clifford came in to do an EKG. YIN called [facility] to see when they will be opening their unit. She said it won't be next week. She said she is going to talk with her county administrator and will get back with YIN. Nereyda called SW back and said they would have a bed for patient . YIN told her SW will let her know where patient goes in the meantime. YIN went back to patient's room and let her know this information. YIN told her she should just go back to [facility] since that is where her stuff is and then she can go to [facility]. She said absolutely not. She told SW to try [facility]. YIN called [facility] and left her a voice mail with referral and also faxed information. Nedra REEVES
[2020-05-23 11:02] VITALS: PULSE 85
--- NOTE | 2020-05-23 11:17 | CASEMGMT ---
Patient has a Healthcare Power of Wireless Consultant and a Health Care Living Will on file at [facility]. Her son Prakash is her Healthcare Power of Wireless Consultant. Nedra REEVES
--- NOTE | 2020-05-23 11:47 | PCM.EXTCARCO ---
- Diet 05/21/20 16:37 Diet: Cardiac - Heart Healthy Food consistency:: Regular Liquid Consistency:: Regular/Thin - Routine Orders/Code Status Enema Type: Fleetz Enema Frequency: Daily PRN Suppository Type: Dulcolax 10mg Suppository Frequency: Daily PRN O2 Liters per Minute: 2 O2 Frequency: Continuous Keep PO Greater than or Equal to (%): 90 Routine Lab Work: CBC, BMP, - - Q Week - Wound(s) Left lower forearm Wound Type: Skin Tear - Suggestions for Active Care Change Position every (hours): 2 Times a day to sit in chair: 3 - Therapies Physical Therapy: Eval and Treat Occupational Therapy: Eval and Treat - Problem/Diagnosis (1) Atrial fibrillation with rapid ventricular response Status: Acute Current Visit: Yes (2) Chronic respiratory failure with hypoxia Status: Chronic Current Visit: No (3) Chronic diastolic (congestive) heart failure Status: Chronic Current Visit: No (4) COPD (chronic obstructive pulmonary disease) Status: Chronic Current Visit: No (5) Chronic kidney disease Status: Chronic Current Visit: No (6) Hypothyroidism Status: Chronic Current Visit: No (7) Hypertension Status: Chronic Current Visit: No (8) History of CVA (cerebrovascular accident) Status: Chronic Current Visit: No (9) UTI (urinary tract infection) Status: Acute Current Visit: Yes - Allergies/Procedures Done in Hospital Allergies/Adverse Reactions: Allergies adhesive Allergy (Verified 05/14/20 08:49) Rash irbesartan Allergy (Verified 05/14/20 08:49) Unknown solifenacin [From Vesicare] Allergy (Verified 05/14/20 08:49) Unknown sulindac [Sulindac] Allergy (Verified 05/14/20 08:49) Unknown lisinopril Adverse Reaction (Verified 05/14/20 08:49) Other COUGH losartan potassium [From Cozaar] Adverse Reaction (Verified 05/14/20 08:49) Other metoprolol Adverse Reaction (Verified 05/14/20 08:49) GI Upset ramipril [From Altace] Adverse Reaction (Verified 05/14/20 08:49) Other tramadol Adverse Reaction (Verified 05/14/20 08:49) Unknown Procedures: None - Type of Care/Length of Stay Estimated LOS: More Than 30 Days Type of Care Needed: Skilled Rehab Potential: Fair Prognosis: Fair - Additional Orders/Day of Discharge H&P will serve as current which was dated: 05/21/20 Day of Discharge: 05/23/20 - Follow Up Care Primary Care Physician: Denny Romano Chi, MD [COURTESY STAFF PHYSICIAN] - Please follow up with your Primary Care Physician in: 1 Week Please Follow Up With: Arley Garcia NP-C When: As scheduled 06/23/2020
--- NOTE | 2020-05-23 13:12 | CASEMGMT ---
SW received a return call from [facility] and [facility] can take her. SW waiting on [employer] to give an answer and patient's COVID test. SW called patient's son and let him know the plan. He is frustrated with patient as she keeps going to different nursing homes as she isn't happy. He hadn't even completed all of the admissions paperwork at [facility] yet. He did not need a return call notifying him when patient is getting picked up. Nedra ROBLES MSW
--- NOTE | 2020-05-23 13:16 | CASEMGMT ---
YIN did call Apoorva at [facility] and let her know patient will not be returning. YIN also notified patient of the plan. Nedra ROBLES MSW
--- NOTE | 2020-05-23 13:53 | PCM.DC.SUM ---
<Gail Bai INSIDE SALES ACCOUNT EXECUTIVE - Last Filed: 05/23/20 14:13> Discharge Date and Diagnosis Date of Admission: 05/21/20 Date of Discharge: 05/23/20 - Primary Discharge Diagnosis Acute Problems: Active Problems (Last Reviewed 03/19/20 @ 14:[address] Naina Llamas, DO) 1. Atrial fibrillation with RVR 2. Chronic heart failure with preserved ejection fraction 3. Acute Enterococcus faecalis UTI 4. Hypertension 5. Hyperlipidemia 6. Hypothyroidism 7. Chronic kidney disease stage III 8. Hypercalcemia 9. History of recurrent PE 10. Gout - Secondary Discharge Diagnosis Chronic Problems: Chronic Problems (Last Reviewed 03/19/20 @ 14:[address] Naina Llamas, DO) Pressure ulcer of right buttock, stage 2 (Chronic) Bilateral pulmonary embolism (Chronic) Chronic respiratory failure with hypoxia (Chronic) Gastric ulcer (Chronic) Stroke (Chronic) DVT (deep venous thrombosis) (Chronic) Atrial fibrillation (Chronic) Thoracic aortic aneurysm (Chronic) Chronic diastolic (congestive) heart failure (Chronic) COPD (chronic obstructive pulmonary disease) (Chronic) Gout (Chronic) Allergic rhinitis (Chronic) Hypokalemia (Chronic) Hyperlipidemia (Chronic) Obstructive sleep apnea (Chronic) Carotid stenosis (Chronic) Chronic kidney disease (Chronic) Dementia (Chronic) Meningioma (Chronic) Chronic diastolic heart failure (Chronic) Paroxysmal atrial fibrillation (Chronic) Diastolic CHF, acute (Chronic) Dyspnea on exertion (Chronic) Hyperparathyroidism (Chronic) Hypothyroidism (Chronic) Lymphomatoid papulosis (Chronic) Hypertension (Chronic) Obesity (Chronic) Right bundle branch block (Chronic) AV block, 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 Electronically Signed: William Benz MD at 13:28 EDT Tel , Service support , Dr. Aponte- Cardiology Operations: None Procedures: None Summary of Care Provided: The patient is a 80 year old F admitted 05/21/2020 due to tachycardia. 1. Atrial fibrillation with RVR-cardiology consulted during admission. Home flecainide regimen discontinued. Continue oral carvedilol and oral Cardizem. Rate controlled. Follow-up with cardiology as scheduled 06/23/2020. Recent echocardiogram March 2020 demonstrated an EF of 60%, stage III diastolic dysfunction. 2. Chronic heart failure with preserved ejection fraction-recent echo as noted above. No acute exacerbation. 3. Acute Enterococcus faecalis UTI-IV Rocephin during admission. Discharged on Omnicef to complete course. 4. Hypertension-stable, continue carvedilol, Cardizem. 5. Hyperlipidemia-continue statin. 6. Hypothyroidism-continue Synthroid regimen. TSH low, 0.16. Recommend repeat as outpatient with adjustment in Synthroid regimen if remains low. 7. Chronic kidney disease stage III-at baseline, trend BMP. 8. Hypercalcemia-stable. 9. History of recurrent PE-on Eliquis. 10. Gout-continue allopurinol. Patient seen and examined prior to discharge. Physical assessment as noted below. Patient is stable for discharge with follow up recommendations as noted above. This patient was seen by KALPANA Molina under the supervision of Dr. Britton. - Physical Exam Vitals/I&O's: Vital Signs Temp Pulse Resp BP Pulse Ox 97.8 F 85 24 H 112/55 L 98 05/23/20 09:40 05/23/20 11:02 05/23/20 09:40 05/23/20 09:40 05/23/20 09:40 Oxygen Flow Rate (L/min) 2 Oxygen Delivery Method Nasal Cannula Weight: 159 lb 6.307 oz Body Mass Index (BMI) 32.3 Finger Stick Blood Glucose 132 Intake and Output for Last 24 Hours 05/21/20 05/22/20 05/23/20 23:59 23:59 23:59 Intake Total 114.5 / 124.5 1042.58 / 1222.58 780 / 780 Output Total 300 / 300 1300 / 1600 400 / 400 Balance -185.5 / -175.5 -257.42 / -377.42 380 / 380 General: Alert, Oriented x3, Cooperative HEENT: Atraumatic, PERRLA, EOMI, Normocephalic Neck: Supple, No JVD, Negative Carotid Bruits Lungs: Clear to auscultation, Normal air movement Cardiovascular: - - Atrial fibrillation, rate controlled Abdomen: Bowel Sounds Present, Soft, Non Tender, Non-Distended Extremities: No clubbing, No cyanosis Skin: No rashes, No breakdown, - - Left hip/thigh ecchymosis Musculoskeletal: No Tenderness to Palpation of Joints or Extremities Neurological: Cranial nerves II-XII grossly intact, Neuro grossly intact Psych/Mental Status: Normal Affect, Appropriate Microbiology Past 72 Hours 05/21/20 13:00 Urine, Catheterized Urine Culture - Final Enterococcus faecalis Laboratory Results 05/23/20 05:50: WBC 7.3, RBC 3.45 L, Hgb 10.6 L, Hct 33.9 L, MCV 98.3, MCH 30.7, MCHC 31.3 L, RDW Std Deviation 58.5 H, RDW Coeff of Cricket 16.6 H, Plt Count 347, MPV 11.3, Immature Gran % (Auto) 0.500, Neut % (Auto) 71.2 H, Lymph % (Auto) 16.3 L, Cochran % (Auto) 9.1, Eos % (Auto) 2.6, Baso % (Auto) 0.3, Absolute Neuts (auto) 5.2, Absolute Lymphs (auto) 1.19, Nucleated RBC % 0 05/23/20 05:50: Sodium 141, Potassium 3.8, Chloride 104, Carbon Dioxide 33.0 H, Anion Gap 4 L, BUN 19 H, Creatinine 1.11 H, Estim Creat Clear Calc 44.60, Est GFR (MDRD) Af Amer 61, Est GFR (MDRD) Non-Af 50 L, BUN/Creatinine Ratio 17.1, Glucose 100, Calcium 10.3 H 05/23/20 05:50: TSH 0.16 L 05/23/20 10:50: COVID-19 (LUIS) Not Detected Current Medications Acetaminophen (Tylenol) 650 mg PO Q6H PRN PRN PRN Reason: Pain Score 1-10/Temp > 100.7 F Last Admin: 05/23/20 08:00 Dose: 650 mg Documented by: Albuterol Sulfate (Ventolin Aerosols) 2.5 mg INHALATION Q6H PRN PRN PRN Reason: DYSPNEA Allopurinol (Zyloprim) 300 mg PO DAILYCM [facility] Last Admin: 05/23/20 08:00 Dose: 300 mg Documented by: Apixaban (Eliquis) 2.5 mg PO BID [facility] Last Admin: 05/23/20 09:11 Dose: 2.5 mg Documented by: Atorvastatin Calcium (Lipitor) 10 mg PO QHS [facility] Last Admin: 05/22/20 21:36 Dose: 10 mg Documented by: Carvedilol (Coreg) 3.125 mg PO BID [facility] Last Admin: 05/23/20 09:16 Dose: 3.125 mg Documented by: Colchicine (Colchicine) 0.6 mg PO DAILY [facility] Last Admin: 05/23/20 09:11 Dose: 0.6 mg Documented by: Diltiazem HCl (Cardizem Cd) 120 mg PO DAILY [facility] Last Admin: 05/23/20 09:10 Dose: 120 mg Documented by: Furosemide (Lasix) 20 mg PO DAILY [facility] Last Admin: 05/23/20 09:11 Dose: 20 mg Documented by: Sodium Chloride () 250 mls @ 15 mls/hr IV .[id number] PRN PRN Reason: Saline Flush Sodium Chloride () 250 mls @ 15 mls/hr IV .[id number] PRN PRN Reason: Additional IVPB Infusion Ceftriaxone Sodium (Rocephin) 1 gm in 50 mls @ 100 mls/hr IV Q24 [facility] Last Infusion: 05/23/20 10:03 Dose: Infused Documented by: Levothyroxine Sodium (Synthroid) 100 mcg PO MoTuWeThFrSa@0600 [facility] Last Admin: 05/23/20 05:04 Dose: 100 mcg Documented by: Loperamide HCl (Imodium) 2 mg PO Q6H PRN PRN PRN Reason: Diarrhea Nitroglycerin (Nitrostat) 0.4 mg SUBLINGUAL Q5M PRN PRN Reason: CARDIAC/CHEST PAIN Nystatin (Mycostatin Powder) 1 applic TOPICAL TID [facility]; Protocol Last Admin: 05/23/20 05:06 Dose: 1 applicatio Documented by: Pantoprazole Sodium (Protonix) 40 mg PO DAILY [facility] Last Admin: 05/23/20 09:10 Dose: 40 mg Documented by: Paroxetine HCl (Paxil) 10 mg PO QHS [facility] Last Admin: 05/22/20 21:36 Dose: 10 mg Documented by: Potassium Chloride (K-Dur) 10 meq PO BID [facility] Last Admin: 05/23/20 09:11 Dose: 10 meq Documented by: Sodium Chloride () 10 - 40 ml IV UD PRN PRN Reason: SALINE FLUSH Last Admin: 05/23/20 09:17 Dose: 10 ml Documented by: Home Medications: Medications to take at Discharge Atorvastatin Calcium [Lipitor] 10 mg PO QHS 04/17/17 levothyroxine 100 mcg tablet 100 mcg PO DAILY 09/27/17 allopurinol 300 mg tablet 300 mg PO DAILY 03/03/20 Colchicine 0.6 mg PO DAILY 03/04/20 Apixaban [Eliquis] 2.5 mg PO BID 04/03/20 Pantoprazole Sodium 40 mg PO DAILY 04/03/20 Paroxetine [Paxil] 10 mg PO QHS 04/03/20 Albuterol Aerosols [Ventolin Aerosols] 2.5 mg INHALATION Q6H PRN PRN #1 vial 04/04/20 furosemide 20 mg tablet 20 mg PO DAILY 04/20/20 Loperamide [Imodium] 2 mg PO Q6H PRN PRN 05/14/20 Potassium Chloride 10 meq PO BID 05/14/20 Diltiazem CD [Cardizem CD] 120 mg PO DAILY #30 cap 05/18/20 Acetaminophen 2 tab PO Q4H PRN PRN 05/21/20 Carvedilol [Coreg (Beta Ivan)] 3.125 mg PO BID #0 tab 05/23/20 Cefdinir [Omnicef [equiv]] 300 mg PO Q12H #8 cap 05/23/20 Following Prescriptions Were Given to Patient: Cefdinir [Omnicef [equiv]] 300 mg PO Q12H #8 cap Primary Care Physician: Denny Romano Chi, MD [COURTESY STAFF PHYSICIAN] - Please follow up with your Primary Care Physician in: 1 Week Please Follow Up With: Arley Gacria NP-C When: As scheduled 06/23/2020 Patient Instructions: Understanding Urinary Tract Infections (UTIs), ED AFIB Disposition: Correction facility Minutes spent on discharge:: 35 Patient Condition:: Stable Medical Necessity - Tobacco Use Smoking Status: Never smoker Meaningful Use Info Meaningful Use Diagnoses (Choose all that apply): None applicable <[employer] - Last Filed: 05/23/20 15:34> Discharge Date and Diagnosis - Secondary Discharge Diagnosis Chronic Problems: Chronic Problems (Last Reviewed 03/19/20 @ 14:[address] Naina Llamas, DO) Pressure ulcer of right buttock, stage 2 (Chronic) Bilateral pulmonary embolism (Chronic) Chronic respiratory failure with hypoxia (Chronic) Gastric ulcer (Chronic) Stroke (Chronic) DVT (deep venous thrombosis) (Chronic) Atrial fibrillation (Chronic) Thoracic aortic aneurysm (Chronic) Chronic diastolic (congestive) heart failure (Chronic) COPD (chronic obstructive pulmonary disease) (Chronic) Gout (Chronic) Allergic rhinitis (Chronic) Hypokalemia (Chronic) Hyperlipidemia (Chronic) Obstructive sleep apnea (Chronic) Carotid stenosis (Chronic) Chronic kidney disease (Chronic) Dementia (Chronic) Meningioma (Chronic) Chronic diastolic heart failure (Chronic) Paroxysmal atrial fibrillation (Chronic) Diastolic CHF, acute (Chronic) Dyspnea on exertion (Chronic) Hyperparathyroidism (Chronic) Hypothyroidism (Chronic) Lymphomatoid papulosis (Chronic) Hypertension (Chronic) Obesity (Chronic) Right bundle branch block (Chronic) AV block, 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 I have independently interviewed and examined the patient and reviewed pertinent historical, laboratory, and other data. Please refer to her note for patient's presentation, findings, and recommendations. Patient was seen and examined. Her heart rate is better controlled. She denied any chest pain or dizziness or palpitation. No acute events overnight. Vitals were reviewed -stable Physical Exam: Gen: Comfortable, not pale, not jaundiced, alert oriented x3, on 2 L of oxygen CVS:HS I +II, regular, no murmurs RESP: Diminished at lung bases GI: BS present and normal, nontender, no palpable organs EXT:No edema Labs reviewed: TSH is 0.16 ASSESSMENT: 1. A. fib with RVR 2. Chronic diastolic CHF, EF 60% 3. Acute Enterococcus faecalis UTI 4. Hypertension 5. Hyperlipidemia' 6. CKD stage 3 Meds reviewed Plan: Decrease levothyroxine to 75 mcg/day Continue rest of medication Discharge planning in progress. - Physical Exam Vitals/I&O's: Vital Signs Temp Pulse Resp BP Pulse Ox 97.8 F 85 24 H 112/55 L 98 05/23/20 09:40 05/23/20 11:02 05/23/20 09:40 05/23/20 09:40 05/23/20 09:40 Oxygen Flow Rate (L/min) 2 Oxygen Delivery Method Nasal Cannula Weight: 72.3 kg Body Mass Index (BMI) 32.3 Finger Stick Blood Glucose 132 Intake and Output for Last 24 Hours 05/21/20 05/22/20 05/23/20 23:59 23:59 23:59 Intake Total 114.5 / 124.5 1042.58 / 1222.58 780 / 780 Output Total 300 / 300 1300 / 1600 400 / 400 Balance -185.5 / -175.5 -257.42 / -377.42 380 / 380 Microbiology Past 72 Hours 05/21/20 13:00 Urine, Catheterized Urine Culture - Final Enterococcus faecalis Laboratory Results 05/23/20 05:50: WBC 7.3, RBC 3.45 L, Hgb 10.6 L, Hct 33.9 L, MCV 98.3, MCH 30.7, MCHC 31.3 L, RDW Std Deviation 58.5 H, RDW Coeff of Cricket 16.6 H, Plt Count 347, MPV 11.3, Immature Gran % (Auto) 0.500, Neut % (Auto) 71.2 H, Lymph % (Auto) 16.3 L, Cochran % (Auto) 9.1, Eos % (Auto) 2.6, Baso % (Auto) 0.3, Absolute Neuts (auto) 5.2, Absolute Lymphs (auto) 1.19, Nucleated RBC % 0 05/23/20 05:50: Sodium 141, Potassium 3.8, Chloride 104, Carbon Dioxide 33.0 H, Anion Gap 4 L, BUN 19 H, Creatinine 1.11 H, Estim Creat Clear Calc 44.60, Est GFR (MDRD) Af Amer 61, Est GFR (MDRD) Non-Af 50 L, BUN/Creatinine Ratio 17.1, Glucose 100, Calcium 10.3 H 05/23/20 05:50: TSH 0.16 L 05/23/20 10:50: COVID-19 (LUIS) Not Detected Current Medications Acetaminophen (Tylenol) 650 mg PO Q6H PRN PRN PRN Reason: Pain Score 1-10/Temp > 100.7 F Last Admin: 05/23/20 08:00 Dose: 650 mg Documented by: Albuterol Sulfate (Ventolin Aerosols) 2.5 mg INHALATION Q6H PRN PRN PRN Reason: DYSPNEA Allopurinol (Zyloprim) 300 mg PO DAILYCM [facility] Last Admin: 05/23/20 08:00 Dose: 300 mg Documented by: Apixaban (Eliquis) 2.5 mg PO BID [facility] Last Admin: 05/23/20 09:11 Dose: 2.5 mg Documented by: Atorvastatin Calcium (Lipitor) 10 mg PO QHS [facility] Last Admin: 05/22/20 21:36 Dose: 10 mg Documented by: Carvedilol (Coreg) 3.125 mg PO BID [facility] Last Admin: 05/23/20 09:16 Dose: 3.125 mg Documented by: Colchicine (Colchicine) 0.6 mg PO DAILY [facility] Last Admin: 05/23/20 09:11 Dose: 0.6 mg Documented by: Diltiazem HCl (Cardizem Cd) 120 mg PO DAILY [facility] Last Admin: 05/23/20 09:10 Dose: 120 mg Documented by: Furosemide (Lasix) 20 mg PO DAILY [facility] Last Admin: 05/23/20 09:11 Dose: 20 mg Documented by: Sodium Chloride () 250 mls @ 15 mls/hr IV .[id number] PRN PRN Reason: Saline Flush Sodium Chloride () 250 mls @ 15 mls/hr IV .[id number] PRN PRN Reason: Additional IVPB Infusion Ceftriaxone Sodium (Rocephin) 1 gm in 50 mls @ 100 mls/hr IV Q24 [facility] Last Infusion: 05/23/20 10:03 Dose: Infused Documented by: Levothyroxine Sodium (Synthroid) 100 mcg PO [id number]@0600 [facility] Last Admin: 05/23/20 05:04 Dose: 100 mcg Documented by: Loperamide HCl (Imodium) 2 mg PO Q6H PRN PRN PRN Reason: Diarrhea Nitroglycerin (Nitrostat) 0.4 mg SUBLINGUAL Q5M PRN PRN Reason: CARDIAC/CHEST PAIN Nystatin (Mycostatin Powder) 1 applic TOPICAL TID [facility]; Protocol Last Admin: 05/23/20 05:06 Dose: 1 applicatio Documented by: Pantoprazole Sodium (Protonix) 40 mg PO DAILY [facility] Last Admin: 05/23/20 09:10 Dose: 40 mg Documented by: Paroxetine HCl (Paxil) 10 mg PO QHS [facility] Last Admin: 05/22/20 21:36 Dose: 10 mg Documented by: Potassium Chloride (K-Dur) 10 meq PO BID [facility] Last Admin: 05/23/20 09:11 Dose: 10 meq Documented by: Sodium Chloride () 10 - 40 ml IV UD PRN PRN Reason: SALINE FLUSH Last Admin: 05/23/20 09:17 Dose: 10 ml Documented by: Inpatient E&M: [id number] Subs Hosp L2
--- NOTE | 2020-05-23 13:55 | PHA.DC.MR ---
Pharmacy Service has performed discharge medication reconciliation for this patient upon transfer to [facility]. The patient's discharge medication list was reviewed for discrepancies and discrepancies were resolved. Home Medications Atorvastatin Calcium [Lipitor] 10 mg PO QHS 04/17/17 levothyroxine 100 mcg tablet 100 mcg PO DAILY 09/27/17 allopurinol 300 mg tablet 300 mg PO DAILY 03/03/20 Colchicine 0.6 mg PO DAILY 03/04/20 Apixaban [Eliquis] 2.5 mg PO BID 04/03/20 Pantoprazole Sodium 40 mg PO DAILY 04/03/20 Paroxetine [Paxil] 10 mg PO QHS 04/03/20 Albuterol Aerosols [Ventolin Aerosols] 2.5 mg INHALATION Q6H PRN PRN #1 vial 04/04/20 furosemide 20 mg tablet 20 mg PO DAILY 04/20/20 Loperamide [Imodium] 2 mg PO Q6H PRN PRN 05/14/20 Potassium Chloride 10 meq PO BID 05/14/20 Diltiazem CD [Cardizem CD] 120 mg PO DAILY #30 cap 05/18/20 Acetaminophen 2 tab PO Q4H PRN PRN 05/21/20 Carvedilol [Coreg (Beta Ivan)] 3.125 mg PO BID #0 tab 05/23/20 Cefdinir [Omnicef [equiv]] 300 mg PO Q12H #8 cap 05/23/20
--- NOTE | 2020-05-23 14:14 | CASEMGMT ---
YIN called [employer] and spoke with Shavonne. She said they thought the clinicals were for an inpatient hospitalization. She said she will take a look at it and get back with YIN. YIN already faxed orders to [facility]. Nedra REEVES
--- NOTE | 2020-05-23 15:06 | CASEMGMT ---
[facility] YIN called [facility] and arranged for patient to get picked up at via [employer] van. YIN notified RN, patient, clerical secretary, primer charger, and Khloe at [facility]. Patient's son said he did not need a call indicating her strip picker time. YIN called Nereyda at [facility] [address] and let her know patient is going to [place]. Plan: d/c to [facility] under skilled level of care. [facility] will transport via [facility]!. Nedra ROBLES MSW
--- NOTE | 2020-05-23 15:25 | CASEMGMT ---
YIN received a revised med list. YIN faxed this to [facility]. YIN also made a copy and placed copy in her chart and original went in the halfway packet. Nedra ROBLES MSW
[2020-05-23 15:46] LABS: Free T3 1.8 pg/mL (2.18-3.98); T4 Free Direct 1.56 ng/dL (0.76-1.46)
--- NOTE | 2020-05-23 16:07 | NURSING ---
Report called to garrett giang rn
== END 2020-05-23 16:06 | disposition skilled nursing facility (03) | DRG 309 ==
LOC: ED 13:07 → PCU 15:46
PROVIDERS: Nurse Practitioner Family; Admitting Provider Student in an Organized Health Care Education/Training Program; Emergency Provider Student in an Organized Health Care Education/Training Program; Visit Provider Internal Medicine
DX: I48.0 Paroxysmal atrial fibrillation (principal); I50.32 Chronic diastolic (congestive) heart failure; I13.0 Hypertensive heart and chronic kidney disease with heart failure and stage 1 through stage 4 chronic kidney disease, or unspecified chronic kidney disease; N39.0 Urinary tract infection, site not specified; J96.11 Chronic respiratory failure with hypoxia; N18.3 Chronic kidney disease, stage 3 (moderate); B95.2 Enterococcus as the cause of diseases classified elsewhere; E03.9 Hypothyroidism, unspecified; E78.5 Hyperlipidemia, unspecified; E83.52 Hypercalcemia; K21.9 Gastro-esophageal reflux disease without esophagitis; G47.33 Obstructive sleep apnea (adult) (pediatric); E66.9 Obesity, unspecified; F32.9 Major depressive disorder, single episode, unspecified; F41.9 Anxiety disorder, unspecified; M19.90 Unspecified osteoarthritis, unspecified site; M10.9 Gout, unspecified; Z86.711 Personal history of pulmonary embolism; Z86.718 Personal history of other venous thrombosis and embolism; Z86.73 Personal history of transient ischemic attack (TIA), and cerebral infarction without residual deficits; Z68.34 Body mass index [BMI] 34.0-34.9, adult
CPT/HCPCS: 36415; 71045; 80048; 80053; 81001; 83735; 83880; 84439; 84443; 84481; 84484; 85025; 87077; 87086; 87088; 87186; 87635; 93005; 97110; 97162; 97165; 97530; 99285; J7050; P9612; A4216; U0003

== ENCOUNTER 2020-07-28 21:35 | Inpatient (IN) | payer MEDICARE, SELFPAY ==
[2020-05-21 16:37] VITALS: BMI 32.3
[2020-07-28 21:39] VITALS: BP 134/84; PULSE 119; RESP 24; TEMP 36.9; O2SAT 97; BMI 34.7
--- NOTE | 2020-07-28 21:48 | EKG12_ITS ---
Test Reason : CP Blood Pressure : / mmHG Vent. Rate : 107 BPM Atrial Rate : 089 BPM P-R Int : 000 ms QRS Dur : 136 ms QT Int : 362 ms P-R-T Axes : 000 051 -18 degrees QTc Int : 483 ms Atrial fibrillation with rapid ventricular response Right bundle branch block Abnormal ECG Confirmed by SARAH CURTIS, EVA ([id number]), metropolitan editor IZABELA CALLAWAY ([id number]) on 07/29/2020 10:55:26 AM Referred By: ED PHYSICIAN Confirmed By:EVA SMITH MD
[2020-07-28] MEDS: Ondansetron 4 MG/2 ML Vial IV (22:11)
[2020-07-28] MEDS: Morphine 2 MG/ML Syringe IV (22:11)
[2020-07-28] MEDS: 0.9% Normal Saline 1,000 ML 150 ML IV (22:11)
[2020-07-28 22:30] LABS: Absolute Lymphocyte Count 1.97 X10^3/uL (0.83-4.51); Absolute Neutrophil Count 8.6 X10^3/uL (2.0-7.7); Basophil# 0.03 X10^3/uL; Basophil% 0.3 % (0-1); Eosinophil# 0.13 X10^3/uL; Eosinophils% 1.1 % (0-5); Hematocrit 36.3 % (37-47); Hemoglobin 11.5 g/dL (12.0-15.0); Lymphocyte # 1.97 X10^3/ul (4.0); Lymphocyte % 17.3 % (19-41); Mean Corp Hgb Conc 31.7 g/dL (32-36); Mean Corpuscular Hgb 31.7 pg (27.0-32.0); Mean Platelet Vol. 11.9 fl (6.2-12.0); Monocyte# 0.64 X10^3/uL; Monocyte% 5.6 % (0-10); NRBC Flagged by Analyzer 0 % (0-5); Neutrophil # 8.58 X10^3/uL (2.7-7.7); Neutrophil % 75.2 % (47-70); Platelet Count 273 K/mm3 (150-450); RBC Distribution Width CV 14.7 % (11.6-14.6); Red Blood Count 3.63 M/mm3 (4.2-5.4); White Blood Count 11.4 K/mm3 (4.4-11.0)
--- NOTE | 2020-07-28 22:30 | RAD_ITS ---
HISTORY: SUDDEN ABD PAIN AFTER SUPPER, NAUSEA. HEART RATE 122 PER SKILLED NURSING. ADDITIONAL HISTORY: None provided. COMPARISON: CT 03/19/2020 EXAMINATION/TECHNIQUE: XR Abdomen Series W/ Chest 1 View: AP/PA chest with supine and upright abdominal radiographs Number of images including paperwork: 4 FINDINGS: Chest: LUNGS AND PLEURA: No consolidation or pleural effusion. Linear basilar subsegmental atelectasis versus scarring. CARDIOMEDIASTINAL CONTOUR: Stable. Abdomen: FREE AIR: None detected. BOWEL GAS PATTERN: Nonobstructive. Pills noted in the left abdomen. CALCIFICATIONS: No definite urinary tract calculi. Vascular calcifications. ORGANS: No evidence of organomegaly. SOFT TISSUES: Unremarkable. BONES: No acute skeletal abnormality. Degenerative changes. Thoracolumbar scoliosis. DEVICES: Right hip prosthesis. RAD/Acute Abdomen Inc Chest IMPRESSION: 1. No acute cardiopulmonary abnormality is radiographically apparent. 2. No acute abdominal abnormality is radiographically apparent. at 2307 Reported and signed by: Carolann Peña MD Electronically Signed: Carolann Peña MD at 23:07 EST Tel , Service support ,
--- NOTE | 2020-07-28 22:31 | ED.DCSUM_ITS ---
History of Present Illness Chief Complaint: Abd Pain Informant: Patient Onset: Today Context: Sudden Onset Timing: Continuous Quality: Pain Location: Right and left upper quadrant Current Severity: Mild Maximum Severity: Severe Worsened by: Occurred after eating Relieved by: Nothing Associated Symptoms: Nausea with emesis x1 Narrative: Patient is a 80-year-old woman who was sent from [facility] because of acute abdominal pain after eating. Pain is in the upper abdomen. She had episode of emesis. The pain is persistent. She denies fever, chills night sweats. Denies headache, photophobia, neck pain or neck stiffness. She denies rhinorrhea, congestion or postnasal drainage. Denies sore throat. Denies loss of taste or smell. She denies decreased hearing or ringing or ears. She denies cough or shortness of breath. Denies chest pain. She denies diarrhea. She denies dysuria, frequency, urgency or hematuria. She is status post cholecystectomy and appendectomy. She also had repair of ventral hernia by Dr. Hector Cline. 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 (6) Anxiety and depression Status: Chronic (7) Atrial fibrillation Status: Chronic (8) Bilateral pulmonary embolism Status: Chronic (9) COPD (chronic obstructive pulmonary disease) Status: Chronic (10) Carotid stenosis Status: Chronic (11) Chronic diastolic (congestive) heart failure Status: Chronic (12) Chronic kidney disease Status: Chronic (13) DVT (deep venous thrombosis) Status: Chronic (14) Dementia Status: Chronic (15) GERD (gastroesophageal reflux disease) Status: Chronic (16) History of CVA (cerebrovascular accident) Status: Chronic (17) Hyperlipidemia Status: Chronic (18) Hyperparathyroidism Status: Chronic (19) Hypothyroidism Status: Chronic (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 (21) Meningioma Status: Chronic (22) Right bundle branch block Status: Chronic (23) Thoracic aortic aneurysm Status: Chronic Comment: 3.9 cm Past Medical History - Allergies and Home Meds Allergies/Adverse Reactions: Allergies adhesive Allergy (Verified 07/28/20 21:43) Rash irbesartan Allergy (Verified 07/28/20 21:43) Unknown solifenacin [From Vesicare] Allergy (Verified 07/28/20 21:43) Unknown sulindac [Sulindac] Allergy (Verified 07/28/20 21:43) Unknown lisinopril Adverse Reaction (Verified 07/28/20 21:43) Other COUGH losartan potassium [From Cozaar] Adverse Reaction (Verified 07/28/20 21:43) Other metoprolol Adverse Reaction (Verified 07/28/20 21:43) GI Upset ramipril [From Altace] Adverse Reaction (Verified 07/28/20 21:43) Other tramadol Adverse Reaction (Verified 07/28/20 21:43) Unknown Primary Care Physician: Care Physician,No Primary [Primary Care Provider] - Prior records reviewed: Yes Surgical History: appendectomy, cholecystectomy, herniorrhaphy - With mesh, extensive per patient, total hip arthroplasty - Right, total knee arthroplasty - Bilateral, - - Esophageal dilation Lives: Group Home Smoking Status: Never smoker Alcohol: None Drugs: None - Family History Paternal Family History: Family History (Last Reviewed 04/03/20 @ 16:40 by ALESSANDRO Lomeli) Father CVA (cerebral vascular accident) Mother CAD (coronary artery disease) Congestive heart failure Family History: Reports: Stroke, No pertinent history - No history of lung disease or autoimmune disease Maternal Family History: Family History (Last Reviewed 04/03/20 @ 16:40 by ALESSANDRO Lomeli) Father CVA (cerebral vascular accident) Mother CAD (coronary artery disease) Congestive heart failure Family History: Reports: Stroke, No pertinent history - No history of lung disease autoimmune disease Review of Systems General: Denies: Chills, Fever, Malaise, Subjective Eyes: Denies: Visual changes - bilaterally, Blurred Vision - bilaterally ENT: Denies: Bilateral ear pain, Rhinorrhea, Sore throat Cardiovascular: Denies: Chest pain, Palpitations Respiratory: Denies: Dyspnea, Cough, Sputum, Dyspnea on exertion, Orthopnea Gastrointestinal: Reports: Abdominal pain, Nausea, Vomiting. Denies: Diarrhea, Constipation, Melena, Hematochezia Genitourinary: Denies: Dysuria, Hematuria, Frequency Musculoskeletal: Denies: Myalgias, Arthralgias, Neck pain, Back pain, Swelling, Extremity Pain, -, - Skin: Denies: Rash, Abscess, Abrasions, Wounds Neurological: Denies: Headache, Parasthesia Psych: Denies: Depression, Anxiety Hematologic: Denies: Easy bruising, Easy bleeding Allergy: Denies: Uticaria Physical Exam Vital Signs/Narrative: Vital Signs Temp Pulse Resp BP Pulse Ox 07/28/20 21:39 98.5 F 119 H 24 H 134/84 H 97 Inital Vital Signs reviewed: Yes General: Well nourished, Well developed, No Acute Distress Head: Normocephalic, Atraumatic Eyes: Perrl, EOMI ENT: Moist mucous membranes, No rhinorrhea Neck: Supple, Nontender Cardiovascular: Regular rate, Regular rhythm, No murmurs Respiratory: No distress, CTA bilaterally, Chest nontender Abdomen: Soft, Nondistended, Normal bowel sounds, Tender, Ventral hernia, Hernia irreducible. Negative for: Guarding, Rebound tenderness Back: Nontender, Normal Inspection. Negative for: CVA tenderness Extremities: Nontender, No edema Skin: Normal color, No rash, No Trauma. Negative for: Cyanosis, Diaphoresis, Jaundice Neurological: Alert, Oriented x3, Cranial nerves II-XII grossly intact, Normal Strength, Normal Sensation Psychological: Normal affect, Normal Mood Diagnostic/Tx/Re-eval Impressions Acute Abdomen Series 07/28/20 22:30 IMPRESSION: 1. No acute cardiopulmonary abnormality is radiographically apparent. 2. No acute abdominal abnormality is radiographically apparent. at 2307 Reported and signed by: Carolann Peña MD Electronically Signed: Carolann Peña MD at 23:07 EST Tel , Service support , 07/28/20 22:30 Acute Abdomen Inc Chest [RAD] Stat Laboratory Results 07/28/20 07/28/20 22:00 22:00 WBC 11.4 H RBC 3.63 L Hgb 11.5 L Hct 36.3 L MCV 100.0 H MCH 31.7 MCHC 31.7 L RDW Std Deviation 54.0 H RDW Coeff of Cricket 14.7 H Plt Count 273 MPV 11.9 Immature Gran % (Auto) 0.500 Neut % (Auto) 75.2 H Lymph % (Auto) 17.3 L [place] % (Auto) 5.6 Eos % (Auto) 1.1 Baso % (Auto) 0.3 Absolute Neuts (auto) 8.6 H Absolute Lymphs (auto) 1.97 Nucleated RBC % 0 Sodium 143 Potassium 4.1 Chloride 108 H Carbon Dioxide 31.0 Anion Gap 4 L BUN 17 Creatinine 1.33 H Estim Creat Clear Calc 40.14 Est GFR (MDRD) Af Amer 49 L Est GFR (MDRD) Non-Af 41 L BUN/Creatinine Ratio 12.8 Glucose 147 H Calcium 10.0 Total Bilirubin 0.40 Direct Bilirubin 0.17 AST 23 ALT 22 Alkaline Phosphatase 147 H Total Protein 5.8 L Albumin 2.9 L Globulin 2.9 Lipase 28836 H Count is slightly elevated with slight shift no bandemia. Creatinine is elevated 1.3 with a GFR of 41. Lipase is 16,003 of 69 consistent with acute pancreatitis. Patient was medicated with morphine. Will contact hospitalist for admission. - Rhythm Strip Rhythm Strip: Sinus Tach Rate: 120 Ectopy: None - Medical Decision Making Patient abdominal pain is unknown. She does have a ventral hernia which is reducible. Work-up was initiated to determine the etiology of her abdominal pain which could be due to esophageal spasm, dull pain of unknown etiology, ED Disposition - Plan for ED Patient: Disposition: Acute Care Hospital [facility] Diagnosis: Acute pancreatitis, Nausea and vomiting, Anemia, Sinus tachycardia seen on floor inspector Referrals: Care Physician,No Primary [Primary Care Provider] -
[2020-07-28 22:51] LABS: AST(SGOT) 23 U/L (15-37); Alanine Aminotransfer ALT/SGPT 22 U/L (13-56); Albumin, Serum 2.9 g/dL (3.2-5.0); Alkaline Phosphatase 147 U/L (45-117); Anion Gap 4 (5-15); BUN 17 mg/dL (7-18); BUN/Creat Ratio 12.8 RATIO (10-20); Bilirubin, Direct 0.17 mg/dL (0.00-0.30); Chloride 108 mmol/L (98-107); Creatinine, Serum 1.33 mg/dL (0.55-1.02); EST Glomerular Filtration Rate 41 mL/min (>60); Est Glom Filt Rate - Afr Amer 49 mL/min (>60); Estimated Creatinine Clearance 40.14 ml/min; Globulin 2.9 g/dL (2.2-4.2); Glucose 147 mg/dL (74-106); Lipase 16369 U/L (73-393); Potassium 4.1 mmol/L (3.5-5.1); Protein, Total 5.8 g/dL (6.4-8.2); Sodium Level 143 mmol/L (136-145)
--- NOTE | 2020-07-28 23:20 | HP.PCM_ITS ---
Problem List (1) Acute pancreatitis Status: Acute Qualifiers: Pancreatitis type: unspecified pancreatitis type (2) Hyperglycemia Status: Acute (3) COVID-19 Status: Resolved (4) Anemia Status: Chronic Qualifiers: Anemia type: unspecified type Qualified Code(s): D64.9 - Anemia, unspecified (5) Bilateral pulmonary embolism Status: Chronic (6) DVT (deep venous thrombosis) Status: Chronic Qualifiers: Affected thrombotic vein of extremity: unspecified vein of extremity Chronicity: unspecified Laterality: unspecified laterality (7) Hyperlipidemia Status: Chronic Qualifiers: Hyperlipidemia type: unspecified Qualified Code(s): E78.5 - Hyperlipidemia, unspecified (8) Obstructive sleep apnea Status: Chronic (9) Carotid stenosis Status: Chronic Qualifiers: Laterality: unspecified laterality Qualified Code(s): I65.29 - Occlusion and stenosis of unspecified carotid artery (10) Chronic kidney disease Status: Chronic Qualifiers: Chronic kidney disease stage: stage 3 (moderate) (11) Dementia Status: Chronic Qualifiers: Dementia type: unspecified type Dementia behavioral disturbance: without behavioral disturbance Qualified Code(s): F03.90 - Unspecified dementia without behavioral disturbance (12) Chronic diastolic heart failure Status: Chronic (13) Paroxysmal atrial fibrillation Status: Chronic (14) Hypothyroidism Status: Chronic Qualifiers: Hypothyroidism type: unspecified (15) Hypertension Status: Chronic Qualifiers: Hypertension type: essential hypertension Qualified Code(s): I10 - Essential (primary) hypertension (16) GERD (gastroesophageal reflux disease) Status: Chronic Qualifiers: Esophagitis presence: esophagitis presence not specified Qualified Code(s): K21.9 - Gastro-esophageal reflux disease without esophagitis (17) History of esophageal dilatation Status: Chronic (18) Anxiety and depression Status: Chronic (19) Thoracic aortic aneurysm Status: Chronic Qualifiers: Presence of rupture: without rupture Qualified Code(s): I71.2 - Thoracic aortic aneurysm, without rupture Comment: 3.9 cm (20) History of CVA (cerebrovascular accident) Status: Chronic History of Present Illness Date of Admission: 07/28/20 Chief Complaint: Abdominal pain, nausea. The patient is a 80 y/o F w/ PMHx: Hypothyroidism, Chronic anemia, Anxiety and Depression, Hx AVB type 1, Diastolic CHF, CKD stage III, GERD, Hx CVA, Hypothyroidism, RODOLFO, PAF, Known Thoracic aortic aneurysm (3.9 cm), Dementia unclear type with unclear behavioral disturbance history, Hx carotid stenosis who presents to the [facility] ED on 07/28/20 from SNF with history of acute onset epigastric pain starting 1 hour following dinner, noted to be severe, BL upper quadrant with nausea and emesis related. Patient rated pain at 10 out of 10, worse with any palpation. She denies ever having had an episode like this prior. She denies any fever, chills, diarrhea, cough, dyspnea, alteration to sense of taste/smell. Patient of note had positive COVID testing 2 weeks ago, noted to be asymptomatic, completed her quarantine. Currently patient rates pain 5 out of 10, worse with any palpation attempt. Work-up in the ED included T 98.5, heart rate 119, BP 134/84, respiratory rate 24, 97% on room air, CBC with WC 11.4, hemoglobin 11.5, platelet 273 with left shift, CMP with chloride 108, BUN/10 and 17/1.33, glucose 147, unremarkable LFTs, alk phos 147, lipase 16,369, acute abdominal series with no acute cardiopulmonary findings, EKG with sinus tachycardia with no acute evidence of ischemia. In the ED patient is to normal saline, Zofran, morphine. Past Medical History Past Medical History (Chronic Problems): Chronic Problems (Last Reviewed 03/19/20 @ 14:[address] Naina Llamas, DO) Anemia (Chronic) Pressure ulcer of right buttock, stage 2 (Chronic) Bilateral pulmonary embolism (Chronic) Chronic respiratory failure with hypoxia (Chronic) Gastric ulcer (Chronic) Stroke (Chronic) DVT (deep venous thrombosis) (Chronic) Atrial fibrillation (Chronic) Thoracic aortic aneurysm (Chronic) Chronic diastolic (congestive) heart failure (Chronic) COPD (chronic obstructive pulmonary disease) (Chronic) Gout (Chronic) Allergic rhinitis (Chronic) Hypokalemia (Chronic) Hyperlipidemia (Chronic) Obstructive sleep apnea (Chronic) Carotid stenosis (Chronic) Chronic kidney disease (Chronic) Dementia (Chronic) Meningioma (Chronic) Chronic diastolic heart failure (Chronic) Paroxysmal atrial fibrillation (Chronic) Diastolic CHF, acute (Chronic) Dyspnea on exertion (Chronic) Hyperparathyroidism (Chronic) Hypothyroidism (Chronic) Lymphomatoid papulosis (Chronic) Hypertension (Chronic) Obesity (Chronic) Right bundle branch block (Chronic) AV block, 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 Naina Llamas, DO) Hyperlipidemia (Chronic) E78.5 Obstructive sleep apnea (Chronic) G47.33 Carotid stenosis (Chronic) I65.29 Chronic kidney disease (Chronic) N18.9 Dementia (Chronic) F03.90 Meningioma (Chronic) D32.9 Chronic diastolic heart failure (Chronic) I50.32 Paroxysmal atrial fibrillation (Chronic) I48.0 Diastolic CHF, acute (Chronic) I50.31 Dyspnea on exertion (Chronic) R06.09 Hyperparathyroidism (Chronic) E21.3 Hypothyroidism (Chronic) E03.9 Lymphomatoid papulosis (Chronic) C86.6 Hypertension (Chronic) I10 Obesity (Chronic) E66.9 Right bundle branch block (Chronic) I45.10 AV block, 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) I44.0 GERD (gastroesophageal reflux disease) (Chronic) K21.9 Anxiety and depression (Chronic) F41.9, F32.9 Thoracic aortic aneurysm (Chronic) I71.2 3.9 cm History of CVA (cerebrovascular accident) (Chronic) Z86.73 Osteoarthritis M19.90 Allergies adhesive Allergy (Verified 07/28/20 21:43) Rash irbesartan Allergy (Verified 07/28/20 21:43) Unknown solifenacin [From Vesicare] Allergy (Verified 07/28/20 21:43) Unknown sulindac [Sulindac] Allergy (Verified 07/28/20 21:43) Unknown lisinopril Adverse Reaction (Verified 07/28/20 21:43) Other COUGH losartan potassium [From Cozaar] Adverse Reaction (Verified 07/28/20 21:43) Other metoprolol Adverse Reaction (Verified 07/28/20 21:43) GI Upset ramipril [From Altace] Adverse Reaction (Verified 07/28/20 21:43) Other tramadol Adverse Reaction (Verified 07/28/20 21:43) Unknown Home Medications: Ambulatory Orders Medication Instructions Recorded Atorvastatin Calcium [Lipitor] 10 mg PO QHS 04/17/17 allopurinol 300 mg tablet 300 mg PO DAILY 03/03/20 Colchicine 0.6 mg PO DAILY 03/04/20 Apixaban [Eliquis] 2.5 mg PO BID 04/03/20 Pantoprazole Sodium 40 mg PO DAILY 04/03/20 Paroxetine [Paxil] 10 mg PO QHS 04/03/20 Albuterol Aerosols [Ventolin 2.5 mg INHALATION Q6H PRN PRN #1 04/04/20 Aerosols] vial furosemide 20 mg tablet 20 mg PO DAILY 04/20/20 Loperamide [Imodium] 2 mg PO Q6H PRN PRN 05/14/20 Potassium Chloride 10 meq PO BID 05/14/20 Diltiazem CD [Cardizem CD] 120 mg PO DAILY #30 cap 05/18/20 Acetaminophen 2 tab PO Q4H PRN PRN 05/21/20 Carvedilol [Coreg (Beta Ivan)] 3.125 mg PO BID #0 tab 05/23/20 Levothyroxine [Synthroid] 75 mcg PO [id number]@0600 tab 05/23/20 Surgical History: Surgical History (Last Reviewed 03/19/20 @ 14:[address] Naina Llamas, DO) History of esophageal dilatation (Chronic) Z98.890 H/O total knee replacement Z96.659 History of incisional hernia repair Z98.890, Z87.19 History of total hip replacement Z96.649 Hx of cholecystectomy Z98.890, Z90.49 Surgical History: appendectomy, cholecystectomy, herniorrhaphy - With mesh, extensive per patient, total hip arthroplasty - Right, total knee arthroplasty - Bilateral, - - Esophageal dilation Psychiatric History: Anxiety, Depression [employer]MENT [employer]ENDER History: - - Tubal ligation Lives: Correction Smoking Status: Never smoker Alcohol: None Drugs: None - *Family History Paternal Family History: Family History (Last Reviewed 04/03/20 @ 16:40 by ALESSANDRO Lomeli) Father CVA (cerebral vascular accident) Mother CAD (coronary artery disease) Congestive heart failure History Items: Stroke Maternal Family History: Family History (Last Reviewed 04/03/20 @ 16:40 by ALESSANDRO Lomeli) Father CVA (cerebral vascular accident) Mother CAD (coronary artery disease) Congestive heart failure History Items: Stroke Review of Systems Constitutional: Reports: Anorexia, Malaise, Weakness, Fatigue. Denies: Chills, Fever, Weight Change HEENT: Reports: Difficulty Hearing. Denies: Head Aches, Sinus Congestion, Sinus Drainage Cardiovascular: Denies: Chest Pain, Palpitations Respiratory: Denies: Cough, Shortness of breath at rest, Sputum production Gastrointestinal: Reports: Abdominal Pain, Nausea, Vomiting Genitourinary: Denies: Dysuria Musculoskeletal: Reports: Back Pain, Joint Pain. Denies: Joint Tenderness Skin: Denies: Rash, Wounds Neurological: Denies: Numbness, Tingling, Focal weakness Psychiatric: Reports: Anxiety, Depression. Denies: Homicidal Ideations, Suicidal Ideations Hematologic/ Lymphatic: Reports: Anemia, Easy Bruising, Easy Bleeding VTE Information - Inpt Only VTE Present on Admission: No VTE Mechan Device Prophylaxis: SCD's VTE Pharm Prophylaxis ordered?: No Reason prophylaxis not ordered:: Treatment Not Indicated - Continue patient home eliquis regimen. Patient Problems: Active and Suspected Problems (Last Reviewed 03/19/20 @ 14:[address] Naina Llamas, DO) Acute pancreatitis (Acute) Nausea and vomiting (Acute) Sinus tachycardia seen on surveillance monitor (Acute) Upper GI bleeding (Acute) Dyspnea (Acute) Debility (Acute) Generalized weakness (Acute) Subjective: Patient seated upright in the bed, uncomfortable and fatigued appearing. Objective: Physical Examination: General: awake, alert, oriented to self, place and recent events, remains cooperative, seated upright in the ED bed, evident discomfort. Skin: normal color, turgor, no icterus, cyanosis. HEENT: AT/NC, EOMI, PERRLA, dry MM, no carotid bruits or JVD noted. Lungs: Diminished breath sounds, moderate decrease BL bases, no rales, ronchi or wheezing. Heart: Tachycardic with regular rhythm; no gallop, rub audible. Abdomen: soft, significant discomfort to bilateral upper quadrant and epigastric region, voluntary guarding, no significant distention discerned, mildly hyperactive BS, difficult to assess HSM secondary to pain. Extremities: no cyanosis or clubbing, bilateral ankle to distal grande edema. Neurological: patient awake, alert, oriented as noted; cognitive function suspect near baseline intact with underlying dementia history; pupils equally reactive to light and accomodation; cranial nerves II-XII grossly normal, moving all 4 extremities, no focal deficits, strength severely globally decreased secondary to acute presentation. Psychiatric: affect appears uncomfortable, fatigued, no acute evidence of depressive or anxiety feelings. - Physical Exam Vitals/I&O's: Vital Signs Temp Pulse Resp BP Pulse Ox 98.5 F 119 H 24 H 134/84 H 97 07/28/20 21:39 07/28/20 21:39 07/28/20 21:39 07/28/20 21:39 07/28/20 21:39 Oxygen Delivery Method Room Air Weight: 171 lb 13.958 oz Body Mass Index (BMI) 34.7 Finger Stick Blood Glucose 132 Laboratory Results 07/28/20 22:00: WBC 11.4 H, RBC 3.63 L, Hgb 11.5 L, Hct 36.3 L, MCV 100.0 H, MCH 31.7, MCHC 31.7 L, RDW Std Deviation 54.0 H, RDW Coeff of Cricket 14.7 H, Plt Count 273, MPV 11.9, Immature Gran % (Auto) 0.500, Neut % (Auto) 75.2 H, Lymph % (Auto) 17.3 L, Dickenson % (Auto) 5.6, Eos % (Auto) 1.1, Baso % (Auto) 0.3, Absolute Neuts (auto) 8.6 H, Absolute Lymphs (auto) 1.97, Nucleated RBC % 0 07/28/20 22:00: Sodium 143, Potassium 4.1, Chloride 108 H, Carbon Dioxide 31.0, Anion Gap 4 L, BUN 17, Creatinine 1.33 H, Estim Creat Clear Calc 40.14, Est GFR (MDRD) Af Amer 49 L, Est GFR (MDRD) Non-Af 41 L, BUN/Creatinine Ratio 12.8, Glucose 147 H, Calcium 10.0, Total Bilirubin 0.40, Direct Bilirubin 0.17, AST 23, ALT 22, Alkaline Phosphatase 147 H, Total Protein 5.8 L, Albumin 2.9 L, Globulin 2.9, Lipase 66415 H Current Medications Sodium Chloride () 1,000 mls @ 150 mls/hr IV .Q6H40M CHALINO Last Admin: 07/28/20 22:11 Dose: 150 mls/hr Documented by: Assessment/Plan All Active Problems (Last Reviewed 03/19/20 @ 14:[address] Naina Llamas, DO) Acute pancreatitis (Acute) Nausea and vomiting (Acute) Sinus tachycardia seen on surveillance monitor (Acute) COVID-19 (Resolved) Hyperglycemia (Acute) Upper GI bleeding (Acute) Acute blood loss anemia (Acute) Atrial fibrillation with rapid ventricular response (Acute) Dyspnea (Acute) Back pain (Acute) Debility (Acute) Shortness of breath (Acute) Left ankle sprain (Acute) Multiple falls (Acute) JESSICA (acute kidney injury) (Acute) Generalized weakness (Acute) UTI (urinary tract infection) (Acute) Bradycardia (Acute) Confusion (Resolved) Esophageal stricture (Resolved) Expressive aphasia (Resolved) Hypoxia (Resolved) The patient is a 80 y/o F w/ PMHx: Hypothyroidism, Chronic anemia, Anxiety and Depression, Hx AVB type 1, Diastolic CHF, CKD stage III, GERD, Hx CVA, Hypothy roidism, RODOLFO, PAF, Known Thoracic aortic aneurysm (3.9 cm), Dementia unclear type with unclear behavioral disturbance history, Hx carotid stenosis who presents to the [facility] ED on 07/28/20 from SNF with history of acute onset epigastric pain starting 1 hour following dinner, noted to be severe. 1. Acute pancreatitis w/ abdominal pain, N/V: Will admit to MS, maintain on IVFs and continue to closely monitor given CHF history, NPO, PPI, IV/po pain control, trend lipase, CMP. Patient is status post cholecystectomy. We will obtain FLP. No alcohol consumption is risk. Given significant presentation will request consultation with general surgery as patient may necessitate consideration for upper endoscopy. May need to consider further imaging. 2. Recent Supposed COVID-19 asymptomatic Positive status: From outside facility patient 2 weeks prior with Covid positive status, unclear specific testing type, if possibly antigen testing may have been a false positive, regardless patient is out of quarantine. Patient does admit poor recent appetite otherwise no symptoms. 3. Hyperglycemia: Admission glucose 147, likely stress response but will obtain A1c to be cautious. 4. Chronic Diastolic CHF: Will continue home Eliquis, statin, Coreg, holding Lasix temporarily as noted, resume once appropriate. 5. PAF: We will continue patient home Eliquis, Coreg and diltiazem regimen. 6. Chronic anemia: Admission hemoglobin 11.5, baseline appears 9-11, MCV noted to be 100, prior normal but does vacillate, continue to trend with continued outpatient follow-up. 7. Chronic Kidney Disease Stage III: Admission BUN/Cr 17/1.33, baseline renal function 1.3-1.5 consistent with baseline, repeat CMP in a.m. 8. Hx CVA: Will continue home Eliquis, statin, HTN regimen. 9. Hypothyroidism: Continue home synthroid regimen. 10. Dementia, unclear type with unclear behavioral disturbance history: Complicates presentation, will maintain on fall precautions. 11. Hypertension: Continue home regimen including Coreg, diltiazem with hold parameters as needed, temporarily holding Lasix given need for hydration given #1, resume once appropriate, PRN hydralazine. 12. Hyperlipidemia: Continue home statin regimen. 13. Gout: We will continue patient home allopurinol and colchicine regimen. Regimen. 14. Anxiety and depression: We will continue patient home Paxil regimen. 15. RODOLFO: Continue home CPAP nightly if nausea/emesis controlled. 16. GERD: We will maintain on PPI. 17. DVT prophylaxis: SCDs, continue home eliquis. 18. CODE STATUS: DNR CCA, no intubation facility paperwork. Inpatient E&M: 15925 Init Hosp L3
--- NOTE | 2020-07-28 23:22 | ED.RN ---
ROSHAN BOOTHE CALLED AND NOTIFIED OF ADMISSION
--- NOTE | 2020-07-28 23:23 | ED.RN ---
SPOKE WITH SON NOTIFIED OF ADMISSION LEFT MESSAGE WITH DAUGHTER AT THIS TIME
[2020-07-28 23:50] VITALS: BP 119/84; PULSE 107; RESP 20; RESP 21; TEMP 36.5; O2SAT 93
[2020-07-29] VITALS (8 sets, daily range): BP systolic 104–137; BP diastolic 56–82; PULSE 62–103; RESP 14–22; TEMP 36.4–37.3; O2SAT 92–100; BMI 32.9
[2020-07-29 01:00] LABS: Lipase 16510 U/L (73-393)
[2020-07-29] MEDS: oxyCODONE 5 MG Tablet PO (01:09)
[2020-07-29] MEDS: 0.9% Normal Saline 1,000 ML 150 ML IV ×3 (01:35→14:50)
--- NOTE | 2020-07-29 03:38 | CPS ---
pt cot compliant at home with cpap, Does not want cpap now
[2020-07-29] MEDS: Menthol/Lanolin/Calamine/Znox 113 GM Tube 1 APPLIC TOPICAL ×3 (06:00→22:05)
[2020-07-29] MEDS: Levothyroxine 75 MCG Tablet PO (06:00)
[2020-07-29] MEDS: Nystatin Powder 15gm Bottle 1 APPLIC TOPICAL ×3 (06:01→22:11)
[2020-07-29 08:49] LABS: Absolute Lymphocyte Count 1.18 X10^3/uL (0.83-4.51); Absolute Neutrophil Count 8.8 X10^3/uL (2.0-7.7); Basophil# 0.03 X10^3/uL; Basophil% 0.3 % (0-1); Eosinophil# 0.15 X10^3/uL; Eosinophils% 1.4 % (0-5); Hematocrit 38.2 % (37-47); Hemoglobin 11.5 g/dL (12.0-15.0); Lymphocyte # 1.18 X10^3/ul (4.0); Lymphocyte % 10.7 % (19-41); Mean Corp Hgb Conc 30.1 g/dL (32-36); Mean Corpuscular Hgb 31.1 pg (27.0-32.0); Mean Corpuscular Volume 103.2 fL (81-99); Mean Platelet Vol. 11.6 fl (6.2-12.0); Monocyte# 0.84 X10^3/uL; Monocyte% 7.6 % (0-10); NRBC Flagged by Analyzer 0 % (0-5); Neutrophil # 8.82 X10^3/uL (2.7-7.7); Neutrophil % 79.6 % (47-70); Platelet Count 243 K/mm3 (150-450); RBC Distribution Width SD 56.9 fl (35.1-43.9); White Blood Count 11.1 K/mm3 (4.4-11.0)
[2020-07-29 09:07] LABS: AST(SGOT) 22 U/L (15-37); Alanine Aminotransfer ALT/SGPT 20 U/L (13-56); Albumin, Serum 2.6 g/dL (3.2-5.0); Alkaline Phosphatase 146 U/L (45-117); Anion Gap 3 (5-15); BUN 15 mg/dL (7-18); Calcium,Total 9.5 mg/dL (8.5-10.1); Chloride 113 mmol/L (98-107); Cholesterol 118 mg/dL (200); Creatinine, Serum 1.15 mg/dL (0.55-1.02); EST Glomerular Filtration Rate 48 mL/min (>60); Est Glom Filt Rate - Afr Amer 58 mL/min (>60); Estimated Creatinine Clearance 43.97 ml/min; Globulin 2.7 g/dL (2.2-4.2); Glucose 87 mg/dL (74-106); High Density Lipoprotein 44 mg/dL; Potassium 4.1 mmol/L (3.5-5.1); Protein, Total 5.3 g/dL (6.4-8.2); Sodium Level 145 mmol/L (136-145); Triglycerides 103 mg/dL; Very Low Density Lipoprotein 21 mg/dL (5-40)
[2020-07-29 09:12] LABS: Hemoglobin A1c 5.7 % (3.8-5.6)
--- NOTE | 2020-07-29 09:16 | CASEMGMT ---
Addendum entered by Nola Arevalo 07/29/20 11:22: YIN faxed COVID screening tool and negative COVID test to [facility]. SW placed Green sheet, transport form, COVID screening tool on pt's chart. Plan: Return to [facility] once medically cleared Original Note: Social Work Note Pt is listed as being from [facility]. YIN placed a call to [facility] and spoke with Nereyda. 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 Pt will need COVID test to return. YIN updated Nereyda that pt will likely return over the weekend. Nereyda states understanding. SW in to speak with pt. YIN introduced self and role at [facility]. Pt is alert and orientated x3. Pt confirms that she is from [facility] and will be returning there at discharge. Charge Nurse updated that pt will need COVID test. YIN will fax clinicals to [facility]. Plan: Return to [facility] once medically cleared Nola Arevalo [employer], ROUTING EQUIPMENT TENDER
[2020-07-29] MEDS: APIXABAN 2.5 MG TABLET PO ×2 (10:26→22:08)
[2020-07-29] MEDS: Carvedilol 3.125 MG TABLET PO ×2 (10:26→22:08)
[2020-07-29] MEDS: dilTIAZem CD 120 MG Capsule PO (10:26)
[2020-07-29] MEDS: Allopurinol 300 MG Tablet PO (10:27)
--- NOTE | 2020-07-29 12:22 | NURSING ---
Attempted to call Daughter Katty with update at this time. Left a message with call back number.
--- NOTE | 2020-07-29 12:40 | PCM.CONS.GEN ---
Problem List (1) Acute pancreatitis Status: Acute Qualifiers: Pancreatitis type: unspecified pancreatitis type Reason for Consult Date of Consultation: 07/29/20 Reason for Consultation: Pancreatitis History of Present Illness: The patient is a 80 year old F presented from her custodial yesterday with abdominal pain. The patient describes upper abdominal pain. She is not having any nausea or vomiting today. She does not describe any radiation of the pain. She is says she has never had pancreatitis in the past. Patient denies any shortness of breath or chest pain or fevers or chills. Past Medical History Past Medical History (Chronic Problems): Chronic Problems (Last Reviewed 03/19/20 @ 14:[address] Naina Llamas DO) Anemia (Chronic) Pressure ulcer of right buttock, stage 2 (Chronic) Bilateral pulmonary embolism (Chronic) Chronic respiratory failure with hypoxia (Chronic) Gastric ulcer (Chronic) Stroke (Chronic) DVT (deep venous thrombosis) (Chronic) Atrial fibrillation (Chronic) Thoracic aortic aneurysm (Chronic) Chronic diastolic (congestive) heart failure (Chronic) COPD (chronic obstructive pulmonary disease) (Chronic) Gout (Chronic) Allergic rhinitis (Chronic) Hypokalemia (Chronic) Hyperlipidemia (Chronic) Obstructive sleep apnea (Chronic) Carotid stenosis (Chronic) Chronic kidney disease (Chronic) Dementia (Chronic) Meningioma (Chronic) Chronic diastolic heart failure (Chronic) Paroxysmal atrial fibrillation (Chronic) Diastolic CHF, acute (Chronic) Dyspnea on exertion (Chronic) Hyperparathyroidism (Chronic) Hypothyroidism (Chronic) Lymphomatoid papulosis (Chronic) Hypertension (Chronic) Obesity (Chronic) Right bundle branch block (Chronic) AV block, 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 Naina Llamas DO) Hyperlipidemia (Chronic) E78.5 Obstructive sleep apnea (Chronic) G47.33 Carotid stenosis (Chronic) I65.29 Chronic kidney disease (Chronic) N18.9 Dementia (Chronic) F03.90 Meningioma (Chronic) D32.9 Chronic diastolic heart failure (Chronic) I50.32 Paroxysmal atrial fibrillation (Chronic) I48.0 Diastolic CHF, acute (Chronic) I50.31 Dyspnea on exertion (Chronic) R06.09 Hyperparathyroidism (Chronic) E21.3 Hypothyroidism (Chronic) E03.9 Lymphomatoid papulosis (Chronic) C86.6 Hypertension (Chronic) I10 Obesity (Chronic) E66.9 Right bundle branch block (Chronic) I45.10 AV block, 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) I44.0 GERD (gastroesophageal reflux disease) (Chronic) K21.9 Anxiety and depression (Chronic) F41.9, F32.9 Thoracic aortic aneurysm (Chronic) I71.2 3.9 cm History of CVA (cerebrovascular accident) (Chronic) Z86.73 Osteoarthritis M19.90 Allergies adhesive Allergy (Verified 07/28/20 21:43) Rash irbesartan Allergy (Verified 07/28/20 21:43) Unknown solifenacin [From Vesicare] Allergy (Verified 07/28/20 21:43) Unknown sulindac [Sulindac] Allergy (Verified 07/28/20 21:43) Unknown lisinopril Adverse Reaction (Verified 07/28/20 21:43) Other COUGH losartan potassium [From Cozaar] Adverse Reaction (Verified 07/28/20 21:43) Other metoprolol Adverse Reaction (Verified 07/28/20 21:43) GI Upset ramipril [From Altace] Adverse Reaction (Verified 07/28/20 21:43) Other tramadol Adverse Reaction (Verified 07/28/20 21:43) Unknown Home Medications: Ambulatory Orders Medication Instructions Recorded Atorvastatin Calcium [Lipitor] 10 mg PO QHS 04/17/17 allopurinol 300 mg tablet 300 mg PO DAILY 03/03/20 Apixaban [Eliquis] 2.5 mg PO BID 04/03/20 Pantoprazole Sodium 40 mg PO DAILY 04/03/20 Paroxetine [Paxil] 10 mg PO QHS 04/03/20 Albuterol Aerosols [Ventolin 2.5 mg INHALATION Q6H PRN PRN #1 04/04/20 Aerosols] vial furosemide 20 mg tablet 20 mg PO DAILY 04/20/20 Loperamide [Imodium] 2 mg PO Q6H PRN PRN 05/14/20 Potassium Chloride 10 meq PO BID 05/14/20 Diltiazem CD [Cardizem CD] 120 mg PO DAILY #30 cap 05/18/20 Acetaminophen 2 tab PO Q4H PRN PRN 05/21/20 Carvedilol [Coreg (Beta Ivan)] 3.125 mg PO BID #0 tab 05/23/20 Levothyroxine [Synthroid] 75 mcg PO [id number]@0600 tab 05/23/20 Lactobacillus Acidophilus 1 ea PO DAILY 07/29/20 [Acidophilus] Vitamin E 200 unit PO DAILY 07/29/20 Zinc 50 mg PO DAILY 07/29/20 Surgical History: Surgical History (Last Reviewed 03/19/20 @ 14:[address] Naina Llamas DO) History of esophageal dilatation (Chronic) Z98.890 H/O total knee replacement Z96.659 History of incisional hernia repair Z98.890, Z87.19 History of total hip replacement Z96.649 Hx of cholecystectomy Z98.890, Z90.49 Surgical History: appendectomy, cholecystectomy, herniorrhaphy - With mesh, extensive per patient, total hip arthroplasty - Right, total knee arthroplasty - Bilateral, - - Esophageal dilation Psychiatric History: Anxiety, Depression [employer] History: - - Tubal ligation Lives: Residential Smoking Status: Never smoker Alcohol: None Drugs: None - *Family History Paternal Family History: Family History (Last Reviewed 04/03/20 @ 16:40 by ALESSANDRO Lomeli) Father CVA (cerebral vascular accident) Mother CAD (coronary artery disease) Congestive heart failure History Items: Stroke Maternal Family History: Family History (Last Reviewed 04/03/20 @ 16:40 by ALESSANDRO Lomeli) Father CVA (cerebral vascular accident) Mother CAD (coronary artery disease) Congestive heart failure History Items: Stroke Review of Systems Constitutional: Denies: Anorexia, Fever HEENT: Reports: Difficulty Hearing. Denies: Difficulty Swallowing Cardiovascular: Denies: Chest Pain Respiratory: Denies: Cough, Pleuritic Pain, Shortness of Breath Gastrointestinal: Reports: Abdominal Pain. Denies: Nausea, Vomiting Genitourinary: Denies: Dysuria Neurological: Denies: Blurred vision Psychiatric: Denies: Anxiety Hematologic/ Lymphatic: Denies: Anemia Patient Problems: Active and Suspected Problems (Last Reviewed 03/19/20 @ 14:[address] Naina Llamas DO) Acute pancreatitis (Acute) Nausea and vomiting (Acute) Sinus tachycardia seen on monitor tech (Acute) Hyperglycemia (Acute) Upper GI bleeding (Acute) Dyspnea (Acute) Debility (Acute) Generalized weakness (Acute) - Physical Exam Vitals/I&O's: Vital Signs Temp Pulse Resp BP Pulse Ox 97.5 F L 62 14 135/75 H 94 07/29/20 08:05 07/29/20 08:05 07/29/20 08:05 07/29/20 08:05 07/29/20 08:20 Oxygen Flow Rate (L/min) 2 Oxygen Delivery Method Nasal Cannula Weight: 162 lb 12.947 oz Body Mass Index (BMI) 32.9 Finger Stick Blood Glucose 132 Intake and Output for Last 24 Hours 07/27/20 07/28/20 07/29/20 23:59 23:59 23:59 Intake Total 2705 / 2705 Output Total 300 / 300 Balance 2405 / 2405 General: Alert, Cooperative HEENT: Atraumatic Lungs: Normal air movement Cardiovascular: Regular rate, Regular Rhythm Abdomen: Soft, Non-Distended, Tender - Tender in the epigastric area Musculoskeletal: No Muscle Wasting Neurological: Cranial nerves II-XII grossly intact Psych/Mental Status: Normal Affect Microbiology Past 72 Hours 07/29/20 09:50 Interface Orders SARS-CoV-2 Antigen (Rapid) - Final Laboratory Results 07/28/20 22:00: WBC 11.4 H, RBC 3.63 L, Hgb 11.5 L, Hct 36.3 L, MCV 100.0 H, MCH 31.7, MCHC 31.7 L, RDW Std Deviation 54.0 H, RDW Coeff of Cricket 14.7 H, Plt Count 273, MPV 11.9, Immature Gran % (Auto) 0.500, Neut % (Auto) 75.2 H, Lymph % (Auto) 17.3 L, [place] % (Auto) 5.6, Eos % (Auto) 1.1, Baso % (Auto) 0.3, Absolute Neuts (auto) 8.6 H, Absolute Lymphs (auto) 1.97, Nucleated RBC % 0 07/28/20 22:00: Sodium 143, Potassium 4.1, Chloride 108 H, Carbon Dioxide 31.0, Anion Gap 4 L, BUN 17, Creatinine 1.33 H, Estim Creat Clear Calc 40.14, Est GFR (MDRD) Af Amer 49 L, Est GFR (MDRD) Non-Af 41 L, BUN/Creatinine Ratio 12.8, Glucose 147 H, Calcium 10.0, Total Bilirubin 0.40, Direct Bilirubin 0.17, AST 23, ALT 22, Alkaline Phosphatase 147 H, Total Protein 5.8 L, Albumin 2.9 L, Globulin 2.9, Lipase 23034 H 07/28/20 22:00: Magnesium 2.0, Lipase 85477 H 07/29/20 08:35: WBC 11.1 H, RBC 3.70 L, Hgb 11.5 L, Hct 38.2, MCV 103.2 H, MCH 31.1, MCHC 30.1 L D, RDW Std Deviation 56.9 H, RDW Coeff of Cricket 15.0 H, Plt Count 243, MPV 11.6, Immature Gran % (Auto) 0.400, Neut % (Auto) 79.6 H, Lymph % (Auto) 10.7 L, [place] % (Auto) 7.6, Eos % (Auto) 1.4, Baso % (Auto) 0.3, Absolute Neuts (auto) 8.8 H, Absolute Lymphs (auto) 1.18, Nucleated RBC % 0 07/29/20 08:35: Sodium 145, Potassium 4.1, Chloride 113 H, Carbon Dioxide 29.0, Anion Gap 3 L, BUN 15, Creatinine 1.15 H, Estim Creat Clear Calc 43.97, Est GFR (MDRD) Af Amer 58 L, Est GFR (MDRD) Non-Af 48 L, BUN/Creatinine Ratio 13.0, Glucose 87, Calcium 9.5, Total Bilirubin 0.60, AST 22, ALT 20, Alkaline Phosphatase 146 H, Total Protein 5.3 L, Albumin 2.6 L, Globulin 2.7, Albumin/Globulin Ratio 1.0, Triglycerides 103, Cholesterol 118, LDL Cholesterol 53, VLDL Cholesterol 21, HDL Cholesterol 44 07/29/20 08:35: Hemoglobin A1c 5.7 H Clinical Impression(s) from Imaging Studies Acute Abdomen Series 07/28/20 22:30 IMPRESSION: 1. No acute cardiopulmonary abnormality is radiographically apparent. 2. No acute abdominal abnormality is radiographically apparent. at 2307 Reported and signed by: Carolann Peña MD Electronically Signed: Carolann Peña MD at 23:07 EST Tel , Service support , Current Medications Acetaminophen (Acetaminophen 325 Mg Tablet) 650 mg PO Q6H PRN PRN PRN Reason: Pain Score 1-10/Temp > 100.7 F Al Hydroxide/Mg Hydroxide (Mag Hydrox/Al Hydrox/Simeth 30 Ml Udc) 30 ml PO Q6H PRN PRN PRN Reason: Gastric Burning Albuterol Sulfate (Albuterol 2.5 Mg/3 Ml Vial.Neb.) 2.5 mg INHALATION Q2H PRN PRN PRN Reason: Dyspnea, wheezing Allopurinol (Allopurinol 300 Mg Tablet) 300 mg PO DAILY [facility] Last Admin: 07/29/20 10:27 Dose: 300 mg Documented by: Apixaban (Apixaban 2.5 Mg Tablet) 2.5 mg PO BID [facility] Last Admin: 07/29/20 10:26 Dose: 2.5 mg Documented by: Atorvastatin Calcium (Atorvastatin Calcium 10 Mg Tablet) 10 mg PO QHS [facility] Calamine/Phenol (Menthol/Lanolin/Calamine/Znox 113 Gm Tube) 1 applic TOPICAL BID [facility]; Protocol Last Admin: 07/29/20 08:21 Dose: 1 applicatio Documented by: Carvedilol (Carvedilol 3.125 Mg Tablet) 3.125 mg PO BID [facility] Last Admin: 07/29/20 10:26 Dose: 3.125 mg Documented by: Colchicine (Colchicine 0.6 Mg Tablet) 0.6 mg PO DAILY [facility] Last Admin: 07/29/20 10:26 Dose: 0.6 mg Documented by: Diltiazem HCl (Diltiazem Cd 120 Mg Capsule) 120 mg PO DAILY [facility] Last Admin: 07/29/20 10:26 Dose: 120 mg Documented by: Guaifenesin (Guaifenesin 10 Ml Udc (200mg/10ml)) 20 ml PO Q4H PRN PRN PRN Reason: COUGH Hydralazine HCl (Hydralazine 20 Mg/Ml Vial) 10 mg IV Q4H PRN PRN PRN Reason: SBP > 160 Sodium Chloride () 1,000 mls @ 150 mls/hr IV .Q6H40M [facility] Last Infusion: 07/29/20 12:23 Dose: 150 mls/hr Documented by: Pantoprazole Sodium 40 mg/ (Sodium Chloride) 110 mls @ 330 mls/hr IV Q12 [facility] Last Infusion: 07/29/20 12:24 Dose: Infused Documented by: Levothyroxine Sodium (Levothyroxine 75 Mcg Tablet) 75 mcg PO [id number]@0600 [facility] Last Admin: 07/29/20 06:00 Dose: 75 mcg Documented by: Magnesium Hydroxide (Magnesium Hydroxide 30 Ml Udc) 30 ml PO DAILY PRN PRN PRN Reason: Constipation Melatonin (Melatonin 3 Mg Tablet) 3 mg PO QHS PRN PRN PRN Reason: INSOMNIA Morphine Sulfate (Morphine 2 Mg/Ml Syringe) 2 mg IV Q3H PRN PRN PRN Reason: Pain Score 6-10 Nitroglycerin (Nitroglycerin (Inpatient Use) 0.4 Mg Tab.Subl) 0.4 mg SUBLINGUAL Q5M PRN PRN Reason: CARDIAC/CHEST PAIN Nystatin (Nystatin Powder 15gm Bottle) 1 applic TOPICAL BID [facility]; Protocol Last Admin: 07/29/20 10:27 Dose: 1 applicatio Documented by: Ondansetron HCl (Ondansetron 4 Mg/2 Ml Vial) 4 mg IV Q8H PRN PRN PRN Reason: NAUSEA/VOMITING Oxycodone HCl (Oxycodone 5 Mg Tablet) 5 mg PO Q4H PRN PRN PRN Reason: Pain Score 4-5 Last Admin: 07/29/20 01:09 Dose: 5 mg Documented by: Paroxetine HCl (Paroxetine 10 Mg Tablet) 10 mg PO QHS [facility] Prochlorperazine Edisylate (Prochlorperazine 10 Mg/2 Ml Vial) 5 mg IV Q4H PRN PRN PRN Reason: Breakthrough nausea/vomiting Psyllium Hydrophilic Mucilloid (Psyllium 1 Packet) 1 packet PO DAILY PRN PRN PRN Reason: Constipation Senna/Docusate Sodium (Senna/Docusate Sodium 1 Tablet) 2 tablet PO BID PRN PRN PRN Reason: Constipation Sodium Chloride (0.9% Saline Lock 10 Ml Syringe) 10 - 40 ml IV UD PRN PRN Reason: SALINE FLUSH Sodium Chloride (Sodium Chloride 0.65% 1 [place].Btl) 1 spray NASAL Q2H PRN PRN Reason: NASAL CONGESTION Throat Lozenges (Benzocaine/Menthol 1 Lozenge) 1 lozenge MUCOUS MEM Q2H PRN PRN PRN Reason: SORE THROAT Assessment/Plan All Active Problems (Last Reviewed 03/19/20 @ 14:[address] Naina Llamas, ) Acute pancreatitis (Acute) Nausea and vomiting (Acute) Sinus tachycardia seen on monitor tech (Acute) COVID-19 (Resolved) Hyperglycemia (Acute) Upper GI bleeding (Acute) Acute blood loss anemia (Acute) Atrial fibrillation with rapid ventricular response (Acute) Dyspnea (Acute) Back pain (Acute) Debility (Acute) Shortness of breath (Acute) Left ankle sprain (Acute) Multiple falls (Acute) JESSICA (acute kidney injury) (Acute) Generalized weakness (Acute) UTI (urinary tract infection) (Acute) Bradycardia (Acute) Confusion (Resolved) Esophageal stricture (Resolved) Expressive aphasia (Resolved) Hypoxia (Resolved) 80-year-old female with acute pancreatitis 1. Patient has a markedly elevated lipase. The patient has had cholecystectomy about 9 years in the past. Her LFTs are normal. I do recommend the patient have a CT scan of the abdomen and pelvis with IV contrast once her creatinine returns to normal to ensure that there is not a pancreatic malignancy causing this. At this time there is not a surgical indication for an upper GI scope as the patient recently had EGD recently. Gilson Malhotra MD Pager: [facility] [address] [place] [address], [address] [place] [address] Office:
--- NOTE | 2020-07-29 15:41 | PN_ITS ---
Patient Problems: Active and Suspected Problems (Last Reviewed 03/19/20 @ 14:[address] Naina Llamas, DO) Acute pancreatitis (Acute) Nausea and vomiting (Acute) Sinus tachycardia seen on case monitor (Acute) Hyperglycemia (Acute) Upper GI bleeding (Acute) Dyspnea (Acute) Debility (Acute) Generalized weakness (Acute) Subjective: Still with significant abdominal pain. No issues overnight Vitals/I&O's: Vital Signs Temp Pulse Resp BP Pulse Ox 99.1 F 83 18 104/58 L 93 07/29/20 14:48 07/29/20 14:48 07/29/20 14:48 07/29/20 14:48 07/29/20 14:48 Oxygen Flow Rate (L/min) 2 Oxygen Delivery Method Room Air Weight: 162 lb 12.947 oz Body Mass Index (BMI) 32.9 Finger Stick Blood Glucose 132 Intake and Output for Last 24 Hours 07/27/20 07/28/20 07/29/20 23:59 23:59 23:59 Intake Total 3072.5 / 3072.5 Output Total 300 / 300 Balance 2772.5 / 2772.5 General: Alert, Oriented x3, Cooperative, No apparent distress HEENT: Atraumatic, PERRLA, EOMI, Normocephalic Oral: Moist Mucosa Neck: Supple, No JVD Lungs: Normal air movement, No rhonchi, No wheeze, No rales, Diminished Cardiovascular: Regular rate, Regular Rhythm, Normal S1, Normal S2, No murmurs Abdomen: Soft, Non-Distended, No Hepato-splenomegaly, Tender - In the epigastric region Extremities: No edema, Capillary Refill Less than 3 Seconds Skin: No rashes, No breakdown Neurological: Neuro grossly intact, Sensory exam intact to light touch and pain Psych/Mental Status: Normal Affect, Appropriate Microbiology Past 72 Hours 07/29/20 09:50 Interface Orders SARS-CoV-2 Antigen (Rapid) - Final Laboratory Results 07/28/20 22:00: WBC 11.4 H, RBC 3.63 L, Hgb 11.5 L, Hct 36.3 L, MCV 100.0 H, MCH 31.7, MCHC 31.7 L, RDW Std Deviation 54.0 H, RDW Coeff of Cricket 14.7 H, Plt Count 273, MPV 11.9, Immature Gran % (Auto) 0.500, Neut % (Auto) 75.2 H, Lymph % (Auto) 17.3 L, [place] % (Auto) 5.6, Eos % (Auto) 1.1, Baso % (Auto) 0.3, Absolute Neuts (auto) 8.6 H, Absolute Lymphs (auto) 1.97, Nucleated RBC % 0 07/28/20 22:00: Sodium 143, Potassium 4.1, Chloride 108 H, Carbon Dioxide 31.0, Anion Gap 4 L, BUN 17, Creatinine 1.33 H, Estim Creat Clear Calc 40.14, Est GFR (MDRD) Af Amer 49 L, Est GFR (MDRD) Non-Af 41 L, BUN/Creatinine Ratio 12.8, Glucose 147 H, Calcium 10.0, Total Bilirubin 0.40, Direct Bilirubin 0.17, AST 23, ALT 22, Alkaline Phosphatase 147 H, Total Protein 5.8 L, Albumin 2.9 L, Globulin 2.9, Lipase 42724 H 07/28/20 22:00: Magnesium 2.0, Lipase 49760 H 07/29/20 08:35: WBC 11.1 H, RBC 3.70 L, Hgb 11.5 L, Hct 38.2, MCV 103.2 H, MCH 31.1, MCHC 30.1 L D, RDW Std Deviation 56.9 H, RDW Coeff of Cricket 15.0 H, Plt Cou nt 243, MPV 11.6, Immature Gran % (Auto) 0.400, Neut % (Auto) 79.6 H, Lymph % (Auto) 10.7 L, [place] % (Auto) 7.6, Eos % (Auto) 1.4, Baso % (Auto) 0.3, Absolute Neuts (auto) 8.8 H, Absolute Lymphs (auto) 1.18, Nucleated RBC % 0 07/29/20 08:35: Sodium 145, Potassium 4.1, Chloride 113 H, Carbon Dioxide 29.0, Anion Gap 3 L, BUN 15, Creatinine 1.15 H, Estim Creat Clear Calc 43.97, Est GFR (MDRD) Af Amer 58 L, Est GFR (MDRD) Non-Af 48 L, BUN/Creatinine Ratio 13.0, Glucose 87, Calcium 9.5, Total Bilirubin 0.60, AST 22, ALT 20, Alkaline Phosphatase 146 H, Total Protein 5.3 L, Albumin 2.6 L, Globulin 2.7, Albumin/Globulin Ratio 1.0, Triglycerides 103, Cholesterol 118, LDL Cholesterol 53, VLDL Cholesterol 21, HDL Cholesterol 44 07/29/20 08:35: Hemoglobin A1c 5.7 H Current Medications Acetaminophen (Acetaminophen 325 Mg Tablet) 650 mg PO Q6H PRN PRN PRN Reason: Pain Score 1-10/Temp > 100.7 F Al Hydroxide/Mg Hydroxide (Mag Hydrox/Al Hydrox/Simeth 30 Ml Udc) 30 ml PO Q6H PRN PRN PRN Reason: Gastric Burning Albuterol Sulfate (Albuterol 2.5 Mg/3 Ml Vial.Neb.) 2.5 mg INHALATION Q2H PRN PRN PRN Reason: Dyspnea, wheezing Allopurinol (Allopurinol 300 Mg Tablet) 300 mg PO DAILY [facility] Last Admin: 07/29/20 10:27 Dose: 300 mg Documented by: Apixaban (Apixaban 2.5 Mg Tablet) 2.5 mg PO BID [facility] Last Admin: 07/29/20 10:26 Dose: 2.5 mg Documented by: Atorvastatin Calcium (Atorvastatin Calcium 10 Mg Tablet) 10 mg PO QHS [facility] Calamine/Phenol (Menthol/Lanolin/Calamine/Znox 113 Gm Tube) 1 applic TOPICAL BID [facility]; Protocol Last Admin: 07/29/20 08:21 Dose: 1 applicatio Documented by: Carvedilol (Carvedilol 3.125 Mg Tablet) 3.125 mg PO BID [facility] Last Admin: 07/29/20 10:26 Dose: 3.125 mg Documented by: Colchicine (Colchicine 0.6 Mg Tablet) 0.6 mg PO DAILY [facility] Last Admin: 07/29/20 10:26 Dose: 0.6 mg Documented by: Diltiazem HCl (Diltiazem Cd 120 Mg Capsule) 120 mg PO DAILY [facility] Last Admin: 07/29/20 10:26 Dose: 120 mg Documented by: Guaifenesin (Guaifenesin 10 Ml Udc (200mg/10ml)) 20 ml PO Q4H PRN PRN PRN Reason: COUGH Hydralazine HCl (Hydralazine 20 Mg/Ml Vial) 10 mg IV Q4H PRN PRN PRN Reason: SBP > 160 Sodium Chloride () 1,000 mls @ 150 mls/hr IV .Q6H40M [facility] Last Admin: 07/29/20 14:50 Dose: 150 mls/hr Documented by: Pantoprazole Sodium 40 mg/ (Sodium Chloride) 110 mls @ 330 mls/hr IV Q12 [facility] Last Infusion: 07/29/20 12:24 Dose: Infused Documented by: Levothyroxine Sodium (Levothyroxine 75 Mcg Tablet) 75 mcg PO [id number]@0600 [facility] Last Admin: 07/29/20 06:00 Dose: 75 mcg Documented by: Magnesium Hydroxide (Magnesium Hydroxide 30 Ml Udc) 30 ml PO DAILY PRN PRN PRN Reason: Constipation Melatonin (Melatonin 3 Mg Tablet) 3 mg PO QHS PRN PRN PRN Reason: INSOMNIA Morphine Sulfate (Morphine 2 Mg/Ml Syringe) 2 mg IV Q3H PRN PRN PRN Reason: Pain Score 6-10 Nitroglycerin (Nitroglycerin (Inpatient Use) 0.4 Mg Tab.Subl) 0.4 mg SUBLINGUAL Q5M PRN PRN Reason: CARDIAC/CHEST PAIN Nystatin (Nystatin Powder 15gm Bottle) 1 applic TOPICAL BID [facility]; Protocol Last Admin: 07/29/20 10:27 Dose: 1 applicatio Documented by: Ondansetron HCl (Ondansetron 4 Mg/2 Ml Vial) 4 mg IV Q8H PRN PRN PRN Reason: NAUSEA/VOMITING Oxycodone HCl (Oxycodone 5 Mg Tablet) 5 mg PO Q4H PRN PRN PRN Reason: Pain Score 4-5 Last Admin: 07/29/20 01:09 Dose: 5 mg Documented by: Paroxetine HCl (Paroxetine 10 Mg Tablet) 10 mg PO QHS [facility] Prochlorperazine Edisylate (Prochlorperazine 10 Mg/2 Ml Vial) 5 mg IV Q4H PRN PRN PRN Reason: Breakthrough nausea/vomiting Psyllium Hydrophilic Mucilloid (Psyllium 1 Packet) 1 packet PO DAILY PRN PRN PRN Reason: Constipation Senna/Docusate Sodium (Senna/Docusate Sodium 1 Tablet) 2 tablet PO BID PRN PRN PRN Reason: Constipation Sodium Chloride (0.9% Saline Lock 10 Ml Syringe) 10 - 40 ml IV UD PRN PRN Reason: SALINE FLUSH Sodium Chloride (Sodium Chloride 0.65% 1 [place].Btl) 1 spray NASAL Q2H PRN PRN Reason: NASAL CONGESTION Throat Lozenges (Benzocaine/Menthol 1 Lozenge) 1 lozenge MUCOUS MEM Q2H PRN PRN PRN Reason: SORE THROAT STROKE Vital Signs/Narrative: Vital Signs Temp Pulse Resp BP Pulse Ox 07/29/20 14:48 99.1 F 83 18 104/58 L 93 Medical Necessity - Tobacco Use Smoking Status: Never smoker Assessment/Plan All Active Problems (Last Reviewed 03/19/20 @ 14:[address] Naina Llamas, DO) Acute pancreatitis (Acute) Nausea and vomiting (Acute) Sinus tachycardia seen on case monitor (Acute) COVID-19 (Resolved) Hyperglycemia (Acute) Upper GI bleeding (Acute) Acute blood loss anemia (Acute) Atrial fibrillation with rapid ventricular response (Acute) Dyspnea (Acute) Back pain (Acute) Debility (Acute) Shortness of breath (Acute) Left ankle sprain (Acute) Multiple falls (Acute) JESSICA (acute kidney injury) (Acute) Generalized weakness (Acute) UTI (urinary tract infection) (Acute) Bradycardia (Acute) Confusion (Resolved) Esophageal stricture (Resolved) Expressive aphasia (Resolved) Hypoxia (Resolved) 1. Acute pancreatitis -Etiology unsure at the moment. LFTs are not elevated to indicate a duct stone -We will repeat a lipase in the morning per surgery's recommendation, and will obtain a CT scan of her abdomen pelvis with contrast if her creatinine is improved. -Continue with IV fluids at 150, can likely decrease tomorrow -Given her abdominal pain will not advance her diet at this time 2. Chronic diastolic CHF/paroxysmal A. fib/HTN/HLD/history of CVA -Blood pressure is stable -We will continue with her home blood pressure medications as well as her Eliquis -Hold Lasix while giving IV fluids, will likely restart in the morning 3. CKD 3 -Creatinine is at baseline 4. Hypothyroidism -Stable -Continue with Synthroid 5. Anxiety/depression -Stable -Continue with Paxil -Possibility of dementia though not on any treatment 6. Gout -Stable -Continue with allopurinol and colchicine 7. RODOLFO -Stable -Continue with CPAP at night 8. GERD -Stable -Continue with PPI DVT: Eliquis Inpatient E&M: 37151 Subs Hosp L2
[2020-07-29] MEDS: Acetaminophen 325 MG Tablet 650 MG PO (19:38)
[2020-07-29] MEDS: 0.9% Normal Saline 1,000 ML 100 ML IV (21:53)
[2020-07-29] MEDS: Atorvastatin Calcium 10 MG Tablet PO (22:07)
[2020-07-29] MEDS: PARoxetine 10 MG Tablet PO (22:07)
[2020-07-30 02:24] VITALS: BP 112/57; PULSE 96; RESP 18; TEMP 36.6; O2SAT 97
[2020-07-30] MEDS: Levothyroxine 75 MCG Tablet PO (05:28)
[2020-07-30 06:42] LABS: Anion Gap 2 (5-15); BUN 17 mg/dL (7-18); BUN/Creat Ratio 16.3 RATIO (10-20); Calcium,Total 9.8 mg/dL (8.5-10.1); Chloride 117 mmol/L (98-107); Creatinine, Serum 1.04 mg/dL (0.55-1.02); EST Glomerular Filtration Rate 54 mL/min (>60); Est Glom Filt Rate - Afr Amer 65 mL/min (>60); Estimated Creatinine Clearance 50.76 ml/min; Glucose 73 mg/dL (74-106); Lipase 573 U/L (73-393); Potassium 4.6 mmol/L (3.5-5.1); Sodium Level 146 mmol/L (136-145)
[2020-07-30] MEDS: 0.9% Normal Saline 1,000 ML 100 ML IV ×2 (07:19→18:46)
--- NOTE | 2020-07-30 07:34 | CT_ITS ---
STUDY: CT ABDOMEN AND PELVIS WITH CONTRAST REASON FOR EXAM: Female, 80 years old. ABD PAIN WITH ELEV.. LIPASE, N/V, ACUTE PANCREATITIS, MOOK G-ESOPHAGEAL DILATATION, HERNIA REPAIR, THR, TORITO, HX-TAA, CHF, CKD STAGE 3, HTN RADIATION DOSAGE (If Supplied By Facility): CTDIvol = ( 22.15 ) mGy, DLP = ( 1290.93 ) mGycm TECHNIQUE: Transaxial images were obtained from the dome of the diaphragm to the symphysis pubis without oral contrast. Oral and amp; IV Gastrografin and amp; 100mL Isovue-300 was administered. Sagittal and coronal images were reconstructed. Individualized dose optimization techniques were used for this CT. COMPARISON: 03/19/2020 FINDINGS: The visualized lung bases demonstrate a small left effusion and bibasilar consolidation/atelectasis. The visualized portions of the heart demonstrate coronary artery and valvular calcifications. Normal liver. There is non-visualization of the gallbladder, which may be secondary to either contraction or a prior cholecystectomy. Common bile duct is dilated measuring up to 12 mm. Normal spleen. There is diffuse atrophy of the pancreas. Normal bilateral adrenal glands. There is moderate cortical atrophy of the right kidney, consistent with chronic medical renal disease. There is moderate cortical atrophy of the left kidney, consistent with chronic medical renal disease. Prominent wall thickening at the stomach. Normal small intestine. Wall thickening is noted at the cecum. Diverticulosis There are surgical clips in the region of the appendix consistent with a prior appendectomy. There is diffuse atherosclerotic calcification and tortuosity of the abdominal aorta, without a demonstrated aneurysm. Normal inferior vena cava. Normal retroperitoneum. Decompressed urinary bladder. Limited evaluation of the pelvis due to streak artifact from right hip arthroplasty hardware. Partially visualized calcified uterus. Trace dependent free fluid. Normal abdominal wall. Significant degenerative disease and scoliosis of the visualized osseous structures. CT/Abdomen/Pelvis WITH Contrast IMPRESSION: Nonspecific gastric and cecal wall thickening may indicate enteritis/colitis. Prominent common bile duct without definite stone or obstructing lesion identified. Consider MRCP for further evaluation. Small left effusion and bibasilar consolidation/atelectasis. Electronically Signed: Nicola Bentley, at 12:40 EST Tel , Service support ,
[2020-07-30 08:25] VITALS: BP 121/82; PULSE 101; RESP 18; TEMP 36.1; O2SAT 98
--- NOTE | 2020-07-30 08:27 | PCM.PN.SRG ---
Patient Problems: Active and Suspected Problems (Last Reviewed 03/19/20 @ 14:[address] Naina Llamas, DO) Acute pancreatitis (Acute) Nausea and vomiting (Acute) Sinus tachycardia seen on night monitor (Acute) Hyperglycemia (Acute) Upper GI bleeding (Acute) Dyspnea (Acute) Debility (Acute) Generalized weakness (Acute) Subjective: Patient's pain has significantly improved. Objective: Abdomen is soft no rebound guarding or peritoneal signs are identified - Physical Exam Vitals/I&O's: Vital Signs Temp Pulse Resp BP Pulse Ox 97.8 F 96 18 112/57 L 97 07/30/20 02:24 07/30/20 02:24 07/30/20 02:24 07/30/20 02:24 07/30/20 02:24 Oxygen Flow Rate (L/min) 2 Oxygen Delivery Method Nasal Cannula Weight: 169 lb 15.622 oz Body Mass Index (BMI) 32.9 Finger Stick Blood Glucose 132 Intake and Output for Last 24 Hours 07/28/20 07/29/20 07/30/20 23:59 23:59 23:59 Intake Total 3995.00 / 3995.00 881.67 / 881.67 Output Total 450 / 450 150 / 150 Balance 3545.00 / 3545.00 731.67 / 731.67 Microbiology Past 72 Hours 07/29/20 09:50 Interface Orders SARS-CoV-2 Antigen (Rapid) - Final Laboratory Results 07/29/20 08:35: WBC 11.1 H, RBC 3.70 L, Hgb 11.5 L, Hct 38.2, MCV 103.2 H, MCH 31.1, MCHC 30.1 L D, RDW Std Deviation 56.9 H, RDW Coeff of Cricket 15.0 H, Plt Count 243, MPV 11.6, Immature Gran % (Auto) 0.400, Neut % (Auto) 79.6 H, Lymph % (Auto) 10.7 L, [place] % (Auto) 7.6, Eos % (Auto) 1.4, Baso % (Auto) 0.3, Absolute Neuts (auto) 8.8 H, Absolute Lymphs (auto) 1.18, Nucleated RBC % 0 07/29/20 08:35: Sodium 145, Potassium 4.1, Chloride 113 H, Carbon Dioxide 29.0, Anion Gap 3 L, BUN 15, Creatinine 1.15 H, Estim Creat Clear Calc 43.97, Est GFR (MDRD) Af Amer 58 L, Est GFR (MDRD) Non-Af 48 L, BUN/Creatinine Ratio 13.0, Glucose 87, Calcium 9.5, Total Bilirubin 0.60, AST 22, ALT 20, Alkaline Phosphatase 146 H, Total Protein 5.3 L, Albumin 2.6 L, Globulin 2.7, Albumin/Globulin Ratio 1.0, Triglycerides 103, Cholesterol 118, LDL Cholesterol 53, VLDL Cholesterol 21, HDL Cholesterol 44 07/29/20 08:35: Hemoglobin A1c 5.7 H 07/30/20 05:16: Sodium 146 H, Potassium 4.6, Chloride 117 H, Carbon Dioxide 27.0, Anion Gap 2 L, BUN 17, Creatinine 1.04 H, Estim Creat Clear Calc 50.76, Est GFR (MDRD) Af Amer 65, Est GFR (MDRD) Non-Af 54 L, BUN/Creatinine Ratio 16.3, Glucose 73 L, Calcium 9.8, Lipase 573 H Current Medications Acetaminophen (Acetaminophen 325 Mg Tablet) 650 mg PO Q6H PRN PRN PRN Reason: Pain Score 1-10/Temp > 100.7 F Last Admin: 07/29/20 19:38 Dose: 650 mg Documented by: Al Hydroxide/Mg Hydroxide (Mag Hydrox/Al Hydrox/Simeth 30 Ml Udc) 30 ml PO Q6H PRN PRN PRN Reason: Gastric Burning Albuterol Sulfate (Albuterol 2.5 Mg/3 Ml Vial.Neb.) 2.5 mg INHALATION Q2H PRN PRN PRN Reason: Dyspnea, wheezing Allopurinol (Allopurinol 300 Mg Tablet) 300 mg PO DAILY [facility] Last Admin: 07/29/20 10:27 Dose: 300 mg Documented by: Apixaban (Apixaban 2.5 Mg Tablet) 2.5 mg PO BID [facility] Last Admin: 07/29/20 22:08 Dose: 2.5 mg Documented by: Atorvastatin Calcium (Atorvastatin Calcium 10 Mg Tablet) 10 mg PO QHS [facility] Last Admin: 07/29/20 22:07 Dose: 10 mg Documented by: Calamine/Phenol (Menthol/Lanolin/Calamine/Znox 113 Gm Tube) 1 applic TOPICAL BID [facility]; Protocol Last Admin: 07/29/20 22:05 Dose: 1 applicatio Documented by: Carvedilol (Carvedilol 3.125 Mg Tablet) 3.125 mg PO BID [facility] Last Admin: 07/29/20 22:08 Dose: 3.125 mg Documented by: Colchicine (Colchicine 0.6 Mg Tablet) 0.6 mg PO DAILY [facility] Last Admin: 07/29/20 10:26 Dose: 0.6 mg Documented by: Diltiazem HCl (Diltiazem Cd 120 Mg Capsule) 120 mg PO DAILY [facility] Last Admin: 07/29/20 10:26 Dose: 120 mg Documented by: Guaifenesin (Guaifenesin 10 Ml Udc (200mg/10ml)) 20 ml PO Q4H PRN PRN PRN Reason: COUGH Hydralazine HCl (Hydralazine 20 Mg/Ml Vial) 10 mg IV Q4H PRN PRN PRN Reason: SBP > 160 Sodium Chloride () 1,000 mls @ 100 mls/hr IV .Q10H [facility] Last Admin: 07/30/20 07:19 Dose: 100 mls/hr Documented by: Pantoprazole Sodium 40 mg/ (Sodium Chloride) 110 mls @ 330 mls/hr IV Q12 [facility] Last Infusion: 07/29/20 22:30 Dose: Infused Documented by: Levothyroxine Sodium (Levothyroxine 75 Mcg Tablet) 75 mcg PO MoTuWeThFrSa@0600 [facility] Last Admin: 07/30/20 05:28 Dose: 75 mcg Documented by: Magnesium Hydroxide (Magnesium Hydroxide 30 Ml Udc) 30 ml PO DAILY PRN PRN PRN Reason: Constipation Melatonin (Melatonin 3 Mg Tablet) 3 mg PO QHS PRN PRN PRN Reason: INSOMNIA Morphine Sulfate (Morphine 2 Mg/Ml Syringe) 2 mg IV Q3H PRN PRN PRN Reason: Pain Score 6-10 Nitroglycerin (Nitroglycerin (Inpatient Use) 0.4 Mg Tab.Subl) 0.4 mg SUBLINGUAL Q5M PRN PRN Reason: CARDIAC/CHEST PAIN Nystatin (Nystatin Powder 15gm Bottle) 1 applic TOPICAL BID [facility]; Protocol Last Admin: 07/29/20 22:11 Dose: 1 applicatio Documented by: Ondansetron HCl (Ondansetron 4 Mg/2 Ml Vial) 4 mg IV Q8H PRN PRN PRN Reason: NAUSEA/VOMITING Oxycodone HCl (Oxycodone 5 Mg Tablet) 5 mg PO Q4H PRN PRN PRN Reason: Pain Score 4-5 Last Admin: 07/29/20 01:09 Dose: 5 mg Documented by: Paroxetine HCl (Paroxetine 10 Mg Tablet) 10 mg PO QHS [facility] Last Admin: 07/29/20 22:07 Dose: 10 mg Documented by: Prochlorperazine Edisylate (Prochlorperazine 10 Mg/2 Ml Vial) 5 mg IV Q4H PRN PRN PRN Reason: Breakthrough nausea/vomiting Psyllium Hydrophilic Mucilloid (Psyllium 1 Packet) 1 packet PO DAILY PRN PRN PRN Reason: Constipation Senna/Docusate Sodium (Senna/Docusate Sodium 1 Tablet) 2 tablet PO BID PRN PRN PRN Reason: Constipation Sodium Chloride (0.9% Saline Lock 10 Ml Syringe) 10 - 40 ml IV UD PRN PRN Reason: SALINE FLUSH Sodium Chloride (Sodium Chloride 0.65% 1 [place].Btl) 1 spray NASAL Q2H PRN PRN Reason: NASAL CONGESTION Throat Lozenges (Benzocaine/Menthol 1 Lozenge) 1 lozenge MUCOUS MEM Q2H PRN PRN PRN Reason: SORE THROAT Medical Necessity - Tobacco Use Smoking Status: Never smoker Assessment/Plan All Active Problems (Last Reviewed 03/19/20 @ 14:[address] Naina Llamas, DO) Acute pancreatitis (Acute) Nausea and vomiting (Acute) Sinus tachycardia seen on night monitor (Acute) COVID-19 (Resolved) Hyperglycemia (Acute) Upper GI bleeding (Acute) Acute blood loss anemia (Acute) Atrial fibrillation with rapid ventricular response (Acute) Dyspnea (Acute) Back pain (Acute) Debility (Acute) Shortness of breath (Acute) Left ankle sprain (Acute) Multiple falls (Acute) JESSICA (acute kidney injury) (Acute) Generalized weakness (Acute) UTI (urinary tract infection) (Acute) Bradycardia (Acute) Confusion (Resolved) Esophageal stricture (Resolved) Expressive aphasia (Resolved) Hypoxia (Resolved) Resolving acute pancreatitis. Would advance diet slowly. Inpatient E&M: 18645 Subs Hosp L2
--- NOTE | 2020-07-30 11:31 | PN_ITS ---
Patient Problems: Active and Suspected Problems (Last Reviewed 03/19/20 @ 14:[address] Naina Llamas, DO) Acute pancreatitis (Acute) Nausea and vomiting (Acute) Sinus tachycardia seen on equipment monitor phototypesetting (Acute) Hyperglycemia (Acute) Upper GI bleeding (Acute) Dyspnea (Acute) Debility (Acute) Generalized weakness (Acute) Subjective: Feels better, pain is improved. Can advance diet slowly. Vitals/I&O's: Vital Signs Temp Pulse Resp BP Pulse Ox 97.0 F L 101 H 18 121/82 H 98 07/30/20 08:25 07/30/20 08:25 07/30/20 08:25 07/30/20 08:25 07/30/20 08:25 Oxygen Flow Rate (L/min) 2 Oxygen Delivery Method Nasal Cannula Weight: 169 lb 15.622 oz Body Mass Index (BMI) 32.9 Finger Stick Blood Glucose 132 Intake and Output for Last 24 Hours 07/28/20 07/29/20 07/30/20 23:59 23:59 23:59 Intake Total 3995.00 / 3995.00 881.67 / 881.67 Output Total 450 / 450 150 / 150 Balance 3545.00 / 3545.00 731.67 / 731.67 General: Alert, Oriented x3, Cooperative, No apparent distress HEENT: Atraumatic, PERRLA, EOMI, Normocephalic Oral: Moist Mucosa Neck: Supple, No JVD Lungs: Normal air movement, No rhonchi, No wheeze, No rales, Diminished Cardiovascular: Regular rate, Regular Rhythm, Normal S1, Normal S2, No murmurs Abdomen: Soft, Non-Distended, No Hepato-splenomegaly, mildly tender - In the epigastric region Extremities: No edema, Capillary Refill Less than 3 Seconds Skin: No rashes, No breakdown Neurological: Neuro grossly intact, Sensory exam intact to light touch and pain Psych/Mental Status: Normal Affect, Appropriate Microbiology Past 72 Hours 07/29/20 09:50 Interface Orders SARS-CoV-2 Antigen (Rapid) - Final Laboratory Results 07/30/20 05:16: Sodium 146 H, Potassium 4.6, Chloride 117 H, Carbon Dioxide 27.0, Anion Gap 2 L, BUN 17, Creatinine 1.04 H, Estim Creat Clear Calc 50.76, Est GFR (MDRD) Af Amer 65, Est GFR (MDRD) Non-Af 54 L, BUN/Creatinine Ratio 16.3, Glucose 73 L, Calcium 9.8, Lipase 573 H Current Medications Acetaminophen (Acetaminophen 325 Mg Tablet) 650 mg PO Q6H PRN PRN PRN Reason: Pain Score 1-10/Temp > 100.7 F Last Admin: 07/29/20 19:38 Dose: 650 mg Documented by: Al Hydroxide/Mg Hydroxide (Mag Hydrox/Al Hydrox/Simeth 30 Ml Udc) 30 ml PO Q6H PRN PRN PRN Reason: Gastric Burning Albuterol Sulfate (Albuterol 2.5 Mg/3 Ml Vial.Neb.) 2.5 mg INHALATION Q2H PRN PRN PRN Reason: Dyspnea, wheezing Allopurinol (Allopurinol 300 Mg Tablet) 300 mg PO DAILY [facility] Last Admin: 07/29/20 10:27 Dose: 300 mg Documented by: Apixaban (Apixaban 2.5 Mg Tablet) 2.5 mg PO BID [facility] Last Admin: 07/29/20 22:08 Dose: 2.5 mg Documented by: Atorvastatin Calcium (Atorvastatin Calcium 10 Mg Tablet) 10 mg PO QHS [facility] Last Admin: 07/29/20 22:07 Dose: 10 mg Documented by: Calamine/Phenol (Menthol/Lanolin/Calamine/Znox 113 Gm Tube) 1 applic TOPICAL BID [facility]; Protocol Last Admin: 07/29/20 22:05 Dose: 1 applicatio Documented by: Carvedilol (Carvedilol 3.125 Mg Tablet) 3.125 mg PO BID [facility] Last Admin: 07/29/20 22:08 Dose: 3.125 mg Documented by: Colchicine (Colchicine 0.6 Mg Tablet) 0.6 mg PO DAILY [facility] Last Admin: 07/29/20 10:26 Dose: 0.6 mg Documented by: Diltiazem HCl (Diltiazem Cd 120 Mg Capsule) 120 mg PO DAILY [facility] Last Admin: 07/29/20 10:26 Dose: 120 mg Documented by: Guaifenesin (Guaifenesin 10 Ml Udc (200mg/10ml)) 20 ml PO Q4H PRN PRN PRN Reason: COUGH Hydralazine HCl (Hydralazine 20 Mg/Ml Vial) 10 mg IV Q4H PRN PRN PRN Reason: SBP > 160 Sodium Chloride () 1,000 mls @ 100 mls/hr IV .Q10H [facility] Last Admin: 07/30/20 07:19 Dose: 100 mls/hr Documented by: Pantoprazole Sodium 40 mg/ (Sodium Chloride) 110 mls @ 330 mls/hr IV Q12 [facility] Last Infusion: 07/29/20 22:30 Dose: Infused Documented by: Levothyroxine Sodium (Levothyroxine 75 Mcg Tablet) 75 mcg PO MoTuWeThFrSa@0600 [facility] Last Admin: 07/30/20 05:28 Dose: 75 mcg Documented by: Magnesium Hydroxide (Magnesium Hydroxide 30 Ml Udc) 30 ml PO DAILY PRN PRN PRN Reason: Constipation Melatonin (Melatonin 3 Mg Tablet) 3 mg PO QHS PRN PRN PRN Reason: INSOMNIA Morphine Sulfate (Morphine 2 Mg/Ml Syringe) 2 mg IV Q3H PRN PRN PRN Reason: Pain Score 6-10 Nitroglycerin (Nitroglycerin (Inpatient Use) 0.4 Mg Tab.Subl) 0.4 mg SUBLINGUAL Q5M PRN PRN Reason: CARDIAC/CHEST PAIN Nystatin (Nystatin Powder 15gm Bottle) 1 applic TOPICAL BID [facility]; Protocol Last Admin: 07/29/20 22:11 Dose: 1 applicatio Documented by: Ondansetron HCl (Ondansetron 4 Mg/2 Ml Vial) 4 mg IV Q8H PRN PRN PRN Reason: NAUSEA/VOMITING Oxycodone HCl (Oxycodone 5 Mg Tablet) 5 mg PO Q4H PRN PRN PRN Reason: Pain Score 4-5 Last Admin: 07/29/20 01:09 Dose: 5 mg Documented by: Paroxetine HCl (Paroxetine 10 Mg Tablet) 10 mg PO QHS [facility] Last Admin: 07/29/20 22:07 Dose: 10 mg Documented by: Prochlorperazine Edisylate (Prochlorperazine 10 Mg/2 Ml Vial) 5 mg IV Q4H PRN PRN PRN Reason: Breakthrough nausea/vomiting Psyllium Hydrophilic Mucilloid (Psyllium 1 Packet) 1 packet PO DAILY PRN PRN PRN Reason: Constipation Senna/Docusate Sodium (Senna/Docusate Sodium 1 Tablet) 2 tablet PO BID PRN PRN PRN Reason: Constipation Sodium Chloride (0.9% Saline Lock 10 Ml Syringe) 10 - 40 ml IV UD PRN PRN Reason: SALINE FLUSH Sodium Chloride (Sodium Chloride 0.65% 1 [place].Btl) 1 spray NASAL Q2H PRN PRN Reason: NASAL CONGESTION Throat Lozenges (Benzocaine/Menthol 1 Lozenge) 1 lozenge MUCOUS MEM Q2H PRN PRN PRN Reason: SORE THROAT STROKE Vital Signs/Narrative: Vital Signs Temp Pulse Resp BP Pulse Ox 07/30/20 08:25 97.0 F L 101 H 18 121/82 H 98 Medical Necessity - Tobacco Use Smoking Status: Never smoker Assessment/Plan All Active Problems (Last Reviewed 03/19/20 @ 14:[address] Naina Llamas, DO) Acute pancreatitis (Acute) Nausea and vomiting (Acute) Sinus tachycardia seen on equipment monitor phototypesetting (Acute) COVID-19 (Resolved) Hyperglycemia (Acute) Upper GI bleeding (Acute) Acute blood loss anemia (Acute) Atrial fibrillation with rapid ventricular response (Acute) Dyspnea (Acute) Back pain (Acute) Debility (Acute) Shortness of breath (Acute) Left ankle sprain (Acute) Multiple falls (Acute) JESSICA (acute kidney injury) (Acute) Generalized weakness (Acute) UTI (urinary tract infection) (Acute) Bradycardia (Acute) Confusion (Resolved) Esophageal stricture (Resolved) Expressive aphasia (Resolved) Hypoxia (Resolved) 1. Acute pancreatitis -Etiology unsure at the moment. LFTs are not elevated to indicate a duct stone -Lipase is essentially normalized. CT scan of the abdomen and pelvis is pending read -Continue with IV fluids at 100, can discontinue once she has improved oral intake -We will start her on a clear liquid diet today 2. Chronic diastolic CHF/paroxysmal A. fib/HTN/HLD/history of CVA -Blood pressure is stable -We will continue with her home blood pressure medications as well as her Eliquis -Hold Lasix while giving IV fluids, will likely restart in the morning 3. CKD 3 -Creatinine is at baseline 4. Hypothyroidism -Stable -Continue with Synthroid 5. Anxiety/depression -Stable -Continue with Paxil -Possibility of dementia though not on any treatment 6. Gout -Stable -Continue with allopurinol and colchicine 7. RODOLFO -Stable -Continue with CPAP at night 8. GERD -Stable -Continue with PPI DVT: Eliquis Inpatient E&M: 48332 Subs Hosp L2
[2020-07-30] MEDS: Nystatin Powder 15gm Bottle 1 APPLIC TOPICAL ×2 (11:32→22:37)
[2020-07-30] MEDS: Menthol/Lanolin/Calamine/Znox 113 GM Tube 1 APPLIC TOPICAL ×2 (11:32→22:35)
[2020-07-30] MEDS: Allopurinol 300 MG Tablet PO (11:34)
[2020-07-30] MEDS: dilTIAZem CD 120 MG Capsule PO (11:34)
[2020-07-30] MEDS: Carvedilol 3.125 MG TABLET PO ×2 (11:34→22:36)
[2020-07-30] MEDS: APIXABAN 2.5 MG TABLET PO ×2 (11:35→22:35)
[2020-07-30 16:22] VITALS: O2SAT 98
[2020-07-30 16:31] VITALS: BP 116/71; PULSE 74; RESP 18; TEMP 36.9; O2SAT 98
[2020-07-30 20:08] VITALS: BP 122/73; PULSE 110; RESP 18; TEMP 37.2; O2SAT 98
[2020-07-30 20:10] VITALS: RESP 18
[2020-07-30] MEDS: Atorvastatin Calcium 10 MG Tablet PO (22:35)
[2020-07-30] MEDS: PARoxetine 10 MG Tablet PO (22:36)
[2020-07-31] VITALS (9 sets, daily range): BP systolic 104–122; BP diastolic 63–76; PULSE 90–111; RESP 16–24; TEMP 36.7–36.9; O2SAT 92–96
[2020-07-31] MEDS: 0.9% Normal Saline 1,000 ML 100 ML IV (04:34)
[2020-07-31 07:38] LABS: Absolute Lymphocyte Count 0.94 X10^3/uL (0.83-4.51); Absolute Neutrophil Count 9.9 X10^3/uL (2.0-7.7); Basophil# 0.03 X10^3/uL; Basophil% 0.3 % (0-1); Eosinophil# 0.09 X10^3/uL; Eosinophils% 0.8 % (0-5); Hematocrit 32.9 % (37-47); Hemoglobin 10.4 g/dL (12.0-15.0); Lymphocyte # 0.94 X10^3/ul (4.0); Lymphocyte % 7.9 % (19-41); Mean Corp Hgb Conc 31.6 g/dL (32-36); Mean Corpuscular Hgb 31.2 pg (27.0-32.0); Mean Corpuscular Volume 98.8 fL (81-99); Monocyte# 0.93 X10^3/uL; Monocyte% 7.8 % (0-10); NRBC Flagged by Analyzer 0 % (0-5); Neutrophil # 9.89 X10^3/uL (2.7-7.7); Neutrophil % 82.8 % (47-70); Platelet Count 208 K/mm3 (150-450); RBC Distribution Width CV 14.9 % (11.6-14.6); RBC Distribution Width SD 54.5 fl (35.1-43.9); Red Blood Count 3.33 M/mm3 (4.2-5.4); White Blood Count 11.9 K/mm3 (4.4-11.0)
[2020-07-31] MEDS: Furosemide 40 MG/4 ML Vial IV (08:13)
[2020-07-31 08:35] LABS: Anion Gap 8 (5-15); BUN 14 mg/dL (7-18); Chloride 112 mmol/L (98-107); Creatinine, Serum 0.78 mg/dL (0.55-1.02); EST Glomerular Filtration Rate 75 mL/min (>60); Est Glom Filt Rate - Afr Amer 91 mL/min (>60); Estimated Creatinine Clearance 53.61 ml/min; Glucose 52 mg/dL (74-106); Potassium 3.5 mmol/L (3.5-5.1); Sodium Level 143 mmol/L (136-145)
[2020-07-31] MEDS: Allopurinol 300 MG Tablet PO (10:47)
[2020-07-31] MEDS: dilTIAZem CD 120 MG Capsule PO (10:47)
[2020-07-31] MEDS: APIXABAN 2.5 MG TABLET PO ×2 (10:47→21:57)
[2020-07-31] MEDS: Carvedilol 3.125 MG TABLET PO ×2 (10:47→21:56)
[2020-07-31] MEDS: Nystatin Powder 15gm Bottle 1 APPLIC TOPICAL ×2 (10:48→21:57)
[2020-07-31] MEDS: Menthol/Lanolin/Calamine/Znox 113 GM Tube 1 APPLIC TOPICAL ×2 (10:48→21:56)
--- NOTE | 2020-07-31 11:20 | PCM.PN.HOSP ---
Patient Problems: Active and Suspected Problems (Last Reviewed 03/19/20 @ 14:[address] Naina Llamas, DO) Acute pancreatitis (Acute) Nausea and vomiting (Acute) Sinus tachycardia seen on cardiac catheterization technician (Acute) Hyperglycemia (Acute) Upper GI bleeding (Acute) Dyspnea (Acute) Debility (Acute) Generalized weakness (Acute) Subjective: Denies any significant abdominal pain. She is a little bit confused today likely secondary to some volume overload from IV fluids to treat her pancreatitis. Vitals/I&O's: Vital Signs Temp Pulse Resp BP Pulse Ox 98.0 F 108 H 16 122/76 H 94 07/31/20 08:20 07/31/20 08:20 07/31/20 08:49 07/31/20 08:20 07/31/20 08:20 Oxygen Flow Rate (L/min) 2 Oxygen Delivery Method Nasal Cannula Weight: 172 lb 9.951 oz Body Mass Index (BMI) 32.9 Finger Stick Blood Glucose 132 Intake and Output for Last 24 Hours 07/29/20 07/30/20 07/31/20 23:59 23:59 23:59 Intake Total 3995.00 / 3995.00 2821.67 / 2821.67 1375 / 1375 Output Total 450 / 450 150 / 150 Balance 3545.00 / 3545.00 2671.67 / 2671.67 1375 / 1375 General: Alert, confused, Cooperative, No apparent distress HEENT: Atraumatic, PERRLA, EOMI, Normocephalic Oral: Moist Mucosa Neck: Supple, No JVD Lungs: Normal air movement, No rhonchi, No wheeze, No rales, Diminished in bilateral bases Cardiovascular: Regular rate, Regular Rhythm, Normal S1, Normal S2, No murmurs Abdomen: Soft, Non-Distended, No Hepato-splenomegaly, nontender Extremities: No edema, Capillary Refill Less than 3 Seconds Skin: No rashes, No breakdown Neurological: Neuro grossly intact, Sensory exam intact to light touch and pain Psych/Mental Status: Normal Affect, Appropriate Microbiology Past 72 Hours 07/31/20 00:40 Stool Enteric Bacteriology - Final 07/31/20 00:40 Stool C. difficile DNA Amplification - Final 07/29/20 09:50 Interface Orders SARS-CoV-2 Antigen (Rapid) - Final Laboratory Results 07/31/20 05:55: WBC 11.9 H, RBC 3.33 L, Hgb 10.4 L, Hct 32.9 L, MCV 98.8, MCH 31.2, MCHC 31.6 L, RDW Std Deviation 54.5 H, RDW Coeff of Cricket 14.9 H, Plt Count 208, MPV 12.0, Immature Gran % (Auto) 0.400, Neut % (Auto) 82.8 H, Lymph % (Auto) 7.9 L, [place] % (Auto) 7.8, Eos % (Auto) 0.8, Baso % (Auto) 0.3, Absolute Neuts (auto) 9.9 H, Absolute Lymphs (auto) 0.94, Nucleated RBC % 0 07/31/20 05:55: Sodium 143, Potassium 3.5, Chloride 112 H, Carbon Dioxide 23.0, Anion Gap 8, BUN 14, Creatinine 0.78, Estim Creat Clear Calc 53.61, Est GFR (MDRD) Af Amer 91, Est GFR (MDRD) Non-Af 75, BUN/Creatinine Ratio 18.0, Glucose 52 L, Calcium 9.0 Current Medications Acetaminophen (Acetaminophen 325 Mg Tablet) 650 mg PO Q6H PRN PRN PRN Reason: Pain Score 1-10/Temp > 100.7 F Last Admin: 07/29/20 19:38 Dose: 650 mg Documented by: Al Hydroxide/Mg Hydroxide (Mag Hydrox/Al Hydrox/Simeth 30 Ml Udc) 30 ml PO Q6H PRN PRN PRN Reason: Gastric Burning Albuterol Sulfate (Albuterol 2.5 Mg/3 Ml Vial.Neb.) 2.5 mg INHALATION Q2H PRN PRN PRN Reason: Dyspnea, wheezing Allopurinol (Allopurinol 300 Mg Tablet) 300 mg PO DAILY [facility] Last Admin: 07/31/20 10:47 Dose: 300 mg Documented by: Apixaban (Apixaban 2.5 Mg Tablet) 2.5 mg PO BID [facility] Last Admin: 07/31/20 10:47 Dose: 2.5 mg Documented by: Atorvastatin Calcium (Atorvastatin Calcium 10 Mg Tablet) 10 mg PO QHS [facility] Last Admin: 07/30/20 22:35 Dose: 10 mg Documented by: Calamine/Phenol (Menthol/Lanolin/Calamine/Znox 113 Gm Tube) 1 applic TOPICAL BID [facility]; Protocol Last Admin: 07/31/20 10:48 Dose: 1 applicatio Documented by: Carvedilol (Carvedilol 3.125 Mg Tablet) 3.125 mg PO BID [facility] Last Admin: 07/31/20 10:47 Dose: 3.125 mg Documented by: Colchicine (Colchicine 0.6 Mg Tablet) 0.6 mg PO DAILY [facility] Last Admin: 07/31/20 10:48 Dose: 0.6 mg Documented by: Diltiazem HCl (Diltiazem Cd 120 Mg Capsule) 120 mg PO DAILY [facility] Last Admin: 07/31/20 10:47 Dose: 120 mg Documented by: Guaifenesin (Guaifenesin 10 Ml Udc (200mg/10ml)) 20 ml PO Q4H PRN PRN PRN Reason: COUGH Hydralazine HCl (Hydralazine 20 Mg/Ml Vial) 10 mg IV Q4H PRN PRN PRN Reason: SBP > 160 Levothyroxine Sodium (Levothyroxine 75 Mcg Tablet) 75 mcg PO MoTuWeThFrSa@0600 [facility] Last Admin: 07/30/20 05:28 Dose: 75 mcg Documented by: Magnesium Hydroxide (Magnesium Hydroxide 30 Ml Udc) 30 ml PO DAILY PRN PRN PRN Reason: Constipation Melatonin (Melatonin 3 Mg Tablet) 3 mg PO QHS PRN PRN PRN Reason: INSOMNIA Nitroglycerin (Nitroglycerin (Inpatient Use) 0.4 Mg Tab.Subl) 0.4 mg SUBLINGUAL Q5M PRN PRN Reason: CARDIAC/CHEST PAIN Nystatin (Nystatin Powder 15gm Bottle) 1 applic TOPICAL BID [facility]; Protocol Last Admin: 07/31/20 10:48 Dose: 1 applicatio Documented by: Ondansetron HCl (Ondansetron 4 Mg/2 Ml Vial) 4 mg IV Q8H PRN PRN PRN Reason: NAUSEA/VOMITING Oxycodone HCl (Oxycodone 5 Mg Tablet) 5 mg PO Q4H PRN PRN PRN Reason: Pain Score 4-5 Last Admin: 07/29/20 01:09 Dose: 5 mg Documented by: Pantoprazole Sodium (Pantoprazole Sodium 40 Mg Tablet) 40 mg PO BID [facility] Paroxetine HCl (Paroxetine 10 Mg Tablet) 10 mg PO QHS [facility] Last Admin: 07/30/20 22:36 Dose: 10 mg Documented by: Prochlorperazine Edisylate (Prochlorperazine 10 Mg/2 Ml Vial) 5 mg IV Q4H PRN PRN PRN Reason: Breakthrough nausea/vomiting Psyllium Hydrophilic Mucilloid (Psyllium 1 Packet) 1 packet PO DAILY PRN PRN PRN Reason: Constipation Senna/Docusate Sodium (Senna/Docusate Sodium 1 Tablet) 2 tablet PO BID PRN PRN PRN Reason: Constipation Sodium Chloride (0.9% Saline Lock 10 Ml Syringe) 10 - 40 ml IV UD PRN PRN Reason: SALINE FLUSH Sodium Chloride (Sodium Chloride 0.65% 1 [place].Btl) 1 spray NASAL Q2H PRN PRN Reason: NASAL CONGESTION Throat Lozenges (Benzocaine/Menthol 1 Lozenge) 1 lozenge MUCOUS MEM Q2H PRN PRN PRN Reason: SORE THROAT STROKE Vital Signs/Narrative: Vital Signs Temp Pulse Resp BP Pulse Ox 07/31/20 08:49 16 07/31/20 08:20 98.0 F 108 H 16 122/76 H 94 Medical Necessity - Tobacco Use Smoking Status: Never smoker Assessment/Plan All Active Problems (Last Reviewed 03/19/20 @ 14:[address] Naina Llamas, DO) Acute pancreatitis (Acute) Nausea and vomiting (Acute) Sinus tachycardia seen on cardiac catheterization technician (Acute) COVID-19 (Resolved) Hyperglycemia (Acute) Upper GI bleeding (Acute) Acute blood loss anemia (Acute) Atrial fibrillation with rapid ventricular response (Acute) Dyspnea (Acute) Back pain (Acute) Debility (Acute) Shortness of breath (Acute) Left ankle sprain (Acute) Multiple falls (Acute) JESSICA (acute kidney injury) (Acute) Generalized weakness (Acute) UTI (urinary tract infection) (Acute) Bradycardia (Acute) Confusion (Resolved) Esophageal stricture (Resolved) Expressive aphasia (Resolved) Hypoxia (Resolved) 1. Acute pancreatitis -Etiology unsure at the moment. LFTs are not elevated to indicate a duct stone -Lipase is essentially normalized. CT scan of the abdomen and pelvis demonstrates a dilated common bile duct, which can be consistent with postcholecystectomy, appreciate general surgery input and assistance -Hold IV fluids as she is now on oxygen with diminished breath sounds, proceed with IV Lasix. She is about 7 L positive -Advance to full liquid diet today 2. Chronic diastolic CHF/paroxysmal A. fib/HTN/HLD/history of CVA -Blood pressure is stable -We will continue with her home blood pressure medications as well as her Eliquis -We will discontinue her IV fluids and will give her dose of IV Lasix 3. CKD 3 -Creatinine is at baseline 4. Hypothyroidism -Stable -Continue with Synthroid 5. Anxiety/depression -Stable -Continue with Paxil -Possibility of dementia though not on any treatment 6. Gout -Stable -Continue with allopurinol and colchicine 7. RODOLFO -Stable -Continue with CPAP at night 8. GERD -Stable -Continue with PPI DVT: Eliquis Inpatient E&M: 47725 Subs Hosp L2
[2020-07-31] MEDS: Pantoprazole Sodium 40 MG Tablet PO (12:14)
--- NOTE | 2020-07-31 12:29 | PCM.PN.SRG ---
Patient Problems: Active and Suspected Problems (Last Reviewed 03/19/20 @ 14:[address] Naina Llamas, DO) Acute pancreatitis (Acute) Nausea and vomiting (Acute) Sinus tachycardia seen on cardiac technologist (Acute) Hyperglycemia (Acute) Upper GI bleeding (Acute) Dyspnea (Acute) Debility (Acute) Generalized weakness (Acute) Subjective: Patient has no pain today. Objective: Abdomen is soft. - Physical Exam Vitals/I&O's: Vital Signs Temp Pulse Resp BP Pulse Ox 98.0 F 108 H 16 122/76 H 94 07/31/20 08:20 07/31/20 08:20 07/31/20 08:49 07/31/20 08:20 07/31/20 08:20 Oxygen Flow Rate (L/min) 2 Oxygen Delivery Method Nasal Cannula Weight: 172 lb 9.951 oz Body Mass Index (BMI) 32.9 Finger Stick Blood Glucose 132 Intake and Output for Last 24 Hours 07/29/20 07/30/20 07/31/20 23:59 23:59 23:59 Intake Total 3995.00 / 3995.00 2821.67 / 2821.67 1375 / 1375 Output Total 450 / 450 150 / 150 Balance 3545.00 / 3545.00 2671.67 / 2671.67 1375 / 1375 Microbiology Past 72 Hours 07/31/20 00:40 Stool Enteric Bacteriology - Final 07/31/20 00:40 Stool C. difficile DNA Amplification - Final 07/29/20 09:50 Interface Orders SARS-CoV-2 Antigen (Rapid) - Final Laboratory Results 07/31/20 05:55: WBC 11.9 H, RBC 3.33 L, Hgb 10.4 L, Hct 32.9 L, MCV 98.8, MCH 31.2, MCHC 31.6 L, RDW Std Deviation 54.5 H, RDW Coeff of Cricket 14.9 H, Plt Count 208, MPV 12.0, Immature Gran % (Auto) 0.400, Neut % (Auto) 82.8 H, Lymph % (Auto) 7.9 L, [place] % (Auto) 7.8, Eos % (Auto) 0.8, Baso % (Auto) 0.3, Absolute Neuts (auto) 9.9 H, Absolute Lymphs (auto) 0.94, Nucleated RBC % 0 07/31/20 05:55: Sodium 143, Potassium 3.5, Chloride 112 H, Carbon Dioxide 23.0, Anion Gap 8, BUN 14, Creatinine 0.78, Estim Creat Clear Calc 53.61, Est GFR (MDRD) Af Amer 91, Est GFR (MDRD) Non-Af 75, BUN/Creatinine Ratio 18.0, Glucose 52 L, Calcium 9.0 Current Medications Acetaminophen (Acetaminophen 325 Mg Tablet) 650 mg PO Q6H PRN PRN PRN Reason: Pain Score 1-10/Temp > 100.7 F Last Admin: 07/29/20 19:38 Dose: 650 mg Documented by: Al Hydroxide/Mg Hydroxide (Mag Hydrox/Al Hydrox/Simeth 30 Ml Udc) 30 ml PO Q6H PRN PRN PRN Reason: Gastric Burning Albuterol Sulfate (Albuterol 2.5 Mg/3 Ml Vial.Neb.) 2.5 mg INHALATION Q2H PRN PRN PRN Reason: Dyspnea, wheezing Allopurinol (Allopurinol 300 Mg Tablet) 300 mg PO DAILY [facility] Last Admin: 07/31/20 10:47 Dose: 300 mg Documented by: Apixaban (Apixaban 2.5 Mg Tablet) 2.5 mg PO BID [facility] Last Admin: 07/31/20 10:47 Dose: 2.5 mg Documented by: Atorvastatin Calcium (Atorvastatin Calcium 10 Mg Tablet) 10 mg PO QHS [facility] Last Admin: 07/30/20 22:35 Dose: 10 mg Documented by: Calamine/Phenol (Menthol/Lanolin/Calamine/Znox 113 Gm Tube) 1 applic TOPICAL BID [facility]; Protocol Last Admin: 07/31/20 10:48 Dose: 1 applicatio Documented by: Carvedilol (Carvedilol 3.125 Mg Tablet) 3.125 mg PO BID [facility] Last Admin: 07/31/20 10:47 Dose: 3.125 mg Documented by: Colchicine (Colchicine 0.6 Mg Tablet) 0.6 mg PO DAILY [facility] Last Admin: 07/31/20 10:48 Dose: 0.6 mg Documented by: Diltiazem HCl (Diltiazem Cd 120 Mg Capsule) 120 mg PO DAILY [facility] Last Admin: 07/31/20 10:47 Dose: 120 mg Documented by: Furosemide (Furosemide 40 Mg/4 Ml Vial) 40 mg IV X1 ONE Stop: 07/31/20 16:01 Guaifenesin (Guaifenesin 10 Ml Udc (200mg/10ml)) 20 ml PO Q4H PRN PRN PRN Reason: COUGH Hydralazine HCl (Hydralazine 20 Mg/Ml Vial) 10 mg IV Q4H PRN PRN PRN Reason: SBP > 160 Levothyroxine Sodium (Levothyroxine 75 Mcg Tablet) 75 mcg PO MoTuWeThFrSa@0600 [facility] Last Admin: 07/30/20 05:28 Dose: 75 mcg Documented by: Magnesium Hydroxide (Magnesium Hydroxide 30 Ml Udc) 30 ml PO DAILY PRN PRN PRN Reason: Constipation Melatonin (Melatonin 3 Mg Tablet) 3 mg PO QHS PRN PRN PRN Reason: INSOMNIA Nitroglycerin (Nitroglycerin (Inpatient Use) 0.4 Mg Tab.Subl) 0.4 mg SUBLINGUAL Q5M PRN PRN Reason: CARDIAC/CHEST PAIN Nystatin (Nystatin Powder 15gm Bottle) 1 applic TOPICAL BID [facility]; Protocol Last Admin: 07/31/20 10:48 Dose: 1 applicatio Documented by: Ondansetron HCl (Ondansetron 4 Mg/2 Ml Vial) 4 mg IV Q8H PRN PRN PRN Reason: NAUSEA/VOMITING Oxycodone HCl (Oxycodone 5 Mg Tablet) 5 mg PO Q4H PRN PRN PRN Reason: Pain Score 4-5 Last Admin: 07/29/20 01:09 Dose: 5 mg Documented by: Pantoprazole Sodium (Pantoprazole Sodium 40 Mg Tablet) 40 mg PO BID [facility] Last Admin: 07/31/20 12:14 Dose: 40 mg Documented by: Paroxetine HCl (Paroxetine 10 Mg Tablet) 10 mg PO QHS [facility] Last Admin: 07/30/20 22:36 Dose: 10 mg Documented by: Prochlorperazine Edisylate (Prochlorperazine 10 Mg/2 Ml Vial) 5 mg IV Q4H PRN PRN PRN Reason: Breakthrough nausea/vomiting Psyllium Hydrophilic Mucilloid (Psyllium 1 Packet) 1 packet PO DAILY PRN PRN PRN Reason: Constipation Senna/Docusate Sodium (Senna/Docusate Sodium 1 Tablet) 2 tablet PO BID PRN PRN PRN Reason: Constipation Sodium Chloride (0.9% Saline Lock 10 Ml Syringe) 10 - 40 ml IV UD PRN PRN Reason: SALINE FLUSH Sodium Chloride (Sodium Chloride 0.65% 1 [place].Btl) 1 spray NASAL Q2H PRN PRN Reason: NASAL CONGESTION Throat Lozenges (Benzocaine/Menthol 1 Lozenge) 1 lozenge MUCOUS MEM Q2H PRN PRN PRN Reason: SORE THROAT Medical Necessity - Tobacco Use Smoking Status: Never smoker Assessment/Plan All Active Problems (Last Reviewed 03/19/20 @ 14:[address] Naina Llamas, DO) Acute pancreatitis (Acute) Nausea and vomiting (Acute) Sinus tachycardia seen on cardiac technologist (Acute) COVID-19 (Resolved) Hyperglycemia (Acute) Upper GI bleeding (Acute) Acute blood loss anemia (Acute) Atrial fibrillation with rapid ventricular response (Acute) Dyspnea (Acute) Back pain (Acute) Debility (Acute) Shortness of breath (Acute) Left ankle sprain (Acute) Multiple falls (Acute) JESSICA (acute kidney injury) (Acute) Generalized weakness (Acute) UTI (urinary tract infection) (Acute) Bradycardia (Acute) Confusion (Resolved) Esophageal stricture (Resolved) Expressive aphasia (Resolved) Hypoxia (Resolved) Resolving pancreatitis. Would remain on full liquids at this time.
[2020-07-31] MEDS: PARoxetine 10 MG Tablet PO (21:57)
[2020-07-31] MEDS: Atorvastatin Calcium 10 MG Tablet PO (21:57)
[2020-08-01 03:22] VITALS: BP 121/72; PULSE 83; RESP 24; TEMP 36.9; O2SAT 95
[2020-08-01] MEDS: Levothyroxine 75 MCG Tablet PO (05:19)
[2020-08-01 06:12] LABS: Absolute Lymphocyte Count 1.16 X10^3/uL (0.83-4.51); Absolute Neutrophil Count 6.3 X10^3/uL (2.0-7.7); Basophil# 0.02 X10^3/uL; Basophil% 0.2 % (0-1); Eosinophil# 0.15 X10^3/uL; Eosinophils% 1.8 % (0-5); Hematocrit 33.1 % (37-47); Hemoglobin 10.7 g/dL (12.0-15.0); Lymphocyte # 1.16 X10^3/ul (4.0); Lymphocyte % 13.7 % (19-41); Mean Corp Hgb Conc 32.3 g/dL (32-36); Mean Corpuscular Hgb 32.3 pg (27.0-32.0); Monocyte# 0.81 X10^3/uL; Monocyte% 9.6 % (0-10); NRBC Flagged by Analyzer 0 % (0-5); Neutrophil # 6.28 X10^3/uL (2.7-7.7); Neutrophil % 74.2 % (47-70); Platelet Count 218 K/mm3 (150-450); RBC Distribution Width CV 14.9 % (11.6-14.6); RBC Distribution Width SD 54.6 fl (35.1-43.9); Red Blood Count 3.31 M/mm3 (4.2-5.4); White Blood Count 8.5 K/mm3 (4.4-11.0)
[2020-08-01 06:46] LABS: Anion Gap 6 (5-15); BUN 13 mg/dL (7-18); BUN/Creat Ratio 14.7 RATIO (10-20); Calcium,Total 9.3 mg/dL (8.5-10.1); Chloride 112 mmol/L (98-107); Creatinine, Serum 0.88 mg/dL (0.55-1.02); EST Glomerular Filtration Rate 65 mL/min (>60); Est Glom Filt Rate - Afr Amer 79 mL/min (>60); Estimated Creatinine Clearance 60.22 ml/min; Glucose 70 mg/dL (74-106); Sodium Level 143 mmol/L (136-145)
[2020-08-01 07:12] VITALS: O2SAT 94
[2020-08-01 08:00] VITALS: BP 128/93; PULSE 97; RESP 18; TEMP 36.9; O2SAT 96
[2020-08-01 08:24] LABS: AST(SGOT) 13 U/L (15-37); Alanine Aminotransfer ALT/SGPT 12 U/L (13-56); Albumin, Serum 2.1 g/dL (3.2-5.0); Alkaline Phosphatase 127 U/L (45-117); Bilirubin, Direct 0.35 mg/dL (0.00-0.30); Globulin 2.7 g/dL (2.2-4.2); Protein, Total 4.8 g/dL (6.4-8.2)
--- NOTE | 2020-08-01 09:08 | CASEMGMT ---
Social Work Note SW faxed updated clinicals to [facility]. 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
[2020-08-01] MEDS: Allopurinol 300 MG Tablet PO (09:34)
[2020-08-01] MEDS: Pantoprazole Sodium 40 MG Tablet PO (09:34)
[2020-08-01] MEDS: dilTIAZem CD 120 MG Capsule PO (09:34)
[2020-08-01] MEDS: Nystatin Powder 15gm Bottle 1 APPLIC TOPICAL (09:34)
[2020-08-01] MEDS: Menthol/Lanolin/Calamine/Znox 113 GM Tube 1 APPLIC TOPICAL (09:34)
[2020-08-01] MEDS: APIXABAN 2.5 MG TABLET PO (09:34)
[2020-08-01] MEDS: Carvedilol 3.125 MG TABLET PO (09:34)
--- NOTE | 2020-08-01 10:28 | PCM.PN.HOSP ---
Patient Problems: Active and Suspected Problems (Last Reviewed 03/19/20 @ 14:[address] Naina Llamas, DO) Acute pancreatitis (Acute) Nausea and vomiting (Acute) Sinus tachycardia seen on property assessment monitor (Acute) Hyperglycemia (Acute) Upper GI bleeding (Acute) Dyspnea (Acute) Debility (Acute) Generalized weakness (Acute) Reason for Visit: pancreatitis Subjective: Feels well. No further abdominal pain. Tolerating PO. Vitals/I&O's: Vital Signs Temp Pulse Resp BP Pulse Ox 36.9 C 97 18 128/93 H 96 08/01/20 08:00 08/01/20 08:00 08/01/20 08:00 08/01/20 08:00 08/01/20 08:00 Oxygen Flow Rate (L/min) 2 Oxygen Delivery Method Room Air Weight: 77.4 kg Body Mass Index (BMI) 32.9 Finger Stick Blood Glucose 132 Intake and Output for Last 24 Hours 07/30/20 07/31/20 08/01/20 23:59 23:59 23:59 Intake Total 2821.67 / 2821.67 2775 / 2775 400 / 400 Output Total 150 / 150 Balance 2671.67 / 2671.67 2775 / 2775 400 / 400 General: Alert, No apparent distress Oral: Moist Mucosa, No Gingival or Mucosal Lesions/ Ulcerations Neck: No Nodes, Thyroid Normal Size and Texture Lungs: Clear to auscultation, Normal air movement, No rhonchi, No wheeze, No rales, Diminished Cardiovascular: Regular rate, Regular Rhythm, Normal S1, Normal S2, No murmurs Abdomen: Bowel Sounds Present, Soft, Non Tender, Non-Distended, No Hepato-splenomegaly Extremities: No edema, No Calf Tenderness Skin: No rashes, No breakdown Musculoskeletal: No Tenderness to Palpation of Joints or Extremities, No Muscle Wasting Microbiology Past 72 Hours 07/31/20 00:40 Stool Enteric Bacteriology - Final 07/31/20 00:40 Stool C. difficile DNA Amplification - Final 07/29/20 09:50 Interface Orders SARS-CoV-2 Antigen (Rapid) - Final Laboratory Results 08/01/20 05:04: WBC 8.5, RBC 3.31 L, Hgb 10.7 L, Hct 33.1 L, MCV 100.0 H, MCH 32.3 H, MCHC 32.3, RDW Std Deviation 54.6 H, RDW Coeff of Cricket 14.9 H, Plt Count 218, MPV 12.0, Immature Gran % (Auto) 0.500, Neut % (Auto) 74.2 H, Lymph % (Auto) 13.7 L, [place] % (Auto) 9.6, Eos % (Auto) 1.8, Baso % (Auto) 0.2, Absolute Neuts (auto) 6.3, Absolute Lymphs (auto) 1.16, Nucleated RBC % 0 08/01/20 05:04: Sodium 143, Potassium 3.0 L, Chloride 112 H, Carbon Dioxide 25.0, Anion Gap 6, BUN 13, Creatinine 0.88, Estim Creat Clear Calc 60.22, Est GFR (MDRD) Af Amer 79, Est GFR (MDRD) Non-Af 65, BUN/Creatinine Ratio 14.7, Glucose 70 L, Calcium 9.3 08/01/20 05:04: Total Bilirubin 0.70, Direct Bilirubin 0.35 H, AST 13 L, ALT 12 L, Alkaline Phosphatase 127 H, Total Protein 4.8 L, Albumin 2.1 L, Globulin 2.7 Current Medications Acetaminophen (Acetaminophen 325 Mg Tablet) 650 mg PO Q6H PRN PRN PRN Reason: Pain Score 1-10/Temp > 100.7 F Last Admin: 07/29/20 19:38 Dose: 650 mg Documented by: Al Hydroxide/Mg Hydroxide (Mag Hydrox/Al Hydrox/Simeth 30 Ml Udc) 30 ml PO Q6H PRN PRN PRN Reason: Gastric Burning Albuterol Sulfate (Albuterol 2.5 Mg/3 Ml Vial.Neb.) 2.5 mg INHALATION Q2H PRN PRN PRN Reason: Dyspnea, wheezing Allopurinol (Allopurinol 300 Mg Tablet) 300 mg PO DAILY [facility] Last Admin: 08/01/20 09:34 Dose: 300 mg Documented by: Apixaban (Apixaban 2.5 Mg Tablet) 2.5 mg PO BID [facility] Last Admin: 08/01/20 09:34 Dose: 2.5 mg Documented by: Atorvastatin Calcium (Atorvastatin Calcium 10 Mg Tablet) 10 mg PO QHS [facility] Last Admin: 07/31/20 21:57 Dose: 10 mg Documented by: Calamine/Phenol (Menthol/Lanolin/Calamine/Znox 113 Gm Tube) 1 applic TOPICAL BID [facility]; Protocol Last Admin: 08/01/20 09:34 Dose: 1 applicatio Documented by: Carvedilol (Carvedilol 3.125 Mg Tablet) 3.125 mg PO BID [facility] Last Admin: 08/01/20 09:34 Dose: 3.125 mg Documented by: Colchicine (Colchicine 0.6 Mg Tablet) 0.6 mg PO DAILY [facility] Last Admin: 08/01/20 09:34 Dose: 0.6 mg Documented by: Diltiazem HCl (Diltiazem Cd 120 Mg Capsule) 120 mg PO DAILY [facility] Last Admin: 08/01/20 09:34 Dose: 120 mg Documented by: Guaifenesin (Guaifenesin 10 Ml Udc (200mg/10ml)) 20 ml PO Q4H PRN PRN PRN Reason: COUGH Hydralazine HCl (Hydralazine 20 Mg/Ml Vial) 10 mg IV Q4H PRN PRN PRN Reason: SBP > 160 Levothyroxine Sodium (Levothyroxine 75 Mcg Tablet) 75 mcg PO MoTuWeThFrSa@0600 [facility] Last Admin: 08/01/20 05:19 Dose: 75 mcg Documented by: Magnesium Hydroxide (Magnesium Hydroxide 30 Ml Udc) 30 ml PO DAILY PRN PRN PRN Reason: Constipation Melatonin (Melatonin 3 Mg Tablet) 3 mg PO QHS PRN PRN PRN Reason: INSOMNIA Nitroglycerin (Nitroglycerin (Inpatient Use) 0.4 Mg Tab.Subl) 0.4 mg SUBLINGUAL Q5M PRN PRN Reason: CARDIAC/CHEST PAIN Nystatin (Nystatin Powder 15gm Bottle) 1 applic TOPICAL BID [facility]; Protocol Last Admin: 08/01/20 09:34 Dose: 1 applicatio Documented by: Ondansetron HCl (Ondansetron 4 Mg/2 Ml Vial) 4 mg IV Q8H PRN PRN PRN Reason: NAUSEA/VOMITING Oxycodone HCl (Oxycodone 5 Mg Tablet) 5 mg PO Q4H PRN PRN PRN Reason: Pain Score 4-5 Last Admin: 07/29/20 01:09 Dose: 5 mg Documented by: Pantoprazole Sodium (Pantoprazole Sodium 40 Mg Tablet) 40 mg PO BID [facility] Last Admin: 08/01/20 09:34 Dose: 40 mg Documented by: Paroxetine HCl (Paroxetine 10 Mg Tablet) 10 mg PO QHS [facility] Last Admin: 07/31/20 21:57 Dose: 10 mg Documented by: Potassium Chloride (Potassium Chloride 20 [facility]eq [facility]t) [facility] Prochlorperazine Edisylate (Prochlorperazine 10 Mg/2 Ml Vial) 5 mg IV Q4H PRN PRN PRN Reason: Breakthrough nausea/vomiting Psyllium Hydrophilic Mucilloid (Psyllium 1 Packet) 1 packet PO DAILY PRN PRN PRN Reason: Constipation Senna/Docusate Sodium (Senna/Docusate Sodium 1 Tablet) 2 tablet PO BID PRN PRN PRN Reason: Constipation Sodium Chloride (0.9% Saline Lock 10 Ml Syringe) 10 - 40 ml IV UD PRN PRN Reason: SALINE FLUSH Sodium Chloride (Sodium Chloride 0.65% 1 [place].Btl) 1 spray NASAL Q2H PRN PRN Reason: NASAL CONGESTION Throat Lozenges (Benzocaine/Menthol 1 Lozenge) 1 lozenge MUCOUS MEM Q2H PRN PRN PRN Reason: SORE THROAT STROKE Vital Signs/Narrative: Vital Signs Temp Pulse Resp BP Pulse Ox 08/01/20 08:00 36.9 C 97 18 128/93 H 96 08/01/20 07:12 94 Medical Necessity - Tobacco Use Smoking Status: Never smoker Assessment/Plan All Active Problems (Last Reviewed 03/19/20 @ 14:[address] Naina Llamas, DO) Acute pancreatitis (Acute) Nausea and vomiting (Acute) Sinus tachycardia seen on property assessment monitor (Acute) COVID-19 (Resolved) Hyperglycemia (Acute) Upper GI bleeding (Acute) Acute blood loss anemia (Acute) Atrial fibrillation with rapid ventricular response (Acute) Dyspnea (Acute) Back pain (Acute) Debility (Acute) Shortness of breath (Acute) Left ankle sprain (Acute) Multiple falls (Acute) JESSICA (acute kidney injury) (Acute) Generalized weakness (Acute) UTI (urinary tract infection) (Acute) Bradycardia (Acute) Confusion (Resolved) Esophageal stricture (Resolved) Expressive aphasia (Resolved) Hypoxia (Resolved) 1. acute pancreatitis resolved quickly s/p cholecystectomy no alcohol consumption await general surgery input 2. VTE: apixaban 3. Hypokalemia: replace Inpatient E&M: 83202 Subs Hosp L2
--- NOTE | 2020-08-01 11:08 | PCM.PN.SRG ---
Patient Problems: Active and Suspected Problems (Last Reviewed 03/19/20 @ 14:[address] Naina Llamas, DO) Acute pancreatitis (Acute) Nausea and vomiting (Acute) Sinus tachycardia seen on cardiac sonographer (Acute) Hyperglycemia (Acute) Upper GI bleeding (Acute) Dyspnea (Acute) Debility (Acute) Generalized weakness (Acute) Subjective: Patient reports no nausea vomiting or abdominal pain today - Physical Exam Vitals/I&O's: Vital Signs Temp Pulse Resp BP Pulse Ox 98.4 F 97 18 128/93 H 96 08/01/20 08:00 08/01/20 08:00 08/01/20 08:00 08/01/20 08:00 08/01/20 08:00 Oxygen Flow Rate (L/min) 2 Oxygen Delivery Method Room Air Weight: 170 lb 10.205 oz Body Mass Index (BMI) 32.9 Finger Stick Blood Glucose 132 Intake and Output for Last 24 Hours 07/30/20 07/31/20 08/01/20 23:59 23:59 23:59 Intake Total 2821.67 / 2821.67 2775 / 2775 400 / 400 Output Total 150 / 150 Balance 2671.67 / 2671.67 2775 / 2775 400 / 400 General: Alert, Oriented x3 Lungs: Normal air movement Cardiovascular: Regular rate, Regular Rhythm Abdomen: Soft, Non Tender, Non-Distended Microbiology Past 72 Hours 07/31/20 00:40 Stool Enteric Bacteriology - Final 07/31/20 00:40 Stool C. difficile DNA Amplification - Final 07/29/20 09:50 Interface Orders SARS-CoV-2 Antigen (Rapid) - Final Laboratory Results 08/01/20 05:04: WBC 8.5, RBC 3.31 L, Hgb 10.7 L, Hct 33.1 L, MCV 100.0 H, MCH 32.3 H, MCHC 32.3, RDW Std Deviation 54.6 H, RDW Coeff of Cricket 14.9 H, Plt Count 218, MPV 12.0, Immature Gran % (Auto) 0.500, Neut % (Auto) 74.2 H, Lymph % (Auto) 13.7 L, [place] % (Auto) 9.6, Eos % (Auto) 1.8, Baso % (Auto) 0.2, Absolute Neuts (auto) 6.3, Absolute Lymphs (auto) 1.16, Nucleated RBC % 0 08/01/20 05:04: Sodium 143, Potassium 3.0 L, Chloride 112 H, Carbon Dioxide 25.0, Anion Gap 6, BUN 13, Creatinine 0.88, Estim Creat Clear Calc 60.22, Est GFR (MDRD) Af Amer 79, Est GFR (MDRD) Non-Af 65, BUN/Creatinine Ratio 14.7, Glucose 70 L, Calcium 9.3 08/01/20 05:04: Total Bilirubin 0.70, Direct Bilirubin 0.35 H, AST 13 L, ALT 12 L, Alkaline Phosphatase 127 H, Total Protein 4.8 L, Albumin 2.1 L, Globulin 2.7 Current Medications Acetaminophen (Acetaminophen 325 Mg Tablet) 650 mg PO Q6H PRN PRN PRN Reason: Pain Score 1-10/Temp > 100.7 F Last Admin: 07/29/20 19:38 Dose: 650 mg Documented by: Al Hydroxide/Mg Hydroxide (Mag Hydrox/Al Hydrox/Simeth 30 Ml Udc) 30 ml PO Q6H PRN PRN PRN Reason: Gastric Burning Albuterol Sulfate (Albuterol 2.5 Mg/3 Ml Vial.Neb.) 2.5 mg INHALATION Q2H PRN PRN PRN Reason: Dyspnea, wheezing Allopurinol (Allopurinol 300 Mg Tablet) 300 mg PO DAILY [facility] Last Admin: 08/01/20 09:34 Dose: 300 mg Documented by: Apixaban (Apixaban 2.5 Mg Tablet) 2.5 mg PO BID [facility] Last Admin: 08/01/20 09:34 Dose: 2.5 mg Documented by: Atorvastatin Calcium (Atorvastatin Calcium 10 Mg Tablet) 10 mg PO QHS [facility] Last Admin: 07/31/20 21:57 Dose: 10 mg Documented by: Calamine/Phenol (Menthol/Lanolin/Calamine/Znox 113 Gm Tube) 1 applic TOPICAL BID [facility]; Protocol Last Admin: 08/01/20 09:34 Dose: 1 applicatio Documented by: Carvedilol (Carvedilol 3.125 Mg Tablet) 3.125 mg PO BID [facility] Last Admin: 08/01/20 09:34 Dose: 3.125 mg Documented by: Colchicine (Colchicine 0.6 Mg Tablet) 0.6 mg PO DAILY [facility] Last Admin: 11/23/20 09:34 Dose: 0.6 mg Documented by: Diltiazem HCl (Diltiazem Cd 120 Mg Capsule) 120 mg PO DAILY [facility] Last Admin: 08/01/20 09:34 Dose: 120 mg Documented by: Guaifenesin (Guaifenesin 10 Ml Udc (200mg/10ml)) 20 ml PO Q4H PRN PRN PRN Reason: COUGH Hydralazine HCl (Hydralazine 20 Mg/Ml Vial) 10 mg IV Q4H PRN PRN PRN Reason: SBP > 160 Levothyroxine Sodium (Levothyroxine 75 Mcg Tablet) 75 mcg PO MoTuWeThFrSa@0600 [facility] Last Admin: 08/01/20 05:19 Dose: 75 mcg Documented by: Magnesium Hydroxide (Magnesium Hydroxide 30 Ml Udc) 30 ml PO DAILY PRN PRN PRN Reason: Constipation Melatonin (Melatonin 3 Mg Tablet) 3 mg PO QHS PRN PRN PRN Reason: INSOMNIA Nitroglycerin (Nitroglycerin (Inpatient Use) 0.4 Mg Tab.Subl) 0.4 mg SUBLINGUAL Q5M PRN PRN Reason: CARDIAC/CHEST PAIN Nystatin (Nystatin Powder 15gm Bottle) 1 applic TOPICAL BID [facility]; Protocol Last Admin: 08/01/20 09:34 Dose: 1 applicatio Documented by: Ondansetron HCl (Ondansetron 4 Mg/2 Ml Vial) 4 mg IV Q8H PRN PRN PRN Reason: NAUSEA/VOMITING Oxycodone HCl (Oxycodone 5 Mg Tablet) 5 mg PO Q4H PRN PRN PRN Reason: Pain Score 4-5 Last Admin: 07/29/20 01:09 Dose: 5 mg Documented by: Pantoprazole Sodium (Pantoprazole Sodium 40 Mg Tablet) 40 mg PO BID [facility] Last Admin: 08/01/20 09:34 Dose: 40 mg Documented by: Paroxetine HCl (Paroxetine 10 Mg Tablet) 10 mg PO QHS [facility] Last Admin: 07/31/20 21:57 Dose: 10 mg Documented by: Potassium Chloride (Potassium Chloride 20 Meq Tablet) [facility] Prochlorperazine Edisylate (Prochlorperazine 10 Mg/2 Ml Vial) 5 mg IV Q4H PRN PRN PRN Reason: Breakthrough nausea/vomiting Psyllium Hydrophilic Mucilloid (Psyllium 1 Packet) 1 packet PO DAILY PRN PRN PRN Reason: Constipation Senna/Docusate Sodium (Senna/Docusate Sodium 1 Tablet) 2 tablet PO BID PRN PRN PRN Reason: Constipation Sodium Chloride (0.9% Saline Lock 10 Ml Syringe) 10 - 40 ml IV UD PRN PRN Reason: SALINE FLUSH Sodium Chloride (Sodium Chloride 0.65% 1 Wallback Wallback.Btl) 1 spray NASAL Q2H PRN PRN Reason: NASAL CONGESTION Throat Lozenges (Benzocaine/Menthol 1 Lozenge) 1 lozenge MUCOUS MEM Q2H PRN PRN PRN Reason: SORE THROAT Medical Necessity - Tobacco Use Smoking Status: Never smoker Assessment/Plan All Active Problems (Last Reviewed 03/19/20 @ 14:[address] Naina Llamas, DO) Acute pancreatitis (Acute) Nausea and vomiting (Acute) Sinus tachycardia seen on cardiac sonographer (Acute) COVID-19 (Resolved) Hyperglycemia (Acute) Upper GI bleeding (Acute) Acute blood loss anemia (Acute) Atrial fibrillation with rapid ventricular response (Acute) Dyspnea (Acute) Back pain (Acute) Debility (Acute) Shortness of breath (Acute) Left ankle sprain (Acute) Multiple falls (Acute) JESSICA (acute kidney injury) (Acute) Generalized weakness (Acute) UTI (urinary tract infection) (Acute) Bradycardia (Acute) Confusion (Resolved) Esophageal stricture (Resolved) Expressive aphasia (Resolved) Hypoxia (Resolved) 80-year-old female with acute pancreatitis of unknown etiology 1. Patient has CT scan with IV contrast over the weekend which did not show any pancreatic mass. It did show prominence of the common bile duct. MRCP was recommended. I discussed this with the patient. She does not want MRI at this time. I advised her that she should still have an outpatient MRCP if possible and if she reconsiders. I rechecked LFTs today which were normal once again. Advance diet and discharge if tolerates diet. Outpatient MRI if patient reconsiders and follow-up with me if she does agree to get the MRCP. Gilson Malhotra MD Pager: [facility] [address] [place] [address], [address] [place] [address] Office:
[2020-08-01 12:41] VITALS: BP 109/68; PULSE 102; RESP 18; TEMP 36.9; O2SAT 2
[2020-08-01 12:46] VITALS: RESP 18
--- NOTE | 2020-08-01 13:07 | DCINST_ITS ---
- Discharge Diagnoses Current Active Problems: Current Active and Chronic Problems (Last Reviewed 03/19/20 @ 14:[address] Naina Llamas, DO) Acute pancreatitis (Acute) Nausea and vomiting (Acute) Anemia (Chronic) Sinus tachycardia seen on monitor and storage bin tender (Acute) Hyperglycemia (Acute) Upper GI bleeding (Acute) Bilateral pulmonary embolism (Chronic) Dyspnea (Acute) Debility (Acute) DVT (deep venous thrombosis) (Chronic) Atrial fibrillation (Chronic) Chronic diastolic (congestive) heart failure (Chronic) COPD (chronic obstructive pulmonary disease) (Chronic) Generalized weakness (Acute) Hyperlipidemia (Chronic) Obstructive sleep apnea (Chronic) Carotid stenosis (Chronic) Chronic kidney disease (Chronic) Dementia (Chronic) Meningioma (Chronic) Chronic diastolic heart failure (Chronic) Paroxysmal atrial fibrillation (Chronic) Hyperparathyroidism (Chronic) Hypothyroidism (Chronic) Lymphomatoid papulosis (Chronic) Hypertension (Chronic) Right bundle branch block (Chronic) AV block, 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) GERD (gastroesophageal reflux disease) (Chronic) History of esophageal dilatation (Chronic) Anxiety and depression (Chronic) Thoracic aortic aneurysm (Chronic) 3.9 cm History of CVA (cerebrovascular accident) (Chronic) You will use the following diet at home:: No restrictions Your food should be the consistency of: Regular Your liquids should be the consistency of: Regular/Thin Discharge Activity: Return to Normal Activity Call your doctor if you observe: Fever of 101 or Higher, Shortness of breath Allergies/Adverse Reactions: Allergies adhesive Allergy (Verified 07/28/20 21:43) Rash irbesartan Allergy (Verified 07/28/20 21:43) Unknown solifenacin [From Vesicare] Allergy (Verified 07/28/20 21:43) Unknown sulindac [Sulindac] Allergy (Verified 07/28/20 21:43) Unknown lisinopril Adverse Reaction (Verified 07/28/20 21:43) Other COUGH losartan potassium [From Cozaar] Adverse Reaction (Verified 07/28/20 21:43) Other metoprolol Adverse Reaction (Verified 07/28/20 21:43) GI Upset ramipril [From Altace] Adverse Reaction (Verified 07/28/20 21:43) Other tramadol Adverse Reaction (Verified 07/28/20 21:43) Unknown Medications to take at Discharge Atorvastatin Calcium [Lipitor] 10 mg PO QHS 04/17/17 allopurinol 300 mg tablet 300 mg PO DAILY 03/03/20 Apixaban [Eliquis] 2.5 mg PO BID 04/03/20 Pantoprazole Sodium 40 mg PO DAILY 04/03/20 Paroxetine [Paxil] 10 mg PO QHS 04/03/20 Albuterol Aerosols [Ventolin Aerosols] 2.5 mg INHALATION Q6H PRN PRN #1 vial 04/04/20 furosemide 20 mg tablet 20 mg PO DAILY 04/20/20 Loperamide [Imodium] 2 mg PO Q6H PRN PRN 05/14/20 Potassium Chloride 10 meq PO BID 05/14/20 Diltiazem CD [Cardizem CD] 120 mg PO DAILY #30 cap 05/18/20 Acetaminophen 2 tab PO Q4H PRN PRN 05/21/20 Carvedilol [Coreg (Beta Ivan)] 3.125 mg PO BID #0 tab 05/23/20 Levothyroxine [Synthroid] 75 mcg PO MoTuWeThFrSa@0600 tab 05/23/20 Lactobacillus Acidophilus [Acidophilus] 1 ea PO DAILY 07/29/20 Vitamin E 200 unit PO DAILY 07/29/20 Zinc 50 mg PO DAILY 07/29/20 Primary Care Physician: Care Physician,No Primary [Primary Care Provider] - Test Results: Test results from this visit will be discussed in further detail at your follow- up appointment, if applicable. Please Follow Up With: Gilson Malhotra MD When: as needed Proposed Discharge Date: 08/01/20
--- NOTE | 2020-08-01 13:09 | DS.PCM_ITS ---
Discharge Date and Diagnosis - Problem List Patient Problems: Active and Suspected Problems (Last Reviewed 03/19/20 @ 14:[address] Naina Llamas DO) Acute pancreatitis (Acute) Nausea and vomiting (Acute) Sinus tachycardia seen on surveillance monitor (Acute) Dyspnea (Acute) Debility (Acute) Generalized weakness (Acute) Date of Admission: 07/28/20 Date of Discharge: 08/01/20 - Primary Discharge Diagnosis Acute Problems: Active Problems (Last Reviewed 03/19/20 @ 14:[address] Naina Llamas DO) Acute pancreatitis (Acute) Nausea and vomiting (Acute) Sinus tachycardia seen on surveillance monitor (Acute) Hyperglycemia (Acute) Upper GI bleeding (Acute) Dyspnea (Acute) Debility (Acute) Generalized weakness (Acute) - Secondary Discharge Diagnosis Chronic Problems: Chronic Problems (Last Reviewed 03/19/20 @ 14:[address] Naina Llamas DO) Anemia (Chronic) Pressure ulcer of right buttock, stage 2 (Chronic) Bilateral pulmonary embolism (Chronic) Chronic respiratory failure with hypoxia (Chronic) Gastric ulcer (Chronic) Stroke (Chronic) DVT (deep venous thrombosis) (Chronic) Atrial fibrillation (Chronic) Thoracic aortic aneurysm (Chronic) Chronic diastolic (congestive) heart failure (Chronic) COPD (chronic obstructive pulmonary disease) (Chronic) Gout (Chronic) Allergic rhinitis (Chronic) Hypokalemia (Chronic) Hyperlipidemia (Chronic) Obstructive sleep apnea (Chronic) Carotid stenosis (Chronic) Chronic kidney disease (Chronic) Dementia (Chronic) Meningioma (Chronic) Chronic diastolic heart failure (Chronic) Paroxysmal atrial fibrillation (Chronic) Diastolic CHF, acute (Chronic) Dyspnea on exertion (Chronic) Hyperparathyroidism (Chronic) Hypothyroidism (Chronic) Lymphomatoid papulosis (Chronic) Hypertension (Chronic) Obesity (Chronic) Right bundle branch block (Chronic) AV block, 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) GERD (gastroesophageal reflux disease) (Chronic) History of esophageal dilatation (Chronic) Anxiety and depression (Chronic) Thoracic aortic aneurysm (Chronic) 3.9 cm History of CVA (cerebrovascular accident) (Chronic) Hospital Course and Treatment Imaging Results: Clinical Impression(s) from Imaging Studies Acute Abdomen Series 07/28/20 22:30 IMPRESSION: 1. No acute cardiopulmonary abnormality is radiographically apparent. 2. No acute abdominal abnormality is radiographically apparent. at 2307 Reported and signed by: Carolann Peña MD Electronically Signed: Carolann Peña MD at 23:07 EST Tel , Service support , Abdomen/Pelvis CT 07/30/20 07:34 IMPRESSION: Nonspecific gastric and cecal wall thickening may indicate enteritis/colitis. Prominent common bile duct without definite stone or obstructing lesion identified. Consider MRCP for further evaluation. Small left effusion and bibasilar consolidation/atelectasis. Electronically Signed: Nicola Bentley, at 12:40 EST Tel , Service support , [facility] Operations: None Procedures: None Summary of Care Provided: The patient is a 80 year old F presents with abdominal pain. Patient was on the acute pancreatitis with a lipase of 16,510. CAT scan showed that she is status post cholecystectomy and dilated bile ducts but no choledocholithiasis. Patient's lipase went down 2 days later to 573 and patient has been feeling well since then. Patient was seen in consultation by general surgery and recommended MRCP. Patient declined. Patient is otherwise been doing well and tolerating diet. Patient will be discharged home in stable condition. Advised to follow- up with general surgery if she does have recurrent abdominal pain. [] Patient Problems: Active and Suspected Problems (Last Reviewed 03/19/20 @ 14:[address] Naina Llamas DO) Acute pancreatitis (Acute) Nausea and vomiting (Acute) Sinus tachycardia seen on surveillance monitor (Acute) Dyspnea (Acute) Debility (Acute) Generalized weakness (Acute) - Physical Exam Vitals/I&O's: Vital Signs Temp Pulse Resp BP Pulse Ox 36.9 C 102 H 18 109/68 2 08/01/20 12:41 08/01/20 12:41 08/01/20 12:46 08/01/20 12:41 08/01/20 12:41 Oxygen Flow Rate (L/min) 2 Oxygen Delivery Method Nasal Cannula Weight: 77.4 kg Body Mass Index (BMI) 32.9 Finger Stick Blood Glucose 132 Intake and Output for Last 24 Hours 07/30/20 07/31/20 08/01/20 23:59 23:59 23:59 Intake Total 2821.67 / 2821.67 2775 / 2775 760 / 760 Output Total 150 / 150 Balance 2671.67 / 2671.67 2775 / 2775 760 / 760 General: Alert, Cooperative, No apparent distress HEENT: Atraumatic, Normocephalic Oral: Moist Mucosa, No Gingival or Mucosal Lesions/ Ulcerations Neck: No Nodes, Thyroid Normal Size and Texture Lungs: Clear to auscultation, Normal air movement, No rhonchi, No wheeze Cardiovascular: Regular rate, Regular Rhythm, Normal S1, Normal S2 Abdomen: Bowel Sounds Present, Soft, Non Tender, Non-Distended Extremities: No edema, No Calf Tenderness Psych/Mental Status: Normal Affect, Appropriate Microbiology Past 72 Hours 07/31/20 00:40 Stool Enteric Bacteriology - Final 07/31/20 00:40 Stool C. difficile DNA Amplification - Final 07/29/20 09:50 Interface Orders SARS-CoV-2 Antigen (Rapid) - Final Laboratory Results 08/01/20 05:04: WBC 8.5, RBC 3.31 L, Hgb 10.7 L, Hct 33.1 L, MCV 100.0 H, MCH 32.3 H, MCHC 32.3, RDW Std Deviation 54.6 H, RDW Coeff of Cricket 14.9 H, Plt Count 218, MPV 12.0, Immature Gran % (Auto) 0.500, Neut % (Auto) 74.2 H, Lymph % (Auto) 13.7 L, [place] % (Auto) 9.6, Eos % (Auto) 1.8, Baso % (Auto) 0.2, Absolute Neuts (auto) 6.3, Absolute Lymphs (auto) 1.16, Nucleated RBC % 0 08/01/20 05:04: Sodium 143, Potassium 3.0 L, Chloride 112 H, Carbon Dioxide 25.0, Anion Gap 6, BUN 13, Creatinine 0.88, Estim Creat Clear Calc 60.22, Est GFR (MDRD) Af Amer 79, Est GFR (MDRD) Non-Af 65, BUN/Creatinine Ratio 14.7, Glucose 70 L, Calcium 9.3 08/01/20 05:04: Total Bilirubin 0.70, Direct Bilirubin 0.35 H, AST 13 L, ALT 12 L, Alkaline Phosphatase 127 H, Total Protein 4.8 L, Albumin 2.1 L, Globulin 2.7 Current Medications Acetaminophen (Acetaminophen 325 Mg Tablet) 650 mg PO Q6H PRN PRN PRN Reason: Pain Score 1-10/Temp > 100.7 F Last Admin: 07/29/20 19:38 Dose: 650 mg Documented by: Al Hydroxide/Mg Hydroxide (Mag Hydrox/Al Hydrox/Simeth 30 Ml Udc) 30 ml PO Q6H PRN PRN PRN Reason: Gastric Burning Albuterol Sulfate (Albuterol 2.5 Mg/3 Ml Vial.Neb.) 2.5 mg INHALATION Q2H PRN PRN PRN Reason: Dyspnea, wheezing Allopurinol (Allopurinol 300 Mg Tablet) 300 mg PO DAILY [facility] Last Admin: 08/01/20 09:34 Dose: 300 mg Documented by: Apixaban (Apixaban 2.5 Mg Tablet) 2.5 mg PO BID [facility] Last Admin: 08/01/20 09:34 Dose: 2.5 mg Documented by: Atorvastatin Calcium (Atorvastatin Calcium 10 Mg Tablet) 10 mg PO QHS [facility] Last Admin: 07/31/20 21:57 Dose: 10 mg Documented by: Calamine/Phenol (Menthol/Lanolin/Calamine/Znox 113 Gm Tube) 1 applic TOPICAL BID [facility]; Protocol Last Admin: 08/01/20 09:34 Dose: 1 applicatio Documented by: Carvedilol (Carvedilol 3.125 Mg Tablet) 3.125 mg PO BID [facility] Last Admin: 08/01/20 09:34 Dose: 3.125 mg Documented by: Colchicine (Colchicine 0.6 Mg Tablet) 0.6 mg PO DAILY [facility] Last Admin: 08/01/20 09:34 Dose: 0.6 mg Documented by: Diltiazem HCl (Diltiazem Cd 120 Mg Capsule) 120 mg PO DAILY [facility] Last Admin: 08/01/20 09:34 Dose: 120 mg Documented by: Guaifenesin (Guaifenesin 10 Ml Udc (200mg/10ml)) 20 ml PO Q4H PRN PRN PRN Reason: COUGH Hydralazine HCl (Hydralazine 20 Mg/Ml Vial) 10 mg IV Q4H PRN PRN PRN Reason: SBP > 160 Levothyroxine Sodium (Levothyroxine 75 Mcg Tablet) 75 mcg PO MoTuWeThFrSa@0600 [facility] Last Admin: 08/01/20 05:19 Dose: 75 mcg Documented by: Magnesium Hydroxide (Magnesium Hydroxide 30 Ml Udc) 30 ml PO DAILY PRN PRN PRN Reason: Constipation Melatonin (Melatonin 3 Mg Tablet) 3 mg PO QHS PRN PRN PRN Reason: INSOMNIA Nitroglycerin (Nitroglycerin (Inpatient Use) 0.4 Mg Tab.Subl) 0.4 mg SUBLINGUAL Q5M PRN PRN Reason: CARDIAC/CHEST PAIN Nystatin (Nystatin Powder 15gm Bottle) 1 applic TOPICAL BID [facility]; Protocol Last Admin: 08/01/20 09:34 Dose: 1 applicatio Documented by: Ondansetron HCl (Ondansetron 4 Mg/2 Ml Vial) 4 mg IV Q8H PRN PRN PRN Reason: NAUSEA/VOMITING Oxycodone HCl (Oxycodone 5 Mg Tablet) 5 mg PO Q4H PRN PRN PRN Reason: Pain Score 4-5 Last Admin: 07/29/20 01:09 Dose: 5 mg Documented by: Pantoprazole Sodium (Pantoprazole Sodium 40 Mg Tablet) 40 mg PO BID [facility] Last Admin: 08/01/20 09:34 Dose: 40 mg Documented by: Paroxetine HCl (Paroxetine 10 Mg Tablet) 10 mg PO QHS [facility] Last Admin: 07/31/20 21:57 Dose: 10 mg Documented by: Potassium Chloride (Potassium Chloride 20 Meq Tablet) [facility] Prochlorperazine Edisylate (Prochlorperazine 10 Mg/2 Ml Vial) 5 mg IV Q4H PRN PRN PRN Reason: Breakthrough nausea/vomiting Psyllium Hydrophilic Mucilloid (Psyllium 1 Packet) 1 packet PO DAILY PRN PRN PRN Reason: Constipation Senna/Docusate Sodium (Senna/Docusate Sodium 1 Tablet) 2 tablet PO BID PRN PRN PRN Reason: Constipation Sodium Chloride (0.9% Saline Lock 10 Ml Syringe) 10 - 40 ml IV UD PRN PRN Reason: SALINE FLUSH Sodium Chloride (Sodium Chloride 0.65% 1 Philo Philo.Btl) 1 spray NASAL Q2H PRN PRN Reason: NASAL CONGESTION Throat Lozenges (Benzocaine/Menthol 1 Lozenge) 1 lozenge MUCOUS MEM Q2H PRN PRN PRN Reason: SORE THROAT Discharge Diet: No Restrictions Discharge Activity: Return to Normal Activity Call your doctor if you observe: Fever of 101 or Higher, Shortness of breath Home Medications: Medications to take at Discharge Atorvastatin Calcium [Lipitor] 10 mg PO QHS 04/17/17 allopurinol 300 mg tablet 300 mg PO DAILY 03/03/20 Apixaban [Eliquis] 2.5 mg PO BID 04/03/20 Pantoprazole Sodium 40 mg PO DAILY 04/03/20 Paroxetine [Paxil] 10 mg PO QHS 04/03/20 Albuterol Aerosols [Ventolin Aerosols] 2.5 mg INHALATION Q6H PRN PRN #1 vial 04/04/20 furosemide 20 mg tablet 20 mg PO DAILY 04/20/20 Loperamide [Imodium] 2 mg PO Q6H PRN PRN 05/14/20 Potassium Chloride 10 meq PO BID 05/14/20 Diltiazem CD [Cardizem CD] 120 mg PO DAILY #30 cap 05/18/20 Acetaminophen 2 tab PO Q4H PRN PRN 05/21/20 Carvedilol [Coreg (Beta Ivan)] 3.125 mg PO BID #0 tab 05/23/20 Levothyroxine [Synthroid] 75 mcg PO MoTuWeThFrSa@0600 tab 05/23/20 Lactobacillus Acidophilus [Acidophilus] 1 ea PO DAILY 07/29/20 Vitamin E 200 unit PO DAILY 07/29/20 Zinc 50 mg PO DAILY 07/29/20 Primary Care Physician: Care Physician,No Primary [Primary Care Provider] - Please Follow Up With: Gilson Malhotra MD When: as needed Disposition: Home Minutes spent on discharge:: 32 Patient Condition:: Fair Medical Necessity - Tobacco Use Smoking Status: Never smoker Meaningful Use Info Meaningful Use Diagnoses (Choose all that apply): None applicable Inpatient E&M: 73537 Disch Hosp
--- NOTE | 2020-08-01 13:32 | NURSING ---
report called to nurse at [facility]
--- NOTE | 2020-08-01 14:08 | TREXTCAR_ITS ---
- Diet 08/01/20 10:56 Diet: Regular - General Is pt able to select menu?: No - Routine Orders/Code Status Code Status: [id number]-A - Therapies Extremity Affected:: Bilateral Lower Physical Therapy: Eval and Treat Occupational Therapy: Eval and Treat - Allergies/Procedures Done in Hospital Allergies/Adverse Reactions: Allergies adhesive Allergy (Verified 07/28/20 21:43) Rash irbesartan Allergy (Verified 07/28/20 21:43) Unknown solifenacin [From Vesicare] Allergy (Verified 07/28/20 21:43) Unknown sulindac [Sulindac] Allergy (Verified 07/28/20 21:43) Unknown lisinopril Adverse Reaction (Verified 07/28/20 21:43) Other COUGH losartan potassium [From Cozaar] Adverse Reaction (Verified 07/28/20 21:43) Other metoprolol Adverse Reaction (Verified 07/28/20 21:43) GI Upset ramipril [From Altace] Adverse Reaction (Verified 07/28/20 21:43) Other tramadol Adverse Reaction (Verified 07/28/20 21:43) Unknown Procedures: None - Type of Care/Length of Stay Estimated LOS: More Than 30 Days Type of Care Needed: Detention/Assisted Living Rehab Potential: Fair Prognosis: Fair - Additional Orders/Day of Discharge Day of Discharge: 08/01/20 - Dietary and Speech Recommendations Dietitian Recommendations/Changes: Rec MICHAEL Cardiac as pt medically able. Will provide ONS as indicated once diet advanced. - Follow Up Care Primary Care Physician: Care Physician,No Primary [Primary Care Provider] - Please Follow Up With: Gilson Malhotra MD When: as needed
--- NOTE | 2020-08-01 14:16 | CASEMGMT ---
Social Work Note Pt is returning to [facility] today. YIN placed a call to Nereyda at [facility] and updated her. Nereyda states pt's COVID test is fine for pt to return. YIN faxed discharge paperwork to [facility] including transfer to extended care facility, signed medication list, scripts, COVID screening tool and COVID test. Original in SNF folder and copy on pt's chart. YIN spoke with RN, pt can transport via wheelchair van. YIN accessed trip access and arranged transportation via wheelchair van for 3:00pm. Transportation form completed and placed on SNF folder and copy on pt's chart. YIN updated RN on transportation time. SW in to speak with pt. SW updated pt on discharge and transportation time. Pt states understanding. YIN spoke with RN. RN already called pt's son Prakash and updated him on discharge. Pt to call Prakash when she returns to [facility]. YIN placed a call to [facility] and spoke with Mireille, as Nereyda is not available, YIN updated Mireille that pt is being discharged today at 3:00pm. Mireille states understanding. 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
[2020-08-01 14:45] VITALS: BP 108/77; PULSE 100; RESP 18; TEMP 36.5; O2SAT 98
== END 2020-08-01 15:09 | disposition skilled nursing facility (03) | DRG 439 ==
LOC: ED 23:18 → MS3 23:43
PROVIDERS: Family Medicine; Surgery; Admitting Provider Family Medicine; Emergency Provider Emergency Medicine
DX: K85.90 Acute pancreatitis without necrosis or infection, unspecified (principal); I50.32 Chronic diastolic (congestive) heart failure; I13.0 Hypertensive heart and chronic kidney disease with heart failure and stage 1 through stage 4 chronic kidney disease, or unspecified chronic kidney disease; F03.91 Unspecified dementia, unspecified severity, with behavioral disturbance; J96.11 Chronic respiratory failure with hypoxia; J44.9 Chronic obstructive pulmonary disease, unspecified; F32.9 Major depressive disorder, single episode, unspecified; F41.9 Anxiety disorder, unspecified; K21.9 Gastro-esophageal reflux disease without esophagitis; E03.9 Hypothyroidism, unspecified; E78.5 Hyperlipidemia, unspecified; R73.9 Hyperglycemia, unspecified; G47.33 Obstructive sleep apnea (adult) (pediatric); N18.30 Chronic kidney disease, stage 3 unspecified; I48.0 Paroxysmal atrial fibrillation; E87.6 Hypokalemia; E66.9 Obesity, unspecified; M19.90 Unspecified osteoarthritis, unspecified site; Z86.711 Personal history of pulmonary embolism; Z86.19 Personal history of other infectious and parasitic diseases; Z86.718 Personal history of other venous thrombosis and embolism; Z68.34 Body mass index [BMI] 34.0-34.9, adult; Z66 Do not resuscitate
CPT/HCPCS: 36415; 74022; 74177; 80048; 80053; 80061; 80076; 83036; 83690; 83735; 85025; 87426; 87493; 87506; 93005; 97110; 97162; 97166; 97530; 97535; 99251; 99285; J7030; J7040; Q9967; A4216; G0463; J1940; J2405

== ENCOUNTER → 2021-05-11 16:36 | Outpatient (CLI) | payer MEDICARE, SELFPAY ==
[2021-05-11 20:02] LABS: M R Staph aureus DNA By PCR POSITIVE (Negative); Probe Check PASS; Staph aureus DNA By PCR POSITIVE (Negative)
== END ==
PROVIDERS: PCP Family Medicine; Referring Provider Podiatrist; Visit Provider Podiatrist
DX: M10.9 Gout, unspecified (principal); L03.115 Cellulitis of right lower limb; E11.9 Type 2 diabetes mellitus without complications
CPT/HCPCS: 87070; 87075; 87077; 87186; 87205; 87640

== ENCOUNTER 2021-05-26 09:34 | Outpatient (RCR) | payer MEDICARE, SELFPAY ==
[2021-05-26 10:20] VITALS: BP 119/71; PULSE 86; RESP 20; TEMP 36.2
--- NOTE | 2021-05-26 11:24 | PCM.WC.PN ---
History of Present Illness Date of Service: 05/26/21 Chief Complaint: Ulcer of right buttock History of Wound: Kalina is a pleasant 81 yo female who presents to the wound healing center for evaluation and treatment of a nonhealing ulcer of her right buttock. She has a chronic pressure ulcer of her right buttock that comes and goes. She has had this for about 1 year. She has been at [facility] for almost a year and spends significant amount of time sitting in a recliner. She does sleep in bed. She does try to offload the area by putting a small pillow under her hip/buttock to decrease pressure when it is painful. The skilled nursing has been using calmoseptine ointment to the area which has helped some but it is still present. She has no drainage from the ulcer and denies any odor or erythema. She does have urinary and bowel incontinence. Denies fever, chills. Objective Data Objective Data Vital Signs: Vital Signs Temp Pulse Resp BP 97.2 F L 86 20 H 119/71 05/26/21 10:20 05/26/21 10:20 05/26/21 10:20 05/26/21 10:20 Physical Exam Const alert, oriented x3 and no apparent distress General Appearance: cooperative and anxious Nutritional Appearance: overweight HEENT normocephalic and head/scalp atraumatic Head and Scalp: normal to inspection and normocephalic Lymph Lymphatic: no lymphadenopathy noted Resp normal respiratory effort Effort and Inspection: able to speak in complete sentences Cardio regular rate and regular rhythm Skin General Skin Exam: dry skin and erythema Neuro Speech: speech normal Psych thought process normal and cooperative Mood & Affect: sad and tearful Debridement Note Debridement Note Wound debrided: right buttock Laterality: Right No debridement was completed: No debridement was completed today (no slough or skin breakdown present) Post-Debridement Measurements and Additional Note: Post-Debridement Measurements/Treatment HALEY - Nurse 1 - General Ulcer Assessment Start: 05/26/21 10:20 Freq: Status: Active Protocol: KEYANNA Activity Type Activity Date Activity User E-Sign Co-Sign Detail Recorded Client Recorded Date Recorded By Document 05/26/21 10:20 ELLI [id number] 05/26/21 10:23 DL 05/26/21 10:20 WC - Today's Visit Information Type of service Initial Visit Arrival Mode Wheelchair Transfer Assistance Manual Transfer Assist (Other) x1 Patient Identification Verified (Name & Yes ) Patient Requires Transmission-Based No Precautions Vital Signs Temperature (97.8 F-99.1 F) 97.2 F L Temperature Source Temporal Pulse Rate (60-100) 86 Pulse Location Monitor Respiratory Rate (12-18) 20 H Respiratory rate source Observation Blood Pressure (90/60-120/80) 119/71 Blood Pressure Mean (mm Hg) 87 Source Monitor Pain Scale: 0-10 Numeric Is Patient Pain Free? Yes WC - Nurse 1 - General Ulcer Measurement Start: 05/26/21 10:20 Freq: Status: Active Protocol: Activity Type Activity Date Activity User E-Sign Co-Sign Detail Recorded Client Recorded Date Recorded By Document 05/26/21 10:20 DL [id number] 05/26/21 10:23 DL 05/26/21 10:20 Wound Center Nurse 1 R buttocks -Current Size (cm) - Length 0.1 -Current Size (cm) - Width 0.1 -Current Size (cm) - Depth 0.1 -Total Square Cm 0.01 -Photo Taken Yes -Exudate Amt None Present -Wound Margin Flat & Intact -Granulation Amt Large (67-100%) -Granulation Quality [place] -Necrosis Amt None Present (0 %) -Texture (Neha-wound Skin Appearance) Rash -Moisture (Neha-wound Skin Appearance) No Abnormality -Color (Neha-wound Skin Appearance) No Abnormality -Temperature (Neha-wound Skin No Abnormality Appearance) (Pt Warm) -Tenderness on Palpation (Neha-wound No Skin Appearance) -Ulcer Cleansing Rinsed/ Irrigated with Saline -Foul Odor after Cleansing No WC - Nurse 2 - General Ulcer CM Notes Start: 05/26/21 10:20 Freq: Status: Active Protocol: Activity Type Activity Date Activity User E-Sign Co-Sign Detail Recorded Client Recorded Date Recorded By Document 05/26/21 10:46 MW [id number] 05/26/21 10:52 MW 05/26/21 10:46 Wound Center Nurse 2 -Time 10:50 -Correct Patient Yes -Correct Side, Site, Position Yes -Correct Procedure Yes -Procedure Performed No -Post Debridement (cm) - Length 0 -Post Debridement (cm) - Width 0 -Post Debridement (cm) - Depth 0 -Total Square (Post) (cm) 0 -Wound/Ulcer Outcome Healed- Epithelialized Pain Scale: 0-10 Numeric Is Patient Pain Free? Yes Assessment/Plan Assessment/Plan (1) Debility: CODE(S): R53.81 - Other malaise (2) Back pain: CODE(S): M54.9 - Dorsalgia, unspecified QUALIFIERS: Back pain laterality: unspecified Back pain location: low back pain Chronicity: chronic Sciatica presence: unspecified whether sciatica present Qualified Code(s): M54.5 - Low back pain; G89.29 - Other chronic pain (3) Chronic diastolic (congestive) heart failure: CODE(S): I50.32 - Chronic diastolic (congestive) heart failure (4) COPD (chronic obstructive pulmonary disease): CODE(S): J44.9 - Chronic obstructive pulmonary disease, unspecified QUALIFIERS: COPD type: unspecified COPD Qualified Code(s): J44.9 - Chronic obstructive pulmonary disease, unspecified (5) History of CVA (cerebrovascular accident): CODE(S): Z86.73 - Personal history of transient ischemic attack (TIA), and cerebral infarction without residual deficits PLAN: Kalina's buttock ulcer was evaluated but there was no slough or devitalized tissue to debride. Advised to continue to use calmoseptine and apply optifoam with border to help offload the ulcer. Encouraged offloading of the buttock for healing and adequate protein intake. She will be discharged and follow up as needed in the future if the ulcer opens again.
== END 2021-05-26 11:30 | disposition home or self-care (01) ==
LOC: WC 09:34
PROVIDERS: PCP Family Medicine; Visit Provider Family Medicine
DX: L89.319 Pressure ulcer of right buttock, unspecified stage (principal); R15.9 Full incontinence of feces; R32 Unspecified urinary incontinence; J44.9 Chronic obstructive pulmonary disease, unspecified; I50.32 Chronic diastolic (congestive) heart failure; M54.5 Low back pain
CPT/HCPCS: 99213; G0463

== ENCOUNTER → 2021-06-15 15:51 | Outpatient (CLI) | payer MEDICARE, SELFPAY ==
--- NOTE | 2021-06-15 16:45 | MRI_ITS ---
STUDY: MRI RIGHT FOREFOOT WITHOUT CONTRAST REASON FOR EXAM: Female, 81 years old. 1st MT phalangeal joint,abcess, osteo TECHNIQUE: Standardized fat and water weighted pulse sequences were obtained in all 3 orthogonal planes. COMPARISON: None. FINDINGS: Medial plantar surface ulceration with organized fluid collection at the plantar surface measuring approximately 2.6 cm x 1.6 cm (sagittal image 8 series 4 and short axis image 11). Diffuse soft tissue swelling/cellulitis. Diffuse muscle atrophy with myositis/muscle edema. Mild/moderate tarsometatarsal joint arthrosis. Moderate navicular cuneiform joint arthrosis. Mild talonavicular arthrosis. Extensive abnormal T1 signal at the first metatarsal head (sagittal image 5 series 3). Large subcortical cyst formation at the medial cuneiform (sagittal image 8 series 3). Severe first metatarsophalangeal and metatarsal sesamoid joint arthrosis. Mild first interphalangeal joint arthrosis. Hallux valgus deformity. Advanced second metatarsophalangeal joint arthrosis with metatarsal head flattening/avascular necrosis (long axis image 11). Normal third, fourth and fifth metatarsophalangeal joints. Mild/moderate joint space narrowing at the second through fifth digits. Lisfranc ligament intact. Flexor tendons intact with mild first digit flexor tenosynovitis. Extensor tendons intact. 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
== END ==
PROVIDERS: PCP Family Medicine; Visit Provider Podiatrist
DX: M86.9 Osteomyelitis, unspecified (principal); L03.115 Cellulitis of right lower limb; L97.512 Non-pressure chronic ulcer of other part of right foot with fat layer exposed; M10.9 Gout, unspecified
CPT/HCPCS: 73718

== ENCOUNTER → 2021-06-21 06:15 | Outpatient (CLI) | payer MEDICARE, SELFPAY ==
[2021-06-20 21:11] LABS: M R Staph aureus DNA By PCR POSITIVE (Negative); Probe Check PASS; Staph aureus DNA By PCR POSITIVE (Negative)
== END ==
PROVIDERS: PCP Family Medicine; Referring Provider Podiatrist; Visit Provider Podiatrist
DX: Z00.00 Encounter for general adult medical examination without abnormal findings (principal)
CPT/HCPCS: 87070; 87075; 87077; 87186; 87205; 87640

== ENCOUNTER 2021-06-30 11:36 | Day surgery (SDC) | payer MEDICARE, SELFPAY ==
[2021-06-30] VITALS (7 sets, daily range): BP systolic 113–124; BP diastolic 59–86; PULSE 69–88; RESP 14–16; TEMP 36.2–37.6; O2SAT 94–100; BMI 29.7
[2021-06-30] MEDS: Lactated Ringers 1,000 ML 100 ML IV (12:23)
--- NOTE | 2021-06-30 13:33 | RAD_ITS ---
STUDY: X-RAY - RIGHT FOOT CLINICAL: Female, 81 years old. 4 mini c arm images, right foot debridement, first ray resection/amputation. 4 seconds, 0.0189 mGy TECHNIQUE: 4 fluoroscopic view(s) of the foot. COMPARISON: MRI of the right foot dated June 25, 2021 FINDINGS: The patient is status post surgical resection of the distal two thirds aspect of the first metatarsal bone as well as the phalanges. The remaining visualized osseous structures are intact. RAD/Foot 2 Views IMPRESSION: 1. 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 Electronically Signed: Miguel Guardado MD at 18:17 EDT , Service support ,
--- NOTE | 2021-06-30 14:00 | BON_PTH ---
PATIENT: SANTY DE LA CRUZ LOC: [facility] [place] U#:[id number] AGE/SX: 81/F ROOM: RE06/30/[address]: Dr. Genoveva Topete DPM : [id number] BED: DIS: 06/30/2021 SPEC #: [id number] RECD: 06/30/21 15:51 STATUS: LISA REChristine #: [id number] BROOK: 06/30/21 14:[address]: Genoveva Topete DEPT: SURGICAL PATHOLOGY RECD BY: Germaine Saini ENTERED: 07/03/21 14:05 SP TYPE: Bone OTHR DR: Dr. Wyatt Obrien MD Tissues: A - Bone of foot, NOS B - Bone of foot, NOS Procedures: Decalcification bone/plaque Surgery Specimen Level III Surgery Specimen Level IV HEADER OPERATION: Debridement of nonviable soft tissue and bone PRE-OP DIAGNOSIS: Chronic ulcer, osteomyelitis, abscess/cellulitis TISSUE SUBMITTED: A ? Clearance fragment right first metatarsal, B ? Right foot soft tissue and bone MICROSCOPIC DIAGNOSIS A. Clearance fragment right first metatarsal: A piece of bone, negative for acute osteomyelitis. B. Right foot soft tissue and bone, amputation: Focal ulceration, acute inflammation and granulation tissue reaction and reactive changes. Epidermal inclusion cyst. Bone with chronic inflammation and foreign body giant cell reaction, minimal acute osteomyelitis. SJ:rg 07/05/2021 COMMENT Detached piece of bone shows foreign body giant reaction to weakly polarizable foreign material. Case has been reviewed in consultation with Dr. Lopez who concurs with the above diagnosis. IDC:AM MICROSCOPIC DESCRIPTION Slides are reviewed. GROSS DESCRIPTION A - Received in fixative is one container labeled with the patient's name and designated clearance fragment right first metatarsal. The specimen consists of one fragment of bone measuring 0.7 x 0.5 x 0.3 cm. The entire specimen is submitted in one cassette after decalcification. B - Received in fixative is one container labeled with the patient's name and designated right foot soft tissue and bone. The specimen consists of a portion of toe measuring 6 x 3 x 4 cm. The nail appears unremarkable. The piece of skin is partially sectioned on the plantar surface of the toe. A focal area of ulceration is noted on the plantar surface of the toe measuring 1 cm in greatest dimension. Also present in the container is a detached piece of bone measuring 4 x 3 x 2.5 cm. [place] Tender sections are submitted in three cassettes as follows: 1 - ulcerated area, 2 & 3 - bone after decalcification. / SJ:rg 07/03/2021 TC:3 CPT: 44552, 92865, 84943 x2
--- NOTE | 2021-06-30 14:12 | EX.PCM.DISCH ---
Discharge Instructions Diet Discharge Diet: No restrictions Activity Discharge Activity: May Not Drive, May Not Shower and Use Walker Ice area for (Minutes): 15 (Apply behind knee if needed for pain control. Do not apply directly to the foot.) Weight Bearing Status: No weight bearing Keep extremity elevated above heart level: Right Leg Dressing / Incision Call your doctor if your incision/area has: Continuous Slow Oozing, Sudden Increased Bleeding, Increased Pain/ Swelling, Increased Redness, Foul Smelling Discharge and Swelling at the incision site Call your doctor if you observe: Fever of 101 or Higher, Calf discomfort and Uncontrolled pain Cleanse incision/area with: Keep Dressing Clean & Dry Follow Up Care Please Follow Up With: Genoveva Topete DPM When: Follow up [facility]. Call [phone] sooner if questions or concerns. Test Results: Test results from this visit will be discussed in further detail at your follow-up appointment, if applicable. Discharge Plan Admission Attending Provider: Genoveva Topete Primary Care Provider: Wyatt Obrien Discharge Orders/Prescriptions Prescriptions: No Action allopurinol 300 mg tablet 300 mg PO DAILY RF: 0 atorvastatin 10 MG tablet 10 mg PO QHS RF: 0 paroxetine HCl 10 MG tablet 20 mg PO QHS RF: 0 pantoprazole 40 MG tablet,delayed release (DR/EC) 40 mg PO DAILY RF: 0 apixaban 2.5 MG tablet 2.5 mg PO BID RF: 0 albuterol sulfate 2.5 MG/3 ML solution for nebulization 2.5 mg INHALATION Q6H PRN PRN (Reason: Dyspnea) Qty: 1 RF: 0 loperamide 2 MG capsule 2 mg PO Q6H PRN PRN (Reason: Diarrhea) RF: 0 potassium chloride 10 MEQ tablet extended release 10 meq PO BID RF: 0 diltiazem HCl 120 MG capsule 120 mg PO DAILY Qty: 30 RF: 1 carvedilol 3.125 MG tablet 3.125 mg PO BID Qty: 0 RF: 0 polyethylene glycol 3350 [Miralax] 17 gram Powder In Packet 17 g PO BID RF: 0 hydrocodone-acetaminophen [[place]] 5-325 mg Tablet 1 tab PO Q8H PRN (Reason: Pain) RF: 0 montelukast [Singulair] 10 mg Tablet 10 mg PO QHS RF: 0 doxycycline hyclate 100 mg Tablet 100 mg PO BID RF: 0 Maxitrol Drops,Suspension 1 drp OPHTHALMIC (EYE) TID RF: 0 melatonin 5 mg Capsule 5 mg PO QHS RF: 0 psyllium husk [Metamucil] 0.4 gram Capsule 0.4 g PO DAILY RF: 0 levothyroxine 75 MCG tablet 88 mcg PO DAILY RF: 0 acetaminophen [Tylenol Ex Str Rapid Release] 500 mg Tablet 500 mg PO Q6H PRN (Reason: Pain) RF: 0 Lactobacillus acidophilus Capsule 10,000 mmu cells PO DAILY RF: 0 furosemide 20 mg tablet 20 mg PO DAILY RF: 0 Disposition Discharge Orders: Discharge Patient (Routine); Ordered 06/30/21 Ordered By: Dr. Genoveva Topete
[2021-06-30] MEDS: Bupivacaine Mpf 0.5% 30 ML VIAL (14:40)
[2021-06-30] MEDS: Lidocaine 1% (30 ml sdv) 30 ML Vial (14:40)
[2021-06-30] MEDS: Cefazolin 2 GM in 0.9% Normal Saline 100 ML IV (15:01)
--- NOTE | 2021-06-30 15:25 | OP.PCM_ITS ---
Problems Associated Problem List Diagnoses (1) Non-pressure chronic ulcer of other part of right foot with fat layer exposed: (2) Osteomyelitis, unspecified: (3) Cellulitis of right lower limb: Report of Operation Date of Procedure: 06/30/21 Pre-Operative Diagnosis: right foot osteomyelitis with chronic foot ulcer Post-Operative Diagnosis: right foot osteomyelitis with chronic foot ulcer Surgery/Procedure Performed:: first ray resection, right foot Description of Surgical Findings:: Hemostasis: Right ankle tourniquet, 250 mmHg, 9 minutes materials: 3-0 Vicryl, 2-0 and 3-0 nylon The patient tolerated the procedure and anesthesia well. The patient was transported to the PACU with vital signs stable and vascular status intact to the surgical limb. To ice and elevate for pain and inflammation management. Postoperative x-rays were reviewed prior to leaving the operating room. Adequate amputation including a first ray resection is noted without acute injuries, foreign body or soft tissue emphysema. Postoperative orders were entered electronically. Surgeon: Yoselyn,Genoveva dry man: None (Aristeo Cruz DPM, PGY1) Type of Anesthesia: Local (preoperative: 1:1 mix of 1% lidocaine plain and 0.5% marcaine plain first ray block fashion right foot) and MAC Specimen's removed: 1. soft tissue and bone right foot sent to pathology 2. soft tissue and bone right foot sent to microbiology (aerobic, anearobic, acid fast, fungal) 3. first metatarsal clearance fragment to sent pathology 4. first metatarsal clearance fragment sent to microbiology (aerobic, anearobic, acid fast, fungal) Drains: none Estimated Blood Loss (mL): 100 mL Description of Procedure: Indications: This 81-year-old female with significant past medical history of atrial fibrillation, hyplipidemia, CPD, hypothyroidism, anemia, anemia, chronic kidney disease, depression,h/o stroke, hypertension, on chronic anticoagulation medication has been treated for chronic nonhealing ulcer of the plantar medial right foot. She is recently known to me in the outpatient setting and was previously undergoing long-term wound management by a groundwater monitoring technician at a different facilility. She has tried offloading, periodic antibiotics, and local dressing changes. She has palpable pulses. She does have some altered sensation however appears to have epicritic sensation intact. She has significant forefoot de formities including recurrent bunion with dorsal contraction of the hallux and all lesser toes. She has had intermittent purulence and infection to the plantar medial foot ulcer. This has recently resolved with a round of oral antibiotics, doxycycline. This addressed her previous MRSA positive wound cultures. Most recent x-rays demonstrate degeneration of the first metatarsophalangeal joint and forefoot deformities without soft tissue emphysema. Recent MRI demonstrates evidence of chronic osteomyelitis of the first metatarsal head without any acute abscess formation or acute osteomyelitis . Preoperative H&P were reviewed including her diagnostic data including labs without gross abnormalities. Her EKG demonstrates abnormal findings and this is consistent with her prior myocardial infarction and atrial fibrillation. She was cleared by both her medical doctor that he is seeing her at [facility] and also her assistant administrator, Dr. Vanegas. It is noted her last EF on file was over 60%. Preoperative indications, planned procedure, benefits, risk, anticipated healing time and management were reviewed. The patient understands and elects proceed with surgery at this time. No guarantees were made. The patient understands risk and complications include but are not limited to following: pain, swelling, scarring, need for further surgery, tendon contracture, transfer lesion, arthritis, need for further surgery, delayed or nonhealing, infection, blood clot, allergic reaction, loss of limb, function, or life. The informed surgical limb and consent were signed. I answered all the patient's questions. The patient also understands there is an inherent risk with being in the hospital and undergoing a procedure during the time of COVID-19 pandemic. The patient understands precautions are being taken to prevent transmission. This patient understands the benefits and risks of having a procedure at this time versus waiting in which the benefits are reasonable at this time. Procedure in detail: The patient was transported to the operating room via cart and placed on the operating room table in the supine position. Final verification of the patient, surgery, limb designation was confirmed via the timeout procedure. The anesthesia team initiated MAC anesthesia. I administered the local anesthetic. Her antibiotics were held until the clearance fragments were obtained. The right lower extremity was prepped and draped in the usual aseptic manner. [place] exsanguination was performed the tourniquet was inflated at this time. Surgery began the following manner: Attention was first directed to the medial right foot in which a fishmouth incision was made encompassing the first metatarsal head, hallux, and plantar ulcer site down to bone. Blunt dissection was performed to bone and the hallux was disarticulated at the first metatarsophalangeal joint. This was removed from the table in total. Care was taken to identify, protect and retract all neurovascular structures of interest at this point and the remainder of surgery. Next, a sagittal saw was used to excise a portion of the first metatarsal with the suspected osteomyelitis. Care was taken to level this bone to reduce clinical pressure sites in the future. This was sent to microbiology and pathology. A venous tourniquet was suspected and the tourniquet was deflated with improved hemostasis. Electrocauterization and direct pressure were used to maintain hemostasis. One stick tie was placed to the intermetatarsal artery also. Copious saline irrigation was performed. At this time, clean adjacent drapes, gloves and surgical instruments were utilized to obtain a clearance fragment. The clearance fragment was sent to both microbiology and pathology. At this time, the antibiotics were administered and intravenous manner. Intraoperative fluoroscopy was utilized to confirm adequate amputation status. No soft tissue emphysema, foreign body or acute injuries were noted. No pulsatile bleeding was noted and brisk capillary refill time was noted to the amputation boundaries and also to the remaining digits of the right foot. Deep closure was performed with Vicryl suture with care being taken to avoid leaving any residual space. The skin was reapproximated utilizing nylon suture with horizontal mattress, vertical mattress and simple suture techniques. No touch technique was utilized. The postoperative dressing consisting of Adaptic, Betadine, 4 x 4 gauze, abdominal pad, Kerlix, and Ravinder wrap were applied. Post procedure: The patient tolerated the procedure and anesthesia well. The patient was transported to the PACU with vital signs stable and vascular status intact to the surgical limb. To ice and elevate for pain and inflammation management. Postoperative x-rays were reviewed prior to leaving the operating room as noted. Postoperative pain medication will be ordered for when she returns to [facility] this evening. To maintain a strict nonweightbearing status with the use of a walker or wheelchair. She does not need to wear the cam walker boot in the immediate postoperative setting. Postoperative orders were entered electronically. Genoveva Topete DPM, [facility] Grafts/Implants Used: none Complications none Admit VTE Documentation VTE Present on Admission: No VTE Mechan Device Prophylaxis: SCD's VTE Pharm Prophylaxis ordered?: No Reason prophylaxis not ordered:: Procedure Not Indicated (will resume anticoagulation medication tomorrow)
== END 2021-06-30 17:14 | disposition home or self-care (01) ==
LOC: SDC 11:37 → AC 11:39
PROVIDERS: PCP Family Medicine; Referring Provider Podiatrist; Visit Provider Podiatrist
PROC: (CPT 28805; principal; 2021-06-30 13:45)
DX: L97.512 Non-pressure chronic ulcer of other part of right foot with fat layer exposed (principal); M86.171 Other acute osteomyelitis, right ankle and foot; L03.115 Cellulitis of right lower limb; E03.9 Hypothyroidism, unspecified; N18.9 Chronic kidney disease, unspecified; I13.0 Hypertensive heart and chronic kidney disease with heart failure and stage 1 through stage 4 chronic kidney disease, or unspecified chronic kidney disease; I50.32 Chronic diastolic (congestive) heart failure; F03.90 Unspecified dementia, unspecified severity, without behavioral disturbance, psychotic disturbance, mood disturbance, and anxiety; M19.90 Unspecified osteoarthritis, unspecified site; E78.5 Hyperlipidemia, unspecified; K21.9 Gastro-esophageal reflux disease without esophagitis; E21.3 Hyperparathyroidism, unspecified; M10.9 Gout, unspecified; G47.33 Obstructive sleep apnea (adult) (pediatric); I48.0 Paroxysmal atrial fibrillation; Z79.01 Long term (current) use of anticoagulants; Z86.73 Personal history of transient ischemic attack (TIA), and cerebral infarction without residual deficits; Z79.899 Other long term (current) drug therapy; Z79.890 Hormone replacement therapy
CPT/HCPCS: 01480; 28820; 73620; 76000; 87015; 87070; 87075; 87102; 87116; 87176; 87205; 87206; 88304; 88305; 88311; J7120; J2405

== ENCOUNTER 2021-11-08 12:48 | Outpatient (CLI) | payer MEDICARE, SELFPAY ==
--- NOTE | 2021-11-08 12:53 | BI_ITS ---
MAMMOGRAPHY - BILATERAL SCREENING REASON FOR EXAM: Female, 81 years old. Routine annual screening examination. PERTINENT HISTORY: Non-contributory. TECHNIQUE: Digital bilateral breast neal (3D mammographic acquisition) in the CC and MLO projections. 2-D mediolateral oblique (MLO) and craniocaudad (CC) views of both breasts were obtained. CAD: Full Field Digital Mammography with Computer Added Detection was performed. COMPARISON: Comparison is made with prior study dated 10/01/2019. FINDINGS: Breast Composition: There are scattered areas of fibroglandular density. There are no dominant masses or suspicious calcifications. No other significant abnormalities are identified. There has been no significant change since the prior study. BI/SCREENING MAMM (CAD), BILAT IMPRESSION: Stable bilateral screening mammogram. Yearly follow-up mammogram recommended. (A) ASSESSMENT CATEGORY: BIRADS Category 1: Negative. A letter regarding these results will be sent to the patient by the facility within 30 days. Approximately 10% of breast cancers are not detected by mammography. A normal mammogram should not delay biopsy of a clinically suspicious abnormality. [id number] Electronically Signed: Bharath Barclay MD at 14:05 EST ,
== END 2021-11-08 23:59 | disposition home or self-care (01) ==
LOC: OPBI 12:51
PROVIDERS: PCP Family Medicine; Visit Provider Obstetrics & Gynecology
DX: Z12.31 Encounter for screening mammogram for malignant neoplasm of breast (principal)
CPT/HCPCS: 77067

== ENCOUNTER 2022-01-27 20:05 | Emergency (ER) | payer MEDICARE, MEDICAID, SELFPAY ==
[2022-01-27 20:08] VITALS: BP 134/88; PULSE 98; RESP 14; TEMP 36.7; O2SAT 98; BMI 30.2
--- NOTE | 2022-01-27 20:52 | EX.ED.DYSGE1 ---
HPI History of Present Illness Chief Complaint: Rash Informant: patient Onset/Context/Timing Onset: Weeks (2) Context: Gradual Onset Timing: Continuous Quality: Pruritic Location: Bilateral upper and lower extremities Worsened by: Nothing Relieved by: Nothing Narrative Narrative: Patient presents with a rash that has been constant for the past 2 weeks. Patient states it began on her upper extremities and is now over the lower extremities. Patient states the rash is pruritic. Patient states it is mainly over the hands and forearms and bilateral lower legs. Patient states nothing makes it better and nothing makes it worse. Patient denies any new soaps or shampoos. Patient denies any new laundry detergents. Patient denies any new foods. Patient denies any difficulty breathing or difficulty swallowing. [facility] Medical History Acute blood loss anemia Acute pancreatitis Anxiety Anxiety and depression Arthritis AV block, 1st degree Back pain Cardiology follow-up encounter Carotid stenosis Chronic diastolic heart failure Chronic kidney disease COPD (chronic obstructive pulmonary disease) COVID-19 Dementia Depression Diastolic CHF, acute Dyspnea on exertion Essential hypertension Gastric reflux GERD (gastroesophageal reflux disease) Gout History of amputation of great toe History of atrial fibrillation History of CHF (congestive heart failure) History of CVA (cerebrovascular accident) History of echocardiogram History of renal disease History of stress test Hyperparathyroidism Hypertension Hypothyroidism Loss of hearing Lymphomatoid papulosis Meningioma Nausea and vomiting Non-smoker Obesity Obstructive sleep apnea On home oxygen therapy Osteoarthritis Paroxysmal atrial fibrillation Pressure ulcer Pressure ulcer of right buttock, stage 2 Pure hypercholesterolemia Right bundle branch block Stroke/cerebrovascular accident Thoracic aortic aneurysm Thyroid disease Upper GI bleeding Uses wheelchair UTI (urinary tract infection) Home Medications atorvastatin 10 mg PO QHS 04/17/17 [History Last Taken 07/28/20] apixaban 2.5 mg PO BID 04/03/20 [History Last Taken 06/27/21] pantoprazole 40 mg PO DAILY 04/03/20 [History Last Taken 07/28/20] paroxetine HCl 20 mg PO QHS 04/03/20 [History Last Taken 07/28/20] albuterol sulfate 2.5 mg INHALATION Q6H PRN PRN #1 vial 04/04/20 [Rx Last Taken Unknown] furosemide 20 mg tablet 20 mg PO DAILY 04/20/20 [History Last Taken 07/28/20] loperamide 2 mg PO Q6H PRN PRN 05/14/20 [History Last Taken Unknown] potassium chloride 10 meq PO BID 05/14/20 [History Last Taken 07/28/20] diltiazem HCl 120 mg PO DAILY #30 cap 05/18/20 [Rx Last Taken 07/28/20] carvedilol 3.125 mg PO BID #0 tab 05/23/20 [Rx Last Taken 07/28/20] Lactobacillus acidophilus 10,000 mmu cells PO DAILY 06/27/21 [History Last Taken Unknown] acetaminophen [Tylenol Ex Str Rapid Release] 500 mg PO Q6H PRN 06/27/21 [History Last Taken Unknown] hydrocodone-acetaminophen [[place]] 1 tab PO Q8H PRN 06/27/21 [History Last Taken Unknown] melatonin 5 mg PO QHS 06/27/21 [History Last Taken Unknown] montelukast [Singulair] 10 mg PO QHS 06/27/21 [History Last Taken Unknown] polyethylene glycol 3350 [Miralax] 17 g PO BID 06/27/21 [History Last Taken Unknown] psyllium husk [Metamucil] 0.4 g PO DAILY 06/27/21 [History Last Taken Unknown] allopurinol 100 mg tablet 100 mg PO DAILY tab 11/20/21 [History Last Taken Unknown] artificial tears(mcrvhuh-[id number]) 0.1 %-0.3 %-0.2 % eye drops 1 drp OPHTHALMIC (EYE) Q2H PRN ml 11/20/21 [History Last Taken Unknown] levothyroxine 88 mcg tablet 88 mcg PO DAILY tab 11/20/21 [History Last Taken Unknown] triamcinolone acetonide 1 applic TOPICAL BID #15 g 01/28/22 [Rx Last Taken Unknown] Allergy/AdvReac Type Severity Reaction Status Date / Time adhesive Allergy Rash Verified 01/27/22 20:07 irbesartan Allergy Unknown Verified 01/27/22 20:07 solifenacin [From Vesicare] Allergy Unknown Verified 01/27/22 20:07 sulindac [Sulindac] Allergy Unknown Verified 01/27/22 20:07 lisinopril AdvReac Other Verified 01/27/22 20:07 losartan potassium AdvReac Other Verified 01/27/22 20:07 [From Cozaar] metoprolol AdvReac GI Upset Verified 01/27/22 20:07 ramipril [From Altace] AdvReac Other Verified 01/27/22 20:07 tramadol AdvReac Unknown Verified 01/27/22 20:07 Family History Father CVA (cerebral vascular accident) Mother CAD (coronary artery disease) Congestive heart failure Surgical History H/O total knee replacement History of carpal tunnel surgery of right wrist History of esophageal dilatation History of esophagogastroduodenoscopy (EGD) History of incisional hernia repair History of total hip replacement Hx of cholecystectomy Hx of hernia repair Hx of tonsillectomy Hx of tubal ligation Social History Smoking Status: Never smoker alcohol intake: never substance use type: does not use caffeine: No what type of physical activity do you participate in: walking ROS ROS ED Constitutional Constitutional ED: Denies chills or fever(s) Eyes Eyes: Denies blurry vision or change in vision ENT ENT ED: Denies rhinorrhea or sore throat Cardiovascular Cardiovascular: Denies chest pain or palpitations Respiratory/Chest Respiratory/Chest: Reports cough; Denies dyspnea Gastrointestinal Gastrointestinal: Denies nausea or vomiting Genitourinary Genitourinary ED: Denies dysuria or hematuria Musculoskeletal Musculoskeletal: Reports back pain; Denies neck pain Integumentary Reports rash; Denies abscess Neurologic Neurologic: Denies headache(s) or weakness Allergic/Immunologic Allergic/Immunologic ED: Denies mouth swelling or urticaria EXAM Physical Exam Const Vital Signs: 01/27/22 20:08 Temperature 98.1 F Temperature Source Temporal Pulse Rate 98 Respiratory Rate 14 Blood Pressure 134/88 H Blood Pressure Mean 103 Pulse Ox 98 Oxygen Delivery Method Room Air Positive well nourished and well developed General Appearance ED: well developed HEENT Reports moist mucous membranes Neck supple and no JVD Resp normal respiratory effort and clear to auscultation bilaterally Cardio regular rate, regular rhythm and no murmurs GI normal to inspection, nondistended, normoactive bowel sounds and non-tender Palpation: soft Extremity normal to inspection General Extremety ED: Negative for edema or tenderness General Extremity: Negative for edema Neuro oriented x3, CN's II-XII intact bilaterally and no sensory deficits noted Sensorium / Orientation: alert Motor Exam: strength 5/5 throughout Psych mental status grossly normal Skin Skin Narrative: There is a patchy erythematous rash over the ulnar aspect of the left forearm, radial aspect of the right wrist, and lateral aspects of the lower legs bilaterally. There are no vesicles or pustules. There are no petechia noted. There is no involvement of the mucous membranes. There is no discharge or drainage. MDM MDM MDM Narrative Medical decision making narrative: CBC was within normal limits. PT was 17.5. INR was 1.5. PTT was 31.5. Comprehensive metabolic profile showed a slightly elevated creatinine of 1.35 and a BUN of 21. This is consistent with prior results. Patient was advised of her findings. Patient was given a prescription for triamcinolone cream. Patient was instructed to follow-up with her primary care physician in 5 to 7 days. Patient was also instructed to follow-up with a complaint inspector as needed. Patient and family understood and were agreeable with the plan. All questions were answered. Lab Data Attestation: I reviewed the patient's lab results. Labs: Laboratory Results - last 24 hr 01/27/22 01/27/22 01/27/22 21:10 21:10 21:10 WBC 7.8 RBC 3.90 L Hgb 12.6 Hct 38.2 MCV 97.9 MCH 32.3 H MCHC 33.0 RDW Std Deviation 51.9 H RDW Coeff of Cricket 14.4 Plt Count 204 MPV 11.4 Immature Gran % (Auto) 0.300 Neut % (Auto) 56.8 Lymph % (Auto) 28.6 [place] % (Auto) 10.0 Eos % (Auto) 3.7 Baso % (Auto) 0.6 Absolute Neuts (auto) 4.4 Absolute Lymphs (auto) 2.23 Nucleated RBC % 0 PT 17.5 H INR 1.5 APTT 31.5 Sodium 142 Potassium 4.1 Chloride 108 H Carbon Dioxide 29.0 Anion Gap 5 BUN 21 H Creatinine 1.35 H Estim Creat Clear Calc 22.68 Est GFR (MDRD) Af Amer 48 L Est GFR (MDRD) Non-Af 40 L BUN/Creatinine Ratio 15.6 Glucose 112 H Calcium 10.8 H Total Bilirubin 0.50 AST 14 L ALT 17 Alkaline Phosphatase 133 H Total Protein 6.8 Albumin 3.5 Globulin 3.3 Albumin/Globulin Ratio 1.1 Discharge Plan Triage Chief Complaint: Rash ED Provider: Dakota Patterson Dx/Rx/DC Orders Clinical Impression: Dermatitis Instructions: ED Atopic Dermatitis (Adult) Prescriptions: New triamcinolone acetonide 0.025 % cream 1 applic topical BID Qty: 15 RF: 0 No Action allopurinol 100 mg tablet 100 mg PO DAILY RF: 0 artificial tear(oprfm-rdj-pke) 0.1-0.3-0.2 % drops 1 drp ophthalmic (eye) Q2H PRNRF: 0 levothyroxine 88 mcg tablet 88 mcg PO DAILY RF: 0 atorvastatin 10 MG tablet 10 mg PO QHS RF: 0 paroxetine HCl 10 MG tablet 20 mg PO QHS RF: 0 pantoprazole 40 MG tablet,delayed release (DR/EC) 40 mg PO DAILY RF: 0 apixaban 2.5 MG tablet 2.5 mg PO BID RF: 0 albuterol sulfate 2.5 MG/3 ML solution for nebulization 2.5 mg INHALATION Q6H PRN PRN (Reason: Dyspnea) Qty: 1 RF: 0 loperamide 2 MG capsule 2 mg PO Q6H PRN PRN (Reason: Diarrhea) RF: 0 potassium chloride 10 MEQ tablet extended release 10 meq PO BID RF: 0 diltiazem HCl 120 MG capsule 120 mg PO DAILY Qty: 30 RF: 1 carvedilol 3.125 MG tablet 3.125 mg PO BID Qty: 0 RF: 0 polyethylene glycol 3350 [Miralax] 17 gram Powder In Packet 17 g PO BID RF: 0 hydrocodone-acetaminophen [[place]] 5-325 mg Tablet 1 tab PO Q8H PRN (Reason: Pain) RF: 0 montelukast [Singulair] 10 mg Tablet 10 mg PO QHS RF: 0 melatonin 5 mg Capsule 5 mg PO QHS RF: 0 psyllium husk [Metamucil] 0.4 gram Capsule 0.4 g PO DAILY RF: 0 acetaminophen [Tylenol Ex Str Rapid Release] 500 mg Tablet 500 mg PO Q6H PRN (Reason: Pain) RF: 0 Lactobacillus acidophilus Capsule 10,000 mmu cells PO DAILY RF: 0 furosemide 20 mg tablet 20 mg PO DAILY RF: 0 Primary Care Provider: Wyatt Obrien Referrals: Wyatt Obrien MD [Primary Care Provider] - 3-5 Days Disposition Disposition: Home, Self Care
[2022-01-27 21:27] LABS: Absolute Lymphocyte Count 2.23 X10^3/uL (0.83-4.51); Absolute Neutrophil Count 4.4 X10^3/uL (2.0-7.7); Basophil# 0.05 X10^3/uL; Basophil% 0.6 % (0-1); Eosinophil# 0.29 X10^3/uL; Eosinophils% 3.7 % (0-5); Hematocrit 38.2 % (37-47); Hemoglobin 12.6 g/dL (12.0-15.0); Lymphocyte # 2.23 X10^3/ul (0.83-4.51); Lymphocyte % 28.6 % (19-41); Mean Corpuscular Hgb 32.3 pg (27.0-32.0); Mean Corpuscular Volume 97.9 fL (81-99); Mean Platelet Vol. 11.4 fl (6.2-12.0); Monocyte# 0.78 X10^3/uL; NRBC Flagged by Analyzer 0 % (0-5); Neutrophil # 4.44 X10^3/uL (2.7-7.7); Neutrophil % 56.8 % (47-70); Platelet Count 204 K/mm3 (150-450); RBC Distribution Width CV 14.4 % (11.6-14.6); RBC Distribution Width SD 51.9 fl (35.1-43.9); White Blood Count 7.8 K/mm3 (4.4-11.0)
[2022-01-27 22:13] LABS: ALB/GLOB Ratio 1.1 RATIO (0.9-2.4); AST(SGOT) 14 U/L (15-37); Alanine Aminotransfer ALT/SGPT 17 U/L (13-56); Albumin, Serum 3.5 g/dL (3.2-5.0); Alkaline Phosphatase 133 U/L (45-117); Anion Gap 5 (5-15); BUN 21 mg/dL (7-18); BUN/Creat Ratio 15.6 RATIO (10-20); Calcium,Total 10.8 mg/dL (8.5-10.1); Chloride 108 mmol/L (98-107); Creatinine, Serum 1.35 mg/dL (0.55-1.02); EST Glomerular Filtration Rate 40 mL/min (>60); Est Glom Filt Rate - Afr Amer 48 mL/min (>60); Estimated Creatinine Clearance 22.68 ml/min; Globulin 3.3 g/dL (2.2-4.2); Glucose 112 mg/dL (74-106); Potassium 4.1 mmol/L (3.5-5.1); Protein, Total 6.8 g/dL (6.4-8.2); Sodium Level 142 mmol/L (136-145)
--- NOTE | 2022-01-27 23:03 | ED.RN ---
2300-called lab about pending coags, they stated they had to do something with a new reagent and are running QC's and it may be a little bit before we have results.
[2022-01-28 00:11] LABS: International Normalized Ratio 1.5; Prothrombin Time (Protime)PT. 17.5 SECONDS (11.7-14.9)
[2022-01-28 00:12] LABS: Partial Thromboplast Time 31.5 Seconds (24.1-36.2)
[2022-01-28 02:23] VITALS: BP 130/74; PULSE 86; RESP 15; O2SAT 96
== END 2022-01-28 02:24 | disposition home or self-care (01) ==
PROVIDERS: Emergency Provider Emergency Medicine; PCP Family Medicine; Visit Provider Emergency Medicine
DX: L30.9 Dermatitis, unspecified (principal); F03.90 Unspecified dementia, unspecified severity, without behavioral disturbance, psychotic disturbance, mood disturbance, and anxiety; J44.9 Chronic obstructive pulmonary disease, unspecified; I13.0 Hypertensive heart and chronic kidney disease with heart failure and stage 1 through stage 4 chronic kidney disease, or unspecified chronic kidney disease; I50.32 Chronic diastolic (congestive) heart failure; I48.0 Paroxysmal atrial fibrillation; N18.9 Chronic kidney disease, unspecified; E78.00 Pure hypercholesterolemia, unspecified; Z86.16 Personal history of COVID-19; G47.33 Obstructive sleep apnea (adult) (pediatric); M10.9 Gout, unspecified; Z79.01 Long term (current) use of anticoagulants; Z79.899 Other long term (current) drug therapy; Z79.890 Hormone replacement therapy; F41.9 Anxiety disorder, unspecified; F32.A Depression, unspecified
CPT/HCPCS: 80053; 85025; 85610; 85730; 99283

== ENCOUNTER → 2022-10-12 | Outpatient (CLI) | payer MEDICARE, MEDICAID, SELFPAY ==
--- NOTE | 2022-10-12 09:58 | US_ITS ---
EXAM: US ABDOMEN COMPLETE CLINICAL INDICATION: MASS TECHNIQUE: Real-time ultrasound of the abdomen with image documentation. This report was created using [employer] report generation technology. COMPARISON: None. FINDINGS: LIVER: The liver measures 15.1 cm. There is normal echotexture. No intrahepatic biliary ductal dilation. GALLBLADDER: The common bile duct measures 1.3 cm. The patient is status post cholecystectomy. COMMON BILE DUCT: Unremarkable as visualized. The proximal common bile duct is within normal limits for the patient''s age. PANCREAS: Unremarkable as visualized. No focal abnormality is demonstrated in the pancreas. No pancreatic ductal dilatation. KIDNEYS: The right kidney measures 9.7 x 4.2 x 4.6 cm. Left kidney measures 10.1 x 4.4 x 4.6 cm. There is a 2.0 x 1.5 x 1.5 cm cyst on the left kidney. There is a 3 mm nonobstructing calyceal stone in the left kidney. SPLEEN: Spleen measures 9.6 cm in length. There is a 1.0 x 0.8 x 0.9 cm echogenic structure in the spleen which may represent a hemangioma. AORTA: Proximal aorta measures 1.7 cm, the mid aorta measures 1.8 cm the distal aorta measures 1.3 cm. INFERIOR VENA CAVA: Unremarkable. The IVC is patent. OTHER VASCULATURE: The left iliac artery measures 8 mm in the right iliac artery measures 1 cm. FREE FLUID: Images of the region of palpable abnormality show no mass or fluid collection. US/Abdomen Complete IMPRESSION: 1. Status post cholecystectomy. 2. Echogenic structure in the spleen which may represent a hemangioma. 3. No evidence of a mass lesion in the region of a palpable abnormality. Electronically Signed: Chun Alexander MD at 17:59 EST ,
== END | disposition home or self-care (01) ==
PROVIDERS: PCP Family Medicine; Referring Provider Family Medicine; Visit Provider Family Medicine
DX: R19.00 Intra-abdominal and pelvic swelling, mass and lump, unspecified site (principal)
CPT/HCPCS: 76700

== ENCOUNTER 2023-04-05 13:43 | Emergency (ER) | payer MEDICARE, MEDICAID, SELFPAY ==
[2023-04-05 13:44] VITALS: BP 124/89; PULSE 89; RESP 14; TEMP 36.1; O2SAT 98
[2023-04-05 14:01] VITALS: BMI 29.4
--- NOTE | 2023-04-05 14:15 | ED.RN ---
PT STATES SHE TAKES ELIQUIS AT HOME. ALESSANDRO HECK AWARE.
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
--- NOTE | 2023-04-05 15:00 | RAD_ITS ---
STUDY: X-RAY CHEST REASON FOR EXAM: Female, 83 years old. Chest trauma TECHNIQUE: Single AP portable view of the chest. COMPARISON: Comparison is made with prior study dated May 21, 2020. FINDINGS: Stable mild increased markings at the left lung base and mild encroachment at the right lung base suggestive of scarring. There is no demonstrated pleural abnormality. There is borderline cardiomegaly. Normal mediastinum and awais. Normal visualized pulmonary arteries. There is atherosclerotic calcification of the aortic arch with tortuosity. There are diffuse degenerative changes of the visualized thoracic spine. Scoliosis. Normal visualized ribs, clavicles, and shoulders. There is no demonstrated abnormality of the visualized soft tissue structures of the upper abdomen. RAD/Chest 1 View (Portable) IMPRESSION: Findings suggest a mild degree of bibasilar scarring. Electronically Signed: Bharath Barclay MD at 15:25 EDT ,
--- NOTE | 2023-04-05 15:10 | CT_ITS ---
STUDY: CT BRAIN WITHOUT CONTRAST REASON FOR EXAM: Female, 83 years old. Fall, on eliquis RADIATION DOSAGE (If Supplied By Facility): CTDIvol = ( 44.99 ) mGy, DLP = ( 812.98 ) mGycm TECHNIQUE: Transaxial CT imaging of the brain was performed without administration of intravenous contrast material. Individualized dose optimization techniques were used for this CT. COMPARISON: Comparison is made with prior study dated July 14, 2020. FINDINGS: Normal soft tissue structures. Normal calvarium. There is mild cerebral atrophy with widening of the extra-axial spaces and ventricular dilatation. There are areas of decreased attenuation within the white matter tracts of the supratentorial brain, consistent with microvascular disease changes. Normal basal ganglia and thalami. Normal brainstem. Normal cerebellum. There is no intracranial hemorrhage. There are no findings of an acute ischemic infarction. Atherosclerotic plaque formation of the cavernous portions of the internal carotid arteries bilaterally. Mucosal thickening of the left maxillary sinus. CT/Brain/Head without Contrast IMPRESSION: Chronic involutional changes of the brain. Electronically Signed: Bharath Barclay MD at 15:33 EDT ,
--- NOTE | 2023-04-05 15:10 | CT_ITS ---
STUDY: CT CERVICAL SPINE WITHOUT CONTRAST REASON FOR EXAM: Female, 83 years old. Neck pain, fall RADIATION DOSAGE (If Supplied By Facility): CTDIvol = ( 19.78 ) mGy, DLP = ( 430.94 ) mGycm TECHNIQUE: High resolution transaxial imaging was performed without contrast material. Sagittal and coronal images were reconstructed. Individualized dose optimization techniques were used for this CT. COMPARISON: None FINDINGS: Normal craniovertebral junction. There are degenerative changes of the anterior atlantoaxial articulation. Normal odontoid process. Normal cervical lordosis. Multilevel spondylosis. C2-3: Marked degree of disc space narrowing. Spondylosis. Facet joint osteoarthritis and hypertrophy. Bilateral neural foraminal stenosis. C3-4: Marked in degree of disc space narrowing. Spondylosis. Uncovertebral arthrosis. Bilateral neural foraminal stenosis. C4-5: Moderate degree of disc space narrowing with spondylosis. Uncovertebral arthrosis and facet joint osteoarthritis. Bilateral neural foraminal stenosis. C5-6: Moderate degree of disc space narrowing. Spondylosis. Facet joint osteoarthritis. Bilateral neural foraminal stenosis. C6-7: Moderate degree of disc space narrowing and spondylosis. C7-T1: Normal endplates. Normal disc height and morphology. Normal central canal and intervertebral neuroforamina. Calcification of the carotid bifurcations bilaterally. CT/Spine Cervical without Contras IMPRESSION: Multilevel degenerative changes, as described above. Electronically Signed: Bharath Barclay MD at 15:31 EDT ,
[2023-04-05 15:51] VITALS: BP 127/74; PULSE 68; RESP 17; O2SAT 95
--- NOTE | 2023-04-05 16:07 | ED.RN ---
PT HAS PRESSURE WOUND TO COCCYX. RED AND PAINFUL PER PT. ADULT DIAPER CHANGED PRIOR TO DISCHARGE.
--- NOTE | 2023-04-05 16:11 | ED.RN ---
THIS RN CALLED REPORT TO [facility] AT 1609. REPORT GIVEN TO MILES MAXWELL. EXPLAINED INFORMATION ON DISCHARGE PAPERWORK INCLUDING DOCTOR ORDER TO HOLD NEXT TWO DOSES OF ELIQUIS AND FOLLOW UP WITH PCP IN 3-5 DAYS. PT TO BE BROUGHT BACK TO [facility] BY DAUGHTER.
== END 2023-04-05 16:13 | disposition home or self-care (01) ==
PROVIDERS: Emergency Provider Emergency Medicine; Visit Provider Emergency Medicine
DX: S00.83XA Contusion of other part of head, initial encounter (principal); I50.32 Chronic diastolic (congestive) heart failure; I48.91 Unspecified atrial fibrillation; S20.20XA Contusion of thorax, unspecified, initial encounter; M54.2 Cervicalgia; N18.9 Chronic kidney disease, unspecified; Z79.01 Long term (current) use of anticoagulants; W19.XXXA Unspecified fall, initial encounter
CPT/HCPCS: 70450; 71045; 72125; 99285

== ENCOUNTER 2023-12-15 22:22 | Emergency (ER) | payer MEDICARE, MEDICAID, SELFPAY ==
[2023-12-15 22:23] VITALS: PULSE 87; RESP 18; O2SAT 92
[2023-12-15 22:24] VITALS: BP 106/75; PULSE 95; RESP 16; TEMP 36.8; O2SAT 88; BMI 27.8
--- NOTE | 2023-12-15 22:49 | ED.RN ---
This RN called the [facility] to see if the patients son was aware that she is here, the son was aware and will not be coming to the hospital at this time.
[2023-12-15 22:57] VITALS: BP 112/65; RESP 16; O2SAT 94
--- NOTE | 2023-12-15 22:57 | CT_ITS ---
INDICATION: fall/trauma EXAMINATION: CT BRAIN WITHOUT CONTRAST CT CERVICAL SPINE WITHOUT CONTRAST TECHNIQUE: Multiple axial images were obtained of the head and cervical spine without intravenous contrast. Coronal and sagittal reformats of each are submitted for review. A radiation dose optimization technique was used for this scan. RADIATION DOSAGE (If Supplied By Facility): CTDIvol = ( 44.99 ) mGy, DLP = ( 1228.11 ) mGycm COMPARISON: 04/05/2023 FINDINGS: BRAIN: BRAIN PARENCHYMA: No intra- or extra-axial hemorrhage. No evidence of acute infarct. No intracranial mass or mass effect. There is preservation of the [place]/white matter interface. Posterior fossa structures are unremarkable. Patchy periventricular and deep white matter hypoattenuation is consistent with moderate small vessel ischemic change. CSF SPACES: No cerebral volume loss. No hydrocephalus. Basal cisterns are patent. CALVARIUM, SKULL BASE, PARANASAL SINUSES AND MASTOID AIR CELLS: Thin left parietal subgaleal hematoma. Calvarium and skull base are intact. Paranasal sinuses are clear. Mastoid air cells are clear. No discrete lytic or blastic abnormalities. ORBITS: Both globes, extraocular muscles, optic nerves and retrobulbar fat appear unremarkable. CERVICAL SPINE: VERTEBRAE: No fracture or traumatic subluxation. No discrete lytic or blastic abnormality. Normal alignment. Normal craniocervical junction and cervicothoracic junction. DISCS and SPINAL CANAL: There is multilevel disc space narrowing with endplate osteophyte formation and facet arthropathy. No critical stenosis. NECK SOFT TISSUES: No prevertebral soft tissue swelling. There is no cervical adenopathy. LUNG APICES: Clear. CT/Spine Cervical without Contras IMPRESSION: No acute intracranial finding. No acute fracture or malalignment of the cervical spine. Electronically Signed: Benjamin Schmidt MD at 23:48 EDT ,
--- NOTE | 2023-12-15 22:57 | CT_ITS ---
INDICATION: fall/trauma EXAMINATION: CT BRAIN WITHOUT CONTRAST CT CERVICAL SPINE WITHOUT CONTRAST TECHNIQUE: Multiple axial images were obtained of the head and cervical spine without intravenous contrast. Coronal and sagittal reformats of each are submitted for review. A radiation dose optimization technique was used for this scan. RADIATION DOSAGE (If Supplied By Facility): CTDIvol = ( 44.99 ) mGy, DLP = ( 1228.11 ) mGycm COMPARISON: 04/05/2023 FINDINGS: BRAIN: BRAIN PARENCHYMA: No intra- or extra-axial hemorrhage. No evidence of acute infarct. No intracranial mass or mass effect. There is preservation of the [place]/white matter interface. Posterior fossa structures are unremarkable. Patchy periventricular and deep white matter hypoattenuation is consistent with moderate small vessel ischemic change. CSF SPACES: No cerebral volume loss. No hydrocephalus. Basal cisterns are patent. CALVARIUM, SKULL BASE, PARANASAL SINUSES AND MASTOID AIR CELLS: Thin left parietal subgaleal hematoma. Calvarium and skull base are intact. Paranasal sinuses are clear. Mastoid air cells are clear. No discrete lytic or blastic abnormalities. ORBITS: Both globes, extraocular muscles, optic nerves and retrobulbar fat appear unremarkable. CERVICAL SPINE: VERTEBRAE: No fracture or traumatic subluxation. No discrete lytic or blastic abnormality. Normal alignment. Normal craniocervical junction and cervicothoracic junction. DISCS and SPINAL CANAL: There is multilevel disc space narrowing with endplate osteophyte formation and facet arthropathy. No critical stenosis. NECK SOFT TISSUES: No prevertebral soft tissue swelling. There is no cervical adenopathy. LUNG APICES: Clear. CT/Brain/Head without Contrast IMPRESSION: No acute intracranial finding. No acute fracture or malalignment of the cervical spine. Electronically Signed: Benjamin Schmidt MD at 23:48 EDT ,
--- NOTE | 2023-12-15 22:58 | ED.VIS.FALL ---
HPI HPI - Fall History of Present Illness Chief Complaint: Fall Informant: patient and EMS Narrative Narrative: Patient is only historian at the time, she states she fell at the [facility] because no one would come and help me. She states she was in her recliner, she needed help getting out of it, but she managed to get out of it on her own, but she was close to her bed and her walker and she turned and tripped over her walker and fell to the floor injuring her head, right shoulder, and right side of her neck. No other injuries or pain. No loss consciousness. She has mild headache. She is on Eliquis because of bilateral PEs and A-fib. She denies any systemic symptoms or recent illness. Denies changes in her vision. She has a skin lesion on her right cheek that she states is a squamous cell cancer that she has already seen dermatology for it is scheduled to get it taken off, which is where she is now bleeding from because of this fall. [facility] Medical History Acute blood loss anemia Acute pancreatitis Anxiety Anxiety and depression Arthritis AV block, 1st degree Back pain Cardiology follow-up encounter Carotid stenosis Chronic diastolic heart failure Chronic kidney disease COPD (chronic obstructive pulmonary disease) COVID-19 Dementia Depression Diastolic CHF, acute Dyspnea on exertion Essential hypertension Gastric reflux GERD (gastroesophageal reflux disease) Gout History of atrial fibrillation History of CHF (congestive heart failure) History of CVA (cerebrovascular accident) History of echocardiogram History of renal disease History of stress test Hyperparathyroidism Hypertension Hypothyroidism Loss of hearing Lymphomatoid papulosis Meningioma Nausea and vomiting Non-smoker Obesity Obstructive sleep apnea On home oxygen therapy Osteoarthritis Paroxysmal atrial fibrillation Pressure ulcer Pressure ulcer of right buttock, stage 2 Pure hypercholesterolemia Right bundle branch block Stroke/cerebrovascular accident Thoracic aortic aneurysm Thyroid disease Upper GI bleeding Uses wheelchair UTI (urinary tract infection) Home Medications atorvastatin 10 mg tablet 10 mg PO QHS cholesterol 04/17/17 [History Last Taken 07/28/20] apixaban 2.5 mg tablet 2.5 mg PO BID blood thinner 04/03/20 [History Last Taken 06/27/21] pantoprazole 40 mg tablet,delayed release 40 mg PO DAILY GERD 04/03/20 [History Last Taken 07/28/20] paroxetine HCl 10 mg tablet 20 mg PO QHS depression 04/03/20 [History Last Taken 07/28/20] albuterol sulfate 2.5 mg/3 mL (0.083 %) solution for nebulization 2.5 mg (3 mL) inhalation Q6H PRN PRN Dyspnea #1 vial 04/04/20 [Rx Last Taken Unknown] furosemide 20 mg tablet 20 mg PO DAILY CHF 04/20/20 [History Last Taken 07/28/20] loperamide 2 mg capsule 2 mg PO Q6H PRN PRN Diarrhea 05/14/20 [History Last Taken Unknown] potassium chloride 10 mEq tablet,extended release 10 meq PO BID supplement 05/14/20 [History Last Taken 07/28/20] diltiazem HCl 120 mg capsule,extended release 24 hr 120 mg PO DAILY #30 caps 05/18/20 [Rx Last Taken 07/28/20] carvedilol 3.125 mg tablet 3.125 mg PO BID #0 tabs 05/23/20 [Rx Last Taken 07/28/20] Lactobacillus acidophilus 10,000 mmu cells PO DAILY 06/27/21 [History Last Taken Unknown] acetaminophen 500 mg tablet 500 mg PO Q6H PRN Pain 06/27/21 [History Last Taken Unknown] hydrocodone-acetaminophen 5-325mg 5mg-325mg 1 tab PO Q8H PRN Pain 06/27/21 [History Last Taken Unknown] montelukast 10 mg tablet (Singulair) 10 mg PO QHS 06/27/21 [History Last Taken Unknown] allopurinol 100 mg tablet 100 mg PO DAILY 11/20/21 [History Last Taken Unknown] artificial tears(nebscax-kpnkopxq-acavccz) 0.1 %-0.3 %-0.2 % eye drops 1 drp ophthalmic (eye) Q2H PRN 11/20/21 [History Last Taken Unknown] levothyroxine 88 mcg tablet 88 mcg PO DAILY 11/20/21 [History Last Taken Unknown] triamcinolone acetonide 0.025 % topical cream 1 applic topical BID PRN rash #15 grams 01/28/22 [Rx Last Taken Unknown] polyethylene glycol 3350 17 gram oral powder packet (Miralax) 17 g PO DAILY 05/23/22 [History Last Taken Unknown] Handicap Parking Placard #1 ea 02/19/23 [Rx Last Taken Unknown] Allergy/AdvReac Type Severity Reaction Status Date / Time adhesive Allergy Rash Verified 12/15/23 22:29 irbesartan Allergy Unknown Verified 12/15/23 22:29 solifenacin [From Vesicare] Allergy Unknown Verified 12/15/23 22:29 sulindac [Sulindac] Allergy Unknown Verified 12/15/23 22:29 lisinopril AdvReac Other Verified 12/15/23 22:29 losartan potassium AdvReac Other Verified 12/15/23 22:29 [From Cozaar] metoprolol AdvReac GI Upset Verified 12/15/23 22:29 ramipril [From Altace] AdvReac Other Verified 12/15/23 22:29 tramadol AdvReac Unknown Verified 12/15/23 22:29 Family History Father CVA (cerebral vascular accident) Mother CAD (coronary artery disease) Congestive heart failure Surgical History H/O total knee replacement History of amputation of great toe History of carpal tunnel surgery of right wrist History of esophageal dilatation History of esophagogastroduodenoscopy (EGD) History of incisional hernia repair History of total hip replacement Hx of cholecystectomy Hx of hernia repair Hx of tonsillectomy Hx of tubal ligation Social History Smoking Status: Never smoker alcohol intake: never substance use type: does not use caffeine: No what type of physical activity do you participate in: walking ROS ROS ED Constitutional Constitutional ED: Denies chills or fever(s) Eyes Eyes: Denies change in vision or diplopia ENT ENT ED: Reports facial pain; Denies ear pain, epistaxis or rhinorrhea Cardiovascular Cardiovascular: Denies chest pain or palpitations Respiratory/Chest Respiratory/Chest: Denies cough or dyspnea Gastrointestinal Gastrointestinal: Denies abdominal pain, diarrhea, melena, nausea or vomiting Genitourinary Genitourinary ED: Denies dysuria or hematuria Musculoskeletal Musculoskeletal: Reports extremity pain and neck pain; Denies back pain Integumentary Reports Abrasions; Denies abscess, laceration or rash Neurologic Neurologic: Reports headache(s); Denies confusion, paresthesias or weakness EXAM Physical Exam Const Vital Signs: 12/15/23 22:24 12/15/23 22:23 12/15/23 22:30 Temperature 98.3 F Temperature Source Temporal Pulse Rate 95 87 Respiratory Rate 16 18 Respiratory Effort Normal Respiratory Depth Normal Respiratory Pattern Normal Blood Pressure 106/75 Blood Pressure Mean 85 Pulse Ox 88 92 Oxygen Delivery Method Room Air Nasal Cannula Room Air Oxygen Flow Rate (L/min) 2 Positive well nourished and well developed General Appearance ED: well developed and NAD HEENT Reports TM's clear and nasal mucous membranes and turbinates normal Face and Sinus: facial tenderness right (On the cheek soft tissues where there is a mass and subtle abrasion/bleeding from it only, no bony facial tenderness or epistaxis) Tympanic Membrane ED: Yes TM's clear Eyes PERRL and EOMs intact bilaterally Visual Acuity: other Other Details: no entrapment or pain with extraocular movements Neck Neck Narrative: Diffuse neck tenderness throughout midline and right paraspinal musculature. Prehospital c-collar left in place. General: tenderness Chest Wall inspection of chest normal and palpation of chest normal Chest: symmetrical chest wall rise; Negative for crepitus or tenderness Resp normal respiratory effort and clear to auscultation bilaterally Percussion: other equal BS bilat GI normal to inspection, nondistended, normoactive bowel sounds, soft to palpation and non-tender Back/Spine normal ROM Cervical Spine: Negative for cervical spine tenderness Thoracic Spine / Upper Back: Negative for thoracic spinal tenderness Lumbar Spine / Lower Back: Negative for lumbar spinal tenderness Extremity normal to inspection and full ROM Extremity Narrative: Mild tenderness posterior aspect of the right shoulder mostly in the periscapular area and trapezius, she is able to range the right shoulder in all movements including internal and external rotation, she can reach out to the ceiling, stating it hurts posteriorly but no other pain in the proximal humerus is nontender. General Extremety ED: Yes tenderness Neuro oriented x3, CN's II-XII intact bilaterally, moves all extremities, no focal motor deficits and no sensory deficits noted Ten[place] Coma Scale: document GCS findings Spontaneous Obeys Commands Oriented 15 Sensorium / Orientation: awake and alert Psych mental status grossly normal and thought process normal Skin no wounds Skin Narrative: Abrasion to the right face no other signs of trauma. There is ecchymosis/purpura to the left hand she states that is from a fall a week or 2 ago. Lesions: no lesions Rashes: no rashes MDM MDM MDM Narrative Medical decision making narrative: Three-view x-ray series of the right shoulder negative for acute fracture including the scapula, consistent with her clinical exam. I reviewed images CT head and cervical spine, as well as the report which I agree with. Negative for any acute. C-collar removed, she is able to move her head and neck around with minimal stiffness and no significant pain or neurologic symptoms. Her facial wound was cleansed and dressed with bacitracin I do not think there is anything to repair here, [facility] condition. Radiography Diagnostic Testing: Clinical Impression(s) from Imaging Studies Brain CT 12/15/23 22:57 IMPRESSION: No acute intracranial finding. No acute fracture or malalignment of the cervical spine. Electronically Signed: Benjamin Schmidt MD at 23:48 EDT , Cervical Spine CT 12/15/23 22:57 IMPRESSION: No acute intracranial finding. No acute fracture or malalignment of the cervical spine. Electronically Signed: Benjamin Schmidt MD at 23:48 EDT , Shoulder X-Ray 12/15/23 23:30 IMPRESSION: No fracture or malalignment. Electronically Signed: Benjamin Schmidt MD at 23:49 EDT , Discharge Plan Triage Chief Complaint: Fall ED Provider: Rajesh Taylor Dx/Rx/DC Orders Clinical Impression: Acute cervical myofascial strain, Fall from slip, trip, or stumble, Abrasion of face, Closed head injury without loss of consciousness, Contusion of right shoulder Instructions: ED Head Injury (Adult) Prescriptions: No Action allopurinol 100 mg tablet 100 mg PO DAILY artificial tear([id number]-[id number]) 0.1-0.3-0.2 % drops 1 drp ophthalmic (eye) Q2H PRN levothyroxine 88 mcg tablet 88 mcg PO DAILY atorvastatin 10 MG tablet 10 mg PO QHS paroxetine HCl 10 MG tablet 20 mg PO QHS pantoprazole 40 MG tablet,delayed release (DR/EC) 40 mg PO DAILY apixaban 2.5 MG tablet 2.5 mg PO BID albuterol sulfate 2.5 MG/3 ML solution for nebulization 2.5 mg INHALATION Q6H PRN PRN (Reason: Dyspnea) Qty: 1 0RF loperamide 2 MG capsule 2 mg PO Q6H PRN PRN (Reason: Diarrhea) potassium chloride 10 MEQ tablet extended release 10 meq PO BID diltiazem HCl 120 MG capsule 120 mg PO DAILY Qty: 30 1RF carvedilol 3.125 MG tablet 3.125 mg PO BID Qty: 0 0RF hydrocodone-acetaminophen [[place]] 5-325 mg Tablet 1 tab PO Q8H PRN (Reason: Pain) montelukast [Singulair] 10 mg Tablet 10 mg PO QHS acetaminophen [Tylenol Ex Str Rapid Release] 500 mg Tablet 500 mg PO Q6H PRN (Reason: Pain) Lactobacillus acidophilus Capsule 10,000 mmu cells PO DAILY polyethylene glycol 3350 [Miralax] 17 gram powder in packet 17 g PO DAILY triamcinolone acetonide 0.025 % cream 1 applic topical BID PRN (Reason: rash) Qty: 15 0RF furosemide 20 mg tablet 20 mg PO DAILY (DME) Handicap Parking Placard See Rx Instructions .Route .MEDSUPPLY Qty: 1 0RF Rx Instructions: As directed Primary Care Provider: Familia Maher Referrals: Familia Maher DO [Primary Care Provider] - As Needed Disposition Disposition: Home, Self Care
[2023-12-15] MEDS: Acetaminophen 500 MG Tablet 1000 MG PO (23:11)
--- NOTE | 2023-12-15 23:30 | RAD_ITS ---
INDICATION: pain/injury EXAMINATION/TECHNIQUE: X-RAY - RIGHT XR Shoulder Min 2 Views 2 VIEWS COMPARISON: No relevant prior comparison study available FINDINGS: SOFT TISSUES: No soft tissue swelling or gas. No radiopaque foreign body. BONES/JOINTS: No acute fracture or subluxation.. Normal alignment. Preservation of the joint space.. No sclerotic or destructive changes observed. RAD/Shoulder min 2 Views IMPRESSION: No fracture or malalignment. Electronically Signed: Benjamin Schmidt MD at 23:49 EDT ,
[2023-12-16 00:23] VITALS: PULSE 83; RESP 16; O2SAT 96
--- NOTE | 2023-12-16 01:42 | ED.RN ---
ROSHAN BOOTHE NURSE CALLED FOR PATIENT UPDATE AND [facility] ETA. I SPOKE WITH NURSE. LYNNETTE.
[2023-12-16 02:00] VITALS: PULSE 78; RESP 22; O2SAT 91
[2023-12-16 04:00] VITALS: BP 120/103; PULSE 84; RESP 18; O2SAT 94
[2023-12-16 06:00] VITALS: BP 106/99; PULSE 84; RESP 22; O2SAT 96
[2023-12-16 06:56] VITALS: BP 113/74; PULSE 89; RESP 18; TEMP 36.4; O2SAT 96
== END 2023-12-16 06:59 | disposition home or self-care (01) ==
PROVIDERS: Emergency Provider Emergency Medicine; Visit Provider Emergency Medicine
DX: S16.1XXA Strain of muscle, fascia and tendon at neck level, initial encounter (principal); J44.9 Chronic obstructive pulmonary disease, unspecified; I48.0 Paroxysmal atrial fibrillation; S40.011A Contusion of right shoulder, initial encounter; S00.81XA Abrasion of other part of head, initial encounter; G47.33 Obstructive sleep apnea (adult) (pediatric); Z79.01 Long term (current) use of anticoagulants; Z86.711 Personal history of pulmonary embolism; Z86.16 Personal history of COVID-19; Z86.73 Personal history of transient ischemic attack (TIA), and cerebral infarction without residual deficits; W19.XXXA Unspecified fall, initial encounter
CPT/HCPCS: 70450; 72125; 73030; 99283; A4216